=== PATIENT | female | born 1955 | race Caucasian/White ===

== ENCOUNTER 2020-03-08 11:14 | Inpatient (IN) | payer MEDICARE, OTHER ==
--- NOTE | 2020-03-08 11:33 | ER ---
Nurse's Notes [facility] Name: Mariana Turner Age: 65 yrs Sex: Female : 1955 Arrival Date: 03/08/2020 Time: 11:19 Bed 3 Private MD: Diagnosis: Chronic obstructive pulmonary disease with (acute) exacerbation;Hypoxemia Presentation: 03/08 11:19 Chief complaint: EMS states: Pt from home, called EMS for SOB, hx of COPD and CHF, ph reports that SOB began this morning, no relief w/ home nebulizer tx, 81% Spo2 on home o2 at 6L, improved to 97% on neb tx, d/c from [facility] yesterday. Coronavirus screen: Patient denies a cough. Patient reports shortness of breath or difficulty breathing. Patient denies measured and/or subjective temperature greater than 100.4F prior to today's visit. Patient denies travel on a cruise ship or to a country the [facility] currently lists as an affected area. Patient denies contact with known and/or suspected case of COVID-19. Ebola Screen: No symptoms or risks identified at this time. Initial Sepsis Screen: Does the patient meet any 2 criteria? No. Patient's initial sepsis screen is negative. Does the patient have a suspected source of infection? No. Patient's initial sepsis screen is negative. Risk Assessment: Do you want to hurt yourself or someone else? Patient reports no desire to harm self or others. Onset of symptoms was March 08, 2020. 11:19 Method Of Arrival: EMS: [facility] 11:19 Acuity: ANDRADE 2 ph Historical: - Allergies: 11:24 PENICILLINS; ph - PMHx: 11:24 CHF; COPD; Anxiety; Cancer, Breast; ph - Immunization history:: Adult Immunizations unknown. - Social history:: Smoking status: Patient reports the use of cigarette tobacco products, smokes one-half pack cigarettes per day. Screenin:24 Abuse screen: Denies threats or abuse. Denies injuries from another. Nutritional ph screening: No deficits noted. Tuberculosis screening: No symptoms or risk factors identified. Fall Risk None identified. Assessment: 11:30 General: Appears in no apparent distress. Behavior is cooperative, appropriate for age, ph anxious. 11:30 Pain: Denies pain. Neuro: Level of Consciousness is awake, alert, obeys commands, ph Oriented to person, place, time, situation. Cardiovascular: Reports shortness of breath, Denies chest pain, nausea, palpitations, syncope, vomiting, Rhythm is sinus tachycardia. Respiratory: Reports shortness of breath at rest labored breathing Airway is patent Respiratory effort is labored, using tripod position, Respiratory pattern is tachypnea. GI: No signs and/or symptoms were reported involving the gastrointestinal system. Derm: Skin is fragile, is thin, Skin is pink, warm \T\ dry. Musculoskeletal: Circulation, motion, and sensation intact. Range of motion: intact in all extremities. 11:45 Respiratory: Patient placed on BiPAP:. ph 12:18 Reassessment: Patient appears in no apparent distress at this time. Patient and/or ph family updated on plan of care and expected duration. Pain level reassessed. Pt sitting up in bed, bi-pap in place, reports that SOB is improving, hospitalist at bedside to speak w/ pt. 12:51 Reassessment: Report called to KURT Esteban. ph Vital Signs: 11:19 BP 174 / 112; Pulse 113; Resp 26; Temp 97.4; Pulse Ox 99% on Nebulizer Mask; Weight ph 56.7 kg; 12:19 Pulse 129; Resp 20; Pulse Ox 98% on BiPAP; ph 12:19 BP 93 / 53; ph 12:44 BP 142 / 69; Pulse 114; Resp 20; Temp 97.6; Pulse Ox 98% on BiPAP; ph ED Course: 11:19 Patient arrived in ED. ph 11:20 Chet Leonard MD is Attending Physician. dheeraj 11:23 Triage completed. ph 11:24 Arm band placed on right wrist. Patient placed in an exam room, on a stretcher, on ph oxygen, on laboratory monitor, on pulse oximetry. 11:25 Patient has correct armband on for positive identification. Bed in low position. Call ph light in reach. Side rails up X2. threat monitoring analyst on. Pulse ox on. NIBP on. Door closed. Warm blanket given. 11:27 Delroy Wharton, KURT is Primary Nurse. em 11:32 Doron West DO is Hospitalizing Provider. dheeraj 11:35 Inserted saline lock: 22 gauge in left hand, using aseptic technique. ph 12:03 XRAY Chest (1 view) In Process Unspecified. EDMS 13:04 EKG done, by nuclear medicine technologist. reviewed by Chet Leonard MD. at1 13:11 Naima Myers, RN is Primary Nurse. ph 13:15 No provider procedures requiring assistance completed. Patient admitted, IV remains in ph place. Administered Medications: 11:35 Drug: Xopenex 3.75 mg Route: Inhalation; ph 12:49 Follow up: Response: No adverse reaction ph 11:38 Drug: SOLU-Medrol 125 mg Route: IVP; Site: left hand; ph 12:49 Follow up: Response: No adverse reaction ph 11:40 Drug: Decadron - Dexamethasone 10 mg Route: IVP; Site: left hand; ph 12:48 Follow up: Response: No adverse reaction ph 11:47 Not Given (Physician Discretion): AtroVENT Aerosol 0.5 mg Inhalation once em 11:50 Drug: NS 0.9% 500 ml Route: IV; Rate: bolus; Site: left hand; ph 12:48 Follow up: Response: No adverse reaction; IV Status: Completed infusion; IV Intake: ph 500ml 11:50 Drug: levofloxacin 500 mg Volume: 100 ml; Route: IVPB; Infused Over: 60 mins; Site: ph left hand; 12:49 Follow up: Response: No adverse reaction; IV Status: Completed infusion ph 11:55 Drug: Ativan 0.5 mg Route: IVP; Site: left hand; ph 12:49 Follow up: Response: No adverse reaction; Anxiety decreased ph 12:26 Drug: NS 0.9% 1000 ml Route: IV; Rate: 125 ml/hr; Site: left hand; ph 12:48 Follow up: Response: No adverse reaction; IV Status: Infusion continued upon admission ph Intake: 12:48 IV: 500ml; Total: 500ml. ph Outcome: 11:33 Decision to Hospitalize by Provider. dheeraj 13:16 Patient left the ED. ph 13:16 Admitted to Tele accompanied by tech, via stretcher, room 215, with oxygen, with chart. ph 13:16 Condition: stable 13:16 Instructed on the need for admit. Signatures: Dispatcher [employer] Chet Albrecht MD MD cha Munoz, Edgar, RN RN em Maryam Aviles, bellperson EKG Tat1 Naima Myers, KURT RN ph Corrections: (The following items were deleted from the chart) 12:26 12:19 BP 168 / 118; ph ph 15:51 12:18 Reassessment: Patient appears in no apparent distress at this time. Patient ph and/or family updated on plan of care and expected duration. Pain level reassessed. Pt sitting up in bed, bi-pap in place, reports that SOB is improving, hospitalist at bedside to speak w/ pt ph
--- NOTE | 2020-03-08 11:33 | EDPHYS ---
Physician Documentation [facility] Name: Mariana Turner Age: 65 yrs Sex: Female : 1955 Arrival Date: 03/08/2020 Time: 11:19 Bed 3 Private MD: ED Physician Chet Leonard HPI: 03/08 11:28 This 65 yrs old Female presents to ER via EMS with complaints of Breathing dheeraj Difficulty. 11:28 The patient has shortness of breath at rest, with light activity. Onset: The dheeraj symptoms/episode began/occurred yesterday. Duration: The symptoms are continuous, and are steadily getting worse. The patient's shortness of breath has no apparent modifying factors, is aggravated by nothing, is alleviated by nebulizer treatment, pursed lip breathing, sitting up, application of supplemental oxygen. Associated signs and symptoms: Pertinent positives: non-productive cough. Severity of symptoms: At their worst the symptoms were mild in the emergency department the symptoms are unchanged. The patient has experienced similar episodes in the past, multiple times. Historical: - Allergies: 11:24 PENICILLINS; ph - PMHx: 11:24 CHF; COPD; Anxiety; Cancer, Breast; ph - Immunization history:: Adult Immunizations unknown. - Social history:: Smoking status: Patient reports the use of cigarette tobacco products, smokes one-half pack cigarettes per day. ROS: 11:29 Constitutional: Negative for fever, chills, and weight loss, Eyes: Negative for injury, dheeraj pain, redness, and discharge, ENT: Negative for injury, pain, and discharge, Neck: Negative for injury, pain, and swelling, Back: Negative for injury and pain, : Negative for injury, bleeding, discharge, and swelling, MS/Extremity: Negative for injury and deformity, Skin: Negative for injury, rash, and discoloration, Neuro: Negative for headache, weakness, numbness, tingling, and seizure, Psych: Negative for depression, anxiety, suicide ideation, homicidal ideation, and hallucinations, Allergy/Immunology: Negative for hives, rash, and allergies, Endocrine: Negative for neck swelling, polydipsia, polyuria, polyphagia, and marked weight changes, Hematologic/Lymphatic: Negative for swollen nodes, abnormal bleeding, and unusual bruising. 11:29 Cardiovascular: Positive for chest pain, palpitations. 11:29 Respiratory: Positive for cough, shortness of breath, at rest. Exam: 11:29 Constitutional: This is a well developed, well nourished patient who is awake, alert, dheeraj and in no acute distress. Head/Face: Normocephalic, atraumatic. Eyes: Pupils equal round and reactive to light, extra-ocular motions intact. Lids and lashes normal. Conjunctiva and sclera are non-icteric and not injected. Cornea within normal limits. Periorbital areas with no swelling, redness, or edema. ENT: Nares patent. No nasal discharge, no septal abnormalities noted. Tympanic membranes are normal and external auditory canals are clear. Oropharynx with no redness, swelling, or masses, exudates, or evidence of obstruction, uvula midline. Mucous membranes moist. Neck: Trachea midline, no thyromegaly or masses palpated, and no cervical lymphadenopathy. Supple, full range of motion without nuchal rigidity, or vertebral point tenderness. No Meningismus. Chest/axilla: Normal chest wall appearance and motion. Nontender with no deformity. No lesions are appreciated. Cardiovascular: Regular rate and rhythm with a normal S1 and S2. No gallops, murmurs, or rubs. Normal PMI, no JVD. No pulse deficits. Abdomen/GI: Soft, non-tender, with normal bowel sounds. No distension or tympany. No guarding or rebound. No evidence of tenderness throughout. Back: No spinal tenderness. No costovertebral tenderness. Full range of motion. Female : Normal external genitalia. Skin: Warm, dry with normal turgor. Normal color with no rashes, no lesions, and no evidence of cellulitis. MS/ Extremity: Pulses equal, no cyanosis. Neurovascular intact. Full, normal range of motion. Neuro: Awake and alert, GCS 15, oriented to person, place, time, and situation. Cranial nerves II-XII grossly intact. Motor strength 5/5 in all extremities. Sensory grossly intact. Cerebellar exam normal. Normal gait. Psych: Awake, alert, with orientation to person, place and time. Behavior, mood, and affect are within normal limits. 11:29 Respiratory: moderate respiratory distress is noted, Respirations: labored breathing, that is moderate, that is severe, Breath sounds: decreased breath sounds, are heard in the right upper lobe, left upper lobe, right middle lobe, left lower lobe, right lower lobe, left posterior upper lobe, right posterior upper lobe, left posterior lower lobe, right posterior middle lobe and right posterior lower lobe, Respiratory rate: 26 11:29 Musculoskeletal/extremity: DVT Exam: No signs of deep vein thrombosis. no pain, no swelling, no tenderness, negative Homans' sign noted on exam, no appreciated bluish discoloration, no erythema, no increased warmth. 13:15 ECG was reviewed by the Attending Physician. [facility] Vital Signs: 11:19 BP 174 / 112; Pulse 113; Resp 26; Temp 97.4; Pulse Ox 99% on Nebulizer Mask; Weight ph 56.7 kg; 12:19 Pulse 129; Resp 20; Pulse Ox 98% on BiPAP; ph 12:19 BP 93 / 53; ph 12:44 BP 142 / 69; Pulse 114; Resp 20; Temp 97.6; Pulse Ox 98% on BiPAP; ph MDM: 11:21 Patient medically screened. dheeraj 11:31 Data reviewed: vital signs, nurses notes, lab test result(s), EKG, radiologic studies. dheeraj 11:33 Differential diagnosis: Anxiety Reaction asthma, Bronchitis CHF exacerbation, Chronic dheeraj Obstructive Pulmonary Disease obstructed airway, bronchitis, flu, pneumonia, Pneumothorax pulmonary edema, Pulmonary Embolism reactive airway disease. Antibiotic administration: Levaquin given. The patient's Wells Deep Vein Thrombosis Score was calculated as follows: Total Score: 0-2 Pts- Low Risk. The patient's pulmonary embolism risk score was calculated as follows: Total Score: 0-2 points. This patient was found to be at low risk for a pulmonary embolism by using the Well's assessment criteria. Data interpreted: monitoring manager: rate is 113 beats/min, rhythm is normal sinus rhythm, Pulse oximetry: on nebs is 99 %. Test interpretation: by ED physician or midlevel provider: ECG, plain radiologic studies. Counseling: I had a detailed discussion with the patient and/or guardian regarding: the historical points, exam findings, and any diagnostic results supporting the discharge/admit diagnosis, the presence of at least one elevated blood pressure reading (>120/80) during this emergency department visit, lab results, radiology results, the need for further work-up and treatment in the hospital. ED course: failed outpt treatment x 2. 12:46 Immunization status: Influenza vaccine: ED course: pt improved on bi pap, abg [facility] 7.295/89.5/66/42.2. 03/08 11:28 Order name: Basic Metabolic Panel; Complete Time: 12:28 [facility] 03/08 11:28 Order name: CBC with Diff; Complete Time: 12:28 [facility] 03/08 11:28 Order name: LFT's; Complete Time: 12:28 [facility] 03/08 11:28 Order name: Magnesium; Complete Time: 12:28 [facility] 03/08 11:28 Order name: NT PRO-BNP; Complete Time: 12:28 [facility] 03/08 11:28 Order name: Troponin (emerg Dept Use Only); Complete Time: 12:28 [facility] 03/08 11:28 Order name: XRAY Chest (1 view); Complete Time: 12:28 [facility] 03/08 11:28 Order name: Blood Culture Adult (2) [facility] 03/08 11:28 Order name: ABG; Complete Time: 12:00 [facility] 03/08 11:28 Order name: BIPAP [facility] 03/08 12:19 Order name: CBC Smear Scan; Complete Time: 12:28 [facility]AL 03/08 11:28 Order name: EKG; Complete Time: 11:29 [facility] 03/08 11:28 Order name: Cardiac monitoring; Complete Time: 11:30 [facility] 03/08 11:28 Order name: IV Saline Lock; Complete Time: 11:30 [facility] 03/08 11:28 Order name: Labs collected and sent; Complete Time: 11:30 [facility] 03/08 11:28 Order name: O2 Per Protocol; Complete Time: 11:30 [facility] 03/08 11:28 Order name: O2 Sat Monitoring; Complete Time: 11:30 [facility] EC:15 Rate is 111 beats/min. Rhythm is regular. QRS [place] is Normal. [place] interval is normal. [facility] QRS interval is normal. QT interval is normal. No Q waves. T waves are Normal. Clinical impression: Abnormal EKG without significant change and Sinus tachycardia. Interpreted by me. Reviewed by me. Administered Medications: 11:35 Drug: Xopenex 3.75 mg Route: Inhalation; ph 12:49 Follow up: Response: No adverse reaction ph 11:38 Drug: SOLU-Medrol 125 mg Route: IVP; Site: left hand; ph 12:49 Follow up: Response: No adverse reaction ph 11:40 Drug: Decadron - Dexamethasone 10 mg Route: IVP; Site: left hand; ph 12:48 Follow up: Response: No adverse reaction ph 11:47 Not Given (Physician Discretion): AtroVENT Aerosol 0.5 mg Inhalation once em 11:50 Drug: NS 0.9% 500 ml Route: IV; Rate: bolus; Site: left hand; ph 12:48 Follow up: Response: No adverse reaction; IV Status: Completed infusion; IV Intake: ph 500ml 11:50 Drug: levofloxacin 500 mg Volume: 100 ml; Route: IVPB; Infused Over: 60 mins; Site: ph left hand; 12:49 Follow up: Response: No adverse reaction; IV Status: Completed infusion ph 11:55 Drug: Ativan 0.5 mg Route: IVP; Site: left hand; ph 12:49 Follow up: Response: No adverse reaction; Anxiety decreased ph 12:26 Drug: NS 0.9% 1000 ml Route: IV; Rate: 125 ml/hr; Site: left hand; ph 12:48 Follow up: Response: No adverse reaction; IV Status: Infusion continued upon admission ph Disposition: 03/08/20 11:33 Hospitalization ordered by Doron West for Inpatient Admission. Preliminary diagnosis are Chronic obstructive pulmonary disease with (acute) exacerbation, Hypoxemia. - Bed requested for Telemetry/MedSurg (Inpatient). - Status is Inpatient Admission. ph - Condition is Serious. - Problem is new. - Symptoms have improved. Signatures: Dispatcher [employer] EDMS Chet Leonard MD MD cha Attema, Lee, GROUNDSKEEPING [employer]ARDMAN-C GROUNDSKEEPING [employer]ARDMAN-Cla1 Naima Myers RN RN Nandini Holder Edgar RN em Corrections: (The following items were deleted from the chart) 12:42 11:33 Hospitalization Ordered by Doron West DO for Inpatient Admission. Preliminary eb diagnosis is Chronic obstructive pulmonary disease with (acute) exacerbation; Hypoxemia. Bed requested for Telemetry/MedSurg (Inpatient). Status is Inpatient Admission. Condition is Serious. Problem is new. Symptoms have improved. [facility] 13:16 12:42 03/08/2020 11:33 Hospitalization Ordered by Doron West DO for Inpatient ph Admission. Preliminary diagnosis is Chronic obstructive pulmonary disease with (acute) exacerbation; Hypoxemia. Bed requested for Telemetry/MedSurg (Inpatient). Status is Inpatient Admission. Condition is Serious. Problem is new. Symptoms have improved. eb
[2020-03-08] MEDS ORDERED: dexAMETHasone 10 MG/ML VIAL ONE (11:41)
[2020-03-08] MEDS ORDERED: LEVALBUTEROL 1.25 MG/3 ML NEB ONE (11:41)
[2020-03-08] MEDS ORDERED: Levofloxacin500mg IV 500 MG/100 ML BAG IV ONE (11:41)
[2020-03-08] MEDS ORDERED: METHYLPREDNISOLONE 125 MG INJ ONE (11:41)
[2020-03-08] MEDS ORDERED: NA CHLORIDE 0.9% 1,000 ML ONE (11:41)
[2020-03-08 11:43] LABS: Arterial Blood Carboxyhemoglob 7.9 % (0-1.5); Blood Gas Oxyhemoglobin 83.7 % (94-97); Blood O2 Saturation 91.9 % (92-98.5)
[2020-03-08] MEDS ORDERED: LORazepam 2 MG/ML VIAL ONE (11:51)
[2020-03-08 11:58] LABS: Absolute Lymphocytes (CBC) 4.7 K/uL (0.7-4.9); Basophils % 0.8 % (0-1.3); Lymphocytes % 23.3 % (15.3-44.8); MPV 7.4 fL (7.6-11.3)
[2020-03-08 12:10] LABS: ALT/SGPT 39 U/L (12-78); AST/SGOT 21 U/L (15-37); Albumin 3.5 g/dL (3.4-5.0); Alkaline Phosphatase 51 U/L (45-117); BUN Blood Urea Nitrogen 12 mg/dL (7-18); Bicarbonate 40 mmol/L (21-32); Bilirubin Direct < 0.1 mg/dL (0-0.2); Bilirubin Total 0.3 mg/dL (0.2-1.0); Glucose Level 85 mg/dL (74-106); Magnesium 2.3 mg/dL (1.8-2.4); NT PRO-BNP 329 pg/mL (<125); Potassium 3.8 mmol/L (3.5-5.1); Protein, Total 6.7 g/dL (6.4-8.2); Sodium Level 140 mmol/L (136-145); Troponin (Emerg Dept Use Only) 0.03 ng/mL (0.0-0.045)
[2020-03-08 12:19] LABS: Blood Morphology Comment NOT SEEN (NOT SEEN); Platelet Estimate ADEQ; Urine White Blood Cell Casts OK
--- NOTE | 2020-03-08 12:24 | RAD REPORT ---
EXAM DESCRIPTION: RAD - Chest Single View - 03/08/2020 12:02 pm CLINICAL HISTORY: COPD COMPARISON: None TECHNIQUE: AP portable chest image was obtained 03/08/2020 12:02 pm . FINDINGS: Lungs are hyperexpanded and fibrotic. Costophrenic angle blunting is present with flattene d diaphragms. Surgical clips overlie the right-side of the chest presumably from right mastectomy. No focal mass or consolidation. No failure or volume overload. Heart and vasculature are normal. No pneumothorax. Cardiac leads overlie the chest. No acute bony ab normality seen. No acute aortic findings suspected. IMPRESSION: Fibrotic and obstructive lung changes. No acute cardiopulmonary finding seen.
--- NOTE | 2020-03-08 13:09 | P.HP ---
Certification for Inpatient Patient admitted to: Inpatient With expected LOS: >2 Midnights Patient will require the following post-hospital care: None Practitioner: I am a practitioner with admitting privileges, knowledge of patient current condition, hospital course, and medical plan of care. Services: Services provided to patient in accordance with Admission requirements found in Title 42 Section 412.3 of the Code of Federal Regulations <Shawn Kraft - Last Filed: 03/08/20 13:03> Patient History Date of Service: 03/08/20 Primary Care Provider: Noelle Reason for admission: Acute on chronic respiratory failure, COPD exacerbation History of Present Illness: 65-year-old female with history of COPD, CHF, hypertension, anxiety, tobacco abuse presents to the emergency department with chief complaint of shortness of breath which she has had on and off for the past couple of weeks. Patient was 83% on 6 L per nasal cannula. Patient does use home oxygen at 3-4 L per nasal cannula. Patient was recently discharged from [facility] after multiple recent admissions at their facility. Patient was placed on BiPAP in the emergency department. ED provider wishes to admit patient for further evaluation management. When I saw the patient in the emergency department she was still on BiPAP and moderate respiratory distress. Patient was able to speak with me. Patient does not appear septic at this time. Patient will be admitted for further evaluation and management. Home medications list reviewed: Yes - Past Medical/Surgical History Has patient received pneumonia vaccine in the past: Yes Diabetic: No -: COPD -: Hypertension -: CHF -: Anxiety -: Tobacco abuse -: Alcohol abuse -: Right mastectomy Psychosocial/ Personal History: Patient lives at home alone, patient does have home health - Family History Family History: Reviewed- Non-Contributory - Social History Smoking Status: Heavy Tobacco smoker (>10 cigarettes/day) Counseled patient to stop smoking for: less than 10 minutes Alcohol use: Yes CD- Drugs: No Caffeine use: Yes Place of Residence: Home <Shawn Kraft - Last Filed: 03/08/20 13:03> Date of Service: 03/08/20 History of Present Illness: Patient seen and examined. Agree with assessment by nurse practitioner. Patient reports that she has been in and out of [facility] multiple times for COPD exacerbation. Unclear what type of workup she has had. Unclear why she continues to have to go back to the hospital. Patient came in with respiratory failure requiring BiPAP. Patient with hypoxia and hypercapnia. - Past Medical/Surgical History -: CHF likely diastolic -: Depression with anxiety - Family History Family History: Reviewed- Non-Contributory <Doron West - Last Filed: 03/08/20 15:52> Review of Systems General: Unremarkable Eyes: Unremarkable ENT: Unremarkable Respiratory: Shortness of Breath, SOB with Excertion, Wheezing, As per HPI Cardiovascular: Unremarkable Gastrointestinal: Unremarkable Genitourinary: Unremarkable Musculoskeletal: Unremarkable Integumentary: Unremarkable Neurological: Unremarkable Lymphatics: Unremarkable <Shawn Kraft - Last Filed: 03/08/20 13:03> Physical Examination - Physical Exam General: Alert, In no apparent distress, Oriented x3 HEENT: Atraumatic, Normocephalic Neck: Supple Respiratory: Diminished, Expiratory wheezes Cardiovascular: No edema, Normal S1 S2 Capillary refill: <2 Seconds Gastrointestinal: Normal bowel sounds, Soft and benign Musculoskeletal: No clubbing, No swelling Integumentary: No significant lesion, No tenderness/swelling Neurological: Normal speech, Normal tone - Studies Laboratory Data (last 24 hrs) 03/08/20 11:40: WBC 20.0 H, Hgb 13.9, Hct 42.0, Plt Count 349 03/08/20 11:40: Sodium 140, Potassium 3.8, BUN 12, Creatinine 0.48 L, Glucose 85, Magnesium 2.3, Total Bilirubin 0.3, AST 21, ALT 39, Alkaline Phosphatase 51 <Shawn Kraft - Last Filed: 03/08/20 13:03> - Physical Exam Cardiovascular: Regular rate/rhythm Neurological: Normal affect - Studies Laboratory Data (last 24 hrs) 03/08/20 11:40: WBC 20.0 H, Hgb 13.9, Hct 42.0, Plt Count 349 03/08/20 11:40: Sodium 140, Potassium 3.8, BUN 12, Creatinine 0.48 L, Glucose 85, Magnesium 2.3, Total Bilirubin 0.3, AST 21, ALT 39, Alkaline Phosphatase 51 <Doron West - Last Filed: 03/08/20 15:52> Assessment and Plan - Plan Assessment Acute on chronic respiratory failure with hypoxia and hypercapnia on chronic home oxygen therapy COPD exacerbation Chronic diastolic heart failure Tobacco abuse Alcohol abuse Hypertension Anxiety History of breast cancer Plan Acute on chronic respiratory failure with hypoxia and hypercapnia on chronic home oxygen therapy: Will continue with BiPAP at this time. Pulmonology has been consulted on this case. Will obtain pulse oximetry levels every shift and as needed. Will provide with parental steroids and antibiotics. Will also provide patient with nebulized albuterol and Atrovent treatments. DVT prophylaxis with Lovenox 40 mg subcutaneous daily. Anticipate clinical improvement in the next 24-48 hr. Appreciate further input from pulmonology. COPD exacerbation: Continue with above. Will obtain and continue patient's home medication. Chronic diastolic heart failure: Will obtain echocardiogram as patient states she has not had 1 recently. Will continue patient's home medications. Tobacco abuse: Counseled on need for tobacco cessation. Will continue with medical management as necessary. Alcohol abuse: Counseled on need for alcohol cessation. Will continue with medical management as necessary. Hypertension: Will obtain and continue patient's home medications. Anxiety: Will obtain and continue patient on medication. History of breast cancer: The patient is status post right mastectomy. Discharge Plan: Home Plan to discharge in: Greater than 2 days - Advance Directives Does patient have a Living Will: No Does patient have a Durable POA for Healthcare: No - Code Status/Comfort Care Code Status Assessed: Yes Code Status: Full Code Critical Care: No Time Spent Managing Pts Care (In Minutes): 55 <Shawn Kraft - Last Filed: 03/08/20 13:03> - Plan Patient seen and examined. Agree with evaluation, assessment and plan of care by nurse practitioner. Care discussed in detail. Continue with COPD treatment. When I evaluated the patient she was off BiPAP. Patient has responded well to therapy. Will adjust IV steroid to oral. Continue IV antibiotic therapy. Will also obtain echocardiogram to further evaluate for possible underlying chronic diastolic CHF. Medications reviewed. Continue to monitor closely. Will provide nicotine patch. Await further recommendations by pulmonology. Anticipate improvement over the next 24 hr. Likely discharge as early as tomorrow. Will consult hospice social worker to help with discharge planning including continuation of home health and home oxygen. <Doron West - Last Filed: 03/08/20 15:52>
[2020-03-08] MEDS ORDERED: ONDANSETRON 4 MG/2 ML VIAL IV PRN (13:14)
[2020-03-08] MEDS ORDERED: NA CHLORIDE 0.9% 1,000 ML IV SCH (13:14)
[2020-03-08] MEDS ORDERED: ALBUTEROL 2.5 MG/3 ML NEB SOL NEB PRN (13:14)
[2020-03-08] MEDS ORDERED: IPRATROPIUM BROM 0.5MG/2.5ML NEB PRN (13:14)
[2020-03-08] MEDS ORDERED: ACETAMINOPHEN 500 MG TAB PO PRN (13:14)
[2020-03-08] MEDS ORDERED: Levofloxacin500mg IV 500 MG/100 ML BAG IV SCH (13:14)
[2020-03-08 13:28] VITALS: BMI 22.4
[2020-03-08] MEDS ORDERED: POTASSIUM CL SA 10 MEQ TAB PO ONE (13:48)
[2020-03-08] MEDS ORDERED: ALBUTEROL INHALER 60 PUFF/8 GM IH PRN (15:45)
[2020-03-08] MEDS ORDERED: METHYLPREDNISOLONE 40 MG INJ IV SCH (17:00)
[2020-03-08] MEDS: ALPRAZOLAM 0.5 MG TABLET PO PRN (17:53)
[2020-03-08] MEDS: predniSONE 20 MG TAB PO SCH ×2 (19:43→21:00)
[2020-03-08] MEDS: IPRATROPIUM BROM 0.5MG/2.5ML NEB PRN (20:25)
[2020-03-08] MEDS: LEVALBUTEROL 0.63 MG/3 ML NEB NEB PRN (20:25)
[2020-03-08] MEDS ORDERED: DULERA 100/5 (MOMETASONE/FORMOTEROL) INHALER IH SCH (21:00)
[2020-03-08] MEDS ORDERED: BREO ELLIPTA IH SCH (21:00)
[2020-03-09] MEDS: IPRATROPIUM BROM 0.5MG/2.5ML NEB PRN ×3 (00:35→21:05)
[2020-03-09] MEDS: LEVALBUTEROL 0.63 MG/3 ML NEB NEB PRN ×3 (00:35→21:05)
[2020-03-09 04:41] LABS: Absolute Lymphocytes (CBC) 0.7 K/uL (0.7-4.9); Basophils % 0.3 % (0-1.3); Lymphocytes % 3.4 % (15.3-44.8); MPV 7.5 fL (7.6-11.3)
[2020-03-09 05:37] LABS: BUN Blood Urea Nitrogen 19 mg/dL (7-18); Glucose Level 143 mg/dL (74-106); Magnesium 2.6 mg/dL (1.8-2.4); Potassium 4.8 mmol/L (3.5-5.1); Sodium Level 139 mmol/L (136-145)
[2020-03-09 05:40] LABS: Bicarbonate 42 mmol/L (21-32)
[2020-03-09 06:26] LABS: Blood O2 Saturation 96.9 % (92-98.5)
--- NOTE | 2020-03-09 06:26 | EKG ---
Test Date: 2020-03-08 Test Time: 12:55:28 Pool Table Mechanic: ARSENIO MEASUREMENT RESULTS: Intervals: Rate: 111 [place]: 146 QRSD: 74 QT: 324 QTc: 440 [place]: P: 83 [place]: 146 QRS: 109 T: 64 INTERPRETIVE STATEMENTS: Sinus tachycardia Possible Left atrial enlargement Rightward axis Pulmonary disease pattern Abnormal ECG No previous ECG available for comparison Electronically Signed On 03-09-20 06:24:28 CDT by Bakari Mcdowell
[2020-03-09 06:27] LABS: Arterial Blood Carboxyhemoglob 2.4 % (0-1.5); Blood Gas Oxyhemoglobin 93.4 % (94-97)
[2020-03-09] MEDS ORDERED: VITAMIN D3 PO SCH (09:00)
[2020-03-09] MEDS ORDERED: Levofloxacin500mg IV 500 MG/100 ML BAG IV SCH (09:00)
[2020-03-09] MEDS ORDERED: CALCIUM CARBONATE PO SCH (09:00)
[2020-03-09] MEDS ORDERED: predniSONE 20 MG TAB PO SCH (09:00)
[2020-03-09] MEDS: acetaZOLAMIDE 250 MG TAB PO SCH (09:20)
[2020-03-09] MEDS: BUPROPION HCL XL 150 MG TAB PO SCH (09:20)
[2020-03-09] MEDS: ENOXAPARIN 40 MG/0.4 ML SQ SCH (09:20)
[2020-03-09] MEDS: CALCIUM CARB 500MG/VIT D 200 IU TAB PO SCH (09:20)
[2020-03-09] MEDS: predniSONE 20 MG TAB PO SCH ×2 (09:20→21:14)
[2020-03-09] MEDS: ARFORMOTEROL TARTRATE 15 MCG/2 ML VIAL.NEB NEB SCH ×2 (09:34→21:05)
--- NOTE | 2020-03-09 11:11 | ECHO ---
HEIGHT: 5 ft 2 in WEIGHT: 123 lb 0 oz DATE OF STUDY: 03/09/[address]: Doron West DO 2-DIMENSIONAL: YES M.MODE: YES DOPPLER: YES COLOR FLOW: YES TDS: NO PORTABLE: NO DEFINITY: NO BUBBLE STUDY: NO DIAGNOSIS: SHORTNESS OF BREATH, COPD CARDIAC HISTORY: CATHERIZATION: NO SURGERY: NO PROSTHETIC VALVE: NO PACEMAKER: NO MEASUREMENTS (cm) DIASTOLIC (NORMALS) SYSTOLIC (NORMALS) IVSd 0.9 (0.6-1.2) LA Diam (1.9-4.0) LVEF 79% LVIDd 4.5 (3.5-5.7) LVIDs 2.3 (2.0-3.5) %FS 48% LVPWd 1.0 (0.6-1.2) Ao Diam 2.5 (2.0-3.7) 2 DIMENSIONAL ASSESSMENT: RIGHT ATRIUM: NORMAL LEFT ATRIUM: NORMAL RIGHT VENTRICLE: NORMAL LEFT VENTRICLE: NORMAL TRICUSPID VALVE: NORMAL MITRAL VALVE: NORMAL PULMONIC VALVE: NORMAL AORTIC VALVE: NORMAL PERICARDIAL EFFUSION: NONE AORTIC ROOT: NORMAL LEFT VENTRICULAR WALL MOTION: NORMAL DOPPLER/COLOR FLOW: NORMAL COMMENTS: NORMAL 2D ECHOCARDIOGRAM WITH DOPPLER. NO WALL MOTION ABNORMALITY. NO EFFUSION. TECHNOLOGIST: Kolby PATEL
--- NOTE | 2020-03-09 11:55 | P.CNS ---
Date of Consult: 03/09/20 Primary Care Provider: Noelle Chief Complaint: Acute on chronic respiratory failure, COPD exacerbation History of Present Illness: Patient is 65 years of age has a history of COPD recurrent hospitalization this year for is COPD exacerbation patient still continues to smoke and appeared in the hospital with again short of breath denies any symptoms of fever chills no evidence of infection patient is compliant with her bronchodilators recently more from another city patient is hypoxic hypercapnic Allergies Penicillins Allergy (Verified 03/08/20 13:14) Rash Home Medications: ALPRAZolam [Xanax*] 1 tab PO BID PRN 03/08/20 Bupropion *Xl* [Wellbutrin XL*] 1 tab PO DAILY 03/08/20 Calcium Carbonate/Vitamin D3 [Calcium 500-Vit D3 10 Mcg Chew] 1 tab PO DAILY 03/08/20 Doxycycline Hyclate 1 tab PO DAILY 03/08/20 Furosemide [Lasix*] 1 tab PO DAILY 03/08/20 Ipratropium [place] 1 inh IH Q6H PRN 03/08/20 Levalbuterol [Xopenex*] 1 inh IH Q6H PRN 03/08/20 Sodium Chloride For Inhalation [Hyper-Cristian] 3 ml IH Q6H PRN 03/08/20 predniSONE [Deltasone*] 1 tab PO DAILY 03/08/20 Fluticasone/Umeclidin/Vilanter [Trelegy Ellipta 100-62.5-25] 1 each IH DAILY 30 Days #30 [email or web address] 03/09/20 - Past Medical/Surgical History Diabetic: No -: COPD -: Hypertension -: CHF likely diastolic -: Depression with anxiety -: Tobacco abuse -: Alcohol abuse -: Right mastectomy Psychosocial/ Personal History: Patient lives at home alone, patient does have home health - Family History Mother Medical History: Cancer Notes: breast Father History Unknown: Yes Medical History: Lung disease Notes: asbestosis - Social History Smoking Status: Current every day smoker Alcohol use: Yes CD- Drugs: No Caffeine use: Yes Place of Residence: Home Review of Systems 10-point ROS is otherwise unremarkable General: Weakness Respiratory: Cough, Shortness of Breath Physical Examination Temp Pulse Resp BP Pulse Ox 98.3 F 79 20 133/67 95 03/09/20 08:00 03/09/20 08:00 03/09/20 08:00 03/09/20 08:00 03/09/20 08:00 General: Alert, In no apparent distress, Oriented x3 HEENT: Atraumatic Neck: Supple Respiratory: Expiratory wheezes Cardiovascular: No edema, Regular rate/rhythm, Normal S1 S2 Gastrointestinal: Normal bowel sounds, Soft and benign, Non-distended Laboratory Data (last 24 hrs) 03/08/20 11:40: WBC 20.0 H, Hgb 13.9, Hct 42.0, Plt Count 349 03/08/20 11:40: Sodium 140, Potassium 3.8, BUN 12, Creatinine 0.48 L, Glucose 85, Magnesium 2.3, Total Bilirubin 0.3, AST 21, ALT 39, Alkaline Phosphatase 51 - Problems (1) Respiratory failure with hypoxia and hypercapnia Current Visit: Yes Status: Acute Plan: Patient is 65 years of age with a history of of COPD I suspect severe recurrent hospitalizations this year patient is hypoxic hypercapnic elevated white count chest x-rays clear patient is taking Breo at home will qualify for noninvasive ventilator BiPAP is not suitable for her patient needs a noninvasive ventilator to prevent recurrent hospitalization change inhaler to trilogy continue with p.o. levofloxacin and doxycycline elevated white count may be from steroids pro calcitonin level is negative patient continues to smoke 1 pack a day console not to smoke at Diamox at discharge 250 mg daily continue with prednisone I think her elevated white count may view from the high doses of steroids patient will need outpatient pulmonary function testing Qualifiers: Chronicity: chronic Qualified Code(s): J96.11 - Chronic respiratory failure with hypoxia; J96.12 - Chronic respiratory failure with hypercapnia
--- NOTE | 2020-03-09 15:00 | P.PN ---
Subjective Date of Service: 03/09/20 Primary Care Provider: Noelle Chief Complaint: Acute on chronic respiratory failure, COPD exacerbation Subjective: Improving Physical Examination - Vital Signs Temperature: 97.2 F Blood Pressure: 106/62 Pulse: 77 Respirations: 20 Pulse Ox (%): 98 - Physical Exam General: Alert HEENT: Atraumatic Neck: Supple Respiratory: Expiratory wheezes Cardiovascular: Normal pulses, Regular rate/rhythm Gastrointestinal: Normal bowel sounds, Soft and benign, Non-distended, No masses, No rebound, No guarding Musculoskeletal: No erythema, No tenderness, No warmth Integumentary: No erythema, No warmth, No cyanosis Neurological: Normal speech, Normal strength at 5/5 x4 extr, Normal tone, Normal affect - Studies Medications List Reviewed: Yes Assessment & Plan Discharge Plan: Home Plan to discharge in: 48 Hours Physician Review Additional Text: Assessment Acute on chronic respiratory failure with hypoxia and hypercapnia on chronic home oxygen therapy COPD exacerbation Chronic diastolic heart failure Tobacco abuse Alcohol abuse Hypertension Anxiety History of breast cancer Plan Acute on chronic respiratory failure with hypoxia and hypercapnia on chronic home oxygen therapy: Patient has improved. Case discussed at length with pu lmonology. Pulmonology to make arrangements for noninvasive ventilator. Continue COPD treatment. Pulmonology to further adjust. Will discuss with social security assessor to help in this process. Anticipate discharge in the next 48 hr. COPD exacerbation: Continue with above. Will obtain and continue patient's home medication. Chronic diastolic heart failure: Will obtain echocardiogram. Will continue patient's home medications. Tobacco abuse: Counseled on need for tobacco cessation. Will continue with medical management as necessary. Alcohol abuse: Counseled on need for alcohol cessation. Will continue with medical management as necessary. Hypertension: Will obtain and continue patient's home medications. Anxiety: Will obtain and continue patient on medication. History of breast cancer: The patient is status post right mastectomy. Time Spent Managing Pts Care (In Minutes): 55
[2020-03-09] MEDS: ALPRAZOLAM 0.5 MG TABLET PO PRN (21:14)
[2020-03-10 06:37] LABS: Absolute Lymphocytes (CBC) 0.8 K/uL (0.7-4.9); Basophils % 0.1 % (0-1.3); Hematocrit 37.6 % (36.0-45.0); Lymphocytes % 5.7 % (15.3-44.8); MPV 7.4 fL (7.6-11.3); RBC Red Blood Cell Count 3.88 M/uL (3.86-4.86)
[2020-03-10 06:49] LABS: BUN Blood Urea Nitrogen 18 mg/dL (7-18); Bicarbonate 35 mmol/L (21-32); Glucose Level 121 mg/dL (74-106); Magnesium 2.6 mg/dL (1.8-2.4); Potassium 4.5 mmol/L (3.5-5.1); Sodium Level 141 mmol/L (136-145)
[2020-03-10] MEDS: LEVALBUTEROL 0.63 MG/3 ML NEB NEB PRN ×2 (07:24→16:46)
[2020-03-10] MEDS: IPRATROPIUM BROM 0.5MG/2.5ML NEB PRN ×2 (07:24→16:46)
--- NOTE | 2020-03-10 07:25 | EKG ---
Test Date: 2020-03-09 Test Time: 19:01:23 Case Manager Specialist: RT MEASUREMENT RESULTS: Intervals: Rate: 77 [place]: 140 QRSD: 86 QT: 378 QTc: 427 [place]: P: 76 [place]: 140 QRS: 72 T: 74 INTERPRETIVE STATEMENTS: Normal sinus rhythm Normal ECG Compared to ECG 03/08/2020 12:55:28 Sinus tachycardia no longer present Right-axis deviation no longer present Electronically Signed On 03-10-20 07:24:07 CDT by Bakari Mcdowell
[2020-03-10] MEDS: ARFORMOTEROL TARTRATE 15 MCG/2 ML VIAL.NEB NEB SCH ×2 (07:41→20:10)
--- NOTE | 2020-03-10 08:15 | P.PN ---
Subjective Date of Service: 03/10/20 Primary Care Provider: Noelle Chief Complaint: Acute on chronic respiratory failure, COPD exacerbation Subjective: Improving (Patient is doing much better on her BiPAP still little short of breath) Review of Systems General: Weakness Respiratory: Shortness of Breath Physical Examination - Vital Signs Temperature: 97.6 F Blood Pressure: 124/66 Pulse: 60 Respirations: 20 Pulse Ox (%): 96 - Physical Exam General: Alert, In no apparent distress, Oriented x3 Respiratory: Expiratory wheezes Cardiovascular: No edema, Regular rate/rhythm, Normal S1 S2 - Studies Medications List Reviewed: Yes Assessment & Plan - Problems (Diagnosis) (1) Respiratory failure with hypoxia and hypercapnia Current Visit: Yes Status: Acute Plan: Patient admitted with hypoxic hypercapnic respiratory failure secondary to COPD qualifies for a noninvasive ventilator discharged home on low-dose prednisone 10 mg daily fax in a prescription for trilogy continue with nebulizers no antibiotics needed white count is declining cultures all negative no evidence of sepsis seeing she needs to be on Diamox follow-up with me in 1-2 weeks Qualifiers: Chronicity: chronic Qualified Code(s): J96.11 - Chronic respiratory failure with hypoxia; J96.12 - Chronic respiratory failure with hypercapnia Physician Review Additional Text: Assessment Acute on chronic respiratory failure with hypoxia and hypercapnia on chronic home oxygen therapy COPD exacerbation Chronic diastolic heart failure Tobacco abuse Alcohol abuse Hypertension Anxiety History of breast cancer Plan Acute on chronic respiratory failure with hypoxia and hypercapnia on chronic home oxygen therapy: Patient has improved. Case discussed at length with pulmonology. Pulmonology to make arrangements for noninvasive ventilator. Continue COPD treatment. Pulmonology to further adjust. Will discuss with social security benefits interviewer to help in this process. Anticipate discharge in the next 48 hr. COPD exacerbation: Continue with above. Will obtain and continue patient's home medication. Chronic diastolic heart failure: Will obtain echocardiogram. Will continue patient's home medications. Tobacco abuse: Counseled on need for tobacco cessation. Will continue with medical management as necessary. Alcohol abuse: Counseled on need for alcohol cessation. Will continue with medical management as necessary. Hypertension: Will obtain and continue patient's home medications. Anxiety: Will obtain and continue patient on medication. History of breast cancer: The patient is status post right mastectomy.
[2020-03-10] MEDS: BUPROPION HCL XL 150 MG TAB PO SCH (08:28)
[2020-03-10] MEDS: NICOTINE 21 MG/PAT TD SCH (08:28)
[2020-03-10] MEDS: acetaZOLAMIDE 250 MG TAB PO SCH (08:28)
[2020-03-10] MEDS: CALCIUM CARB 500MG/VIT D 200 IU TAB PO SCH (08:28)
[2020-03-10] MEDS: predniSONE 20 MG TAB PO SCH ×2 (08:28→21:14)
[2020-03-10] MEDS: ENOXAPARIN 40 MG/0.4 ML SQ SCH (08:29)
--- NOTE | 2020-03-10 11:29 | P.DS ---
Admission Date: 03/08/20 Discharge Date: 03/10/20 Primary Care Provider: Dr. Drake Disposition: ROUTINE DISCHARGE Discharge Condition: GOOD Reason for Admission: Acute on chronic respiratory failure, COPD exacerbation Consultations: Pulmonary-Dr. Martins Procedures: CXR: FINDINGS: Lungs are hyperexpanded and fibrotic. Costophrenic angle blunting is present with flattened diaphragms. Surgical clips overlie the right-side of the chest presumably from right mastectomy. No focal mass or consolidation. No failure or volume overload. Heart and vasculature are normal. No pneumothorax. Cardiac leads overlie the chest. No acute bony abnormality seen. No acute aortic findings suspected. IMPRESSION: Fibrotic and obstructive lung changes. No acute cardiopulmonary finding seen. ECHO: EF 79% LEFT VENTRICULAR WALL MOTION: NORMAL DOPPLER/COLOR FLOW: NORMAL COMMENTS: NORMAL 2D ECHOCARDIOGRAM WITH DOPPLER. NO WALL MOTION ABNORMALITY. NO EFFUSION. Medical Problem List: Acute on chronic respiratory failure with hypoxia and hypercapnia on chronic ho me oxygen therapy COPD exacerbation Chronic diastolic heart failure Tobacco abuse Alcohol abuse Anxiety History of breast cancer Brief History of Present Illness: Patient seen and examined. Agree with assessment by nurse practitioner. Patient reports that she has been in and out of [facility] multiple times for COPD exacerbation. Unclear what type of workup she has had. Unclear why she continues to have to go back to the hospital. Patient came in with respiratory failure requiring BiPAP. Patient with hypoxia and hypercapnia. Hospital Course: Patient presented with acute on chronic respiratory failure with hypoxia and hypercapnia related to COPD exacerbation. Patient uses home oxygen. Patient has been hospitalized multiple times in the past at [facility]. Patient seen and evaluated by pulmonology. Patient received COPD treatment including BiPAP. Patient responded to therapy well. Pulmonology recommends non invasive ventilator for the patient. This has been arranged. At discharge she will continue with non invasive ventilator at home. Instructions provided. At discharge she will also continue with home oxygen to maintain sats above 90%. At discharge patient will continue with prednisone 10 mg daily, Trelegy 1 puff daily and Xopenex 2 puffs 3 times a day as needed for shortness of breath. Torsten waggoner will also continue with Diamox 250 mg daily due to her hypercapnia and underlying CHF. Recommend follow up with pulmonology in 1-2 weeks to follow up this hospitalization. Education on COPD and NIV provided. Patient with chronic diastolic CHF. Echocardiogram shows normal ejection fraction. As recommended above patient will continue with Diamox 250 mg daily due to CHF and hypercapnia. Recommend a 1500 cc per day fluid restriction and low-salt diet. If her weight increases by more than 5 lb she is to contact pulmonology for further recommendation. Further adjustment in medication can be done by pulmonology. Follow up with pulmonology as recommended above. Patient with underlying tobacco abuse. Tobacco cessation addressed in detail. Will provide nicotine patch daily to help with this. Patient with history of alcohol abuse. Alcohol cessation education provided. This can be further monitored by her PCP or pulmonology. Patient with anxiety. At discharge she will continue with Wellbutrin XL 150 mg daily and Xanax 0.5 mg 1 pill twice daily as needed for anxiety. Recommend follow up with psychiatry in the future to further address and monitor. Vital Signs/Physical Exam: Temp Pulse Resp BP Pulse Ox 97.6 F 60 20 124/66 96 03/10/20 08:14 03/10/20 08:14 03/10/20 08:14 03/10/20 08:14 03/10/20 08:14 General: Alert, In no apparent distress, Oriented x3, Cooperative HEENT: Atraumatic Neck: Supple Respiratory: Clear to auscultation bilaterally Cardiovascular: Normal pulses, Regular rate/rhythm Gastrointestinal: Normal bowel sounds Neurological: Normal speech, Normal strength at 5/5 x4 extr, Normal tone, Normal affect Laboratory Data at Discharge: WBC 14.4 K/uL (4.3-10.9) H D 03/10/20 06:02 Hgb 12.0 g/dL (12.0-15.0) 03/10/20 06:02 Hct 37.6 % (36.0-45.0) 03/10/20 06:02 Plt Count 308 K/uL (152-406) 03/10/20 06:02 Sodium 141 mmol/L (136-145) 03/10/20 06:02 Potassium 4.5 mmol/L (3.5-5.1) 03/10/20 06:02 BUN 18 mg/dL (7-18) 03/10/20 06:02 Creatinine 0.51 mg/dL (0.55-1.3) L 03/10/20 06:02 Glucose 121 mg/dL (74-106) H 03/10/20 06:02 Magnesium 2.6 mg/dL (1.8-2.4) H 03/10/20 06:02 Total Bilirubin 0.3 mg/dL (0.2-1.0) 03/08/20 11:40 AST 21 U/L (15-37) 03/08/20 11:40 ALT 39 U/L (12-78) 03/08/20 11:40 Alkaline Phosphatase 51 U/L (45-117) 03/08/20 11:40 Home Medications: ALPRAZolam [Xanax*] 1 tab PO BID PRN 03/08/20 Bupropion *Xl* [Wellbutrin XL*] 1 tab PO DAILY 03/08/20 Calcium Carbonate/Vitamin D3 [Calcium 500-Vit D3 10 Mcg Chew] 1 tab PO DAILY 03/08/20 Ipratropium [place] 1 inh IH Q6H PRN 03/08/20 Levalbuterol [Xopenex*] 1 inh IH Q6H PRN 03/08/20 Sodium Chloride For Inhalation [Hyper-Cristian] 3 ml IH Q6H PRN 03/08/20 Fluticasone/Umeclidin/Vilanter [Trelegy Ellipta 100-62.5-25] 1 each IH DAILY 30 Days #30 blst.w.dev 03/09/20 Nicotine [Nicoderm*] 21 mg TD DAILY #30 patch.td24 03/10/20 acetaZOLAMIDE [Diamox*] 250 mg PO DAILY #30 tab 03/10/20 predniSONE [Deltasone*] 1 tab PO DAILY #30 tab 03/10/20 New Medications: predniSONE [Deltasone*] 1 tab PO DAILY #30 tab acetaZOLAMIDE [Diamox*] 250 mg PO DAILY #30 tab Nicotine [Nicoderm*] 21 mg TD DAILY #30 patch.td24 Fluticasone/Umeclidin/Vilanter [Trelegy Ellipta 100-62.5-25] 1 each IH DAILY 30 Days #30 blst.w.dev Patient Discharge Instructions: 1. Recommend follow up with PCP in 1 week to follow up this hospitalization. 2. Patient presented with acute on chronic respiratory failure with hypoxia and hypercapnia related to COPD exacerbation. Patient uses home oxygen. Patient has been hospitalized multiple times in the p ast at [facility]. Patient seen and evaluated by pulmonology. Patient received COPD treatment including BiPAP. Patient responded to therapy well. Pulmonology recommends non invasive ventilator for the patient. This has been arranged. At discharge she will continue with non invasive ventilator at home. Instructions provided. At discharge she will also continue with home oxygen to maintain sats above 90%. At discharge patient will continue with prednisone 10 mg daily, Trelegy 1 puff daily and Xopenex 2 puffs 3 times a day as needed for shortness of breath. Patient will also continue with Diamox 250 mg daily due to her hypercapnia and underlying CHF. Recommend follow up with pulmonology in 1-2 weeks to follow up this hospitalization. Education on COPD and NIV provided. 3. Patient with chronic diastolic CHF. Echocardiogram shows normal ejection fraction. As recommended above patient will continue with Diamox 250 mg daily due to CHF and hypercapnia. Recommend a 1500 cc per day fluid restriction and low-salt diet. If her weight increases by more than 5 lb she is to contact pulmonology for further recommendation. Further adjustment in medication can be done by pulmonology. Follow up with pulmonology as recommended above. 4. Patient with underlying tobacco abuse. Tobacco cessation addressed in detail. Will provide nicotine patch daily to help with this. 5. Patient with history of alcohol abuse. Alcohol cessation education provided. This can be further monitored by her PCP or pulmonology. 6. Patient with anxiety. At discharge she will continue with Wellbutrin XL 150 mg daily and Xanax 0.5 mg 1 pill twice daily as needed for anxiety. Recommend follow up with psychiatry in the future to further address and monitor. Diet: AHA Activity: Fall precautions Time spent managing pt's care (in minutes): 55
[2020-03-10] MEDS: ALPRAZOLAM 0.5 MG TABLET PO PRN ×2 (12:40→21:15)
[2020-03-11] MEDS: ARFORMOTEROL TARTRATE 15 MCG/2 ML VIAL.NEB NEB SCH (08:00)
[2020-03-11 08:33] VITALS: O2SAT 98
[2020-03-11] MEDS: ENOXAPARIN 40 MG/0.4 ML SQ SCH (08:47)
[2020-03-11] MEDS: acetaZOLAMIDE 250 MG TAB PO SCH (08:47)
[2020-03-11] MEDS: BUPROPION HCL XL 150 MG TAB PO SCH (08:47)
[2020-03-11] MEDS: CALCIUM CARB 500MG/VIT D 200 IU TAB PO SCH (08:47)
[2020-03-11] MEDS: NICOTINE 21 MG/PAT TD SCH (08:47)
[2020-03-11] MEDS: predniSONE 20 MG TAB PO SCH (08:48)
[2020-03-11 12:10] VITALS: BP 134/78; TEMP 98.2
--- NOTE | 2020-03-11 13:39 | P.PN ---
Subjective Date of Service: 03/11/20 Primary Care Provider: Dr. Drake Chief Complaint: Acute on chronic respiratory failure, COPD exacerbation Subjective: Improving (Patient is doing much better on BiPAP has been setup) Review of Systems General: Weakness Respiratory: Shortness of Breath Physical Examination - Vital Signs Temperature: 98.2 F Blood Pressure: 134/78 Pulse: 75 Respirations: 20 Pulse Ox (%): 93 - Physical Exam General: Alert, In no apparent distress, Oriented x3 Respiratory: Expiratory wheezes Cardiovascular: No edema, Normal S1 S2 - Studies Medications List Reviewed: Yes Assessment & Plan - Problems (Diagnosis) (1) Respiratory failure with hypoxia and hypercapnia Current Visit: Yes Status: Acute Plan: Patient is doing much better stable for discharge continue with the noninvasive ventilator at home also benefit from trilogy low-dose prednisone continue with Diamox telephone visit follow-up in 2 weeks oxygenation stable Qualifiers: Chronicity: chronic Qualified Code(s): J96.11 - Chronic respiratory failure with hypoxia; J96.12 - Chronic respiratory failure with hypercapnia Physician Review Additional Text: Assessment Acute on chronic respiratory failure with hypoxia and hypercapnia on chronic home oxygen therapy COPD exacerbation Chronic diastolic heart failure Tobacco abuse Alcohol abuse Hypertension Anxiety History of breast cancer Plan Acute on chronic respiratory failure with hypoxia and hypercapnia on chronic home oxygen therapy: Patient has improved. Case discussed at length with pulmonology. Pulmonology to make arrangements for noninvasive ventilator. Continue COPD treatment. Pulmonology to further adjust. Will discuss with psych social worker to help in this process. Anticipate discharge in the next 48 hr. COPD exacerbation: Continue with above. Will obtain and continue patient's home medication. Chronic diastolic heart failure: Will obtain echocardiogram. Will continue patient's home medications. Tobacco abuse: Counseled on need for tobacco cessation. Will continue with medical management as necessary. Alcohol abuse: Counseled on need for alcohol cessation. Will continue with medical management as necessary. Hypertension: Will obtain and continue patient's home medications. Anxiety: Will obtain and continue patient on medication. History of breast cancer: The patient is status post right mastectomy.
== END 2020-03-11 14:04 | disposition home health service (06) | DRG 190 ==
LOC: ER 11:14 → ERHOLD 12:36 → 2ND 12:55
PROVIDERS: ADMIT Family Medicine; ATTEND Family Medicine
DX: J44.1 Chronic obstructive pulmonary disease with (acute) exacerbation (principal); J96.21 Acute and chronic respiratory failure with hypoxia; J96.22 Acute and chronic respiratory failure with hypercapnia; I50.32 Chronic diastolic (congestive) heart failure; I11.0 Hypertensive heart disease with heart failure; F17.210 Nicotine dependence, cigarettes, uncomplicated; F10.10 Alcohol abuse, uncomplicated; F41.9 Anxiety disorder, unspecified; Z85.3 Personal history of malignant neoplasm of breast; Z88.0 Allergy status to penicillin; Z99.81 Dependence on supplemental oxygen; Z90.11 Acquired absence of right breast and nipple; Z79.01 Long term (current) use of anticoagulants; Z60.2 Problems related to living alone; Z79.52 Long term (current) use of systemic steroids; Z79.899 Other long term (current) drug therapy; Z20.828 Contact with and (suspected) exposure to other viral communicable diseases
CPT/HCPCS: 36415; 71045; 80048; 80076; 82805; 83735; 83880; 84145; 84484; 85025; 87040; 93005; 93306; 94660; 94760; 96365; 96375; 99285; J1100; J1650; J2920; J2930; J7030; J7512; J7605; U0002

== ENCOUNTER 2020-03-12 02:01 | Inpatient (IN) | payer MEDICARE, OTHER ==
[2020-03-12] MEDS ORDERED: LEVALBUTEROL 1.25 MG/3 ML NEB ONE (02:26)
[2020-03-12 02:50] LABS: Protime INR 0.84
[2020-03-12 03:04] LABS: Absolute Lymphocytes (CBC) 1.9 K/uL (0.7-4.9); Basophils % 0.4 % (0-1.3); Hematocrit 41.8 % (36.0-45.0); Lymphocytes % 11.6 % (15.3-44.8); MPV 7.7 fL (7.6-11.3); RBC Red Blood Cell Count 4.41 M/uL (3.86-4.86)
[2020-03-12 03:10] LABS: ALT/SGPT 38 U/L (12-78); AST/SGOT 17 U/L (15-37); Albumin 3.4 g/dL (3.4-5.0); Alkaline Phosphatase 48 U/L (45-117); Amylase 43 U/L (25-115); BUN Blood Urea Nitrogen 22 mg/dL (7-18); Bicarbonate 32 mmol/L (21-32); Bilirubin Direct < 0.1 mg/dL (0-0.2); Bilirubin Total 0.2 mg/dL (0.2-1.0); CKMB Creatine Kinase MB 1.2 ng/mL (0.3-3.6); Creatine Phosphokinase 22 U/L (26-192); Glucose Level 116 mg/dL (74-106); Lipase 90 U/L (73-393); Potassium 3.5 mmol/L (3.5-5.1); Protein, Total 6.9 g/dL (6.4-8.2); Sodium Level 143 mmol/L (136-145)
[2020-03-12 03:28] LABS: Blood Morphology Comment NOT SEEN (NOT SEEN); Platelet Estimate ADEQ
--- NOTE | 2020-03-12 04:03 | EDPHYS ---
Physician Documentation [facility] Name: Mariana Turner Age: 65 yrs Sex: Female : 1955 Arrival Date: 03/12/2020 Time: 02:03 Bed 30 Private MD: ED Physician Demetrius Smith HPI: 03/12 06:45 This 65 yrs old Female presents to ER via EMS with complaints of Shortness Of tw4 Breath, Palpitations. 06:45 The patient has shortness of breath at rest. Onset: The symptoms/episode began/occurred tw4 last week. Duration: The symptoms are continuous, and are steadily getting worse. The patient's shortness of breath is aggravated by exertion, is alleviated by application of supplemental oxygen. Associated signs and symptoms: Pertinent positives: non-productive cough. Severity of symptoms: At their worst the symptoms were moderate in the emergency department the symptoms are unchanged. The patient has not experienced similar symptoms in the past. 06:50 The patient has been recently seen at the [facility] Emergency tw4 Department. Historical: - Allergies: 02:12 PENICILLINS; rv - PMHx: 02:12 Anxiety; Cancer, Breast; CHF; COPD; rv - PSHx: 02:12 Mastectomy, Right; rv - Immunization history:: Adult Immunizations up to date. - Social history:: Smoking status: Patient reports the use of cigarette tobacco products, smokes one pack cigarettes per day. ROS: 06:45 Constitutional: Negative for fever, chills, and weight loss, Eyes: Negative for injury, tw4 pain, redness, and discharge, Cardiovascular: Negative for chest pain, palpitations, and edema, Abdomen/GI: Negative for abdominal pain, nausea, vomiting, diarrhea, and constipation, Back: Negative for injury and pain, MS/Extremity: Negative for injury and deformity, Skin: Negative for injury, rash, and discoloration, Neuro: Negative for headache, weakness, numbness, tingling, and seizure. 06:45 Respiratory: Positive for shortness of breath, Negative for cough, dyspnea on exertion, hemoptysis, orthopnea, pleurisy. Exam: 06:45 Constitutional: This is a well developed, well nourished patient who is awake, alert, tw4 and in no acute distress. Head/Face: Normocephalic, atraumatic. Chest/axilla: Normal chest wall appearance and motion. Nontender with no deformity. No lesions are appreciated. Cardiovascular: Regular rate and rhythm with a normal S1 and S2. No gallops, murmurs, or rubs. Normal PMI, no JVD. No pulse deficits. Abdomen/GI: Soft, non-tender, with normal bowel sounds. No distension or tympany. No guarding or rebound. No evidence of tenderness throughout. Back: No spinal tenderness. No costovertebral tenderness. Full range of motion. Skin: Warm, dry with normal turgor. Normal color with no rashes, no lesions, and no evidence of cellulitis. 06:45 Respiratory: mild respiratory distress is noted, Respirations: normal. Vital Signs: 02:06 BP 142 / 78; Pulse 121; Resp 23; Temp 98.4; Pulse Ox 92% on R/A; Weight 54.43 kg; rv Height 5 ft. 3 in. (160.02 cm); Pain 0/10; 02:06 Pulse Ox 99% on 4 lpm NC; rv 02:25 BP 143 / 74; Pulse 136; Resp 38; Pulse Ox 85% on 10% Non-rebreather mask; rr5 03:00 BP 131 / 65; Pulse 122; Resp 28; Pulse Ox 99% on 3 lpm NC; rr5 04:00 BP 132 / 76; Pulse 105; Resp 20; Pulse Ox 96% on 3 lpm NC; rr5 05:04 BP 128 / 75; Pulse 103; Resp 15; Temp 98.5; Pulse Ox 96% on 4 lpm NC; rv 02:06 Body Mass Index 21.26 (54.43 kg, 160.02 cm) rv MDM: 02:06 Patient medically screened. tw4 06:45 Differential diagnosis: Anemia reactive airway disease, Sepsis. Antibiotic tw4 administration: Not indicated. Data reviewed: vital signs, nurses notes. Data interpreted: Pulse oximetry: Interpretation: normal. Counseling: I had a detailed discussion with the patient and/or guardian regarding: the historical points, exam findings, and any diagnostic results supporting the discharge/admit diagnosis. Physician consultation: Jazzy Baez MD regarding admission, and will see patient in ED. Special discussion: I discussed with the patient/guardian in detail that at this point there is no indication for admission to the hospital. It is understood, however, that if the symptoms persist or worsen the patient needs to return immediately for re-evaluation. 06:49 Medication response: albuterol nebulizer treatment(s) markedly relieved the patient's tw4 wheezing. Response to treatment: the patient's symptoms have mildly improved after treatment, and as a result, I will admit patient. 06:49 Counseling: I had a detailed discussion with the patient and/or guardian regarding: tw4 smoking cessation. 03/12 02:11 Order name: Amylase, Serum tw 03/12 02:11 Order name: Basic Metabolic Panel [facility] 03/12 02:11 Order name: Blood Culture Adult (2) tw 03/12 02:11 Order name: CBC with Diff tw 03/12 02:11 Order name: Ckmb [facility] 03/12 02:11 Order name: CPK [facility] 03/12 02:11 Order name: Lactate [facility] 03/12 02:11 Order name: LFT's [facility] 03/12 02:11 Order name: Lipase [facility] 03/12 02:11 Order name: Procalcitonin tw 03/12 02:11 Order name: Protime (+inr) tw 03/12 02:11 Order name: Ptt, Activated tw 03/12 02:11 Order name: Troponin (emerg Dept Use Only) tw 03/12 02:11 Order name: Urine Microscopic Only [facility] 03/12 02:11 Order name: Chest Single View XRAY [facility] 03/12 02:12 Order name: Amylase [facility] 03/12 02:13 Order name: Basic Metabolic Panel [facility] 03/12 02:13 Order name: Blood Culture [facility] 03/12 02:13 Order name: CBC with Automated Diff [facility] 03/12 02:13 Order name: CKMB Creatine Kinase [facility] 03/12 02:13 Order name: Creatine Phosphokinase [facility] 03/12 02:14 Order name: Lactate [facility] 03/12 02:14 Order name: Liver (Hepatic) Function [facility] 03/12 03:28 Order name: Manual Differential [facility] 03/12 03:39 Order name: ABG sg 03/12 04:42 Order name: CONS Pharmacy Consult [facility] 03/12 04:42 Order name: Full Liquid [facility] 03/12 02:11 Order name: Accucheck; Complete Time: 02:16 03/12 02:11 Order name: Cardiac monitoring; Complete Time: 02:16 03/12 02:11 Order name: EKG - Nurse/Tech; Complete Time: 02:16 03/12 02:11 Order name: IV Saline Lock - Large Bore; Complete Time: 02:16 03/12 02:11 Order name: Labs collected and sent; Complete Time: 02:16 03/12 02:11 Order name: O2 Per Protocol; Complete Time: 02:03/12 02:11 Order name: O2 Sat Monitoring; Complete Time: 02:16 EC:53 Rate is 144 beats/min. Rhythm is regular, Sinus tachycardia. QRS [place] is Normal. [place] tw4 interval is normal. QRS interval is normal. QT interval is normal. No Q waves. T waves are Normal. No ST changes noted. Clinical impression: Sinus tachycardia. Interpreted by me. Reviewed by me. Administered Medications: 02:15 CANCELLED (Inappropriate at this time): NS 0.9% (30 ml/kg) 30 ml/kg IV at bolus once; Sepsis Protocol 02:23 Not Given (Physician Discretion): DuoNeb (3:1) (2.5 mg - 0.5 mg) 3 ml Nebulizer once rv 02:23 Drug: Xopenex (3) 1.25 mg Route: Inhalation; rv 04:40 Follow up: Response: Marked relief of symptoms rv Disposition: 03/12/20 04:02 Hospitalization ordered by Jazzy Baez for Inpatient Admission. Preliminary diagnosis is Chronic obstructive pulmonary disease with (acute) exacerbation. - Bed requested for Telemetry/MedSurg (Inpatient). - Status is Inpatient Admission. rv - Condition is Stable. - Problem is an ongoing problem. - Symptoms are unchanged. Signatures: Dispatcher [employer] EDMS Genoveva Leon RN RN mw Wadley, Terrence, MD MD Josafat Santoro RN RN rv Corrections: (The following items were deleted from the chart) 02:15 02:11 NS 0.9% (30 ml/kg) 30 ml/kg IV at bolus once; Sepsis Protocol ordered. 04:29 04:02 Hospitalization Ordered by Jazzy Baez MD for Inpatient Admission. Preliminary mw diagnosis is Chronic obstructive pulmonary disease with (acute) exacerbation. Bed requested for Telemetry/MedSurg (Inpatient). Status is Inpatient Admission. Condition is Stable. Problem is an ongoing problem. Symptoms are unchanged. tw4 04:53 04:29 03/12/2020 04:02 Hospitalization Ordered by Jazzy Baez MD for Inpatient mw Admission. Preliminary diagnosis is Chronic obstructive pulmonary disease with (acute) exacerbation. Bed requested for Telemetry/MedSurg (Inpatient). Status is Inpatient Admission. Condition is Stable. Problem is an ongoing problem. Symptoms are unchanged. mw 05:06 04:53 03/12/2020 04:02 Hospitalization Ordered by Jazzy Baez MD for Inpatient rv Admission. Preliminary diagnosis is Chronic obstructive pulmonary disease with (acute) exacerbation. Bed requested for Telemetry/MedSurg (Inpatient). Status is Inpatient Admission. Condition is Stable. Problem is an ongoing problem. Symptoms are unchanged. mw
--- NOTE | 2020-03-12 04:03 | ER ---
Nurse's Notes [facility] Name: Mariana Turner Age: 65 yrs Sex: Female : 1955 Arrival Date: 03/12/2020 Time: 02:03 Bed 30 Private MD: Diagnosis: Chronic obstructive pulmonary disease with (acute) exacerbation Presentation: 03/12 02:06 Chief complaint: Patient states: "I JUST GOT DISCHARGED TODAY. I WAS ON MY APAP WHEN rv THIS HAPPENED." EMS states: WITH HISTORY OF COPD. PATIENT WAS IN HER CPAP/APAP WHEN HER OXYGEN SATURATION DROPPED TO 88%. TACHYCARDIC AND TACHYPNEIC ON SCENE. PUT ON OXYGEN 4 LPM. COMPLAINING OF COUGH AND SOB. PATIENT ADMITTED HAVING 4 CIGARETTES TODAY. Coronavirus screen: Surgical mask placed on patient. Patient moved to private room, placed in contact and droplet isolation with eye protection until further assessment. Patient reports a cough. Patient reports shortness of breath or difficulty breathing. Patient denies measured and/or subjective temperature greater than 100.4F prior to today's visit. Patient denies travel on a cruise ship or to a country the [facility] currently lists as an affected area. Patient denies contact with known and/or suspected case of COVID-19. Prior COVID test collected on: 03/08/2020. Ebola Screen: No symptoms or risks identified at this time. Initial Sepsis Screen: Does the patient meet any 2 criteria? RR > 20 per min. HR > 90 bpm. Does the patient have a suspected source of infection? Yes: Productive cough/pneumonia If YES to both, name of provider notified: Demetrius Smith MD Risk Assessment: Do you want to hurt yourself or someone else? Patient reports no desire to harm self or others. Onset of symptoms is unknown. 02:06 Method Of Arrival: EMS: [facility] rv 02:06 Acuity: ANDRADE 3 rv Triage Assessment: 02:13 General: Appears uncomfortable, Behavior is calm, cooperative. Pain: Denies pain. EENT: rv No signs and/or symptoms were reported regarding the EENT system. Neuro: Level of Consciousness is awake, alert, obeys commands, Oriented to person, place, time, situation. Cardiovascular: Patient's skin is warm and dry. Rhythm is sinus tachycardia. Respiratory: Reports shortness of breath at rest Airway is patent Respiratory effort is labored, Respiratory pattern is tachypnea Breath sounds are coarse in left posterior lower lobe Onset: The symptoms/episode began/occurred today, the patient has mild shortness of breath. Derm: Skin is intact. Historical: - Allergies: 02:12 PENICILLINS; rv - PMHx: 02:12 Anxiety; Cancer, Breast; CHF; COPD; rv - PSHx: 02:12 Mastectomy, Right; rv - Immunization history:: Adult Immunizations up to date. - Social history:: Smoking status: Patient reports the use of cigarette tobacco products, smokes one pack cigarettes per day. Screenin:14 Abuse screen: Denies threats or abuse. Denies injuries from another. Nutritional rv screening: No deficits noted. Tuberculosis screening: No symptoms or risk factors identified. Fall Risk None identified. Assessment: 02:25 Reassessment: Reassessment: xray staff at bedside performing portable xray. patient rr5 complaining that she is about ot faint, having difficulty of breathing, pale looking, RR 38 cpm, oxygen saturation 85%,. ED provider aware with order made and carried out. RT informed. 02:33 Reassessment: Reassessment: spoke with Genoveva with lab who reports the COVID results sg are not yet back at this time, notified, the pt to remain on droplet precautions. 02:50 Reassessment: RT at bedside with pt coaching with pursed lip breathing, pt tolerating sg well. pt currently does not want to be placed onto BiPap at this time, reports causes anxiety being on BiPap, at bedside educating pt on need for BiPap at this time and dangers of antianxiety medications due to their effect on respiratory rate, pt stated understanding. 03:21 Reassessment: pt appears more calm, tolerating O2 via 3 lpm NC at this time, RR to be sg 20bpm at this time, pt requesting a warm blanket and would like to go sleep, warm blanket provided RT remains at bedside at this time. 04:11 Reassessment: Patient appears in no apparent distress at this time. resting eyes closed rr5 breathing spontaneously with oxygen support at 3 liter via nasal cannula. fro admission. Patient states symptoms have improved. Vital Signs: 02:06 BP 142 / 78; Pulse 121; Resp 23; Temp 98.4; Pulse Ox 92% on R/A; Weight 54.43 kg; rv Height 5 ft. 3 in. (160.02 cm); Pain 0/10; 02:06 Pulse Ox 99% on 4 lpm NC; rv 02:25 BP 143 / 74; Pulse 136; Resp 38; Pulse Ox 85% on 10% Non-rebreather mask; rr5 03:00 BP 131 / 65; Pulse 122; Resp 28; Pulse Ox 99% on 3 lpm NC; rr5 04:00 BP 132 / 76; Pulse 105; Resp 20; Pulse Ox 96% on 3 lpm NC; rr5 05:04 BP 128 / 75; Pulse 103; Resp 15; Temp 98.5; Pulse Ox 96% on 4 lpm NC; rv 02:06 Body Mass Index 21.26 (54.43 kg, 160.02 cm) rv ED Course: 02:03 Patient arrived in ED. sg 02:06 Demetrius Smith MD is Attending Physician. tw4 02:06 Josafat Santoro, KURT is Primary Nurse. rv 02:12 Triage completed. rv 02:12 Arm band placed on Patient placed in the treatment room, on a stretcher, Patient rv notified of wait time. 02:14 Patient has correct armband on for positive identification. hall monitor on. Pulse rv ox on. NIBP on. 02:30 Inserted saline lock: 20 gauge in left hand, using aseptic technique. Blood collected. rr5 02:30 First set of blood cultures drawn. rr5 03:50 EKG done, by ED staff, reviewed by Demetrius Smith MD. rr5 03:54 Chest Single View XRAY In Process Unspecified. EDMS 04:02 Jazzy Baez MD is Hospitalizing Provider. tw4 05:04 No provider procedures requiring assistance completed. IV is patent, with fluids rv infusing freely, with good blood return, Patient admitted, IV remains in place. Administered Medications: 02:15 CANCELLED (Inappropriate at this time): NS 0.9% (30 ml/kg) 30 ml/kg IV at bolus once; tw4 Sepsis Protocol 02:23 Not Given (Physician Discretion): DuoNeb (3:1) (2.5 mg - 0.5 mg) 3 ml Nebulizer once rv 02:23 Drug: Xopenex (3) 1.25 mg Route: Inhalation; rv 04:40 Follow up: Response: Marked relief of symptoms rv Outcome: 04:02 Decision to Hospitalize by Provider. tw4 05:05 Admitted to Tele accompanied by tech, via wheelchair, room 415, Report called to LENNY vera RN 05:05 Condition: good 05:05 Instructed on the need for admit, Demonstrated understanding of instructions. 05:06 Patient left the ED. rv Signatures: Dispatcher [employer] EDMS Nabor Brewster RN RN Demetrius Smith MD MD tw4 Josafat Santoro RN RN Alex Jerez RN RN rr5 Corrections: (The following items were deleted from the chart) 02:13 02:06 Chief complaint: Patient states: "I JUST GOT DISCHARGED TODAY. I WAS ON MY APAP rv WHEN THIS HAPPENED." EMS states: WITH HISTORY OF COPD. PATIENT WAS IN HER CPAP/APAP WHEN HER OXYGEN SATURATION DROPPED TO 88%. TACHYCARDIC AND TACHYPNEIC ON SCENE. PUT ON OXYGEN 4 LPM. COMPLAINING OF COUGH AND SOB. rv 02:37 02:33 Reassessment: [facility] 02:47 02:06 Coronavirus screen: Surgical mask placed on patient. Patient moved to private rv room, placed in contact and droplet isolation with eye protection until further assessment. Patient reports a cough. Patient reports shortness of breath or difficulty breathing. Patient denies measured and/or subjective temperature greater than 100.4F prior to today's visit. Patient denies travel on a cruise ship or to a country the [facility] currently lists as an affected area. Patient denies contact with known and/or suspected case of COVID-19. Prior COVID test collected on: 03/08/2020 rv 04:09 02:48 Reassessment: rv rr5
[2020-03-12 04:26] LABS: Blood Gas Oxyhemoglobin 89.8 % (94-97)
[2020-03-12 04:27] LABS: Arterial Blood Carboxyhemoglob 4.5 % (0-1.5); Blood Gas RHB 13.8 %
[2020-03-12] MEDS ORDERED: ACETAMINOPHEN 500 MG TAB PO PRN (04:38)
[2020-03-12] MEDS ORDERED: MORPHINE 2 MG/ML SYR IV PRN (04:38)
[2020-03-12] MEDS ORDERED: ALBUTEROL 2.5 MG/3 ML NEB SOL NEB PRN (04:38)
[2020-03-12] MEDS ORDERED: ONDANSETRON 4 MG/2 ML VIAL IV PRN (04:38)
[2020-03-12] MEDS ORDERED: NA CHLORIDE 0.9% 1,000 ML IV SCH (05:00)
[2020-03-12] MEDS ORDERED: Levofloxacin500mg IV 500 MG/100 ML BAG IV SCH (05:30)
[2020-03-12] MEDS ORDERED: METHYLPREDNISOLONE 125 MG INJ IV SCH (06:00)
[2020-03-12 07:05] VITALS: BMI 21.9
--- NOTE | 2020-03-12 07:41 | RAD REPORT ---
EXAM DESCRIPTION: RAD - Chest Single View - 03/12/2020 3:54 am CLINICAL HISTORY: DYSPNEA COMPARISON: Portable March 08 TECHNIQUE: AP portable chest image was obtained 03/12/2020 3:54 am . FINDINGS: No new mass or infiltrate in the lung parenchyma. Underlying COPD changes are evident. Elena gical clips overlie the right-side of the chest from mastectomy. Heart and vasculature are normal. No measurable pleural effusion and no pneumothorax. No acute bony abnormality seen. No acute aortic fin dings suspected. IMPRESSION: No acute cardiopulmonary process. No new or progressive finding from March 08.
[2020-03-12] MEDS ORDERED: ALBUTEROL INHALER 60 PUFF/8 GM IH PRN (07:42)
[2020-03-12] MEDS ORDERED: IPRATROPIUM BROM 0.5MG/2.5ML IH PRN (07:44)
[2020-03-12] MEDS ORDERED: IPRATROPIUM BROM 0.5MG/2.5ML NEB SCH (08:00)
[2020-03-12] MEDS ORDERED: XOPENEX IH PRN (08:00)
[2020-03-12] MEDS: NICOTINE 21 MG/PAT TD SCH (08:13)
[2020-03-12] MEDS: acetaZOLAMIDE 250 MG TAB PO SCH (08:15)
[2020-03-12] MEDS: predniSONE 20 MG TAB PO SCH ×2 (08:15→20:47)
[2020-03-12] MEDS: BUPROPION HCL XL 150 MG TAB PO SCH (08:15)
[2020-03-12] MEDS: CALCIUM CARB 500MG/VIT D 200 IU TAB PO SCH (08:15)
[2020-03-12] MEDS: ALPRAZOLAM 0.5 MG TABLET PO PRN ×2 (08:18→21:46)
[2020-03-12] MEDS ORDERED: TRELEGY ELLIPTA IH SCH (09:00)
[2020-03-12] MEDS ORDERED: VITAMIN D3 PO SCH (09:00)
[2020-03-12] MEDS ORDERED: CALCIUM CARBONATE PO SCH (09:00)
[2020-03-12] MEDS ORDERED: DULERA 100/5 (MOMETASONE/FORMOTEROL) INHALER IH SCH (09:00)
--- NOTE | 2020-03-12 10:47 | P.HP ---
Certification for Inpatient Patient admitted to: Inpatient With expected LOS: >2 Midnights Patient will require the following post-hospital care: None Practitioner: I am a practitioner with admitting privileges, knowledge of patient current condition, hospital course, and medical plan of care. Services: Services provided to patient in accordance with Admission requirements found in Title 42 Section 412.3 of the Code of Federal Regulations Patient History Date of Service: 03/12/20 Reason for admission: Hypercapnic respiratory failure History of Present Illness: Patient is a 65-year-old female was admitted to the hospital with difficulty breathing. Patient was recently discharged this morning. She had been doing well; however, while she was at home noticed that her O2 saturations had gone down to 60% on her CPAP. She was getting more short of breath and felt like she was having a panic attack so she called EMS. When they arrived her sats were still in the low 80 percentile on oxygen. She states she had on a mask which I am assuming was a non-rebreather. Patient came into the emergency room for further evaluation. In the emergency room patient was hypercapnic with a pH of 7.28. Patient had been on acetazolamide. Her pCO2 was below her levels that she was discharge staff. However, her bicarb had gone down as well. Decision was made to admit the patient to the hospital for further evaluation. Allergies Penicillins Allergy (Verified 03/12/20 06:12) Rash Home Medications: Bupropion *Xl* [Wellbutrin XL*] 1 tab PO DAILY 03/08/20 Calcium Carbonate/Vitamin D3 [Calcium 500-Vit D3 10 Mcg Chew] 1 tab PO DAILY 03/08/20 Ipratropium [place] 1 inh IH Q6H PRN 03/08/20 Levalbuterol [Xopenex*] 1 inh IH Q6H PRN 03/08/20 Sodium Chloride For Inhalation [Hyper-Cristian] 3 ml IH Q6H PRN 03/08/20 Fluticasone/Umeclidin/Vilanter [Trelegy Ellipta 100-62.5-25] 1 each IH DAILY 30 Days #30 blst.w.dev 03/09/20 Nicotine [Nicoderm*] 21 mg TD DAILY #30 patch.td24 03/10/20 acetaZOLAMIDE [Diamox*] 250 mg PO DAILY #30 tab 03/10/20 - Past Medical/Surgical History Has patient received pneumonia vaccine in the past: Yes Diabetic: No -: COPD -: Hypertension -: CHF likely diastolic -: Depression with anxiety -: Tobacco abuse -: Alcohol abuse -: Right mastectomy Psychosocial/ Personal History: Patient lives at home alone, patient does have home health - Family History Mother Medical History: Cancer Notes: breast Father Medical History: Lung disease Notes: asbestosis - Social History Smoking Status: Current every day smoker Alcohol use: Yes CD- Drugs: No Caffeine use: Yes Place of Residence: Home Review of Systems 10-point ROS is otherwise unremarkable Physical Examination - Vital Signs Temperature: 98.7 F Blood Pressure: 133/69 Pulse: 104 Respirations: 20 Pulse Ox (%): 98 - Physical Exam General: Alert, In no apparent distress, Oriented x3 HEENT: Atraumatic, PERRLA, Mucous membr. moist/pink, EOMI, Sclerae nonicteric Neck: Supple, 2+ carotid pulse no bruit, No LAD, Without JVD or thyroid abnormality Respiratory: Diminished, Expiratory wheezes Cardiovascular: Regular rate/rhythm, Normal S1 S2, No murmurs Gastrointestinal: Normal bowel sounds, Soft and benign, Non-distended, No tenderness Musculoskeletal: No clubbing, No swelling, No tenderness Integumentary: No rashes Neurological: Normal gait, Normal speech, Normal strength at 5/5 x4 extr, Normal tone, Sensation intact, Cranial nerves 3-12 intact, Normal affect Lymphatics: No axilla or inguinal lymphadenopathy - Studies Laboratory Data (last 24 hrs) 03/12/20 02:17: PT 9.9, INR 0.84, APTT 24.0 L 03/12/20 02:17: WBC 16.8 H D, Hgb 13.6, Hct 41.8, Plt Count 345 03/12/20 02:17: Sodium 143, Potassium 3.5, BUN 22 H, Creatinine 0.74, Glucose 116 H, Total Bilirubin 0.2, AST 17, ALT 38, Alkaline Phosphatase 48, Amylase 43, Lipase 90 Microbiology Data (last 24 hrs): 03/12/20 02:28 Blood - Blood Anaerobic Blood Culture - Final Assessment & Plan - Problems (Diagnosis) (1) Respiratory failure with hypoxia and hypercapnia Current Visit: No Status: Acute Qualifiers: Chronicity: chronic Qualified Code(s): J96.11 - Chronic respiratory failure with hypoxia; J96.12 - Chronic respiratory failure with hypercapnia (2) Leukocytosis Current Visit: Yes Status: Acute (3) Anxiety disorder Current Visit: Yes Status: Acute - Plan Plan: 1. Continue with inhaler therapy 2. Continue with steroid therapy 3. CPAP this evening 4. Pulmonary consultation 5. Out of bed and ambulate 6. Monitor hemodynamics and saturations 7. GI and DVT prophylaxis Discharge Plan: Home Plan to discharge in: Greater than 2 days - Advance Directives Does patient have a Living Will: No Does patient have a Durable POA for Healthcare: No - Code Status/Comfort Care Code Status Assessed: Yes Code Status: Full Code Critical Care: No Time Spent Managing PTS Care (In Minutes): 45
[2020-03-12] MEDS: IPRATROPIUM BROM 0.5MG/2.5ML IH PRN ×2 (11:54→18:22)
--- OUTSIDE RECORDS SUMMARY | 2020-03-12 13:41 | XMS REPORT | Continuity of Care Document ---
:1955 Author Organization [facility] t Address [address] [place] [address] Care Team Providers Name Role Phone Bg HICKS, E Attending Clinician Problems This patient has no known problems. Allergies, Adverse Reactions, Alerts This patient has no known allergies or adverse reactions. Medications This patient has no known medications. Procedures This patient has no known procedures. Encounters Start End Encounter Admission Attending Care Care Encounter Source Date/Time Date/Time Type Type Clinicians Facility Department ID 2020-03-10 2020-03-10 Patient Manda Pederson [id number] 00:00:00 00:00:00 Outreach E Rk [id number] Simone [id number] Results This patient has no known results.
--- OUTSIDE RECORDS SUMMARY | 2020-03-12 13:41 | XMS REPORT | Summary of Care ---
:1955 Author Organization [address] [address] Care Team Providers Name Role Phone MD Epifanio Unavailable Royal Pederson RNvessel builder Gianni Valenzuela ADJUNCT SPANISH INSTRUCTOR Counselor Aid Unavailable Cherise Dietrich MD Primary Care Provider Reason for Visit Reason Comments Social Work Encounter Details Date Type Department Care Team Description 12/22/2019 Patient Outreach [facility] Ned Valenzuela, ADJUNCT SPANISH INSTRUCTOR Social Work Network[address] [address] Allergies Active Allergy Reactions Severity Noted Date Comments Penicillins Rash 10/05/2016 documented as of this encounter (statuses as of 12/22/2019) Medications Medication Sig Dispensed Refills Start Date End Date Status anastrozole 1 mg Take 1 tablet by 90 tablet 4 02/12/2017 Active tablet mouth daily. calcium-vitamin D 500 Take 1 tablet by 30 tablet 2 04/11/2017 Active mg(1,250mg) -200 unit mouth daily. per tablet Nicotine 21-14-7 mg/24 Use 21 for 30 days 60 Patch 1 04/11/20 17 Active hr PTDS and 14 for next 30 days fluticasone Inhale 200 mcg 30 Each 3 06/09/2019 Ac tive furoate-vilanterol daily. (BREO ELLIPTA) 200-25 mcg/dose DsDvIndications: Pulmonary emphysema, unspecified emphysema type, Chronic obstructive pulmonary disease, unspecified COPD type budesonide 0.5 mg/2 mL Inhale 2 mL 2 100 Vial 3 08/14/2019 Active nebulizer (two) times daily. solutionIndications: Pulmonary emphysema, unspecified emphysema type, Hypoxia predniSONE 10 mg 4 tablets po daily 20 tablet 0 10/07/2019 Active tabletIndications: for 2 days, then 3 COPD exacerbation tablets po daily for 2 days, then 2 tablets po daily for 2 days, then 1 tablets po daily for 2 days, then stop levalbuterol 0.63 mg/3 Inhale 0.63 mg 30 Vial 2 10/07/2019 Active mL nebulizer every 6 (six) solutionIndications: hours as needed COPD exacerbation for Wheezing or Shortness of Breath. ipratropium 0.02 % Inhale 2.5 mL 30 Vial 2 10/07/2019 Active nebulizer every 6 (six) solutionIndications: hours as needed COPD exacerbation for Wheezing or Shortness of Breath. documented as of this encounter (statuses as of 12/22/2019) Active Problems Problem Noted Date Sinus tachycardia 10/06/2019 Anxiety about health 03/29/2017 Breast cancer 12/10/2016 Mass of breast, right 10/06/2016 COPD exacerbation 10/05/2016 Tobacco abuse 10/05/2016 Alcohol abuse 10/05/2016 Contact dermatitis and other eczema due to plants (exc ept food) Overview: poison mandy Breast cancer, right breast documented as of this encounter (statuses as of 12/22/2019) Immunizations Name Administration Dates Next Due Influenza Virus Vaccine Quad .5 mL IM 6+ MO 10/07/2019 Influenza Virus Vaccine Quad IM 3+ YRS 10/10/2016 Pneumococcal Polysaccharide, PPSV23 (PNEUMOVAX) 10/10/2016 documented as of this encounter Social History Tobacco Use Types Packs/Day Years Used Date Current Every Day Smoker Cigarettes 1 40 Smokeless Tobacco: Never Used Comments: 1/2 pack of cigarettes daily Alcohol Use Drinks/Week oz/Week Comments Yes 25 Standard drinks or equivalent 25.0 2 oz etoh 2x a week Financial Resource Strain Answer Date Recorded How hard is it for you to pay for the very basics like Somew hat hard 10/05/2019 food, housing, medical care, and heating? Food Insecurity Answer Date Recorded Within the past 12 months, you worried that your food would Never true 10/05/2019 run out before you got money to buy more. Within the past 12 months, the food you bought just didn't N ever true 10/05/2019 last and you didn't have money to get more. Transportation Needs Answer Date Recorded In the past 12 months, has lack of transportation kept you f rom Yes 10/05/2019 medical appointments or from getting medications? In the past 12 months, has lack of transportation kept you f rom Yes 10/05/2019 meetings, work, or getting things needed for daily living? Sex Assigned at Date Recorded Not on file Job Start Date Occupation Industry Not on file Not on file Not on file Travel History Travel Start Travel End No recent travel history available. documented as of this encounter Last Filed Vital Signs Not on filedocumented in this encounter Progress Notes Beau Valenzuela MSW - 12/22/2019 11:27 AM CDTSocial Worker Note: ENVIRONMENT FRIENDLY LANDSCAPE DESIGNER spoke with patient regarding her current situation in the midst of COVID-19. Patient stated that she was doing well and quarantined currently. Patient stated she has a caregiver assisting her and food available. Patient stated that she appreciates the phone call and will follow-up with ENVIRONMENT FRIENDLY LANDSCAPE DESIGNER if she needs anything. Beau Valenzuela LMSW [facility] Ph. documented in this encounter Plan of Treatment Date Type Specialty Care Team Description 01/01/2020 Office Visit Pulmonary Disease Bronwyn Don DO [address] [place] [address] Health Maintenance Due Date Last Done Comments HEPATITIS C (HCV) SCREEN 1955 DTaP,Tdap,and Td Vaccines (1 - Tdap) 02/04/1968 PAP SMEAR 1978 COLONOSCOPY 2007 Zoster Recombinant Vaccine (SHINGRIX) (1 2007 of 2) LUNG CANCER SCREEN: Recommended for age 0110/06/2017 10/06/19 17 55-80 with 30 + pack year history Breast Cancer Screening (MAMMOGRAM) 10/10/2017 10/10/2016, 06/17/2006 PNEUMOCOCCAL 0-64 YEARS COMBINED SERIES (2 10/10/201710/10 of 3 - PCV13) INFLUENZA VACCINE Completed 10/07/2019, 10/10/2016 documented as of this encounter Results Not on filedocumented in this encounter Insurance Payer Benefit Plan / Subscriber ID Effective Dates Phone Addre ss Type Group MANAGED MANAGED [id number] 2019-[facility] MEDICARE HMO MEDICARE HMO t HMO GENERIC GENERIC documented as of this encounter
--- OUTSIDE RECORDS SUMMARY | 2020-03-12 13:41 | XMS REPORT | Summary of Care ---
:1955 Author Organization [address] [address] Care Team Providers Name Role Phone MD Epifanio Unavailable Royal Pederson RNblueprint assembler Gianni Valenzuela CARDIOVASCULAR SONOGRAPHER Chief Cruiser Unavailable Cherise Dietrich MD Primary Care Provider Reason for Visit Reason Comments Follow-up Encounter Details Date Type Department Care Team Description 12/28/2019 Patient Outreach [facility] Ivana Paulson Follow-up [address] [address] Allergies Active Allergy Reactions Severity Noted Date Comments Penicillins Rash 10/05/2016 documented as of this encounter (statuses as of 12/28/2019) Medications Medication Sig Dispensed Refills Start Date [...] as of this encounter (statuses as of 12/28/2019) Active Problems Problem Noted Date Sinus tachycardia 10/06/2019 Anxiety about health 03/29/2017 Breast cancer 12/10/2016 Mass of breast, right 10/06/2016 COPD exacerbation 10/05/2016 Tobacco abuse 10/05/2016 Alcohol abuse 10/05/2016 Contact dermatitis and other eczema due to plants (exc ept food) Overview: poison mandy Breast cancer, right breast documented as of this encounter (statuses as of 12/28/2019) Immunizations Name Administration Dates Next Due Influenza [...] on filedocumented in this encounter Progress Notes Ivana Paulson - 12/28/2019 2:17 PM PRICETCCHErick Paulson called Ms. Turner to follow up with her and she stated she was running out of minutes and could I please just text her so I will. I texted Ms. Moctezuma and she stated she was going okay at the time and did not have medical needs at this time. I have asked Ms. Turner to please reach out to myself or ESTEVAN Pederson if she needs anything and she agreed. I will let ESTEVAN Pederson know of my phone visit and follow with Ms. Turner in the next few weeks. documented in this encounter Plan of Treatment Date Type Specialty Care Team Description 01/01/2020 Telemedicine Visit Pulmonary Disease Gerardo Don n, DO [address] [place] [address] Health Maintenance Due Date Last [...] Phone Addre ss Type Group MANAGED MANAGED [id number] 2019-[facility] MEDICARE HMO MEDICARE HMO t HMO GENERIC GENERIC documented as of this encounter
--- OUTSIDE RECORDS SUMMARY | 2020-03-12 13:41 | XMS REPORT | Summary of Care ---
:1955 Author Organization [facility] Address [address] [place] [address] Care Team Providers Name Role Phone MD Epifanio Unavailable Royal Pederson RNtoll collector Gianni Valenzuela DIRECTOR FIXED INCOME Trumpet Teacher Unavailable Cherise Dietrich MD Primary Care Provider Reason for Visit Reason Comments Forms Encounter Details Date Type Department Care Team Description 01/20/2020 Telephone [facility] Pediatric[facility] & Shanae Dietrich, Forms Adult Primary Care- Jean VASQUEZ [id number] [address] [place] [address] Allergies Active Allergy Reactions Severity Noted Date Comments Penicillins Rash 10/05/2016 documented as of this encounter (statuses as of 01/21/2020) Medications Medication Sig Dispensed Refills Start Date End Date Status anastrozole 1 mg tablet Take 1 tablet by 90 tablet 4 7 Active mouth daily. calcium-vitamin D 500 Take 1 tablet by 30 tablet 2 04/11/2017 Active mg(1,250mg) -200 unit mouth daily. per tablet fluticasone Inhale 200 mcg 30 Each 3 06/09/2019 Ac tive furoate-vilanterol daily. (BREO ELLIPTA) 200-25 mcg/dose DsDvIndications: Pulmonary emphysema, unspecified emphysema type, Chronic obstructive pulmonary disease, unspecified COPD type budesonide 0.5 mg/2 mL Inhale 2 mL 2 100 Vial 3 08/14/2019 Active nebulizer (two) times solutionIndications: daily. Pulmonary emphysema, unspecified emphysema type, Hypoxia predniSONE 10 mg 4 tablets po 20 tablet 0 10/07/2019 Active tabletIndications: COPD daily for 2 days, exacerbation then 3 tablets po daily for 2 days, then [...] exacerbation for Wheezing or Shortness of Breath. nicotine 14 mg/24 hr Apply 1 Patch to 21 Patch 0 01/01/2020 Active patchIndications: area(s) every 24 Tobacco abuse disorder (twenty-four) hours. nicotine 7 mg/24 hr Apply 1 Patch to 14 Patch 3 01/01/2020 Active patchIndications: area(s) every 24 Tobacco abuse disorder (twenty-four) hours. CHRIS ASPIRIN 325 mg Take 1 tablet by 50 tablet 0 01/01/2020 Active tabletIndications: mouth every 6 Tobacco abuse disorder, (six) hours as Stage 4 very severe needed COPD by GOLD (HEADACHE). classification predniSONE 50 mg Take 1 tablet by 5 tablet 0 01/16/2020 Active tabletIndications: COPD mouth daily. with acute exacerbation documented as of this encounter (statuses as of 01/21/2020) Active Problems Problem Noted Date Sinus tachycardia 10/06/2019 Anxiety about health 03/29/2017 Breast cancer 12/10/2016 Mass of breast, right 10/06/2016 COPD exacerbation 10/05/2016 Tobacco abuse 10/05/2016 Alcohol abuse 10/05/2016 Contact dermatitis and other eczema due to plants (exc ept food) Overview: poison mandy Breast cancer, right breast documented as of this encounter (statuses as of 01/21/2020) Immunizations Name Administration Dates Next Due Influenza [...] Travel End No recent travel history available. COVID-19 Exposure Response Date Recorded In the last month, have you been in contact with No / Unsure 01/16/2020 2:31 AM CDT someone who was confirmed or suspected to have Coronavirus / COVID-19? documented as of this encounter Last Filed Vital Signs Not on filedocumented in this encounter Plan of Treatment Date Type Specialty Care Team Description 05/06/2020 Office Visit Pulmonary Disease Bronwyn Don DO [address] [place] [address] Health Maintenance Due Date Last [...] in this encounter Insurance Payer Benefit Plan Subscriber ID Effective Phone Address Typ e / Group Dates [facility] [id number] 2019-Pres Medica re Adv HEALTHCARE - MEDICARE ent HMO MANAGED COMPLETE MEDICARE [facility] OF xxxxxxxxx 2019-Pres [phone] [address] [facility] ent [phone] [place] [address] documented as of this encounter
--- OUTSIDE RECORDS SUMMARY | 2020-03-12 13:41 | XMS REPORT | Summary of Care ---
:1955 Author Organization [facility] Address [address] [place] [address] Care Team Providers Name Role Phone MD Epifanio Unavailable Royal Pederson RNbarn and property manager Gianni Valenzuela HIGH SCHOOL COMPUTER SCIENCE TEACHER Presentation Manager Unavailable Cherise Dietrich MD Primary Care Provider Reason for Referral Radiology Services (Routine) Status Reason Specialty Diagnoses / Referred By Referred To Procedures Contact Contact New Request Diagnostic Diagnoses Malignant neoplasm of upper-outer quadrant of right breast in female, estrogen receptor positive Malignant neoplasm of right female breast, unspecified estrogen receptor status, unspecified site of breast Joan Smith MD Radiology Procedures BI DIAGNOSTIC TOMOSYNTHESIS BILATERAL [address] [id number] [place] [address] Reason for Visit Reason Comments Notification Encounter Details Date Type Department Care Team Description 01/12/2020 Telephone [facility] Cancer Joan Smith MD Notification Center-Surgical Onco logy [address] [id number] [address] [facility], [place] [address] 2.1600 [place], [place] [address] [phone] Allergies Active Allergy Reactions Severity Noted Date Comments Penicillins Rash 10/05/2016 documented as of this encounter (statuses as of 01/12/2020) Medications Medication Sig Dispensed Refills Start Date [...] severe needed COPD by GOLD (HEADACHE). classification documented as of this encounter (statuses as of 01/12/2020) Active Problems Problem Noted Date Sinus tachycardia 10/06/2019 Anxiety about health 03/29/2017 Breast cancer 12/10/2016 Mass of breast, right 10/06/2016 COPD exacerbation 10/05/2016 Tobacco abuse 10/05/2016 Alcohol abuse 10/05/2016 Contact dermatitis and other eczema due to plants (exc ept food) Overview: poison mandy Breast cancer, right breast documented as of this encounter (statuses as of 01/12/2020) Immunizations Name Administration Dates Next Due Influenza [...] Office Visit Pulmonary Disease Bronwyn Don DO [address] [place] [address] Name Type Priority Associated Diagnoses Order S chedule BI DIAGNOSTIC IMAGING Routine Malignant neoplasm of Expec lise: TOMOSYNTHESIS BILATERAL upper-outer quadr ant of 04/11/2020, Expires: right breast in female, 06/24 estrogen receptor positive Malignant neoplasm of right female breast, unspecified estrogen receptor status, unspecified site of breast Health Maintenance Due Date Last Done Comments [...] Results Not on filedocumented in this encounter Visit Diagnoses Diagnosis Malignant neoplasm of right female breas t, unspecified estrogen receptor status, unspecified site of breast - Primary Malignant neoplasm of upper-outer quadra nt of right breast in female, estrogen receptor positive documented in this encounter Insurance Payer Benefit Plan / Subscriber ID Effective Dates Phone Addre ss Type Group MANAGED MANAGED [id number] 2019-Presen Medi care Adv MEDICARE HMO MEDICARE HMO t HMO GENERIC GENERIC documented as of this encounter
--- OUTSIDE RECORDS SUMMARY | 2020-03-12 13:41 | XMS REPORT | Summary of Care ---
:1955 Author Organization [address] [address] Care Team Providers Name Role Phone MD Epifanio Unavailable Royal Pederson RNbehavioral health aide Gianni Valenzuela TAX EXAMINER Marine Rigger Unavailable Cherise Dietrich MD Primary Care Provider Reason for Visit Reason Comments Social Work Encounter Details Date Type Department Care Team Description 01/28/2020 [facility] Valenzuela, TAX EXAMINER Social Work [facility] [address] Allergies Active Allergy Reactions Severity Noted Date Comments Penicillins Rash 10/05/2016 documented as of this encounter (statuses as of 01/28/2020) Medications Medication Sig Dispensed Refills Start Date [...] as of this encounter (statuses as of 01/28/2020) Active Problems Problem Noted Date Sinus tachycardia 10/06/2019 Anxiety about health 03/29/2017 Breast cancer 12/10/2016 Mass of breast, right 10/06/2016 COPD exacerbation 10/05/2016 Tobacco abuse 10/05/2016 Alcohol abuse 10/05/2016 Contact dermatitis and other eczema due to plants (exc ept food) Overview: poison mandy Breast cancer, right breast documented as of this encounter (statuses as of 01/28/2020) Immunizations Name Administration Dates Next Due Influenza [...] encounter Progress Notes Beau Valenzuela MSW - 01/28/2020 11:14 AM CDTSocial Worker Note: VEGETABLE PICKER spoke with patient regarding ED visit on 01/15. Patient stated that she had SOB and was able to get her breathing better. Patient stated that she found black mold in her trailer. Patient stated that she has people coming over and to remove the black mold but in the meantime she is still staying in the trailer. Patient stated that she is still smoking but has lowered the number of the cigarettes a day. VEGETABLE PICKER spoke with patient regarding the current COVID-19 conditions and offered emotional support to patient. Patient stated that she still has a caregiver that comes out and helps her with her ADL's. Patient stated that she was tested for COVID and was negative. VEGETABLE PICKER will follow-up with patient regarding any needs in the future. Beau Valenzuela LMSW [facility]. documented in this encounter Plan of Treatment Date Type Specialty Care Team Description 05/06/2020 Office Visit Pulmonary Disease Bronwyn Don DO [address] [place] [address] Health Maintenance Due Date Last [...] Phone Address Typ e / Group Dates [facility] [id number] 2019-Pres Medica re Adv HEALTHCARE - MEDICARE ent HMO MANAGED COMPLETE MEDICARE [facility] MEDICAID OF xxxxxxxxx 2019-Pres [phone] [facility] ent [phone] [place] [address] documented as of this encounter
--- OUTSIDE RECORDS SUMMARY | 2020-03-12 13:41 | XMS REPORT | Summary of Care ---
:1955 Author Organization [facility] Address [address] [place] [address] Care Team Providers Name Role Phone MD Epifanio Unavailable Royal Pederson RNinterstate bus dispatcher Gianni Valenzuela PATROL SERGEANT [employer] Project Program Manager Unavailable Cherise Dietrich MD Primary Care Provider Reason for Visit Reason Comments COPD (Routine) Status Reason Specialty Diagnoses / Referred By Referred To Procedures Contact Contact New Request IM-PULMONARY Diagnoses COPD exacerbation Rafiq Tucker MD DISEASE / Procedures Discharge Follow-Up: Specialty Service IM-PULMONARY DISEASE; 2 Weeks [address] [facility] [place] [address] Encounter Details Date Type Department Care Team Description 01/01/[address] [facility] ADC Bronwyn Don Tobac co abuse disorder (Primary Dx); Pulmonary Clinic DO Stage 4 very severe COPD by GOLD classif [address] , [address] [facility] [address] [place] [address] Allergies Active Allergy Reactions Severity Noted Date Comments Penicillins Rash 10/05/2016 documented as of this encounter (statuses as of 01/01/2020) Medications Medication Sig Dispensed Refills Start Date End Date Status anastrozole 1 mg Take 1 tablet 90 tablet 4 02/12/2017 Active tablet by mouth daily. calcium-vitamin D Take 1 tablet 30 tablet 2 04/11/2017 Active 500 mg(1,250mg) -200 by mouth daily. unit per tablet fluticasone Inhale 200 mcg 30 Each 3 06/09/2019 Ac tive furoate-vilanterol daily. (BREO ELLIPTA) 200-25 mcg/dose DsDvIndications: Pulmonary emphysema, unspecified emphysema type, Chronic obstructive pulmonary disease, unspecified COPD type budesonide 0.5 mg/2 Inhale 2 mL 2 100 Vial 3 08/14/2019 Active mL nebulizer (two) times solutionIndications: daily. Pulmonary emphysema, unspecified emphysema type, Hypoxia predniSONE 10 mg 4 tablets po 20 tablet 0 10/07/2019 Active tabletIndications: daily for 2 COPD exacerbation days, then 3 tablets po daily for 2 days, then 2 tablets po daily for 2 days, then 1 tablets po daily for 2 days, then stop levalbuterol 0.63 Inhale 0.63 mg 30 Vial 2 10/07/2019 Active mg/3 mL nebulizer every 6 (six) solutionIndications: hours as needed COPD exacerbation for Wheezing or Shortness of Breath. ipratropium 0.02 % Inhale 2.5 mL 30 Vial 2 10/07/2019 Active nebulizer every 6 (six) solutionIndications: hours as needed COPD exacerbation for Wheezing or Shortness of Breath. nicotine 14 mg/24 hr Apply 1 Patch 21 Patch 0 01/01/2020 Active patchIndications: to area(s) Tobacco abuse every 24 disorder (twenty-four) hours. nicotine 7 mg/24 hr Apply 1 Patch 14 Patch 3 01/01/2020 Active patchIndications: to area(s) Tobacco abuse every 24 disorder (twenty-four) hours. CHRIS ASPIRIN 325 mg Take 1 tablet 50 tablet 0 01/01/2020 Active tabletIndications: by mouth every Tobacco abuse 6 (six) hours disorder, Stage 4 as needed very severe COPD by (HEADACHE). GOLD classification Nicotine 21-14-7 Use 21 for 30 60 Patch 1 04/11/2017 01/01/20 2 Discontinued mg/24 hr PTDS days and 14 for 0 next 30 days documented as of this encounter (statuses as of 01/01/2020) Active Problems Problem Noted Date Sinus tachycardia 10/06/2019 Anxiety about health 03/29/2017 Breast cancer 12/10/2016 Mass of breast, right 10/06/2016 COPD exacerbation 10/05/2016 Tobacco abuse 10/05/2016 Alcohol abuse 10/05/2016 Contact dermatitis and other eczema due to plants (exc ept food) Overview: poison mandy Breast cancer, right breast documented as of this encounter (statuses as of 01/01/2020) Immunizations Name Administration Dates Next Due Influenza [...] on filedocumented in this encounter Progress Notes Bronwyn Don DO - 01/01/2020 3:20 PM CDT [facility] Interventional Pulmonology Telemedicine Note Verbal consent obtained from Patient: Mariana Turner for telehealth services provided below. Communication with patient was conducted via Telephone due to patient unable to obtain video call option. Location of Patient: Home Location of Provider: Clinic Date of Service: 01/01/2020 Chief Complaint: Evaluation for COPD History of Present Illness: Mariana Turner is a 64 year old female with COPD. Patient has trouble breathing with exertion, including normal exertion. Worse with heat. Improved with rest. Past Medical History: has a past medical history of Breast cancer, right breast, Contact dermatitisand other eczema due to plants (except food), and COPD (chronic obstructive pulmonary disease). Past Surgical History: has a past surgical history that includes closed rx rib fracture (1977); discectomy (1984); tonsillectomy (age 14 ); simple mastectomy (Right, 12/10/2016); and sentinel lymph node mapping (Right, 12/10/2016). Family History: family history includes Cancer in her mother and paternal grandmother. Social History: reports that she has been smoking cigarettes. She has a 40.00 pack-year smoking history. She has never used smokeless tobacco. She reports that she drinks about 25.0 standard drinks ofalcohol per week. She reports that she does not use drugs. Review of Systems: Review of Systems Constitutional: Negative. HENT: Negative. Eyes: Negative. Respiratory: Positive for cough and shortness of breath. Cardiovascular: Negative. Gastrointestinal: Negative. Genitourinary: Negative. Musculoskeletal: Negative. Skin: Negative. Neurological: Positive for headaches. Psychiatric/Behavioral: Negative. Endocrine: Endocrine negative Physical Examination: A limited physical exam was able to be performed due to the telephone encounter Physical Exam Constitutional: She is oriented to person, place, and time. No distress. Pulmonary/Chest: No respiratory distress. Neurological: She is alert and oriented to person, place, and time. Psychiatric: Mood, memory, affect and judgment normal. Laboratory/Studies: Assessment & Plan Mariana Turner is a 64 year old female with ICD-10-CM ICD-9-CM 1. Tobacco abuse disorder Z72.0 305.1 2. Stage 4 very severe COPD by GOLD classification J44.9 496 C/w Breo, albuterol, atrovent Will consider pulm rehab next visit Nicotine patch ASA prn as albuterol gives headaches at times and ASA helps Discussed with the patient that due to their medical history they are at higher risk of complications from COVID-19 infection, hence we recommend the following: - Avoid exposure as much as possible by staying at home - Wash hands with soap and water for at least 20 seconds - Avoid touching eyes, nose and mouth with unwashed hands - Avoid close contact with people who are sick - Clean and disinfect frequently touched surfaces daily A total of 15 minutes was spent on the Telephone due to patient unable to obtain video call option with the patient. After visit summary (AVS) documentation will be available through [employer] for this encounter. documented in this encounter Plan of Treatment Health Maintenance Due Date Last Done Comments [...] filedocumented in this encounter Visit Diagnoses Diagnosis Tobacco abuse disorder - Primary Tobacco use disorder Stage 4 very severe COPD by GOLD classif ication documented in this encounter Insurance Payer Benefit Plan / Subscriber ID Effective Dates Phone Addre ss Type Group MANAGED MANAGED [id number] 2019-[facility] care Adv MEDICARE HMO MEDICARE HMO t HMO GENERIC GENERIC documented as of this encounter
--- OUTSIDE RECORDS SUMMARY | 2020-03-12 13:42 | XMS REPORT | Summary of Care ---
:1955 Author Organization [address] [address] Care Team Providers Name Role Phone MD Epifanio Unavailable Royal Pederson RNdemonstrator sewing techniques Gianni Valenzuela MSW Accounting Support Specialist Unavailable Cherise Dietrich MD Primary Care Provider Reason for Visit Reason Comments Follow-up Encounter Details Date Type Department Care Team Description 02/02/2020 Patient Outreach [facility] Gia Pederson, RN Follow-up [address] [address] Allergies Active Allergy Reactions Severity Noted Date Comments Penicillins Rash 10/05/2016 documented as of this encounter (statuses as of 02/02/2020) Medications Medication Sig Dispensed Refills Start Date End Date Status doxycycline hyclate Take 1 capsule 14 capsule 0 02/02/2020 Active 100 mg by mouth every capsuleIndications: 12 (twelve) SOB (shortness of hours for 7 breath), Tobacco use days. disorder, continuous lactobacillus Take 1 tablet 60 tablet 0 02/02/2020 A ctive acidophilus 25 by mouth 2 million cell -100 mg (two) times captabIndications: daily. SOB (shortness of breath), Tobacco use disorder, continuous nicotine 14 mg/24 hr Apply 1 Patch 30 Patch 2 2020 Active patchIndications: to area(s) SOB (shortness of every 24 breath), Tobacco use (twenty-four) disorder, continuous hours. hydrOXYzine 25 mg Take 1 tablet 20 tablet 0 02/02/2020 Active tabletIndications: by mouth every SOB (shortness of 6 (six) hours breath), Tobacco use as needed for disorder, continuous Anxiety. predniSONE 10 mg Take 40 mg po 32 tablet 0 02/02/2020 Active tabletIndications: qd x 3d, then SOB (shortness of 30 mg qd x 3d, breath), Tobacco use 20 mg qd x 3d, disorder, continuous 10 mg qd x 3d, 5 mg qd x 3d calcium-vitamin D Take 1 tablet 30 tablet 2 04/11/2017 Suspended 500 mg(1,250mg) -200 by mouth unit per tablet daily. Additional information fluticasone furoate-vilanterol Inhale 200 mcg 30 Each 3 05/24 Suspended (BREO ELLIPTA) 200-25 mcg/dose daily. DsDvIndications: Pulmonary emphysema, unspecified emphysema type, Chronic obstructive pulmonary disease, unspecified COPD type Additional information budesonide 0.5 mg/2 mL nebulizer Inhale 2 mL 2 100 Vial 3 Suspended solutionIndications: Pulmonary (two) times daily. emphysema, unspecified emphysema type, Hypoxia Additional information levalbuterol 0.63 mg/3 mL Inhale 0.63 mg every 30 Vial 2 Suspended nebulizer solutionIndications: 6 (six) hours as COPD exacerbation needed for Wheezing or Shortness of Breath. Additional information ipratropium 0.02 % nebulizer Inhale 2.5 mL every 30 Vial 2 0 10/07/2019 Suspended solutionIndications: COPD 6 (six) hours as exacerbation needed for Wheezing or Shortness of Breath. Additional information documented as of this encounter (statuses as of 02/02/2020) Active Problems Problem Noted Date COPD with acute exacerbation 01/29/2020 Elevated troponin I level 01/29/2020 Coronary artery calcification seen on CT scan 01/29/20 20 TAY (dyspnea on exertion) 01/29/2020 Elevated brain natriuretic peptide (BNP) level 020 Sinus tachycardia 10/06/2019 Anxiety about health 03/29/2017 Breast cancer 12/10/2016 Mass of breast, right 10/06/2016 COPD exacerbation 10/05/2016 Tobacco abuse 10/05/2016 Alcohol abuse 10/05/2016 Contact dermatitis and other eczema due to plants (exc ept food) Overview: poison mandy Breast cancer, right breast documented as of this encounter (statuses as of 02/02/2020) Immunizations Name Administration Dates Next Due Influenza [...] been in contact with No / Unsure 01/29/2020 12:05 AM CDT someone who was confirmed or suspected to have Coronavirus / COVID-19? documented as of this encounter Last Filed Vital Signs Not on filedocumented in this encounter Progress Notes Manda Pederson RN - 02/02/2020 10:43 AM CDTCHP: Pt continues to be admitted at [facility]. [facility] will continue following up with the patient prn. The patient has [facility] AAR Medicare coverage. CM inquiring with [facility] if the patient is being managed through [facility], re: follow up care and patient navigation. MAE Kendall, RN, [facility] Outpatient Pillow CleanerEditor In ChiefSampson Regional Medical Center O: [phone] M: [phone] documented in this encounter Plan of Treatment Date Type Specialty Care Team Description 05/06/2020 Office Visit Pulmonary Disease Bronwyn Don DO [address] [place] [address] Health Maintenance Due Date Last [...] Phone Address Typ e / Group Dates [facility] [id number] 2019-Pres Medica re Adv HEALTHCARE - MEDICARE ent HMO MANAGED COMPLETE MEDICARE TM MEDICAID OF xxxxxxxxx 2019-Pres [phone] [facility]i [facility] [place] ent [id number] [place] [address] [facility] [id number] 2020-Pres PPO HEALTHCARE HEALTHCARE/A ent JAMAL documented as of this encounter
--- OUTSIDE RECORDS SUMMARY | 2020-03-12 13:44 | XMS REPORT | Summary of Care ---
:1955 Author Organization [facility] Address [address] [place] [address] Care Team Providers Name Role Phone MD Epifanio Unavailable Royal Pederson RNterrapin fisher Gianni Valenzuela FORMING MACHINE UPKEEP MECHANIC HELPER Rainbow Trout Farm Manager Unavailable Cherise Dietrich MD Primary Care Provider Reason for Visit Reason Comments Orders home health Encounter Details Date Type Department Care Team Description 02/02/2020 Telephone [facility] Pediatrics Nile Dietrich s (home health) & Adult Primary Care- Yasemin Luong MD [place] [address] [address] [place] [address] Allergies Active Allergy Reactions Severity Noted Date Comments Penicillins Rash 10/05/2016 documented as of this encounter (statuses as of 02/04/2020) Medications Medication Sig Dispensed Refills Start Date End Date Status calcium-vitamin D 500 Take 1 tablet by [...] daily. Pulmonary emphysema, unspecified emphysema type, Hypoxia levalbuterol 0.63 Inhale 0.63 mg 30 Vial 2 10/07/2019 Active mg/3 mL nebulizer every 6 (six) solutionIndications: hours as needed COPD exacerbation for Wheezing or Shortness of Breath. ipratropium 0.02 % Inhale 2.5 mL 30 Vial 2 10/07/2019 Active nebulizer every 6 (six) solutionIndications: hours as needed COPD exacerbation for Wheezing or Shortness of Breath. doxycycline hyclate Take 1 capsule 14 capsule 0 02/02/2020 Active 100 mg by mouth every capsuleIndications: 12 (twelve) SOB (shortness of hours for 7 breath), Tobacco use days. disorder, continuous lactobacillus Take 1 tablet by 60 tablet 0 02/02/2020 Active acidophilus 25 mouth 2 (two) million cell -100 mg times daily. captabIndications: SOB (shortness of breath), Tobacco use disorder, continuous nicotine 14 mg/24 hr Apply 1 Patch to 30 Patch 2 2020 Active patchIndications: SOB area(s) every 24 (shortness of (twenty-four) breath), Tobacco use hours. disorder, continuous hydrOXYzine 25 mg Take 1 tablet by 20 tablet 0 02/02/2020 Active tabletIndications: mouth every 6 SOB (shortness of (six) hours as breath), Tobacco use needed for disorder, continuous Anxiety. predniSONE 10 mg Take 40 mg po qd 32 tablet 0 02/02/2020 Active tabletIndications: x 3d, then 30 mg SOB (shortness of qd x 3d, 20 mg breath), Tobacco use qd x 3d, 10 mg disorder, continuous qd x 3d, 5 mg qd x 3d documented as of this encounter (statuses as of 02/04/2020) Active Problems Problem Noted Date COPD with [...] as of this encounter (statuses as of 02/04/2020) Immunizations Name Administration Dates Next Due Influenza [...] Office Visit Pulmonary Disease Bronwyn Don DO [address] [place] [phone] Health Maintenance Due Date Last Done Comments [...] Phone Address Typ e / Group Dates [facility] [id number] 2019-Pres Medica re Adv HEALTHCARE - MEDICARE ent HMO MANAGED COMPLETE MEDICARE [facility] MEDICAID OF xxxxxxxxx 2019-Pres [phone] [place] ent [phone] [place] [address] [facility] [id number] 2020-Pres PPO HEALTHCARE HEALTHCARE/A ent JAMAL documented as of this encounter
--- OUTSIDE RECORDS SUMMARY | 2020-03-12 13:44 | XMS REPORT | Summary of Care ---
:1955 Author Organization [address] [address] Care Team Providers Name Role Phone MD Epifanio Unavailable Royal Pederson RNtrack inspector Gianni Valenzuela Granulator Operator Unavailable Cherise Dietrich MD Primary Care Provider Reason for Visit Reason Comments Follow-up Encounter Details Date Type Department Care Team Description 02/02/2020 Patient Outreach [facility] Gia Pederson, RN Follow-up [address] [phone] Allergies Active Allergy Reactions [...] Manda Pederson RN - 02/02/2020 10:43 AM CDTPt is NOT an [facility] patient. MAE Kendall, RN, [facility] Outpatient Esthetician Makeup ArtistAssociate Professor Of LiteracyOur Community Hospital O: [phone] M: [phone] Manda Gomez RN - 02/02/2020 10:43 AM CDTCHP: Pt continues to be admitted at [facility]. [facility] will continue following up with the patient prn. The patient has [facility] Medicare coverage. CM inquiring with [facility] if the patient is being managed thro [facility], re: follow up care and patient navigation. MAE Kendall, RN, [facility] Outpatient Esthetician Makeup ArtistAssociate Professor Of LiteracyOur Community Hospital O: [phone] M: [phone] documented in this encounter Plan of Treatment Date Type Specialty Care Team Description 05/06/2020 Office Visit Pulmonary Disease Bronwyn Don DO [address] [place] [address] Health Maintenance Due Date Last [...] Phone Address Typ e / Group Dates [facility] [id number] 2019-Pres Medica re Adv HEALTHCARE - MEDICARE ent HMO MANAGED COMPLETE MEDICARE [place] MEDICAID OF xxxxxxxxx 2019-Pres [phone] [place] ent [phone] [place] [address] [facility] [id number] 2020-Pres PPO HEALTHCARE HEALTHCARE/A ent JAMAL documented as of this encounter
--- OUTSIDE RECORDS SUMMARY | 2020-03-12 13:44 | XMS REPORT | Summary of Care ---
:1955 Author Organization [facility] Address [address] [place] [address] Care Team Providers Name Role Phone MD Epifanio Unavailable Royal Pederson RNpart time receptionist Gianni Valenzuela FIRE CONTROL TECHNICIAN [employer] Unavailable Cherise Dietrich MD Primary Care Provider Reason for Visit Reason Comments Appointment Encounter Details Date Type Department Care Team Description 02/02/2020 Telephone [facility] Pediatrics & Shanae Dietrich, Appointment Adult Primary Care- Jean [place] [address] [address] [place] [address] Allergies Active Allergy Reactions Severity [...] Office Visit Pulmonary Disease Bronwyn Don DO [address] [place] [address] Health Maintenance Due Date Last [...] Phone Address Typ e / Group Dates [facility] [id number] 2019-Pres Medica re Adv HEALTHCARE - MEDICARE ent HMO MANAGED COMPLETE MEDICARE [facility] MEDICAID OF xxxxxxxxx 2019-Pres [phone] [id number] [place] [address] [facility] [id number] 2020-Pres PPO HEALTHCARE HEALTHCARE/A ent JAMAL documented as of this encounter
--- OUTSIDE RECORDS SUMMARY | 2020-03-12 13:44 | XMS REPORT | Summary of Care ---
:1955 Author Organization [facility] Address [address] [place] [address] Care Team Providers Name Role Phone MD Epifanio Unavailable Royal Pederson RNclinical research nurse Gianni Valenzuela COSMETIC SALES ADVISOR Hot Tamale Worker Unavailable Cherise Dietrich MD Primary Care Provider Reason for Referral (Routine) Status Reason Specialty Diagnoses / Referred By Referred To Procedures Contact Contact New Request IM-PULMONARY Diagnoses SOB (shortness of breath) Tobacco use disorder, continuous Mario Sheikh, DISEASE Procedures Discharge Follow-Up: Specialty Service IM-PULMONARY DISEASE; [address] [place] [id number] Radiology Services (STAT) Status Reason Specialty Diagnoses / Referred By Referred To Procedures Contact Contact New Request Diagnostic Diagnoses SOB (shortness of breath) Kai Jim Radiology Procedures XR CHEST 1 BRYNN Dorman MD [address] [place] [address] [id number] [place] [address] Reason for Visit Reason Comments Shortness of Breath Auth/Cert Status Reason Specialty Diagnoses / Referred By Referred To Procedures Contact Contact Emergency Medicine Diagnoses sob [facility] Emergency Dept [address] [facility] [place] [address] Fax: Encounter Details Date Type Department Care Team Description 01/28/2020 - [facility] Medicine Kai Jim MD [address] [facility] [id number] [place], [place] [id number] COPD with acute 02/02/2020 Encounter Surgery Unit Barbara Barlow MD [address] [facility] [place], [place] [address] exacerbation [address] [facility] [place] [address] Allergies Active Allergy Reactions Severity Noted Date Comments Penicillins Rash 10/05/2016 documented as of this encounter (statuses as of 02/02/2020) Medications Medication Sig Dispensed Refills Start End Date Status Date calcium-vitamin D Take 1 tablet 30 tablet 2 Active 500 mg(1,250mg) by mouth 7 -200 unit per daily. tablet fluticasone Inhale 200 mcg 30 Each 3 Act miriam furoate-vilanterol daily. 9 (BREO ELLIPTA) 200-25 mcg/dose DsDvIndications: Pulmonary emphysema, unspecified emphysema type, Chronic obstructive pulmonary disease, unspecified COPD type budesonide 0.5 mg/2 Inhale 2 mL 2 100 Vial 3 Active mL nebulizer (two) times 9 solutionIndications daily. : Pulmonary emphysema, unspecified emphysema type, Hypoxia levalbuterol 0.63 Inhale 0.63 mg 30 Vial 2 Active mg/3 mL nebulizer every 6 (six) 0 solutionIndications hours as : COPD exacerbation needed for Wheezing or Shortness of Breath. ipratropium 0.02 % Inhale 2.5 mL 30 Vial 2 Active nebulizer every 6 (six) 0 solutionIndications hours as : COPD exacerbation needed for Wheezing or Shortness of Breath. doxycycline hyclate Take 1 capsule 14 capsule 0 01/21 Active 100 mg by mouth every 0 20 capsuleIndications: 12 (twelve) SOB (shortness of hours for 7 breath), Tobacco days. use disorder, continuous lactobacillus Take 1 tablet 60 tablet 0 Ac tive acidophilus 25 by mouth 2 0 million cell -100 (two) times mg daily. captabIndications: SOB (shortness of breath), Tobacco use disorder, continuous nicotine 14 mg/24 Apply 1 Patch 30 Patch 2 Active hr to area(s) 0 patchIndications: every 24 SOB (shortness of (twenty-four) breath), Tobacco hours. use disorder, continuous hydrOXYzine 25 mg Take 1 tablet 20 tablet 0 Active tabletIndications: by mouth every 0 SOB (shortness of 6 (six) hours breath), Tobacco as needed for use disorder, Anxiety. continuous predniSONE 10 mg Take 40 mg po 32 tablet 0 Active tabletIndications: qd x 3d, then 0 SOB (shortness of 30 mg qd x 3d, breath), Tobacco 20 mg qd x 3d, use disorder, 10 mg qd x 3d, continuous 5 mg qd x 3d anastrozole 1 mg Take 1 tablet 90 tablet 4 01/29/20 Discontinued tablet by mouth 7 20 (Patient daily. Reported) predniSONE 10 mg 4 tablets po 20 tablet 0 01/29/20 Discontinued tabletIndications: daily for 2 0 20 (Patient COPD exacerbation days, then 3 Reported) tablets po daily for 2 days, then 2 tablets po daily for 2 days, then 1 tablets po daily for 2 days, then stop nicotine 14 mg/24 Apply 1 Patch 21 Patch 0 01/29/20 Discontinued hr to area(s) 0 20 (Patient patchIndications: every 24 Re ported) Tobacco abuse (twenty-four) disorder hours. nicotine 7 mg/24 hr Apply 1 Patch 14 Patch 3 Discontinued patchIndications: to area(s) 0 20 ( Patient Tobacco abuse every 24 Report ed) disorder (twenty-four) hours. CHRIS ASPIRIN 325 Take 1 tablet 50 tablet 0 01/29/20 Discontinued mg by mouth every 0 20 (Holly ent tabletIndications: 6 (six) hours Reported) Tobacco abuse as needed disorder, Stage 4 (HEADACHE). very severe COPD by GOLD classification predniSONE 50 mg Take 1 tablet 5 tablet 0 01/29/20 Discontinued tabletIndications: by mouth 0 20 ( Patient COPD with acute daily. Repo rted) exacerbation documented as of this encounter (statuses [...] of this encounter Last Filed Vital Signs Vital Sign Reading Time Taken Comments Blood Pressure 100/67 02/02/2020 10:45 AM CDT Pulse 88 02/02/2020 10:45 AM CDT Temperature 36.6 C (97.8 F) 02/02/2020 10:45 AM CDT Respiratory Rate 20 02/02/2020 11:23 AM CDT Oxygen Saturation 98% 02/02/2020 11:23 AM CDT Inhaled Oxygen Concentration - - Weight 52 kg (114 lb 9.6 oz) 01/30/2020 4:00 AM CDT Height 157.5 cm (5' 2") 01/29/2020 3:38 AM CDT Body Mass Index 20.96 01/29/2020 3:38 AM CDT documented in this encounter Discharge Instructions Pauline Rosario RN - 02/02/2020 Patient Discharge Instructions Discharge date: 02/02/2020 Discharge Orders Regular Diet; Texture: Regular. Texture Regular. Diabetic: No Discharge Condition - Discharge Condition: GOOD Discharge Activity Discharge Activity: As Tolerated Discharge Follow-Up: Specialty Service IM-PULMONARY DISEASE; 2 Weeks Specialty: IM-PULMONARY DISEASE [41] Patient's Preferred Location: [place] [facility] Discharge Disposition: HOME, (AHR) When (Patients with risk for unplanned readmission score over 16 or those noted as Hospital Dependent should follow up within 7 days with PCP or primary DX specialist): 2 Weeks Risk of Unplanned Readmission:( Score greater than 16 indicates high risk) 14 VTE Propylaxis- Was ordered during hospitalization Home Health Order Order Comments: I certify that Mariana Turner is under my care and that I, or a nurse practitioner or physician's visitor services assistant working with me, had a xckh-vd-kaxx encounter with this patient on: 02/01/2020. The encounter with Mariana Turner was in whole or in part, for the following medical condition(s), which is the primary reason for home health care: COPD with acute exacerbation. I am ordering and certify that based on my findings the following services are medically necessary home health services: Evaluation and Treatment, Home Safety Eval and Physical Therapy Eval & Treatment Fci Services: Medication Management and Teaching PCP follow up: Yasemin Dietrich Call lab results to: My clinical findings support the need for the services listed above because: limited mobility Further, I certify that my clinical findings support that this patient is homebound (i.e. absences from home require considerable and taxing effort and are for medical reasons or voodoo services or infrequently or of short duration when for other reasons) because: Requires assistance of supported de vices to leave the home I understand and acknowledge that this is not a valid order until it is authenticated by a medical provider who has authority within their Scope of Practice to do so. I am inputting this information in my capacity as a scribe. Juanpablo Hoff RN DMEPOS Order Order Comments: Mariana Turner [id number] Estimated ROSANA: 99 Date of Lksp-le-Hfqs Needs Assessment: 02/01/20 I certify that this patient is under my care and that I, or a nurse practitioner, a certified nurse specialist, or a physician's visitor services assistant working with me, had a ymcz-yb-kmlf encounter that meets the physician tmjm-sq-rhny encounter requirement with this patient on the above given date. Diagnosis and Medical Necessity of Requested Service: generalized weakness Ambulatory Aids: Walker (Rollator) Please Attach the Following (as applicable): Patient Demographics Sheet I understand and acknowledge that this is not a valid order until it is authenticated by a medical provider who has authority within their Scope of Practice to do so. I am inputting this information in my capacity as a scribe. Juanpablo Hoff RN Take Home Medications These are medications ordered for you by your healthcare provider. Do not take any other medications or supplements unless advised by your healthcare provider. Current Discharge Medication List START taking these medications Details doxycycline hyclate 100 mg capsule Take 1 capsule by mouth every 12 (twelve) hours for 7 days. Qty: 14 capsule, Refills: 0 Associated Diagnoses: SOB (shortness of breath); Tobacco use disorder, continuous hydrOXYzine 25 mg tablet Take 1 tablet by mouth every 6 (six) hours as needed for Anxiety. Qty: 20 tablet, Refills: 0 Associated Diagnoses: SOB (shortness of breath); Tobacco use disorder, continuous lactobacillus acidophilus 25 million cell -100 mg captab Take 1 tablet by mouth 2 (two) times daily. Qty: 60 tablet, Refills: 0 Associated Diagnoses: SOB (shortness of breath); Tobacco use disorder, continuous nicotine 14 mg/24 hr patch Apply 1 Patch to area(s) every 24 (twenty-four) hours. Qty: 30 Patch, Refills: 2 Associated Diagnoses: SOB (shortness of breath); Tobacco use disorder, continuous predniSONE 10 mg tablet Take 40 mg po qd x 3d, then 30 mg qd x 3d, 20 mg qd x 3d, 10 mg qd x 3d, 5 mg qd x 3d Qty: 32 tablet, Refills: 0 Associated Diagnoses: SOB (shortness of breath); Tobacco use disorder, continuous CONTINUE these medications which have NOT CHANGED Details ipratropium 0.02 % nebulizer solution Inhale 2.5 mL every 6 (six) hours as needed for Wheezing or Shortness of Breath. Qty: 30 Vial, Refills: 2 Associated Diagnoses: COPD exacerbation levalbuterol 0.63 mg/3 mL nebulizer solution Inhale 0.63 mg every 6 (six) hours as needed for Wheezing or Shortness of Breath. Qty: 30 Vial, Refills: 2 Associated Diagnoses: COPD exacerbation fluticasone furoate-vilanterol (BREO ELLIPTA) 200-25 mcg/dose DsDv Inhale 200 mcg daily. Qty: 30 Each, Refills: 3 Associated Diagnoses: Pulmonary emphysema, unspecified emphysema type; Chronic obstructive pulmonary disease, unspecified COPD type calcium-vitamin D 500 mg(1,250mg) -200 unit per tablet Take 1 tablet by mouth daily. Qty: 30 tablet, Refills: 2 budesonide 0.5 mg/2 mL nebulizer solution Inhale 2 mL 2 (two) times daily. Qty: 100 Vial, Refills: 3 Associated Diagnoses: Pulmonary emphysema, unspecified emphysema type; Hypoxia For questions regarding follow-up instructions call the Healthcare Hotline at or For worsening symptoms/changing condition/problems or questions: Non-emergency/urgent: Call the Healthcare Hotline at or Emergency: Go to the closest emergency room or call [phone] If you receive the patient satisfaction survey by mail please complete and return and let us know how we are doing. TOBACCO AVOIDANCE Exposure to tobacco either from smoking or from second hand (environmental) smoke or smokeless tobacco (snuff) is damaging to your health. This information is to encourage everyone to avoid tobacco exposure. It is recommended that you: ? If you smoke or use smokeless tobacco, we encourage you to quit. ? If you have already quit smoking, continue your good work! ? If you do not smoke or use smokeless tobacco, do not start. ? Avoid secondhand smoke. Additional Resources You may want to contact these organizations for further information on smoking and how to quit. [place] [employer], http://www.lungusa.org/stop-smoking/ [place] [employer], http://www.cancer.org/Healthy/StayAwayfromTobacco/index [place] [employer], http://www.heart.org/HEARTORG/GettingHealthy/QuitSmoking/Quit-Smoking_[facility] _001085_SubHomePage.jsp AttachmentsThe following attachments cannot be sent through Care Everywhere. Chronic Obstructive Pulmonary Disease (COPD), Discharge Instructions (Vincentian) Prednisone tablets (Vincentian)Hydroxyzine capsules or tablets (Vincentian)Doxycycline tablets or capsules (Vincentian)Lactobacillus Oral formulations (Vincentian)Nicotine skin patches (Vincentian)documented in this encounter Progress Notes Juanpablo Hoff RN - 02/02/2020 10:50 AM CDT Care Management Discharge Disposition Note (DCDN) 5-2-1 Interventions: Home visit/home health referral 5-2-1 Providers: Cutter Finisher/Hot Tamale Worker 5-2-1 Patient Capacity Improvements: Transportation arrangements Discharge Plan for ongoing care and services: Durable Medical Equipment;Home Health (HH) Is this a new referral: Yes Patient Choice completed for referred services: Yes DME location: [address] [place], [place] () [phone] (F) [phone] Other DME location: Durable Medical Equipment: Rolling Walker Home Health location: [address] (Ph) [phone] (F) [phone] Discharge location(s): Home Health location: [address] (Ph) [phone] (F) [phone] DME location: [address] [place], [place](Ph) [phone] (F) [phone] Patient choice completed for referred services: Yes Discussed with patient/patients family involved in decision making: Yes Patient or family caregiver understands, and agrees with discharge plan. Community resources/referrals made or provided to patient: No Resources/Referrals: Transportation: Private Vehicle Mental Status: Alert & Oriented to Person,Place & Time Living Arrangement: Home Other living arrangement: Address of living arrangement: [address] [place] [address] Funding Resources: Commercial Nursing informed of discharge plan: Yes Name of RN informed: Expected discharge date: 02/02/2020 Time: Morning [10] Additional Information: ESTEVAN/DEBORAH Name & Contact number: Juanpablo Hoff RN . Juanpablo Hoff RN, BSN [facility] Cutter Finisher O [phone] F [phone] The following information has been provided to the facility noted above: reason for the patient discharge or transfer; patients physical and psychosocial status; summary of care, treatment, servicesprovided to patient; and the patient progress toward goals. Juanpablo Barber RN - 02/02/2020 10:45 AM CDTPt set up [facility] and rollator ordered through [facility]. No other needs identified. Juanpablo Hoff RN, BSN [facility] Cutter Finisher O [phone] F [phone] Victor Hugo Reeder MD - 02/02/2020 8:30 AM CDT [facility] Cardiology progress note Date of Service: 02/02/2020 Mariana Turner is a 64 years old female hospitalized for TAY/COPD Excerebration. Feeling better. No new cardiac complaints noted. PHYSICAL EXAM Vitals: 02/02/20 0402 02/02/20 0704 02/02/20 0706 02/02/20 0735 BP: 116/85 Pulse: 87 Resp: 16 16 20 20 Temp: 36.5 C (97.7 F) TempSrc: Temporal Artery SpO2: 97% 96% 96% 100% Weight: Height: General: no apparent distress HEENT: normocephalic atraumatic Neck: supple, no lymphadenopathy, no bruits, no JVD Lungs: clear to auscultation bilaterally Cardio: S1, S2, regular; no murmurs, rubs or gallops Abdomen: non-distended : not examined Rectal: not examined Extremities: no clubbing, cyanosis, or edema Skin: no rashes Neuro: no focal deficits Medications: I have reviewed the patient's medications; see Medication Reconciliation. Labs: I have reviewed the patient's labs. CBC BMP PT/INR WBC x10^3 (/uL) Date Value 01/12/2013 6.3 WBC (10*3/L) Date Value 02/02/2020 12.34 (H) NA Date Value 02/02/2020 136 mmol/L 01/12/2013 139 MMOL/L No results found for: PT PLT x10^3 (/uL) Date Value 01/12/2013 239 PLT (10*3/L) Date Value 02/02/2020 251 K Date Value 02/02/2020 4.0 mmol/L 01/12/2013 4.5 MMOL/L INR (no units) Date Value 01/29/2020 0.9 HGB Date Value 02/02/2020 12.3 g/dL 01/12/2013 16.5 G/DL (H) BUN Date Value 02/02/2020 21 mg/dL 01/12/2013 15 MG/DL HCT (%) Date Value 02/02/2020 37.1 01/12/2013 47.3 (H) CREATININE Date Value 02/02/2020 0.55 mg/dL 01/12/2013 0.65 MG/DL LIPID PROFILE GLUCOSE Date Value 02/02/2020 91 mg/dL 01/12/2013 106 MG/DL CHOL (mg/dL) Date Value 01/29/2020 215 (H) TSH LDL CHOL (mg/dL) Date Value 01/29/2020 81 TSH (mIU/L) Date Value 01/29/2020 0.25 (L) CARDIAC ENZYMES HDL (mg/dL) Date Value 01/29/2020 122 CK (U/L) Date Value 01/29/2020 36 TRIG (mg/dL) Date Value 01/29/2020 61 LFTs CK-MB (ng/mL) Date Value 01/12/2013 0.6 AST(SGOT) (U/L) Date Value 01/31/2020 42 (H) TROPONIN I (ng/mL) Date Value 01/29/2020 0.013 01/12/2013 0.006 ALT(SGPT) (U/L) Date Value 06/09/2019 49 ALTv (U/L) Date Value 01/31/2020 40 (H) No results found for: BNP LDL CHOL (mg/dL) Date Value 01/29/2020 81 Recent Labs 01/29/20 1341 TROPNI 0.013 Recent Labs 01/29/20 0845 TRIG 61 LDL CHOL (mg/dL) Date Value 01/29/2020 81 NT-proBNP (pg/mL) Date Value 01/31/2020 532 (H) 01/12/2013 186 (H) Echo 01/2020 Interpretation Summary A complete two-dimensional transthoracic echocardiogram was performed (2D, M- mode, Doppler and colorflow Doppler). There is no comparison study available. The study was technically difficult. Left ventricular systolic function is normal. Diastolic function is impaired relaxation. The right ventricle is normal in size and function. Insufficient Tricuspid regurgitation jet to estimate RVSP. ASSESSMENT AND PLAN Principal Problem: COPD with acute exacerbation Active Problems: COPD exacerbation Tobacco abuse Sinus tachycardia Elevated troponin I level Coronary artery calcification seen on CT scan TAY (dyspnea on exertion) Elevated brain natriuretic peptide (BNP) level Elevated Trop: Type 2 ME. Stable. ECG shows no dynamic changes noted. Echo results reviewed with thepatient. Normal LVEF and wall motion. Tele monitoring: No arrhythmias. Elevated BNP: Diastolic dysfunction. Echo results reviewed with the patient. Clinically doesn't appear to be volume overload. Hold IV diuretics for now. TAY NYHA Class III-IV: Improving. Acute hypoxic respiratory failure: COPD exacerbation: as per primary team. Coronary artery calcification noted in CT 2017. Recommend ASA 81 mg daily, LDL < 70 May need outpatient stress test once the respiratory symptoms improves. Dyslipidemia: Recommended to keep LDL < 70. Lifestyle modifications stressed. Rpt lipid panel in 3 months, if rpt LDL > 70, then will consider starting lipitor. LDL CHOL (mg/dL) Date Value 01/29/2020 81 F/u [facility] cardiology Dr. Mckeon/Tripp. Victor Hugo Mckeon MD, FAC, YOSEF Animal Shelter Clerk, Division of Cardiology [facility] Saray Sanchez MD - 02/01/2020 1:00 PM CDT [facility] Cardiology progress note Date of Service: 02/01/2020 Mariana Turner is a 64 year old female hospitalized for TAY/COPD Excerebration. Feeling better. No new cardiac complaints noted. PHYSICAL EXAM Vitals: 02/01/20 0740 02/01/20 1110 02/01/20 1131 02/01/20 1145 BP: 101/63 Pulse: 78 72 74 80 Resp: Temp: 37.1 C (98.8 F) TempSrc: SpO2: 96% 91% 96% 97% Weight: Height: Date 02/01/20 0700 - 02/02/20 0659 Shift 8646-0644 2985-1361 6989-2142 24 Hour Total INTAKE Shift Total OUTPUT Urine(mL/kg/hr) 600 600 Shift Total 600 600 Weight (kg) 52 52 52 52 General: no apparent distress HEENT: normocephalic atraumatic Neck: supple, no lymphadenopathy, no bruits, no JVD Lungs: clear to auscultation bilaterally Cardio: S1, S2, regular; no murmurs, rubs or gallops Abdomen: non-distended : not examined Rectal: not examined Extremities: no clubbing, cyanosis, or edema Skin: no rashes Neuro: no focal deficits Medications: I have reviewed the patient's medications; see Medication Reconciliation. Labs: I have reviewed the patient's labs. CBC BMP PT/INR WBC x10^3 (/uL) Date Value 01/12/2013 6.3 WBC (10*3/L) Date Value 02/01/2020 11.17 (H) NA Date Value 02/01/2020 139 mmol/L 01/12/2013 139 MMOL/L No results found for: PT PLT x10^3 (/uL) Date Value 01/12/2013 239 PLT (10*3/L) Date Value 02/01/2020 265 K Date Value 02/01/2020 4.4 mmol/L 01/12/2013 4.5 MMOL/L INR (no units) Date Value 01/29/2020 0.9 HGB Date Value 02/01/2020 12.8 g/dL 01/12/2013 16.5 G/DL (H) BUN Date Value 02/01/2020 18 mg/dL 01/12/2013 15 MG/DL HCT (%) Date Value 02/01/2020 39.2 01/12/2013 47.3 (H) CREATININE Date Value 02/01/2020 0.47 mg/dL (L) 01/12/2013 0.65 MG/DL LIPID PROFILE GLUCOSE Date Value 02/01/2020 138 mg/dL (H) 01/12/2013 106 MG/DL CHOL (mg/dL) Date Value 01/29/2020 215 (H) TSH LDL CHOL (mg/dL) Date Value 01/29/2020 81 TSH (mIU/L) Date Value 01/29/2020 0.25 (L) CARDIAC ENZYMES HDL (mg/dL) Date Value 01/29/2020 122 CK (U/L) Date Value 01/29/2020 36 TRIG (mg/dL) Date Value 01/29/2020 61 LFTs CK-MB (ng/mL) Date Value 01/12/2013 0.6 AST(SGOT) (U/L) Date Value 01/31/2020 42 (H) TROPONIN I (ng/mL) Date Value 01/29/2020 0.013 01/12/2013 0.006 ALT(SGPT) (U/L) Date Value 06/09/2019 49 ALTv (U/L) Date Value 01/31/2020 40 (H) No results found for: BNP LDL CHOL (mg/dL) Date Value 01/29/2020 81 Recent Labs 01/29/20 1341 TROPNI 0.013 Recent Labs 01/29/20 0845 TRIG 61 LDL CHOL (mg/dL) Date Value 01/29/2020 81 NT-proBNP (pg/mL) Date Value 01/31/2020 532 (H) 01/12/2013 186 (H) Echo 01/2020 Interpretation Summary A complete two-dimensional transthoracic echocardiogram was performed (2D, M- mode, Doppler and colorflow Doppler). There is no comparison study available. The study was technically difficult. Left ventricular systolic function is normal. Diastolic function is impaired relaxation. The right ventricle is normal in size and function. Insufficient Tricuspid regurgitation jet to estimate RVSP. ASSESSMENT AND PLAN Principal Problem: COPD with acute exacerbation Active Problems: COPD exacerbation Tobacco abuse Sinus tachycardia Elevated troponin I level Coronary artery calcification seen on CT scan TAY (dyspnea on exertion) Elevated brain natriuretic peptide (BNP) level Elevated Trop: Type 2 ME Stable. ECG shows no dynamic changes noted. Echo results reviewed with the patient. Tele monitoring: No arrhythmias. Elevated BNP: Diastolic d Echo results reviewed with the patient. Clinically doesn't appear to be volume overload. Hold IV diuretics for now. TAY NYHA Class III-IV: Improving. Acute hypoxic respiratory failure: COPD exacerbation: as per primary team. Coronary artery calcification noted in CT 2017 Recommend ASA 81 mg daily, LDL < 70 May need outpatient stress test once the respiratory symptoms improves. Dyslipidemia: Recommended to keep LDL < 70. Lifestyle modifications stressed. Rpt lipid panel in 3 months, if rpt LDL > 70, then will consider starting lipitor. LDL CHOL (mg/dL) Date Value 01/29/2020 81 Teto Almaguer MD 02/01/2020 1:00 PM Animal Shelter Clerk, Division of Cardiology [facility] Mario Sheikh MD - 02/01/2020 11:44 AM CDT Hospitalist Progress Note SUBJECTIVE: Feels better today. CURRENT MEDICATIONS - reviewed. Current Facility-Administered Medications Medication Dose Route Frequency Last Rate Last Dose traMADol (ULTRAM) tablet 50 mg 50 mg Oral Q8HPRN methylPREDNISolone sod succ (SOLU-MEDROL (PF)) injection 40 mg 40 mg Slow IV Push BID 40 mg at 02/01/20 0915 acetaminophen (TYLENOL) tablet 650 mg 650 mg Oral Q6HPRN azithromycin (ZITHROMAX) 500 mg in NaCl 0.9% (NS) 250 mL VIAL-MATE IV piggyback 500 mg IV Piggyback Q24H ABX 500 mg at 02/01/20 1133 budesonide (PULMICORT RESPULE) nebulizer solution 0.5 mg 0.5 mg Inhalation BID 0.5 mg at 02/01/20 0733 enoxaparin (LOVENOX) injection 40 mg 40 mg Subcutaneous DAILY 40 mg at 02/01/20 0915 ipratropium (ATROVENT) 0.02 % nebulizer solution 0.5 mg 0.5 mg Inhalation Q4H 0.5 mg at 02/01/20 1131 lactobacillus acidophilus (ACIDOPHILLUS) 25 million cell -100 mg captab 1 tablet 1 tablet Oral BID 1 tablet at 02/01/20 0915 levalbuterol (XOPENEX) nebulizer solution 1.25 mg 1.25 mg Inhalation TIDPRN levalbuterol (XOPENEX) nebulizer solution 1.25 mg 1.25 mg Inhalation Q4H 1.25 mg at 02/01/20 1131 LORazepam (ATIVAN) injection 0.25 mg 0.25 mg Slow IV Push TIDPRN 0.25 mg at 01/31/20 1436 nicotine (NICODERM) 14 mg/24 hr patch 1 Patch 1 Patch Topical Q24H 1 Patch at 02/01/20 0619 ondansetron (ZOFRAN (PF)) injection 4 mg 4 mg Slow IV Push Q6HPRN PHYSICAL EXAM: BP 101/63 | Pulse 72 | Temp 37.1 C (98.8 F) | Resp 20 | Ht 5' 2" (1.575 m) | Wt 114 lb 9.6 oz (52 kg) | SpO2 91% | BMI 20.96 kg/m Temp: [36 C (96.8 F)-37.1 C (98.8 F)] Pulse: [70-80] Resp: [18-22] BP: (101-130)/(63-82) Intake/Output Summary (Last 24 hours) at 02/01/2020 1144 Last data filed at 02/01/2020 0815 Gross per 24 hour Intake 200 ml Output 1000 ml Net -800 ml NAD Anicteric sclera, oral mucosa clear Very poor air entry b/l No significant LE, no calf tenderness AAO, no gross deficits Skin warm and dry LABS/IMAGING - reviewed, pertinent results as below: CBC BMP PT/INR WBC x10^3 (/uL) Date Value 01/12/2013 6.3 WBC (10*3/L) Date Value 02/01/2020 11.17 (H) NA Date Value 02/01/2020 139 mmol/L 01/12/2013 139 MMOL/L No results found for: PT RBC x10^6 (/uL) Date Value 01/12/2013 5.17 RBC (10*6/L) Date Value 02/01/2020 4.03 K Date Value 02/01/2020 4.4 mmol/L 01/12/2013 4.5 MMOL/L INR (no units) Date Value 01/29/2020 0.9 PLT x10^3 (/uL) Date Value 01/12/2013 239 PLT (10*3/L) Date Value 02/01/2020 265 CALCIUM Date Value 02/01/2020 9.3 mg/dL 01/12/2013 9.5 MG/DL HGB Date Value 02/01/2020 12.8 g/dL 01/12/2013 16.5 G/DL (H) CL Date Value 02/01/2020 98 mmol/L 01/12/2013 103 MMOL/L aPTT HCT (%) Date Value 02/01/2020 39.2 01/12/2013 47.3 (H) BUN Date Value 02/01/2020 18 mg/dL 01/12/2013 15 MG/DL APTT Patient (Seconds) Date Value 01/29/2020 26 CREATININE Date Value 02/01/2020 0.47 mg/dL (L) 01/12/2013 0.65 MG/DL IMAGING- Hospital Encounter on 01/28/20 XR CHEST 1 VW Narrative EXAM: XR CHEST 1 VW HISTORY: SOB COMPARISON: Chest radiograph 10/05/2019 FINDINGS: The lungs are emphysematous. Mild pulmonary vascular congestion is identified with trace left pleural effusion. No pneumothorax. The heart is mildly enlarged. No acute bony abnormalities are noted. Impression Mild pulmonary vascular congestion. Trace left pleural effusion. Emphysema. Preliminary Report Dictated by Resident: Von Car I, Leonardo Lainez MD., have reviewed this study and agree with the above report. ASSESSMENT/PLAN Mariana Turner is a 64 year old female with Acute on chronic hypoxic and hypercapneic respiratory failure 2/2 AECOPD Required bipap initially, now weaned off Hx of stage 4 severe COPD, Hx of chronic hypoxic respiratory failure on oxygen at home. Follows pulmDr. Florencia Found mold in house that's being taken out right now Improved with solumedrol, azithromycin, nebs Switch to po doxycycline, prednisone Has nebulizer Needs Pulm f/u Active smoker Counseled on smoking cessation Nicotine patch Elevated troponin, likely type 2 nstemi Echo unremarkable Cardiology consult Dr. Almaguer dvt proph lovenox Full Code Dispo - home tomorrow Juanpablo Barber RN - 02/01/2020 9:26 AM CDTCare Management Social Functional Assessment Patient Name: Mariana Turner Age: [age] year old Sex: female Patient's Previous Admission Date at [facility]: 10/05/2016 Current diagnosis and co-morbidities: COPD exacerbation Readmission Questions: Was patient discharged from any acute care hospital within the last 30 days: No Social Functional Assessment: Primary language spoken/preferred: Vincentian Mental Status: Alert & Oriented to Person,Place & Time Information given by: Self Patient's support system: Other Name and number of support system: Stella Patel caregiver [phone] Primary Manufacturing Planner: Self MPOA: Same as support system Living Arrangement: Home Address of living arrangement : [address] [place] [address] Persons living in home: Same as support system Barriers to returning home: None Baseline functional status- ambulation: Independent Functional status-baseline personal care: Independent Baseline functional status- driving: Dependent Baseline functional status- grocery shopping: Independent Functional status-baseline housekeeping: Independent Functional status-baseline meal prep: Independent Current functional status same as prior: Yes Do you have a PCP?: Yes Name of PCP: [facility] Agency: No Provider Services: No DME Company: Yes Name of DME company: [facility] [address], [address], [place] [address] (Ph) [phone] (F) [phone] Previous or current DME company: Current Equipment: O2:Portable tank available;O2: LPM;Nebulizer Hemodialysis: No Community resources utilized: None Funding Resources: Medicare Replacement Medicare Replacement name and information: [facility] Prescription coverage plan: Medicare Part D Pharmacy where meds are filled: Other Other pharmacy: [facility] Anticipated services prior to disharge: Continue Medical Eval Expected mode of discharge transportation: Same as support system Additional info required for discharge planning: Pending medical evaluation Recommended discharge plan: Home SFA Complete: Social Functional Assessment complete: Yes Alcohol Use Screening (AUDIT-C) How often do you have a drink containing alcohol?: Never SCORE: 0 Role of Care Management explained. Yes Any issues or concerns with obtaining/affording your medications at home: no. Are you or your support system able to lease picker medications at discharge: yes. Describe: Juanpablo Hoff RN, BSN [facility] Cutter Finisher [phone] Sugar Epstein MD - 01/31/2020 4:01 PM CDT Hospitalist Progress Note SUBJECTIVE: Feeling better than yesterday but still sob, Some cough No leg edema, no chest pain Only on O2; not on bipap overnight CURRENT MEDICATIONS - reviewed. Current Facility-Administered Medications Medication Dose Route Frequency Last Rate Last Dose methylPREDNISolone sod succ (SOLU-MEDROL (PF)) injection 40 mg 40 mg Slow IV Push BID 40 mg at 01/31/20 0931 acetaminophen (TYLENOL) tablet 650 mg 650 mg Oral Q6HPRN azithromycin (ZITHROMAX) 500 mg in NaCl 0.9% (NS) 250 mL VIAL-MATE IV piggyback 500 mg IV Piggyback Q24H ABX 500 mg at 01/31/20 1431 budesonide (PULMICORT RESPULE) nebulizer solution 0.5 mg 0.5 mg Inhalation BID 0.5 mg at 01/31/20 0827 enoxaparin (LOVENOX) injection 40 mg 40 mg Subcutaneous DAILY 40 mg at 01/30/20 0854 ipratropium (ATROVENT) 0.02 % nebulizer solution 0.5 mg 0.5 mg Inhalation Q4H 0.5 mg at 01/31/20 1226 lactobacillus acidophilus (ACIDOPHILLUS) 25 million cell -100 mg captab 1 tablet 1 tablet Oral BID 1 tablet at 01/31/20 0931 levalbuterol (XOPENEX) nebulizer solution 1.25 mg 1.25 mg Inhalation TIDPRN levalbuterol (XOPENEX) nebulizer solution 1.25 mg 1.25 mg Inhalation Q4H 1.25 mg at 01/31/20 1226 LORazepam (ATIVAN) injection 0.25 mg 0.25 mg Slow IV Push TIDPRN 0.25 mg at 01/31/20 1436 nicotine (NICODERM) 14 mg/24 hr patch 1 Patch 1 Patch Topical Q24H 1 Patch at 01/31/20 0737 ondansetron (ZOFRAN (PF)) injection 4 mg 4 mg Slow IV Push Q6HPRN PHYSICAL EXAM: BP 114/79 | Pulse 80 | Temp 36.7 C (98 F) (Temporal Artery) | Resp 18 | Ht 1.575 m (5' 2") | Wt 52 kg (114 lb 9.6 oz) | SpO2 97% | BMI 20.96 kg/m Temp: [36.3 C (97.4 F)-36.8 C (98.3 F)] Heart Rate (monitor): [88] Pulse: [70-88] Resp: [14-20] BP: (102-121)/(64-83) MAP (mmHg): [78] Intake/Output Summary (Last 24 hours) at 01/31/2020 1601 Last data filed at 01/31/2020 1230 Gross per 24 hour Intake 420 ml Output 1400 ml Net -980 ml NAD Anicteric sclera, oral mucosa clear Very poor air entry b/l RRR, nl s1s2 Abd soft NT No significant LE, no calf tenderness AAO, no gross deficits Skin warm and dry LABS/IMAGING - reviewed, pertinent results as below: CBC BMP PT/INR WBC x10^3 (/uL) Date Value 01/12/2013 6.3 WBC (10*3/L) Date Value 01/31/2020 20.77 (H) NA Date Value 01/31/2020 139 mmol/L 01/12/2013 139 MMOL/L No results found for: PT RBC x10^6 (/uL) Date Value 01/12/2013 5.17 RBC (10*6/L) Date Value 01/31/2020 3.98 K Date Value 01/31/2020 4.1 mmol/L 01/12/2013 4.5 MMOL/L INR (no units) Date Value 01/29/2020 0.9 PLT x10^3 (/uL) Date Value 01/12/2013 239 PLT (10*3/L) Date Value 01/31/2020 284 CALCIUM Date Value 01/31/2020 9.6 mg/dL 01/12/2013 9.5 MG/DL HGB Date Value 01/31/2020 12.7 g/dL 01/12/2013 16.5 G/DL (H) CL Date Value 01/31/2020 95 mmol/L (L) 01/12/2013 103 MMOL/L aPTT HCT (%) Date Value 01/31/2020 38.1 01/12/2013 47.3 (H) BUN Date Value 01/31/2020 18 mg/dL 01/12/2013 15 MG/DL APTT Patient (Seconds) Date Value 01/29/2020 26 CREATININE Date Value 01/31/2020 0.53 mg/dL 01/12/2013 0.65 MG/DL IMAGING- Hospital Encounter on 01/28/20 XR CHEST 1 VW Narrative EXAM: XR CHEST 1 VW HISTORY: SOB COMPARISON: Chest radiograph 10/05/2019 FINDINGS: The lungs are emphysematous. Mild pulmonary vascular congestion is identified with trace left pleural effusion. No pneumothorax. The heart is mildly enlarged. No acute bony abnormalities are noted. Impression Mild pulmonary vascular congestion. Trace left pleural effusion. Emphysema. Preliminary Report Dictated by Resident: Von Car I, Leonardo Lainez MD., have reviewed this study and agree with the above report. ASSESSMENT/PLAN Mariana Turner is a 64 year old female with Acute on chronic hypoxic and hypercapneic respiratory failure. Required bipap initially, now weaned off Acute COPD exacerbation Hx of stage 4 severe COPD, Hx of chronic hypoxic respiratory failure on oxygen at home. Follows pulmDr. Florencia Found mold in house that's being taken out right now IV steroids day 3 (change to oral prednisone tomorrow), IV azithromycin day 3/7, xopenex/atrovent q4h, pulmicort bid metaneb Procal 0.02 ngtd sputum culture, respiratory panel, legionella, mycolasma - all ngtd Pulmonology consult Dr. Don Active smoker Counseled on smoking cessation Nicotine patch Elevated troponin, likely type 2 nstemi Elevated BNP Mild elevation in LFT Hyponatremia, mild Chronic metabolic alklalosis Mild pulmonary vascular congestion on CXR. One dose of iv lasix 20 mg on 01/29 Telemetry Trend trops Cardiology consult Dr. Almaguer dvt proph lovenox Full Code, advance care planning discussed by me with patient previously, surrogate decision maker in chart Dispo - home in a couple of days once breathing improves. Severe COPD, exacerbation, so will take time possibly Saray Sanchez MD - 01/31/2020 9:53 AM CDT [facility] Cardiology progress note Date of Service: 01/31/2020 Mariana Turner is a 64 year old female hospitalized for TAY/COPD Excerebration. Feeling better. No new cardiac complaints noted. PHYSICAL EXAM Vitals: 01/31/20 0205 01/31/20 0408 01/31/20 0740 01/31/20 0827 BP: 121/71 120/83 Pulse: 70 72 77 Resp: 18 18 18 18 Temp: 36.7 C (98 F) 36.5 C (97.7 F) TempSrc: Temporal Artery Temporal Artery SpO2: 96% 98% 98% 97% Weight: Height: General: no apparent distress HEENT: normocephalic atraumatic Neck: supple, no lymphadenopathy, no bruits, no JVD Lungs: clear to auscultation bilaterally Cardio: S1, S2, regular; no murmurs, rubs or gallops Abdomen: non-distended : not examined Rectal: not examined Extremities: no clubbing, cyanosis, or edema Skin: no rashes Neuro: no focal deficits Medications: I have reviewed the patient's medications; see Medication Reconciliation. Labs: I have reviewed the patient's labs. CBC BMP PT/INR WBC x10^3 (/uL) Date Value 01/12/2013 6.3 WBC (10*3/L) Date Value 01/31/2020 20.77 (H) NA Date Value 01/31/2020 139 mmol/L 01/12/2013 139 MMOL/L No results found for: PT PLT x10^3 (/uL) Date Value 01/12/2013 239 PLT (10*3/L) Date Value 01/31/2020 284 K Date Value 01/31/2020 4.1 mmol/L 01/12/2013 4.5 MMOL/L INR (no units) Date Value 01/29/2020 0.9 HGB Date Value 01/31/2020 12.7 g/dL 01/12/2013 16.5 G/DL (H) BUN Date Value 01/31/2020 18 mg/dL 01/12/2013 15 MG/DL HCT (%) Date Value 01/31/2020 38.1 01/12/2013 47.3 (H) CREATININE Date Value 01/31/2020 0.53 mg/dL 01/12/2013 0.65 MG/DL LIPID PROFILE GLUCOSE Date Value 01/31/2020 126 mg/dL (H) 01/12/2013 106 MG/DL CHOL (mg/dL) Date Value 01/29/2020 215 (H) TSH LDL CHOL (mg/dL) Date Value 01/29/2020 81 TSH (mIU/L) Date Value 01/29/2020 0.25 (L) CARDIAC ENZYMES HDL (mg/dL) Date Value 01/29/2020 122 CK (U/L) Date Value 01/29/2020 36 TRIG (mg/dL) Date Value 01/29/2020 61 LFTs CK-MB (ng/mL) Date Value 01/12/2013 0.6 AST(SGOT) (U/L) Date Value 01/31/2020 42 (H) TROPONIN I (ng/mL) Date Value 01/29/2020 0.013 01/12/2013 0.006 ALT(SGPT) (U/L) Date Value 06/09/2019 49 ALTv (U/L) Date Value 01/31/2020 40 (H) No results found for: BNP LDL CHOL (mg/dL) Date Value 01/29/2020 81 Recent Labs 01/29/20 1341 TROPNI 0.013 Recent Labs 01/29/20 0845 TRIG 61 LDL CHOL (mg/dL) Date Value 01/29/2020 81 NT-proBNP (pg/mL) Date Value 01/29/2020 822 (H) 01/12/2013 186 (H) Echo 01/2020 Interpretation Summary A complete two-dimensional transthoracic echocardiogram was performed (2D, M- mode, Doppler and colorflow Doppler). There is no comparison study available. The study was technically difficult. Left ventricular systolic function is normal. Diastolic function is impaired relaxation. The right ventricle is normal in size and function. Insufficient Tricuspid regurgitation jet to estimate RVSP. ASSESSMENT AND PLAN Principal Problem: COPD with acute exacerbation Active Problems: COPD exacerbation Tobacco abuse Sinus tachycardia Elevated troponin I level Coronary artery calcification seen on CT scan TAY (dyspnea on exertion) Elevated brain natriuretic peptide (BNP) level Elevated Trop: Type 2 ME Stable. ECG shows no dynamic changes noted. Echo results reviewed with the patient. Tele monitoring: No arrhythmias. Elevated BNP: Echo results reviewed with the patient. Clinically doesn't appear to be volume overload. Hold IV diuretics for now. TAY NYHA Class III-IV: Improving. Acute hypoxic respiratory failure: COPD exacerbation: as per primary team. Coronary artery calcification noted in CT 2017 Recommend ASA 81 mg daily, LDL < 70 May need outpatient stress test once the respiratory symptoms improves. Dyslipidemia: Recommended to keep LDL < 70. Lifestyle modifications stressed. Rpt lipid panel in 3 months, if rpt LDL > 70, then will consider starting lipitor. LDL CHOL (mg/dL) Date Value 01/29/2020 81 Teto Almaguer MD 01/31/2020 9:53 AM Animal Shelter Clerk, Division of Cardiology [facility] Sugar Park MD - 01/30/2020 6:12 PM CDT Hospitalist Progress Note SUBJECTIVE: Feeling better than yesterday but still sob, Some cough No leg edema, no chest pain Tolerated bipap overnight CURRENT MEDICATIONS - reviewed. Current Facility-Administered Medications Medication Dose Route Frequency Last Rate Last Dose acetaminophen (TYLENOL) tablet 650 mg 650 mg Oral Q6HPRN azithromycin (ZITHROMAX) 500 mg in NaCl 0.9% (NS) 250 mL VIAL-MATE IV piggyback 500 mg IV Piggyback Q24H ABX 500 mg at 01/30/20 1153 budesonide (PULMICORT RESPULE) nebulizer solution 0.5 mg 0.5 mg Inhalation BID 0.25 mg at 01/30/20 0720 enoxaparin (LOVENOX) injection 40 mg 40 mg Subcutaneous DAILY 40 mg at 01/30/20 0854 fluticasone propion-salmeterol (ADVAIR) 250-50 mcg/dose inhalation disk 1 Puff 1 Puff Inhalation Q12H 1 Puff at 01/30/20 0738 ipratropium (ATROVENT) 0.02 % nebulizer solution 0.5 mg 0.5 mg Inhalation Q4H 0.5 mg at 01/30/20 1458 lactobacillus acidophilus (ACIDOPHILLUS) 25 million cell -100 mg captab 1 tablet 1 tablet Oral BID 1 tablet at 01/30/20 0854 levalbuterol (XOPENEX) nebulizer solution 1.25 mg 1.25 mg Inhalation TIDPRN levalbuterol (XOPENEX) nebulizer solution 1.25 mg 1.25 mg Inhalation Q4H 1.25 mg at 01/30/20 1458 LORazepam (ATIVAN) injection 0.25 mg 0.25 mg Slow IV Push TIDPRN 0.25 mg at 01/29/20 1612 methylPREDNISolone sod succ (SOLU-MEDROL (PF)) injection 40 mg 40 mg Slow IV Push Q6H 40 mg at 01/30/20 1736 nicotine (NICODERM) 14 mg/24 hr patch 1 Patch 1 Patch Topical Q24H 1 Patch at 01/30/20 0611 ondansetron (ZOFRAN (PF)) injection 4 mg 4 mg Slow IV Push Q6HPRN sodium chloride 7% (HYPER-MEDARDO) nebulizer solution 4 mL 4 mL Inhalation DAILY 4 mL at traMADol (ULTRAM) tablet 50 mg 50 mg Oral Q8HPRN PHYSICAL EXAM: BP 102/67 | Pulse 85 | Temp 36.8 C (98.3 F) (Temporal Artery) | Resp 14 | Ht 1.575 m (5' 2") | Wt 52 kg (114 lb 9.6 oz) | SpO2 96% | BMI 20.96 kg/m Temp: [36.1 C (97 F)-36.9 C (98.5 F)] Heart Rate (monitor): [74-116] Pulse: [71-126] Resp: [12-22] BP: (94-134)/(60-80) MAP (mmHg): [74-89] Intake/Output Summary (Last 24 hours) at 01/30/2020 1812 Last data filed at 01/30/2020 1725 Gross per 24 hour Intake 1060 ml Output 610 ml Net 450 ml NAD Anicteric sclera, oral mucosa clear Very poor air entry b/l RRR, nl s1s2 Abd soft NT No significant LE, no calf tenderness AAO, no gross deficits Skin warm and dry LABS/IMAGING - reviewed, pertinent results as below: CBC BMP PT/INR WBC x10^3 (/uL) Date Value 01/12/2013 6.3 WBC (10*3/L) Date Value 01/30/2020 21.12 (H) NA Date Value 01/30/2020 136 mmol/L 01/12/2013 139 MMOL/L No results found for: PT RBC x10^6 (/uL) Date Value 01/12/2013 5.17 RBC (10*6/L) Date Value 01/30/2020 4.18 K Date Value 01/30/2020 4.6 mmol/L 01/12/2013 4.5 MMOL/L INR (no units) Date Value 01/29/2020 0.9 PLT x10^3 (/uL) Date Value 01/12/2013 239 PLT (10*3/L) Date Value 01/30/2020 287 CALCIUM Date Value 01/30/2020 9.3 mg/dL 01/12/2013 9.5 MG/DL HGB Date Value 01/30/2020 13.1 g/dL 01/12/2013 16.5 G/DL (H) CL Date Value 01/30/2020 94 mmol/L (L) 01/12/2013 103 MMOL/L aPTT HCT (%) Date Value 01/30/2020 40.6 01/12/2013 47.3 (H) BUN Date Value 01/30/2020 13 mg/dL 01/12/2013 15 MG/DL APTT Patient (Seconds) Date Value 01/29/2020 26 CREATININE Date Value 01/30/2020 0.43 mg/dL (L) 01/12/2013 0.65 MG/DL IMAGING- Hospital Encounter on 01/28/20 XR CHEST 1 VW Narrative EXAM: XR CHEST 1 VW HISTORY: SOB COMPARISON: Chest radiograph 10/05/2019 FINDINGS: The lungs are emphysematous. Mild pulmonary vascular congestion is identified with trace left pleural effusion. No pneumothorax. The heart is mildly enlarged. No acute bony abnormalities are noted. Impression Mild pulmonary vascular congestion. Trace left pleural effusion. Emphysema. Preliminary Report Dictated by Resident: Evan Mayoans Lainez, MD., have reviewed this study and agree with the above report. ASSESSMENT/PLAN Mariana Turner is a 64 year old female with Acute on chronic hypoxic and hypercapneic respiratory failure. Required bipap initially, now weaned off Acute COPD exacerbation Hx of stage 4 severe COPD, Hx of chronic hypoxic respiratory failure on oxygen at home. Follows pulmDr. Florencia Found mold in house that's being taken out right now IV steroids day 2, IV azithromycin day 2, xopenex/atrovent q4h, pulmicort bid metaneb Procal 0.02 ngtd sputum culture, respiratory panel, legionella, mycolasma Pulmonology consult Dr. Don Active smoker Counseled on smoking cessation Nicotine patch Elevated troponin, likely type 2 nstemi Elevated BNP Mild elevation in LFT Hyponatremia, mild Chronic metabolic alklalosis Mild pulmonary vascular congestion on CXR. One dose of iv lasix 20 mg on 01/29 Telemetry Trend trops Cardiology consult Dr. Almaguer dvt proph lovenox Full Code, advance care planning discussed by me with patient previously, surrogate decision maker in chart Dispo - home in a couple of days once breathing improves. Severe COPD, exacerbation, so will take time possibly Saray Sanchez MD - 01/30/2020 9:00 AM CDT [facility] Cardiology progress note Date of Service: 01/30/2020 Mariana Turner is a 64 year old female hospitalized for TAY/COPD Excerebration. Feeling better. No new cardiac complaints noted. PHYSICAL EXAM Vitals: 01/30/20 0721 01/30/20 0742 01/30/20 0800 01/30/20 0900 BP: 134/74 Pulse: 126 105 Resp: 16 12 18 Temp: 36.9 C (98.5 F) TempSrc: Temporal Artery SpO2: 100% 100% 94% Weight: Height: General: no apparent distress HEENT: normocephalic atraumatic Neck: supple, no lymphadenopathy, no bruits, no JVD Lungs: clear to auscultation bilaterally Cardio: S1, S2, regular; no murmurs, rubs or gallops Abdomen: non-distended : not examined Rectal: not examined Extremities: no clubbing, cyanosis, or edema Skin: no rashes Neuro: no focal deficits Medications: I have reviewed the patient's medications; see Medication Reconciliation. Labs: I have reviewed the patient's labs. CBC BMP PT/INR WBC x10^3 (/uL) Date Value 01/12/2013 6.3 WBC (10*3/L) Date Value 01/30/2020 21.12 (H) NA Date Value 01/30/2020 136 mmol/L 01/12/2013 139 MMOL/L No results found for: PT PLT x10^3 (/uL) Date Value 01/12/2013 239 PLT (10*3/L) Date Value 01/30/2020 287 K Date Value 01/30/2020 4.6 mmol/L 01/12/2013 4.5 MMOL/L INR (no units) Date Value 01/29/2020 0.9 HGB Date Value 01/30/2020 13.1 g/dL 01/12/2013 16.5 G/DL (H) BUN Date Value 01/30/2020 13 mg/dL 01/12/2013 15 MG/DL HCT (%) Date Value 01/30/2020 40.6 01/12/2013 47.3 (H) CREATININE Date Value 01/30/2020 0.43 mg/dL (L) 01/12/2013 0.65 MG/DL LIPID PROFILE GLUCOSE Date Value 01/30/2020 156 mg/dL (H) 01/12/2013 106 MG/DL CHOL (mg/dL) Date Value 01/29/2020 215 (H) TSH LDL CHOL (mg/dL) Date Value 01/29/2020 81 TSH (mIU/L) Date Value 01/29/2020 0.25 (L) CARDIAC ENZYMES HDL (mg/dL) Date Value 01/29/2020 122 CK (U/L) Date Value 01/29/2020 36 TRIG (mg/dL) Date Value 01/29/2020 61 LFTs CK-MB (ng/mL) Date Value 01/12/2013 0.6 AST(SGOT) (U/L) Date Value 01/29/2020 69 (H) TROPONIN I (ng/mL) Date Value 01/29/2020 0.013 01/12/2013 0.006 ALT(SGPT) (U/L) Date Value 06/09/2019 49 ALTv (U/L) Date Value 01/29/2020 58 (H) No results found for: BNP LDL CHOL (mg/dL) Date Value 01/29/2020 81 Recent Labs 01/29/20 1341 TROPNI 0.013 Recent Labs 01/29/20 0845 TRIG 61 LDL CHOL (mg/dL) Date Value 01/29/2020 81 NT-proBNP (pg/mL) Date Value 01/29/2020 822 (H) 01/12/2013 186 (H) Echo 01/2020 Interpretation Summary A complete two-dimensional transthoracic echocardiogram was performed (2D, M- mode, Doppler and colorflow Doppler). There is no comparison study available. The study was technically difficult. Left ventricular systolic function is normal. Diastolic function is impaired relaxation. The right ventricle is normal in size and function. Insufficient Tricuspid regurgitation jet to estimate RVSP. ASSESSMENT AND PLAN Principal Problem: COPD with acute exacerbation Active Problems: COPD exacerbation Tobacco abuse Sinus tachycardia Elevated troponin I level Coronary artery calcification seen on CT scan TAY (dyspnea on exertion) Elevated brain natriuretic peptide (BNP) level Elevated Trop: Type 2 ME ECG shows no dynamic changes noted. Echo results reviewed with the patient. Tele monitoring: No arrhythmias. Elevated BNP: Echo results reviewed with the patient. Clinically doesn't appear to be volume overload. Hold IV diuretics for now. TAY NYHA Class III-IV: Improving. Acute hypoxic respiratory failure: COPD exacerbation: as per primary team. Coronary artery calcification noted in CT 2017 Recommend ASA 81 mg daily, LDL < 70 May need outpatient stress test once the respiratory symptoms improves. Dyslipidemia: Recommended to keep LDL < 70. Lifestyle modifications stressed. Rpt lipid panel in 3 months LDL CHOL (mg/dL) Date Value 01/29/2020 81 Teto Almaguer MD 01/30/2020 9:00 AM Animal Shelter Clerk, Division of Cardiology [facility] ETChris Palm LMSW - 01/29/2020 3:54 PM CDTSocial Work Note Sw made multiple attempts to complete SFA but patient is not answering the phone .Sw will complete SFA later. Chris Tan LMSW [place]ale Worker, Care Management Etta Perez - 01/29/2020 12:45 PM CDTRoutine rounding visit with Ms. Turner. She shared some of her life's narrative which included a desire for her granddaughter to be ok when she is no longer here. She requested prayer for her granddaughter and herself and departmental shipping clerk prayed according to requests. Ms. Turner expressed gratitude for the visit and the prayer. Camera Systems Engineer provided support through empathetic listening and the facilitation of story telling. Future departmental shipping clerk support is available if needed/wanted. Sugar Epstein MD - 01/29/2020 11:22 AM CDT Hospitalist Progress Note SUBJECTIVE: Called by RT due to respiratory distress Patient in significant distress, tripoding, sitting up Worsening dyspnea Some cough No leg edema, no chest pain CURRENT MEDICATIONS - reviewed. Current Facility-Administered Medications Medication Dose Route Frequency Last Rate Last Dose acetaminophen (TYLENOL) tablet 650 mg 650 mg Oral Q6HPRN budesonide (PULMICORT RESPULE) nebulizer solution 0.5 mg 0.5 mg Inhalation BID 0.5 mg at 01/29/20 0711 enoxaparin (LOVENOX) injection 40 mg 40 mg Subcutaneous DAILY 40 mg at 01/29/20 0846 fluticasone propion-salmeterol (ADVAIR) 250-50 mcg/dose inhalation disk 1 Puff 1 Puff Inhalation Q12H 1 Puff at 01/29/20 0728 ipratropium (ATROVENT) 0.02 % nebulizer solution 0.5 mg 0.5 mg Inhalation Q4H levalbuterol (XOPENEX) nebulizer solution 1.25 mg 1.25 mg Inhalation TIDPRN levalbuterol (XOPENEX) nebulizer solution 1.25 mg 1.25 mg Inhalation Q4H methylPREDNISolone sod succ (SOLU-MEDROL (PF)) injection 40 mg 40 mg Slow IV Push Q6H morpHINE injection 2 mg 2 mg Slow IV Push Q4HPRN nicotine (NICODERM) 14 mg/24 hr patch 1 Patch 1 Patch Topical Q24H 1 Patch at 01/29/20 0623 ondansetron (ZOFRAN (PF)) injection 4 mg 4 mg Slow IV Push Q6HPRN sodium chloride 7% (HYPER-MEDARDO) nebulizer solution 4 mL 4 mL Inhalation DAILY traMADol (ULTRAM) tablet 50 mg 50 mg Oral Q8HPRN PHYSICAL EXAM: BP 127/75 | Pulse 99 | Temp 36.6 C (97.9 F) (Temporal Artery) | Resp 24 | Ht 1.575 m (5' 2") | Wt 55.2 kg (121 lb 12.8 oz) | SpO2 98% | BMI 22.28 kg/m Temp: [36.4 C (97.5 F)-37 C (98.6 F)] Heart Rate (monitor): [101-104] Pulse: [91-107] Resp: [17-24] BP: (115-157)/(65-99) MAP (mmHg): [82-103] No intake or output data in the 24 hours ending 01/29/20 1123 Respiratory distress Anicteric sclera, oral mucosa clear Very poor air entry b/l, tachypneic RRR, nl s1s2 Abd soft NT No significant LE, no calf tenderness AAO, no gross deficits Skin warm and dry LABS/IMAGING - reviewed, pertinent results as below: CBC BMP PT/INR WBC x10^3 (/uL) Date Value 01/12/2013 6.3 WBC (10*3/L) Date Value 01/29/2020 10.52 NA Date Value 01/29/2020 133 mmol/L (L) 01/12/2013 139 MMOL/L No results found for: PT RBC x10^6 (/uL) Date Value 01/12/2013 5.17 RBC (10*6/L) Date Value 01/29/2020 4.49 K Date Value 01/29/2020 4.3 mmol/L 01/12/2013 4.5 MMOL/L INR (no units) Date Value 01/29/2020 0.9 PLT x10^3 (/uL) Date Value 01/12/2013 239 PLT (10*3/L) Date Value 01/29/2020 274 CALCIUM Date Value 01/29/2020 8.8 mg/dL 01/12/2013 9.5 MG/DL HGB Date Value 01/29/2020 14.2 g/dL 01/12/2013 16.5 G/DL (H) CL Date Value 01/29/2020 91 mmol/L (L) 01/12/2013 103 MMOL/L aPTT HCT (%) Date Value 01/29/2020 43.4 01/12/2013 47.3 (H) BUN Date Value 01/29/2020 7 mg/dL 01/12/2013 15 MG/DL APTT Patient (Seconds) Date Value 01/29/2020 26 CREATININE Date Value 01/29/2020 0.37 mg/dL (L) 01/12/2013 0.65 MG/DL IMAGING- Hospital Encounter on 01/28/20 XR CHEST 1 VW Narrative EXAM: XR CHEST 1 VW HISTORY: SOB COMPARISON: Chest radiograph 10/05/2019 FINDINGS: The lungs are emphysematous. Mild pulmonary vascular congestion is identified with trace left pleural effusion. No pneumothorax. The heart is mildly enlarged. No acute bony abnormalities are noted. Impression Mild pulmonary vascular congestion. Trace left pleural effusion. Emphysema. Preliminary Report Dictated by Resident: Von Car I, Leonardo Lainez MD., have reviewed this study and agree with the above report. ASSESSMENT/PLAN Mariana Turner is a 64 year old female with Acute on chronic hypoxic and hypercapneic respiratory failure. VBG done stat and reviewed. Started on bipap. Increased nebs. Transferred to ICU. Continue IMU status Acute COPD exacerbation Hx of stage 4 severe COPD, Hx of chronic hypoxic respiratory failure on oxygen at home. Follows pulmDr. Florencia IV steroids day 1, IV azithromycin day 1, xopenex/atrovent q4h, pulmicort bid Hypersal, metaneb, sputum culture, respiratory panel, legionella, mycolasma Pulmonology consult Dr. Don Repeat abg later in the day Active smoker Counseled on smoking cessation Nicotine patch Elevated troponin, likely type 2 nstemi Elevated BNP Mild elevation in LFT Hyponatremia, mild Chronic metabolic alklalosis Mild pulmonary vascular congestion on CXR Telemetry Trend trops Cardiology consult Dr. Almaguer dvt proph lovenox Full Code, advance care planning discussed by me with patient for 18 minutes, surrogate decision maker in chart Critical care time - 40 minutes ee Dee Fabian, PT - 01/29/2020 11:05 AM CDT 01/29/2020 PT Consult received, chart reviewed and evaluation deferred at this time. Patient with a change in status and required transfer to ICU for further management. PT will monitor and perform evaluation once appropriate. Thank you. Dee Dee Martins, PT [place] PT License [id number] [facility] Rehabilitation Services Department (phone) (fax) Etta Portillo - 01/29/2020 10:17 AM CDTAttempted routine visit - patient was asleep. documented in this encounter Plan of Treatment Date Type Specialty Care Team Description 05/06/2020 Office Visit Pulmonary Disease Bronwyn Don, DO [address] [place] [id number] Name Type Priority Associated Diagnoses Order S chedule CBC with Differential LAB Routine EVERY MORNING AT 0400 for 5 Occurrenc es starting 2019 until 0, 4 completed Basic Metabolic Panel (NA, LAB Routine E VERY MORNING AT 0400 K, CL, CO2, GLUCOSE, BUN, fo r 5 Occurrences CREATININE, CA) starting 05/2020 until 0, 4 completed Health Maintenance Due Date Last Done Comments [...] 10/07/2019, 10/10/2016 documented as of this encounter Procedures Procedure Name Priority Date/Time Associated Comments Diagnosis CBC WITH DIFFERENTIAL Routine 02/02/2020 3:56 Re sults for this AM CDT procedure are i n the results section. CBC WITH DIFFERENTIAL Routine 02/02/2020 3:56 Re sults for this AM CDT procedure are i n the results section. BASIC METABOLIC PANEL Routine 02/02/2020 3:56 Re sults for this (NA, K, CL, CO2, AM CDT procedure a re in GLUCOSE, BUN, the results CREATININE, CA) section. CBC WITH DIFFERENTIAL Routine 02/01/2020 6:18 Re sults for this AM CDT procedure are i n the results section. CBC WITH DIFFERENTIAL Routine 02/01/2020 6:18 Re sults for this AM CDT procedure are i n the results section. BASIC METABOLIC PANEL Routine 02/01/2020 6:18 Re sults for this (NA, K, CL, CO2, AM CDT procedure a re in GLUCOSE, BUN, the results CREATININE, CA) section. CBC WITH DIFFERENTIAL Routine 01/31/2020 5:30 Re sults for this AM CDT procedure are i n the results section. N-TERMINAL PRO-BNP Add-on 01/31/2020 5:30 Resul ts for this AM CDT procedure are i n the results section. CBC WITH DIFFERENTIAL Routine 01/31/2020 5:30 Re sults for this AM CDT procedure are i n the results section. BASIC METABOLIC PANEL Routine 01/31/2020 5:30 Re sults for this (NA, K, CL, CO2, AM CDT procedure a re in GLUCOSE, BUN, the results CREATININE, CA) section. HEPATIC FUNCTION PANEL Routine 01/31/2020 5:30 R esults for this (49097) AM CDT procedure are i n (ALB,T.PRO,BILI the results T,BU/BC,ALT,AST,ALK section. PHOS) ACUTE CARE VENOUS Routine 01/31/2020 5:24 Result s for this BLOOD GAS AM CDT procedure are i n the results section. CBC WITH DIFFERENTIAL Routine 01/30/2020 4:37 Re sults for this AM CDT procedure are i n the results section. CBC WITH DIFFERENTIAL Routine 01/30/2020 4:37 Re sults for this AM CDT procedure are i n the results section. BASIC METABOLIC PANEL Routine 01/30/2020 4:37 Re sults for this (NA, K, CL, CO2, AM CDT procedure a re in GLUCOSE, BUN, the results CREATININE, CA) section. ACUTE CARE VENOUS Routine 01/30/2020 4:28 Result s for this BLOOD GAS AM CDT procedure are i n the results section. SPUTUM CULTURE Routine 01/29/2020 8:43 Results f or this PM CDT procedure are i n the results section. [facility] Routine 01/29/2020 8:34 Resul ts for this ANTIGEN TST PM CDT procedure are i n the results section. RESPIRATORY PANEL BY GRICEL 01/29/2020 8:32 Res ults for this PCR PM CDT procedure are i n the results section. ECHO ROUTINE W/DOPPLER Routine 01/29/2020 3:33 Troponin level COLOR PM CDT elevated AC PANEL 20 + LACTIC Routine 01/29/2020 3:12 Res ults for this ACID PM CDT procedure are i n the results section. FREE T3 Add-on 01/29/2020 1:41 Results for this PM CDT procedure are i n the results section. MYCOPLASMA PNEUMONIAE Routine 01/29/2020 1:41 Re sults for this ANTIBODY, IGM PM CDT procedure are in the results section. FREE T4 Add-on 01/29/2020 1:41 Results for this PM CDT procedure are i n the results section. TROPONIN I Routine 01/29/2020 1:41 Results for this PM CDT procedure are i n the results section. FOLATE Routine 01/29/2020 1:41 Results for this PM CDT procedure are i n the results section. VITAMIN B12, LEVEL Routine 01/29/2020 1:41 Resul ts for this PM CDT procedure are i n the results section. PROCALCITONIN GRICEL 01/29/2020 8:45 Results fo r this AM CDT procedure are i n the results section. N-TERMINAL PRO-BNP Add-on 01/29/2020 8:45 Resul ts for this AM CDT procedure are i n the results section. ACUTE CARE VENOUS GRICEL 01/29/2020 8:45 Result s for this BLOOD GAS AM CDT procedure are i n the results section. LIPID PANEL Add-on 01/29/2020 8:45 Results for this (36924)(TOTAL AM CDT procedure are in CHOLESTEROL, the results TRIGLYCERIDES, HDL) section. THYROID STIMULATING Add-on 01/29/2020 8:45 Resu lts for this HORMONE AM CDT procedure are i n the results section. TROPONIN I Routine 01/29/2020 8:45 Results for this AM CDT procedure are i n the results section. TROPONIN I Routine 01/29/2020 4:26 Results for this AM CDT procedure are i n the results section. CREATINE KINASE Add-on 01/29/2020 4:26 Results for this AM CDT procedure are i n the results section. CORONAVIRUS COVID-19 STAT 01/29/2020 1:36 SOB (shortness o f Results for this TESTING AM CDT breath) procedure are i n the results section. XR CHEST 1 VW STAT 01/29/2020 12:40 SOB (shortness of Resul ts for this AM CDT breath) procedure are i n the results section. CBC WITH DIFFERENTIAL STAT 01/29/2020 12:33 SOB (shortness of Results for this AM CDT breath) procedure are i n the results section. N-TERMINAL PRO-BNP STAT 01/29/2020 12:33 SOB (shortness of Results for this AM CDT breath) procedure are i n the results section. ACTIVATED PARTIAL STAT 01/29/2020 12:33 SOB (shortness of R esults for this THRMPLAS LO AM CDT breath) procedure are i n the results section. PROTHROMBIN TIME / INR STAT 01/29/2020 12:33 SOB (shortness of Results for this AM CDT breath) procedure are i n the results section. GLYCOSYLATED Add-on 01/29/2020 12:33 Results for this HEMOGLOBIN (A1C) AM CDT procedure a re in the results section. CBC WITH DIFFERENTIAL Routine 01/29/2020 12:33 SOB (shortness of Results for this AM CDT breath) procedure are i n the results section. COMP. METABOLIC PANEL STAT 01/29/2020 12:33 SOB (shortness of Results for this (68721) AM CDT breath) procedure are i n the results section. TROPONIN I STAT 01/29/2020 12:33 SOB (shortness of Result s for this AM CDT breath) procedure are i n the results section. LIPASE STAT 01/29/2020 12:33 SOB (shortness of Result s for this AM CDT breath) procedure are i n the results section. EKG-12 LEAD STAT 01/29/2020 12:27 AM CDT EKG-12 LEAD Routine 01/29/2020 12:02 AM CDT documented in this encounter Results CBC WITH DIFFERENTIAL (02/02/2020 3:56 AM CDT) Pathologist Sig nature WBC 12.34 (H) 4.30 - 11.10 [facility] 10*3/L [facility] RBC 3.90 (L) 3.93 - 5.25 [facility] 10*6/L [facility] HGB 12.3 11.6 - 15.0 [facility] g/dL [facility] HCT 37.1 35.7 - 45.2 % [facility] MCV 95.1 80.6 - 95.[address] [facility] MCH 31.5 25.9 - 32.[address] [facility] MCHC 33.2 31.6 - 35.1 [facility] g/dL [facility] RDW-SD 51.1 (H) 39.0 - 49.[address] [facility] RDW-CV 14.6 12.0 - 15.5 % [facility] PLT 251 166 - 358 [facility] 10*3/L [facility] MPV 9.5 9.5 - 12.[address] [facility] NRBC/100 WBC 0.0 0.0 - 10.0 /100 [facility] WBCs [facility] NRBC x10^3 <0.01 10*3/L [facility] GRAN MAT (NEUT) % 75.4 % [facility] IMM GRAN % 0.70 % [facility] LYMPH % 15.5 % [facility] MONO % 8.1 % [facility] EOS % 0.2 % [facility] BASO % 0.1 % [facility] GRAN MAT x10^3(ANC) 9.31 (H) 1.88 - 7.09 [facility] 10*3/uL [facility] IMM GRAN x10^3 0.09 (H) 0.00 - 0.06 [facility] 10*3/uL [facility] LYMPH x10^3 1.91 1.32 - 3.29 [facility] 10*3/uL [facility] MONO x10^3 1.00 (H) 0.33 - 0.92 [facility] 10*3/uL [facility] EOS x10^3 <0.03 (L) 0.03 - 0.39 [facility] 10*3/uL [facility] BASO x10^3 <0.03 0.01 - 0.07 [facility] 10*3/uL [facility] Specimen Blood - ARM, LEFT Performing Organization Address City/State/Zipcode Phone Number [facility] CLIA: [id number], [address] [place], [place] [address] Basic Metabolic Panel (NA, K, CL, CO2, GLUCOSE, BUN, CREATININE, CA) (02/02/2020 3:56 AM CDT) [facility] NA 136 135 - 145 [facility] mmol/L [facility] K 4.0 3.5 - 5.0 [facility] mmol/L [facility] CL 98 98 - 108 mmol/L [facility] CO2 TOTAL 37 (H) 23 - 31 mmol/L [facility] AGAP 1 (L) 2 - 16 [facility] BUN 21 7 - 23 mg/dL [facility] GLUCOSE 91 70 - 110 mg/dL [facility] CREATININE 0.55 0.50 - 1.04 [facility] mg/dL [facility] CALCIUM 9.0 8.6 - 10.6 [facility] mg/dL [facility] eGFR Calculation 112.0 mL/min/1.73m2 [facility] (Non-) [facility] LABORATOR Y eGFR Calculation 135.7 mL/min/1.73m2 [facility] () [facility] Specimen Blood - ARM, LEFT Narrative Performed At [facility] Glomerular Filtration Rate (GFR) [facility] and Staging of Kidney Disease* + + +- + | GFR (mL/min/1.73 m2) | With Kidney Damage | Without Kidney Damage + + +- + | >90 | Stage one | Normal + + +- + | 60-89 | Stage two | Decreased GFR + + +- + | 30-59 | Stage three | Stage three + + +- + | 15-29 | Stage four | Stage four + + +- + | <15 (or dialysis) | Stage five | Stage five + + +- + *Each stage assumes the associated GFR level has been in effect for at least three months. Stages 1 to 5, with or without kidney disease, indicate chronic kidney disease. Notes: Determination of stages one and two (with eGFR >59mL/min/1.73 m2) requires estimation of kidney damage for at least three months as defined by structural or functional abnormalities of the kidney, manifested by either: Pathological abnormalities or Markers of kidney damage (including abnormalities in the composition of the blood or urine or abnormalities in imaging tests). Performing Organization Address City/State/Zipcode Phone Number [facility] CLIA: [id number], [address] [place], [place] [address] CBC WITH DIFFERENTIAL (02/01/2020 6:18 AM CDT) Pathologist Sig nature WBC 11.17 (H) 4.30 - 11.10 [facility] 10*3/L [facility] RBC 4.03 3.93 - 5.25 [facility] 10*6/L [facility] HGB 12.8 11.6 - 15.0 [facility] g/dL [facility] HCT 39.2 35.7 - 45.2 % [facility] MCV 97.3 (H) 80.6 - 95.[address] [facility] MCH 31.8 25.9 - 32.[address] [facility] MCHC 32.7 31.6 - 35.1 [facility] g/dL [facility] RDW-SD 52.6 (H) 39.0 - 49.[address] [facility] RDW-CV 14.6 12.0 - 15.5 % [facility] PLT 265 166 - 358 [facility] 10*3/L [facility] MPV 9.1 (L) 9.5 - 12.[address] [facility] NRBC/100 WBC 0.0 0.0 - 10.0 /100 [facility] WBCs [facility] NRBC x10^3 <0.01 10*3/L [facility] GRAN MAT (NEUT) % 93.7 % [facility] IMM GRAN % 0.80 % [facility] LYMPH % 3.8 % [facility] MONO % 1.6 % [facility] EOS % 0.0 % [facility] BASO % 0.1 % [facility] GRAN MAT x10^3(ANC) 10.46 (H) 1.88 - 7.09 [facility] 10*3/uL [facility] IMM GRAN x10^3 0.09 (H) 0.00 - 0.06 [facility] 10*3/uL [facility] LYMPH x10^3 0.43 (L) 1.32 - 3.29 [facility] 10*3/uL [facility] MONO x10^3 0.18 (L) 0.33 - 0.92 [facility] 10*3/uL [facility] EOS x10^3 <0.03 (L) 0.03 - 0.[address]uL [facility] BASO x10^3 <0.03 0.01 - 0.07 [address]uL [facility] Specimen Blood - HAND, LEFT Performing Organization Address City/State/Zipcode Phone Number [facility] CLIA: [id number], [address] [place] [id number] [address] Basic Metabolic Panel (NA, K, CL, CO2, GLUCOSE, BUN, CREATININE, CA) (02/01/2020 6:18 AM CDT) NA 139 135 - 145 [facility] mmol/L [facility] K 4.4 3.5 - 5.0 [facility] mmol/L [facility] CL 98 98 - 108 mmol/L [facility] CO2 TOTAL 39 (H) 23 - 31 mmol/L [facility] AGAP 2 2 - 16 [facility] BUN 18 7 - 23 mg/dL [facility] GLUCOSE 138 (H) 70 - 110 mg/dL [facility] CREATININE 0.47 (L) 0.50 - 1.04 [facility] mg/dL [facility] CALCIUM 9.3 8.6 - 10.6 [facility] mg/dL [facility] eGFR Calculation 134.3 mL/min/1.73m2 [facility] (Non-[facility] LABORATORY [place]) eGFR Calculation 162.7 mL/min/1.73m2 [facility] () [facility] Specimen Blood - HAND, LEFT Narrative Performed At [facility] Glomerular Filtration Rate (GFR) [facility] and Staging of Kidney Disease* + + +- + | GFR (mL/min/1.73 m2) | With Kidney Damage | Without Kidney Damage + + +- + | >90 | Stage one | Normal + + +- + | 60-89 | Stage two | Decreased GFR + + +- + | 30-59 | Stage three | Stage three + + +- + | 15-29 | Stage four | Stage four + + +- + | <15 (or dialysis) | Stage five | Stage five + + +- + *Each stage assumes the associated GFR level has been in effect for at least three months. Stages 1 to 5, with or without kidney disease, indicate chronic kidney disease. Notes: Determination of stages one and two (with eGFR >59mL/min/1.73 m2) requires estimation of kidney damage for at least three months as defined by structural or functional abnormalities of the kidney, manifested by either: Pathological abnormalities or Markers of kidney damage (including abnormalities in the composition of the blood or urine or abnormalities in imaging tests). Performing Organization Address [facility] Phone Number [facility] CLIA: [id number], [address] [place] [address] N-TERMINAL PRO-BNP (01/31/2020 5:30 AM CDT) Pathologist Sig nature NT-proBNP 532 (H) <=125 pg/mL [facility] Specimen Blood - HAND, LEFT Narrative Performed At Biotin has been reported to cause a negative [facility] bias, interpret results relative to patient's use of biotin. Performing Organization Address [facility] Cent[facility]ode Phone Number [facility] CLIA: [id number], [address] [place] [address] CBC WITH DIFFERENTIAL (01/31/2020 5:30 AM CDT) Pathologist Sig nature WBC 20.77 (H) 4.30 - 11.10 [facility] 10*3/L [facility] RBC 3.98 3.93 - 5.25 [facility] 10*6/L [facility] HGB 12.7 11.6 - 15.0 [facility] g/dL [facility] HCT 38.1 35.7 - 45.2 % [facility] MCV 95.7 (H) 80.6 - 95.[address] [facility] MCH 31.9 25.9 - 32.[address] [facility] MCHC 33.3 31.6 - 35.1 [facility] g/dL [facility] RDW-SD 50.6 (H) 39.0 - 49.[address] [facility] RDW-CV 14.3 12.0 - 15.5 % [facility] PLT 284 166 - 358 [facility] 10*3/L [facility] MPV 9.4 (L) 9.5 - 12.[address] [facility] NRBC/100 WBC 0.0 0.0 - 10.0 /100 [facility] WBCs [facility] NRBC x10^3 <0.01 10*3/L [facility] GRAN MAT (NEUT) % 91.2 % [facility] IMM GRAN % 1.00 % [facility] LYMPH % 3.1 % [facility] MONO % 4.6 % [facility] EOS % 0.0 % [facility] BASO % 0.1 % [facility] GRAN MAT x10^3(ANC) 18.95 (H) 1.88 - 7.09 [facility] 10*3/uL [facility] IMM GRAN x10^3 0.20 (H) 0.00 - 0.06 [facility] 10*3/uL [facility]ITAL [facility] LYMPH x10^3 0.64 (L) 1.32 - 3.29 [facility] 10*3/uL [facility] MONO x10^3 0.96 (H) 0.33 - 0.92 [facility] 10*3/uL [facility] EOS x10^3 <0.03 (L) 0.03 - 0.39 [facility] 10*3/uL [facility] BASO x10^3 <0.03 0.01 - 0.07 [facility] 10*3/uL [facility] Specimen Blood - HAND, LEFT Performing Organization Address City/State/Zipcode Phone Number [facility] CLIA: [id number], [address] [place], [place] [address] HEPATIC FUNCTION PANEL ([id number]) (ALB,T.PRO,BILI T,BU/BC,ALT,AST,ALK PHOS) (01/31/2020 5:30 AM CDT) Pathologist [facility] nature TOTAL BILI 0.3 0.1 - 1.1 mg/dL [facility] BILI UNCON 0.4 0.1 - 1.1 mg/dL [facility] BILI CONJ 0.0 0.0 - 0.3 mg/dL [facility] T PROTEIN 6.5 6.3 - 8.2 g/dL [facility] ALBUMIN 4.0 3.5 - 5.0 g/dL [facility] ALK PHOS 46 34 - 122 U/L [facility] ALTv 40 (H) 5 - 35 U/L [facility] AST(SGOT) 42 (H) 13 - 40 U/L [facility] Specimen Blood - HAND, LEFT Performing Organization Address City/State/Zipcode Phone Number [facility] CLIA: [id number], [address] [place] [place] [id number] Basic Metabolic Panel (NA, K, CL, CO2, GLUCOSE, BUN, CREATININE, CA) (01/31/2020 5:30 AM CDT) [facility] NA 139 135 - 145 [facility] mmol/L [facility] K 4.1 3.5 - 5.0 [facility] mmol/L [facility] CL 95 (L) 98 - 108 mmol/L [facility] CO2 TOTAL 39 (H) 23 - 31 mmol/L [facility] AGAP 5 2 - 16 [facility] BUN 18 7 - 23 mg/dL [facility] GLUCOSE 126 (H) 70 - 110 mg/dL [facility] CREATININE 0.53 0.50 - 1.04 [facility] mg/dL [facility] CALCIUM 9.6 8.6 - 10.6 [facility] mg/dL [facility] eGFR Calculation 116.9 mL/min/1.73m2 [facility] (Non[facility] [place]) eGFR Calculation 141.7 mL/min/1.73m2 [facility] () [facility] Specimen Blood - HAND, LEFT Narrative Performed At [facility] Filtration Rate (GFR) [facility] and Staging of Kidney Disease* + + +- + | GFR (mL/min/1.73 m2) | With Kidney Damage | Without Kidney Damage + + +- + | >90 | Stage one | Normal + + +- + | 60-89 | Stage two | Decreased GFR + + +- + | 30-59 | Stage three | Stage three + + +- + | 15-29 | Stage four | Stage four + + +- + | <15 (or dialysis) | Stage five | Stage five + + +- + *Each stage assumes the associated GFR level has been in effect for at least three months. Stages 1 to 5, with or without kidney disease, indicate chronic kidney disease. Notes: Determination of stages one and two (with eGFR >59mL/min/1.73 m2) requires estimation of kidney damage for at least three months as defined by structural or functional abnormalities of the kidney, manifested by either: Pathological abnormalities or Markers of kidney damage (including abnormalities in the composition of the blood or urine or abnormalities in imaging tests). Performing Organization Address [facility] Centercode Phone Number [facility] CLIA: [id number], [address] [address] 15 LABORATORY [facility] ACUTE CARE VENOUS BLOOD GAS (01/31/2020 5:24 AM CDT) [facility] PH 7.40 7.32 - 7.42 [facility] PCO2 QUINCY 63 (H) 41 - [address] [facility] PO2 QUINCY 43 (H) 25 - [address] [facility] HCO3 QUINCY 38 (H) 24 - 28 mEq/L [facility] AC VBE(BEAKER) 10.2 mEq/L [facility] Specimen Blood - HAND, LEFT Performing Organization Address [facility] Centercode Phone Number [facility] CLIA: [id number], [address] [address] 15 [facility] CBC WITH DIFFERENTIAL (01/30/2020 4:37 AM CDT) [facility] WBC 21.12 (H) 4.30 - 11.10 [facility] 10*3/L [facility] RBC 4.18 3.93 - 5.25 [facility] 10*6/L [facility] HGB 13.1 11.6 - 15.0 [facility] g/dL HOSPITAL [facility] HCT 40.6 35.7 - 45.2 % [facility] MCV 97.1 (H) 80.6 - 95.[address] [facility] MCH 31.3 25.9 - 32.[address] [facility] MCHC 32.3 31.6 - 35.1 [facility] g/dL HOSPITAL [facility] RDW-SD 51.1 (H) 39.0 - 49.[address] [facility] RDW-CV 14.2 12.0 - 15.5 % [facility] PLT 287 166 - 358 [facility] 10*3/L [facility] MPV 9.7 9.5 - 12.[address] [facility] NRBC/100 WBC 0.0 0.0 - 10.0 /100 [facility] WBCs [facility] NRBC x10^3 <0.01 10*3/L [facility] GRAN MAT (NEUT) % 94.0 % [facility] IMM GRAN % 1.00 % [facility] LYMPH % 2.1 % [facility] MONO % 2.7 % [facility] EOS % 0.0 % [facility] BASO % 0.2 % [facility] GRAN MAT x10^3(ANC) 19.85 (H) 1.88 - 7.09 [facility] 10*3/uL HOSPITAL [facility] IMM GRAN x10^3 0.21 (H) 0.00 - 0.06 [facility] 10*3/uL [facility] LYMPH x10^3 0.44 (L) 1.32 - 3.29 [facility] 10*3/uL [facility]ITAL [facility] MONO x10^3 0.58 0.33 - 0.92 [facility] 10*3/uL H[facility]ITAL [facility] EOS x10^3 <0.03 (L) 0.03 - 0.39 [facility] 10*3/uL [facility] BASO x10^3 0.04 0.01 - 0.07 [facility] 10*3/uL [facility] Specimen Blood - HAND, LEFT Performing Organization Address City/State/Zipcode Phone Number [facility] CLIA: [id number], [address] [place] [address] Basic Metabolic Panel (NA, K, CL, CO2, GLUCOSE, BUN, CREATININE, CA) (01/30/2020 4:37 AM CDT) NA 136 135 - 145 [facility] mmol/L [facility] K 4.6 3.5 - 5.0 [facility] mmol/[facility] CL 94 (L) 98 - 108 mmol/L [facility] CO2 TOTAL 35 (H) 23 - 31 mmol/L [facility] AGAP 7 2 - 16 [facility] BUN 13 7 - 23 mg/dL [facility] GLUCOSE 156 (H) 70 - 110 mg/dL [facility] CREATININE 0.43 (L) 0.50 - 1.04 [facility] mg/dL [facility] CALCIUM 9.3 8.6 - 10.6 [facility] mg/dL [facility] eGFR Calculation 148.8 mL/min/1.73m2 [facility] (Non[facility] LABORATORY [place]) eGFR Calculation 180.3 mL/min/1.73m2 [facility] () [facility] Specimen Blood - HAND, LEFT Narrative Performed At Association of Glomerular Filtration Rate (GFR) [facility] and Staging of Kidney Disease* + + +- + | GFR (mL/min/1.73 m2) | With Kidney Damage | Without Kidney Damage + + +- + | >90 | Stage one | Normal + + +- + | 60-89 | Stage two | Decreased GFR + + +- + | 30-59 | Stage three | Stage three + + +- + | 15-29 | Stage four | Stage four + + +- + | <15 (or dialysis) | Stage five | Stage five + + +- + *Each stage assumes the associated GFR level has been in effect for at least three months. Stages 1 to 5, with or without kidney disease, indicate chronic kidney disease. Notes: Determination of stages one and two (with eGFR >59mL/min/1.73 m2) requires estimation of kidney damage for at least three months as defined by structural or functional abnormalities of the kidney, manifested by either: Pathological abnormalities or Markers of kidney damage (including abnormalities in the composition of the blood or urine or abnormalities in imaging tests). Performing Organization Address City/State/Zipcode Phone Number [facility] CLIA: [id number], [address] [place], [place] [address] ACUTE CARE VENOUS BLOOD GAS (01/30/2020 4:28 AM CDT) Pathologist Sig nature PH 7.40 7.32 - 7.42 [facility] PCO2 QUINCY 59 (H) 41 - [address] [facility] PO2 QUINCY 38 25 - [address] [facility] HCO3 QUINCY 36 (H) 24 - 28 mEq/L [facility] AC VBE(BEAKER) 8.5 mEq/L [facility] Specimen Blood - ARM, LEFT Performing Organization Address City/[facility]/Zipcode Phone Number [facility] CLIA: [id number], [address] [place], [place] [address] SPUTUM CULTURE (01/29/2020 8:43 PM CDT) SPUTUM CULTURE Specimen cellular [facility] elements do not SERVICES represent lower respiratory tract. Specimen rejected for routine bacterial culture. Suggest reorder and recollection. Gram stain Numerous Epithelial [facility] cells SERVICES Specimen Sputum - SPUTUM, INDUCED Performing Organization Address City/[facility] Cent[facility]ode Phone Number [facility] SERVICES CLIA: [id number], [address] [place] [address] [facility] [place] URINARY ANTIGEN TST (01/29/2020 8:34 PM CDT) Pathologist Sig [facility] Legionella Urinary Negative Negative [facility] Antigen SERVICES Specimen Urine - URINE, CLEAN CATCH Narrative Performed At Negative for L. pneumophilia serogroup I antigen in ur ine [facility] SERVICES suggesting no recent or current infection. Infection d ue to Legionella cannot be ruled out since other serogroups and species may cause disease. Furthermore, antigens may n ot be present in urine during early stage of infection, or t he level of antigen present in urine may be below the det ection limit of the test. Performing Organization Address City/[facility]/Zipcode Phone Number [facility] SERVICES CLIA: [id number], [address] [place] [address] [facility] RESPIRATORY PANEL BY PCR (01/29/2020 8:32 PM CDT) Pathologist Sig nature Adenovirus Negative Negative [facility] SERVICES Coronavirus HKU1 Negative Negative [facility] SERVICES Coronavirus NL63 Negative Negative [facility] SERVICES Coronavirus 229E Negative Negative [facility] SERVICES Coronavirus OC43 Negative Negative [facility] SERVICES Human Metapneumovirus Negative Negative [facility] SERVICES Human Negative Negative [facility] Rhinovirus/Enterovirus SERVICES Influenza A Negative Negative [facility] SERVICES Influenza B Negative Negative [facility] SERVICES Parainfluenza Virus 1 Negative Negative [facility] SERVICES Parainfluenza Virus 2 Negative Negative [facility] SERVICES Parainfluenza Virus 3 Negative Negative [facility] SERVICES Parainfluenza Virus 4 Negative Negative [facility] SERVICES Respiratory Syncytial Negative Negative [facility] Virus SERVICES Bordetella parapertussis Negative Negative [facility] SERVICES Bordetella pertussis Negative Negative [facility] SERVICES Chlamydia pneumoniae Negative Negative [facility] SERVICES Mycoplasma pneumoniae Negative Negative [facility] SERVICES Specimen Swab - NASOPHARYNGEAL SWAB Narrative Performed At Negative: [facility] SERVICES A negative result does not rule-out infection. This assay does not test for all potential infectio us agents. Positive: A positive test result does not necessarily indicate t he presence of viable organism. Performing Organization Address City/State/Zipcode Phone Number [facility] SERVICES CLIA: [id number], [address] [facility] AC PANEL 20 + LACTIC ACID 2 pm (01/29/2020 3:12 PM CDT) Pathologist Sig nature PH 7.33 (L) 7.35 - 7.45 [facility] PCO2 65 (H) 35 - [address] [facility] PO2 75 (L) 80 - [address] [facility] HCO3 33 (H) 22 - 26 mEq/L [facility] BE 5.1 (H) -3.0 - 3.0 mEq/L [facility] THB 14.5 12.0 - 16.0 g/dL [facility] %O2HB 92.5 (L) 94.0 - 99.0 % [facility] %COHB ART 2.0 (H) 0.0 - 1.5 % [facility] %METHB ART 0.5 0.4 - 1.5 % [facility] VOL%O2 ART 18.9 15.0 - 23.0 % [facility] NA 133 (L) 135 - 145 mmol/L [facility] K+ 4.7 3.5 - 5.0 mmol/L [facility] AC CA IONZ 4.70 4.50 - 5.30 mg/dL [facility] GLUCOSE 249 (H) 70 - 110 mg/dL [facility] LACTIC ACID 1.17 0.50 - 2.20 mmol/L [facility] Specimen Blood - ARTERIAL Performing Organization Address [facility] Phone Number [facility] CLIA: [id number], [address] [place], [place] [address] FREE T4 (01/29/2020 1:41 PM CDT) Pathologist Sig nature FREE T4 0.78 0.78 - 2.20 ng/dL [facility] Specimen Blood - ARM, LEFT Performing Organization Address [facility] Phone Number [facility] CLIA: [id number], [address] [phone] [address] FREE T3 (01/29/2020 1:41 PM CDT) Pathologist Sig nature FREE T3 2.59 (L) 2.77 - 5.27 pg/mL [facility] Specimen Blood - ARM, LEFT Performing Organization Address [facility] Phone Number [facility] CLIA: [id number], [address] FOLATE (01/29/2020 1:41 PM CDT) FOLATE SER >20.0 (H)Comment: 3.0 - 20.0 [facility] Biotin has been ng/mL SERVICES reported to cause a positive bias, interpret results relative to patient's use of biotin. Specimen Blood - ARM, LEFT Performing Organization Address [facility] Phone Number [facility] SERVICES CLIA: [id number], [address] [place], [place] [address] [facility] VITAMIN B12, LEVEL (01/29/2020 1:41 PM CDT) Pathologist Sig nature VIT B12 431 240 - 930 pg/mL [facility] SERVICES Specimen Blood - ARM, LEFT Narrative Performed At Biotin has been reported to cause a positive bias, int erpret [facility] SERVICES results relative to patient's use of biotin. Performing Organization Address City/State/Zipcode Phone Number [facility] SERVICES CLIA: [id number], [address] [place], [place] [address] [facility] MYCOPLASMA PNEUMONIAE ANTIBODY, IGM (01/29/2020 1:41 PM CDT) Pathologist Sig nature Mycoplasma IGM 0.03 <=0.76 U/L [facility] Comment: INTERPRETIVE INFORMATION: Mycoplasma pneumoniae Ab, IgM 0.76 U/L or less .......... Negative: No clinically significa nt amount of M. pneumo niae IgM antibody detected. 0.77 - 0.95 U/L ........... Low Positive: M. pneumo niae- specific IgM presumptively detected. Collection of a follow-up sample in 1-2 weeks is recommended to assure re activity. 0.96 U/L or greater ....... Positive: Highly signif icant amount of M. pneumoniae- specific IgM antibody detected. However, low levels of IgM an tibodies may occasiona lly persist for more than 12 m onths post-infection. Performed by [employer], [address] [place] [address] [email or web address], Michael Penaloza MD, Lab. Director Specimen Blood - ARM, LEFT Performing Organization Address City/[facility]/Zipcode Phone Number [facility] [address] [place] [address] TROPONIN I (01/29/2020 1:41 PM CDT) Pathologist Sig nature TROPONIN I 0.013 <=0.034 ng/mL [facility] Specimen Blood - ARM, LEFT Narrative Performed At Equal or Less than 0.034 ng/ml---Normal [facility] Note: Cardiac troponin begins to rise 3-4 hours after the onset of ischemia. Repeat in 4-6 hours if the sample was drawn within 3-4 hours of the onset of the symptom and found normal. Between 0.035 and 0.120 ng/mL--- Borderline. Questionable myocardial injury or necros is Note: Serial measurement may be necessary to confirm or exclude the diagnosis of myocardial injury or necrosis; Clinical correlation (symptoms, EKGs, imaging studies, and others) required; Repeat in 4-6 hours if clinically indicated. Equal or Higher than 0.121 ng/mL---Abnormal. Myocardial Injury or Necrosis Likely Biotin has been reported to cause a negative bias, interpret results relative to patient's use of biotin. Performing Organization Address [facility] Phone Number [facility] CLIA: [id number], [address] [address] THYROID STIMULATING HORMONE (01/29/2020 8:45 AM CDT) Pathologist Sig nature TSH 0.25 (L)Comment: 0.45 - 4.70 [facility] Biotin has been mIU/L HOSPITAL LAB[facility]ORY reported to cause a negative bias, interpret results relative to patient's use of biotin. Specimen Blood - ARM, LEFT Performing Organization Address [facility] Phone Number [facility] CLIA: [id number], [address] [address] LIPID PANEL ([id number])(TOTAL CHOLESTEROL, TRIGLYCERIDES, HDL) (01/29/2020 8:45 AM CDT) Pathologist Sig nature CHOL 215 (H) 120 - 200 mg/dL [facility] HDL 122 >50 mg/dL [facility] HDLC RATIO 1.8 <=4.5 [facility] TRIG 61 30 - 170 mg/dL [facility] LDL CHOL 81 <=160 mg/dL [facility] VLDL 12 5 - 60 mg/dL [facility] Specimen Blood - ARM, LEFT Performing Organization Address [facility] Phone Number [facility] CLIA: [id number], [address] N-TERMINAL PRO-BNP (01/29/2020 8:45 AM CDT) Pathologist Sig nature NT-proBNP 822 (H) <=125 pg/mL [facility] Specimen Blood - ARM, LEFT Narrative Performed At Biotin has been reported to cause a negative [facility] bias, interpret results relative to patient's use of biotin. Performing Organization Address [facility] Centercode Phone Number [facility] CLIA: [id number], [address] [address] 15 [facility] ACUTE CARE VENOUS BLOOD GAS (01/29/2020 8:45 AM CDT) Pathologist Sig nature PH 7.25 (L) 7.32 - 7.42 [facility] PCO2 QUINCY 74 (H) 41 - [address] [facility] PO2 QUINCY 67 (HH) 25 - [address] [facility] HCO3 QUINCY 31 (H) 24 - 28 mEq/L [facility] AC VBE(BEAKER) 1.7 mEq/L [facility] Specimen Blood - ARM, LEFT Performing Organization Address [facility] Phone Number [facility] CLIA: [id number], [address] [address] 15 [facility] PROCALCITONIN (01/29/2020 8:45 AM CDT) Pathologist Sig nature Procalcitonin 0.03 <0.07 ng/mL [facility] SERVICES Specimen Blood - ARM, LEFT Narrative Performed At INTERPRETATION OF PROCALCITONIN RESULTS IN ADULTS >= 1 8 [facility] YEARS OF AGE Initiation and discontinuation of antibiotics on patie nts with suspected or confirmed Lower Respiratory Tract Infection in Adults >= 18 years of age. + + + +----- ------ + |Procalcitonin |Interpretation |Antibiotic |Considerations |ng/mL | |recommend ation | + + + +----- ------ + | <0.1 | Bacterial | Strongly | | | infection very | discouraged | Overruling: | | unlikely | | Clinically unstable + + + + H igh risk for adverse | <0.25 | Bacterial | Discouraged | outcome | | infection | | SEE IMPORTANT NOTE | | unlikely | | + + + +----- ------ + | >=0.25 | Bacterial | Encouraged | | | infection | | | | likely | | Consider treatment failure + + + + if l evels does not decrease | >0.5 | Bacterial | Strongly | appropriately | | infection very | encouraged | | | likely | | + + + +----- ------ + Discontinuation of antibiotics in high-acuity patients with suspected or confirmed sepsis in Adults >= 18 years of age. + + + +----- ------ + |Procalcitonin |Interpretation |Antibiotic |Considerations |ng/mL | |recommend ation | + + + +----- ------ + | <0.25 | Bacterial | Strongly | | | infection very | discouraged | Overruling: | | unlikely | | Clinically unstable + + + + H igh risk for adverse | <0.5 or drop | Bacterial | Discouraged | outcome | >80% from | infection | | SEE IMPORTANT NOTE | highest PCT | unlikely | | | level | | | + + + +----- ------ + | >=0.5 | Bacterial | Encouraged | | | infection | | | | likely | | Consider treatment failure + + + + if l evels does not decrease | >1.0 | Bacterial | Strongly | appropriately | | infection very | encouraged | | | likely | | + + + +----- ------ + Percentage of drop of Procalcitonin calculation for Discontinuation of antibiotics in high-acuity patients with suspected or confirmed sepsis in Adults >= 18 years of age. Procalcitonin highest{}-Procalcitonin current{} Delta Procalcitonin = x100% Procalcitonin current {} IMPORTANT NOTE: Procalcitonin may be elevated without bacterial infection by physiologic stress related to t rauma, ortiz, chronic dialysis, metastatic cancer, surgery in the past seven days, malaria, some fungal infections, and some forms of vasculitis. The interpretation algorithm may not apply to patients with immunosuppression (equivalent o f >10 mg of prednisone daily), HIV with CD4 cell count < 350 cells/mm3, active malignancy on systemic chemotherapy, solid organ transplant or hematopoietic stem cell transplant ation, or hospital acquired pneumonia. Additionally, some cli nical trials of procalcitonin have excluded patients with sh ock requiring vasopressor use, acute respiratory failure requiring mechanical ventilation, or those with known lung abscess/empyema. For further information please refer to: [email or web address] Performing Organization Address City/State/Zipcode Phone Number [facility] CLIA: [id number], [address] [place], [place] [address] [facility] TROPONIN I (01/29/2020 8:45 AM CDT) Pathologist Sig nature TROPONIN I 0.022 <=0.034 ng/mL [facility] Specimen Blood - ARM, LEFT Narrative Performed At Equal or Less than 0.034 ng/ml---Normal [facility] Note: Cardiac troponin begins to rise 3-4 hours after the onset of ischemia. Repeat in 4-6 hours if the sample was drawn within 3-4 hours of the onset of the symptom and found normal. Between 0.035 and 0.120 ng/mL--- Borderline. Questionable myocardial injury or necros is Note: Serial measurement may be necessary to confirm or exclude the diagnosis of myocardial injury or necrosis; Clinical correlation (symptoms, EKGs, imaging studies, and others) required; Repeat in 4-6 hours if clinically indicated. Equal or Higher than 0.121 ng/mL---Abnormal. Myocardial Injury or Necrosis Likely Biotin has been reported to cause a negative bias, interpret results relative to patient's use of biotin. Performing Organization Address [facility] Phone Number [facility] CLIA: [id number], [address] [address] [address] CREATINE KINASE (01/29/2020 4:26 AM CDT) Pathologist Sig nature CK 36 33 - 194 U/L [facility] Specimen Blood - HAND, LEFT Performing Organization Address [facility] Phone Number [facility] CLIA: [id number], [address] [address] [address] TROPONIN I (01/29/2020 4:26 AM CDT) Pathologist Sig nature TROPONIN I 0.031 <=0.034 ng/mL [facility] Specimen Blood - HAND, LEFT Narrative Performed At Equal or Less than 0.034 ng/ml---Normal [facility] Note: Cardiac troponin begins to rise 3-4 hours after the onset of ischemia. Repeat in 4-6 hours if the sample was drawn within 3-4 hours of the onset of the symptom and found normal. Between 0.035 and 0.120 ng/mL--- Borderline. Questionable myocardial injury or necros is Note: Serial measurement may be necessary to confirm or exclude the diagnosis of myocardial injury or necrosis; Clinical correlation (symptoms, EKGs, imaging studies, and others) required; Repeat in 4-6 hours if clinically indicated. Equal or Higher than 0.121 ng/mL---Abnormal. Myocardial Injury or Necrosis Likely Biotin has been reported to cause a negative bias, interpret results relative to patient's use of biotin. Performing Organization Address [facility] Phone Number [facility] CLIA: [id number], [address] [address] [address] CORONAVIRUS COVID-19 TESTING (01/29/2020 1:36 AM CDT) Pathologist Sig nature SARS-CoV-[address] [facility] Specimen Swab - NASOPHARYNGEAL SWAB Narrative Performed At [facility] NOW COVID-19 Assay is an isothermal nucleic [facility] acid amplification test intended for the qualitative detection of nucleic acid from SARS-CoV-2 viral RNA in nasopharyngeal (HOSPICE FELLOW) specimens. It is used under Emergency Use Authorization (EUA) by FDA. The limit of detection (LOD) of the assay is 125 Genome Equivalents/mL. A positive result is indicative of the presence of SARS-CoV-2 RNA. Clinical correlation with patient history and other diagnostic information is necessary to determine patient infection status. A negative (Not Detected) result does not preclude SARS-CoV-2 infection. Clinical correlation with patient history and other diagnostic information should be used in patient management decisions. Invalid: Please collect a new specimen for repeat patient testing if clinically indicated. Performing Organization Address City/State/Zipcode Phone Number [facility] CLIA: [id number], [address] [place] [address] [address] [facility] [address] XR CHEST 1 VW (01/29/2020 12:40 AM CDT) Specimen Impressions Performed At PACS/VR/DOSE Mild pulmonary vascular congestion. Trace left pleural effusion. Emphysema. Preliminary Report Dictated by Resident: Leonardo Mayo MD., have reviewed this study and agree with the above report. Narrative Performed At EXAM: XR CHEST 1 VW PACS/VR/DOSE HISTORY: SOB COMPARISON: Chest radiograph 10/05/2019 FINDINGS: The lungs are emphysematous. Mild pulmon simon vascular congestion is identified with trace left pleural effus ion. No pneumothorax. The heart is mildly enlarged. No acute b sohan abnormalities are noted. Procedure Note [facility], Radiant Results Inft User - 2019 7:54 AM CDT EXAM: XR CHEST 1 VW HISTORY: SOB COMPARISON: Chest radiograph 10/05/2019 FINDINGS: The lungs are emphysematous. Mild pulmon simon vascular congestion is identified with trace left pleural effus ion. No pneumothorax. The heart is mildly enlarged. No acute b sohan abnormalities are noted. IMPRESSION Mild pulmonary vascular congestion. Trace left pleural effusion. Emphysema. Preliminary Report Dictated by Resident: Leonardo Mayo MD., have reviewed th is study and agree with the above report. Performing Organization Address City/State/Zipcode Phone Number PACS/VR/DOSE GLYCOSYLATED HEMOGLOBIN (A1C) (01/29/2020 12:33 AM CDT) [facility] HGB A1C 5.5 4.0 - 6.0 % NGSP [facility] Specimen Blood - VENOUS Narrative Performed At %A1C (NGSP) Interpretation (ADA) [facility] 4.8-5.6 Normal or (Non-Diabetic Ra nge) 5.7-6.4 Increased Risk (Pre-Diabet ic) >6.5 Diabetes Indicated Performing Organization Address City/State/Zipcode Phone Number [facility] CLIA: [id number], [address] [place], [place] [address] CBC WITH DIFFERENTIAL (01/29/2020 12:33 AM CDT) Pathologist Sig nature WBC 10.52 4.30 - 11.10 [facility] 10*3/L [facility] RBC 4.49 3.93 - 5.25 [facility] 10*6/L [facility] HGB 14.2 11.6 - 15.0 [facility] g/dL [facility] HCT 43.4 35.7 - 45.2 % [facility] MCV 96.7 (H) 80.6 - 95.[address] [facility] MCH 31.6 25.9 - 32.[address] [facility] MCHC 32.7 31.6 - 35.1 [facility] g/dL [facility] RDW-SD 50.6 (H) 39.0 - 49.[address] [facility] RDW-CV 14.3 12.0 - 15.5 % [facility] PLT 274 166 - 358 [facility] 10*3/L [facility] MPV 9.0 (L) 9.5 - 12.[address] [facility] NRBC/100 WBC 0.0 0.0 - 10.0 /100 [facility] WBCs [facility] NRBC x10^3 <0.01 10*3/L [facility] GRAN MAT (NEUT) % 75.8 % [facility] IMM GRAN % 0.60 % [facility] LYMPH % 15.7 % [facility] MONO % 6.5 % [facility] EOS % 1.0 % [facility] BASO % 0.4 % [facility] GRAN MAT x10^3(ANC) 7.99 (H) 1.88 - 7.09 [facility] 10*3/uL HOSPITAL LABORATORY IMM GRAN x10^3 0.06 0.00 - 0.06 [facility] 10*3/uL HOSPITAL LAB[facility]ORY LYMPH x10^3 1.65 1.32 - 3.29 [facility] 10*3/uL HOSPITAL [facility] MONO x10^3 0.68 0.33 - 0.92 [facility] 10*3/uL HOSPITAL LAB[facility] EOS x10^3 0.10 0.03 - 0.39 [facility] 10*3/uL HOSPITAL [facility] BASO x10^3 0.04 0.01 - 0.07 [facility] 10*3/uL [facility] Specimen Blood - VENOUS Performing Organization Address City/[facility] Phone Number [facility] CLIA: [id number], [address] N-TERMINAL PRO-BNP (01/29/2020 12:33 AM CDT) Pathologist Sig nature NT-proBNP 695 (H) <=125 pg/mL [facility] Specimen Blood - VENOUS Narrative Performed At Biotin has been reported to cause a negative [facility] bias, interpret results relative to patient's use of biotin. Performing Organization Address [facility] Phone Number [facility] CLIA: [id number], [address] LIPASE, SERUM (01/29/2020 12:33 AM CDT) Pathologist Sig nature LIPASE 33 0 - 220 U/L [facility] Specimen Blood - VENOUS Performing Organization Address City/[facility] Cent[facility] Phone Number [facility] CLIA: [id number], [address] COMP. METABOLIC PANEL ([id number]) (01/29/2020 12:33 AM CDT) NA 133 (L) 135 - 145 [facility] mmol/L [facility] K 4.3 3.5 - 5.0 [facility] mmol/L [facility] CL 91 (L) 98 - 108 mmol/L [facility] CO2 TOTAL 35 (H) 23 - 31 mmol/L [facility] AGAP 7 2 - 16 [facility] BUN 7 7 - 23 mg/dL [facility] GLUCOSE 105 70 - 110 mg/dL [facility] CREATININE 0.37 (L) 0.50 - 1.04 [facility] mg/dL [facility] TOTAL BILI 0.4 0.1 - 1.1 mg/dL [facility] CALCIUM 8.8 8.6 - 10.6 [facility] mg/dL [facility] T PROTEIN 7.3 6.3 - 8.2 g/dL [facility] ALBUMIN 4.5 3.5 - 5.0 g/dL [facility] ALK PHOS 62 34 - 122 U/L [facility] ALTv 58 (H) 5 - 35 U/L [facility] AST(SGOT) 69 (H) 13 - 40 U/L [facility] eGFR Calculation 177.0 mL/min/1.73m2 [facility] (Non-[facility] LABORATORY [place]) eGFR Calculation 214.5 mL/min/1.73m2 [facility] () [facility] Specimen Blood - VENOUS Narrative Performed At Association of Glomerular Filtration Rate (GFR) [facility] and Staging of Kidney Disease* + + +- + | GFR (mL/min/1.73 m2) | With Kidney Damage | Without Kidney Damage + + +- + | >90 | Stage one | Normal + + +- + | 60-89 | Stage two | Decreased GFR + + +- + | 30-59 | Stage three | Stage three + + +- + | 15-29 | Stage four | Stage four + + +- + | <15 (or dialysis) | Stage five | Stage five + + +- + *Each stage assumes the associated GFR level has been in effect for at least three months. Stages 1 to 5, with or without kidney disease, indicate chronic kidney disease. Notes: Determination of stages one and two (with eGFR >59mL/min/1.73 m2) requires estimation of kidney damage for at least three months as defined by structural or functional abnormalities of the kidney, manifested by either: Pathological abnormalities or Markers of kidney damage (including abnormalities in the composition of the blood or urine or abnormalities in imaging tests). Performing Organization Address City/State/Zipcode Phone Number [facility] CLIA: [id number], [address] [place], [place] [address] PROTHROMBIN TIME / INR (01/29/2020 12:33 AM CDT) PROTIME PATIENT 11.9 (L) 12.0 - 14.7 [facility] LABORATORY INR 0.9Comment: Normal [facility] INR <1.1; Warfarin [facility] Therapeutic range LABORATORY 2.0 to 3.0 or 2.5 to 3.5, depending upon the indications. Specimen Blood - VENOUS Performing Organization Address [facility] Cent[facility]ode Phone Number [facility] CLIA: [id number], [address] aPTT (01/29/2020 12:33 AM CDT) Pathologist Sig nature APTT Patient 26 23 - [address] [facility] Specimen Blood - VENOUS Narrative Performed At The [facility] patient population mean normal value [facility] for aPTT is 30 seconds. Performing Organization Address [facility] Phone Number [facility] CLIA: [id number], [address] TROPONIN I (01/29/2020 12:33 AM CDT) [facility] nature TROPONIN I 0.037 (H) <=0.034 ng/mL [facility] Specimen Blood - VENOUS Narrative Performed At Equal or Less than 0.034 ng/ml---Normal [facility] Note: Cardiac troponin begins to rise 3-4 hours after the onset of ischemia. Repeat in 4-6 hours if the sample was drawn within 3-4 hours of the onset of the symptom and found normal. Between 0.035 and 0.120 ng/mL--- Borderline. Questionable myocardial injury or necros is Note: Serial measurement may be necessary to confirm or exclude the diagnosis of myocardial injury or necrosis; Clinical correlation (symptoms, EKGs, imaging studies, and others) required; Repeat in 4-6 hours if clinically indicated. Equal or Higher than 0.121 ng/mL---Abnormal. Myocardial Injury or Necrosis Likely Biotin has been reported to cause a negative bias, interpret results relative to patient's use of biotin. Performing Organization Address City/State/Zipcode Phone Number [facility] CLIA: [id number], [address] [place], [place] [address] documented in this encounter Visit Diagnoses Diagnosis COPD with acute exacerbation - Primary Obstructive chronic bronchitis with exac erbation SOB (shortness of breath) Shortness of breath Troponin level elevated Other abnormal blood chemistry Suspected 2019 Novel Coronavirus Infecti on Tobacco use disorder, continuous Tobacco use disorder Sinus tachycardia Other specified cardiac dysrhythmias Tobacco abuse Tobacco use disorder Elevated troponin I level Other abnormal blood chemistry Coronary artery calcification seen on CT scan TAY (dyspnea on exertion) Other dyspnea and respiratory abnormalit y COPD exacerbation Obstructive chronic bronchitis with exac erbation Elevated brain natriuretic peptide (BNP) level Other nonspecific findings on examinatio n of blood documented in this encounter Administered Medications Medication Order MAR Action Action Date Dose Rate Site acetaminophen (TYLENOL) tablet 650 mg 650 mg, Oral, Q6HPRN, Starting Sat01/29/20 at 0350, Unt il Discontinued, Routine, Pain (scale 1-3) budesonide (PULMICORT RESPULE) nebulizer Given 02/02/2020 7:06 AM CDT 0.5 mg solution 0.5 mg 0.5 mg, Inhalation, BID, First dose on Sat01/29/20 at 0800, Until Discontinued, Routine, field artillery crewmember approving Restricted medication: BARBARA BARLOW Given 02/01/2020 8:07 PM CDT 0.25 mg Given 02/01/2020 7:33 AM CDT 0.5 mg doxycycline hyclate (Vibramycin) capsule 100 Given 08/2020 9:38 AM CDT 100 mg mg 100 mg, Oral, Q12H, First dose on Sat02/01/20 at 1200, Until Discontinued, GRICEL, Reason for Anti-Infective: Empiric Therapy for Suspected Infection, Empiric Therapy Site: Respiratory, Duration of therapy: 7 days Given 02/01/2020 7:51 PM CDT 100 mg Given 02/01/2020 12:12 PM CDT 100 mg enoxaparin (LOVENOX) injection 40 mg Given 02/02/2020 9:38 AM CDT 40 mg Abdo men-SC 40 mg, Subcutaneous, DAILY, First dose on Sat01/29/20 at 0900, Until Discontinued, Routine Given 02/01/2020 9:15 AM CDT 40 mg Abdo men-SC Given 01/30/2020 8:54 AM CDT 40 mg Abdo men-SC ipratropium (ATROVENT) 0.02 % nebulizer Given 02/02/2020 11:13 A M CDT 0.5 mg solution 0.5 mg 0.5 mg, Inhalation, Q4H, First dose on Sat01/29/20 at 1200, Until Discontinued, Routine Given 02/02/2020 7:06 AM CDT 0.5 mg Given 02/02/2020 4:02 AM CDT 0.5 mg lactobacillus acidophilus (ACIDOPHILLUS) Given 02/02/2020 9 :38 AM CDT 1 tablet 25 million cell -100 mg captab 1 tablet 1 tablet, Oral, BID, First dose on Sat01/29/20 at 1130, Until Discontinued, Routine Given 02/01/2020 7:51 PM CDT 1 tablet Given 02/01/2020 9:15 AM CDT 1 tablet levalbuterol (XOPENEX) nebulizer solutio n 1.25 mg 1.25 mg, Inhalation, TIDPRN, Starting Sat01/29/20 at 04 29, Until Discontinued, Routine, Wheezing, Shortness of Breath, Approved by: A DC PROVIDER levalbuterol (XOPENEX) nebulizer solution Given 02/02/2020 1 1:13 AM CDT 1.25 mg 1.25 mg 1.25 mg, Inhalation, Q4H, First dose on Sat01/29/20 at 1200, Until Discontinued, Routine, Approved by: ADC PROVIDER Given 02/02/2020 7:06 AM CDT 1.25 mg Given 02/02/2020 4:02 AM CDT 1.25 mg LORazepam (ATIVAN) injection 0.25 mg Given 02/01/2020 11:40 PM CDT 0.25 mg 0.25 mg, Slow IV Push, TIDPRN, Starting Sat01/29/20 at 1549, Until Discontinued, Routine, Anxiety Given 02/01/2020 12:41 PM CDT 0.25 mg Given 01/31/2020 2:36 PM CDT 0.25 mg nicotine (NICODERM) 14 mg/24 hr patch 1 Given 02/02/2020 5:52 A M CDT 1 Patch Patch 1 Patch, Topical, Administer over 24 Hours, Q24H, First dose on Sat01/29/20 at 0645, Until Discontinued, Routine Applied 02/01/2020 6:19 AM CDT 1 Patch Given 01/31/2020 7:37 AM CDT 1 Patch ondansetron (ZOFRAN (PF)) injection 4 mg 4 mg, Slow IV Push, Q6HPRN, Starting Sat01/29/20 at 035 0, Until Discontinued, Routine, Nausea and Vomiting (N/V) predniSONE (DELTASONE) tablet 50 mg Given 02/02/2020 9:38 AM CDT 50 mg 50 mg, Oral, DAILY, First dose on Sat02/02/20 at 0900, Until Discontinued, Routine traMADol (ULTRAM) tablet 50 mg 50 mg, Oral, Q8HPRN, Starting Sat01/31/20 at 1602, Unt il Discontinued, Routine, Pain (scale 4-6) Medication Order MAR Action Action Date Dose Rate Site azithromycin (ZITHROMAX) 500 mg Given 02/01/2020 11:33 AM CDT 50 0 mg in NaCl 0.9% (NS) 250 mL VIAL-MATE IV piggyback 500 mg, IV Piggyback, Q24H ABX, 7 doses, First dose on Sat01/29/20 at 1230, Last dose on Sat02/04/20 at 1230, 250 mL, Reason for Anti-Infective: Empiric Therapy for Suspected Infection, Empiric Therapy Site: Respiratory, Duration of therapy: 7 days Given 01/31/2020 2:31 PM CDT 500 mg Given 01/30/2020 11:53 AM CDT 500 mg fluticasone propion-salmeterol (ADVAIR) Given 01/30/2020 7:38 A M CDT 1 Puff 250-50 mcg/dose inhalation disk 1 Puff 1 Puff, Inhalation, Q12H, First dose on Sat01/29/20 at 0800, Until Discontinued, Use approved by (Faculty and pager): ADC PROVIDER Given 01/29/2020 8:36 PM CDT 1 Puff Given 01/29/2020 7:28 AM CDT 1 Puff furosemide (LASIX) injection 20 mg Given 01/30/2020 8:01 PM CDT 20 mg 20 mg, Slow IV Push, ONCE, 1 dose, 01/30/20 at 1930, Routine ipratropium (ATROVENT) 0.02 % nebulizer Given 01/29/2020 7:11 A M CDT 0.5 mg solution 0.5 mg 0.5 mg, Inhalation, TID, First dose on Sat01/29/20 at 0800, Until Discontinued, Routine levalbuterol (XOPENEX) nebulizer solution Given 01/29/2020 7:11 AM CDT 1.25 mg 1.25 mg 1.25 mg, Inhalation, TID, First dose on Sat01/29/20 at 0800, Until Discontinued, Routine, Approved by: ADC PROVIDER magnesium sulfate in water 2 gram/50 mL (4 %) New Bag 1:06 AM CDT 2 g infusion 2 g 2 g, IV Piggyback, ONCE, 1 dose, Sat01/29/20 at 0200, STAT methylPREDNISolone sod succ (SOLU-MEDROL Given 01/30/2020 5:36 PM CDT 40 mg (PF)) injection 40 mg 40 mg, Slow IV Push, Q6H, First dose on Sat01/29/20 at 1700, Until Discontinued, Routine Given 01/30/2020 11:49 AM CDT 40 mg Given 01/30/2020 6:05 AM CDT 40 mg methylPREDNISolone sod succ (SOLU-MEDROL Given 02/01/2020 9:15 AM CDT 40 mg (PF)) injection 40 mg 40 mg, Slow IV Push, BID, First dose on Sat01/31/20 at 0800, Until Discontinued, Routine Given 01/31/2020 10:10 PM CDT 40 mg Given 01/31/2020 9:31 AM CDT 40 mg methylprednisolone sod succ (SOLU-MEDROL) Given 01/29/2020 6:23 AM CDT 125 mg injection 125 mg 125 mg, Slow IV Push, ONCE NOW, 1 dose, Sat01/29/20 at 0530, Routine sodium chloride 7% (HYPER-MEDARDO) nebulizer Given 01/30/2020 7:20 AM CDT 4 mL solution 4 mL 4 mL, Inhalation, DAILY, First dose on Sat01/29/20 at 1130, Until Discontinued, Routine Given 01/29/2020 3:30 PM CDT 4 mL documented in this encounter Insurance Payer Benefit Plan Subscriber ID Effective Phone Address Typ e / Group Dates [facility] [id number] 2020-Amy [facility]/AA nt [facility] MEDICAID OF xxxxxxxxx 2019-Amy [phone] [place] [id number] [place] [address] documented as of this encounter
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
--- OUTSIDE RECORDS SUMMARY | 2020-03-12 13:45 | XMS REPORT | Summary of Care ---
:1955 Author Organization [address] [address] Care Team Providers Name Role Phone MD Epifanio Unavailable Royal Pederson hammerer Gianni Valenzuela MSW Group Exercise Instructor Unavailable Cherise Dietrich MD Primary Care Provider Reason for Visit Reason Comments Hospital F/U notification of admission Encounter Details Date Type Department Care Team Description 02/10/2020 Patient Outreach [facility] Manda Pederson, KURT [facility] F/[address] (notificat ion of [facility] admission) [place], [place] [address] Allergies Active Allergy Reactions Severity Noted Date Comments Penicillins Rash 10/05/2016 documented as of this encounter (statuses as of 02/11/2020) Medications Medication Sig Dispensed Refills Start Date [...] as of this encounter (statuses as of 02/11/2020) Active Problems Problem Noted Date COPD with [...] as of this encounter (statuses as of 02/11/2020) Immunizations Name Administration Dates Next Due Influenza [...] encounter Progress Notes Manda Pederson RN - 02/10/2020 11:59 PM CDTCHP: SW notified CM of patient's admission. MAE Kendall, RN, [facility] Outpatient Objective C DeveloperDistance Learning TechnicianSelect Specialty Hospital O: [phone] M: [phone] documented in this encounter Plan of Treatment Date Type Specialty Care Team Description 02/18/2020 Office Visit Family Medicine Bruno Cleaning MD [address] [address] [phone] 03/11/2020 Office Visit Cardiology Saray Almaguer MD [address] [place] [address] [phone] 05/06/2020 Office Visit Pulmonary Disease Bronwyn Don DO [facility] [place] [address] Health Maintenance Due Date Last [...] Phone Address Typ e / Group Dates [facility] [id number] 2019-Pres Medica re Adv HEALTHCARE - MEDICARE ent HMO MANAGED COMPLETE MEDICARE TM MEDICAID OF xxxxxxxxx 2019-Pres [phone] Medi ca[address] [place] ent [id number] [place] [address] [facility] [id number] 2020-Pres PPO HEALTHCARE HEALTHCARE/A ent JAMAL documented as of this encounter
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
--- OUTSIDE RECORDS SUMMARY | 2020-03-12 13:45 | XMS REPORT | Summary of Care ---
:1955 Author Organization [facility] Address [address] [place] [address] Care Team Providers Name Role Phone MD Epifanio Unavailable Royal Pederson RNswing tender Gianni Valenzuela MSW Geospatial Analyst Unavailable Cherise Dietrich MD Primary Care Provider Reason for Visit Reason Comments Transition Of Care Encounter Details Date Type Department Care Team Description 02/04/[address] [facility] Ernestina Rutherford [facility] [address] [address] Allergies Active Allergy Reactions Severity Noted Date [...] Office Visit Pulmonary Disease Bronwyn Don DO [address] [place] [address] Health Maintenance Due Date Last [...] Phone Address Typ e / Group Dates [facility] [id number] 2019-Pres Medica re Adv HEALTHCARE - MEDICARE ent HMO MANAGED COMPLETE MEDICARE [facility] MEDICAID OF xxxxxxxxx 2019-Pres [phone] ca[address] [place] ent [id number] [place] [address] [facility] [id number] 2020-Pres PPO HEALTHCARE HEALTHCARE/A ent JAMAL documented as of this encounter
--- OUTSIDE RECORDS SUMMARY | 2020-03-12 13:46 | XMS REPORT | Summary of Care ---
:1955 Author Organization [facility] Address [address] [place] [address] Care Team Providers Name Role Phone MD Epifanio Unavailable Royal Pederson RNmachinist wood Gianni Valenzuela DIGITAL MUSIC INSTRUCTOR Study Hall Supervisor Unavailable Cherise Dietrich MD Primary Care Provider Reason for Visit Reason Comments Forms Encounter Details Date Type Department Care Team Description 02/09/2020 Telephone [facility] Pediatric[facility] & Shanae Dietrich, Forms Adult Primary Care- [place] VASUQEZ [address] [address] [address] [address] [place] [phone] [place] [phone] Allergies Active Allergy Reactions Severity Noted [...] Visit Family Medicine Bruno Cleaning MD [address] [address] 03/11/2020 Office Visit Cardiology Saray Almaguer MD [address] [place], [place] [address] [phone] 05/06/2020 Office Visit Pulmonary Disease Bronwyn Don, [address] [place] [address] Health Maintenance Due Date Last [...] Phone Address Typ e / Group Dates [facility] [id number] 2019-Pres Medica re Adv HEALTHCARE - MEDICARE ent HMO MANAGED COMPLETE MEDICARE TM MEDICAID OF xxxxxxxxx 2019-Pres [phone] [facility] ent [phone] [id number] [place] [address] [facility] [id number] 2020-Pres PPO HEALTHCARE HEALTHCARE/A ent JAMAL documented as of this encounter
--- OUTSIDE RECORDS SUMMARY | 2020-03-12 13:47 | XMS REPORT | Summary of Care ---
:1955 Author Organization [address] [address] Care Team Providers Name Role Phone MD Epifanio Unavailable Royal Pederson RNstaffing and scheduling coordinator Gianni Valenzuela MEMBER SERVICES REPRESENTATIVE [employer] Unavailable Cherise Dietrich MD Primary Care Provider Reason for Visit Reason Comments Social Work Encounter Details Date Type Department Care Team Description 02/16/2020 Patient Outreach [facility] Ned Valenzuela, MEMBER SERVICES REPRESENTATIVE [facility] [address] Allergies Active Allergy Reactions Severity Noted Date Comments Penicillins Rash 10/05/2016 documented as of this encounter (statuses as of 02/16/2020) Medications Medication Sig Dispensed Refills Start Date End Date Status calcium-vitamin D 500 Take 1 tablet by 30 tablet 2 04/11/2017 Active mg(1,250mg) -200 unit mouth daily. per tablet fluticasone Inhale 200 mcg 30 Each 3 06/09/2019 Ac tive furoate-vilanterol daily. (BREO ELLIPTA) 200-25 mcg/dose DsDvIndications: Pulmonary emphysema, unspecified emphysema type, Chronic obstructive pulmonary disease, unspecified COPD type levalbuterol 0.63 mg/3 Inhale 0.63 mg 30 Vial 2 10/07/2019 Active mL nebulizer every 6 (six) solutionIndications: hours as needed COPD exacerbation for Wheezing or Shortness of Breath. ipratropium 0.02 % Inhale 2.5 mL 30 Vial 2 10/07/2019 Active nebulizer every 6 (six) solutionIndications: hours as needed COPD exacerbation for Wheezing or Shortness of Breath. lactobacillus Take 1 tablet by 60 tablet 0 02/02/2020 Active acidophilus 25 million mouth 2 (two) cell -100 mg times daily. captabIndications: SOB (shortness of breath), Tobacco use disorder, continuous nicotine 14 mg/24 hr Apply 1 Patch to 30 Patch 2 2020 Active patchIndications: SOB area(s) every 24 (shortness of breath), (twenty-four) Tobacco use disorder, hours. continuous hydrOXYzine 25 mg Take 1 tablet by 20 tablet 0 02/02/2020 Active tabletIndications: SOB mouth every 6 (shortness of breath), (six) hours as Tobacco use disorder, needed for continuous Anxiety. predniSONE 10 mg Take 40 mg po qd x 32 tablet 0 02/02/2020 Active tabletIndications: SOB 3d, then 30 mg qd (shortness of breath), x 3d, 20 mg qd x Tobacco use disorder, 3d, 10 mg qd x 3d, continuous 5 mg qd x 3d documented as of this encounter (statuses as of 02/16/2020) Active Problems Problem Noted Date COPD with [...] as of this encounter (statuses as of 02/16/2020) Immunizations Name Administration Dates Next Due Influenza [...] encounter Progress Notes Beau Valenzuela MSW - 02/16/2020 9:46 AM CDTSocial Worker Note: JOSE spoke with patient who stated that she was currently at [facility] and will be discharged tomorrow 02/16. Patient stated that she would like [facility] to come visit her at her residence on 02/17 for assistance with walker that was ordered for her. Patient stated that she had the black mold removed from her residence as well. AQUACULTURE PROGRAM DIRECTOR scheduled meeting with the patient on 02/17 at 9am. Beau Valenzuela LMSW [facility] Ph. documented in this encounter Plan of Treatment Date Type Specialty Care Team Description 02/18/2020 Office Visit Family Medicine Bruno Cleaning MD [address] [address] [phone] 03/11/2020 Office Visit Cardiology Saray Almaguer MD [address] [place] [phone] 05/06/2020 Office Visit Pulmonary Disease Bronwyn Don DO [address] [place] [address] Health Maintenance Due Date Last [...] / Group Dates [facility] [id number] 2019-Pres Medica re Adv HEALTHCARE - MEDICARE ent HMO MANAGED COMPLETE MEDICARE [facility] MEDICAID OF xxxxxxxxx 2019-Pres [phone] [facility] ent [phone] [id number] [place] [address] [facility] [id number] 2020-Pres PPO HEALTHCARE HEALTHCARE/A ent JAMAL documented as of this encounter
--- OUTSIDE RECORDS SUMMARY | 2020-03-12 13:47 | XMS REPORT | Summary of Care ---
:1955 Author Organization [facility] Address [address] [place] [id number] Care Team Providers Name Role Phone MD Epifanio Unavailable Royal Pederson RNmaintenance worker Gianni Valenzuela [employer] Integrator Unavailable Cherise Dietrich MD Primary Care Provider Reason for Referral Other (Routine) Status Reason Specialty Diagnoses / Procedures Referred By Ned sarabia To Contact Contact New Request Diagnoses COPD exacerbation Rafiq Tucker MD Shah, Shiwan, DO Procedures Discharge Follow-up: Specialty Provider BIMAL KLEIN; 2 Weeks [address] [address] [place], [place] Phone: [phone] Phone: Fax: (Routine) Status Reason Specialty Diagnoses / Referred By Referred To Procedures Contact Contact New Request Diagnoses COPD exacerbation Rafiq Tucker MD [place], Procedures Discharge Follow-up: PCP YASEMIN DIETRICH; 1 Week 301 [facility] Yasemin Luong MD [place] [id number] [place], [place] Phone: [phone] Phone: Fax: MRI/CAT Scan (STAT) Status Reason Specialty Diagnoses / Referred By Referred To Procedures Contact Contact New Request Diagnostic Diagnoses Dyspnea, unspecified type Harrison Hernandez, Radiology Procedures CT CHEST PULMONARY ANGIOGRAM [address] [place] [address] [place] [phone] Radiology Services (STAT) Status Reason Specialty Diagnoses / Referred By Referred To Procedures Contact Contact New Request Diagnostic Diagnoses Dyspnea, unspecified type Harrison Hernandez, Radiology Procedures XR CHEST 1 VW COVID Chest [address] [place] [address] [place] [phone] Reason for Visit Reason Comments Shortness of Breath COPD Auth/Cert Status Reason Specialty Diagnoses / Referred By Referred To Procedures Contact Contact Emergency Medicine [facility] Em ergency Dept [address] [place] [address] [place] [address] Fax: Encounter Details Date Type Department Care Team Description 02/09/2020 - Emergency ADC Medicine Surgery Zachary Hernandez MD [address] [place] [address] [place] [phone] COPD exacerbation 02/13/2020 Unit Barbara Barlow MD [address] [place] [address]. [place] [address] [place] [address] [place], [place] [phone] Allergies Active Allergy Reactions Severity Noted Date Comments Penicillins Rash 10/05/2016 documented as of this encounter (statuses as of 02/13/2020) Medications Medication Sig Dispensed Refills Start Date End Date Status calcium-vitamin D Take 1 tablet 30 tablet 2 04/11/2017 Active 500 mg(1,250mg) by mouth daily. -200 unit per tablet fluticasone Inhale 200 mcg 30 Each 3 06/09/2019 Ac tive furoate-vilanterol daily. (BREO ELLIPTA) 200-25 mcg/dose DsDvIndications: Pulmonary emphysema, unspecified emphysema type, Chronic obstructive pulmonary disease, unspecified COPD type levalbuterol 0.63 Inhale 0.63 mg 30 Vial 2 10/07/2019 Active mg/3 mL nebulizer every 6 (six) solutionIndications hours as needed : COPD exacerbation for Wheezing or Shortness of Breath. ipratropium 0.02 % Inhale 2.5 mL 30 Vial 2 10/07/2019 Active nebulizer every 6 (six) solutionIndications hours as needed : COPD exacerbation for Wheezing or Shortness of Breath. lactobacillus Take 1 tablet 60 tablet 0 02/02/2020 A ctive acidophilus 25 by mouth 2 million cell -100 (two) times mg daily. captabIndications: SOB (shortness of breath), Tobacco use disorder, continuous nicotine 14 mg/24 Apply 1 Patch 30 Patch 2 2020 Active hr to area(s) patchIndications: every 24 SOB (shortness of (twenty-four) [...] 3d, continuous 5 mg qd x 3d budesonide 0.5 mg/2 Inhale 2 mL 2 100 Vial 3 08/14/201902/12 Discontinued mL nebulizer (two) times 0 solutionIndications daily. : Pulmonary emphysema, unspecified emphysema type, Hypoxia doxycycline hyclate Take 1 capsule 14 capsule 0 02/02/2020 Discontinued 100 mg by mouth every 0 capsuleIndications: 12 (twelve) SOB (shortness of hours for 7 breath), Tobacco days. use disorder, continuous documented as of this encounter (statuses as of 02/13/2020) Active Problems Problem Noted Date COPD with [...] as of this encounter (statuses as of 02/13/2020) Immunizations Name Administration Dates Next Due Influenza [...] Sign Reading Time Taken Comments Blood Pressure 96/79 02/13/2020 3:36 PM CDT Pulse 80 02/13/2020 3:36 PM CDT Temperature 36.2 C (97.1 F) 02/13/2020 3:36 PM CDT Respiratory Rate 20 02/13/2020 3:36 PM CDT Oxygen Saturation 95% 02/13/2020 3:36 PM CDT Inhaled Oxygen Concentration - - Weight 59 kg (130 lb) 02/13/2020 6:00 AM CDT Height 157.5 cm (5' 2") 02/09/2020 6:55 PM CDT Body Mass Index 23.78 02/09/2020 6:55 PM CDT documented in this encounter Discharge Summaries Rafiq Tucker MD - 02/13/2020 11:29 AM CDT Hospital Medicine Discharge Summary PATIENT NAME: Mariana Turner : 1955 AGE: [age] year old PRIMARY CARE PHYSICIAN: Yasemin Dietrich ADMITTING PHYSICIAN: Barbara Barlow MD DISCHARGE PHYSICIAN: Rafiq Tucker MD ADMISSION DATE: 02/09/2020 DISCHARGE DATE: 02/13/2020 DISCHARGE DIAGNOSES: Active Problems: COPD exacerbation HPI 64 year-old female with pmh of breast cancer s/p right mastectomy, COPD, chronic respiratory failure(on 2L NC) who presents to the EDsecondary to dyspnea, cough for the past 2 days. Patient was recently discharged from [facility] on 02/01 after being diagnosed and treated for COPD exacerbation. Shestates that her symptoms improved and was not having symptoms until 2 days ago. Apparently, patientcontinues to smokes even after discharge. Shedescribes her symptoms as dry nonproductive cough and worsening shortness of breath despite increase use of her nebulizer treatments. HOSPITAL COURSE: Patient was admitted for recurrent COPD exacerbation. She was treated with steroid and bronchodilators. She completed the previous abx course. O2 suppl was continued. Her condition gradually improved. She was discharged to inpatient rehab [facility] for pulmonary rehab. She was discharged on tapering dose of steroid. Follow with pulmonology/Dr. Klein closely. REVIEW OF SYSTEMS: General: (-) fever, (-) chills, (-) weight loss, (-) weight gain, (-) fatigue, (-) malaise Skin: (-) rash, (-) lesion HEENT: (-) headache, (-) change in hearing, (-) change in vision, (-) nasal discharge, (-) sore throat Neck: (-) pain, (-) difficulty swallowing, (-) mass Heme: (-) bleeding disorder Resp: (-) cough, (+) shortness of breath, (+) dyspnea on exertion Cardio: (-) chest pain, (-) palpitations, (-) syncope GI: (-) abdominal pain, (-) nausea, (-) vomiting, (-) diarrhea, (-) constipation, (-) melena, (-) hematochezia, (-) hematemesis : (-) dysuria, (-) hematuria, (-) increased frequency, (-) difficulty urinating, (-) difficulty initiating Endo: (-) heat intolerance, (-) cold intolerance, (-) polyuria, (-) polydipsia Neuro: (-) numbness, (-) tingling, (-) weakness Back: (-) pain, (-)spasms YONI: (-) muscle pain, (-) joint pain, (-) claudication Psych: (-) anxiety, (-) depression, (-) psychiatric disorder DISCHARGE PHYSICAL EXAM: Most recent vital signs: Temp: 36.2 C (97.2 F) - BP: 116/62 - Pulse: 91 - Resp: 20 - SpO2: 92 % General: alert and oriented x 4 (person, place, date/time and situation); no apparent distress HEENT: pupils equal, round, reactive to light; extraocular movements intact; oropharynx clear; moistmucous membranes Neck: supple, no lymphadenopathy, no bruits, no JVD Lungs: decreased BS bilaterally; very mild bilateral wheezing Cardio: S1, S2 normal; no murmurs, rubs or gallops Abdomen: soft; non-tender; non-distended; normoactive bowel sounds Extremities: no clubbing, cyanosis, or edema Skin: no rashes Neuro: cranial nerves II through XII grossly intact; sensation grossly intact; muscle strength 5 outof 5 in all four extremities, no focal deficits, alert and oriented x 3 CONSULTS: None PROCEDURES: None LABS PENDING: None DIET: regular ACTIVITY: as tolerated MEDS: Current Discharge Medication List CONTINUE these medications which have NOT CHANGED Details hydrOXYzine (ATARAX) 25 mg Take 25 mg by mouth every 6 (six) hours as needed for Anxiety. Qty: 20 tablet, Refills: 0 Associated Diagnoses: SOB (shortness of breath); Tobacco use disorder, continuous lactobacillus acidophilus (ACIDOPHILLUS) 1 tablet Take 1 tablet by mouth 2 (two) times daily. Qty: 60 tablet, Refills: 0 Associated Diagnoses: SOB (shortness of breath); Tobacco use disorder, continuous nicotine (NICODERM) 1 Patch Apply 1 Patch to area(s) every 24 [...] (shortness of breath); Tobacco use disorder, continuous ipratropium (ATROVENT) 0.5 mg Inhale 0.5 mg every 6 (six) hours as needed for Wheezing or Shortness of Breath. Qty: 30 Vial, Refills: 2 Associated Diagnoses: COPD exacerbation levalbuterol (XOPENEX) 0.63 mg Inhale 0.63 mg every 6 (six) hours as needed for Wheezing or Shortness of Breath. Qty: 30 Vial, Refills: 2 Associated Diagnoses: COPD exacerbation fluticasone furoate-vilanterol (BREO ELLIPTA) 200 mcg Inhale 200 mcg daily. Qty: 30 Each, Refills: 3 Associated Diagnoses: Pulmonary emphysema, unspecified emphysema type; Chronic obstructive pulmonary disease, unspecified COPD type calcium-vitamin D (OSCAL-500) 1 tablet Take 1 tablet by mouth daily. Qty: 30 tablet, Refills: 2 STOP taking these medications doxycycline hyclate (Vibramycin) 100 mg Comments: Reason for Stopping: budesonide (PULMICORT RESPULE) 0.5 mg Comments: Reason for Stopping: SIGNIFICANT LAB/X-RAYS: Lab results: CBC BMP PT/INR WBC x10^3 (/uL) Date Value 01/12/2013 6.3 WBC (10*3/L) Date Value 02/13/2020 13.53 (H) NA Date Value 02/13/2020 139 mmol/L 01/12/2013 139 MMOL/L No results found for: PT RBC x10^6 (/uL) Date Value 01/12/2013 5.17 RBC (10*6/L) Date Value 02/13/2020 3.94 K Date Value 02/13/2020 4.1 mmol/L 01/12/2013 4.5 MMOL/L INR (no units) Date Value 02/09/2020 0.9 PLT x10^3 (/uL) Date Value 01/12/2013 239 PLT (10*3/L) Date Value 02/13/2020 255 CALCIUM Date Value 02/13/2020 8.8 mg/dL 01/12/2013 9.5 MG/DL HGB Date Value 02/13/2020 12.3 g/dL 01/12/2013 16.5 G/DL (H) CL Date Value 02/13/2020 97 mmol/L (L) 01/12/2013 103 MMOL/L aPTT HCT (%) Date Value 02/13/2020 38.5 01/12/2013 47.3 (H) BUN Date Value 02/13/2020 18 mg/dL 01/12/2013 15 MG/DL APTT Patient (Seconds) Date Value 02/09/2020 24 CREATININE Date Value 02/13/2020 0.48 mg/dL (L) 01/12/2013 0.65 MG/DL GLUCOSE Date Value 02/13/2020 88 mg/dL 01/12/2013 106 MG/DL CO2 TOTAL Date Value 02/13/2020 41 mmol/L (H) 01/12/2013 25 MMOL/L Imaging results: Xr Chest 1 Vw Result Date: 01/29/2020 Mild pulmonary vascular congestion. Trace left pleural effusion. Emphysema. Preliminary Report Dictated by Resident: Von Car I, Leonardo Lainez MD., have reviewed this study and agree with the above report. Ct Chest Pulmonary Angiogram Result Date: 02/10/2020 1. No pulmonary embolism. 2. Chronic centrilobular emphysematous changes with an upper lobe predominance. Preliminary Report Dictated by Resident: Scout Pope I, Angel Garcia MD., have reviewed this study and agree with the above report. Xr Chest 1 Vw Covid Result Date: 02/10/2020 No findings suggestive of COVID-19 pneumonia. Disclaimer: Generally, the findings on chest imaging in COVID-19 are not specific, and overlap with other infections, including influenza, H1N1, SARS and MERS. According to the Centers for Disease Control (CDC) and the [place] [employer], viral testing remains the only specific method of diagnosis even if CXR or CT findings are suggestive of COVID-19. Preliminary Report Dictated by Resident: Von Car I, Angel Garcia MD., have reviewed this study and agree with the above report. Xr Chest 1 Vw Covid Result Date: 01/16/2020 1. The lungs are emphysematous. No evidence of an acute infiltrate, pleural effusion, or pneumothorax. 2. Blunting of the costophrenic angles may be secondary to scarring. 3. Findings are not suggestive of COVID19 pneumonia. Disclaimer: Generally, the findings on chest imaging in COVID-19 are not sp ecific, and overlap with other infections, including influenza, H1N1, SARS and MERS. According to the Centers for Disease Control (CDC) and the [place] [employer], viral testing remains the only specific method of diagnosis even if CXR or CT findings are suggestive of COVID-19. Preliminary R eport Dictated by Resident: Felicita Antunez I, Mike Crump MD., have reviewed this study and agree with the above report. DISPOSITION: inpatient rehab ([facility]) CONDITION: Fair FOLLOW-UP: PCP Pulmonology I spent 45 minutes including a [id number] visit, discussing the plan of care with the patient, patient education regarding medication compliance, exam, and coordination of discharge Electronically Signed by: Rafiq Tucker MD 02/13/2020 11:29 AM documented in this encounter Discharge Instructions InstructionsCoLatoya holley RN - 02/13/2020 Patient Discharge Instructions Discharge date: 02/13/2020 Procedure(s): Discharge Orders Discharge Follow-up: PCP YASEMIN DIETRICH; 1 Week To PCP: YASEMIN DIETRICH [[id number]] Patient's Preferred Location: Other - Specify Comments Discharge Disposition: Rehab, (ATX) When (Patients with risk for unplanned readmission score over 16 or those noted as Hospital Dependent should follow up within 7 days with PCP or primary DX specialist): 1 Week Risk of Unplanned Readmission:( Score greater than 16 indicates high risk) 15 Regular Diet; Texture: Regular. Texture Regular. Diabetic: No Discharge Condition - Discharge Condition: FAIR Discharge Activity Discharge Activity: As Tolerated Discharge Follow-up: Specialty Provider BIMAL KLEIN; 2 Weeks To Provider: BIMAL KLEIN [[id number]] Patient's Preferred Location: [facility] Discharge Disposition: Rehab, ([facility]X) When (Patients with risk for unplanned readmission score over 16 or those noted as Hospital Dependent should follow up within 7 days with PCP or primary DX specialist): 2 Weeks Risk of Unplanned Readmission:( Score greater than 16 indicates high risk) 15 VTE Propylaxis- Was ordered during hospitalization Follow instructions as indicated below: 1. The medication that was used will be acting in your system for the next 24 hours, so you might feel a little drowsy, with impaired judgment and or motor function. This feeling should go wear off. Because the medication is still in your system for the next 24 hours you SHOULD NOT: Drive a car, operate machinery or power tool. Drink any alcohol beverages (including beer or wine). Make any important decisions or sign any legal documents. 2. You should rest the remainder of the day and not engage in any physical activity. Move slowly today. After lying down, sit on the edge of the bed for a moment before standing. YOU ARE RESPONSIBLEFOR HAVING SOMEONE AT HOME WITH YOU DURING THE AFTERNOON AND NIGHT IMMEDIATELY FOLLOWING YOUR SURGERY. Patient should cough and deep breathe every 2-4 hours while awake to avoid respiratory complications. 4. Lifting: {IP DISCHARGE INSTRUCTIONS LIFTIN::"No medical restrictions"} 5. Weight: In general, sudden weight gains or losses should be reported to your provider. Cardiac patients should weigh daily and notify their provider for a weight gain of 3 pounds per day or 5 pounds per week. 6. Tobacco Avoidance: Follow recommendations below 7. Because the medications used could procedure some residual nausea and vomiting after you go home,you should eat lightly today, starting with clear liquids (broth, soft drinks, apple juice, jello) and toast or crackers, progressing to bland solid foods and then to your normal diet as tolerated, unle ss otherwise stated by your surgeon. If you get sick, wait a couple of hours and then begin to eat. After 24 hours the nausea should be gone. 8. You may experience some pain and your physician will advise you on what to take for discomfort. This should be taken as directed. If the pain is not relieved, contact your physician. You may alsohave a sore throat from the airway that was in place. You may uses lozenges, throat spray (such as C hloraseptic), or warm salt water gargles for symptomatic relief. 9. If you feel warm, take your temperature. If it is 101 degrees or above call your physician. 10. If you are unable to urinate within five hours after your procedure, call your physician. 11. The type of surgery performed will determine how much bleeding (if any) to expect. Normally, some spotting might occur. If your dressing pad becomes saturated, notify your physician. Elevate surgical site, if applicable, to reduced swelling and pain. 12. Wound/dressing care: Tips on preventing a surgical site infection.. Dont smoke. It is best to quit at least 30 days before surgery, but quitting after surgery is also helpful. If you are diabetic, keep your blood sugar well controlled. WASH YOUR HANDS. Keep your wound clean and remember to wash your hands before and after contact with the area. All health care workers should also wash their hands or use an alcohol based hand rub prior to examining you. If antibiotics are prescribed, take them as directed. Finish the entire course of antibiotics. Call your doctor if you have signs of infection: ? Increased tenderness at the surgical site ? Red streaks or increased redness of the area ? Bad-smelling discharge from the incision ? Fever of 101F or higher ? General tired feeling that doesnt improve 13. Other discharge instructions: {DC IP DISCHARGE INSTRUCTIONS OTHER:71002} 14. Special Instructions: Take Home Medications These are medications ordered for you by your healthcare provider. Do not take any other medications or supplements unless advised by your healthcare provider. Current Discharge Medication List CONTINUE these medications which have NOT CHANGED Details hydrOXYzine 25 mg tablet Take 1 tablet [...] (shortness of breath); Tobacco use disorder, continuous ipratropium 0.02 % nebulizer solution Inhale 2.5 [...] mouth daily. Qty: 30 tablet, Refills: 2 STOP taking these medications doxycycline hyclate 100 mg capsule Comments: Reason for Stopping: budesonide 0.5 mg/2 mL nebulizer solution Comments: Reason for Stopping: Follow-up appointments: Your follow up appointment with your surgeon has been made. Appointment Date: , Appointment Time . For questions regarding follow-up instructions call the Healthcare Hotline at or If you experience any of the following symptoms , please follow up with . For worsening symptoms/changing condition/problems or questions: Non-emergency/urgent: Call the [employer] Hotline at or or Emergency: Go to the closest emergency room or call 086 Translated by Date Time If you receive the patient satisfaction survey [...] information on smoking and how to quit. [place] [employer], http://www.lungusa.org/stop-smoking/ [place] [employer], http://www.cancer.org/Healthy/StayAwayfromTobacco/index [place] [employer], http://www.heart.org/HEARTORG/GettingHealthy/QuitSmoking/Quit-Smoking_[facility] _001085_SubHomePage.jsp AttachmentsThe following attachments cannot be sent through Care Everywhere. Chronic Obstructive Pulmonary Disease (COPD), Discharge Instructions (American) COPD: Wheezing and Chest Tightness (American)Pulmonary Rehabilitation, Getting Started with (American)Pulmonary Rehabilitation Program, What Is (American) documented in this encounter Progress Notes Rafiq Tucker MD - 02/12/2020 4:22 PM CDT [facility] Medicine Progress Note Name: Mariana Turner : 1955 Admit Date: 02/09/2020 PCP on file: Yasemin Dietrich ASSESSMENT: Mariana Turner is a 65 year old female with PLAN: # Acute on chronic respiratory failure: secondary to COPD exacerbation # Recurrent COPD exacerbation due to non-compliance # tobacco abuse -- Oxygen supplementation as needed -- continue to complete the previous abx coursetoday -- Will continue with duoneb scheduled/prn -- continue oral steroid -- continue supportive therapy (eg, anti-tussive, decongestant) -- patient was counseled for smoking cessation -- discharge to [facility] for pulmonary rehab tomorrow # tachycardia: likely due to bronchodilator use. Resolved -- monitor # Leukocytosis due to steroid - monitor # h/o right breast ca Dispo: Rehab tomorrow VTE Prophylaxis: enoxaparin Code Status: [facility] [employer] TYPE ONE was verified during stay Electronically signed by: Rafiq Tucker MD SUBJECTIVE/ 24-HOUR HOSPITAL EVENTS: 02/09: still has SOB and mild wheezing. 02/10: still symptomatic with mild wheezing. 02/11: doing better, although remains symptomatic. OBJECTIVE: Vital signs range: Temp: [36.4 C (97.5 F)-37.1 C (98.8 F)] 37.1 C (98.8 F) Pulse: [81-111] 81 Resp: [18-20] 20 BP: (108-126)/(54-73) 118/72 Most recent vital signs: BP 118/72 | Pulse 81 | Temp 37.1 C (98.8 F) (Tympanic) | Resp 20 | Ht 1.575 m (5' 2") | Wt 56.7 kg (125 lb) | SpO2 94% | BMI 22.86 kg/m I/O: I/O last 3 completed shifts: In: 150 [Oral:150] Out: - PHYSICAL EXAM: General: alert and oriented x 4 (person, place, date/time and situation); no apparent distress HEENT: pupils equal, round, reactive to light; extraocular movements intact; oropharynx clear; moistmucous membranes Neck: supple, no lymphadenopathy, no bruits, no JVD Lungs: decreased BS bilaterally, mild wheezing Cardio: S1, S2 normal; no murmurs, rubs or gallops Abdomen: soft; non-tender; non-distended; normoactive bowel sounds Extremities: no clubbing, cyanosis, or edema Skin: no rashes Neuro: cranial nerves II through XII grossly intact; sensation grossly intact; muscle strength 5 outof 5 in all four extremities, no focal deficits, alert and oriented x 3 LABS: I reviewed all the relevant patient's new lab test results Recent Results (from the past 24 hour(s)) Basic Metabolic Panel (NA, K, CL, CO2, GLUCOSE, BUN, CREATININE, CA) Collection Time: 02/12/20 4:15 AM Result Value Ref Range NA 138 135 - 145 mmol/L K 4.2 3.5 - 5.0 mmol/L CL 94 (L) 98 - 108 mmol/L CO2 TOTAL 40 (H) 23 - 31 mmol/L AGAP 4 2 - 16 BUN 24 (H) 7 - 23 mg/dL GLUCOSE 98 70 - 110 mg/dL CREATININE 0.47 (L) 0.50 - 1.04 mg/dL CALCIUM 8.8 8.6 - 10.6 mg/dL eGFR Calculation (Non-) 133.8 mL/min/1.73m2 eGFR Calculation () 162.2 mL/min/1.73m2 CBC WITH DIFFERENTIAL Collection Time: 02/12/20 4:15 AM Result Value Ref Range WBC 13.06 (H) 4.30 - 11.10 10*3/L RBC 3.76 (L) 3.93 - 5.25 10*6/L HGB 12.0 11.6 - 15.0 g/dL HCT 38.4 35.7 - 45.2 % MCV 102.1 (H) 80.6 - 95.5 fL MCH 31.9 25.9 - 32.8 pg MCHC 31.3 (L) 31.6 - 35.1 g/dL RDW-SD 53.7 (H) 39.0 - 49.9 fL RDW-CV 14.1 12.0 - 15.5 % PLT 274 166 - 358 10*3/L MPV 9.3 (L) 9.5 - 12.9 fL NRBC/100 WBC 0.0 0.0 - 10.0 /100 WBCs NRBC x10^3 <0.01 10*3/L GRAN MAT (NEUT) % 77.4 % IMM GRAN % 1.10 % LYMPH % 13.5 % MONO % 7.6 % EOS % 0.2 % BASO % 0.2 % GRAN MAT x10^3(ANC) 10.13 (H) 1.88 - 7.09 10*3/uL IMM GRAN x10^3 0.14 (H) 0.00 - 0.06 10*3/uL LYMPH x10^3 1.76 1.32 - 3.29 10*3/uL MONO x10^3 0.99 (H) 0.33 - 0.92 10*3/uL EOS x10^3 <0.03 (L) 0.03 - 0.39 10*3/uL BASO x10^3 <0.03 0.01 - 0.07 10*3/uL IMAGING: I reviewed all the relevant patient's new radiology test results Hospital Encounter on 02/09/20 XR CHEST 1 VW COVID Narrative PROCEDURE: CHEST XRAY CLINICAL INDICATION: dyspnea COMPARISON: Chest radiograph 01/29/2020 FINDINGS: The lungs are emphysematous. Bibasilar subsegmental atelectasis is present. Pericardial fat is prominent. The lungs are otherwise clear. The heart is normal in size. No acute bony abnormality. Right axillary surgical clips are unchanged. Impression No findings suggestive of COVID-19 pneumonia. Disclaimer: Generally, the findings on chest imaging in COVID-19 are not specific, and overlap with other infections, including influenza, H1N1, SARS and MERS. According to the Centers for Disease Control (CDC) and the [place] [employer], viral testing remains the only specific method of diagnosis even if CXR or CT findings are suggestive of COVID-19. Preliminary Report Dictated by Resident: Von Car I, Angel Garcia MD., have reviewed this study and agree with the above report. CT CHEST PULMONARY ANGIOGRAM Narrative PROCEDURE: CT ANGIO CHEST WITH CONTRAST - PE PROTOCOL CLINICAL INDICATION: Shortness of breath COMPARISON: CT 10/06/2016, MR abdomen 11/13/2016, same day chest radiograph. TECHNIQUE AND FINDINGS: A helical CT scan was performed and reconstructed using 1.25 mm slice thickness from the lung bases through the apices after the uncomplicated administration of 100 cc of intravenous Omnipaque contrast. Sagittal and coronal reconstructions, and axial maximum intensity projections were generated and reviewed to further define anatomy and possible pathology. (DFOV = 33.8 cm) FINDINGS: PULMONARY ARTERIES: Technically adequate enhancement of the pulmonary arteries reveals no pulmonary embolism. LINES AND TUBES: None LOWER NECK/THYROID: Streak artifact limits evaluation of the thyroid. No discrete nodules are identified. LUNGS/PLEURA: Changes of upper lobe predominant centrilobular emphysema. Linear densities in the left apex likely represents scarring. Atelectasis is noted in the right lower lobe and lingula. No focal consolidation, pleural effusion, or pneumothorax. Calcified granuloma in the right upper lobe. CENTRAL AIRWAY: No mucous plugging or bronchial wall thickening. Minimal bronchiectasis in the bilateral lower lobes. A focus of traction bronchiectasis in the left lower lobe is unchanged (5:151). MEDIASTINUM: Mediastinal and hilar nodes measure up to 1.0 cm in diameter. Normal cardiac morphology. No pericardial effusion. AORTA AND GREAT VESSELS: Mild to moderate atherosclerotic calcifications affect the aortic arch. The visualized portions of the aorta are normal in caliber. BONES AND SOFT TISSUES: Mild spondylosis of the thoracic spine. Remote bilateral rib fractures. Changes of a right mastectomy and axillary lymph node dissection. VISUALIZED UPPER ABDOMEN: A hypoattenuating lesion in segment was consistent with a hemangioma on prior multiphasic imaging. Hypoattenuating right superior pole cystic structure demonstrates attenuation higher than expected of simple fluid and was consistent with a simple cyst on prior MR imaging. Thickening of the left adrenal gland without a discrete nodule. Impression 1. No pulmonary embolism. 2. Chronic centrilobular emphysematous changes with an upper lobe predominance. Preliminary Report Dictated by Resident: Scout Pope I, Angel Garcia MD., have reviewed this study and agree with the above report. MEDICATIONS: I reviewed the current inpatient medications ordered Current Facility-Administered Medications Medication Dose Route Frequency Last Rate Last Dose hydrOXYzine (ATARAX) tablet 10 mg 10 mg Oral Q6HPRN 10 mg at 02/12/20 1515 doxycycline hyclate (Vibramycin) capsule 100 mg 100 mg Oral Q12HA2 100 mg at 02/12/20 0515 predniSONE (DELTASONE) tablet 50 mg 50 mg Oral DAILY 50 mg at 02/12/20 0813 acetaminophen (TYLENOL) tablet 650 mg 650 mg Oral Q6HPRN budesonide (PULMICORT RESPULE) nebulizer solution 0.5 mg 0.5 mg Inhalation BID 0.5 mg at 02/12/20 0714 enoxaparin (LOVENOX) injection 40 mg 40 mg Subcutaneous DAILY 40 mg at 02/12/20 0813 ipratropium-albuterol (DUONEB) 0.5 mg-3 mg(2.5 mg base)/3 mL nebulizer solution 3 mL 3 mL Inhalation QIDPRN 3 mL at 02/12/20 0336 ipratropium-albuterol (DUONEB) 0.5 mg-3 mg(2.5 mg base)/3 mL nebulizer solution 3 mL 3 mL Inhalation QID 3 mL at 02/12/20 1111 nicotine (NICODERM) 21 mg/24 hr patch 1 Patch 1 Patch Topical Q24H Stopped at 02/11/20 2230 ondansetron (ZOFRAN (PF)) injection 4 mg 4 mg Slow IV Push Q6HPRN Juanpablo Barber RN - 02/12/2020 4:20 PM CDT Care Management Discharge Disposition Note (DCDN) -2-1 Interventions: Clear discharge plan -2- Providers: Gastroenterology Teacher/Geospatial Systems Integrator -2-1 Patient Capacity Improvements: Transportation arrangements Discharge Plan for ongoing care and services: Rehabilitation Is this a new referral: Yes Patient Choice completed for referred services: Yes DME location: Other DME location: Durable Medical Equipment: Home Health location: Discharge location(s): Rehabilitation location: [address] [address] (P) [phone] ([phone] Patient choice completed for referred services: Yes Discussed with patient/patients family involved in decision making: Yes Patient or family caregiver understands, and agrees with discharge plan. Community resources/referrals made or provided to patient: No Resources/Referrals: Transportation: Wheelchair Van Mental Status: Alert & Oriented to Person,Place & Time Living Arrangement: Home Other living arrangement: Address of living arrangement: [address] [place] [address] [address] [facility] [address] Funding Resources: Medicare Replacement Nursing informed of discharge plan: Yes Name of RN informed: Expected discharge date: 02/13/2020 Time: Afternoon [30] Additional Information: ESTEVAN/DEBORAH Name & Contact number: Juanpablo Hoff RN Ph. Juanpablo Hoff RN, BSN [facility] Gastroenterology Teacher O [phone] F [phone] The following information has been provided to the facility noted above: reason for the patient discharge or transfer; patients physical and psychosocial status; summary of care, treatment, servicesprovided to patient; and the patient progress toward goals. Juanpablo Barber RN - 02/12/2020 3:52 PM CDTRec'd a call from Delia w/ [facility] stating patient has been approved to admit on 02/13/20, due to them not having an available bed today. She also stated [facility] street contractor rep will calltomorrow w/ MOT info. MOT and discharge packet placed in chart. Juanpablo Hoff RN, BSN [facility] Gastroenterology Teacher O [phone] F [phone] uanpablo Torres RN - 02/11/2020 3:55 PM CDTPt inquiring about going to [facility] for pulmonary therapy, clinicals faxed over. Awaiting acceptance. Juanpablo Hoff RN, BSN [facility] Gastroenterology Teacher O [phone] F [phone] Pebbles Araya RT - 02/11/2020 1:00 PM CDTIntroduced myself to patient (after asking name/ verify patient) explaining I was from [place]. Explained once she is identified as a potential candidate for [facility], will get a consult (done) then call her to S/U time for initial evaluation & six minute walk. Assessments/evaluation information sent to [facility] who(m) then approves patient for a limited number of sessions. Then we start exercising - slowly at first, adding one minute or increasing intensity, at each session. Patient will also be given handouts on her disease (COPD); nutrition; psychosocial & exercise. Informed patient [facility] is twice/week for about an hour. Asked if had any questions: reported she has a provider to drive herplaces, which is fine. Left brochure with my name & phone number on it. Assured patient I would call in next couple of weeks about initial evaluation. Patient stated she looked forward to working with me. Pebbles Crenshaw, RRT Rafiq Lindquist MD - 02/11/2020 12:49 PM CDT [facility] Medicine Progress Note Name: Mariana Turner : 1955 Admit Date: 02/09/2020 PCP on file: Yasemin Dietrich ASSESSMENT: Mariana Turner is a 65 year old female with PLAN: # Acute on chronic respiratory failure: secondary to COPD exacerbation # Recurrent COPD exacerbation due to non-compliance # tobacco abuse -- Oxygen supplementation as needed -- continue to complete the previous abx course -- Will continue with duoneb scheduled/prn -- continue oral steroid -- Will order for other supportive therapy (eg, anti-tussive, decongestant) -- patient was counseled for smoking cessation -- outpatient pulmonary rehab # tachycardia: likely due to bronchodilator use. Resolved -- monitor # Leukocytosis due to steroid - monitor # h/o right breast ca Dispo: home tomorrow VTE Prophylaxis: enoxaparin Code Status: [facility] [place] FIREFIGHTER TYPE ONE was verified during stay Electronically signed by: Rafiq Tucker MD SUBJECTIVE/ 24-HOUR HOSPITAL EVENTS: 02/09: still has SOB and mild wheezing. 02/10: still symptomatic with mild wheezing. OBJECTIVE: Vital signs range: Temp: [36.4 C (97.5 F)-37.4 C (99.4 F)] 37.1 C (98.7 F) Pulse: [85-109] 87 Resp: [16-20] 20 BP: (96-126)/(55-70) 101/55 Most recent vital signs: BP 101/55 | Pulse 87 | Temp 37.1 C (98.7 F) | Resp 20 | Ht 1.575 m (5' 2") | Wt 56.7 kg (125 lb) | SpO2 100% | BMI 22.86 kg/m I/O: No intake/output data recorded. PHYSICAL EXAM: General: alert and oriented x 4 (person, place, date/time and situation); no apparent distress HEENT: pupils equal, round, reactive to light; extraocular movements intact; oropharynx clear; moistmucous membranes Neck: supple, no lymphadenopathy, no bruits, no JVD Lungs: decreased BS bilaterally, mild wheezing Cardio: S1, S2 normal; no murmurs, rubs or gallops Abdomen: soft; non-tender; non-distended; normoactive bowel sounds Extremities: no clubbing, cyanosis, or edema Skin: no rashes Neuro: cranial nerves II through XII grossly intact; sensation grossly intact; muscle strength 5 outof 5 in all four extremities, no focal deficits, alert and oriented x 3 LABS: I reviewed all the relevant patient's new lab test results Recent Results (from the past 24 hour(s)) Basic Metabolic Panel (NA, K, CL, CO2, GLUCOSE, BUN, CREATININE, CA) Collection Time: 02/11/20 3:26 AM Result Value Ref Range NA 137 135 - 145 mmol/L K 4.5 3.5 - 5.0 mmol/L CL 94 (L) 98 - 108 mmol/L CO2 TOTAL 39 (H) 23 - 31 mmol/L AGAP 4 2 - 16 BUN 17 7 - 23 mg/dL GLUCOSE 165 (H) 70 - 110 mg/dL CREATININE 0.42 (L) 0.50 - 1.04 mg/dL CALCIUM 8.7 8.6 - 10.6 mg/dL eGFR Calculation (Non-) 152.4 mL/min/1.73m2 eGFR Calculation () 184.7 mL/min/1.73m2 CBC WITH DIFFERENTIAL Collection Time: 02/11/20 3:26 AM Result Value Ref Range WBC 12.64 (H) 4.30 - 11.10 10*3/L RBC 3.81 (L) 3.93 - 5.25 10*6/L HGB 12.0 11.6 - 15.0 g/dL HCT 37.7 35.7 - 45.2 % MCV 99.0 (H) 80.6 - 95.5 fL MCH 31.5 25.9 - 32.8 pg MCHC 31.8 31.6 - 35.1 g/dL RDW-SD 50.8 (H) 39.0 - 49.9 fL RDW-CV 13.8 12.0 - 15.5 % PLT 267 166 - 358 10*3/L MPV 9.0 (L) 9.5 - 12.9 fL NRBC/100 WBC 0.0 0.0 - 10.0 /100 WBCs NRBC x10^3 <0.01 10*3/L GRAN MAT (NEUT) % 93.5 % IMM GRAN % 0.60 % LYMPH % 3.5 % MONO % 2.3 % EOS % 0.0 % BASO % 0.1 % GRAN MAT x10^3(ANC) 11.83 (H) 1.88 - 7.09 10*3/uL IMM GRAN x10^3 0.07 (H) 0.00 - 0.06 10*3/uL LYMPH x10^3 0.44 (L) 1.32 - 3.29 10*3/uL MONO x10^3 0.29 (L) 0.33 - 0.92 10*3/uL EOS x10^3 <0.03 (L) 0.03 - 0.39 10*3/uL BASO x10^3 <0.03 0.01 - 0.07 10*3/uL IMAGING: I reviewed all the relevant patient's new radiology test results Hospital Encounter on 02/09/20 XR CHEST 1 VW COVID Narrative PROCEDURE: CHEST XRAY CLINICAL INDICATION: dyspnea COMPARISON: Chest radiograph 01/29/2020 FINDINGS: The lungs are emphysematous. Bibasilar subsegmental atelectasis is present. Pericardial fat is prominent. The lungs are otherwise clear. The heart is normal in size. No acute bony abnormality. Right axillary surgical clips are unchanged. Impression No findings suggestive of COVID-19 pneumonia. Disclaimer: Generally, the findings on chest imaging in COVID-19 are not specific, and overlap with other infections, including influenza, H1N1, SARS and MERS. According to the Centers for Disease Control (CDC) and the [place] [employer], viral testing remains the only specific method of diagnosis even if CXR or CT findings are suggestive of COVID-19. Preliminary Report Dictated by Resident: Von Car I, Angel Garcia MD., have reviewed this study and agree with the above report. CT CHEST PULMONARY ANGIOGRAM Narrative PROCEDURE: CT ANGIO CHEST WITH CONTRAST - PE PROTOCOL CLINICAL INDICATION: Shortness of breath COMPARISON: CT 10/06/2016, MR abdomen 11/13/2016, same day chest radiograph. TECHNIQUE AND FINDINGS: A helical CT scan was performed and reconstructed using 1.25 mm slice thickness from the lung bases through the apices after the uncomplicated administration of 100 cc of intravenous Omnipaque contrast. Sagittal and coronal reconstructions, and axial maximum intensity projections were generated and reviewed to further define anatomy and possible pathology. (DFOV = 33.8 cm) FINDINGS: PULMONARY ARTERIES: Technically adequate enhancement of the pulmonary arteries reveals no pulmonary embolism. LINES AND TUBES: None LOWER NECK/THYROID: Streak artifact limits evaluation of the thyroid. No discrete nodules are identified. LUNGS/PLEURA: Changes of upper lobe predominant centrilobular emphysema. Linear densities in the left apex likely represents scarring. Atelectasis is noted in the right lower lobe and lingula. No focal consolidation, pleural effusion, or pneumothorax. Calcified granuloma in the right upper lobe. CENTRAL AIRWAY: No mucous plugging or bronchial wall thickening. Minimal bronchiectasis in the bilateral lower lobes. A focus of traction bronchiectasis in the left lower lobe is unchanged (5:151). MEDIASTINUM: Mediastinal and hilar nodes measure up to 1.0 cm in diameter. Normal cardiac morphology. No pericardial effusion. AORTA AND GREAT VESSELS: Mild to moderate atherosclerotic calcifications affect the aortic arch. The visualized portions of the aorta are normal in caliber. BONES AND SOFT TISSUES: Mild spondylosis of the thoracic spine. Remote bilateral rib fractures. Changes of a right mastectomy and axillary lymph node dissection. VISUALIZED UPPER ABDOMEN: A hypoattenuating lesion in segment was consistent with a hemangioma on prior multiphasic imaging. Hypoattenuating right superior pole cystic structure demonstrates attenuation higher than expected of simple fluid and was consistent with a simple cyst on prior MR imaging. Thickening of the left adrenal gland without a discrete nodule. Impression 1. No pulmonary embolism. 2. Chronic centrilobular emphysematous changes with an upper lobe predominance. Preliminary Report Dictated by Resident: Scout Pope I, Angel Garcia MD., have reviewed this study and agree with the above report. MEDICATIONS: I reviewed the current inpatient medications ordered Current Facility-Administered Medications Medication Dose Route Frequency Last Rate Last Dose doxycycline hyclate (Vibramycin) capsule 100 mg 100 mg Oral Q12HA2 100 mg at 02/11/20 0538 predniSONE (DELTASONE) tablet 50 mg 50 mg Oral DAILY 50 mg at 02/11/20 0857 acetaminophen (TYLENOL) tablet 650 mg 650 mg Oral Q6HPRN budesonide (PULMICORT RESPULE) nebulizer solution 0.5 mg 0.5 mg Inhalation BID 0.5 mg at 02/11/20 0715 enoxaparin (LOVENOX) injection 40 mg 40 mg Subcutaneous DAILY 40 mg at 02/11/20 0856 ipratropium-albuterol (DUONEB) 0.5 mg-3 mg(2.5 mg base)/3 mL nebulizer solution 3 mL 3 mL Inhalation QIDPRN ipratropium-albuterol (DUONEB) 0.5 mg-3 mg(2.5 mg base)/3 mL nebulizer solution 3 mL 3 mL Inhalation QID 3 mL at 02/11/20 1119 nicotine (NICODERM) 21 mg/24 hr patch 1 Patch 1 Patch Topical Q24H 1 Patch at 02/10/20 8545 ondansetron (ZOFRAN (PF)) injection 4 mg 4 mg Slow IV Push Q6HPRN traMADol (ULTRAM) tablet 50 mg 50 mg Oral Q8HPRN Juanpablo Barber RN - 02/11/2020 11:25 AM CDTPt inquiring about having outpt pulmonary rehab set up. notified and consult order entered. Juanpablo Hoff RN, BSN [facility] Gastroenterology Teacher O [phone] F [phone] Rafiq Lindquist MD - 02/10/2020 4:48 PM CDT [facility] Medicine Progress Note Name: Mariana Turner : 1955 Admit Date: 02/09/2020 PCP on file: Yasemin Dietrich ASSESSMENT: Mariana Turner is a 65 year old female with PLAN: # Acute on chronic respiratory failure: secondary to COPD exacerbation # Recurrent COPD exacerbation due to non-compliance # tobacco abuse -- Oxygen supplementation as needed -- continue to complete the previous abx course -- Will continue with duoneb scheduled/prn -- continue oral steroid -- Will order for other supportive therapy (eg, anti-tussive, decongestant) -- patient was counseled for smoking cessation # tachycardia: likely due to bronchodilator use -- monitor # Leukocytosis due to steroid - monitor # h/o right breast ca Dispo: home in 1 d VTE Prophylaxis: enoxaparin Code Status: [facility] FIREFIGHTER TYPE ONE was verified during stay Electronically signed by: Rafiq Tucker MD SUBJECTIVE/ 24-HOUR HOSPITAL EVENTS: 02/09: still has SOB and mild wheezing. OBJECTIVE: Vital signs range: Temp: [36.1 C (97 F)-37.6 C (99.6 F)] 36.7 C (98.1 F) Pulse: [101-110] 109 Resp: [16-29] 16 BP: (115-161)/(66-99) 126/66 Most recent vital signs: BP 126/66 | Pulse 109 | Temp 36.7 C (98.1 F) (Temporal Artery) | Resp 16 | Ht 1.575 m (5' 2") | Wt 56.7 kg (125 lb) | SpO2 97% | BMI 22.86 kg/m I/O: No intake/output data recorded. PHYSICAL EXAM: General: alert and oriented x 4 (person, place, date/time and situation); no apparent distress HEENT: pupils equal, round, reactive to light; extraocular movements intact; oropharynx clear; moistmucous membranes Neck: supple, no lymphadenopathy, no bruits, no JVD Lungs: decreased BS bilaterally Cardio: S1, S2 normal; no murmurs, rubs or gallops Abdomen: soft; non-tender; non-distended; normoactive bowel sounds Extremities: no clubbing, cyanosis, or edema Skin: no rashes Neuro: cranial nerves II through XII grossly intact; sensation grossly intact; muscle strength 5 outof 5 in all four extremities, no focal deficits, alert and oriented x 3 LABS: I reviewed all the relevant patient's new lab test results Recent Results (from the past 24 hour(s)) Basic Metabolic Panel (NA, K, CL, CO2, GLUCOSE, BUN, CREATININE, CA) Collection Time: 02/09/20 7:24 PM Result Value Ref Range NA 131 (L) 135 - 145 mmol/L K 4.4 3.5 - 5.0 mmol/L CL 89 (L) 98 - 108 mmol/L CO2 TOTAL 38 (H) 23 - 31 mmol/L AGAP 4 2 - 16 BUN 16 7 - 23 mg/dL GLUCOSE 103 70 - 110 mg/dL CREATININE 0.59 0.50 - 1.04 mg/dL CALCIUM 8.5 (L) 8.6 - 10.6 mg/dL eGFR Calculation (Non-) 102.9 mL/min/1.73m2 eGFR Calculation () 124.8 mL/min/1.73m2 Hepatic Function Panel (ALB, T.PRO, BILI T, BU/BC, ALT, AST, ALK PHOS) Collection Time: 02/09/20 7:24 PM Result Value Ref Range TOTAL BILI 0.5 0.1 - 1.1 mg/dL BILI UNCON 0.6 0.1 - 1.1 mg/dL BILI CONJ 0.0 0.0 - 0.3 mg/dL T PROTEIN 6.8 6.3 - 8.2 g/dL ALBUMIN 4.2 3.5 - 5.0 g/dL ALK PHOS 45 34 - 122 U/L ALTv 50 (H) 5 - 35 U/L AST(SGOT) 37 13 - 40 U/L Troponin I Collection Time: 02/09/20 7:24 PM Result Value Ref Range TROPONIN I <0.012 <=0.034 ng/mL aPTT Collection Time: 02/09/20 7:24 PM Result Value Ref Range APTT Patient 24 23 - 38 Seconds Prothrombin Time (PT) / INR Collection Time: 02/09/20 7:24 PM Result Value Ref Range PROTIME PATIENT 11.9 (L) 12.0 - 14.7 Seconds INR 0.9 N-TERMINAL PRO-BNP Collection Time: 02/09/20 7:24 PM Result Value Ref Range NT-proBNP 227 (H) <=125 pg/mL CORONAVIRUS COVID-19 TESTING Collection Time: 02/09/20 7:24 PM Result Value Ref Range SARS-CoV-2 Rapid ID NOW Not Detected Not Detected CBC WITH DIFFERENTIAL Collection Time: 02/09/20 7:24 PM Result Value Ref Range WBC 14.59 (H) 4.30 - 11.10 10*3/L RBC 4.23 3.93 - 5.25 10*6/L HGB 13.5 11.6 - 15.0 g/dL HCT 40.7 35.7 - 45.2 % MCV 96.2 (H) 80.6 - 95.5 fL MCH 31.9 25.9 - 32.8 pg MCHC 33.2 31.6 - 35.1 g/dL RDW-SD 50.6 (H) 39.0 - 49.9 fL RDW-CV 14.4 12.0 - 15.5 % PLT 315 166 - 358 10*3/L MPV 9.4 (L) 9.5 - 12.9 fL IPF % 2.4 1.3 - 7.7 % NRBC/100 WBC 0.0 0.0 - 10.0 /100 WBCs NRBC x10^3 <0.01 10*3/L GRAN MAT (NEUT) % 67.3 % IMM GRAN % 0.80 % LYMPH % 22.2 % MONO % 8.4 % EOS % 1.1 % BASO % 0.2 % GRAN MAT x10^3(ANC) 9.83 (H) 1.88 - 7.09 10*3/uL IMM GRAN x10^3 0.11 (H) 0.00 - 0.06 10*3/uL LYMPH x10^3 3.24 1.32 - 3.29 10*3/uL MONO x10^3 1.22 (H) 0.33 - 0.92 10*3/uL EOS x10^3 0.16 0.03 - 0.39 10*3/uL BASO x10^3 0.03 0.01 - 0.07 10*3/uL HYPERSEG NEUTS Present (A) (none) Basic Metabolic Panel (NA, K, CL, CO2, GLUCOSE, BUN, CREATININE, CA) Collection Time: 02/10/20 3:25 AM Result Value Ref Range NA 133 (L) 135 - 145 mmol/L K 5.2 (H) 3.5 - 5.0 mmol/L CL 89 (L) 98 - 108 mmol/L CO2 TOTAL 38 (H) 23 - 31 mmol/L AGAP 6 2 - 16 BUN 19 7 - 23 mg/dL GLUCOSE 151 (H) 70 - 110 mg/dL CREATININE 0.41 (L) 0.50 - 1.04 mg/dL CALCIUM 8.8 8.6 - 10.6 mg/dL eGFR Calculation (Non-) 156.7 mL/min/1.73m2 eGFR Calculation () 189.9 mL/min/1.73m2 CBC WITH DIFFERENTIAL Collection Time: 02/10/20 3:25 AM Result Value Ref Range WBC 16.82 (H) 4.30 - 11.10 10*3/L RBC 4.48 3.93 - 5.25 10*6/L HGB 14.2 11.6 - 15.0 g/dL HCT 43.8 35.7 - 45.2 % MCV 97.8 (H) 80.6 - 95.5 fL MCH 31.7 25.9 - 32.8 pg MCHC 32.4 31.6 - 35.1 g/dL RDW-SD 50.7 (H) 39.0 - 49.9 fL RDW-CV 14.0 12.0 - 15.5 % PLT 319 166 - 358 10*3/L MPV 9.4 (L) 9.5 - 12.9 fL NRBC/100 WBC 0.0 0.0 - 10.0 /100 WBCs NRBC x10^3 <0.01 10*3/L GRAN MAT (NEUT) % 94.4 % IMM GRAN % 0.80 % LYMPH % 4.1 % MONO % 0.5 % EOS % 0.0 % BASO % 0.2 % GRAN MAT x10^3(ANC) 15.87 (H) 1.88 - 7.09 10*3/uL IMM GRAN x10^3 0.14 (H) 0.00 - 0.06 10*3/uL LYMPH x10^3 0.69 (L) 1.32 - 3.29 10*3/uL MONO x10^3 0.09 (L) 0.33 - 0.92 10*3/uL EOS x10^3 <0.03 (L) 0.03 - 0.39 10*3/uL BASO x10^3 0.03 0.01 - 0.07 10*3/uL IMAGING: I reviewed all the relevant patient's new radiology test results Hospital Encounter on 02/09/20 XR CHEST 1 VW COVID Narrative PROCEDURE: CHEST XRAY CLINICAL INDICATION: dyspnea COMPARISON: Chest radiograph 01/29/2020 FINDINGS: The lungs are emphysematous. Bibasilar subsegmental atelectasis is present. Pericardial fat is prominent. The lungs are otherwise clear. The heart is normal in size. No acute bony abnormality. Right axillary surgical clips are unchanged. Impression No findings suggestive of COVID-19 pneumonia. Disclaimer: Generally, the findings on chest imaging in COVID-19 are not specific, and overlap with other infections, including influenza, H1N1, SARS and MERS. According to the Centers for Disease Control (CDC) and the [place] [employer], viral testing remains the only specific method of diagnosis even if CXR or CT findings are suggestive of COVID-19. Preliminary Report Dictated by Resident: Von Car I, Angel Garcia MD., have reviewed this study and agree with the above report. CT CHEST PULMONARY ANGIOGRAM Narrative PROCEDURE: CT ANGIO CHEST WITH CONTRAST - PE PROTOCOL CLINICAL INDICATION: Shortness of breath COMPARISON: CT 10/06/2016, MR abdomen 11/13/2016, same day chest radiograph. TECHNIQUE AND FINDINGS: A helical CT scan was performed and reconstructed using 1.25 mm slice thickness from the lung bases through the apices after the uncomplicated administration of 100 cc of intravenous Omnipaque contrast. Sagittal and coronal reconstructions, and axial maximum intensity projections were generated and reviewed to further define anatomy and possible pathology. (DFOV = 33.8 cm) FINDINGS: PULMONARY ARTERIES: Technically adequate enhancement of the pulmonary arteries reveals no pulmonary embolism. LINES AND TUBES: None LOWER NECK/THYROID: Streak artifact limits evaluation of the thyroid. No discrete nodules are identified. LUNGS/PLEURA: Changes of upper lobe predominant centrilobular emphysema. Linear densities in the left apex likely represents scarring. Atelectasis is noted in the right lower lobe and lingula. No focal consolidation, pleural effusion, or pneumothorax. Calcified granuloma in the right upper lobe. CENTRAL AIRWAY: No mucous plugging or bronchial wall thickening. Minimal bronchiectasis in the bilateral lower lobes. A focus of traction bronchiectasis in the left lower lobe is unchanged (5:151). MEDIASTINUM: Mediastinal and hilar nodes measure up to 1.0 cm in diameter. Normal cardiac morphology. No pericardial effusion. AORTA AND GREAT VESSELS: Mild to moderate atherosclerotic calcifications affect the aortic arch. The visualized portions of the aorta are normal in caliber. BONES AND SOFT TISSUES: Mild spondylosis of the thoracic spine. Remote bilateral rib fractures. Changes of a right mastectomy and axillary lymph node dissection. VISUALIZED UPPER ABDOMEN: A hypoattenuating lesion in segment was consistent with a hemangioma on prior multiphasic imaging. Hypoattenuating right superior pole cystic structure demonstrates attenuation higher than expected of simple fluid and was consistent with a simple cyst on prior MR imaging. Thickening of the left adrenal gland without a discrete nodule. Impression 1. No pulmonary embolism. 2. Chronic centrilobular emphysematous changes with an upper lobe predominance. Preliminary Report Dictated by Resident: Scout Pope I, Angel Garcia MD., have reviewed this study and agree with the above report. MEDICATIONS: I reviewed the current inpatient medications ordered Current Facility-Administered Medications Medication Dose Route Frequency Last Rate Last Dose doxycycline hyclate (Vibramycin) capsule 100 mg 100 mg Oral Q12HA2 LORazepam (ATIVAN) injection 0.5 mg 0.5 mg Slow IV Push PRN 0.5 mg at 02/10/20 0136 predniSONE (DELTASONE) tablet 50 mg 50 mg Oral DAILY acetaminophen (TYLENOL) tablet 650 mg 650 mg Oral Q6HPRN budesonide (PULMICORT RESPULE) nebulizer solution 0.5 mg 0.5 mg Inhalation BID 0.25 mg at 02/10/20 0724 enoxaparin (LOVENOX) injection 40 mg 40 mg Subcutaneous DAILY 40 mg at 02/10/20 1028 ipratropium-albuterol (DUONEB) 0.5 mg-3 mg(2.5 mg base)/3 mL nebulizer solution 3 mL 3 mL Inhalation QIDPRN ipratropium-albuterol (DUONEB) 0.5 mg-3 mg(2.5 mg base)/3 mL nebulizer solution 3 mL 3 mL Inhalation QID 3 mL at 02/10/20 1512 nicotine (NICODERM) 21 mg/24 hr patch 1 Patch 1 Patch Topical Q24H 1 Patch at 02/09/20 2126 ondansetron (ZOFRAN (PF)) injection 4 mg 4 mg Slow IV Push Q6HPRN traMADol (ULTRAM) tablet 50 mg 50 mg Oral Q8HPRN Desiree Contreras LBSW - 02/10/2020 11:31 AM CDTSubjective Patient ID: Mariana Turner is a 65 year old female. Care Management Social Functional Assessment Patient Name: Mariana Turner Age: [age] year old Sex: female Patient's Previous Admission Date at [facility]: 01/29/2020 Current diagnosis and co-morbidities: COPD exacerbation Readmission Questions: Was patient discharged from any acute care hospital within the last 30 days: Yes Were all questions regarding previous illness/diagnosis answered prior to discharge: Yes Did you have any difficulties with your discharge instructions: No Any difficulties after discharge with medications: No Any difficulties after discharge with transportation: No Any difficulties after discharge with physical conditions, support, or other limitations?: No Did patient refuse services that were recommended on the previous admission: No Was patient non-compliant with the previously recommended treatment: No If admitted from the ED did you call your primary MD or place a sick call/request with your provider?: N/A Social Functional Assessment: Primary language spoken/preferred: American Mental Status: Alert & Oriented to Person,Place & Time Information given by: Self Patient's support system: Other Name and number of support system: Stella Patel, band shover [phone] and Charlotte Eve, [phone] Primary Neurology Physician: Self MPOA: No Living Arrangement: Home Address of living arrangement : [address] [place] [address] [address] [facility] [address] Persons living in home: Self Barriers to returning home: None Baseline functional status- ambulation: Independent Functional status-baseline personal care: Independent Baseline functional status- driving: Dependent Baseline functional status- grocery shopping: Independent Functional status-baseline housekeeping: Independent Functional status-baseline meal prep: Independent Current functional status same as prior: Yes Do you have a PCP?: Yes Name of PCP: Yasemin Dietrich Home Health Care Agency: Yes Name of Home Health Agency: [address] () [phone] (F) [phone] Previous or current Home Health Care Agency: Current Provider Services: No DME Company: Yes Name of DME company: [facility] [address], [address], [place] [address] (Ph) [phone] (F) [phone] Previous or current DME company: Current Equipment: O2:Portable tank available;O2: LPM;Nebulizer Hemodialysis: No Community resources utilized: None Funding Resources: Medicare Replacement;Medicaid Medicare Replacement name and information: [facility] Prescription coverage plan: Medicaid-3 slots Pharmacy where meds are filled: Other Other pharmacy: [facility] Anticipated services prior to disharge: Continue Medical Eval Expected mode of discharge transportation: Same as support system Additional Recommendations for DC: medical clearance Additional info required for discharge planning: Pending medical evaluation Recommended discharge plan: Home;Update/Resume orders SFA Complete: Social Functional Assessment complete: Yes Alcohol Use Screening (AUDIT-C) How often do you have a drink containing alcohol?: Never SCORE: 0 Did patient elect to have resources provided: No Role of Care Management explained. Any issues or concerns with obtaining/affording your medications at home: no. Are you or your support system able to picker tender helper medications at discharge: yes. Review of Systems Objective Physical Exam Assessment/Plan Home and will resume [facility] [employer] Integrator - Care Management [facility] [phone] [email or web address] documented in this encounter Plan of Treatment Date Type Specialty Care Team Description 02/18/2020 Office Visit Family Medicine Bruno Cleaning MD [address] [id number] 03/11/2020 Office Visit Cardiology Saray Almaguer MD [address] [place] [address] [place] [address] [phone] 05/06/2020 Office Visit Pulmonary Disease Bimal Klein DO [address] [place] [phone] Name Type Priority Associated Diagnoses Order S chedule CBC with Differential LAB Routine EVERY MORNING AT 0400 for 5 Occurrenc es starting 2019 until 0, 4 completed Basic Metabolic Panel (NA, LAB Routine E VERY MORNING AT 0400 K, CL, CO2, GLUCOSE, BUN, fo r 5 Occurrences CREATININE, CA) starting until 0, 4 completed Health Maintenance Due [...] encounter Procedures Procedure Name Priority Date/Time Associated Diagnosis Comme nts CBC WITH DIFFERENTIAL Routine 02/13/2020 5:03 Re sults for this AM CDT procedure are i n the results section. CBC WITH DIFFERENTIAL Routine 02/13/2020 5:03 Re sults for this AM CDT procedure are i n the results section. BASIC METABOLIC PANEL Routine 02/13/2020 5:03 Re sults for this (NA, K, CL, CO2, AM CDT procedure a re in GLUCOSE, BUN, the results CREATININE, CA) section. CBC WITH DIFFERENTIAL Routine 02/12/2020 4:15 Re sults for this AM CDT procedure are i n the results section. CBC WITH DIFFERENTIAL Routine 02/12/2020 4:15 Re sults for this AM CDT procedure are i n the results section. BASIC METABOLIC PANEL Routine 02/12/2020 4:15 Re sults for this (NA, K, CL, CO2, AM CDT procedure a re in GLUCOSE, BUN, the results CREATININE, CA) section. CBC WITH DIFFERENTIAL Routine 02/11/2020 3:26 Re sults for this AM CDT procedure are i n the results section. CBC WITH DIFFERENTIAL Routine 02/11/2020 3:26 Re sults for this AM CDT procedure are i n the results section. BASIC METABOLIC PANEL Routine 02/11/2020 3:26 Re sults for this (NA, K, CL, CO2, AM CDT procedure a re in GLUCOSE, BUN, the results CREATININE, CA) section. CBC WITH DIFFERENTIAL Routine 02/10/2020 3:25 Re sults for this AM CDT procedure are i n the results section. CBC WITH DIFFERENTIAL Routine 02/10/2020 3:25 Re sults for this AM CDT procedure are i n the results section. BASIC METABOLIC PANEL Routine 02/10/2020 3:25 Re sults for this (NA, K, CL, CO2, AM CDT procedure a re in GLUCOSE, BUN, the results CREATININE, CA) section. CT CHEST PULMONARY STAT 02/09/2020 9:14 Dyspnea, unspecifi ed Results for this ANGIOGRAM PM CDT type procedure are i n the results section. XR CHEST 1 VW COVID STAT 02/09/2020 8:22 Dyspnea, unspecif ied Results for this PM CDT type procedure are i n the results section. COVID-19 (PCR STAT 02/09/2020 7:24 Dyspnea, unspecified Re sults for this MOLECULAR TESTING) PM CDT type procedure are in the results section. CBC WITH DIFFERENTIAL STAT 02/09/2020 7:24 Dyspnea, unspec ified Results for this PM CDT type procedure are i n the results section. N-TERMINAL PRO-BNP STAT 02/09/2020 7:24 Dyspnea, unspecifi ed Results for this PM CDT type procedure are i n the results section. ACTIVATED PARTIAL STAT 02/09/2020 7:24 Dyspnea, unspecifie d Results for this THRMPLAS LO PM CDT type procedure are i n the results section. PROTHROMBIN TIME / STAT 02/09/2020 7:24 Dyspnea, unspecifi ed Results for this INR PM CDT type procedure are i n the results section. CBC WITH DIFFERENTIAL Routine 02/09/2020 7:24 Dyspnea, unspec ified Results for this PM CDT type procedure are i n the results section. BASIC METABOLIC PANEL STAT 02/09/2020 7:24 Dyspnea, unspec ified Results for this (NA, K, CL, CO2, PM CDT type procedure a re in GLUCOSE, BUN, the results CREATININE, CA) section. HEPATIC FUNCTION STAT 02/09/2020 7:24 Dyspnea, unspecified Results for this PANEL (07374) PM CDT type procedure are in (ALB,T.PRO,BILI the results T,BU/BC,ALT,AST,ALK section. PHOS) TROPONIN I STAT 02/09/2020 7:24 Dyspnea, unspecified Res ults for this PM CDT type procedure are i n the results section. EKG-12 LEAD Routine 02/09/2020 7:15 PM CDT EKG-12 LEAD STAT 02/09/2020 6:59 PM CDT documented in this encounter Results CBC WITH DIFFERENTIAL (02/13/2020 5:03 AM CDT) Pathologist Sig nature WBC 13.53 (H) 4.30 - 11.10 [facility] 10*3/L [facility] RBC 3.94 3.93 - 5.25 [facility] 10*6/L [facility] HGB 12.3 11.6 - 15.0 [facility] g/dL [facility] HCT 38.5 35.7 - 45.2 % [facility] MCV 97.7 (H) 80.6 - 95.5 fL [facility] MCH 31.2 25.9 - 32.8 pg [facility] MCHC 31.9 31.6 - 35.1 [facility] g/dL [facility] RDW-SD 51.2 (H) 39.0 - 49.9 fL [facility] RDW-CV 14.2 12.0 - 15.5 % [facility] PLT 255 166 - 358 [facility] 10*3/L [facility] MPV 9.1 (L) 9.5 - 12.9 fL [facility] NRBC/100 WBC 0.0 0.0 - 10.0 /100 [facility] WBCs [facility] NRBC x10^3 <0.01 10*3/L [facility] GRAN MAT (NEUT) % 73.4 % [facility] IMM GRAN % 0.40 % [facility] LYMPH % 18.1 % [facility] MONO % 7.6 % [facility] EOS % 0.4 % [facility] BASO % 0.1 % [facility] GRAN MAT x10^3(ANC) 9.93 (H) 1.88 - 7.09 [facility] 10*3/uL [facility] IMM GRAN x10^3 0.05 0.00 - 0.06 [facility] 10*3/uL [facility] LYMPH x10^3 2.45 1.32 - 3.29 [facility] 10*3/uL [facility] MONO x10^3 1.03 (H) 0.33 - 0.92 [facility] 10*3/uL [facility] EOS x10^3 0.06 0.03 - 0.39 [facility] 103/uL [facility] BASO x10^3 <0.03 0.01 - 0.[address] LABORATORY Specimen Blood - ARM, LEFT Performing Organization Address City/State/Zipcode Phone Number [facility] CLIA: [id number], [address] [place], [place] [address] Basic Metabolic Panel (NA, K, CL, CO2, GLUCOSE, BUN, CREATININE, CA) (02/13/2020 5:03 AM CDT) NA 139 135 - 145 [facility] mmol/L [facility] K 4.1 3.5 - 5.0 [facility] mmol/L [facility] CL 97 (L) 98 - 108 mmol/L [facility] CO2 TOTAL 41 (H) 23 - 31 mmol/L [facility] AGAP 1 (L) 2 - 16 [facility] BUN 18 7 - 23 mg/dL [facility] GLUCOSE 88 70 - 110 mg/dL [facility] CREATININE 0.48 (L) 0.50 - 1.04 [facility] mg/dL [facility] CALCIUM 8.8 8.6 - 10.6 [facility] mg/dL [facility] eGFR Calculation 130.6 mL/min/1.73m2 [facility] (Non[facility] [place]) eGFR Calculation 158.3 mL/min/1.73m2 [facility] () [facility] Specimen Blood - ARM, LEFT Narrative Performed At [facility] Glomerular Filtration Rate (GFR) [facility] and Staging of Kidney Disease* [...] tests). Performing Organization Address City/State/Zipcode Phone Number [facility] CLIA: [id number], [address] [place] [address] CBC WITH DIFFERENTIAL (02/12/2020 4:15 AM CDT) [facility] WBC 13.06 (H) 4.30 - 11.10 [facility] 10*3/L [facility] RBC 3.76 (L) 3.93 - 5.25 [facility] 10*6/L [facility] HGB 12.0 11.6 - 15.0 [facility] g/dL [facility] HCT 38.4 35.7 - 45.2 % [facility] MCV 102.1 (H) 80.6 - 95.5 fL [facility] MCH 31.9 25.9 - 32.8 pg [facility] MCHC 31.3 (L) 31.6 - 35.1 [facility] g/dL [facility] RDW-SD 53.7 (H) 39.0 - 49.9 fL [facility] RDW-CV 14.1 12.0 - 15.5 % [facility] PLT 274 166 - 358 [facility] 10*3/L [facility] MPV 9.3 (L) 9.5 - 12.9 fL [facility] NRBC/100 WBC 0.0 0.0 - 10.0 /100 [facility] WBCs [facility] NRBC x10^3 <0.01 10*3/L [facility] GRAN MAT (NEUT) % 77.4 % [facility] IMM GRAN % 1.10 % [facility] LYMPH % 13.5 % [facility] MONO % 7.6 % [facility] EOS % 0.2 % [facility] BASO % 0.2 % [facility] GRAN MAT x10^3(ANC) 10.13 (H) 1.88 - 7.09 [facility] 10*3/uL HOSPITAL LAB[facility]ATORY IMM GRAN x10^3 0.14 (H) 0.00 - 0.06 [facility] 10*3/uL H[facility]ITAL [facility] LYMPH x10^3 1.76 1.32 - 3.29 [facility] 10*3/uL H[facility]PITAL [facility] MONO x10^3 0.99 (H) 0.33 - 0.92 [facility] 10*3/uL [facility] EOS x10^3 <0.03 (L) 0.03 - 0.39 [facility] 10*3/uL HOSPITAL [facility] BASO x10^3 <0.03 0.01 - 0.07 [facility] 10*3/uL [facility] Specimen Blood - ARM, LEFT Performing Organization Address City/State/Zipcode Phone Number [facility] CLIA: [id number], [address] [place] [address] Basic Metabolic Panel (NA, K, CL, CO2, GLUCOSE, BUN, CREATININE, CA) (02/12/2020 4:15 AM CDT) NA 138 135 - 145 [facility] mmol/L [facility] K 4.2 3.5 - 5.0 [facility] mmol/L [facility] CL 94 (L) 98 - 108 mmol/L [facility] CO2 TOTAL 40 (H) 23 - 31 mmol/L [facility] AGAP 4 2 - 16 [facility] BUN 24 (H) 7 - 23 mg/dL [facility] GLUCOSE 98 70 - 110 mg/dL [facility] CREATININE 0.47 (L) 0.50 - 1.04 [facility] mg/dL [facility] CALCIUM 8.8 8.6 - 10.6 [facility] mg/dL [facility] eGFR Calculation 133.8 mL/min/1.73m2 [facility] ([facility] [place]) eGFR Calculation 162.2 mL/min/1.73m2 [facility] () [facility] Specimen Blood - ARM, LEFT Narrative Performed At [facility] Glomerular Filtration Rate (GFR) [facility] and Staging of Kidney Disease* [...] tests). Performing Organization Address City/State/Zipcode Phone Number [facility] CLIA: [id number], [address] [place], [place] [address] CBC WITH DIFFERENTIAL (02/11/2020 3:26 AM CDT) Pathologist Sig nature WBC 12.64 (H) 4.30 - 11.10 [facility] 10*3/L [facility] RBC 3.81 (L) 3.93 - 5.25 [facility] 10*6/L [facility] HGB 12.0 11.6 - 15.0 [facility] g/dL [facility] HCT 37.7 35.7 - 45.2 % [facility] MCV 99.0 (H) 80.6 - 95.5 fL [facility] MCH 31.5 25.9 - 32.8 pg [facility] MCHC 31.8 31.6 - 35.1 [facility] g/dL [facility] RDW-SD 50.8 (H) 39.0 - 49.9 fL [facility] RDW-CV 13.8 12.0 - 15.5 % [facility] PLT 267 166 - 358 [facility] 10*3/L [facility] MPV 9.0 (L) 9.5 - 12.9 fL [facility] NRBC/100 WBC 0.0 0.0 - 10.0 /100 [facility] WBCs [facility] NRBC x10^3 <0.01 10*3/L [facility] GRAN MAT (NEUT) % 93.5 % [facility] IMM GRAN % 0.60 % [facility] LYMPH % 3.5 % [facility] MONO % 2.3 % [facility] EOS % 0.0 % [facility] BASO % 0.1 % [facility] GRAN MAT x10^3(ANC) 11.83 (H) 1.88 - 7.09 [facility] 10*3/uL [facility] IMM GRAN x10^3 0.07 (H) 0.00 - 0.06 [facility] 10*3/uL [facility] LYMPH x10^3 0.44 (L) 1.32 - 3.29 [facility] 10*3/uL [facility] MONO x10^3 0.29 (L) 0.33 - 0.92 [facility] 10*3/uL [facility] EOS x10^3 <0.03 (L) 0.03 - 0.39 [facility] 10*3/uL [facility] BASO x10^3 <0.03 0.01 - 0.07 [facility] 10*3/uL [facility] Specimen Blood - ARM, LEFT Performing Organization Address City/State/Zipcode Phone Number [facility] CLIA: [id number], [address] [place], [place] [address] Basic Metabolic Panel (NA, K, CL, CO2, GLUCOSE, BUN, CREATININE, CA) (02/11/2020 3:26 AM CDT) NA 137 135 - 145 [facility] mmol/L [facility] K 4.5 3.5 - 5.0 [facility] mmol/L [facility] CL 94 (L) 98 - 108 mmol/L [facility] CO2 TOTAL 39 (H) 23 - 31 mmol/L [facility] AGAP 4 2 - 16 [facility] BUN 17 7 - 23 mg/dL [facility] GLUCOSE 165 (H) 70 - 110 mg/dL [facility] CREATININE 0.42 (L) 0.50 - 1.04 [facility] mg/dL [facility] CALCIUM 8.7 8.6 - 10.6 [facility] mg/dL [facility] eGFR Calculation 152.4 mL/min/1.73m2 [facility] ([facility] [place]) eGFR Calculation 184.7 mL/min/1.73m2 [facility] () [facility] Specimen Blood - ARM, LEFT Narrative Performed At [facility] of Glomerular Filtration Rate (GFR) [facility] and Staging of Kidney Disease* [...] tests). Performing Organization Address City/State/Zipcode Phone Number [facility] CLIA: [id number], [address] [place], [place] [address] CBC WITH DIFFERENTIAL (02/10/2020 3:25 AM CDT) [facility] WBC 16.82 (H) 4.30 - 11.10 [facility] 10*3/L HOSPITAL LAB[facility]ATORY RBC 4.48 3.93 - 5.25 [facility] 10*6/L H[facility]ITAL [facility] HGB 14.2 11.6 - 15.0 [facility] g/dL HOSPITAL [facility] HCT 43.8 35.7 - 45.2 % [facility] MCV 97.8 (H) 80.6 - 95.5 fL [facility] MCH 31.7 25.9 - 32.8 pg [facility] MCHC 32.4 31.6 - 35.1 [facility] g/dL [facility] RDW-SD 50.7 (H) 39.0 - 49.9 fL [facility] RDW-CV 14.0 12.0 - 15.5 % [facility] PLT 319 166 - 358 [facility] 10*3/L [facility] MPV 9.4 (L) 9.5 - 12.9 fL [facility] NRBC/100 WBC 0.0 0.0 - 10.0 /100 [facility] WBCs [facility] NRBC x10^3 <0.01 10*3/L [facility] GRAN MAT (NEUT) % 94.4 % [facility] IMM GRAN % 0.80 % [facility] LYMPH % 4.1 % [facility] MONO % 0.5 % [facility] EOS % 0.0 % [facility] BASO % 0.2 % [facility] GRAN MAT x10^3(ANC) 15.87 (H) 1.88 - 7.09 [facility] 10*3/uL HOSPITAL [facility] IMM GRAN x10^3 0.14 (H) 0.00 - 0.06 [facility] 10*3/uL H[facility]ITAL [facility] LYMPH x10^3 0.69 (L) 1.32 - 3.29 [facility] 10*3/uL [facility]ITAL [facility] MONO x10^3 0.09 (L) 0.33 - 0.92 [facility] 10*3/uL H[facility]ITAL [facility] EOS x10^3 <0.03 (L) 0.03 - 0.39 [facility] 10*3/uL [facility] BASO x10^3 0.03 0.01 - 0.07 [facility] 10*3/uL [facility] Specimen Blood - HAND, LEFT Performing Organization Address City/State/Zipcode Phone Number [facility] CLIA: [id number], [address] [address] Basic Metabolic Panel (NA, K, CL, CO2, GLUCOSE, BUN, CREATININE, CA) (02/10/2020 3:25 AM CDT) NA 133 (L) 135 - 145 [facility] mmol/L [facility] K 5.2 (H) 3.5 - 5.0 [facility] mmol/L [facility] CL 89 (L) 98 - 108 mmol/L [facility] CO2 TOTAL 38 (H) 23 - 31 mmol/L [facility] AGAP 6 2 - 16 [facility] BUN 19 7 - 23 mg/dL [facility] GLUCOSE 151 (H) 70 - 110 mg/dL [facility] CREATININE 0.41 (L) 0.50 - 1.04 [facility] mg/dL [facility] CALCIUM 8.8 8.6 - 10.6 [facility] mg/dL [facility] eGFR Calculation 156.7 mL/min/1.73m2 [facility] ([facility] [place]) eGFR Calculation 189.9 mL/min/1.73m2 [facility] () [facility] Specimen Blood - HAND, LEFT Narrative Performed At [facility] Glomerular Filtration Rate (GFR) [facility] and Staging of Kidney Disease* [...] tests). Performing Organization Address City/State/Zipcode Phone Number [facility] CLIA: [id number], [address] [place] [address] CHEST PULMONARY ANGIOGRAM (02/09/2020 9:14 PM CDT) Specimen Impressions Performed At PACS/VR/DOSE 1. No pulmonary embolism. 2. Chronic centrilobular emphysematous c hanges with an upper lobe predominance. Preliminary Report Dictated by Resident: Scout Pope I, Angel Garcia MD., have reviewed this study and agree with the above report. Narrative Performed At PROCEDURE: CT ANGIO CHEST WITH CONTRAST - PE PROTOCOL PACS/VR/DOSE CLINICAL INDICATION: Shortness of breath COMPARISON: CT 10/06/2016, MR abdomen 11/13/2016, same d ay chest radiograph. TECHNIQUE AND FINDINGS: A helical CT scan was performe d and reconstructed using 1.25 mm slice thickness from the lung bases thro ugh the apices after the uncomplicated administration of 100 cc of intravenous Omnipaque contrast. Sagittal and coronal reconstructions, and ax ial maximum intensity projections were generated and reviewed to further define anatomy and possible pathology. (DFOV = 33.8 cm) FINDINGS: PULMONARY ARTERIES: Technically adequate enhancement of the pulmonary arteries reveals no pulmonary embolism. LINES AND TUBES: None LOWER NECK/THYROID: Streak artifact limi ts evaluation of the thyroid. No discrete nodules are identified. LUNGS/PLEURA: Changes of upper lobe pred ominant centrilobular emphysema. Linear densities in the left apex likely represents sc arring. Atelectasis is noted in the right lower lobe and viry gula. No focal consolidation, pleural effusion, or pneumothorax. Calcified granuloma in the right upper l obe. CENTRAL AIRWAY: No mucous plugging or br onchial wall thickening. Minimal bronchiectasis in the bilateral lower lo bes. A focus of traction bronchiectasis in the left lower lobe is unchanged (5:151). MEDIASTINUM: Mediastinal and hilar nodes measure up to 1.0 cm in diameter. Normal cardiac morphology. No pericardia l effusion. AORTA AND GREAT VESSELS: Mild to moderat e atherosclerotic calcifications affect the aortic arch. The visualized portions of the aorta are normal in caliber. BONES AND SOFT TISSUES: Mild spondylosis of the thoracic spine. Remote bilateral rib fractures. Changes of a right mastectomy and axilla ry lymph node dissection. VISUALIZED UPPER ABDOMEN: A hypoattenuat ing lesion in segment was consistent with a hemangioma on prior multiphasic imag ing. Hypoattenuating right superior pole cystic structure demonstrates atte nuation higher than expected of simple fluid and was consistent with a sim ple cyst on prior MR imaging. Thickening of the left adrenal gland without a discrete nodule. Procedure Note [facility], Radiant Results Inft User - 2019 2:20 AM CDT PROCEDURE: CT ANGIO CHEST WITH CONTRAST - PE PROTOCOL CLINICAL INDICATION: Shortness of breath COMPARISON: CT 10/06/2016, MR abdomen 10/25, same day chest radiograph. TECHNIQUE AND FINDINGS: A helical CT sca n was performed and reconstructed using 1.25 mm slice thickness from the l annette bases through the apices after the uncomplicated administration of 100 cc of intravenous Omnipaque contrast. Sagittal and coronal reconstru ctions, and axial maximum intensity projections were generated and reviewed to further define anatomy and possible pathology. (DFOV = 33.8 cm) FINDINGS: PULMONARY ARTERIES: Technically adequate enhancement of the pulmonary arteries reveals no pulmonary embolism. LINES AND TUBES: None LOWER NECK/THYROID: Streak artifact limi ts evaluation of the thyroid. No discrete nodules are identified. LUNGS/PLEURA: Changes of upper lobe pred ominant centrilobular emphysema. Linear densities in the left apex likely represents scarring. Atelectasis is noted in the right lower lobe and viry gula. No focal consolidation, pleural effusion, or pneumothorax. Calcified granuloma in the right upper l obe. CENTRAL AIRWAY: No mucous plugging or br onchial wall thickening. Minimal bronchiectasis in the bilateral lower lo bes. A focus of traction bronchiectasis in the left lower lobe is unchanged (5:151). MEDIASTINUM: Mediastinal and hilar nodes measure up to 1.0 cm in diameter. Normal cardiac morphology. No pericardia l effusion. AORTA AND GREAT VESSELS: Mild to moderat e atherosclerotic calcifications affect the aortic arch. The visualized p ortions of the aorta are normal in caliber. BONES AND SOFT TISSUES: Mild spondylosis of the thoracic spine. Remote bilateral rib fractures. Changes of a right mastectomy and axilla ry lymph node dissection. VISUALIZED UPPER ABDOMEN: A hypoattenuat ing lesion in segment was consistent with a hemangioma on prior mu ltiphasic imaging. Hypoattenuating right superior pole cystic structure dem onstrates attenuation higher than expected of simple fluid and was consist ent with a simple cyst on prior MR imaging. Thickening of the left adrenal gland without a discrete nodule. IMPRESSION 1. No pulmonary embolism. 2. Chronic centrilobular emphysematous c hanges with an upper lobe predominance. Preliminary Report Dictated by Resident: Angel Bruce MD., have reviewed th is study and agree with the above report. Performing Organization Address City/State/Zipcode Phone Number PACS/VR/DOSE XR CHEST 1 VW COVID (02/09/2020 8:22 PM CDT) Specimen Impressions Performed At PACS/VR/DOSE No findings suggestive of COVID-19 pneum onia. Disclaimer: Generally, the findings on c hest imaging in COVID-19 are not specific, and overlap with other infecti ons, including influenza, H1N1, SARS and MERS. According to the Centers for Disease Control (CDC) and the [place] [employer], viral testing remains the only specific method of diagnosis even if CXR or CT findings are suggestiv e of COVID-19. Preliminary Report Dictated by Resident: Angel Mayo MD., have reviewed this study and agree with the above report. Narrative Performed At PROCEDURE: CHEST XRAY PACS/VR/DOSE CLINICAL INDICATION: dyspnea COMPARISON: Chest radiograph 01/29/2020 FINDINGS: The lungs are emphysematous. Bibasilar subsegmental at electasis is present. Pericardial fat is prominent. The lungs are otherwise clear. The heart is normal in size. No acute [place]ose [place] abnormality. Right axillary surgical clips are unchanged. Procedure Note [facility], Radiant Results Inft User - 2019 12:38 AM CDT PROCEDURE: CHEST XRAY CLINICAL INDICATION: dyspnea COMPARISON: Chest radiograph 01/29/2020 FINDINGS: The lungs are emphysematous. Bibasilar s ubsegmental atelectasis is present. Pericardial fat is prominent. The lungs are otherwise clear. The heart is normal in size. No acute [place] abnormality. Right axillary surgical clips are unchanged. IMPRESSION No findings suggestive of COVID-19 pneum onia. Disclaimer: Generally, the findings on c hest imaging in COVID-19 are not specific, and overlap with other infecti ons, including influenza, H1N1, SARS and MERS. According to the Centers for Disease Con trol (CDC) and the [place] [employer], viral testing remains the only specific method of diagnosis even if CXR or CT findings are suggestiv e of COVID-19. Preliminary Report Dictated by Resident: Von Car I, Angel Garcia MD., have reviewed [facility] study and agree with the above report. Performing Organization Address City/State/Zipcode Phone Number PACS/VR/DOSE CBC WITH DIFFERENTIAL (02/09/2020 7:24 PM CDT) WBC 14.59 (H) 4.30 - 11.10 [facility] 10*3/L [facility] RBC 4.23 3.93 - 5.25 [facility] 10*6/L [facility] HGB 13.5 11.6 - 15.0 [facility] g/dL [facility] HCT 40.7 35.7 - 45.2 % [facility] MCV 96.2 (H) 80.6 - 95.5 [facility] LABORATORY MCH 31.9 25.9 - 32.8 [facility] LABORATORY MCHC 33.2 31.6 - 35.1 [facility] g/dL [facility] RDW-SD 50.6 (H) 39.0 - 49.9 [facility]ITAL LAB[facility] RDW-CV 14.4 12.0 - 15.5 % [facility] PLT 315 166 - 358 [facility] 10*3/L [facility] MPV 9.4 (L) 9.5 - 12.9 fL [facility] IPF % 2.4Comment: Platelet 1.3 - 7.7 % [facility] count measured by HOSPITAL fluorescence method. LABORATORY NRBC/100 WBC 0.0 0.0 - 10.0 [facility] /100 WBCs [facility] NRBC x10^3 <0.01 10*3/L [facility] GRAN MAT (NEUT) % 67.3 % [facility] IMM GRAN % 0.80 % [facility] LYMPH % 22.2 % [facility] MONO % 8.4 % [facility] EOS % 1.1 % [facility] BASO % 0.2 % [facility] GRAN MAT 9.83 (H) 1.88 - 7.09 [facility] x10^3(ANC) 10*3/uL HOSPITAL LAB[facility]ORY IMM GRAN x10^3 0.11 (H) 0.00 - 0.06 [facility] 10*3/uL [facility] LYMPH x10^3 3.24 1.32 - 3.29 [facility] 10*3/uL [facility]OS[facility]ITAL [facility] MONO x10^3 1.22 (H) 0.33 - 0.92 [facility] 10*3/uL [facility] EOS x10^3 0.16 0.03 - 0.39 [facility] 10*3/uL [facility] BASO x10^3 0.03 0.01 - 0.07 [facility] 10*3/uL [facility] HYPERSEG NEUTS Present (A) (none) [facility] Specimen Blood - VENOUS Performing Organization Address [facility] Phone Number [facility] CLIA: [id number], [address] [place], [place] [address] CORONAVIRUS COVID-19 TESTING (02/09/2020 7:24 PM CDT) SARS-CoV-2 Rapid ID Not Detected Not Detected [facility] Specimen Swab - NASOPHARYNGEAL SWAB Narrative Performed At [facility] COVID-19 Assay is an isothermal nucleic [facility] acid amplification test intended for the qualitative detection of nucleic acid from SARS-CoV-2 viral RNA in nasopharyngeal ([employer]SH[employer]) specimens. It is used under Emergency Use [...] testing if clinically indicated. Performing Organization Address City/[facility]/Zipcode Phone Number [facility] CLIA: [id number], [address] [place], [place] [address] N-TERMINAL PRO-BNP (02/09/2020 7:24 PM CDT) Pathologist Sig nature NT-proBNP 227 (H) <=125 pg/mL [facility] Specimen Blood - VENOUS Narrative Performed At Biotin has been reported to cause a negative [facility] bias, interpret results relative to patient's use of biotin. Performing Organization Address City/State/[facility] Hospital[facility] Phone Number [facility] CLIA: [id number], [address] [place], [place] [address] Prothrombin Time (PT) / INR (02/09/2020 7:24 PM CDT) PROTIME PATIENT 11.9 (L) 12.0 - 14.7 [facility] LABORATORY INR 0.9Comment: Normal [facility] INR <1.1; Warfarin [facility] Therapeutic range LABORATORY 2.0 to 3.0 or 2.5 to 3.5, depending upon the indications. Specimen Blood - VENOUS Performing Organization Address [facility] Hospital[facility] Phone Number [facility] CLIA: [id number], [address] [place], [place] [address] aPTT (02/09/2020 7:24 PM CDT) [facility] APTT Patient 24 23 - 38 Seconds [facility] Specimen Blood - VENOUS Narrative Performed At The [facility] patient population mean normal value [facility] for aPTT is 30 seconds. Performing Organization Address City/[facility]/Zipcode Phone Number [facility] CLIA: [id number], [address] [place], [place] [address] Troponin I (02/09/2020 7:24 PM CDT) Pathologist Sig nature TROPONIN I <0.012 <=0.034 ng/mL [facility] Specimen Blood - VENOUS Narrative Performed At Equal or Less than 0.034 ng/ml---Normal [facility] Note: Cardiac troponin begins to rise [...] patient's use of biotin. Performing Organization Address [facility] Phone Number [facility] CLIA: [id number], [address] [place] [address] Hepatic Function Panel (ALB, T.PRO, BILI T, BU/BC, ALT, AST, ALK PHOS) (02/09/2020 7:24 PM CDT) Pathologist Sig Mobile Experience TOTAL BILI 0.5 0.1 - 1.1 mg/dL [facility] BILI UNCON 0.6 0.1 - 1.1 mg/dL [facility] BILI CONJ 0.0 0.0 - 0.3 mg/dL [facility] T PROTEIN 6.8 6.3 - 8.2 g/dL [facility] ALBUMIN 4.2 3.5 - 5.0 g/dL [facility] ALK PHOS 45 34 - 122 U/L [facility] ALTv 50 (H) 5 - 35 U/L [facility] AST(SGOT) 37 13 - 40 U/L [facility] Specimen Blood - VENOUS Performing Organization Address [facility] Phone Number [facility] CLIA: [id number], [address] [place] [address] Basic Metabolic Panel (NA, K, CL, CO2, GLUCOSE, BUN, CREATININE, CA) (02/09/2020 7:24 PM CDT) Pathologist Sig Mobile Experience NA 131 (L) 135 - 145 [facility] mmol/L HOSPITAL LABORATORY K 4.4 3.5 - 5.0 [facility] mmol/L [facility] CL 89 (L) 98 - 108 mmol/L [facility] CO2 TOTAL 38 (H) 23 - 31 mmol/L [facility] AGAP 4 2 - 16 [facility] BUN 16 7 - 23 mg/dL [facility] GLUCOSE 103 70 - 110 mg/dL [facility] CREATININE 0.59 0.50 - 1.04 [facility] mg/dL [facility] CALCIUM 8.5 (L) 8.6 - 10.6 [facility] mg/dL [facility] eGFR Calculation 102.9 mL/min/1.73m2 [facility] ([facility] LABORATORY [place]) eGFR Calculation 124.8 mL/min/1.73m2 [facility] () [facility] Specimen Blood - VENOUS Narrative Performed At Association of Glomerular Filtration Rate (GFR) [facility] and Staging of Kidney Disease* [...] tests). Performing Organization Address City/State/Zipcode Phone Number [facility] CLIA: [id number], [address] [place] [address] 15 [facility] documented in this encounter Visit Diagnoses Diagnosis Dyspnea, unspecified type - Primary COPD exacerbation Obstructive chronic bronchitis with exac erbation documented in this encounter Administered Medications Medication Order MAR Action Action Date Dose Rate Site acetaminophen (TYLENOL) tablet 650 mg 650 mg, Oral, Q6HPRN, Starting Sat at 2340, Until Discontinued, Routine, Pain (scale 1-3) budesonide (PULMICORT RESPULE) nebulizer Given 02/13/2020 7:07 AM CDT 0.5 mg solution 0.5 mg 0.5 mg, Inhalation, BID, First dose on Sat02/10/20 at 0800, Until Discontinued, Routine, choir member approving Restricted medication: BARBARA BARLOW Given 02/12/2020 7:40 PM CDT 0.5 mg Given 02/12/2020 7:14 AM CDT 0.5 mg enoxaparin (LOVENOX) injection 40 mg Given 02/13/2020 8:48 AM CDT 40 mg Abdo men-SC 40 mg, Subcutaneous, DAILY, First dose on Sat02/10/20 at 0900, Until Discontinued, Routine Given 02/12/2020 8:13 AM CDT 40 mg Abdo men-SC Given 02/11/2020 8:56 AM CDT 40 mg Abdo men-SC hydrOXYzine (ATARAX) tablet 10 mg Given 02/13/2020 4:15 PM CDT 10 mg 10 mg, Oral, Q6HPRN, Starting Sat02/12/20 at 1506, Until Discontinued, Routine, Anxiety Given 02/12/2020 3:15 PM CDT 10 mg ipratropium-albuterol (DUONEB) 0.5 mg-3 mg(2.5 Given 0 02/12/2020 3:36 AM CDT 3 mL mg base)/3 mL nebulizer solution 3 mL 3 mL, Inhalation, QIDPRN, Starting Sat02/09/20 at 2341, Until Discontinued, Routine, Wheezing, Shortness of Breath, Bronchospasm, Chest tightness ipratropium-albuterol (DUONEB) 0.5 mg-3 mg(2.5 Given 0 02/13/2020 2:59 PM CDT 3 mL mg base)/3 mL nebulizer solution 3 mL 3 mL, Inhalation, QID, First dose on Sat02/10/20 at 0800, Until Discontinued, Routine Given 02/13/2020 7:07 AM CDT 3 mL Given 02/12/2020 7:29 PM CDT 3 mL nicotine (NICODERM) 21 mg/24 hr patch 1 Given 02/12/2020 11:48 P M CDT 1 Patch Patch 1 Patch, Topical, Administer over 24 Hours, Q24H, First dose on Sat02/09/20 at 2230, Until Discontinued, Routine Applied 02/11/2020 7:55 PM CDT 1 Patch Given 02/10/2020 11:25 PM CDT 1 Patch ondansetron (ZOFRAN (PF)) injection 4 mg 4 mg, Slow IV Push, Q6HPRN, Starting Sat02/09/20 at 23 40, Until Discontinued, Routine, Nausea and Vomiting (N/V) predniSONE (DELTASONE) tablet 50 mg Given 02/13/2020 8:49 AM CDT 50 mg 50 mg, Oral, DAILY, First dose on Sat02/10/20 at 1530, Until Discontinued, Routine Given 02/12/2020 8:13 AM CDT 50 mg Given 02/11/2020 8:57 AM CDT 50 mg sodium chloride (OCEAN MIST NASAL) 0.65 % Given 02/12/2020 1 1:48 PM CDT 1 [place] nasal spray 1 [place] 1 [place], Nasal, PRN, Starting Sat02/12/20 at 1725, Until Discontinued, Routine, Dry/stuffy nose Given 02/12/2020 6:54 PM CDT 1 [place] Given 02/12/2020 5:32 PM CDT 1 [place] Medication Order MAR Action Action Date Dose Rate Site albuterol (VENTOLIN) inhaler 2 Given 02/09/2020 7:27 PM CDT 2 P uffs Puff 2 Puff, Inhalation, ONCE, 1 dose, Sat02/09/20 at 2015, GRICEL, Is this order for a patient with suspected or confirmed COVID-19 infection? Yes doxycycline hyclate (Vibramycin) capsule 100 Given 5:00 AM CDT 100 mg mg 100 mg, Oral, Q12HA2, First dose on Sat02/10/20 at 1800, Until Discontinued, GRICEL, Reason for Anti-Infective: Documented Infection, Documented Infection Site: Respiratory, Duration of Therapy: 7 days Given 02/12/2020 5:35 PM CDT 100 mg Given 02/12/2020 5:15 AM CDT 100 mg iohexol (OMNIPAQUE 350 BULK-75 mL) injection Given 9:10 PM CDT 75 mL 75 mL 75 mL, Intravenous, ONCE, 1 dose, Sat02/09/20 at 2130, Routine LORazepam (ATIVAN) injection 0.5 mg Given 02/11/2020 9:03 AM CDT 0.5 mg 0.5 mg, Slow IV Push, PRN, 2 doses, Starting 02/10/20 at 0133, Until Monse 02/11/20 at 0903, Routine, Agitation Given 02/10/2020 1:36 AM CDT 0.5 mg LORazepam (ATIVAN) injection 0.5 mg Given 02/11/2020 7:56 PM CDT 0.5 mg 0.5 mg, Slow IV Push, ONCE, 1 dose, Monse 02/11/20 at 2100, Routine methylprednisolone sod succ (SOLU-MEDROL) Given 02/09/2020 7:40 PM CDT 125 mg injection 125 mg 125 mg, Slow IV Push, ONCE NOW, 1 dose, Sat02/09/20 at 2015, GRICEL documented in this encounter Insurance Payer Benefit Plan Subscriber ID Effective Phone Address Typ e / Group Dates [facility] [id number] 2019-Pres Medica [facility] HEALTH[facility] - MEDICARE ent HMO MANAGED COMPLETE MEDICARE [id number] MEDICAID OF xxxxxxxxx 2019-Pres [phone] [place] ent [id number] [place] [address] documented as of this encounter
--- OUTSIDE RECORDS SUMMARY | 2020-03-12 13:48 | XMS REPORT | Summary of Care ---
:1955 Author Organization [facility] - Health Address [address] [place] [address] Care Team Providers Name Role Phone MD Epifanio Unavailable Royal Pederson RNtime analysis clerk Gianni Valenzuela WHIPPED TOPPING FINISHER Benefits Specialist Recruiter Unavailable Cherise Dietrich MD Primary Care Provider Reason for Visit Reason Comments Disability Assistance/referral Encounter Details Date Type Department Care Team Description 02/18/2020 Patient Outreach [facility] Beau Valenzuela, [facility] [place]- WHIPPED TOPPING FINISHER Assistance/referral [address] [address] Allergies Active Allergy Reactions Severity Noted Date Comments Penicillins Rash 10/05/2016 documented as of this encounter (statuses as of 02/18/2020) Medications Medication Sig Dispensed Refills Start Date [...] as of this encounter (statuses as of 02/18/2020) Active Problems Problem Noted Date COPD with [...] as of this encounter (statuses as of 02/18/2020) Immunizations Name Administration Dates Next Due Influenza [...] encounter Progress Notes Beau Valenzuela MSW - 02/18/2020 5:30 PM CDTSocial Worker Note: COVID-19 Screen: ? Recent Travel to a high risk region: No ? Recent sick contacts before or during admission: No ? Fever, Cough, Myalgias/acute Respiratory symptoms: No This patient is considered low risk for COVID-19 infection. HEAD MACHINIST arrived at patient's [facility] and patient was waiting for the HEAD MACHINIST Patient was doing well but stated she needed assisted with rollator that was ordered from [facility]. HEAD MACHINIST contacted DME company [employer] out of [place] and spoke with Xiomy who stated that [facility] where the patient resides is not in their area. HEAD MACHINIST set up time to poultry picking machine tender the DME for the patient. 16:00 - HEAD MACHINIST picked up the DME for the patient and will deliver to patient the next business day. Beau Valenzuela LMSW [facility]. documented in this encounter Plan of Treatment Date Type Specialty Care Team Description 02/29/2020 Office Visit Family Medicine Bruno Cleaning MD [address] [address] [phone] 03/11/2020 Office Visit Cardiology Saray Almaguer MD [address] [place] [address] [place] [address] [phone] 05/06/2020 Office Visit Pulmonary Disease Bronwyn Don DO [address] [place] [phone] Health Maintenance Due Date Last Done [...] SERIES (2 10/10/201710/10 of 3 - PCV13) Depression Screening 10/14/2020 10/14/2019, 06/09/2019 INFLUENZA VACCINE Completed 10/07/2019, 10/10/2016 documented as of this encounter Results Not on filedocumented in this encounter Insurance Payer Benefit Plan Subscriber ID Effective Phone Address Typ e / Group Dates [employer]AARCharles [id number] 2019-Pres [facility] - MEDICARE ent Adv O MANAGED ADVANTAGE MEDICARE [facility] MEDICAID OF xxxxxxxxx 2019-Pres [phone] [place] ent [id number] [place] [address] documented as of this encounter
--- OUTSIDE RECORDS SUMMARY | 2020-03-12 13:48 | XMS REPORT | Summary of Care ---
:1955 Author Organization [facility] - [facility] Address [address] [place] [address] Care Team Providers Name Role Phone MD Epifanio Unavailable Royal Pederson RNengineering designer Gianni Valenzuela LEAD NURSE Court Transcriber Unavailable Cherise Dietrich MD Primary Care Provider Reason for Visit Reason Comments Orders Encounter Details Date Type Department Care Team Description 02/19/2020 Telephone [facility] Pediatric[facility] & Shanae Dietrich, Orders Adult Primary Care- [place] VASQUEZ [address] [place] [phone] [place] [address] [place] [phone] [place] [address] Allergies Active Allergy Reactions Severity Noted Date Comments Penicillins Rash 10/05/2016 documented as of this encounter (statuses as of 02/19/2020) Medications Medication Sig Dispensed Refills Start Date [...] as of this encounter (statuses as of 02/19/2020) Active Problems Problem Noted Date COPD with [...] as of this encounter (statuses as of 02/19/2020) Immunizations Name Administration Dates Next Due Influenza [...] Visit Family Medicine Bruno Cleaning MD [address] [phone] 03/11/2020 Office Visit Cardiology Saray Almaguer MD [address] [place] [phone] 05/06/2020 Office Visit Pulmonary Disease Bronwyn Don DO [address] [place] [phone] Health Maintenance Due Date Last Done Comments [...] Address Typ e / Group Dates [employer]/ALEXANDRA [id number] 2019-Pres Med [facility] - MEDICARE ent Adv HMO MANAGED ADVANTAGE MEDICARE [facility] MEDICAID OF xxxxxxxxx 2019-Pres [phone] [facility] ent [id number] [place] [address] documented as of this encounter
--- OUTSIDE RECORDS SUMMARY | 2020-03-12 13:48 | XMS REPORT | Summary of Care ---
:1955 Author Organization [address] [address] Care Team Providers Name Role Phone MD Epifanio Unavailable Royal Pederson RNbasketball referee Gianni Valenzuela YOUTH ADVOCATE Tractor Engine Mechanic Unavailable Cherise Dietrich MD Primary Care Provider Reason for Visit Reason Comments DME Encounter Details Date Type Department Care Team Description 02/19/2020 Patient Outreach [facility] Ned Valenzuela, YOUTH ADVOCATE DME [address] [address] Allergies Active Allergy Reactions Severity Noted Date [...] encounter Progress Notes Beau Valenzuela MSW - 02/19/2020 1:43 PM CDTSocial Worker Note: JOSE took the rollater to the patient in the morning and showed her how to work the DME. Patient was pleased with the equipment and the paperwork from [employer]. Beau Valenzuela LMSW [facility] Ph. documented in this encounter Plan of Treatment Date Type Specialty Care Team Description 02/29/2020 Office Visit Family Medicine Bruno Cleaning MD [address] [address] 03/11/2020 Office Visit Cardiology Saray Almaguer MD [address] [place], [place] [phone] 05/06/2020 Office Visit Pulmonary Disease Bronwyn Don DO [address] [place] [address] Health Maintenance Due Date Last [...] Phone Address Typ e / Group Dates [facility] [id number] 2019-Pres [facility] - MEDICARE ent Adv [facility] MANAGED ADVANTAGE MEDICARE [facility] MEDICAID OF xxxxxxxxx 2019-Pres [phone] [address] Medi caid [place] ent [phone] [place] [address] documented as of this encounter
--- OUTSIDE RECORDS SUMMARY | 2020-03-12 13:48 | XMS REPORT | Summary of Care ---
:1955 Author Organization [facility] - [facility] Address [address] [place] [address] Care Team Providers Name Role Phone MD Epifanio Unavailable Royal Pederson RNstreet inspector Gianni Valenzuela HOTEL OR MOTEL MANAGER Fighting Vehicle Systems Maintainer Unavailable Cherise Dietrich MD Primary Care Provider Reason for Visit Reason Comments Forms Encounter Details Date Type Department Care Team Description 02/12/2020 Telephone [facility] & Shanae Dietrich, Forms Adult Primary Care- [place] VASQUE[address] [address] [address] [address] [place] [phone] [place] [phone] Allergies Active Allergy Reactions Severity Noted [...] Visit Family Medicine Bruno Cleaning MD [address] [phone] 03/11/2020 Office Visit Cardiology Saray Almaguer MD [address] [place] [phone] 05/06/2020 Office Visit Pulmonary Disease Bronwyn Don DO [address] [place] [phone] Health Maintenance Due Date Last Done Comments [...] Typ e / Group Dates [employer] [place]/ALEXANDRA [id number] 2019-Pres Med [facility] - MEDICARE ent Adv HMO MANAGED ADVANTAGE MEDICARE [facility] MEDICAID OF xxxxxxxxx 2019-Pres [phone] [address] Medi [facility] ent [id number] [place] [address] documented as of this encounter
--- OUTSIDE RECORDS SUMMARY | 2020-03-12 13:49 | XMS REPORT | Summary of Care ---
:1955 Author Organization [address] [address] Care Team Providers Name Role Phone MD Epifanio Unavailable Royal Pederson studio producer Gianni Valenzuela MSW Property Assessment Monitor Unavailable Cherise Dietrich MD Primary Care Provider Reason for Visit Reason Comments Follow-up DME Medication Assistance PATIENT EDUCATION Encounter Details Date Type Department Care Team Description 02/24/[address] [facility] Manda Pederson RN Follow-up; DME; [address] Medication [place] [facility] Assistance; PATIENT [place], [place] [address] EDUCATION [phone] Allergies Active Allergy Reactions Severity Noted Date Comments Penicillins Rash 10/05/2016 documented as of this encounter (statuses as of 02/24/2020) Medications Medication Sig Dispensed Refills Start Date [...] as of this encounter (statuses as of 02/24/2020) Active Problems Problem Noted Date COPD with [...] as of this encounter (statuses as of 02/24/2020) Immunizations Name Administration Dates Next Due Influenza [...] encounter Progress Notes Manda Pederson RN - 02/24/2020 1:14 PM CDTCHP f/u: 89% readmit risk Pt is doing much better re: her mold situation. She has a different trailer, w/o mold. She uses her oxygen and nebulizer and is only using inhaler prn. She continues to smoke, "I've cut back significantly," says the patient. ESTEVAN listened as the patient c/o her experience at [facility] rehab. She was very glad to be home. She reports having a lot of swelling in her b/l LE. She reported she was taking a lot of steroids in therehab. She is not taking any diuretics at this time. She also reports she is having a lot of anxiety and called EMS to her residence on 02/23/20. She stat CM will visit the patient on 02/25/20 and take her a BP machine. The patient will be seeing her PCP, Dr. Dietrich on 02/29/20. CM will forward this to Dr. Dietrich to notify of patient's status. Pt agreed with plan. MAE Kendall, RN, [facility] Outpatient Portfolio ConsultantDisease Management NurseAdventhealth Hendersonville O: [phone] M: [phone] documented in this encounter Plan of Treatment Date Type Specialty Care Team Description 02/29/2020 Office Visit Family Medicine Bruno Cleaning MD [address] [place] [address] 03/11/2020 Office Visit Cardiology Saray Almaguer MD [address] [place] [phone] 05/06/2020 Office Visit Pulmonary Disease Bronwyn Don DO [address] [place] [address] Health Maintenance Due Date Last Done [...] Address Typ e / Group Dates [employer] [id number] 2019-[facility] - MEDICARE ent Adv HMO MANAGED ADVANTAGE MEDICARE [facility] MEDICAID OF xxxxxxxxx 2019-Pres [phone] Geoff mendoza [facility] [phone] [place] [address] documented as of this encounter
--- OUTSIDE RECORDS SUMMARY | 2020-03-12 13:49 | XMS REPORT | Summary of Care ---
:1955 Author Organization [facility] Address [address] [place] [address] Care Team Providers Name Role Phone MD Epifanio Unavailable Royal Pederson trimming inspector Gianni Valenzuela MSW Torts Law Professor Unavailable Cherise Dietrich MD Primary Care Provider Reason for Visit Reason Comments DME Drop off bp machine Assessment intial Encounter Details Date Type Department Care Team Description 02/25/2020 Patient Outreach [facility] Manda Pederson RN DME (Drop off [facility] [address] machine); [facility] Assessment (intial) [place], [place] [address] Allergies Active Allergy Reactions Severity Noted Date Comments Penicillins Rash 10/05/2016 documented as of this encounter (statuses as of 02/26/2020) Medications Medication Sig Dispensed Refills Start Date End Date Status calcium-vitamin D 500 Take 1 tablet by 30 tablet 2 04/11/2017 Suspended mg(1,250mg) -200 unit mouth daily. per tablet Additional information fluticasone furoate-vilanterol Inhale 200 mcg 30 Each 3 05/24 Suspended (BREO ELLIPTA) 200-25 mcg/dose daily. DsDvIndications: Pulmonary emphysema, unspecified emphysema type, Chronic obstructive pulmonary disease, unspecified COPD type Additional information levalbuterol 0.63 mg/3 mL Inhale [...] as of this encounter (statuses as of 02/26/2020) Active Problems Problem Noted Date COPD with [...] Overview: poison mandy Breast cancer, right breast Chronic respiratory failure with hypoxia, on home O2 t herapy documented as of this encounter (statuses as of 02/26/2020) Immunizations Name Administration Dates Next Due Influenza Virus Vaccine Quad .5 mL IM 6+ MO 10/07/2019 Influenza Virus Vaccine Quad IM 3+ YRS 10/10/2016 Pneumococcal Polysaccharide, PPSV23 (PNEUMOVAX) 10/10/2016 documented as of this encounter Social History Tobacco Use Types Packs/Day Years Used Date Current Every Day Smoker Cigarettes 1 40 Smokeless Tobacco: Current User Comments: 1/2 pack of cigarettes daily Alcohol [...] been in contact with No / Unsure 02/24/2020 6:44 PM CDT someone who was confirmed or suspected to have Coronavirus / COVID-19? documented as of this encounter Last Filed Vital Signs Not on filedocumented in this encounter Progress Notes Manda Pederson RN - 02/25/2020 11:59 PM CDTCHP: 90% readmit risk/[facility] managed care/PCP: Marci Dietrich CM drove to patient's residence to take DME. There was no answer at door, dogs were inside trailer/ac was off, bag with DME left at the door. CM viewed Epic and saw that patient returned to ER for COPDexacerbation. MAE Kendall, RN, [facility] Outpatient Thread SingerSenior SvpColumbus Regional Healthcare System O: [phone] M: [phone] documented in this encounter Plan of Treatment Date Type Specialty Care Team Description 02/29/2020 Office Visit Family Medicine Cleaning, Bruno Y, MD [address] [address] [phone] 03/11/2020 Office Visit Cardiology Saray Almaguer MD [address] [place] [phone] 05/06/2020 Office Visit Pulmonary Disease Bronwyn Don DO [address] [place] [address] Health Maintenance Due Date Last [...] Results Not on filedocumented in this encounter Additional Health Concerns Infection Onset Date Last Indicated Resolved Time COVID-19 Rule Out 02/25/2020 02/25/2020 documented as of this encounter Insurance Payer Benefit Plan Subscriber ID Effective Phone Address Typ e / Group Dates [facility] [id number] 2020-Prese [facility]/AA nt [facility] MEDICAID OF xxxxxxxxx 2019-Prese [phone] Med icaid [place] nt [phone] [id number] [place] [address] documented as of this encounter
--- OUTSIDE RECORDS SUMMARY | 2020-03-12 13:51 | XMS REPORT | Summary of Care ---
:1955 Author Organization [address] [address] Care Team Providers Name Role Phone MD Epifanio Unavailable Royal Pederson RNservice team leader Gianni Valenzuela MSW Elevating Grader Operator Unavailable Cherise Dietrich MD Primary Care Provider Reason for Visit Reason Comments Hospital F/U Pt discharged on 02/29/20 Assessment Encounter Details Date Type Department Care Team Description 03/01/2020 Patient Outreach [facility] Manda Pederson RN Hospital F/U ( Health [address] discharged on [facility] 02/29/20); Assessment [place], [place] [address] Allergies Active Allergy Reactions Severity Noted Date Comments Penicillins Rash 10/05/2016 documented as of this encounter (statuses as of 03/01/2020) Medications Medication Sig Dispensed Refills Start Date [...] (twenty-four) breath), Tobacco use hours. disorder, continuous predniSONE 10 mg Take 40 mg po qd 32 tablet 0 02/29/2020 Active tabletIndications: x 3d, then 30 mg SOB (shortness of qd x 3d, 20 mg qd breath), Tobacco use x 3d, 10 mg qd x disorder, continuous 3d, 5 mg qd x 3d furosemide 20 mg Take 1 tablet by 30 tablet 2 03/01/202003/31 Active tabletIndications: mouth daily for Acute on chronic 30 days. diastolic congestive heart failure ALPRAZolam 0.5 mg Take 1 tablet by 20 tablet 0 02/29/2020 Active tabletIndications: mouth 2 (two) Anxiety about health times daily as needed (anxiety). documented as of this encounter (statuses as of 03/01/2020) Active Problems Problem Noted Date Acute on chronic diastolic congestive heart failure COPD with acute exacerbation 01/29/2020 Elevated troponin [...] as of this encounter (statuses as of 03/01/2020) Immunizations Name Administration Dates Next Due Influenza [...] encounter Progress Notes Manda Pederson RN - 03/01/2020 11:55 AM CDTCHP f/u: patient discharged on 02/29/20 CM attempted to contact the patient, no answer, no vm setup. CM will reattempt at a later time. MAE Kendall, RN, [facility] Outpatient Senior Policy AdvisorHand KnitterHugh Chatham Memorial Hospital O: [phone] M: [phone] documented in this encounter Plan of Treatment Date Type Specialty Care Team Description 03/11/2020 Office Visit Cardiology Saray Almaguer MD [address] [place] [address] [phone] 05/06/2020 Office Visit Pulmonary Disease Bronwyn Don DO [address] [place] [address] Health Maintenance Due Date Last [...] Phone Address Typ e / Group Dates [facility] [id number] 2020-Prese [facility]/AA nt [facility] MEDICAID OF xxxxxxxxx 2019-Prese [phone] [address] Med icaFair[facility] nt [id number] [place] [address] documented as of this encounter
--- OUTSIDE RECORDS SUMMARY | 2020-03-12 13:51 | XMS REPORT | Summary of Care ---
:1955 Author Organization [facility] - [facility] Address [address] [place] [address] Care Team Providers Name Role Phone MD Epifanio Unavailable Royal Pederson RNtoll line inspector Gianni Valenzuela FOOD SAFETY TECHNICIAN Trash Truck Driver Unavailable Cherise Dietrich MD Primary Care Provider Reason for Visit Reason Comments Transition Of Care Encounter Details Date Type Department Care Team Description 03/02/2020 Transition of Care [facility] Ernestina Rutherford [facility] [address] [address] Allergies Active Allergy Reactions Severity Noted Date Comments Penicillins Rash 10/05/2016 documented as of this encounter (statuses as of 03/02/2020) Medications Medication Sig Dispensed Refills Start Date End Date Status calcium-vitamin D 500 Take 1 tablet by 30 tablet 2 04/11/2017 Active mg(1,250mg) -200 unit mouth daily. per tablet predniSONE 10 mg Take 40 mg po [...] chronic 30 days. diastolic congestive heart failure buPROPion XL Take 1 tablet by 60 tablet 1 03/01/2020 Active (WELLBUTRIN XL) 150 mouth daily. mg 24 hr tabletIndications: Tobacco abuse, Depression, unspecified depression type sodium chloride 0.9 % Use 3 mL as 100 Vial 10 03/01/2020 Active nebulizer directed every 6 solutionIndications: (six) hours as Chronic obstructive needed for pulmonary disease, Wheezing unspecified COPD type (cough/congestion ). ALPRAZolam 0.5 mg Take 1 tablet by 40 tablet 0 03/01/2020 Active tabletIndications: mouth 2 (two) Anxiety about health times daily as needed (anxiety). fluticasone Inhale 200 mcg 30 Each 3 03/01/2020 Ac tive furoate-vilanterol daily. (BREO ELLIPTA) 200-25 mcg/dose DsDvIndications: Pulmonary emphysema, unspecified emphysema type, Chronic obstructive pulmonary disease, unspecified COPD type ipratropium 0.02 % Inhale 2.5 mL 30 Vial 2 03/01/2020 Active nebulizer every 6 (six) solutionIndications: hours as needed COPD exacerbation for Wheezing or Shortness of Breath. levalbuterol 0.63 Inhale 0.63 mg 30 Vial 2 03/01/2020 Active mg/3 mL nebulizer every 6 (six) solutionIndications: hours as needed COPD exacerbation for Wheezing or Shortness of Breath. documented as of this encounter (statuses as of 03/02/2020) Active Problems Problem Noted Date Acute on [...] as of this encounter (statuses as of 03/02/2020) Immunizations Name Administration Dates Next Due Influenza [...] been in contact with No / Unsure 03/01/2020 11:58 AM CDT someone who was confirmed or suspected to have Coronavirus / COVID-19? documented as of this encounter Last Filed Vital Signs Not on filedocumented in this encounter Plan of Treatment Date Type Specialty Care Team Description 03/11/2020 Office Visit Cardiology Saray Almaguer MD [address] [place], [place] [phone] 03/25/2020 Office Visit Pulmonary Disease Bronwyn Don DO [address] [place] [phone] 03/29/2020 Office Visit Family Medicine Shanae Dietrich MD [address] [place] [phone] 05/06/2020 Office Visit Pulmonary Disease Bronwyn Don DO [address] [place] [address] Health Maintenance Due Date Last [...] Address Typ e / Group Dates [place] [id number] 2020-Prese [facility]/AA tae [facility] MEDICAID OF xxxxxxxxx 2019-Prese [phone] [address] Med [facility]Che[facility] nt [phone] [place] [address] documented as of this encounter
--- OUTSIDE RECORDS SUMMARY | 2020-03-12 13:51 | XMS REPORT | Summary of Care ---
:1955 Author Organization [facility] - [facility] Address [address] [place] [address] Care Team Providers Name Role Phone MD Epifanio Unavailable Royal Pederson RNoffline cutter Gianni Valenzuela INTERNATIONAL AFFAIRS VICE PRESIDENT Fast Food Server Unavailable Cherise Dietrich MD Primary Care Provider Reason for Visit Reason Comments Forms Encounter Details Date Type Department Care Team Description 03/02/2020 Telephone [facility] Pediatrics & Shanae Dietrich, Forms Adult Primary Care- Jean VASQUEZ [address] [address] [address] [address] [place] [phone] [place] [phone] Allergies Active Allergy Reactions Severity Noted Date Comments Penicillins Rash 10/05/2016 documented as of this encounter (statuses as of 03/04/2020) Medications Medication Sig Dispensed Refills Start Date [...] as of this encounter (statuses as of 03/04/2020) Active Problems Problem Noted Date Acute on [...] as of this encounter (statuses as of 03/04/2020) Immunizations Name Administration Dates Next Due Influenza [...] Almaguer MD [address] [place] [phone] 03/25/2020 Office Visit [place] [address] [place] [phone] 03/29/2020 Office Visit Family Medicine Shanae Dietrich MD [address] [phone] 05/06/2020 Office Visit Pulmonary Disease Bronwyn Don [address] [place] [phone] Health Maintenance Due Date Last Done Comments [...] / Group Dates [facility] [id number] 2020-Amy [facility]/AA nt [facility] MEDICAID OF xxxxxxxxx 2019-Amy [phone] [address] [facility] nt [phone] [place] [address] documented as of this encounter
--- OUTSIDE RECORDS SUMMARY | 2020-03-12 13:51 | XMS REPORT | Summary of Care ---
:1955 Author Organization [facility] Address [address] [place] [address] Care Team Providers Name Role Phone MD Epifanio Unavailable Royal Pederson RNdiesel plant operator Gianni Valenzuela RAILROAD ENGINEER Continuity Tester Unavailable Cherise Dietrich MD Primary Care Provider Reason for Referral Other (Routine) Status Reason Specialty Diagnoses / Referred By Referred To Procedures Contact Contact New Request Diagnoses Acute on chronic diastolic congestive heart failure Rafiq Tucker MD Cai, Qiangjun, MD Procedures Discharge Follow-up: Specialty Provider VICTOR HUGO BAILON; 2 Weeks [address] [address] [place] [address] Phone: [place] [phone] Phone: Fax: Other (Routine) Status Reason Specialty Diagnoses / Procedures Referred By Ned sarabia To Contact Contact New Request Diagnoses COPD with acute exacerbation Rafiq Tucker MD Shah, Shiwan, Procedures Discharge Follow-up: Specialty Provider BIMAL KLEIN; 2 Weeks 301 [facility] [address] [facility] [address] [place], [place] Phone: [phone] Phone: Fax: (Routine) Status Reason Specialty Diagnoses / Referred By Referred To Procedures Contact Contact New Request Diagnoses COPD with acute exacerbation Rafiq Tucker MD [place], Procedures Discharge Follow-up: PCP YASEMIN DIETRICH; [address] [place] [address] Yasemin Luong MD [place] [address] [place], [place] Phone: [phone] Phone: Fax: Radiology Services (STAT) Status Reason Specialty Diagnoses / Referred By Referred To Procedures Contact Contact New Request Diagnostic Diagnoses Dyspnea, unspecified type Harrison Hernandez, Radiology Procedures XR CHEST 1 VW COVID Chest [address] [place] [address] [address] [place] [address] Reason for Visit Reason Comments Shortness of Breath Auth/Cert Status Reason Specialty Diagnoses / Referred By Referred To Procedures Contact Contact Emergency Medicine [facility] Em ergency Dept [address] [place] [address] Fax: Encounter Details Date Type Department Care Team Description 02/24/2020 - Hospital ADC Intensive Care Jonny Hernandez MD [address] [place] [address] [address] [place], [place] [id number] COPD with acute 02/29/2020 Encounter Unit Kai Jim MD [address] [place] [address] [id number] [place], [place] [id number] exacerbation 132 [facility] [place] MD [address] [place] [address]. [address] [place], [place] [address] [place], [place] [id number] Allergies Active Allergy Reactions Severity Noted Date Comments Penicillins Rash 10/05/2016 documented as of this encounter (statuses as of 02/29/2020) Medications Medication Sig Dispensed Refills Start Date End Date Status calcium-vitamin D Take 1 tablet 30 tablet 2 04/11/2017 Active 500 mg(1,250mg) by mouth -200 unit per daily. tablet fluticasone Inhale 200 mcg 30 Each 3 06/09/2019 Ac tive furoate-vilanterol daily. (BREO ELLIPTA) 200-25 mcg/dose DsDvIndications: Pulmonary emphysema, unspecified emphysema type, Chronic obstructive pulmonary disease, unspecified COPD type levalbuterol 0.63 Inhale 0.63 mg 30 Vial 2 10/07/2019 Active mg/3 mL nebulizer every 6 (six) solutionIndication hours as s: COPD needed for exacerbation Wheezing or Shortness of Breath. ipratropium 0.02 % Inhale 2.5 mL 30 Vial 2 10/07/2019 Active nebulizer every 6 (six) solutionIndication hours as s: COPD needed for exacerbation Wheezing or Shortness of Breath. nicotine 14 mg/24 Apply 1 Patch 30 Patch 2 2020 Active hr to area(s) patchIndications: every 24 SOB (shortness of (twenty-four) breath), Tobacco hours. use disorder, continuous predniSONE 10 mg Take 40 mg po 32 tablet 0 02/29/2020 Active tabletIndications: qd x 3d, then SOB (shortness of 30 mg qd x 3d, breath), Tobacco 20 mg qd x 3d, use disorder, 10 mg qd x 3d, continuous 5 mg qd x 3d furosemide 20 mg Take 1 tablet 30 tablet 2 03/01/2020 03/31/20 2 Active tabletIndications: by mouth daily 0 Acute on chronic for 30 days. diastolic congestive heart failure ALPRAZolam 0.5 mg Take 1 tablet 20 tablet 0 02/29/2020 Active tabletIndications: by mouth 2 Anxiety about (two) times health daily as needed (anxiety). lactobacillus Take 1 tablet 60 tablet 0 02/02/2020 D iscontinued acidophilus 25 by mouth 2 0 million cell -100 (two) times mg daily. captabIndications: SOB (shortness of breath), Tobacco use disorder, continuous hydrOXYzine 25 mg Take 1 tablet 20 tablet 0 02/02/2020 02 Discontinued tabletIndications: by mouth every 0 SOB (shortness of 6 (six) hours breath), Tobacco as needed for use disorder, Anxiety. continuous predniSONE 10 mg Take 40 mg po 32 tablet 0 02/02/2020 02/29/20 2 Discontinued tabletIndications: qd x 3d, then 0 (Reorder) SOB (shortness of 30 mg qd x 3d, breath), Tobacco 20 mg qd x 3d, use disorder, 10 mg qd x 3d, continuous 5 mg qd x 3d documented as of this encounter (statuses as of 02/29/2020) Active Problems Problem Noted Date Acute on [...] as of this encounter (statuses as of 02/29/2020) Immunizations Name Administration Dates Next Due Influenza Virus Vaccine Quad .5 mL IM 6+ MO 10/07/2019 Influenza Virus Vaccine Quad IM 3+ YRS 10/10/2016 Pneumococcal Polysaccharide, PPSV23 (PNEUMOVAX) 10/10/2016 documented as of this encounter Social History Tobacco Use Types Packs/Day Years Used Date Current Every Day Smoker Cigarettes 1 40 Smokeless Tobacco: Current User Tobacco Cessation: Ready to Quit: Yes; C ounseling Given: Yes Comments: 1/2 pack of cigarettes daily Alcohol [...] Sign Reading Time Taken Comments Blood Pressure 123/93 02/29/2020 12:35 PM CDT Pulse 107 02/29/2020 12:35 PM CDT Temperature 36.9 C (98.5 F) 02/29/2020 12:35 PM CDT Respiratory Rate 18 02/29/2020 1:42 PM CDT Oxygen Saturation 94% 02/29/2020 1:42 PM CDT Inhaled Oxygen Concentration - - Weight 55.5 kg (122 lb 4.8 oz) 02/29/2020 8:25 AM CDT Height 157.5 cm (5' 2") 02/24/2020 9:05 PM CDT Body Mass Index 22.37 02/24/2020 9:05 PM CDT documented in this encounter Discharge Instructions AttachmentsThe following attachments cannot be sent through Care Everywhere. Pulmonary Edema (Ecuadorean)Prednisone tablets (Ecuadorean)COPD Flare (Ecuadorean) documented in this encounter Progress Notes Juanpablo Hoff RN - 02/29/2020 2:27 PM CDT Care Management Discharge Disposition Note (DCDN) 5-2-1 Interventions: Home visit/home health referral 5-2-1 Providers: Cut Tobacco Bulker/Continuity Tester 5-2-1 Patient Capacity Improvements: Discharge Plan for ongoing care and services: Home Health (HH) Is this a new referral: Yes Patient Choice completed for referred services: Yes DME location: Other DME location: Durable Medical Equipment: Home Health location: [address] () [phone] (F) [phone] Discharge location(s): Home Health location: [address] () [phone] (F) [phone] Patient choice completed for referred services: Yes Discussed with patient/patients family involved in decision making: Yes Patient or family caregiver understands, and agrees with discharge plan. Community resources/referrals made or provided to patient: No Resources/Referrals: Transportation: Private Vehicle Mental Status: Alert & Oriented to Person,Place & Time Living Arrangement: Home Other living arrangement: Address of living arrangement: [address] [place] [address] [address] [place] Funding Resources: Medicare Replacement Nursing informed of discharge plan: Yes Name of RN informed: Nanda Expected discharge date: 02/29/2020 Time: Afternoon [30] Additional Information: CM/SW Name & Contact number: Juanpablo Hoff RN Ph. .jessi The following information has been provided to the facility noted above: reason for the patient discharge or transfer; patients physical and psychosocial status; summary of care, treatment, servicesprovided to patient; and the patient progress toward goals. Juanpablo Barber RN - 02/29/2020 1:55 PM [facility] orders faxed over to [facility]. Juanpablo Hoff RN, BSN [facility] ADC Cut Tobacco Bulker [phone] F [phone] Pebbles Araya RT - 02/29/2020 11:40 AM CDTPulmonary Rehab Note, Phase I: Identified myself (Respiratory Therapist) with patient identifying herself; explained that I wanted to reiterate what I had talked about before when she was here re: [facility] outpatient [place] program. Patient reported that her [facility] therapy, she felt, was not good reporting noone cameto check on her for ~36 hours. She did lots of physical exercises but no specific respiratory exercises targeting her breathing problem. Reiterated I would also exercise her on various pieces of equipment but would offer breathing techniques, along with handouts, for her breathing problem. Informed patient she would need a more recent PFT (last one 2016) which could be done in [place] before starting [place]. Patient verbalized she might have transportation problems, but encouraged patient to have the PFT (scheduling 2-3 weeks out) which would give her time to organize her transportation. Will contact Dr. Jackson, [place] Physical Ther, to order outpatient PFT. Patient's phone rang, therapist excused herself; total time discussing [place] Prog arm - 20 minutes. Pebbles Crenshaw, RRT afiq Tucker MD - 02/28/2020 3:[address] [facility] Medicine Progress Note Name: Mariana Turner : 1955 Admit Date: 02/24/2020 PCP on file: Yasemin Dietrich ASSESSMENT: Mariana Turner is a 65 year old female with PLAN: # Acute on chronic hypoxic and hypercapneic respiratory failure # Acute COPD exacerbation # acute respiratory acidosis # Acute diastolic CHF # Hx of stage 4 severe COPD - Requiring bipap initially - continue steroid, empiric abx day 5, and bronchodilators - appreciate pulmonology 's input. D/c'd pulmicort - Bipap prn - change lasix to po - Pulmonology and Cardiology consulted # Active smoker Counseled on smoking cessation Nicotine patch # Anxiety Xanax prn # Hyponatremia, mild, resolved Dispo: Home tomorrow VTE Prophylaxis: enoxaparin Code Status: [facility] [place] ELECTRIC DISTRIBUTION ENGINEER was verified during stay Electronically signed by: Rafiq Tucker MD SUBJECTIVE/ 24-HOUR HOSPITAL EVENTS: 02/24: off BiPAP now. Emery better. 02/25: Needs BiPAP at night. Emery better. 02/26: no acute event. 02/27: feels weak. SOB improved. OBJECTIVE: Vital signs range: Temp: [36.1 C (97 F)-37.2 C (98.9 F)] 36.7 C (98.1 F) Pulse: [69-105] 105 Resp: [15-20] 16 BP: (104-135)/(71-93) 104/93 Most recent vital signs: BP (!) 104/93 | Pulse 105 | Temp 36.7 C (98.1 F) (Oral) | Resp 16 | Ht 1.575 m (5' 2") | Wt53 kg (116 lb 13.5 oz) | SpO2 91% | BMI 21.37 kg/m I/O: I/O last 3 completed shifts: In: 1200 [Oral:900; I.V.:300] Out: 3300 [Urine:3300] PHYSICAL EXAM: General: alert and oriented x [...] Recent Results (from the past 24 hour(s)) BASIC METABOLIC PANEL (NA, K, CL, CO2, GLUCOSE, BUN, CREATININE, CA) Collection Time: 02/28/20 5:52 AM Result Value Ref Range NA 135 135 - 145 mmol/L K 3.4 (L) 3.5 - 5.0 mmol/L CL 92 (L) 98 - 108 mmol/L CO2 TOTAL 43 (H) 23 - 31 mmol/L AGAP <1 (L) 2 - 16 BUN 32 (H) 7 - 23 mg/dL GLUCOSE 86 70 - 110 mg/dL CREATININE 0.63 0.50 - 1.04 mg/dL CALCIUM 9.4 8.6 - 10.6 mg/dL eGFR Calculation (Non-) 95.4 mL/min/1.73m2 eGFR Calculation () 115.7 mL/min/1.73m2 MAGNESIUM Collection Time: 02/28/20 5:52 AM Result Value Ref Range MAGNESIUM 1.8 1.7 - 2.4 mg/dL CBC WITH DIFFERENTIAL Collection Time: 02/28/20 5:52 AM Result Value Ref Range WBC 11.20 (H) 4.30 - 11.10 10*3/L RBC 4.13 3.93 - 5.25 10*6/L HGB 13.1 11.6 - 15.0 g/dL HCT 40.0 35.7 - 45.2 % MCV 96.9 (H) 80.6 - 95.5 fL MCH 31.7 25.9 - 32.8 pg MCHC 32.8 31.6 - 35.1 g/dL RDW-SD 49.1 39.0 - 49.9 fL RDW-CV 13.9 12.0 - 15.5 % PLT 278 166 - 358 10*3/L MPV 9.0 (L) 9.5 - 12.9 fL NRBC/100 WBC 0.0 0.0 - 10.0 /100 WBCs NRBC x10^3 <0.01 10*3/L GRAN MAT (NEUT) % 70.8 % IMM GRAN % 0.60 % LYMPH % 19.4 % MONO % 8.7 % EOS % 0.4 % BASO % 0.1 % GRAN MAT x10^3(ANC) 7.94 (H) 1.88 - 7.09 10*3/uL IMM GRAN x10^3 0.07 (H) 0.00 - 0.06 10*3/uL LYMPH x10^3 2.17 1.32 - 3.29 10*3/uL MONO x10^3 0.97 (H) 0.33 - 0.92 10*3/uL EOS x10^3 0.04 0.03 - 0.39 10*3/uL BASO x10^3 <0.03 0.01 - 0.07 10*3/uL IMAGING: I reviewed all the relevant patient's new radiology test results Hospital Encounter on 02/24/20 XR CHEST 1 VW COVID Narrative XR CHEST 1 VW COVID Comparison: 02/09/2020 History: dyspnea Findings: The lungs exhibit chronic emphysematous changes with prominent left apical lucency and flattening of the diaphragm. No pleural effusion, focal consolidation, or pneumothorax is identified. The cardiomediastinal silhouette is normal in size. Surgical judith project over the mediastinum and right axillary soft tissues. Postsurgical changes of right mastectomy. No acute osseous abnormality is present. Impression No acute cardiopulmonary abnormality. Chronic emphysematous changes. Disclaimer: Generally, the findings on chest imaging in COVID-19 are not specific, and overlap with other infections, including influenza, H1N1, SARS and MERS. According to the Centers for Disease Control (CDC) and recent statement of the [place] [employer], viral testing remains the only specific method of diagnosis. Confirmation with the viral test is required, even if radiologic findings are suggestive of COVID-[address] Preliminary Report Dictated by Resident: Mike Bermeo MD., have reviewed this study and agree with the above report. MEDICATIONS: I reviewed the current inpatient medications ordered Current Facility-Administered Medications Medication Dose Route Frequency Last Rate Last Dose [START ON 02/29/2020] furosemide (LASIX) tablet 20 mg 20 mg Oral DAILY KCL (KLOR-CON M20) tablet 40 mEq 40 mEq Oral ONCE ALPRAZolam (XANAX) tablet 0.5 mg 0.5 mg Oral TIDPRN 0.5 mg at 02/28/20 0829 doxycycline (VIBRAMYCIN) 100 mg in NaCl 0.9% (NS) 100 mL MINI-BAG 100 mg IV Piggyback Q12H ABX 100 mg at 02/28/20 1406 ipratropium (ATROVENT) 0.02 % nebulizer solution 0.5 mg 0.5 mg Inhalation Q6H 0.5 mg at 02/28/20 1340 levalbuterol (XOPENEX) nebulizer solution 1.25 mg 1.25 mg Inhalation Q6H 1.25 mg at 02/28/20 1340 predniSONE (DELTASONE) tablet 40 mg 40 mg Oral DAILY 40 mg at 02/28/20 0822 docusate (COLACE) capsule 100 mg 100 mg Oral BID 100 mg at 02/28/20 0822 enoxaparin (LOVENOX) injection 40 mg 40 mg Subcutaneous DAILY 40 mg at 02/28/20 0822 nicotine (NICODERM) 14 mg/24 hr patch 1 Patch 1 Patch Topical Q24H 1 Patch at 02/28/20 0024 ondansetron (ZOFRAN (PF)) injection 4 mg 4 mg Slow IV Push Q6HPRN ai, MD Victor Hugo - 02/28/2020 10:12 AM CDT [facility] Cardiology progress note Date of Service: 02/28/2020 Mariana Turner is a 65 years old female hospitalized for COPD Exacerbation. No new cardiac complaints noted. PHYSICAL EXAM Vitals: 02/28/20 0400 02/28/20 0728 02/28/20 0743 02/28/20 0800 BP: 135/74 (!) 116/92 Pulse: 69 95 Resp: 16 16 Temp: 36.4 C (97.5 F) 37.2 C (98.9 F) TempSrc: Temporal Artery Oral SpO2: 100% 100% 97% 91% Weight: Height: Date 02/28/20 0700 - 02/29/20 0659 Shift 3909-0311 7346-6750 7033-8798 24 Hour Total INTAKE Oral 250 250 Shift Total 250 250 OUTPUT Shift Total Weight (kg) 53.5 53.5 53.5 53.5 General: no apparent distress HEENT: normocephalic atraumatic [...] Value 01/12/2013 6.3 WBC (10*3/L) Date Value 02/28/2020 11.20 (H) NA Date Value 02/28/2020 135 mmol/L 01/12/2013 139 MMOL/L No results found for: PT PLT x10^3 (/uL) Date Value 01/12/2013 239 PLT (10*3/L) Date Value 02/28/2020 278 K Date Value 02/28/2020 3.4 mmol/L (L) 01/12/2013 4.5 MMOL/L INR (no units) Date Value 02/24/2020 0.9 HGB Date Value 02/28/2020 13.1 g/dL 01/12/2013 16.5 G/DL (H) BUN Date Value 02/28/2020 32 mg/dL (H) 01/12/2013 15 MG/DL HCT (%) Date Value 02/28/2020 40.0 01/12/2013 47.3 (H) CREATININE Date Value 02/28/2020 0.63 mg/dL 01/12/2013 0.65 MG/DL LIPID PROFILE GLUCOSE Date Value 02/28/2020 86 mg/dL 01/12/2013 106 MG/DL CHOL (mg/dL) Date Value 01/29/2020 215 (H) TSH LDL CHOL (mg/dL) Date Value 01/29/2020 81 TSH (mIU/L) Date Value 01/29/2020 0.25 (L) CARDIAC ENZYMES HDL (mg/dL) Date Value 01/29/2020 122 CK (U/L) Date Value 01/29/2020 36 TRIG (mg/dL) Date Value 01/29/2020 61 LFTs CK-MB (ng/mL) Date Value 01/12/2013 0.6 AST(SGOT) (U/L) Date Value 02/26/2020 31 TROPONIN I (ng/mL) Date Value 02/25/2020 0.023 01/12/2013 0.006 ALT(SGPT) (U/L) Date Value 06/09/2019 49 ALTv (U/L) Date Value 02/26/2020 21 No results found for: BNP LDL CHOL (mg/dL) Date Value 01/29/2020 81 Recent Labs 02/25/20 0520 TROPNI 0.023 Recent Labs 01/29/20 0845 TRIG 61 LDL CHOL (mg/dL) Date Value 01/29/2020 81 NT-proBNP (pg/mL) Date Value 02/26/2020 335 (H) 01/12/2013 186 (H) ASSESSMENT AND PLAN Principal Problem: COPD with acute exacerbation Active Problems: Tobacco abuse Sinus tachycardia Coronary artery calcification seen on CT scan TAY (dyspnea on exertion) Elevated brain natriuretic peptide (BNP) level Chronic respiratory failure with hypoxia, on home O2 therapy Acute on chronic diastolic congestive heart failure TAY NYHA Class III-IV: Acute hypoxic respiratory failure: COPD exacerbation: as per primary team/pulmonary team. Echo recent shows preserved LV EF. Tele monitoring: No arrhythmias noted. Elevated BNP: in the setting of acute COPD Exacerbation. Probably mild diastolic heart failure. Consider to change IV lasix to PO lasix. Coronary artery calcification noted in CT 2017. Recommend ASA 81 mg daily, LDL < 70 Dyslipidemia: Recommended to keep LDL < 70. Lifestyle modifications stressed. Victor Hugo Bailon MD, [facility], [facility] An/Syq 13 Nav/C2 Operator, Division of Cardiology [facility] afiq Tucker MD - 02/27/2020 5:[address] [facility] Medicine Progress Note Name: Mariana Turner : 1955 Admit Date: 02/24/2020 PCP on file: Yasemin Dietrich ASSESSMENT: Mariana Turner is a 65 year old female with PLAN: # Acute on chronic hypoxic and hypercapneic respiratory failure # Acute COPD exacerbation # acute respiratory acidosis # Acute diastolic CHF # Hx of stage 4 severe COPD - Requiring bipap initially - continue steroid, empiric abx day 4, and bronchodilators - appreciate pulmonology 's input. D/c'd pulmicort - Bipap prn - IV lasix 20 mg BID - Pulmonology and Cardiology consulted # Active smoker Counseled on smoking cessation Nicotine patch # Anxiety Xanax prn # Hyponatremia, mild, resolved Dispo: Home in 1-2d VTE Prophylaxis: enoxaparin Code Status: [facility] was verified during stay Electronically signed by: Rafiq Tucker MD SUBJECTIVE/ 24-HOUR HOSPITAL EVENTS: /4: off BiPAP now. Emery better. 5: Needs BiPAP at night. Emery better. 6: no acute event. OBJECTIVE: Vital signs range: Temp: [36.1 C (96.9 F)-36.7 C (98 F)] 36.6 C (97.9 F) Pulse: [67-93] 88 Resp: [11-22] 16 BP: (106-153)/(64-77) 120/71 Most recent vital signs: BP 120/71 | Pulse 88 | Temp 36.6 C (97.9 F) (Temporal Artery) | Resp 16 | Ht 1.575 m (5' 2") | Wt 53.5 kg (117 lb 15.1 oz) | SpO2 95% | BMI 21.57 kg/m I/O: I/O last 3 completed shifts: In: 310 [Oral:110; I.V.:200] Out: 1900 [Urine:1900] PHYSICAL EXAM: General: alert and oriented x [...] the relevant patient's new lab test results No results found for this or any previous visit (from the past 24 hour(s)). IMAGING: I reviewed all the relevant patient's new radiology test results Hospital Encounter on 02/24/20 XR CHEST 1 VW COVID Narrative XR CHEST 1 VW COVID Comparison: 02/09/2020 History: dyspnea Findings: The lungs exhibit chronic emphysematous changes with prominent left apical lucency and flattening of the diaphragm. No pleural effusion, focal consolidation, or pneumothorax is identified. The cardiomediastinal silhouette is normal in size. Surgical judith project over the mediastinum and right axillary soft tissues. Postsurgical changes of right mastectomy. No acute osseous abnormality is present. Impression No acute cardiopulmonary abnormality. Chronic emphysematous changes. Disclaimer: Generally, the findings on chest imaging in COVID-19 are not specific, and overlap with other infections, including influenza, H1N1, SARS and MERS. According to the Centers for Disease Control (CDC) and recent statement of the [place] [employer], viral testing remains the only specific method of diagnosis. Confirmation with the viral test is required, even if radiologic findings are suggestive of COVID-[address] Preliminary Report Dictated by Resident: Mike Bermeo MD., have reviewed this study and agree with the above report. MEDICATIONS: I reviewed the current inpatient medications ordered Current Facility-Administered Medications Medication Dose Route Frequency Last Rate Last Dose ALPRAZolam (XANAX) tablet 0.5 mg 0.5 mg Oral TIDPRN 0.5 mg at 02/26/20 2357 doxycycline (VIBRAMYCIN) 100 mg in NaCl 0.9% (NS) 100 mL MINI-BAG 100 mg IV Piggyback Q12H ABX 100 mg at 02/27/20 1321 ipratropium (ATROVENT) 0.02 % nebulizer solution 0.5 mg 0.5 mg Inhalation Q6H 0.5 mg at 02/27/20 1256 levalbuterol (XOPENEX) nebulizer solution 1.25 mg 1.25 mg Inhalation Q6H 1.25 mg at 02/27/20 1256 predniSONE (DELTASONE) tablet 40 mg 40 mg Oral DAILY 40 mg at 02/27/20 0743 docusate (COLACE) capsule 100 mg 100 mg Oral BID 100 mg at 02/27/20 0743 enoxaparin (LOVENOX) injection 40 mg 40 mg Subcutaneous DAILY 40 mg at 02/27/20 0742 furosemide (LASIX) injection 20 mg 20 mg Slow IV Push Q12H 20 mg at 02/27/20 0743 nicotine (NICODERM) 14 mg/24 hr patch 1 Patch 1 Patch Topical Q24H 1 Patch at 02/26/20 2311 ondansetron (ZOFRAN (PF)) injection 4 mg 4 mg Slow IV Push Q6HPRN ai, MD Victor Hugo - 02/27/2020 2:20 PM CDT [facility] Cardiology progress note Date of Service: 02/27/2020 Mariana Turner is a 65 years old female hospitalized for COPD Exacerbation. No new cardiac complaints noted. PHYSICAL EXAM Vitals: 02/27/20 0800 02/27/20 1200 02/27/20 1257 02/27/20 1324 BP: (!) 153/77 116/77 Pulse: 88 85 Resp: 18 16 16 13 Temp: 36.7 C (98 F) 36.6 C (97.9 F) TempSrc: Temporal Artery Temporal Artery SpO2: 93% 93% 96% 94% Weight: Height: Date 02/27/20 0700 - 02/28/20 0659 Shift 1012-3748 8369-0005 6576-7237 24 Hour Total INTAKE Oral 360 360 Shift Total 360 360 OUTPUT Urine(mL/kg/hr) 400 400 Shift Total 400 400 Weight (kg) 54.5 54.5 54.5 54.5 General: no apparent distress HEENT: normocephalic atraumatic [...] Value 01/12/2013 6.3 WBC (10*3/L) Date Value 02/26/2020 17.03 (H) NA Date Value 02/26/2020 134 mmol/L (L) 01/12/2013 139 MMOL/L No results found for: PT PLT x10^3 (/uL) Date Value 01/12/2013 239 PLT (10*3/L) Date Value 02/26/2020 312 K Date Value 02/26/2020 3.9 mmol/L 01/12/2013 4.5 MMOL/L INR (no units) Date Value 02/24/2020 0.9 HGB Date Value 02/26/2020 12.4 g/dL 01/12/2013 16.5 G/DL (H) BUN Date Value 02/26/2020 25 mg/dL (H) 01/12/2013 15 MG/DL HCT (%) Date Value 02/26/2020 38.1 01/12/2013 47.3 (H) CREATININE Date Value 02/26/2020 0.59 mg/dL 01/12/2013 0.65 MG/DL LIPID PROFILE GLUCOSE Date Value 02/26/2020 172 mg/dL (H) 01/12/2013 106 MG/DL CHOL (mg/dL) Date Value 01/29/2020 215 (H) TSH LDL CHOL (mg/dL) Date Value 01/29/2020 81 TSH (mIU/L) Date Value 01/29/2020 0.25 (L) CARDIAC ENZYMES HDL (mg/dL) Date Value 01/29/2020 122 CK (U/L) Date Value 01/29/2020 36 TRIG (mg/dL) Date Value 01/29/2020 61 LFTs CK-MB (ng/mL) Date Value 01/12/2013 0.6 AST(SGOT) (U/L) Date Value 02/26/2020 31 TROPONIN I (ng/mL) Date Value 02/25/2020 0.023 01/12/2013 0.006 ALT(SGPT) (U/L) Date Value 06/09/2019 49 ALTv (U/L) Date Value 02/26/2020 21 No results found for: BNP LDL CHOL (mg/dL) Date Value 01/29/2020 81 Recent Labs 02/25/20 0520 TROPNI 0.023 Recent Labs 01/29/20 0845 TRIG 61 LDL CHOL (mg/dL) Date Value 01/29/2020 81 NT-proBNP (pg/mL) Date Value 02/26/2020 335 (H) 01/12/2013 186 (H) ASSESSMENT AND PLAN Principal Problem: COPD with acute exacerbation Active Problems: Tobacco abuse Sinus tachycardia Coronary artery calcification seen on CT scan TAY (dyspnea on exertion) Elevated brain natriuretic peptide (BNP) level Chronic respiratory failure with hypoxia, on home O2 therapy Acute on chronic diastolic congestive heart failure TAY NYHA Class III-IV: Acute hypoxic respiratory failure: COPD exacerbation: as per primary team/pulmonary team. Echo recent shows preserved LV EF. Tele monitoring: No arrhythmias noted. Elevated BNP: in the setting of acute COPD Exacerbation. Probably mild diastolic heart failure. Continue diuresis as tolerated. May change IV lasix to PO lasix. Coronary artery calcification noted in CT 2017. Recommend ASA 81 mg daily, LDL < 70 Dyslipidemia: Recommended to keep LDL < 70. Lifestyle modifications stressed. Rx plan reviewed with the patient. Victor Hugo Bailon MD, FAC, YOSEF An/Syq 13 Nav/C2 Operator, Division of Cardiology [facility] afiq Cortez MD - 02/26/2020 7:54 PM CDTPatient has respiratory acidosis. Rafiq Lindquist MD - 02/26/2020 6:30 PM CDT Hospital Medicine Progress Note Name: Mariana Turner : 1955 Admit Date: 02/24/2020 PCP on file: Yasemin Dietrich ASSESSMENT: Mariana Turner is a 65 year old female with PLAN: # Acute on chronic hypoxic and hypercapneic respiratory failure # Acute COPD exacerbation # Acute diastolic CHF # Hx of stage 4 severe COPD - Requiring bipap initially - continue steroid, empiric abx day 3, and bronchodilators - appreciate pulmonology 's input. D/c'd pulmicort - Bipap prn - IV lasix 20 mg BID - Pulmonology and Cardiology consulted # Active smoker Counseled on smoking cessation Nicotine patch # Anxiety Xanax prn # Hyponatremia, mild # Chronic metabolic alklalosis Dispo: Home in 1-2d VTE Prophylaxis: enoxaparin Code Status: [facility] was verified during stay Electronically signed by: Rafiq Tucker MD SUBJECTIVE/ 24-HOUR HOSPITAL EVENTS: 4: off BiPAP now. Emery better. 5: Needs BiPAP at night. Emery better. OBJECTIVE: Vital signs range: Temp: [36.5 C (97.7 F)-37.2 C (98.9 F)] 36.5 C (97.7 F) Pulse: [67-98] 79 Resp: [12-21] 16 BP: (101-124)/(63-86) 117/63 Most recent vital signs: BP 117/63 | Pulse 79 | Temp 36.5 C (97.7 F) (Tympanic) | Resp 16 | Ht 1.575 m (5' 2") | Wt 54.5 kg (120 lb 2.4 oz) | SpO2 99% | BMI 21.98 kg/m I/O: I/O last 3 completed shifts: In: 484 [Oral:284; I.V.:200] Out: 1974 [Urine:1975] PHYSICAL EXAM: General: alert and oriented x [...] Recent Results (from the past 24 hour(s)) ACUTE CARE VENOUS BLOOD GAS Collection Time: 02/26/20 2:44 AM Result Value Ref Range PH 7.40 7.32 - 7.42 PCO2 QUINCY 49 41 - 51 mmHg PO2 QUINCY 89 (HH) 25 - 40 mmHg HCO3 QUINCY 30 (H) 24 - 28 mEq/L AC VBE(BEAKER) 4.4 mEq/L COMP. METABOLIC PANEL (49750) Collection Time: 02/26/20 2:45 AM Result Value Ref Range NA 134 (L) 135 - 145 mmol/L K 3.9 3.5 - 5.0 mmol/L CL 89 (L) 98 - 108 mmol/L CO2 TOTAL 45 (H) 23 - 31 mmol/L AGAP <1 (L) 2 - 16 BUN 25 (H) 7 - 23 mg/dL GLUCOSE 172 (H) 70 - 110 mg/dL CREATININE 0.59 0.50 - 1.04 mg/dL TOTAL BILI 0.2 0.1 - 1.1 mg/dL CALCIUM 8.7 8.6 - 10.6 mg/dL T PROTEIN 6.0 (L) 6.3 - 8.2 g/dL ALBUMIN 3.5 3.5 - 5.0 g/dL ALK PHOS 48 34 - 122 U/L ALTv 21 5 - 35 U/L AST(SGOT) 31 13 - 40 U/L eGFR Calculation (Non-) 102.9 mL/min/1.73m2 eGFR Calculation () 124.8 mL/min/1.73m2 N-TERMINAL PRO-BNP Collection Time: 02/26/20 2:45 AM Result Value Ref Range NT-proBNP 335 (H) <=125 pg/mL CBC WITH DIFFERENTIAL Collection Time: 02/26/20 2:45 AM Result Value Ref Range WBC 17.03 (H) 4.30 - 11.10 10*3/L RBC 3.90 (L) 3.93 - 5.25 10*6/L HGB 12.4 11.6 - 15.0 g/dL HCT 38.1 35.7 - 45.2 % MCV 97.7 (H) 80.6 - 95.5 fL MCH 31.8 25.9 - 32.8 pg MCHC 32.5 31.6 - 35.1 g/dL RDW-SD 48.5 39.0 - 49.9 fL RDW-CV 13.5 12.0 - 15.5 % PLT 312 166 - 358 10*3/L MPV 9.3 (L) 9.5 - 12.9 fL NRBC/100 WBC 0.0 0.0 - 10.0 /100 WBCs NRBC x10^3 <0.01 10*3/L GRAN MAT (NEUT) % 93.1 % IMM GRAN % 0.90 % LYMPH % 2.8 % MONO % 3.1 % EOS % 0.0 % BASO % 0.1 % GRAN MAT x10^3(ANC) 15.86 (H) 1.88 - 7.09 10*3/uL IMM GRAN x10^3 0.16 (H) 0.00 - 0.06 10*3/uL LYMPH x10^3 0.47 (L) 1.32 - 3.29 10*3/uL MONO x10^3 0.53 0.33 - 0.92 10*3/uL EOS x10^3 <0.03 (L) 0.03 - 0.39 10*3/uL BASO x10^3 <0.03 0.01 - 0.07 10*3/uL IMAGING: I reviewed all the relevant patient's new radiology test results Hospital Encounter on 02/24/20 XR CHEST 1 VW COVID Narrative XR CHEST 1 VW COVID Comparison: 02/09/2020 History: dyspnea Findings: The lungs exhibit chronic emphysematous changes with prominent left apical lucency and flattening of the diaphragm. No pleural effusion, focal consolidation, or pneumothorax is identified. The cardiomediastinal silhouette is normal in size. Surgical judith project over the mediastinum and right axillary soft tissues. Postsurgical changes of right mastectomy. No acute osseous abnormality is present. Impression No acute cardiopulmonary abnormality. Chronic emphysematous changes. Disclaimer: Generally, the findings on chest imaging in COVID-19 are not specific, and overlap with other infections, including influenza, H1N1, SARS and MERS. According to the Centers for Disease Control (CDC) and recent statement of the [employer], viral testing remains the only specific method of diagnosis. Confirmation with the viral test is required, even if radiologic findings are suggestive of COVID-[address] Preliminary Report Dictated by Resident: Mike Bermeo MD., have reviewed this study and agree with the above report. MEDICATIONS: I reviewed the current inpatient medications ordered Current Facility-Administered Medications Medication Dose Route Frequency Last Rate Last Dose ALPRAZolam (XANAX) tablet 0.5 mg 0.5 mg Oral TIDPRN 0.5 mg at 02/26/20 1348 doxycycline (VIBRAMYCIN) 100 mg in NaCl 0.9% (NS) 100 mL MINI-BAG 100 mg IV Piggyback Q12H ABX 100 mg at 02/26/20 1343 ipratropium (ATROVENT) 0.02 % nebulizer solution 0.5 mg 0.5 mg Inhalation Q6H 0.5 mg at 02/26/20 1354 levalbuterol (XOPENEX) nebulizer solution 1.25 mg 1.25 mg Inhalation Q6H 1.25 mg at 02/26/20 1354 predniSONE (DELTASONE) tablet 40 mg 40 mg Oral DAILY 40 mg at 02/26/20 0800 docusate (COLACE) capsule 100 mg 100 mg Oral BID 100 mg at 02/25/20 2030 enoxaparin (LOVENOX) injection 40 mg 40 mg Subcutaneous DAILY 40 mg at 02/26/20 0756 furosemide (LASIX) injection 20 mg 20 mg Slow IV Push Q12H 20 mg at 02/26/20 0800 nicotine (NICODERM) 14 mg/24 hr patch 1 Patch 1 Patch Topical Q24H 1 Patch at 02/25/20 2330 ondansetron (ZOFRAN (PF)) injection 4 mg 4 mg Slow IV Push Q6HPRN Etta Perez - 02/26/2020 11:40 AM CDTRoutine televisit with patient - she stated that her spirit and her emotions are well today. She states she has no spiritual and/or emotional concerns. She did accept prayer when spiritual and/or emotional support was offered. Treasury Accountant provided support through the initiation of a relationship of care and support by phone and through prayer. Future lift truck operator support is available if needed/wanted. ETDuKael mccray MD - 02/26/2020 10:57 AM CDT PULMONARY CONSULTATION NOTE Date of Service: 02/26/2020 HPI: Mariana Turner is a 65 year old female with COPD, chronic hypoxic respiratory failure, h/o breast cancer admitted with acute on chronic hypercapnic respiratory failure. Denies chest pain, cough or hemoptysis. Lower extremity edema improving. Since yesterday dyspnea improving Diuresing well with lasix Slept well & less anxious Current Facility-Administered Medications: ALPRAZolam (XANAX) tablet 0.5 mg, 0.5 mg, Oral, TIDPRN, Rafiq Tucker MD, 0.5 mg at 02/25/20 1404 doxycycline (VIBRAMYCIN) 100 mg in NaCl 0.9% (NS) 100 mL MINI-BAG, 100 mg, IV Piggyback, Q12H ABX, Vivian, Adnan, MD, 100 mg at 02/26/20 0226 ipratropium (ATROVENT) 0.02 % nebulizer solution 0.5 mg, 0.5 mg, Inhalation, Q6H, Rafiq Tucker MD, 0.5 mg at 02/26/20 0710 levalbuterol (XOPENEX) nebulizer solution 1.25 mg, 1.25 mg, Inhalation, Q6H, Rafiq Tucker MD, 1.25 mg at 02/26/20 0710 predniSONE (DELTASONE) tablet 40 mg, 40 mg, Oral, DAILY, Rafiq Tucker MD, 40 mg at 02/26/20 0800 docusate (COLACE) capsule 100 mg, 100 mg, Oral, BID, [place] MD, 100 mg at 02/25/20 2030 enoxaparin (LOVENOX) injection 40 mg, 40 mg, Subcutaneous, DAILY, [place] MD, 40 mg at 02/26/20 0756 furosemide (LASIX) injection 20 mg, 20 mg, Slow IV Push, Q12H, [place] MD, 20 mg at 02/26/20 0800 nicotine (NICODERM) 14 mg/24 hr patch 1 Patch, 1 Patch, Topical, Q24H, [place] MD, 1 Patch at 02/25/20 2330 ondansetron (ZOFRAN (PF)) injection 4 mg, 4 mg, Slow IV Push, Q6HPRN, [place] MD Physical examination: BP 114/63 | Pulse 75 | Temp 36.9 C (98.4 F) (Tympanic) | Resp 19 | Ht 5' 2" (1.575 m) | Wt 120 lb 2.4 oz (54.5 kg) | SpO2 91% | BMI 21.98 kg/m Alert & oriented Neck: No JVD Lungs: Clear air entry Abd: soft & nontender Extr: No edema Venous blood gas: 7.40/49/89 WBC: 17.7, Hgb 12.4 ASSESSMENT Mariana Turner is a 65 year old female with acute on chronic hypercapnic respiratory failure related to COPD with clinical improvements Plan: Continue use oxygen and titrate FiO2 to oxygen saturation > 92 % Improved acid base and oxygen ation noted on blood gas Continue doxycycline for 7 days and prednisone 40 mg/day for next 4 days followed by taper over 4 days Pulmonary edema is contributing to acute decompensation and continue current diuretics Educate about fluid limitation ( 2L/day) Continue nebulized levalbuterol Q 6 hrs and ipratropium Q 6 hrs Continue Nicotine patch Thank you for involving us in the care of this patient. Kael Jackson MD Pulmonary & Critical Care Medicine Saray Almaguer MD - 02/26/2020 9:05 AM CDT [facility] Cardiology progress note Date of Service: 02/26/2020 Mariana Turner is a 65 year old female hospitalized for COPD Exacerbation. No new cardiac complaints noted. PHYSICAL EXAM Vitals: 02/26/20 0711 02/26/20 0720 02/26/20 0800 02/26/20 0835 BP: 114/63 Pulse: Resp: 09 09 19 Temp: 36.9 C (98.4 F) TempSrc: Tympanic SpO2: 96% 100% 91% Weight: Height: General: no apparent distress HEENT: [...] Value 01/12/2013 6.3 WBC (10*3/L) Date Value 02/26/2020 17.03 (H) NA Date Value 02/26/2020 134 mmol/L (L) 01/12/2013 139 MMOL/L No results found for: PT PLT x10^3 (/uL) Date Value 01/12/2013 239 PLT (10*3/L) Date Value 02/26/2020 312 K Date Value 02/26/2020 3.9 mmol/L 01/12/2013 4.5 MMOL/L INR (no units) Date Value 02/24/2020 0.9 HGB Date Value 02/26/2020 12.4 g/dL 01/12/2013 16.5 G/DL (H) BUN Date Value 02/26/2020 25 mg/dL (H) 01/12/2013 15 MG/DL HCT (%) Date Value 02/26/2020 38.1 01/12/2013 47.3 (H) CREATININE Date Value 02/26/2020 0.59 mg/dL 01/12/2013 0.65 MG/DL LIPID PROFILE GLUCOSE Date Value 02/26/2020 172 mg/dL (H) 01/12/2013 106 MG/DL CHOL (mg/dL) Date Value 01/29/2020 215 (H) TSH LDL CHOL (mg/dL) Date Value 01/29/2020 81 TSH (mIU/L) Date Value 01/29/2020 0.25 (L) CARDIAC ENZYMES HDL (mg/dL) Date Value 01/29/2020 122 CK (U/L) Date Value 01/29/2020 36 TRIG (mg/dL) Date Value 01/29/2020 61 LFTs CK-MB (ng/mL) Date Value 01/12/2013 0.6 AST(SGOT) (U/L) Date Value 02/26/2020 31 TROPONIN I (ng/mL) Date Value 02/25/2020 0.023 01/12/2013 0.006 ALT(SGPT) (U/L) Date Value 06/09/2019 49 ALTv (U/L) Date Value 02/26/2020 21 No results found for: BNP LDL CHOL (mg/dL) Date Value 01/29/2020 81 Recent Labs 02/25/20 0520 TROPNI 0.023 Recent Labs 01/29/20 0845 TRIG 61 LDL CHOL (mg/dL) Date Value 01/29/2020 81 NT-proBNP (pg/mL) Date Value 02/26/2020 335 (H) 01/12/2013 186 (H) ASSESSMENT AND PLAN Principal Problem: COPD with acute exacerbation Active Problems: Tobacco abuse Sinus tachycardia Coronary artery calcification seen on CT scan TAY (dyspnea on exertion) Elevated brain natriuretic peptide (BNP) level Chronic respiratory failure with hypoxia, on home O2 therapy TAY NYHA Class III-IV: Acute hypoxic respiratory failure: COPD exacerbation: as per primary team/pulmonary team. No indication for volume overload. Echo recent shows preserved LV EF. Tele monitoring: No arrhythmias noted. Elevated BNP: in the setting of acute COPD Exaceberation May change IV lasix to PO lasix. Coronary artery calcification noted in CT 2017 Recommend ASA 81 mg daily, LDL < 70 Dyslipidemia: Recommended to keep LDL < 70. Lifestyle modifications stressed. Rx plan reviewed with the patient. Teto Almaguer MD 02/26/2020 9:05 AM An/Syq 13 Nav/C2 Operator, Division of Cardiology [facility] ETRafiq Tucker MD - 02/25/2020 6:[address] [facility] Medicine Progress Note Name: Mariana Turner : 1955 Admit Date: 02/24/2020 PCP on file: Yasemin Dietrich ASSESSMENT: Mariana Turner is a 65 year old female with PLAN: # Acute on chronic hypoxic and hypercapneic respiratory failure # Acute COPD exacerbation # Acute diastolic CHF # Hx of stage 4 severe COPD - Requiring bipap initially - continue steroid, empiric abx day 2, and bronchodilators - appreciate pulmonology 's input. D/c pulmicort - Bipap prn - IV lasix 20 mg BID - Pulmonology consult Dr. Klein - Cardiology consult Dr. Almaguer # Active smoker Counseled on smoking cessation Nicotine patch # Anxiety Xanax prn # Hyponatremia, mild # Chronic metabolic alklalosis Dispo: Home in 1-2d VTE Prophylaxis: enoxaparin Code Status: [facility] was verified during stay Electronically signed by: Rafiq Tucker MD SUBJECTIVE/ 24-HOUR HOSPITAL EVENTS: 02/24: off BiPAP now. Emery better. OBJECTIVE: Vital signs range: Temp: [36.1 C (97 F)-37.3 C (99.1 F)] 37.3 C (99.1 F) Pulse: [80-122] 122 Resp: [15-26] 15 BP: (108-164)/(59-106) 131/79 Most recent vital signs: BP 131/79 | Pulse 122 | Temp 37.3 C (99.1 F) | Resp 15 | Ht 1.575 m (5' 2") | Wt 57 kg (125lb 9.6 oz) | SpO2 92% | BMI 22.97 kg/m I/O: I/O last 3 completed shifts: In: - Out: 700 [Urine:700] PHYSICAL EXAM: General: alert and oriented x [...] CO2, GLUCOSE, BUN, CREATININE, CA) Collection Time: 02/24/20 6:52 PM Result Value Ref Range NA 133 (L) 135 - 145 mmol/L K 4.6 3.5 - 5.0 mmol/L CL 90 (L) 98 - 108 mmol/L CO2 TOTAL 41 (H) 23 - 31 mmol/L AGAP 2 2 - 16 BUN 9 7 - 23 mg/dL GLUCOSE 109 70 - 110 mg/dL CREATININE 0.51 0.50 - 1.04 mg/dL CALCIUM 9.0 8.6 - 10.6 mg/dL eGFR Calculation (Non-) 121.8 mL/min/1.73m2 eGFR Calculation () 147.6 mL/min/1.73m2 Hepatic Function Panel (ALB, T.PRO, BILI T, BU/BC, ALT, AST, ALK PHOS) Collection Time: 02/24/20 6:52 PM Result Value Ref Range TOTAL BILI 0.5 0.1 - 1.1 mg/dL BILI UNCON 0.5 0.1 - 1.1 mg/dL BILI CONJ 0.0 0.0 - 0.3 mg/dL T PROTEIN 7.4 6.3 - 8.2 g/dL ALBUMIN 4.4 3.5 - 5.0 g/dL ALK PHOS 47 34 - 122 U/L ALTv 36 (H) 5 - 35 U/L AST(SGOT) 35 13 - 40 U/L Troponin I Collection Time: 02/24/20 6:52 PM Result Value Ref Range TROPONIN I 0.028 <=0.034 ng/mL aPTT Collection Time: 02/24/20 6:52 PM Result Value Ref Range APTT Patient 25 23 - 38 Seconds Prothrombin Time (PT) / INR Collection Time: 02/24/20 6:52 PM Result Value Ref Range PROTIME PATIENT 11.8 (L) 12.0 - 14.7 Seconds INR 0.9 N-TERMINAL PRO-BNP Collection Time: 02/24/20 6:52 PM Result Value Ref Range NT-proBNP 231 (H) <=125 pg/mL CORONAVIRUS COVID-19 TESTING Collection Time: 02/24/20 6:52 PM Result Value Ref Range SARS-CoV-2 Rapid ID NOW Not Detected Not Detected CBC WITH DIFFERENTIAL Collection Time: 02/24/20 6:52 PM Result Value Ref Range WBC 11.33 (H) 4.30 - 11.10 10*3/L RBC 4.51 3.93 - 5.25 10*6/L HGB 14.2 11.6 - 15.0 g/dL HCT 44.0 35.7 - 45.2 % MCV 97.6 (H) 80.6 - 95.5 fL MCH 31.5 25.9 - 32.8 pg MCHC 32.3 31.6 - 35.1 g/dL RDW-SD 49.3 39.0 - 49.9 fL RDW-CV 13.6 12.0 - 15.5 % PLT 351 166 - 358 10*3/L MPV 8.9 (L) 9.5 - 12.9 fL NRBC/100 WBC 0.0 0.0 - 10.0 /100 WBCs NRBC x10^3 <0.01 10*3/L GRAN MAT (NEUT) % 69.2 % IMM GRAN % 0.90 % LYMPH % 19.1 % MONO % 8.4 % EOS % 2.0 % BASO % 0.4 % GRAN MAT x10^3(ANC) 7.85 (H) 1.88 - 7.09 10*3/uL IMM GRAN x10^3 0.10 (H) 0.00 - 0.06 10*3/uL LYMPH x10^3 2.16 1.32 - 3.29 10*3/uL MONO x10^3 0.95 (H) 0.33 - 0.92 10*3/uL EOS x10^3 0.23 0.03 - 0.39 10*3/uL BASO x10^3 0.04 0.01 - 0.07 10*3/uL AC PANEL 20 + LACTIC ACID Collection Time: 02/24/20 7:05 PM Result Value Ref Range PH 7.31 (L) 7.35 - 7.45 PCO2 78 (H) 35 - 45 mmHg PO2 62 (L) 80 - 100 mmHg HCO3 38 (H) 22 - 26 mEq/L BE 8.1 (H) -3.0 - 3.0 mEq/L THB 14.9 12.0 - 16.0 g/dL %O2HB 85.5 (L) 94.0 - 99.0 % %COHB ART 7.2 (H) 0.0 - 1.5 % %METHB ART 0.3 (L) 0.4 - 1.5 % VOL%O2 ART 17.9 15.0 - 23.0 % NA 133 (L) 135 - 145 mmol/L K+ 4.0 3.5 - 5.0 mmol/L AC CA IONZ 4.60 4.50 - 5.30 mg/dL GLUCOSE 118 (H) 70 - 110 mg/dL LACTIC ACID 1.42 0.50 - 2.20 mmol/L PROCALCITONIN Collection Time: 02/24/20 11:41 PM Result Value Ref Range Procalcitonin 0.03 <0.07 ng/mL Acute Care Arterial Blood Gas. Collection Time: 02/25/20 12:02 AM Result Value Ref Range PH 7.25 (L) 7.35 - 7.45 PCO2 81 (H) 35 - 45 mmHg PO2 69 (L) 80 - 100 mmHg HCO3 35 (H) 22 - 26 mEq/L BE 4.3 (H) -3.0 - 3.0 mEq/L LEGIONELLA URINARY ANTIGEN TST Collection Time: 02/25/20 1:18 AM Result Value Ref Range Legionella Urinary Antigen Negative Negative PNEUMOCOCCAL ANTIGEN Collection Time: 02/25/20 1:18 AM Result Value Ref Range S. pneumoniae antigen Negative Negative Acute Care Arterial Blood Gas. To be drawn at 0200 Collection Time: 02/25/20 2:08 AM Result Value Ref Range PH 7.33 (L) 7.35 - 7.45 PCO2 74 (H) 35 - 45 mmHg PO2 68 (L) 80 - 100 mmHg HCO3 38 (H) 22 - 26 mEq/L BE 8.6 (H) -3.0 - 3.0 mEq/L ACUTE CARE VENOUS BLOOD GAS Collection Time: 02/25/20 5:19 AM Result Value Ref Range PH 7.35 7.32 - 7.42 PCO2 QUINCY 68 (H) 41 - 51 mmHg PO2 QUINCY 86 (HH) 25 - 40 mmHg HCO3 QUINCY 36 (H) 24 - 28 mEq/L AC VBE(BEAKER) 7.8 mEq/L COMP. METABOLIC PANEL (42765) Collection Time: 02/25/20 5:20 AM Result Value Ref Range NA 139 135 - 145 mmol/L K 4.6 3.5 - 5.0 mmol/L CL 92 (L) 98 - 108 mmol/L CO2 TOTAL 42 (H) 23 - 31 mmol/L AGAP 5 2 - 16 BUN 11 7 - 23 mg/dL GLUCOSE 144 (H) 70 - 110 mg/dL CREATININE 0.44 (L) 0.50 - 1.04 mg/dL TOTAL BILI 0.5 0.1 - 1.1 mg/dL CALCIUM 8.6 8.6 - 10.6 mg/dL T PROTEIN 6.7 6.3 - 8.2 g/dL ALBUMIN 3.9 3.5 - 5.0 g/dL ALK PHOS 47 34 - 122 U/L ALTv 29 5 - 35 U/L AST(SGOT) 26 13 - 40 U/L eGFR Calculation (Non-) 144.4 mL/min/1.73m2 eGFR Calculation () 175.0 mL/min/1.73m2 N-TERMINAL PRO-BNP Collection Time: 02/25/20 5:20 AM Result Value Ref Range NT-proBNP 591 (H) <=125 pg/mL TROPONIN I Collection Time: 02/25/20 5:20 AM Result Value Ref Range TROPONIN I 0.023 <=0.034 ng/mL CBC WITH DIFFERENTIAL Collection Time: 02/25/20 5:20 AM Result Value Ref Range WBC 9.41 4.30 - 11.10 10*3/L RBC 4.27 3.93 - 5.25 10*6/L HGB 13.4 11.6 - 15.0 g/dL HCT 42.1 35.7 - 45.2 % MCV 98.6 (H) 80.6 - 95.5 fL MCH 31.4 25.9 - 32.8 pg MCHC 31.8 31.6 - 35.1 g/dL RDW-SD 49.2 39.0 - 49.9 fL RDW-CV 13.5 12.0 - 15.5 % PLT 337 166 - 358 10*3/L MPV 9.5 9.5 - 12.9 fL NRBC/100 WBC 0.0 0.0 - 10.0 /100 WBCs NRBC x10^3 <0.01 10*3/L GRAN MAT (NEUT) % 93.7 % IMM GRAN % 0.70 % LYMPH % 4.5 % MONO % 1.0 % EOS % 0.0 % BASO % 0.1 % GRAN MAT x10^3(ANC) 8.82 (H) 1.88 - 7.09 10*3/uL IMM GRAN x10^3 0.07 (H) 0.00 - 0.06 10*3/uL LYMPH x10^3 0.42 (L) 1.32 - 3.29 10*3/uL MONO x10^3 0.09 (L) 0.33 - 0.92 10*3/uL EOS x10^3 <0.03 (L) 0.03 - 0.39 10*3/uL BASO x10^3 <0.03 0.01 - 0.07 10*3/uL Acute Care Arterial Blood Gas. Collection Time: 02/25/20 1:33 PM Result Value Ref Range PH 7.39 7.35 - 7.45 PCO2 54 (H) 35 - 45 mmHg PO2 61 (L) 80 - 100 mmHg HCO3 32 (H) 22 - 26 mEq/L BE 5.8 (H) -3.0 - 3.0 mEq/L IMAGING: I reviewed all the relevant patient's new radiology test results Hospital Encounter on 02/24/20 XR CHEST 1 VW COVID Narrative XR CHEST 1 VW COVID Comparison: 02/09/2020 History: dyspnea Findings: The lungs exhibit chronic emphysematous changes with prominent left apical lucency and flattening of the diaphragm. No pleural effusion, focal consolidation, or pneumothorax is identified. The cardiomediastinal silhouette is normal in size. Surgical judith project over the mediastinum and right axillary soft tissues. Postsurgical changes of right mastectomy. No acute osseous abnormality is present. Impression No acute cardiopulmonary abnormality. Chronic emphysematous changes. Disclaimer: Generally, the findings on chest imaging in COVID-19 are not specific, and overlap with other infections, including influenza, H1N1, SARS and MERS. According to the Centers for Disease Control (CDC) and recent statement of the [employer], viral testing remains the only specific method of diagnosis. Confirmation with the viral test is required, even if radiologic findings are suggestive of COVID-[address] Preliminary Report Dictated by Resident: Gabriela Anglin I, Mike Crump MD., have reviewed this study and agree with the above report. MEDICATIONS: I reviewed the current inpatient medications ordered Current Facility-Administered Medications Medication Dose Route Frequency Last Rate Last Dose ALPRAZolam (XANAX) tablet 0.5 mg 0.5 mg Oral TIDPRN 0.5 mg at 02/25/20 1404 doxycycline (VIBRAMYCIN) 100 mg in NaCl 0.9% (NS) 100 mL MINI-BAG 100 mg IV Piggyback Q12H ABX 100 mg at 02/25/20 1330 ipratropium (ATROVENT) 0.02 % nebulizer solution 0.5 mg 0.5 mg Inhalation Q6H levalbuterol (XOPENEX) nebulizer solution 1.25 mg 1.25 mg Inhalation Q6H methylprednisolone sod succ (SOLU-MEDROL) injection 60 mg 60 mg Slow IV Push BID [START ON 02/26/2020] predniSONE (DELTASONE) tablet 40 mg 40 mg Oral DAILY docusate (COLACE) capsule 100 mg 100 mg Oral BID Stopped at 02/24/20 2215 enoxaparin (LOVENOX) injection 40 mg 40 mg Subcutaneous DAILY 40 mg at 02/25/20 0837 furosemide (LASIX) injection 20 mg 20 mg Slow IV Push Q12H 20 mg at 02/25/20 0839 nicotine (NICODERM) 14 mg/24 hr patch 1 Patch 1 Patch Topical Q24H 1 Patch at 02/24/20 2353 ondansetron (ZOFRAN (PF)) injection 4 mg 4 mg Slow IV Push Q6HPRN Juanpablo Barber RN - 02/25/2020 10:01 AM CDTCare Management Social Functional Assessment Patient Name: Mariana Turner Age: [age] year old Sex: female Patient's Previous Admission Date at [facility]: 01/29/2020 Current diagnosis and co-morbidities: COPD with acute exacerbation Readmission Questions: Was patient discharged from any acute care hospital within the last 30 days: No Social Functional Assessment: Primary language spoken/preferred: Ecuadorean Mental Status: Alert & Oriented to Person,Place & Time Information given by: Self Patient's support system: Other Name and number of support system: Charlotte Martinez friend [phone] Primary Milling Machine Operator: Self MPOA: Same as support system Living Arrangement: Mobile Home Address of living arrangement : [address] [place], [place] [address] [place] Persons living in home: Same as support system Barriers to returning home: None Baseline functional status- ambulation: Requires minimal to moderate assistance Functional status-baseline personal care: Requires minimal to moderate assistance Baseline functional status- driving: Requires minimal to moderate assistance Baseline functional status- grocery shopping: Requires minimal to moderate assistance Functional status-baseline housekeeping: Requires minimal to moderate assistance Functional status-baseline meal prep: Requires minimal to moderate assistance Current functional status same as prior: Yes Do you have a PCP?: Yes Name of PCP: Kar[facility] Agency: No Provider Services: No DME Company: Yes Name of DME company: [employer] [facility] [address], [address], [place] [address] (Ph) [phone] (F) [phone] Previous or current DME company: Current Equipment: Walker;O2:Portable tank available;O2: LPM Hemodialysis: No Community resources utilized: None Funding Resources: Commercial Prescription coverage plan: [facility] meds are filled: Other Other pharmacy: [facility] Anticipated services prior to disharge: Continue Medical [...] you or your support system able to product picker medications at discharge: yes. Describe: Juanpablo Hoff RN, BSN [facility] Cut Tobacco Bulker O [phone] documented in this encounter Plan of Treatment Date Type Specialty Care Team Description 03/01/2020 Office Visit Family Medicine Shanae Dietrich MD [address] [phone] 03/11/2020 Office Visit Cardiology Saray Almaguer MD [address] [place] [address] [place] [phone] 05/06/2020 Office Visit Pulmonary Disease Bimal Klein DO [address] [place] [phone] Health Maintenance Due Date Last Done [...] Associated Comments Diagnosis CBC WITH DIFFERENTIAL Routine 02/28/2020 5:52 Re sults for this AM CDT procedure are i n the results section. CBC WITH DIFFERENTIAL Routine 02/28/2020 5:52 Re sults for this AM CDT procedure are i n the results section. BASIC METABOLIC PANEL Routine 02/28/2020 5:52 Re sults for this (NA, K, CL, CO2, AM CDT procedure a re in GLUCOSE, BUN, the results CREATININE, CA) section. MAGNESIUM Routine 02/28/2020 5:52 Results for this AM CDT procedure are i n the results section. CBC WITH DIFFERENTIAL Routine 02/26/2020 2:45 Re sults for this AM CDT procedure are i n the results section. N-TERMINAL PRO-BNP Routine 02/26/2020 2:45 Resul ts for this AM CDT procedure are i n the results section. CBC WITH DIFFERENTIAL Routine 02/26/2020 2:45 Re sults for this AM CDT procedure are i n the results section. COMP. METABOLIC PANEL Routine 02/26/2020 2:45 Re sults for this ([id number]) AM CDT procedure are i n the results section. ACUTE CARE VENOUS Routine 02/26/2020 2:44 Result s for this BLOOD GAS AM CDT procedure are i n the results section. ACUTE CARE ARTERIAL Routine 02/25/2020 1:33 Resu lts for this BLOOD GAS PM CDT procedure are i n the results section. CBC WITH DIFFERENTIAL Routine 02/25/2020 5:20 Re sults for this AM CDT procedure are i n the results section. N-TERMINAL PRO-BNP Routine 02/25/2020 5:20 Resul ts for this AM CDT procedure are i n the results section. CBC WITH DIFFERENTIAL Routine 02/25/2020 5:20 Re sults for this AM CDT procedure are i n the results section. COMP. METABOLIC PANEL Routine 02/25/2020 5:20 Re sults for this ([id number]) AM CDT procedure are i n the results section. TROPONIN I Routine 02/25/2020 5:20 Results for this AM CDT procedure are i n the results section. ACUTE CARE VENOUS Routine 02/25/2020 5:19 Result s for this BLOOD GAS AM CDT procedure are i n the results section. ACUTE CARE ARTERIAL Routine 02/25/2020 2:08 Resu lts for this BLOOD GAS AM CDT procedure are i n the results section. PNEUMOCOCCAL ANTIGEN Routine 02/25/2020 1:18 Res ults for this AM CDT procedure are i n the results section. LEGIONELLA [facility]INARY Routine 02/25/2020 1:18 Resul ts for this ANTIGEN TST AM CDT procedure are i n the results section. ACUTE CARE ARTERIAL Routine 02/25/2020 12:02 Resu lts for this BLOOD GAS AM CDT procedure are i n the results section. PROCALCITONIN GRICEL 02/24/2020 11:41 Results fo r this PM CDT procedure are i n the results section. COVID-19 (PCR GRICEL 02/24/2020 11:39 Results fo r this MOLECULAR TESTING) PM CDT procedure are in the results section. RESPIRATORY PANEL BY GRICEL 02/24/2020 11:39 Res ults for this PCR PM CDT procedure are i n the results section. XR CHEST 1 VW COVID STAT 02/24/2020 7:20 Dyspnea, Resu lts for this PM CDT unspecified type procedure a re in the results section. AC PANEL 20 + LACTIC STAT 02/24/2020 7:05 Dyspnea, Res ults for this ACID PM CDT unspecified type procedure a re in the results section. EKG-12 LEAD Routine 02/24/2020 7:04 PM CDT COVID-19 (PCR STAT 02/24/2020 6:52 Dyspnea, Results fo r this MOLECULAR TESTING) PM CDT unspecified type proce dure are in the results section. CBC WITH DIFFERENTIAL STAT 02/24/2020 6:52 Dyspnea, Re sults for this PM CDT unspecified type procedure a re in the results section. N-TERMINAL PRO-BNP STAT 02/24/2020 6:52 Dyspnea, Resul ts for this PM CDT unspecified type procedure a re in the results section. ACTIVATED PARTIAL STAT 02/24/2020 6:52 Dyspnea, Result s for this THRMPLAS LO PM CDT unspecified type procedure a re in the results section. PROTHROMBIN TIME / INR STAT 02/24/2020 6:52 Dyspnea, R esults for this PM CDT unspecified type procedure a re in the results section. CBC WITH DIFFERENTIAL Routine 02/24/2020 6:52 Dyspnea, Re sults for this PM CDT unspecified type procedure a re in the results section. BASIC METABOLIC PANEL STAT 02/24/2020 6:52 Dyspnea, Re sults for this (NA, K, CL, CO2, PM CDT unspecified type procedu re are in GLUCOSE, BUN, the results CREATININE, CA) section. HEPATIC FUNCTION PANEL STAT 02/24/2020 6:52 Dyspnea, R esults for this ([id number]) PM CDT unspecified type procedure a re in (ALB,T.PRO,BILI the results T,BU/BC,ALT,AST,ALK section. PHOS) TROPONIN I STAT 02/24/2020 6:52 Dyspnea, Results for this PM CDT unspecified type procedure a re in the results section. EKG-12 LEAD STAT 02/24/2020 6:42 PM CDT documented in this encounter Results CBC WITH DIFFERENTIAL (02/28/2020 5:52 AM CDT) Pathologist Sig nature WBC 11.20 (H) 4.30 - 11.10 [facility] 10*3/L [facility] RBC 4.13 3.93 - 5.25 [facility] 10*6/L [facility] HGB 13.1 11.6 - 15.0 [facility] g/dL [facility] HCT 40.0 35.7 - 45.2 % [facility] MCV 96.9 (H) 80.6 - 95.5 fL [facility] MCH 31.7 25.9 - 32.8 pg [facility] MCHC 32.8 31.6 - 35.1 [facility] g/dL [facility] RDW-SD 49.1 39.0 - 49.9 fL [facility] RDW-CV 13.9 12.0 - 15.5 % [facility] PLT 278 166 - 358 [facility] 10*3/L [facility] MPV 9.0 (L) 9.5 - 12.9 fL [facility] NRBC/100 WBC 0.0 0.0 - 10.0 /100 [facility] WBCs [facility] NRBC x10^3 <0.01 10*3/L [facility] GRAN MAT (NEUT) % 70.8 % [facility] IMM GRAN % 0.60 % [facility] LYMPH % 19.4 % [facility] MONO % 8.7 % [facility] EOS % 0.4 % [facility] BASO % 0.1 % [facility] GRAN MAT x10^3(ANC) 7.94 (H) 1.88 - 7.09 [facility] 10*3/uL [facility] IMM GRAN x10^3 0.07 (H) 0.00 - 0.06 [facility] 10*3/uL [facility] LYMPH x10^3 2.17 1.32 - 3.29 [facility] 10*3/uL [facility] MONO x10^3 0.97 (H) 0.33 - 0.92 [facility] 10*3/uL [facility] EOS x10^3 0.04 0.03 - 0.39 [facility] 10*3/uL [facility] BASO x10^3 <0.03 0.01 - 0.07 [facility] 10*3/uL [facility] Specimen Blood - ARM, LEFT Performing Organization Address [facility] Phone Number [facility] CLIA: [id number], [address] MAGNESIUM (02/28/2020 5:52 AM CDT) Pathologist Sig nature MAGNESIUM 1.8 1.7 - 2.4 mg/dL [facility] Specimen Blood - ARM, LEFT Performing Organization Address [facility] Phone Number [facility] CLIA: [id number], [address] BASIC METABOLIC PANEL (NA, K, CL, CO2, GLUCOSE, BUN, CREATININE, CA) (02/28/2020 5:52 AM CDT) Pathologist Sig nature NA 135 135 - 145 [facility] mmol/L [facility] K 3.4 (L) 3.5 - 5.0 [facility] mmol/L [facility] CL 92 (L) 98 - 108 mmol/L [facility] CO2 TOTAL 43 (H) 23 - 31 mmol/L [facility] AGAP <1 (L) 2 - 16 [facility] BUN 32 (H) 7 - 23 mg/dL [facility] GLUCOSE 86 70 - 110 mg/dL [facility] CREATININE 0.63 0.50 - 1.04 [facility] mg/dL [facility] CALCIUM 9.4 8.6 - 10.6 [facility] mg/dL [facility] eGFR Calculation 95.4 mL/min/1.73m2 [facility] ([facility] LABORATORY Malaysian) eGFR Calculation 115.7 mL/min/1.73m2 [facility] () [facility] Specimen Blood - ARM, LEFT Narrative Performed At Association of Glomerular Filtration Rate (GFR) [facility] and Staging of Kidney Disease* [...] tests). Performing Organization Address City/State/Zipcode Phone Number [facility] CLIA: [id number], [address] [place], [place] [address] CBC WITH DIFFERENTIAL (02/26/2020 2:45 AM CDT) [facility] WBC 17.03 (H) 4.30 - 11.10 [facility] 10*3/L [facility] RBC 3.90 (L) 3.93 - 5.25 [facility] 10*6/L [facility] HGB 12.4 11.6 - 15.0 [facility] g/dL [facility] HCT 38.1 35.7 - 45.2 % [facility] MCV 97.7 (H) 80.6 - 95.5 fL [facility] MCH 31.8 25.9 - 32.8 pg [facility] MCHC 32.5 31.6 - 35.1 [facility] g/dL [facility] RDW-SD 48.5 39.0 - 49.9 fL [facility] RDW-CV 13.5 12.0 - 15.5 % [facility] PLT 312 166 - 358 [facility] 10*3/L [facility] MPV 9.3 (L) 9.5 - 12.9 fL [facility] NRBC/100 WBC 0.0 0.0 - 10.0 /100 [facility] WBCs [facility] NRBC x10^3 <0.01 10*3/L [facility] GRAN MAT (NEUT) % 93.1 % [facility] IMM GRAN % 0.90 % [facility] LYMPH % 2.8 % [facility] MONO % 3.1 % [facility] EOS % 0.0 % [facility] BASO % 0.1 % [facility] GRAN MAT x10^3(ANC) 15.86 (H) 1.88 - 7.09 [facility] 10*3/uL [facility] IMM GRAN x10^3 0.16 (H) 0.00 - 0.06 [facility] 10*3/uL [facility] LYMPH x10^3 0.47 (L) 1.32 - 3.29 [facility] 10*3/uL [facility] MONO x10^3 0.53 0.33 - 0.92 [facility] 10*3/uL [facility] EOS x10^3 <0.03 (L) 0.03 - 0.39 [facility] 10*3/uL [facility] BASO x10^3 <0.03 0.01 - 0.07 [facility] 10*3/uL [facility] Specimen Blood - VENOUS Performing Organization Address City/State/Zipcode Phone Number [facility] CLIA: [id number], [address] [place], [place] [address] N-TERMINAL PRO-BNP (02/26/2020 2:45 AM CDT) Pathologist Sig nature NT-proBNP 335 (H) <=125 pg/mL [facility] Specimen Blood - VENOUS Narrative Performed At Biotin has been reported to cause a negative [facility] bias, interpret results relative to patient's use of biotin. Performing Organization Address City/[facility]/Zipcode Phone Number [facility] CLIA: [id number], [address] [place], [place] [address] COMP. METABOLIC PANEL ([id number]) (02/26/2020 2:45 AM CDT) Pathologist Sig compropago NA 134 (L) 135 - 145 [facility] mmol/L [facility] K 3.9 3.5 - 5.0 [facility] mmol/L [facility] CL 89 (L) 98 - 108 mmol/L [facility] CO2 TOTAL 45 (H) 23 - 31 mmol/L [facility] AGAP <1 (L) 2 - 16 [facility] BUN 25 (H) 7 - 23 mg/dL [facility] GLUCOSE 172 (H) 70 - 110 mg/dL [facility] CREATININE 0.59 0.50 - 1.04 [facility] mg/dL [facility] TOTAL BILI 0.2 0.1 - 1.1 mg/dL [facility] CALCIUM 8.7 8.6 - 10.6 [facility] mg/dL [facility] T PROTEIN 6.0 (L) 6.3 - 8.2 g/dL [facility] ALBUMIN 3.5 3.5 - 5.0 g/dL [facility] ALK PHOS 48 34 - 122 U/L [facility] ALTv 21 5 - 35 U/L [facility] AST(SGOT) 31 13 - 40 U/L [facility] eGFR Calculation 102.9 mL/min/1.73m2 [facility] Malaysian) eGFR Calculation 124.8 mL/min/1.73m2 [facility] () [facility] Specimen Blood - VENOUS Narrative Performed At Association of Glomerular Filtration Rate (GFR) [facility] and Staging of Kidney Disease* [...] abnormalities in imaging tests). Performing Organization Address City/[facility] Phone Number [facility] CLIA: [id number], [address] [address] 15 [address] [facility] CARE VENOUS BLOOD GAS (02/26/2020 2:44 AM CDT) [facility] PH 7.40 7.32 - 7.42 [facility] PCO2 QUINCY 49 41 - 51 mmHg [facility] PO2 QUINCY 89 (HH) 25 - 40 mmHg [facility] HCO3 QUINCY 30 (H) 24 - 28 mEq/L [facility] AC VBE(BEAKER) 4.4 mEq/L [facility] Specimen Blood - VENOUS Performing Organization Address City/[facility] Phone Number [facility] CLIA: [id number], [address] [address] 15 LAB[address]ATORY [facility] Acute Care Arterial Blood Gas. (02/25/2020 1:33 PM CDT) Pathologist Sig nature PH 7.39 7.35 - 7.45 [facility] PCO2 54 (H) 35 - 45 mmHg [facility] PO2 61 (L) 80 - 100 mmHg [facility] HCO3 32 (H) 22 - 26 mEq/L [facility] BE 5.8 (H) -3.0 - 3.0 mEq/L [facility]ORY Specimen Blood - ARTERIAL Performing Organization Address City/State/Zipcode Phone Number [facility] CLIA: [id number], [address] [place], [place] [address] CBC WITH DIFFERENTIAL (02/25/2020 5:20 AM CDT) Pathologist Sig nature WBC 9.41 4.30 - 11.10 [facility] 10*3/L [facility] RBC 4.27 3.93 - 5.25 [facility] 10*6/L [facility] HGB 13.4 11.6 - 15.0 [facility] g/dL [facility] HCT 42.1 35.7 - 45.2 % [facility] MCV 98.6 (H) 80.6 - 95.5 fL [facility] MCH 31.4 25.9 - 32.8 pg [facility] MCHC 31.8 31.6 - 35.1 [facility] g/dL [facility]ITAL [facility] RDW-SD 49.2 39.0 - 49.9 fL [facility] RDW-CV 13.5 12.0 - 15.5 % [facility] PLT 337 166 - 358 [facility] 10*3/L [facility] MPV 9.5 9.5 - 12.9 fL [facility] NRBC/100 WBC 0.0 0.0 - 10.0 /100 [facility] WBCs [facility] NRBC x10^3 <0.01 10*3/L [facility] GRAN MAT (NEUT) % 93.7 % [facility] IMM GRAN % 0.70 % [facility] LYMPH % 4.5 % [facility] MONO % 1.0 % [facility] EOS % 0.0 % [facility] BASO % 0.1 % [facility] GRAN MAT x10^3(ANC) 8.82 (H) 1.88 - 7.09 [facility] 10*3/uL [facility] IMM GRAN x10^3 0.07 (H) 0.00 - 0.06 [facility] 10*3/uL [facility] LYMPH x10^3 0.42 (L) 1.32 - 3.29 [facility] 10*3/uL [facility] MONO x10^3 0.09 (L) 0.33 - 0.92 [facility] 10*3/uL [facility] EOS x10^3 <0.03 (L) 0.03 - 0.39 [facility] 103/uL [facility] BASO x10^3 <0.03 0.01 - 0.[address]3/uL [facility] Specimen Blood - ARM, RIGHT Performing Organization Address [facility] Phone Number [facility] CLIA: [id number], [address] TROPONIN I (02/25/2020 5:20 AM CDT) Pathologist Sig nature TROPONIN I 0.023 <=0.034 ng/mL [facility] Specimen Blood - ARM, RIGHT Narrative Performed At Equal or Less than 0.034 ng/ml---Normal [facility] Note: Cardiac troponin begins to [...] patient's use of biotin. Performing Organization Address [facility] Phone Number [facility] CLIA: [id number], [address] N-TERMINAL PRO-BNP (02/25/2020 5:20 AM CDT) Pathologist Sig nature NT-proBNP 591 (H) <=125 pg/mL [facility] Specimen Blood - ARM, RIGHT Narrative Performed At Biotin has been reported to cause a negative [facility] bias, interpret results relative to patient's use of biotin. Performing Organization Address City/State/Zipcode Phone Number [facility] CLIA: [id number], [address], [place] [address] COMP. METABOLIC PANEL ([id number]) (02/25/2020 5:20 AM CDT) NA 139 135 - 145 [facility] mmol/L [facility] K 4.6 3.5 - 5.0 [facility] mmol/L [facility] CL 92 (L) 98 - 108 mmol/L [facility] CO2 TOTAL 42 (H) 23 - 31 mmol/L [facility] AGAP 5 2 - 16 [facility] BUN 11 7 - 23 mg/dL [facility] GLUCOSE 144 (H) 70 - 110 mg/dL [facility] CREATININE 0.44 (L) 0.50 - 1.04 [facility] mg/dL [facility] TOTAL BILI 0.5 0.1 - 1.1 mg/dL [facility] CALCIUM 8.6 8.6 - 10.6 [facility] mg/dL [facility] T PROTEIN 6.7 6.3 - 8.2 g/dL [facility] ALBUMIN 3.9 3.5 - 5.0 g/dL [facility] ALK PHOS 47 34 - 122 U/L [facility] ALTv 29 5 - 35 U/L [facility] AST(SGOT) 26 13 - 40 U/L [facility] eGFR Calculation 144.4 mL/min/1.73m2 [facility] ([facility] LABORATORY Malaysian) eGFR Calculation 175.0 mL/min/1.73m2 [facility] () [facility] Specimen Blood - ARM, RIGHT Narrative Performed At [facility] of Glomerular Filtration Rate (GFR) [facility] and Staging of Kidney Disease* [...] abnormalities in imaging tests). Performing Organization Address [facility] Phone Number [facility] CLIA: [id number], [address] [address] 15 [facility] ACUTE CARE VENOUS BLOOD GAS (02/25/2020 5:19 AM CDT) Pathologist Sig nature PH 7.35 7.32 - 7.42 [facility] PCO2 QUINCY 68 (H) 41 - 51 mmHg [facility] PO2 QUINCY 86 (HH) 25 - 40 mmHg [facility] HCO3 QUINCY 36 (H) 24 - 28 mEq/L [facility] AC VBE(BEAKER) 7.8 mEq/L [facility] Specimen Blood - ARM, RIGHT Performing Organization Address [facility] HospitalcoTele[facility] Phone Number [facility] CLIA: [id number], [address] [phone] 15 [facility] Acute Care Arterial Blood Gas. To be drawn at 0200 (02/25/2020 2:08 AM CDT) Pathologist Sig nature PH 7.33 (L) 7.35 - 7.45 [facility] PCO2 74 (H) 35 - 45 mmHg [facility] PO2 68 (L) 80 - 100 mmHg [facility] HCO3 38 (H) 22 - 26 mEq/L [facility] BE 8.6 (H) -3.0 - 3.0 mEq/L [facility] Specimen Blood - ARTERIAL Performing Organization Address [facility] Hospitalcomn Phone Number [facility] CLIA: [id number], [address] [place], [place] [address] PNEUMOCOCCAL ANTIGEN (02/25/2020 1:18 AM CDT) Pathologist Sig nature S. pneumoniae antigen Negative Negative [facility] Specimen Urine - URINE, CLEAN CATCH Performing Organization Address [facility] [facility] [place] Phone Number [facility] CLIA: [id number], [address] [place] [address] 555 [facility] LEGIONELLA URINARY ANTIGEN TST (02/25/2020 1:18 AM CDT) Pathologist Sig nature Legionella Urinary Negative Negative [facility] Antigen SERVICES Specimen Urine - URINE, CLEAN CATCH Narrative Performed At Negative for L. pneumophilia serogroup I antigen in ur ine [facility] suggesting no recent or current infection. Infection d ue to Legionella cannot be ruled out since other serogroups and species may cause disease. Furthermore, antigens may n ot be present in urine during early stage of infection, or t he level of antigen present in urine may be below the det ection limit of the test. Performing Organization Address [facility] Phone Number [facility] CLIA: [id number], [address] [place] [address] 555 [facility] Acute Care Arterial Blood Gas. (02/25/2020 12:02 AM CDT) Pathologist Sig nature PH 7.25 (L) 7.35 - 7.45 [facility] PCO2 81 (H) 35 - 45 mmHg [facility] PO2 69 (L) 80 - 100 mmHg [facility] HCO3 35 (H) 22 - 26 mEq/L [facility] BE 4.3 (H) -3.0 - 3.0 mEq/L [facility] Specimen Blood - ARTERIAL Performing Organization Address [facility] Phone Number [facility] CLIA: [id number], [address] [place], [place] [address] [facility] PROCALCITONIN (02/24/2020 11:41 PM CDT) Natasha stark Procalcitonin 0.03 <0.07 ng/mL [facility] Specimen Blood - ARM, RIGHT Narrative Performed At INTERPRETATION OF PROCALCITONIN RESULTS IN ADULTS >= 1 8 [facility] YEARS OF AGE Initiation [...] failure + + + + if l laineyels does not decrease | >0.5 | Bacterial [...] abscess/empyema. For further information please refer to: [email or web address] Performing Organization Address City/[facility]/Zipcode Phone Number [facility] CLIA: [id number], [address] [place] [address] 555 [facility] CORONAVIRUS COVID-19 TESTING (02/24/2020 11:39 PM CDT) Pathologist Sig nature SARS-CoV-2 PCR Not Detected Not Detected [facility] Specimen Swab - NASOPHARYNGEAL SWAB Narrative Performed At [employer] SARS-CoV-2 Assay is a nucleic acid [facility] amplification test intended for the qualitative detect ion of RNA from SARS-CoV-2 from nasopharyngeal (FOUNDRY SUPERVISOR) specimens . It is used under Emergency Use Authorizatio n (EUA) by FDA. A positive result is indicative of the presence of SARS-CoV-2 RNA. Clinical correlation with patient hi story and other diagnostic information is necessary to deter mine patient infection status. A negative (Not Detected) result does not preclude SARS-CoV-2 infection. Clinical correlation with luda ent history and other diagnostic information should be use d in patient management decisions. Invalid: Unable to generate a valid test result on thi s specimen. Please submit a new specimen for repeat te sting if clinically indicated. Performing Organization Address City/[facility]/Zipcode Phone Number [facility] CLIA: [id number], [address] [place] [address] 555 [facility] RESPIRATORY PANEL BY PCR (02/24/2020 11:39 PM CDT) Pathologist [facility] nature Adenovirus Negative Negative [facility] Coronavirus HKU1 Negative Negative [facility] Coronavirus NL63 Negative Negative [facility] Coronavirus 229E Negative Negative [facility] Coronavirus OC43 Negative Negative [facility] Human Metapneumovirus Negative Negative [facility] Human Negative Negative [facility] Rhinovirus/Enterovirus SERVICES Influenza A Negative Negative [facility] Influenza B Negative Negative [facility] Parainfluenza Virus 1 Negative Negative [facility] Parainfluenza Virus 2 Negative Negative [facility] Parainfluenza Virus 3 Negative Negative [facility] Parainfluenza Virus 4 Negative Negative [facility] Respiratory Syncytial Negative Negative [facility] Virus SERVICES Bordetella parapertussis Negative Negative [facility] Bordetella pertussis Negative Negative [facility] Chlamydia pneumoniae Negative Negative [facility] Mycoplasma pneumoniae Negative Negative [facility] Specimen Swab - NASOPHARYNGEAL SWAB Narrative Performed At Negative: [facility] A negative result does not rule-out infection. This assay does not test for all potential infectio us agents. Positive: A positive test result does not necessarily indicate t he presence of viable organism. Performing Organization Address City/State/Zipcode Phone Number [facility] CLIA: [id number], [address] [place], [place] [address] [address] [facility] XR CHEST 1 VW COVID (02/24/2020 7:20 PM CDT) Specimen Impressions Performed At PACS/VR/DOSE No acute cardiopulmonary abnormality. Chronic emphysematous changes. Disclaimer: Generally, the findings on c hest imaging in COVID-19 are not specific, and overlap with other infecti ons, including influenza, H1N1, SARS and MERS. According to the Centers for Disease Control (CDC) and recent statement of the [employer], viral testing remai ns the only specific method of diagnosis. Confirmation with the viral test is required, even if radiologic findings are suggestive of CO VID-[address]. Preliminary Report Dictated by Resident: Mike Bermeo MD., have reviewe d this study and agree with the above report. Narrative Performed At XR CHEST 1 VW COVID PACS/VR/DOSE Comparison: 02/09/2020 History: dyspnea Findings: The lungs exhibit chronic emphysematous changes with p rominent left apical lucency and flattening of the diaphragm. No pleural effusion, focal consolidation, or pneumothorax is identi fied. The cardiomediastinal silhouette is norm al in size. Surgical judith project over the mediastinum and right axillary soft t issues. Postsurgical changes of right mastectomy. No acute osseous abnormality is present. Procedure Note [facility], Radiant Results Inft User - 2019 8:45 PM CDT XR CHEST 1 VW COVID Comparison: 02/09/2020 History: dyspnea Findings: The lungs exhibit chronic emphysematous changes with prominent left apical lucency and flattening of the diaphragm. No pleural effusion, focal consolidation, or pneumothorax is identi fied. The cardiomediastinal silhouette is norm al in size. Surgical judith project over the mediastinum and right a xillary soft tissues. Postsurgical changes of right mastectomy. No acute osseous abnormality is present. IMPRESSION No acute cardiopulmonary abnormality. Chronic emphysematous changes. Disclaimer: Generally, the findings on c hest imaging in COVID-19 are not specific, and overlap with other infecti ons, including influenza, H1N1, SARS and MERS. According to the Centers for Disease Con trol (CDC) and recent statement of the [employer], viral testing remains the only specific method of diagnosis. Confirmation with t he viral test is required, even if radiologic findings are suggestive of CO VID-[address]. Preliminary Report Dictated by Resident: Mike Bermeo MD., have reviewed this study and agree with the above report. Performing Organization Address City/State/Zipcode Phone Number PACS/VR/DOSE AC PANEL 20 + LACTIC ACID (02/24/2020 7:05 PM CDT) Pathologist Sig nature PH 7.31 (L) 7.35 - 7.45 [facility] PCO2 78 (H) 35 - 45 mmHg [facility] PO2 62 (L) 80 - 100 mmHg [facility] HCO3 38 (H) 22 - 26 mEq/L [facility] BE 8.1 (H) -3.0 - 3.0 mEq/L [facility] THB 14.9 12.0 - 16.0 g/dL [facility] %O2HB 85.5 (L) 94.0 - 99.0 % [facility] %COHB ART 7.2 (H) 0.0 - 1.5 % [facility] %METHB ART 0.3 (L) 0.4 - 1.5 % [facility] VOL%O2 ART 17.9 15.0 - 23.0 % [facility] NA 133 (L) 135 - 145 mmol/L [facility] K+ 4.0 3.5 - 5.0 mmol/L [facility] AC CA IONZ 4.60 4.50 - 5.30 mg/dL [facility] GLUCOSE 118 (H) 70 - 110 mg/dL [facility] LACTIC ACID 1.42 0.50 - 2.20 mmol/L [facility] Specimen Blood - ARTERIAL Performing Organization Address City/State/Zipcode Phone Number [facility] CLIA: [id number], [address] [address] CBC WITH DIFFERENTIAL (02/24/2020 6:52 PM CDT) Pathologist [facility] nature WBC 11.33 (H) 4.30 - 11.10 [facility] 10*3/L [facility] RBC 4.51 3.93 - 5.25 [facility] 10*6/L [facility] HGB 14.2 11.6 - 15.0 [facility] g/dL [facility] HCT 44.0 35.7 - 45.2 % [facility] MCV 97.6 (H) 80.6 - 95.5 fL [facility] MCH 31.5 25.9 - 32.8 pg [facility] MCHC 32.3 31.6 - 35.1 [facility] g/dL [facility] RDW-SD 49.3 39.0 - 49.9 fL [facility] RDW-CV 13.6 12.0 - 15.5 % [facility] PLT 351 166 - 358 [facility] 10*3/L [facility] MPV 8.9 (L) 9.5 - 12.9 fL [facility] NRBC/100 WBC 0.0 0.0 - 10.0 /100 [facility] WBCs [facility] NRBC x10^3 <0.01 10*3/L [facility] GRAN MAT (NEUT) % 69.2 % [facility] IMM GRAN % 0.90 % [facility] LYMPH % 19.1 % [facility] MONO % 8.4 % [facility] EOS % 2.0 % [facility] BASO % 0.4 % [facility] GRAN MAT x10^3(ANC) 7.85 (H) 1.88 - 7.09 [facility] 10*3/uL [facility]OS[facility]ITAL [facility] IMM GRAN x10^3 0.10 (H) 0.00 - 0.06 [facility] 10*3/uL [facility] LYMPH x10^3 2.16 1.32 - 3.29 [facility] 10*3/uL [facility] MONO x10^3 0.95 (H) 0.33 - 0.92 [facility] 10*3/uL [facility] EOS x10^3 0.23 0.03 - 0.39 [facility] 10*3/uL [facility] BASO x10^3 0.04 0.01 - 0.07 [facility] 10*3/uL [facility] Specimen Blood - VENOUS Performing Organization Address [facility] [place]/[facility]/Zipcode Phone Number [facility] CLIA: [id number], [address] [place] [address] 15 [facility] CORONAVIRUS COVID-19 TESTING (02/24/2020 6:52 PM CDT) SARS-CoV-2 Rapid ID Not Detected Not Detected [facility] Specimen Swab - NASOPHARYNGEAL SWAB Narrative Performed At [facility] COVID-19 Assay is an isothermal nucleic [facility] acid amplification test intended for the qualitative detection of nucleic acid from SARS-CoV-2 viral RNA in nasopharyngeal (FOUNDRY SUPERVISOR) specimens. It is used under Emergency Use Authorization (EUA) by FDA. The limit of detection (LOD) of the assay is 125 Genome Equivalents/mL. A positive result is indicative of the presence of SARS-CoV-2 RNA. Clinical correlation with patient history and other diagnostic information is necessary to determine patient infection status. A negative (Not Detected) result does not preclude SARS-CoV-2 infection. In patients with clinical symptoms and other tests that are consistent with SARS-CoV-2 infection, negative results should be treated as presumptive negative and a new specimen should be tested with alternative PCR molecular test. Invalid: Please collect a new specimen for repeat patient testing if clinically indicated. Performing Organization Address [facility]/Zipcode Phone Number [facility] CLIA: [id number], [address] [place] [address] [address] [facility] [address] N-TERMINAL PRO-BNP (02/24/2020 6:52 PM CDT) Pathologist Sig nature NT-proBNP 231 (H) <=125 pg/mL [facility] Specimen Blood - VENOUS Narrative Performed At Biotin has been reported to cause a negative [facility] bias, interpret results relative to patient's use of biotin. Performing Organization Address [facility] Phone Number [facility] CLIA: [id number], [address] [place] [address] Prothrombin Time (PT) / INR (02/24/2020 6:52 PM CDT) PROTIME PATIENT 11.8 (L) 12.0 - 14.7 [facility] LABORATORY INR 0.9Comment: Normal [facility] INR <1.1; Warfarin [facility] Therapeutic range LABORATORY 2.0 to 3.0 or 2.5 to 3.5, depending upon the indications. Specimen Blood - VENOUS Performing Organization Address [facility] [place] Phone Number [facility] CLIA: [id number], [address] [place] [address] aPTT (02/24/2020 6:52 PM CDT) Pathologist Sig nature APTT Patient 25 23 - 38 Seconds [facility] Specimen Blood - VENOUS Narrative Performed At The [facility] patient population mean normal value [facility] for aPTT is 30 seconds. Performing Organization Address [facility] Phone Number [facility] CLIA: [id number], [address] [place] [address] Troponin I (02/24/2020 6:52 PM CDT) Pathologist Sig nature TROPONIN I 0.028 <=0.034 ng/mL [facility] Specimen Blood - VENOUS Narrative Performed At Equal or Less than 0.034 ng/ml---Normal [facility] Note: Cardiac troponin begins to [...] patient's use of biotin. Performing Organization Address [facility] [place]/[facility] Phone Number [facility] CLIA: [id number], [address] [place] [address] [facility] Hepatic Function Panel (ALB, T.PRO, BILI T, BU/BC, ALT, AST, ALK PHOS) (02/24/2020 6:52 PM CDT) Pathologist Sig nature TOTAL BILI 0.5 0.1 - 1.1 mg/dL [facility] BILI UNCON 0.5 0.1 - 1.1 mg/dL [facility] BILI CONJ 0.0 0.0 - 0.3 mg/dL [facility] T PROTEIN 7.4 6.3 - 8.2 g/dL [facility] ALBUMIN 4.4 3.5 - 5.0 g/dL [facility] ALK PHOS 47 34 - 122 U/L [facility] ALTv 36 (H) 5 - 35 U/L [facility] AST(SGOT) 35 13 - 40 U/L [facility] Specimen Blood - VENOUS Performing Organization Address [facility] Phone Number [facility] CLIA: [id number], [address] [place] [address] [facility] Basic Metabolic Panel (NA, K, CL, CO2, GLUCOSE, BUN, CREATININE, CA) (02/24/2020 6:52 PM CDT) Pathologist Sig nature NA 133 (L) 135 - 145 [facility] mmol/L HOS[facility]ITAL [facility] K 4.6 3.5 - 5.0 [facility] mmol/L HOSPITAL [facility] CL 90 (L) 98 - 108 mmol/L [facility] CO2 TOTAL 41 (H) 23 - 31 mmol/L [facility] AGAP 2 2 - 16 [facility] BUN 9 7 - 23 mg/dL [facility] GLUCOSE 109 70 - 110 mg/dL [facility] CREATININE 0.51 0.50 - 1.04 [facility] mg/dL [facility] CALCIUM 9.0 8.6 - 10.6 [facility] mg/dL [facility] eGFR Calculation 121.8 mL/min/1.73m2 [facility] ([facility] LABORATORY [place]) eGFR Calculation 147.6 mL/min/1.73m2 [facility] () [facility] Specimen Blood - VENOUS Narrative Performed At [facility] of Glomerular Filtration Rate (GFR) [facility] and Staging of Kidney Disease* [...] tests). Performing Organization Address City/State/Zipcode Phone Number [facility] CLIA: [id number], [address] [place] [address] documented in this encounter Visit Diagnoses Diagnosis COPD with acute exacerbation - Primary Obstructive chronic bronchitis with exac erbation Dyspnea, unspecified type Tobacco use disorder, continuous Tobacco use disorder Acute on chronic diastolic congestive he art failure Acute on chronic diastolic heart failure Anxiety about health Chronic respiratory failure with hypoxia , on home O2 therapy Coronary artery calcification seen on CT scan TAY (dyspnea on exertion) Other dyspnea and respiratory abnormalit y Sinus tachycardia Other specified cardiac dysrhythmias Tobacco abuse Tobacco use disorder Elevated brain natriuretic peptide (BNP) level Other nonspecific findings on examinatio n of blood documented in this encounter Administered Medications Medication Order MAR Action Action Date Dose Rate Site ALPRAZolam (XANAX) tablet 0.5 mg Given 02/29/2020 1:20 PM CDT 0.5 mg 0.5 mg, Oral, TIDPRN, Starting Sat02/25/20 at 1347, Until Discontinued, Routine, anxiety Given 02/28/2020 8:30 PM CDT 0.5 mg Given 02/28/2020 8:29 AM CDT 0.5 mg docusate (COLACE) capsule 100 mg Given 02/29/2020 8:28 AM CDT 100 mg 100 mg, Oral, BID, First dose on Sat02/24/20 at 2215, Until Discontinued, Routine Given 02/28/2020 8:30 PM CDT 100 mg Given 02/28/2020 8:22 AM CDT 100 mg doxycycline (VIBRAMYCIN) 100 mg in NaCl 0.9% Given 04/2020 1:22 PM CDT 100 mg (NS) 100 mL MINI-BAG 100 mg, IV Piggyback, Q12H ABX, First dose on Sat02/25/20 at 0130, Until Discontinued, 100 mL, Reason for Anti-Infective: Empiric Therapy for Suspected Infection, Empiric Therapy Site: Respiratory, Duration of therapy: 7 days Given 02/29/2020 1:22 AM CDT 100 mg Given 02/28/2020 2:06 PM CDT 100 mg enoxaparin (LOVENOX) injection 40 mg Given 02/29/2020 8:28 AM CDT 40 mg Abdo men-SC 40 mg, Subcutaneous, DAILY, First dose on Sat02/25/20 at 0900, Until Discontinued, Routine Given 02/28/2020 8:22 AM CDT 40 mg Abdo men-SC Given 02/27/2020 7:42 AM CDT 40 mg Abdo men-SC furosemide (LASIX) tablet 20 mg Given 02/29/2020 8:28 AM CDT 20 mg 20 mg, Oral, DAILY, First dose on Sat02/29/20 at 0900, Until Discontinued, Routine ipratropium (ATROVENT) 0.02 % nebulizer Given 02/29/2020 1:10 P M CDT 0.5 mg solution 0.5 mg 0.5 mg, Inhalation, Q6H, First dose on Sat02/25/20 at 1800, Until Discontinued, Routine Given 02/29/2020 7:12 AM CDT 0.5 mg Given 02/29/2020 12:58 AM CDT 0.5 mg levalbuterol (XOPENEX) nebulizer solution Given 02/29/2020 1:11 PM CDT 1.25 mg 1.25 mg 1.25 mg, Inhalation, Q6H, First dose on Sat02/25/20 at 1800, Until Discontinued, Routine, Approved by: ADC PROVIDER Given 02/29/2020 7:12 AM CDT 1.25 mg Given 02/29/2020 12:58 AM CDT 1.25 mg nicotine (NICODERM) 14 mg/24 hr patch 1 Given 02/28/2020 11:21 P M CDT 1 Patch Patch 1 Patch, Topical, Administer over 24 Hours, Q24H, First dose on Sat02/24/20 at 2315, Until Discontinued, Routine Given 02/28/2020 12:24 AM CDT 1 Patch Given 02/26/2020 11:11 PM CDT 1 Patch ondansetron (ZOFRAN (PF)) injection 4 mg 4 mg, Slow IV Push, Q6HPRN, Starting Sat02/24/20 at 221 0, Until Discontinued, Routine, Nausea and Vomiting (N/V) Medication Order MAR Action Action Date Dose Rate Site albuterol (VENTOLIN) inhaler 2 Given 02/24/2020 7:00 PM CDT 2 P uffs Puff 2 Puff, Inhalation, ONCE, 1 dose, Sat02/24/20 at 2000, GRICEL, Is this order for a patient with suspected or confirmed COVID-19 infection? Yes budesonide (PULMICORT RESPULE) nebulizer Given 02/25/2020 7:27 AM CDT 0.5 mg solution 0.5 mg 0.5 mg, Inhalation, BID, First dose on Sat02/24/20 at 2215, Until Discontinued, Routine, science faculty member approving Restricted medication: MEGADC furosemide (LASIX) injection 20 mg Given 02/28/2020 8:22 AM CDT 20 mg 20 mg, Slow IV Push, Q12H, First dose on Sat02/24/20 at 2215, Until Discontinued, Routine Given 02/27/2020 8:04 PM CDT 20 mg Given 02/27/2020 7:43 AM CDT 20 mg furosemide (LASIX) injection 20 mg Given 02/25/2020 12:53 AM CDT 20 mg 20 mg, Slow IV Push, ONCE, 1 dose, [facility] 02/25/20 at 0130, GRICEL ipratropium (ATROVENT) 0.02 % nebulizer Given 02/24/2020 10:55 P M CDT 0.5 mg solution 0.5 mg 0.5 mg, Inhalation, Q4H, First dose on [facility] 02/25/20 at 0000, Until Discontinued, Routine ipratropium (ATROVENT) 0.02 % nebulizer Given 02/25/2020 7:27 A M CDT 0.5 mg solution 0.5 mg 0.5 mg, Inhalation, Q2H, First dose on [facility] 02/25/20 at 0030, Until Discontinued, Routine Given 02/25/2020 5:21 AM CDT 0.5 mg Given 02/25/2020 2:46 AM CDT 0.5 mg ipratropium (ATROVENT) 0.02 % nebulizer Given 02/25/2020 11:05 A M CDT 0.5 mg solution 0.5 mg 0.5 mg, Inhalation, Q4H, First dose on [facility] 02/25/20 at 1200, Until Discontinued, Routine KCL (KLOR-CON M20) tablet 40 mEq Given 02/28/2020 8:30 PM CDT 40 mEq 40 mEq, Oral, ONCE, 1 dose, [facility] 02/28/20 at 1630, Routine levalbuterol (XOPENEX) nebulizer solution Given 02/24/2020 1 0:57 PM CDT 1.25 mg 1.25 mg 1.25 mg, Inhalation, Q4H, First dose on [facility] 02/25/20 at 0000, Until Discontinued, Routine, Approved by: ADC PROVIDER levalbuterol (XOPENEX) nebulizer solution Given 02/25/2020 7:27 AM CDT 1.25 mg 1.25 mg 1.25 mg, Inhalation, Q2H, First dose on [facility] 02/25/20 at 0030, Until Discontinued, Routine, Approved by: ADC PROVIDER Given 02/25/2020 5:21 AM CDT 1.25 mg Given 02/25/2020 2:46 AM CDT 1.25 mg levalbuterol (XOPENEX) nebulizer solution Given 02/25/2020 1 1:05 AM CDT 1.25 mg 1.25 mg 1.25 mg, Inhalation, Q4H, First dose on Sat02/25/20 at 1200, Until Discontinued, Routine, Approved by: ADC PROVIDER LORazepam (ATIVAN) injection 0.25 mg Given 02/24/2020 11:53 PM CDT 0.25 mg 0.25 mg, Slow IV Push, BIDPRN, Starting Sat02/24/20 at 2212, Until Sat02/25/20 at 1347, Routine, Anxiety, Agitation melatonin (MELATIN) tablet 6 mg Given 02/27/2020 2:00 AM CDT 6 mg 6 mg, Oral, ONCE, 1 dose, 02/27/20 at 0200, Routine methylprednisolone sod succ (SOLU-MEDROL) Given 02/24/2020 6:53 PM CDT 125 mg injection 125 mg 125 mg, Slow IV Push, ONCE NOW, 1 dose, Sat02/24/20 at 2000, GRICEL methylprednisolone sod succ (SOLU-MEDROL) Given 02/25/2020 8:39 AM CDT 60 mg injection 60 mg 60 mg, Slow IV Push, BID, First dose on Sat02/25/20 at 0800, Until Discontinued, Routine methylprednisolone sod succ (SOLU-MEDROL) Given 02/25/2020 8:30 PM CDT 60 mg injection 60 mg 60 mg, Slow IV Push, BID, 1 dose, First dose on Sat02/25/20 at 2000, Routine predniSONE (DELTASONE) tablet 40 mg Given 02/29/2020 8:28 AM CDT 40 mg 40 mg, Oral, DAILY, 4 doses, First dose on Sat02/26/20 at 0900, Last dose on Sat02/29/20 at 0900, Routine Given 02/28/2020 8:22 AM CDT 40 mg Given 02/27/2020 7:43 AM CDT 40 mg documented in this encounter Additional Health Concerns Infection Onset Date Last Indicated Resolved Time COVID-19 Rule Out 02/25/2020 02/25/2020 02/27/2020 10: 50 AM CDT COVID-19 Rule Out 02/27/2020 02/27/2020 02/28/2020 3: 00 PM CDT documented as of this encounter Insurance Payer Benefit Plan Subscriber ID Effective Phone Address Typ e / Group Dates [facility] [id number] 2020-Prese PPO HEALTHCARE HEALTHCARE/AA nt [facility] MEDICAID OF xxxxxxxxx 2019-Prese [phone] Med icaid [place] nt [id number] [place] [address] documented as of this encounter
--- OUTSIDE RECORDS SUMMARY | 2020-03-12 13:52 | XMS REPORT | Summary of Care ---
:1955 Author Organization [facility] Address [address] [place] [id number] Care Team Providers Name Role Phone MD Epifanio Unavailable Royal Pederson RNdiver assistant Gianni Valenzuela STATION MECHANIC APPRENTICE Mat Puncher Unavailable Cherise Dietrich MD Primary Care Provider Reason for Referral (Routine) Status Reason Specialty Diagnoses / Referred By Referred To Procedures Contact Contact New Request Pulmonary Function Diagnoses COPD with acute exacerbation Mario Sheikh, Technologist Procedures CONSULT/REFERRAL PULMONARY REHAB [address] [place] [phone] (Routine) Status Reason Specialty Diagnoses / Referred By Referred To Procedures Contact Contact New Request Sleep Disorder Diagnoses COPD with acute exacerbation Mario Sheikh, Diagnostic Procedures SLEEP STUDY, ATTENDED [address] [place] [address] Radiology Services (STAT) Status Reason Specialty Diagnoses / Referred By Referred To Procedures Contact Contact New Request Diagnostic Diagnoses Dyspnea, unspecified type Bianka Hernandez, Radiology Procedures XR CHEST [address] [place] [address] [address] [place] [address] Reason for Visit Reason Comments Shortness of Breath Auth/Cert Status Reason Specialty Diagnoses / Referred By Referred To Procedures Contact Contact Emergency Medicine [facility] Em ergency Dept [address] [place] [address] Fax: Encounter Details Date Type Department Care Team Description 03/04/2020 - Hospital ADC Medicine Bianka Hernandez MD [address] [facility] [address] [place], [place] [id number] Acute on chronic 03/07/2020 Encounter Surgery Unit Mario Sheikh MD [address] [place], [place] [id number] respiratory failure [address] [place] [address] [place] [address] Allergies Active Allergy Reactions Severity Noted Date Comments Penicillins Rash 10/05/2016 documented as of this encounter (statuses as of 03/07/2020) Medications Medication Sig Dispensed Refills Start Date End Date Status calcium-vitamin D Take 1 tablet 30 tablet 2 04/11/2017 Active 500 mg(1,250mg) by mouth -200 unit per daily. tablet furosemide 20 mg Take 1 tablet 30 tablet 2 03/01/2020 03/31/20 2 Active tabletIndications by mouth daily 0 : Acute on for 30 days. chronic diastolic congestive heart failure buPROPion XL Take 1 tablet 60 tablet 1 03/01/2020 Ac tive (WELLBUTRIN XL) by mouth 150 mg 24 hr daily. tabletIndications : Tobacco abuse, Depression, unspecified depression type sodium chloride Use 3 mL as 100 Vial 10 03/01/2020 A ctive 0.9 % nebulizer directed every solutionIndicatio 6 (six) hours ns: Chronic as needed for obstructive Wheezing pulmonary (cough/congest disease, ion). unspecified COPD type fluticasone Inhale 200 mcg 30 Each 3 03/01/2020 Ac tive furoate-vilantero daily. l (BREO ELLIPTA) 200-25 mcg/dose DsDvIndications: Pulmonary emphysema, unspecified emphysema type, Chronic obstructive pulmonary disease, unspecified COPD type ipratropium 0.02 Inhale 2.5 mL 30 Vial 2 03/01/2020 Active % nebulizer every 6 (six) solutionIndicatio hours as ns: COPD needed for exacerbation Wheezing or Shortness of Breath. levalbuterol 0.63 Inhale 0.63 mg 30 Vial 2 03/01/2020 Active mg/3 mL nebulizer every 6 (six) solutionIndicatio hours as ns: COPD needed for exacerbation Wheezing or Shortness of Breath. doxycycline Take 1 capsule 60 capsule 0 03/07/2020 A ctive hyclate 100 mg by mouth 2 capsuleIndication (two) times s: COPD with daily. acute exacerbation ALPRAZolam 0.5 mg Take 1 tablet 28 tablet 0 03/07/2020 Active tabletIndications by mouth 2 : Anxiety about (two) times health daily as needed (anxiety). predniSONE 10 mg Take 40 mg po 32 tablet 0 02/29/2020 03/07/20 2 Discontinued tabletIndications qd x 3d, then 0 : SOB (shortness 30 mg qd x 3d, of breath), 20 mg qd x 3d, Tobacco use 10 mg qd x 3d, disorder, 5 mg qd x 3d continuous ALPRAZolam 0.5 mg Take 1 tablet 40 tablet 0 03/01/2020 02 Discontinued tabletIndications by mouth 2 0 ( Reorder) : Anxiety about (two) times health daily as needed (anxiety). predniSONE 20 mg Take 1 tablet 5 tablet 0 03/04/2020 03/07/20 2 Discontinued tabletIndications by mouth 0 : Dyspnea, daily. unspecified type, Hyponatremia documented as of this encounter (statuses as of 03/07/2020) Active Problems Problem Noted Date Acute on chronic respiratory failure 03/04/2020 Respiratory failure 03/04/2020 Acute on chronic diastolic congestive heart failure [...] as of this encounter (statuses as of 03/07/2020) Immunizations Name Administration Dates Next Due Influenza [...] been in contact with No / Unsure 03/04/2020 3:52 PM CDT someone who was confirmed or suspected to have Coronavirus / COVID-19? documented as of this encounter Last Filed Vital Signs Vital Sign Reading Time Taken Comments Blood Pressure 120/75 03/07/2020 11:24 AM CDT Pulse 107 03/07/2020 11:24 AM CDT Temperature 36.5 C (97.7 F) 03/07/2020 11:24 AM CDT Respiratory Rate 20 03/07/2020 11:24 AM CDT Oxygen Saturation 90% 03/07/2020 11:24 AM CDT Inhaled Oxygen Concentration - - Weight 59 kg (130 lb) 03/07/2020 5:00 AM CDT Height 157.5 cm (5' 2") 03/04/2020 8:28 PM CDT Body Mass Index 23.78 03/04/2020 8:28 PM CDT documented in this encounter Discharge Instructions InstructionsCorl, Latoya K, RN - 03/04/2020 Patient Discharge Instructions Discharge date: 03/07/2020 Procedure(s): Discharge Orders SLEEP STUDY, ATTENDED Time of study: Nocturnal Type of study: Diagnostic Sleep Study Indications: Snoring Associated medical condition: Other (see comments) COPD Contraindications to CPAP: NONE Is patient allowed to take prescribed or OTC medications during the time of testing? Yes Preferred Location? [facility] CONSULT/REFERRAL PULMONARY REHAB Order Comments: Respiratory Care Evaluation Requesting consult or referral? Referral Reason for referral - please evaluate and treat for: Pulmonary rehab Patient Preferred Location ADC PFT LAB-POB(aka PULMONARY) Regular Diet; Texture: Regular. Texture Regular. Diabetic: No Discharge Condition - Discharge Condition: GOOD Discharge Activity Discharge Activity: As Tolerated VTE Propylaxis- Was ordered during hospitalization Home Health Order Order Comments: I certify that Mariana Turner is under my care and that I, or a nurse practitioner or physician's assistant loan processor working with me, had a xlda-dp-ymgb encounter with this patient on: 03/07/2020. The encounter with Mariana Turner was in whole or in part, for the following medical condition(s), which is the primary reason for home health care: COPD. I am ordering and certify that based on my findings the following services are medically necessary home health services: Evaluation and Treatment, Home Safety Eval and Physical Therapy Eval & Treatment Alf Services: Medication Management and Teaching PCP follow up: Yasemin Dietrich Call lab results to: My clinical findings support the need for the services listed above because: Increased SOB Further, I certify that my clinical findings support that this patient is homebound (i.e. absences from home require considerable and taxing effort and are for medical reasons or protestant services or infrequently or of short duration when for other reasons) because: Requires a taxing efort to leave home as evidenced by: extreme SOB, I understand and acknowledge that this is not a valid order until it is authenticated by a medical provider who has authority within their Scope of Practice to do so. I am inputting this information in my capacity as a scribe. Juanpablo Hoff RN Follow instructions as indicated below: 1. The [...] Other discharge instructions: {DC IP DISCHARGE INSTRUCTIONS OTHER:45200} 14. Special Instructions: Take Home Medications These are medications ordered for you by your healthcare provider. Do not take any other medications or supplements unless advised by your healthcare provider. Current Discharge Medication List START taking these medications Details doxycycline hyclate 100 mg capsule Take 1 capsule by mouth 2 (two) times daily. Qty: 60 capsule, Refills: 0 Associated Diagnoses: COPD with acute exacerbation CONTINUE these medications which have CHANGED Details ALPRAZolam 0.5 mg tablet Take 1 tablet by mouth 2 (two) times daily as needed (anxiety). Qty: 28 tablet, Refills: 0 Associated Diagnoses: Anxiety about health CONTINUE these medications which have NOT CHANGED Details buPROPion XL (WELLBUTRIN XL) 150 mg 24 hr tablet Take 1 tablet by mouth daily. Qty: 60 tablet, Refills: 1 Associated Diagnoses: Tobacco abuse; Depression, unspecified depression type fluticasone furoate-vilanterol (BREO ELLIPTA) 200-25 mcg/dose DsDv Inhale 200 mcg daily. Qty: 30 Each, Refills: 3 Associated Diagnoses: Pulmonary emphysema, unspecified emphysema type; Chronic obstructive pulmonary disease, unspecified COPD type ipratropium 0.02 % nebulizer solution Inhale 2.5 mL every 6 (six) hours as needed for Wheezing or Shortness of Breath. Qty: 30 Vial, Refills: 2 Associated Diagnoses: COPD exacerbation levalbuterol 0.63 mg/3 mL nebulizer solution Inhale 0.63 mg every 6 (six) hours as needed for Wheezing or Shortness of Breath. Qty: 30 Vial, Refills: 2 Associated Diagnoses: COPD exacerbation sodium chloride 0.9 % nebulizer solution Use 3 mL as directed every 6 (six) hours as needed for Wheezing (cough/congestion). Qty: 100 Vial, Refills: 10 Associated Diagnoses: Chronic obstructive pulmonary disease, unspecified COPD type furosemide 20 mg tablet Take 1 tablet by mouth daily for 30 days. Qty: 30 tablet, Refills: 2 Associated Diagnoses: Acute on chronic diastolic congestive heart failure predniSONE 10 mg tablet Take 40 mg po qd x 3d, then 30 mg qd x 3d, 20 mg qd x 3d, 10 mg qd x 3d, 5 mg qd x 3d Qty: 32 tablet, Refills: 0 Associated Diagnoses: SOB (shortness of breath); Tobacco use disorder, continuous calcium-vitamin D 500 mg(1,250mg) -200 unit per tablet Take 1 tablet by mouth daily. Qty: 30 tablet, Refills: 2 Follow-up appointments: Your follow up appointment with your surgeon has been made. Appointment Date: , Appointment Time . For questions regarding follow-up instructions call the [facility] Hotline at or If you experience any of the following symptoms , please follow up with . For worsening symptoms/changing condition/problems or questions: Non-emergency/urgent: Call the [facility] Hotline at or or Emergency: Go to the closest emergency room or call [phone] Translated by Date Time If you receive [...] information on smoking and how to quit. [employer], http://www.lungusa.org/stop-smoking/ [employer], http://www.cancer.org/Healthy/StayAwayfromTobacco/index [employer] [employer], http://www.heart.org/HEARTORG/GettingHealthy/QuitSmoking/Quit-Smoking_[facility] _001085_SubHomePage.jsp [facility] RETURN TO WORK / SCHOOL EXCUSE Mariana Turner WAS SEEN IN THE ER AND DISCHARGED 03/04/2020 TODAY, 5:37 PM & May return to Work / School / Incarceration on X with activity as tolerated indicated below. ___The following limitations apply until pt is seen by Physician and cleared to return to normal activity. _X_ Off for two days and return to activity as tolerated at work or school ___ No Sports ___ No work ___ Do not return until fever free for 24 hours. ___ No school BIANKA HERNANDEZ Jr., MD [facility] EMERGENCY DEPRTMENT [address] [place] [address] [place] [address] ### The patient may have been given Narcotic pain medications during their stay in the ED that may show up on a Drug Screen. The hospital discharge paper work will identify these medications. AttachmentsThe following attachments cannot be sent through Care Everywhere. Hyponatremia, Discharge Instructions (Dominican)COPD: Chronic Coughing (Dominican) Doxycycline tablets or capsules (Dominican)Alprazolam tablets (Dominican)documented in this encounter Progress Notes Juanpablo Hoff RN - 03/07/2020 1:00 PM CDT Care Management Discharge Disposition Note (DCDN) 5-2-1 Interventions: Clear discharge plan;Home visit/home health referral 5-2-1 Providers: Supervisor Soldering/Mat Puncher 5-2-1 Patient Capacity Improvements: Avoidance of adverse events/readmission Discharge Plan for ongoing care and services: Durable Medical Equipment;Home Health (HH) Is this a new referral: No, return to previous provider Patient Choice completed for referred services: Return to previous provider DME location: Other Other DME location: [employer] Durable Medical Equipment: Other(Vest Therapy) Home Health location: [address] (Ph) [phone] (F) [phone] Discharge location(s): Home Health location: [facility] [address] (Ph) [phone] (F) [phone] DME location: Other Other DME location: [facility] Patient choice completed for referred services: Return to previous provider Discussed with patient/patients family involved in decision making: Yes Patient or family caregiver understands, and agrees with discharge plan. Community resources/referrals made or provided to patient: No Resources/Referrals: Transportation: Private Vehicle Mental Status: Alert & Oriented to Person,Place & Time Living Arrangement: Home Other living arrangement: Address of living arrangement: [address] [place] [address] [address] [place] Funding Resources: Medicare Replacement Nursing informed of discharge plan: Yes Name of RN informed: [facility] Expected discharge date: 03/07/2020 Time: Morning [10] Additional Information: CM/DEBORAH Name & Contact number: Juanpablo Hoff RN Ph. Juanpablo Hoff RN, BSN [facility] Supervisor Soldering O [phone] F [phone] The following information has been provided to the facility noted above: reason for the patient discharge or transfer; patients physical and psychosocial status; summary of care, treatment, servicesprovided to patient; and the patient progress toward goals. Mario Dean MD - 03/07/2020 12:46 PM CDTPatient has had five COPD exacerbations in the last 6 months requiring antibiotic therapy on the following dates: 10/05/2019, 01/29/2020, 02/09/2020, 02/24/2020, 03/04/2020). Considered and ruled out manual CPT as no consistent skilled caregiver available to perform therapy. CT scan performed on 02/09/2020 confirms bronchiectasis. Starting patient on vest therapy. Juanpablo Barber RN - 03/07/2020 12:29 PM CDTCare Management Social Functional Assessment Patient Name: Mariana Turner Age: [age] year old Sex: female Patient's Previous Admission Date at [facility]: 02/24/2020 Current diagnosis and co-morbidities: Acute on Chronic Respitory Failure Readmission Questions: Was patient discharged from any acute care hospital within the last 30 days: No Social Functional Assessment: Primary language spoken/preferred: Dominican Mental Status: Alert & Oriented to Person,Place & Time Information given by: Self Patient's support system: Other Name and number of support system: Charlotte Martinez friend [phone] Primary Enrollment Representative: Self MPOA: Same as support system Living Arrangement: Mobile Home Address of living arrangement : [address] [place] [address] [address] [place] Persons living in home: Self Barriers to [...] a PCP?: Yes Name of PCP: [facility] Agency: Yes Name of Home Health Agency: [address] () [phone] (F) [phone] Previous or current Home Health Care Agency: Current Provider Services: No DME Company: Yes Name of DME company: [facility] [address], [place] [address] (Ph) [phone] (F) [phone] Previous or current DME company: Current Equipment: O2: LPM;O2:Portable tank available;[facility] Hemodialysis: No Community resources utilized: [facility] Funding Resources: Commercial Prescription coverage plan: [facility] meds are filled: Other Other pharmacy: [facility] Anticipated services prior to disharge: Continue Medical Eval Expected mode of discharge transportation: Same as support system Additional info required for discharge planning: Pending medical evaluation Recommended discharge plan: Update/Resume HH orders SFA Complete: Social Functional Assessment complete: Yes Alcohol Use Screening (AUDIT-C) How often do you have a drink containing alcohol?: Never SCORE: 0 Role of Care Management explained. Yes Any issues or concerns with obtaining/affording your medications at home: no. Are you or your support system able to pickling drum operator medications at discharge: yes. Describe: Juanpablo Hoff RN, BSN [facility] Supervisor Soldering O [phone] F [phone] . Juanpablo Barber RN - 03/07/2020 12:24 PM [facility] order faxed over to [facility] for resumption of care. AL Melendez RNN [facility] Supervisor Soldering O [phone] F [phone] Christiano Vasquez DO - 03/07/2020 11:23 AM CDT Nephrology Progress Note Admit Date: 03/04/2020 CPS stable without CP or SOB. No acute events overnight. Feeling better today. Temp: [36.1 C (97 F)-37 C (98.6 F)] Heart Rate (monitor): [68] Pulse: [71-107] Resp: [20] BP: (111-147)/(70-86) MAP (mmHg): [88-95] Vitals and medications reviewed in the chart. Blood work and imaging reviewed in the chart. Gen: NAD HEENT: NCAT. MMM. Neck: Supple. No LAD. Lungs: Minimal basilar rales CVS: RRR Abd: Soft. NT. +BS Ext: No C/C. LE Edema none. Skin: No rash Psych: AAO Neuro: Normal speech ASSESSMENT/PLAN Mariana Turner is a 65 year old female admitted to the hospital with: The primary encounter diagnosis was Dyspnea, unspecified type. Diagnoses of Hyponatremia, Acute on chronic respiratory failure with hypoxia and hypercapnia, Hypercarbia, COPD with acute exacerbation, SOB (shortness of breath), Tobacco use disorder, continuous, and Anxiety about health were also pertinent to this visit. A/ Hyponatremia Alkalosis Diastolic CHF, chronic. Hypoxic Respiratory Failure, A/C in the setting of COPD/ Emphysema. Nicotine dependence P/ Continue current POC and Medications other than the changes below. Continue Lasix. Continue abx. Wean prednisone as tolerated. Encourage nutrition. No NSAIDs. AM labs. Daily weight. 03/07/20 0500 Weight: 59 kg (130 lb) Height: Vitals: 03/07/20 0752 03/07/20 1106 03/07/20 1115 03/07/20 1124 BP: 137/86 120/75 BP Location: Left arm Patient Position: Sitting Pulse: 75 107 Resp: Temp: 36.1 C (97 F) 36.5 C (97.7 F) TempSrc: Temporal Artery Temporal Artery SpO2: 98% 94% 98% 90% Weight: Height: Intake/Output Summary (Last 24 hours) at 03/07/2020 1124 Last data filed at 03/07/2020 0752 Gross per 24 hour Intake 400 ml Output Net 400 ml Hospital Encounter on 03/04/20 XR CHEST 1 VW Narrative XR CHEST 1 VW HISTORY: dyspnea COMPARISON: X-ray dated 01/29/2020 Technique: AP view of the chest. Impression FINDINGS/IMPRESSION: Hyperinflated lungs with flattening of bilateral hemidiaphragms and upper lung predominant emphysematous changes. Left lower lobe subsegmental atelectasis/scarring, unchanged is noted. The lungs are otherwise clear. No pleural effusion or pneumothorax is seen. The heart is normal in size. Surgical clips project over the right chest wall and over the mediastinum. Preliminary Report Dictated by Resident: Mary Wall I, Moo Stewart MD., have reviewed this study and agree with the above report. Recent Results (from the past 48 hour(s)) CORTISOL AM Collection Time: 03/05/20 12:53 PM Result Value Ref Range THEA AM 10.0 4.5 - 23.0 ug/dL BASIC METABOLIC PANEL (NA, K, CL, CO2, GLUCOSE, BUN, CREATININE, CA) Collection Time: 03/05/20 12:54 PM Result Value Ref Range NA 133 (L) 135 - 145 mmol/L K 4.8 3.5 - 5.0 mmol/L CL 90 (L) 98 - 108 mmol/L CO2 TOTAL 40 (H) 23 - 31 mmol/L AGAP 3 2 - 16 BUN 15 7 - 23 mg/dL GLUCOSE 211 (H) 70 - 110 mg/dL CREATININE 0.47 (L) 0.50 - 1.04 mg/dL CALCIUM 8.6 8.6 - 10.6 mg/dL eGFR Calculation (Non-) 133.8 mL/min/1.73m2 eGFR Calculation () 162.2 mL/min/1.73m2 Current Facility-Administered Medications Medication Dose Route Frequency Last Rate Last Dose doxycycline hyclate (Vibramycin) capsule 100 mg 100 mg Oral BID 100 mg at 03/07/20 0831 nicotine (NICODERM) 14 mg/24 hr patch 1 Patch 1 Patch Topical ONCE 1 Patch at 03/06/202105 ALPRAZolam (XANAX) tablet 0.5 mg 0.5 mg Oral BIDPRN 0.5 mg at 03/06/20 2255 budesonide (PULMICORT RESPULE) nebulizer solution 0.25 mg 0.25 mg Inhalation BID 0.5 mg at 03/07/20 0708 buPROPion XL (WELLBUTRIN XL) tablet 150 mg 150 mg Oral DAILY 150 mg at 03/07/20 0831 furosemide (LASIX) tablet 20 mg 20 mg Oral DAILY 20 mg at 03/07/20 0831 ipratropium-albuterol (DUONEB) 0.5 mg-3 mg(2.5 mg base)/3 mL nebulizer solution 3 mL 3 mL Inhalation Q4H 3 mL at 03/07/20 1105 levalbuterol (XOPENEX) nebulizer solution 0.63 mg 0.63 mg Inhalation Q2HPRN predniSONE (DELTASONE) tablet 40 mg 40 mg Oral DAILY 40 mg at 03/07/20 0831 sodium chloride 7% (HYPER-MEDARDO) nebulizer solution 4 mL 4 mL Inhalation BID 4 mL at 03/07/20 0708 dextrose 50 % in water (D50W) injection 25 mL 25 mL Slow IV Push PRN enoxaparin (LOVENOX) injection 30 mg 30 mg Subcutaneous DAILY 30 mg at 03/07/20 0831 glucagon (GLUCAGEN DIAGNOSTIC KIT) injection 1 mg 1 mg Intramuscular PRN Juanpablo Barber, RN - 03/07/2020 10:25 AM CDTOrder for Vest Therapy faxed over to [employer]. DME to be delivered to patient's home. Juanpablo Hoff RN, BSN [facility] Supervisor Soldering O [phone] Mario Dean MD - 03/06/2020 1:37 PM CDT [facility] Hospitalist Progress Note SUBJECTIVE: Feels much better today. CURRENT MEDICATIONS - reviewed. Current Facility-Administered Medications Medication Dose Route Frequency Last Rate Last Dose ALPRAZolam (XANAX) tablet 0.5 mg 0.5 mg Oral BIDPRN 0.5 mg at 03/06/20 0757 budesonide (PULMICORT RESPULE) nebulizer solution 0.25 mg 0.25 mg Inhalation BID 0.25 mg at 03/06/20 0731 buPROPion XL (WELLBUTRIN XL) tablet 150 mg 150 mg Oral DAILY 150 mg at 03/06/20 0904 furosemide (LASIX) tablet 20 mg 20 mg Oral DAILY 20 mg at 03/06/20 0904 ipratropium-albuterol (DUONEB) 0.5 mg-3 mg(2.5 mg base)/3 mL nebulizer solution 3 mL 3 mL Inhalation Q4H 3 mL at 03/06/20 1103 levalbuterol (XOPENEX) nebulizer solution 0.63 mg 0.63 mg Inhalation Q2HPRN predniSONE (DELTASONE) tablet 40 mg 40 mg Oral DAILY 40 mg at 03/06/20 0904 sodium chloride 7% (HYPER-MEDARDO) nebulizer solution 4 mL 4 mL Inhalation BID 4 mL at 03/06/20 0731 dextrose 50 % in water (D50W) injection 25 mL 25 mL Slow IV Push PRN enoxaparin (LOVENOX) injection 30 mg 30 mg Subcutaneous DAILY 30 mg at 03/06/20 0904 glucagon (GLUCAGEN DIAGNOSTIC KIT) injection 1 mg 1 mg Intramuscular PRN PHYSICAL EXAM: BP 99/71 (BP Location: Left arm) | Pulse 93 | Temp 37.1 C (98.7 F) (Temporal Artery) | Resp 16 | Ht 5' 2" (1.575 m) | Wt 130 lb (59 kg) | SpO2 100% | BMI 23.78 kg/m General: No respiratory distress Musculoskeletal: Normal muscle mass, no synovitis Skin: No rash or lesions Neuro: AAOx3, no focal deficits Psych: Normal affect LABS/IMAGING - reviewed, pertinent results as below: CBC BMP PT/INR WBC x10^3 (/uL) Date Value 01/12/2013 6.3 WBC (10*3/L) Date Value 03/04/2020 10.85 NA Date Value 03/05/2020 133 mmol/L (L) 01/12/2013 139 MMOL/L No results found for: PT RBC x10^6 (/uL) Date Value 01/12/2013 5.17 RBC (10*6/L) Date Value 03/04/2020 4.45 K Date Value 03/05/2020 4.8 mmol/L 01/12/2013 4.5 MMOL/L INR (no units) Date Value 03/04/2020 0.9 PLT x10^3 (/uL) Date Value 01/12/2013 239 PLT (10*3/L) Date Value 03/04/2020 275 CALCIUM Date Value 03/05/2020 8.6 mg/dL 01/12/2013 9.5 MG/DL HGB Date Value 03/04/2020 14.4 g/dL 01/12/2013 16.5 G/DL (H) CL Date Value 03/05/2020 90 mmol/L (L) 01/12/2013 103 MMOL/L aPTT HCT (%) Date Value 03/04/2020 43.6 01/12/2013 47.3 (H) BUN Date Value 03/05/2020 15 mg/dL 01/12/2013 15 MG/DL APTT Patient (Seconds) Date Value 03/04/2020 24 CREATININE Date Value 03/05/2020 0.47 mg/dL (L) 01/12/2013 0.65 MG/DL IMAGING- Hospital Encounter on 03/04/20 XR CHEST 1 VW Narrative XR CHEST 1 VW HISTORY: dyspnea COMPARISON: X-ray dated 01/29/2020 Technique: AP view of the chest. Impression FINDINGS/IMPRESSION: Hyperinflated lungs with flattening of bilateral hemidiaphragms and upper lung predominant emphysematous changes. Left lower lobe subsegmental atelectasis/scarring, unchanged is noted. The lungs are otherwise clear. No pleural effusion or pneumothorax is seen. The heart is normal in size. Surgical clips project over the right chest wall and over the mediastinum. Preliminary Report Dictated by Resident: Mary Wall I, Moo Stewart MD., have reviewed this study and agree with the above report. ASSESSMENT/PLAN Mariana Turner is a 65 year old female with PMH as listed above, admitted to the hospital with: Acute on chronic hypoxic and hypercapnic respiratory failure 2/2 AECOPD Hx stage 4 COPD. Recently admitted for same, discharged 02/25. Patient continues to smoke likely causing recurrent hospitalization. Improved with bipap then transitioned to NC Scheduled nebs, hypersal, metaneb, prednisone COVID19 rapid screen neg. Recent PCR and respiratory panel negative. Declined inpatient rehab Needs outpatient pulmonary rehab, sleep study (referrals placed) Chronic smoker Was counseled on cessation on admission Nicotine patch Prophylaxis: DVT- enoxaparin Stress Ulcer: no indication for prophylaxis Code Status: Full Disposition: Home when clinically improved [place] COUNTER [employer]ER was verified during stay Mario Sheikh MD Mario Dean MD - 03/05/2020 4:25 PM CDT [facility] Hospitalist Progress Note SUBJECTIVE: Feels much better today. CURRENT MEDICATIONS - reviewed. Current Facility-Administered Medications Medication Dose Route Frequency Last Rate Last Dose budesonide (PULMICORT RESPULE) nebulizer solution 0.25 mg 0.25 mg Inhalation BID 0.25 mg at 03/05/20 0758 ipratropium-albuterol (DUONEB) 0.5 mg-3 mg(2.5 mg base)/3 mL nebulizer solution 3 mL 3 mL Inhalation Q4H 3 mL at 03/05/20 1542 levalbuterol (XOPENEX) nebulizer solution 0.63 mg 0.63 mg Inhalation Q2HPRN NaCl 0.9% (NS) IV infusion 1,000 mL 1,000 mL IV Infusion CONTINUOUS sodium chloride 7% (HYPER-MEDARDO) nebulizer solution 4 mL 4 mL Inhalation BID 4 mL at 03/05/20 1240 dextrose 50 % in water (D50W) injection 25 mL 25 mL Slow IV Push PRN enoxaparin (LOVENOX) injection 30 mg 30 mg Subcutaneous DAILY 30 mg at 03/05/20 0804 glucagon (GLUCAGEN DIAGNOSTIC KIT) injection 1 mg 1 mg Intramuscular PRN methylprednisolone sod succ (SOLU-MEDROL) injection 60 mg 60 mg Slow IV Push Q6H 60 mg at 03/05/20 1149 nicotine (NICODERM) 14 mg/24 hr patch 1 Patch 1 Patch Topical ONCE 1 Patch at 03/04/20 2150 PHYSICAL EXAM: BP 126/71 | Pulse 92 | Temp 37 C (98.6 F) | Resp 13 | Ht 5' 2" (1.575 m) | Wt 125 lb 9.6 oz(57 kg) | SpO2 94% | BMI 22.97 kg/m General: No respiratory distress Musculoskeletal: Normal muscle mass, no synovitis Skin: No rash or lesions Neuro: AAOx3, no focal deficits Psych: Normal affect LABS/IMAGING - reviewed, pertinent results as below: CBC BMP PT/INR WBC x10^3 (/uL) Date Value 01/12/2013 6.3 WBC (10*3/L) Date Value 03/04/2020 10.85 NA Date Value 03/05/2020 133 mmol/L (L) 01/12/2013 139 MMOL/L No results found for: PT RBC x10^6 (/uL) Date Value 01/12/2013 5.17 RBC (10*6/L) Date Value 03/04/2020 4.45 K Date Value 03/05/2020 4.8 mmol/L 01/12/2013 4.5 MMOL/L INR (no units) Date Value 03/04/2020 0.9 PLT x10^3 (/uL) Date Value 01/12/2013 239 PLT (10*3/L) Date Value 03/04/2020 275 CALCIUM Date Value 03/05/2020 8.6 mg/dL 01/12/2013 9.5 MG/DL HGB Date Value 03/04/2020 14.4 g/dL 01/12/2013 16.5 G/DL (H) CL Date Value 03/05/2020 90 mmol/L (L) 01/12/2013 103 MMOL/L aPTT HCT (%) Date Value 03/04/2020 43.6 01/12/2013 47.3 (H) BUN Date Value 03/05/2020 15 mg/dL 01/12/2013 15 MG/DL APTT Patient (Seconds) Date Value 03/04/2020 24 CREATININE Date Value 03/05/2020 0.47 mg/dL (L) 01/12/2013 0.65 MG/DL IMAGING- Hospital Encounter on 03/04/20 XR CHEST 1 VW Narrative XR CHEST 1 VW HISTORY: dyspnea COMPARISON: X-ray dated 01/29/2020 Technique: AP view of the chest. Impression FINDINGS/IMPRESSION: Hyperinflated lungs with flattening of bilateral hemidiaphragms and upper lung predominant emphysematous changes. Left lower lobe subsegmental atelectasis/scarring, unchanged is noted. The lungs are otherwise clear. No pleural effusion or pneumothorax is seen. The heart is normal in size. Surgical clips project over the right chest wall and over the mediastinum. Preliminary Report Dictated by Resident: Mary Wall I, Moo Stewart MD., have reviewed this study and agree with the above report. ASSESSMENT/PLAN Mariana Turner is a 65 year old female with PMH as listed above, admitted to the hospital with: Acute on chronic hypoxic and hypercapnic respiratory failure 2/2 AECOPD Hx stage 4 COPD. Recently admitted for same, discharged 02/25. Patient continues to smoke likely causing recurrent hospitalization. Improved with bipap, transition to NC today Scheduled nebs, hypersal, metaneb, solumedrol COVID19 rapid screen neg. Recent PCR and respiratory panel negative. Declined inpatient rehab Needs outpatient pulmonary rehab, sleep study (referrals placed) Chronic smoker Was counseled on cessation on admission Nicotine patch Prophylaxis: DVT- enoxaparin Stress Ulcer: no indication for prophylaxis Code Status: Full Disposition: Home when clinically improved [place] COUNTER CASER was verified during stay Mario Sheikh MD documented in this encounter Plan of Treatment Date Type Specialty Care Team Description 03/11/2020 Office Visit Cardiology Saray Almaguer MD [address] [address] [place] [phone] 03/25/2020 Office Visit Pulmonary Disease Bronwyn Don, [address] [place] [address] 03/29/2020 Office Visit Family Medicine Shanae Dietrich MD [address] [phone] 05/06/2020 Office Visit Pulmonary Disease Bronwyn Don, [address] [place] [address] Name Type Priority Associated Diagnoses Order S chedule SLEEP STUDY, ATTENDED PROCEDURES Routine COPD with acute Ord ered: 03/05/2020 exacerbation Health Maintenance Due Date Last Done Comments [...] Procedure Name Priority Date/Time Associated Comments Diagnosis BASIC METABOLIC PANEL Routine 03/05/2020 12:54 Re sults for this (NA, K, CL, CO2, PM CDT procedure a re in GLUCOSE, BUN, the results CREATININE, CA) section. CORTISOL AM Routine 03/05/2020 12:53 Results for this PM CDT procedure are i n the results section. ACUTE CARE ARTERIAL Routine 03/05/2020 8:49 Resu lts for this BLOOD GAS AM CDT procedure are i n the results section. TROPONIN I Routine 03/05/2020 4:55 Results for this AM CDT procedure are i n the results section. ACUTE CARE ARTERIAL Routine 03/05/2020 2:30 Resu lts for this BLOOD GAS AM CDT procedure are i n the results section. PROCALCITONIN Routine 03/05/2020 12:50 Results fo r this AM CDT procedure are i n the results section. FREE T3 Add-on 03/05/2020 12:50 Results for this AM CDT procedure are i n the results section. THYROID STIMULATING Routine 03/05/2020 12:50 Resu lts for this HORMONE AM CDT procedure are i n the results section. FREE T4 Add-on 03/05/2020 12:50 Results for this AM CDT procedure are i n the results section. TROPONIN I Routine 03/05/2020 12:50 Results for this AM CDT procedure are i n the results section. ACUTE CARE ARTERIAL Routine 03/04/2020 8:34 Resu lts for this BLOOD GAS PM CDT procedure are i n the results section. CRITICAL CARE Routine 03/04/2020 6:14 Results fo r this PM CDT procedure are i n the results section. ADC / LCC - DRUG STAT 03/04/2020 6:09 Dyspnea, Results for this SCREEN TRIAGE PM CDT unspecified type procedure are in Hyponatremia the results section. AC PANEL 20 + LACTIC STAT 03/04/2020 6:05 Dyspnea, Res ults for this ACID PM CDT unspecified type procedure are in Hyponatremia the results section. POCT GLUCOSE Routine 03/04/2020 5:57 Results for this (AUTOMATED) PM CDT procedure are i n the results section. EKG-12 LEAD Routine 03/04/2020 4:23 PM CDT XR CHEST 1 VW STAT 03/04/2020 4:23 Dyspnea, Results fo r this PM CDT unspecified type procedure a re in the results section. COVID-19 (ID NOW RAPID STAT 03/04/2020 4:15 Dyspnea, R esults for this TESTING) PM CDT unspecified type procedure a re in the results section. CBC WITH DIFFERENTIAL STAT 03/04/2020 4:11 Dyspnea, Re sults for this PM CDT unspecified type procedure a re in the results section. N-TERMINAL PRO-BNP STAT 03/04/2020 4:11 Dyspnea, Resul ts for this PM CDT unspecified type procedure a re in the results section. ACTIVATED PARTIAL STAT 03/04/2020 4:11 Dyspnea, Result s for this THRMPLAS LO PM CDT unspecified type procedure a re in the results section. PROTHROMBIN TIME / INR STAT 03/04/2020 4:11 Dyspnea, R esults for this PM CDT unspecified type procedure a re in the results section. CBC WITH DIFFERENTIAL STAT 03/04/2020 4:11 Dyspnea, Re sults for this PM CDT unspecified type procedure a re in the results section. BASIC METABOLIC PANEL STAT 03/04/2020 4:11 Dyspnea, Re sults for this (NA, K, CL, CO2, PM CDT unspecified type procedu re are in GLUCOSE, BUN, the results CREATININE, CA) section. HEPATIC FUNCTION PANEL STAT 03/04/2020 4:11 Dyspnea, R esults for this (90313) PM CDT unspecified type procedure a re in (ALB,T.PRO,BILI the results T,BU/BC,ALT,AST,ALK section. PHOS) TROPONIN I STAT 03/04/2020 4:11 Dyspnea, Results for this PM CDT unspecified type procedure a re in the results section. EKG-12 LEAD STAT 03/04/2020 4:03 PM CDT documented in this encounter Results BASIC METABOLIC PANEL (NA, K, CL, CO2, GLUCOSE, BUN, CREATININE, CA) (03/05/2020 12:54 PM CDT) NA 133 (L) 135 - [address] [facility] mmol/L [facility] K 4.8 3.5 - 5.[address] [facility] mmol/L [facility] CL 90 (L) 98 - 108 mmol/L [facility] CO2 TOTAL 40 (H) 23 - 31 mmol/L [facility] AGAP 3 2 - 16 [facility] BUN 15 7 - 23 mg/dL [facility] GLUCOSE 211 (H) 70 - 110 mg/dL [facility] CREATININE 0.47 (L) 0.50 - 1.[address] [facility] mg/dL [facility] CALCIUM 8.6 8.6 - 10.[address] [facility] mg/dL [facility] eGFR Calculation 133.8 mL/min/1.73m2 [facility] ([facility] LABORATORY Somali) eGFR Calculation 162.2 mL/min/1.73m2 [facility] LAB[facility] Specimen Blood - ARM, LEFT Narrative Performed At Association of Glomerular Filtration Rate (GFR) [facility] and Staging of Kidney Disease* [...] tests). Performing Organization Address City/State/Zipcode Phone Number [facility] CLIA: [id number], [address] [place], [place] [address] CORTISOL AM (03/05/2020 12:53 PM CDT) Pathologist Sig nature THEA AM 10.0 4.5 - 23.0 ug/dL [facility] Specimen Blood - ARM, LEFT Narrative Performed At Biotin has been reported to cause a positive bias, int erpret [facility] results relative to patient's use of biotin. Performing Organization Address City/State/Zipcode Phone Number [facility] CLIA: [id number], [address] [place], [place] [address] [facility] Acute Care Arterial Blood Gas. (03/05/2020 8:49 AM CDT) Pathologist Sig nature PH 7.35 7.35 - 7.45 [facility] PCO2 77 (H) 35 - 45 mmHg [facility] PO2 73 (L) 80 - 100 mmHg [facility] HCO3 42 (H) 22 - 26 mEq/L [facility] BE 12.3 (H) -3.0 - 3.0 mEq/L [facility] L [facility] Specimen Blood - WRIST, RIGHT Performing Organization Address [facility] Phone Number [facility] CLIA: [id number], [address] [place] [address] Troponin I (03/05/2020 4:55 AM CDT) Pathologist Sig nature TROPONIN I <0.012 <=0.034 ng/mL [facility] Specimen Blood - ARM, LEFT Narrative Performed At Equal or Less than 0.034 ng/ml---Normal [facility] Note: Cardiac troponin begins to [...] patient's use of biotin. Performing Organization Address [facility] Phone Number [facility] CLIA: [id number], [address] [place] [address] [address] [facility] Acute Care Arterial Blood Gas. (03/05/2020 2:30 AM CDT) [facility] nature PH 7.34 (L) 7.35 - 7.45 [facility] PCO2 76 (H) 35 - 45 mmHg [facility] PO2 75 (L) 80 - 100 mmHg [facility] HCO3 40 (H) 22 - 26 mEq/L [facility] BE 10.8 (H) -3.0 - 3.0 mEq/L [facility] L [facility] Specimen Blood Performing Organization Address [facility] Centercode Phone Number [facility] CLIA: [id number], [address] [place], [place] [address] FREE T4 (03/05/2020 12:50 AM CDT) Pathologist Sig nature FREE T4 1.11 0.78 - 2.20 ng/dL: [facility] ES Specimen Blood - ARM, LEFT Performing Organization Address City/[facility]/Zipcode Phone Number [facility] CLIA: [id number], [address] [place], [place] [address] [facility] FREE T3 (03/05/2020 12:50 AM CDT) Pathologist Sig nature FREE T3 3.87 2.77 - 5.27 pg/mL [facility] Specimen Blood - ARM, LEFT Performing Organization Address City/[facility]/Zipcode Phone Number [facility] CLIA: [id number], [address] [place], [place] [address] THYROID STIMULATING HORMONE (03/05/2020 12:50 AM CDT) Pathologist Sig nature TSH 0.23 (L) 0.45 - 4.70 mIU/L [facility] Specimen Blood - ARM, LEFT Performing Organization Address [facility] Phone Number [facility] CLIA: [id number], [address] [place], [place] [address] Troponin I (03/05/2020 12:50 AM CDT) Pathologist Sig [facility] TROPONIN I <0.012 <=0.034 ng/mL [facility] Specimen Blood - ARM, LEFT Narrative Performed At Equal or Less than 0.034 ng/ml---Normal [facility] Note: Cardiac troponin begins to [...] biotin. Performing Organization Address City/State/Zipcode Phone Number [facility] CLIA: [id number], [address] [place], [place] [address] PROCALCITONIN (03/05/2020 12:50 AM CDT) Pathologist Jorgito stark Procalcitonin 0.02 <0.07 ng/mL [facility] Specimen Blood - ARM, LEFT Narrative Performed At INTERPRETATION OF PROCALCITONIN RESULTS IN ADULTS >= 1 8 [facility] YEARS OF AGE [...] abscess/empyema. For further information please refer to: [email or web address] Performing Organization Address City/[facility]/Zipcode Phone Number [facility] CLIA: [id number], [address] [place], [place] [address] [facility] Acute Care Arterial Blood Gas. (03/04/2020 8:34 PM CDT) Natasha stark PH 7.34 (L) 7.35 - 7.45 [facility] PCO2 78 (H) 35 - 45 mmHg [facility] PO2 66 (L) 80 - 100 mmHg [facility] HCO3 41 (H) 22 - 26 mEq/L [facility] BE 11.9 (H) -3.0 - 3.0 mEq/L [facility] Specimen Blood - ARM, LEFT Performing Organization Address City/[facility] Phone Number [facility] CLIA: [id number], [address], [place] [address] Critical Care (03/04/2020 6:14 PM CDT) Narrative Performed At Bianka Hernandez MD 03/04/2020 6: 14 PM Critical Care Performed by: Bianka Hernandez MD Authorized by: Bianka Hernandez MD Critical care provider statement: Critical care time (minutes): 45 Critical care was necessary to treat or prevent imminent or life-threatening deterioration of the following condit ions: Respiratory failure Critical care was time spent personal ly by me on the following activities: Ordering and performing tr eatments and interventions, ordering and review of laboratory studie s, ordering and review of radiographic studies, pulse oximetry, re -evaluation of patient's condition, blood draw for specimens, dev elopment of treatment plan with patient or surrogate, discussions with c onsultants, discussions with primary provider and examination of patient ADC / LCC - DRUG SCREEN TRIAGE (03/04/2020 6:09 PM CDT) BENZO U Presumptive Negative [facility] Positive (A) H[facility] FLORINA U Negative Negative [facility] AMPHET Negative Negative [facility] THC Negative Negative [facility] METHADONE Negative Negative [facility] Meth U Negative Negative [facility] OPIATES Negative Negative [facility] Cocaine Metabolite Negative Negative [facility] PROPOXY Negative Negative [facility] Tric U Negative Negative [facility] PCP Negative Negative [facility] OXYCOD Negative Negative [facility] Specimen Urine - URINE, CATHETERIZED Narrative Performed At Urine Drug Cutoff Ranges [facility] Benzodiazepines: 150 ng/mL Barbiturates: 200 ng/mL Amphetamine: 500 ng/mL Cannabinoids: 50 ng/mL Methadone: 200 ng/mL Methamphetamine: 500 ng/mL Opiates: 100 ng/mL or 2000 ng/mL Cocaine: 150 ng/mL Propoxyphene: 300 ng/mL Tricyclics: 300 ng/mL Oxycodone: 100 ng/mL PCP: 25 ng/mL The results are to be used only for medical (i.e., treatment) purposes. Unconfirmed screening results must not be used for non-medical purposes (e.g., employment testing, legal testing). Performing Organization Address City/State/Zipcode Phone Number [facility] CLIA: [id number], [address], [place] [address] AC PANEL 20 + LACTIC ACID (03/04/2020 6:05 PM CDT) Pathologist Sig nature PH 7.20 (L) 7.35 - 7.45 [facility] PCO2 123 (H) 35 - 45 mmHg [facility] PO2 72 (L) 80 - 100 mmHg [facility] HCO3 47 (H) 22 - 26 mEq/L [facility] BE 12.5 (H) -3.0 - 3.0 mEq/L [facility] THB 15.1 12.0 - 16.0 g/dL [facility] %O2HB 85.0 (L) 94.0 - 99.0 % [facility] %COHB ART 8.9 (H) 0.0 - 1.5 % [facility] %METHB ART 0.0 (L) 0.4 - 1.5 % [facility] VOL%O2 ART 18.1 15.0 - 23.0 % [facility] NA 131 (L) 135 - 145 mmol/L [facility] K+ 4.7 3.5 - 5.0 mmol/L [facility] AC CA IONZ 4.70 4.50 - 5.30 mg/dL [facility] GLUCOSE 130 (H) 70 - 110 mg/dL [facility] LACTIC ACID 1.05 0.50 - 2.20 mmol/L [facility] Specimen Blood - WRIST, LEFT Performing Organization Address [facility]/Zipcode Phone Number [facility] CLIA: [id number], [address], [place] [address] POCT GLUCOSE (AUTOMATED) (03/04/2020 5:57 PM CDT) Pathologist Sig nature POCT GLU 124 (H) 70 - 110 mg/dL [facility] Specimen Blood Performing Organization Address City/[facility] Phone Number [facility] CLIA: [id number], [address] [place], [place] [address] XR CHEST 1 VW (03/04/2020 4:23 PM CDT) Specimen Impressions Performed At FINDINGS/IMPRESSION: PACS/VR/DOSE Hyperinflated lungs with flattening of bilateral hemid iaphragms and upper lung predominant emphysematous changes. Left lower lobe subsegmental atelectasis/scarring, unc hanged is noted. The lungs are otherwise clear. No pleural effusion or pneumothorax is seen. The heart is normal in size. Surgical clips project over the right chest wall and o bianca the mediastinum. Preliminary Report Dictated by Resident: Mary Wall I, Moo Stewart MD., have review ed this study and agree with the above report. Narrative Performed At XR CHEST 1 VW PACS/VR/DOSE HISTORY: dyspnea COMPARISON: X-ray dated 01/29/2020 Technique: AP view of the chest. Procedure Note [facility], Radiant Results Inft User - 2019 12:22 PM CDT XR CHEST 1 VW HISTORY: dyspnea COMPARISON: X-ray dated 01/29/2020 Technique: AP view of the chest. IMPRESSION FINDINGS/IMPRESSION: Hyperinflated lungs with flattening of b ilateral hemidiaphragms and upper lung predominant emphysematous changes. Left lower lobe subsegmental atelectasis /scarring, unchanged is noted. The lungs are otherwise clear. No pleural effusion or pneumothorax is s een. The heart is normal in size. Surgical clips project over the right ch est wall and over the mediastinum. Preliminary Report Dictated by Resident: Mary Wall I, Moo Stewart MD., have reviewe d this study and agree with the above report. Performing Organization Address City/[facility]/Zipcode Phone Number PACS/VR/DOSE COVID-19 (ID NOW RAPID TESTING) (03/04/2020 4:15 PM CDT) SARS-CoV-2 Rapid ID Not Detected Not Detected [facility] Specimen Swab - NASOPHARYNGEAL SWAB Narrative Performed At [facility] NOW COVID-19 Assay is an isothermal nucleic [facility] acid amplification test intended for the qualitative detection of nucleic acid from SARS-CoV-2 viral RNA in nasopharyngeal (MEAT HANGER) specimens. It is used under Emergency Use [...] testing if clinically indicated. Performing Organization Address [facility]/Zipcode Phone Number [facility] CLIA: [id number], [address], [place] [address] CBC WITH DIFFERENTIAL (03/04/2020 4:11 PM CDT) Pathologist Sig nature WBC 10.85 4.30 - 11.[address] [facility] 10*3/L [facility] RBC 4.45 3.93 - 5.[address] [facility] 10*6/L [facility] HGB 14.4 11.6 - 15.[address] [facility] g/dL [facility] HCT 43.6 35.7 - 45.2 % [facility] MCV 98.0 (H) 80.6 - 95.5 fL [facility] MCH 32.4 25.9 - 32.8 pg [facility] MCHC 33.0 31.6 - 35.[address] [facility] g/dL [facility] RDW-SD 49.1 39.0 - 49.9 fL [facility] RDW-CV 13.6 12.0 - 15.5 % [facility] PLT 275 166 - [address] [facility] 10*3/L [facility] MPV 9.5 9.5 - 12.9 fL [facility] NRBC/100 WBC 0.0 0.0 - 10.0 /[address] [facility] WBCs [facility] NRBC x10^3 <0.01 10*3/L [facility] GRAN MAT (NEUT) % 62.3 % [facility] IMM GRAN % 0.60 % [facility] LYMPH % 22.7 % [facility] MONO % 13.3 % [facility] EOS % 0.7 % [facility] BASO % 0.4 % [facility] GRAN MAT x10^3(ANC) 6.76 1.88 - 7.[address] [facility] 10*3/uL [facility] IMM GRAN x10^3 0.07 (H) 0.00 - 0.[address] [facility] 10*3/uL [facility] LYMPH x10^3 2.46 1.32 - 3.[address] [facility] 10*3/uL [facility] MONO x10^3 1.44 (H) 0.33 - 0.[address] [facility] 10*3/uL [facility] EOS x10^3 0.08 0.03 - 0.[address] [facility] 10*3/uL [facility] BASO x10^3 0.04 0.01 - 0.[address] [facility] 10*3/uL [facility] Specimen Blood - VENOUS Performing Organization Address City/State/Zipcode Phone Number [facility] CLIA: [id number], [address], [place] [address] N-TERMINAL PRO-BNP (03/04/2020 4:11 PM CDT) Pathologist Sig nature NT-proBNP 316 (H) <=125 pg/mL [facility] Specimen Blood - VENOUS Narrative Performed At Biotin has been reported to cause a negative [facility] bias, interpret results relative to patient's use of biotin. Performing Organization Address City/[facility] Phone Number [facility] CLIA: [id number], [address], [place] [address] [address] Prothrombin Time (PT) / INR (03/04/2020 4:11 PM CDT) [facility] Signature PROTIME PATIENT 11.8 (L) 12.0 - 14.7 [facility] LABORATORY INR 0.9Comment: Normal [facility] INR <1.1; Warfarin [facility] Therapeutic range LABORATORY 2.0 to 3.0 or 2.5 to 3.5, depending upon the indications. Specimen Blood - VENOUS Performing Organization Address [facility] Cent[facility]ode Phone Number [facility] CLIA: [id number], [address] aPTT (03/04/2020 4:11 PM CDT) [facility] Sig nature APTT Patient 24 23 - 38 Seconds [facility] LABORATORY Specimen Blood - VENOUS Narrative Performed At [facility] patient population mean normal value [facility] LABORATORY for aPTT is 30 seconds. Performing Organization Address [facility]/Zipcode Phone Number [facility] CLIA: [id number], [address] [place], [place] [address] Troponin I (03/04/2020 4:11 PM CDT) Pathologist Sig nature TROPONIN I <0.012 <=0.034 ng/mL [facility] LABORATORY Specimen Blood - VENOUS Narrative Performed At Equal or Less than 0.034 ng/ml---Normal [facility] LABORATORY Note: Cardiac troponin begins to [...] patient's use of biotin. Performing Organization Address City/[facility]/Zipcode Phone Number [facility] CLIA: [id number], [address] Hepatic Function Panel (ALB, T.PRO, BILI T, BU/BC, ALT, AST, ALK PHOS) (03/04/2020 4:11 PM CDT) Pathologist Sig nature TOTAL BILI 0.7 0.1 - 1.1 mg/dL [facility] LABORATORY BILI UNCON 0.8 0.1 - 1.1 mg/dL [facility] LABOR[facility] BILI CONJ 0.0 0.0 - 0.3 mg/dL [facility] LAB[facility] T PROTEIN 7.2 6.3 - 8.2 g/dL [facility] ALBUMIN 4.2 3.5 - 5.0 g/dL [facility] LAB[facility] ALK PHOS 50 34 - 122 U/L [facility] LAB[facility] ALTv 39 (H) 5 - 35 U/L [facility] LAB[facility] AST(SGOT) 30 13 - 40 U/L [facility] LABOR[facility] Specimen Blood - VENOUS Performing Organization Address City/[facility]/Zipcode Phone Number [facility] CLIA: [id number], [address] Basic Metabolic Panel (NA, K, CL, CO2, GLUCOSE, BUN, CREATININE, CA) (03/04/2020 4:11 PM CDT) NA 127 (L) 135 - [address] [facility] mmol/L [facility] LABORATORY K 4.9 3.5 - 5.[address] [facility] mmol/L [facility] LABORATORY CL 82 (L) 98 - 108 mmol/L [facility] LABOR[facility] CO2 TOTAL 40 (H) 23 - 31 mmol/L [facility] LAB[facility] AGAP 5 2 - 16 [facility] LAB[facility] BUN 14 7 - 23 mg/dL [facility] GLUCOSE 98 70 - 110 mg/dL [facility] LABOR[facility] CREATININE 0.37 (L) 0.50 - 1.[address] [facility] mg/dL [facility] LABORATORY CALCIUM 8.8 8.6 - 10.[address] [facility] mg/dL [facility] LABORATORY eGFR Calculation 176.4 mL/min/1.73m2 [facility] ([facility] LABORATORY Somali) eGFR Calculation 213.8 mL/min/1.73m2 [facility] () [facility] LABORATORY Specimen Blood - VENOUS Narrative Performed At Association of Glomerular Filtration Rate (GFR) [facility] LABORATORY and Staging of Kidney Disease* + [...] tests). Performing Organization Address City/State/Zipcode Phone Number [facility] CLIA: [id number], [address] [place], [place] [address] documented in this encounter Visit Diagnoses Diagnosis Dyspnea, unspecified type - Primary Hyponatremia Hyposmolality and/or hyponatremia Acute on chronic respiratory failure wit h hypoxia and hypercapnia Hypercarbia Other dyspnea and respiratory abnormalit y COPD with acute exacerbation Obstructive chronic bronchitis with exac erbation Tobacco use disorder, continuous Tobacco use disorder Anxiety about health Acute on chronic respiratory failure Respiratory failure Acute respiratory failure documented in this encounter Administered Medications Medication Order MAR Action Action Date Dose Rate Site ALPRAZolam (XANAX) tablet 0.5 mg Given 03/06/2020 10:55 PM CDT 0.5 mg 0.5 mg, Oral, BIDPRN, Starting 03/05/20 at 1632, Until Discontinued, Routine, anxiety Given 03/06/2020 7:57 AM CDT 0.5 mg Given 03/05/2020 7:27 PM CDT 0.5 mg budesonide (PULMICORT RESPULE) nebulizer Given 03/07/2020 7:08 AM CDT 0.5 mg solution 0.25 mg 0.25 mg, Inhalation, BID, First dose on 03/05/20 at 0800, Until Discontinued, Routine, earth science faculty member approving Restricted medication: MEGADC Given 03/06/2020 7:03 PM CDT 0.25 mg Given 03/06/2020 7:31 AM CDT 0.25 mg buPROPion XL (WELLBUTRIN XL) tablet 150 mg Given 03/07/2020 8:31 AM CDT 150 mg 150 mg, Oral, DAILY, First dose on 03/06/20 at 0900, Until Discontinued, Routine Given 03/06/2020 9:04 AM CDT 150 mg doxycycline hyclate (Vibramycin) capsule 100 Given 8:31 AM CDT 100 mg mg 100 mg, Oral, BID, First dose on 03/06/20 at 1345, Until Discontinued, GRICEL, Reason for Anti-Infective: Empiric Therapy for Suspected Infection, Empiric Therapy Site: Respiratory, Duration of therapy: 72 hours Given 03/06/2020 9:07 PM CDT 100 mg Given 03/06/2020 2:01 PM CDT 100 mg enoxaparin (LOVENOX) injection 30 mg Given 03/07/2020 8:31 AM CDT 30 mg Abdo men-SC 30 mg, Subcutaneous, DAILY, First dose on 03/05/20 at 0900, Until Discontinued, Routine Given 03/06/2020 9:04 AM CDT 30 mg Abdo men-SC Given 03/05/2020 8:04 AM CDT 30 mg Abdo men-SC furosemide (LASIX) tablet 20 mg Given 03/07/2020 8:31 AM CDT 20 mg 20 mg, Oral, DAILY, First dose on 03/06/20 at 0900, Until Discontinued, Routine Given 03/06/2020 9:04 AM CDT 20 mg ipratropium-albuterol (DUONEB) 0.5 mg-3 mg(2.5 Given 0 03/07/2020 11:05 AM CDT 3 mL mg base)/3 mL nebulizer solution 3 mL 3 mL, Inhalation, Q4H, First dose on 03/05/20 at 0900, Until Discontinued, Routine Given 03/07/2020 7:08 AM CDT 3 mL Given 03/06/2020 10:40 PM CDT 3 mL levalbuterol (XOPENEX) nebulizer solutio n 0.63 mg 0.63 mg, Inhalation, Q2HPRN, Starting 03/05/20 at 0 900, Until Discontinued, Routine, Wheezing, Shortness of Breath, Approved by: A DC PROVIDER predniSONE (DELTASONE) tablet 40 mg Given 03/07/2020 8:31 AM CDT 40 mg 40 mg, Oral, DAILY, First dose on 03/06/20 at 0900, Until Discontinued, Routine Given 03/06/2020 9:04 AM CDT 40 mg sodium chloride 7% (HYPER-MEDARDO) nebulizer Given 03/07/2020 7:08 AM CDT 4 mL solution 4 mL 4 mL, Inhalation, BID, First dose on 03/05/20 at 0900, Until Discontinued, Routine Given 03/06/2020 7:02 PM CDT 4 mL Given 03/06/2020 7:31 AM CDT 4 mL Medication Order MAR Action Action Date Dose Rate Site budesonide (PULMICORT RESPULE) Given 03/04/2020 8:15 PM CDT 0.2 5 mg nebulizer solution 0.25 mg 0.25 mg, Inhalation, BID, First dose on Sat03/04/20 at 2014, Until Discontinued, Routine, earth science faculty member approving Restricted medication: MEGADC ipratropium (ATROVENT) 0.02 % nebulizer Given 03/05/2020 7:59 A M CDT 0.5 mg solution 0.5 mg 0.5 mg, Inhalation, QID, First dose on Sat03/04/20 at 2014, Until Discontinued, Routine Given 03/04/2020 8:17 PM CDT 0.5 mg ipratropium-albuterol (DUONEB) 0.5 mg-3 mg(2.5 Given 0 03/04/2020 4:07 PM CDT 3 mL mg base)/3 mL nebulizer solution 3 mL 3 mL, Inhalation, ONCE NOW, 1 dose, Sat03/04/20 at 1615, Routine levalbuterol (XOPENEX) nebulizer solution Given 03/05/2020 7:59 AM CDT 0.63 mg 0.63 mg 0.63 mg, Inhalation, QID, First dose on Sat03/04/20 at 2015, Until Discontinued, Routine, Approved by: ADC PROVIDER Given 03/04/2020 8:17 PM CDT 0.63 mg methylprednisolone sod succ (SOLU-MEDROL) Given 03/04/2020 4:13 PM CDT 125 mg injection 125 mg 125 mg, Slow IV Push, ONCE NOW, 1 dose, Sat03/04/20 at 1715, GRICEL methylprednisolone sod succ (SOLU-MEDROL) Given 03/05/2020 11:49 AM CDT 60 mg injection 60 mg 60 mg, Slow IV Push, Q6H, First dose on 03/05/20 at 0000, Until Discontinued, Routine Given 03/05/2020 6:35 AM CDT 60 mg Given 03/05/2020 12:13 AM CDT 60 mg NaCl 0.9% (NS) IV infusion Dose/Rate Verify 03/05/2020 4:56 AM CDT 75 mL/hr 1,000 mL at 75 mL/hr, IV Infusion, CONTINUOUS, Starting Sat03/04/20 at 2200, Until 03/05/20 at 1439, Routine New Bag 03/04/2020 9:50 PM CDT 1,000 mL 75 mL/hr NaCl 0.9% (NS) IV infusion Dose/Rate Verify 03/05/2020 7:00 PM CDT 75 mL/hr 1,000 mL at 75 mL/hr, IV Infusion, CONTINUOUS, Starting 03/05/20 at 1445, Until 03/05/20 at 2144, Routine Dose/Rate Verify 03/05/2020 2:45 PM CDT 75 mL/hr nicotine (NICODERM) 14 mg/24 hr patch 1 Given 03/04/2020 9:50 P M CDT 1 Patch Patch 1 Patch, Topical, Administer over 24 Hours, ONCE, 1 dose, 03/04/20 at 2145, Routine nicotine (NICODERM) 14 mg/24 hr patch 1 Given 03/06/2020 9:06 P M CDT 1 Patch Patch 1 Patch, Topical, Administer over 24 Hours, ONCE, 1 dose, 03/06/20 at 2100, Routine documented in this encounter Insurance Payer Benefit Plan Subscriber ID Effective Phone Address Typ e / Group Dates [facility] [id number] 2020-Pres [facility] - MEDICARE ent Adv O MANAGED ADVANTAGE MEDICARE [facility] MEDICAID OF xxxxxxxxx 2019-Pres [phone] Medi caid [place] ent [id number] [place] [address] documented as of this encounter
--- OUTSIDE RECORDS SUMMARY | 2020-03-12 13:53 | XMS REPORT | Summary of Care ---
:1955 Author Organization [facility] Address [address] [place] [address] Care Team Providers Name Role Phone MD Epifanio Unavailable Royal Pederson RNday habilitation specialist Gianni Valenzuela SEPHORA PRODUCT CONSULTANT Banquet Kitchen Supervisor Unavailable Cheirse Dietrich MD Primary Care Provider Reason for Referral (Routine) Status Reason Specialty Diagnoses / Referred By Referred To Procedures Contact Contact New Request Pulmonary Function Diagnoses Dyspnea on exertion Manuel, Technologist Procedures DIAGNOSTIC PROCEDURE Kael Ding MD [address] [facility] [id number] [place] [address] Reason for Visit Reason Comments DYSPNEA Encounter Details Date Type Department Care Team Description 03/07/2020 Case Management [facility] Pulmonary- Nereyda Jackson G, DYSPNEA [facility] [address] [facility] [id number] [place] [address] Entrance B [phone] [place], [place] [phone] Allergies Active Allergy Reactions Severity Noted Date Comments Penicillins Rash 10/05/2016 documented as of this encounter (statuses as of 03/07/2020) Medications Medication Sig Dispensed Refills Start Date End Date Status calcium-vitamin D Take 1 tablet by 30 tablet 2 04/11/2017 Active 500 mg(1,250mg) -200 mouth daily. unit per tablet furosemide 20 mg Take 1 tablet by 30 tablet 2 03/01/202003/31 Active tabletIndications: mouth daily for Acute on chronic 30 days. diastolic congestive heart failure buPROPion XL Take 1 tablet by 60 tablet 1 03/01/2020 Active (WELLBUTRIN XL) 150 mouth daily. mg 24 hr tabletIndications: Tobacco abuse, Depression, unspecified depression type sodium chloride 0.9 Use 3 mL as 100 Vial 10 03/01/2020 Active % nebulizer directed every 6 solutionIndications: (six) hours as Chronic obstructive needed for pulmonary disease, Wheezing unspecified COPD (cough/congestion type ). fluticasone Inhale 200 mcg 30 Each 3 [...] of Breath. doxycycline hyclate Take 1 capsule by 60 capsule 0 03/07/2020 Active 100 mg mouth 2 (two) capsuleIndications: times daily. COPD with acute exacerbation ALPRAZolam 0.5 mg Take 1 tablet by 28 tablet 0 03/07/2020 Active tabletIndications: mouth 2 (two) Anxiety about [...] Almaguer MD [address] [place] [address] [place] [address] [phone] 03/25/2020 Office Visit Pulmonary Disease Bronwyn Don DO [address] [place] [address] 03/29/2020 Office Visit Family Medicine Shanae Dietrich MD [address] [phone] 05/06/2020 Office Visit Pulmonary Disease Bronwyn Don, [address] [place] [address] Name Type Priority Associated Diagnoses Order S chedule DIAGNOSTIC PROCEDURE PULMONARY FUNCTION Routine Dyspnea on exe rtion Ordered: LAB 03/07/2020 Health Maintenance Due Date Last Done Comments [...] filedocumented in this encounter Visit Diagnoses Diagnosis Dyspnea on exertion - Primary Other dyspnea and respiratory abnormalit y documented in this encounter Insurance Payer Benefit Plan Subscriber ID Effective Phone Address Typ e / Group Dates [facility] [id number] 2020-Pres Med icare HEALTHCARE - MEDICARE ent Adv HMO MANAGED ADVANTAGE MEDICARE UNITED UNITED [id number] 2020-Pres PPO HEALTHCARE HEALTHCARE/AA ent RP [id number] MEDICAID OF xxxxxxxxx 2019-Pres [phone] [facility] [id number] [place] [address] documented as of this encounter
--- OUTSIDE RECORDS SUMMARY | 2020-03-12 13:53 | XMS REPORT | Summary of Care ---
:1955 Author Organization [facility] - [facility] Address [address] [place] [address] Care Team Providers Name Role Phone MD Epifanio Unavailable Royal Pederson RNskin care instructor Gianni Valenzuela UTILITY BAG ASSEMBLER Underwriting Clerks Supervisor Unavailable Cherise Dietrich MD Primary Care Provider Toña Klein DO Monument Stonecutter Encounter Details Date Type Department Care Team Description 03/02/2020 Orders Only [facility] Doctor Unassigned, No [address] [facility] Name [place], [place] [phone] [place] [phone] Allergies Active Allergy Reactions Severity Noted Date Comments Penicillins Rash 10/05/2016 documented as of this encounter (statuses as of 03/08/2020) Medications Medication Sig Dispensed Refills Start Date End Date Status calcium-vitamin D 500 Take 1 tablet by 30 tablet 2 04/11/2017 Active mg(1,250mg) -200 unit mouth daily. per tablet furosemide 20 mg Take 1 [...] disease, Wheezing unspecified COPD type (cough/congestion ). fluticasone Inhale 200 mcg 30 Each [...] as of this encounter (statuses as of 03/08/2020) Active Problems Problem Noted Date Acute on [...] as of this encounter (statuses as of 03/08/2020) Immunizations Name Administration Dates Next Due Influenza [...] Cardiology Saray Almaguer MD [address] [place] [phone] 03/25/2020 Office Visit Pulmonary Disease Bronwyn Don DO [address] [place] [phone] 03/29/2020 Office Visit Family Medicine Shanae Dietrich MD [address] [place] [phone] 05/06/2020 Office Visit Pulmonary Disease Bronwyn Don DO [address] [place] [phone] Health Maintenance Due Date Last Done [...] Name Priority Date/Time Associated Diagnosis Comme nts HOME HEALTH - OTHER Routine 03/02/2020 12:01 AM CDT documented in this encounter Results Not on filedocumented in this encounter Insurance Payer Benefit Plan Subscriber ID Effective Phone Address Typ e / Group Dates [facility] [id number] 2020-Prese [facility]/AA nt [facility] MEDICAID OF xxxxxxxxx 2019-Prese [phone] [facility] nt [id number] [place] [address] documented as of this encounter
--- OUTSIDE RECORDS SUMMARY | 2020-03-12 13:53 | XMS REPORT | Summary of Care ---
:1955 Author Organization [facility] - Health Address [address] [place] [address] Care Team Providers Name Role Phone MD Epifanio Unavailable Royal Pederson RNsandstone splitter Gianni Valenzuela MSW Cigarette Vendor Unavailable Cherise Dietrich MD Primary Care Provider Toña Klein DO Plan Consultant Reason for Visit Reason Comments Forms Encounter Details Date Type Department Care Team Description 03/08/2020 Telephone [facility] Pediatrics & Shanae Dietrich, Forms Adult Primary Care- Jean [address] [address] [address] [place] [address] Allergies Active Allergy Reactions Severity Noted Date Comments Penicillins Rash 10/05/2016 documented as of this encounter (statuses as of 03/09/2020) Medications Medication Sig Dispensed Refills Start Date [...] as of this encounter (statuses as of 03/09/2020) Active Problems Problem Noted Date Acute on [...] as of this encounter (statuses as of 03/09/2020) Immunizations Name Administration Dates Next Due Influenza [...] Almaguer MD [address] [place] [phone] 03/25/2020 Office Visit Pulmonary Disease Bronwyn Don DO [address] [place] [phone] 03/29/2020 Office Visit Family Medicine Shanae Dietrich MD [address] [phone] 05/06/2020 Office Visit Pulmonary Disease Bronwyn Don DO [address] [place] [phone] Health Maintenance Due Date Last Done Comments [...] Address Typ e / Group Dates [facility] [id number] 2020-Prese [facility]/AA nt [facility] MEDICAID OF xxxxxxxxx 2019-Prese [phone] [facility] nt [id number] [place] [address] documented as of this encounter
--- OUTSIDE RECORDS SUMMARY | 2020-03-12 13:53 | XMS REPORT | Summary of Care ---
:1955 Author Organization [facility] - Health Address [address] [place] [address] Care Team Providers Name Role Phone MD Epifanio Unavailable Royal Pederson RNapartment locator Gianni Valenzuela MSW Sulfur Burner Unavailable Cherise Dietrich MD Primary Care Provider Toña Klein DO Authorizer Reason for Visit Reason Comments Forms Encounter Details Date Type Department Care Team Description 03/07/2020 Telephone [facility] Pediatrics & Shanae Dietrich, Forms Adult Primary Care- Jean VASQUEZ [address] [place] [address] [address] [place] [address] Allergies Active Allergy Reactions Severity [...] Almaguer MD [address] [place], [place] [phone] 03/25/2020 Office Visit Pulmonary Disease Bronwyn Don DO [address] [place] [phone] 03/29/2020 Office Visit Family Medicine Shanae Dietrich MD [address] [phone] 05/06/2020 Office Visit Pulmonary Disease Bronwyn Don DO [address] [place] [phone] Health Maintenance Due Date Last Done Comments [...] Phone Address Typ e / Group Dates [facility] [id number] 2020-Prese [facility]/AA nt [facility] MEDICAID OF xxxxxxxxx 2019-Prese [phone] Med [facility] nt [phone] [place] [address] documented as of this encounter
--- OUTSIDE RECORDS SUMMARY | 2020-03-12 13:54 | XMS REPORT | Summary of Care ---
:1955 Author Organization [address] [address] Care Team Providers Name Role Phone MD Epifanio Unavailable Royal Pederson RNdata analyst report writer Gianni Valenzuela Bilingual Account Manager Unavailable Cherise Dietrich MD Primary Care Provider Toña Klein DO Dietary Internship Reason for Visit Reason Comments Hospital F/U Encounter Details Date Type Department Care Team Description 03/10/2020 Patient Outreach Critical access hospital Gia Pederson, RN [facility] F/[address] [phone] Allergies Active Allergy Reactions Severity Noted Date Comments Penicillins Rash 10/05/2016 documented as of this encounter (statuses as of 03/10/2020) Medications Medication Sig Dispensed Refills Start Date [...] as of this encounter (statuses as of 03/10/2020) Active Problems Problem Noted Date Acute on [...] as of this encounter (statuses as of 03/10/2020) Immunizations Name Administration Dates Next Due Influenza [...] encounter Progress Notes Manda Pederson RN - 03/10/2020 3:27 PM CDTCHP CM attempted to f/u with the patient s/p discharge. No vm has been set up. MEA Kendall, RN, [facility] Outpatient Water Restoration TechnicianBrass PicklerUnc Health Rex [facility] O: [phone] M: [phone] documented in this encounter Plan of Treatment Date Type Specialty Care Team Description 03/25/2020 Office Visit Pulmonary Disease Bronwyn Don DO [address] [facility] [place] [phone] 03/29/2020 Office Visit Family Medicine Shanae Dietrich MD [address] [phone] 05/06/2020 Office Visit Pulmonary Disease Bronwyn Don DO [address] [place] [phone] Health Maintenance Due Date Last Done Comments [...] Phone Address Typ e / Group Dates [facility]ALEXANDRA [id number] 2020-Pres Med [facility] HEALTHCARE - MEDICARE ent Adv HMO MANAGED ADVANTAGE MEDICARE [facility] MEDICAID OF xxxxxxxxx 2019-Pres [phone] Medi caid [place] ent [id number] [place] [address] [facility] [id number] 2020-Pres O HEALTHCARE HEALTHCARE/AA ent RP documented as of this encounter
--- OUTSIDE RECORDS SUMMARY | 2020-03-12 13:54 | XMS REPORT | Summary of Care ---
:1955 Author Organization [facility] - [facility] Address [address] [place] [address] Care Team Providers Name Role Phone MD Epifanio Unavailable Royal Pederson RNnail making machine tender Gianni Valenzuela Tie Tamper Unavailable Cherise Dietrich MD Primary Care Provider Toña Klein DO Primer Press Operator Reason for Visit Reason Comments Transition Of Care Encounter Details Date Type Department Care Team Description 03/09/2020 Transition of Care [facility]ford [facility] [address] [address] Allergies Active Allergy Reactions Severity Noted Date [...] Cardiology Saray Almaguer MD [address] [place] [phone] 03/25/2020 Office Visit Pulmonary Disease Bronwyn Don DO [address] [place] [address] 03/29/2020 Office Visit Family Medicine Shanae Dietrich MD [address] [place] [address], [place] [address] 05/06/2020 Office Visit Pulmonary Disease Florencia HodajerikeyanaDO [address] [place] [phone] Health Maintenance Due Date Last Done Comments [...] Phone Address Typ e / Group Dates [place] [facility]ALEXANDRA [id number] 2020-[facility] - MEDICARE ent Adv HMO MANAGED ADVANTAGE MEDICARE [facility] MEDICAID OF xxxxxxxxx 2019-Pres [phone] Medi caid [place] ent [id number] [place] [address] [facility] [id number] 2020-Pres O HEALTHCARE HEALTHCARE/AA ent RP documented as of this encounter
--- OUTSIDE RECORDS SUMMARY | 2020-03-12 13:55 | XMS REPORT | Summary of Care ---
:1955 Author Organization [address] [address] Care Team Providers Name Role Phone MD Epifanio Unavailable Royal Pederson RNjuice packaging machines setter Gianni Valenzuela Clearance Center Manager Unavailable Cherise Dietrich MD Primary Care Provider Toña Klein DO Topographical Engineer Reason for Visit Reason Comments Hospital F/U Encounter Details Date Type Department Care Team Description 03/10/2020 Patient Outreach [facility] Gia Pederson, RN [facility] F/[address] [address] Allergies Active Allergy Reactions [...] Pederson RN - 03/10/2020 3:27 PM CDTCHP f/u: Pt called to report to CM she is back in the hospital at [facility] in [place]. CM attempted to call her back and she did not answer. MAE Kendall, RN, [facility] Outpatient Subway Train OperatorMid Level Java DeveloperAt[facility] O: [phone] M: [phone] Manda Gomez RN - 03/10/2020 3:27 PM CDTCHP CM attempted to f/u with the patient s/p discharge. No vm has been set up. MAE Kendall, RN, [facility] Outpatient Subway Train OperatorMid Level Java DeveloperAt[facility] O: [phone] M: [phone] documented in this encounter Plan of Treatment Date Type Specialty Care Team Description 03/25/2020 Office Visit Pulmonary Disease Florencia Bronwyn, [address] [place] [address] 03/29/2020 Office Visit Family Medicine Shanae Dietrich MD [address] [place] [phone] 05/06/2020 Office Visit Pulmonary Disease Bronwyn Don [address] [place] [address] Health Maintenance Due Date Last [...] Typ e / Group Dates [employer]/ALEXANDRA [id number] 2020-Pres Med [facility]ly [facility] - MEDICARE ent Adv HMO MANAGED ADVANTAGE MEDICARE TM MEDICAID OF xxxxxxxxx 2019-Pres [phone] Charles mendoza [place] ent [id number] [place] [address] [facility] [id number] 2020-Pres PPO HEALTHCARE HEALTHCARE/AA ent RP documented as of this encounter
--- NOTE | 2020-03-12 15:12 | P.PN ---
Subjective Date of Service: 03/12/20 Subjective: Other (Patient discharged yesterday. She began to have shortness of breath after smoking. Patient readmitted for acute on chronic respiratory failure with hypoxia and hypercapnia.) Physical Examination - Vital Signs Temperature: 98.7 F Blood Pressure: 133/69 Pulse: 104 Respirations: 20 Pulse Ox (%): 98 - Physical Exam General: Alert, In no apparent distress, Other (Increase anxiety) HEENT: Atraumatic Neck: Supple Respiratory: Expiratory wheezes Cardiovascular: Normal pulses, Regular rate/rhythm Gastrointestinal: Normal bowel sounds, Soft and benign, Non-distended Neurological: Normal speech, Normal strength at 5/5 x4 extr, Normal tone, Normal affect - Studies Laboratory Data (last 24 hrs) 03/12/20 02:17: PT 9.9, INR 0.84, APTT 24.0 L 03/12/20 02:17: WBC 16.8 H D, Hgb 13.6, Hct 41.8, Plt Count 345 03/12/20 02:17: Sodium 143, Potassium 3.5, BUN 22 H, Creatinine 0.74, Glucose 116 H, Total Bilirubin 0.2, AST 17, ALT 38, Alkaline Phosphatase 48, Amylase 43, Lipase 90 Microbiology Data (last 24 hrs): 03/12/20 02:28 Blood - Blood Anaerobic Blood Culture - Final Medications List Reviewed: Yes Assessment & Plan Discharge Plan: Home Plan to discharge in: 24 Hours Physician Review Additional Text: Impression: Acute on chronic respiratory failure with hypoxia/hypercapnia on chronic home oxygen with COPD exacerbation Tobacco abuse Alcohol abuse Anxiety Plan: Case discussed with pulmonology. Will have patient's family bring in non invasive ventilator to make sure machine is working properly. Continue COPD treatment. Home medications. Will continue to monitor Overnite. Tobacco cessation addressed in detail. Patient understands the importance of taking her medication. She left yesterday from the hospital without picking up her necessary COPD medication. Will need to make sure patient has COPD medication prescribed from yesterday with patient prior to discharge. Will also make sure ventilator is working appropriately. Anticipate discharge tomorrow. Time Spent Managing Pts Care (In Minutes): 55
[2020-03-13 06:15] LABS: ALT/SGPT 27 U/L (12-78); AST/SGOT 9 U/L (15-37); Alkaline Phosphatase 40 U/L (45-117); BUN Blood Urea Nitrogen 21 mg/dL (7-18); Bicarbonate 30 mmol/L (21-32); Bilirubin Total 0.4 mg/dL (0.2-1.0); Glucose Level 141 mg/dL (74-106); Potassium 4.2 mmol/L (3.5-5.1); Sodium Level 139 mmol/L (136-145)
[2020-03-13 06:26] LABS: Absolute Lymphocytes (CBC) 0.8 K/uL (0.7-4.9); Basophils % 0.2 % (0-1.3); Hematocrit 37.2 % (36.0-45.0); Lymphocytes % 5.7 % (15.3-44.8); MPV 7.8 fL (7.6-11.3); RBC Red Blood Cell Count 3.89 M/uL (3.86-4.86)
[2020-03-13 06:43] LABS: Protime INR 0.84
[2020-03-13] MEDS: NICOTINE 21 MG/PAT TD SCH (09:09)
[2020-03-13] MEDS: CALCIUM CARB 500MG/VIT D 200 IU TAB PO SCH (09:11)
[2020-03-13] MEDS: predniSONE 20 MG TAB PO SCH ×2 (09:11→20:49)
[2020-03-13] MEDS: BUPROPION HCL XL 150 MG TAB PO SCH (09:11)
[2020-03-13] MEDS: acetaZOLAMIDE 250 MG TAB PO SCH (09:11)
[2020-03-13] MEDS: ALPRAZOLAM 0.5 MG TABLET PO PRN ×2 (09:19→20:49)
--- NOTE | 2020-03-13 11:28 | RAD REPORT ---
EXAM DESCRIPTION: Denisha Single View03/13/2020 6:41 am CLINICAL HISTORY: Shortness breath COMPARISON: March 12 FINDINGS: The lungs remain hyperaerated The lungs appear clear of acute infiltrate. The heart is normal size IMPRESSION: No acute abnormalities displayed
--- NOTE | 2020-03-14 00:24 | P.PN ---
Subjective Date of Service: 03/13/20 Patient used her CPAP last night and she is feeling better. She will need inhaler therapy as well. She does not have this at this time. She will need to pick it up from the pharmacy. Okay to discharge when okay with Pulmonary. Review of Systems 10-point ROS is otherwise unremarkable Physical Examination - Vital Signs Temperature: 97.8 F Blood Pressure: 129/64 Pulse: 88 Respirations: 16 Pulse Ox (%): 95 - Physical Exam General: Alert, In no apparent distress, Oriented x3 Respiratory: Diminished, Expiratory wheezes Cardiovascular: Normal pulses, Regular rate/rhythm, Normal S1 S2 Gastrointestinal: Normal bowel sounds, Soft and benign, Non-distended, W/out succussion splash Musculoskeletal: No clubbing, No swelling, No contractures Neurological: Normal strength at 5/5 x4 extr, Normal tone, Sensation intact, Cranial nerves 3-12 intact - Studies Microbiology Data (last 24 hrs): 03/12/20 02:28 Blood - Blood Anaerobic Blood Culture - Final Medications List Reviewed: Yes Assessment & Plan - Problems (Diagnosis) (1) Respiratory failure with hypoxia and hypercapnia Current Visit: No Status: Acute Qualifiers: Chronicity: chronic Qualified Code(s): J96.11 - Chronic respiratory failure with hypoxia; J96.12 - Chronic respiratory failure with hypercapnia (2) Leukocytosis Current Visit: Yes Status: Acute (3) Anxiety disorder Current Visit: Yes Status: Acute - Plan Plan: Continue with current plan of care as mentioned below 1. Continue with inhaler therapy 2. Continue with steroid therapy 3. CPAP this evening 4. Pulmonary consultation pending 5. Out of bed and ambulate 6. Monitor hemodynamics and saturations 7. GI and DVT prophylaxis Discharge Plan: Home Plan to discharge in: 48 Hours - Advance Directives Does patient have a Living Will: No Does patient have a Durable POA for Healthcare: No - Code Status/Comfort Care Code Status: Full Code Critical Care: No Time Spent Managing PTS Care (In Minutes): 25
--- NOTE | 2020-03-14 07:48 | P.DS ---
Discharge Date: 03/14/20 Disposition: DC HOME/HOME HEALTH CARE Discharge Condition: GOOD Reason for Admission: Hypercapnic respiratory failure Consultations: Pulmonary - Problems (1) Respiratory failure with hypoxia and hypercapnia Status: Acute Qualifiers: Chronicity: chronic Qualified Code(s): J96.11 - Chronic respiratory failure with hypoxia; J96.12 - Chronic respiratory failure with hypercapnia (2) Leukocytosis Status: Acute (3) Anxiety disorder Status: Acute Brief History of Present Illness: Patient is a 65-year-old female was admitted to the hospital with difficulty breathing. Patient was recently discharged this morning. She had been doing well; however, while she was at home noticed that her O2 saturations had gone down to 60% on her CPAP. She was getting more short of breath and felt like she was having a panic attack so she called EMS. When they arrived her sats were still in the low 80 percentile on oxygen. She states she had on a mask which I am assuming was a non-rebreather. Patient came into the emergency room for further evaluation. In the emergency room patient was hypercapnic with a pH of 7.28. Patient had been on acetazolamide. Her pCO2 was below her levels that she was discharge staff. However, her bicarb had gone down as well. Decision was made to admit the patient to the hospital for further evaluation. Hospital Course: Patient has improved. The patient's symptoms continue to do well. At this time, patient is stable for discharge with outpatient follow with Pulmonary. Vital Signs/Physical Exam: Temp Pulse Resp BP Pulse Ox 97.6 F 69 18 122/69 98 03/14/20 04:00 03/14/20 04:00 03/14/20 04:00 03/14/20 04:00 03/14/20 04:00 General: Alert, In no apparent distress, Oriented x3 Laboratory Data at Discharge: WBC 13.9 K/uL (4.3-10.9) H D 03/13/20 05:31 Hgb 12.4 g/dL (12.0-15.0) 03/13/20 05:31 Hct 37.2 % (36.0-45.0) 03/13/20 05:31 Plt Count 276 K/uL (152-406) 03/13/20 05:31 PT 9.9 SECONDS (9.5-12.5) 03/13/20 05:31 INR 0.84 03/13/20 05:31 APTT 24.6 SECONDS (24.3-36.9) 03/13/20 05:31 Sodium 139 mmol/L (136-145) 03/13/20 05:31 Potassium 4.2 mmol/L (3.5-5.1) 03/13/20 05:31 BUN 21 mg/dL (7-18) H 03/13/20 05:31 Creatinine 0.43 mg/dL (0.55-1.3) L 03/13/20 05:31 Glucose 141 mg/dL (74-106) H 03/13/20 05:31 Total Bilirubin 0.4 mg/dL (0.2-1.0) 03/13/20 05:31 AST 9 U/L (15-37) L 03/13/20 05:31 ALT 27 U/L (12-78) 03/13/20 05:31 Alkaline Phosphatase 40 U/L (45-117) L 03/13/20 05:31 Amylase 43 U/L (25-115) 03/12/20 02:17 Lipase 90 U/L (73-393) 03/12/20 02:17 Home Medications: Bupropion *Xl* [Wellbutrin XL*] 1 tab PO DAILY 03/08/20 Calcium Carbonate/Vitamin D3 [Calcium 500-Vit D3 10 Mcg Chew] 1 tab PO DAILY 03/08/20 Ipratropium [place] 1 inh IH Q6H PRN 03/08/20 Levalbuterol [Xopenex*] 1 inh IH Q6H PRN 03/08/20 Sodium Chloride For Inhalation [Hyper-Cristian] 3 ml IH Q6H PRN 03/08/20 Fluticasone/Umeclidin/Vilanter [Trelegy Ellipta 100-62.5-25] 1 each IH DAILY 30 Days #30 blst.w.dev 03/09/20 Nicotine [Nicoderm*] 21 mg TD DAILY #30 patch.td24 03/10/20 acetaZOLAMIDE [Diamox*] 250 mg PO DAILY #30 tab 03/10/20 ALPRAZolam [Xanax*] 0.5 mg PO TID PRN #30 tab 03/14/20 predniSONE [Prednisone*] 20 mg PO BID #20 tab 03/14/20 New Medications: predniSONE [Prednisone*] 20 mg PO BID #20 tab ALPRAZolam [Xanax*] 0.5 mg PO TID PRN #30 tab PRN Reason: Anxiety Patient Discharge Instructions: OK TO DC IV AND DC HOME. FOLLOW-UP WITH PRIMARY CARE PROVIDER IN 1-2 WEEKS. FOLLOW-UP WITH PULMONARY. RETURN TO THE ER IF symptoms worsen. CALL DR. SINGLETON AT [phone] IF ANY QUESTIONS REGARDING HOSPITAL STAY. PLEASE CALL THE FLOOR AT [phone] IF ANY MEDICATION OR NURSING QUESTIONS. Diet: AHA Activity: Fall precautions Followup: Zeeshan Martins MD [ACTIVE - CAN ADMIT] - Time spent managing pt's care (in minutes): 25
[2020-03-14] MEDS: IPRATROPIUM BROM 0.5MG/2.5ML IH PRN (08:05)
[2020-03-14] MEDS: predniSONE 20 MG TAB PO SCH (08:58)
[2020-03-14] MEDS: BUPROPION HCL XL 150 MG TAB PO SCH (08:58)
[2020-03-14] MEDS: acetaZOLAMIDE 250 MG TAB PO SCH (08:58)
[2020-03-14] MEDS: CALCIUM CARB 500MG/VIT D 200 IU TAB PO SCH (08:58)
[2020-03-14] MEDS: NICOTINE 21 MG/PAT TD SCH (08:58)
[2020-03-14 10:39] VITALS: BP 146/74; TEMP 97.8
--- NOTE | 2020-03-14 12:35 | P.PN ---
Subjective Date of Service: 03/14/20 Chief Complaint: Hypercapnic respiratory failure Subjective: Improving (Patient's condition is stable she is compliant with the noninvasive ventilator no new changes) Patient is 65 years of age was just admitted again with respiratory distress she was just recently discharged and a noninvasive manner went home started smoking Review of Systems General: Weakness Respiratory: Shortness of Breath Physical Examination - Vital Signs Temperature: 97.8 F Blood Pressure: 146/74 Pulse: 97 Respirations: 20 Pulse Ox (%): 99 - Physical Exam General: Alert, In no apparent distress, Oriented x3 Respiratory: Expiratory wheezes Cardiovascular: No edema, Regular rate/rhythm - Studies Medications List Reviewed: Yes Assessment & Plan - Problems (Diagnosis) (1) Respiratory failure with hypoxia and hypercapnia Current Visit: No Status: Acute Plan: Patient is 65 years of age was readmitted with respiratory distress she is doing well on her noninvasive ventilator will be discharged home and to receive a sample of trilogy from my office labs reviewed white count was mildly elevated no evidence of sepsis Qualifiers: Chronicity: chronic Qualified Code(s): J96.11 - Chronic respiratory failure with hypoxia; J96.12 - Chronic respiratory failure with hypercapnia
[2020-03-14 15:22] VITALS: O2SAT 97
== END 2020-03-14 15:53 | disposition home health service (06) | DRG 189 ==
LOC: ER 02:01 → ERHOLD 04:38 → 4TH 04:51 → 2ND 11:00
PROVIDERS: ADMIT Hospitalist; ATTEND Hospitalist
PROC: 8E0ZXY6 Isolation (ICD-10-PCS; principal; 2020-03-12)
DX: J96.22 Acute and chronic respiratory failure with hypercapnia (principal); J44.1 Chronic obstructive pulmonary disease with (acute) exacerbation; J96.21 Acute and chronic respiratory failure with hypoxia; D72.829 Elevated white blood cell count, unspecified; F41.9 Anxiety disorder, unspecified; F10.10 Alcohol abuse, uncomplicated; F17.210 Nicotine dependence, cigarettes, uncomplicated; Z85.3 Personal history of malignant neoplasm of breast; Z20.828 Contact with and (suspected) exposure to other viral communicable diseases; Z99.81 Dependence on supplemental oxygen; Z79.899 Other long term (current) drug therapy; Z60.2 Problems related to living alone; Z88.0 Allergy status to penicillin
CPT/HCPCS: 36415; 71045; 80048; 80053; 80076; 82150; 82550; 82553; 82805; 83605; 83690; 84145; 84484; 85025; 85610; 85730; 87040; 93005; 94640; 94660; 94760; 99285; J2930; J7030; J7512

== ENCOUNTER 2020-03-22 10:47 | Inpatient (IN) | payer MEDICARE, OTHER ==
[2020-03-22] MEDS ORDERED: predniSONE 20 MG TAB ONE (11:20)
[2020-03-22] MEDS ORDERED: LEVALBUTEROL 1.25 MG/3 ML NEB ONE (11:21)
[2020-03-22] MEDS ORDERED: FAMOTIDINE 20 MG/2 ML VIAL IV ONE (11:21)
--- NOTE | 2020-03-22 11:23 | RAD REPORT ---
EXAM DESCRIPTION: Denisha Single View03/22/2020 11:15 am CLINICAL HISTORY: sob COMPARISON: March 13 FINDINGS: The lungs are hyperaerated The lungs appear clear of acute infiltrate. The heart is normal size IMPRESSION: No acute abnormalities displayed
[2020-03-22 11:28] LABS: Absolute Lymphocytes (CBC) 2.1 K/uL (0.7-4.9); Basophils % 0.5 % (0-1.3); Lymphocytes % 16.1 % (15.3-44.8); MPV 7.5 fL (7.6-11.3)
[2020-03-22 11:45] LABS: BUN Blood Urea Nitrogen 14 mg/dL (7-18); Bicarbonate 37 mmol/L (21-32); Glucose Level 104 mg/dL (74-106); Magnesium 2.6 mg/dL (1.8-2.4); Potassium 4.3 mmol/L (3.5-5.1); Sodium Level 143 mmol/L (136-145); Troponin (Emerg Dept Use Only) < 0.02 ng/mL (0.0-0.045)
[2020-03-22 12:41] LABS: Arterial Blood Carboxyhemoglob 2.1 % (0-1.5); Blood Gas Oxyhemoglobin 94.4 % (94-97); Blood O2 Saturation 97.2 % (92-98.5)
[2020-03-22 13:12] LABS: Blood Morphology Comment NOT SEEN (NOT SEEN); Platelet Estimate ADEQ; Urine White Blood Cell Casts OK
--- NOTE | 2020-03-22 13:13 | EDPHYS ---
Physician Documentation [facility] Name: Mariana Turner Age: 65 yrs Sex: Female : 1955 Arrival Date: 03/22/2020 Time: 10:49 Bed 8 Private MD: ED Physician Nabeel Thomson HPI: 03/23 10:16 This 65 yrs old Female presents to ER via EMS with complaints of Shortness Of kdr Breath. 10:16 The patient has shortness of breath at rest, with light activity. Onset: The kdr symptoms/episode began/occurred gradually, 1 week(s) ago. Duration: The symptoms are continuous, and are steadily getting worse. The patient's shortness of breath is aggravated by coughing, exertion, light activity, talking. Associated signs and symptoms: Pertinent positives: non-productive cough, Pertinent negatives: chest pain, dizziness, fever, loss of consciousness, nausea, numbness in extremities, visual changes, vomiting. Severity of symptoms: At their worst the symptoms were moderate severe in the emergency department the symptoms have improved mildly. The patient has experienced similar episodes in the past, multiple times. The patient has been recently seen by a physician: the patient's primary care provider. The patient has a long history of COPD. Historical: - Allergies: 03/22 10:52 PENICILLINS; sv - PMHx: 10:52 Anxiety; Cancer, Breast; CHF; COPD; sv - PSHx: 10:52 Mastectomy, Right; sv - Immunization history:: Adult Immunizations. - Social history:: Smoking status: Patient reports the use of cigarette tobacco products, smokes one-half pack cigarettes per day. ROS: 03/23 10:16 Constitutional: Negative for fever, chills, and weight loss, Eyes: Negative for injury, kdr pain, redness, and discharge, Neck: Negative for injury, pain, and swelling, Cardiovascular: Negative for chest pain, palpitations, and edema, Abdomen/GI: Negative for abdominal pain, nausea, vomiting, diarrhea, and constipation, Back: Negative for injury and pain, : Negative for injury, bleeding, discharge, and swelling, MS/Extremity: Negative for injury and deformity, Skin: Negative for injury, rash, and discoloration, Neuro: Negative for headache, weakness, numbness, tingling, and seizure activity. Psych: Negative for depression, anxiety, suicide ideation, homicidal ideation, and hallucinations, Allergy/Immunology: Negative for hives, rash, and allergies, Endocrine: Negative for neck swelling, polydipsia, polyuria, polyphagia, and marked weight changes, Hematologic/Lymphatic: Negative for swollen nodes, abnormal bleeding, and unusual bruising. Respiratory: Positive for dyspnea on exertion, shortness of breath, at rest. wheezing, Negative for hemoptysis, orthopnea, pleurisy. Exam: 10:16 Constitutional: This is a well developed, well nourished patient who is awake, alert, kdr and in no acute distress. Head/Face: Normocephalic, atraumatic. Eyes: Pupils equal round and reactive to light, extra-ocular motions intact. Lids and lashes normal. Conjunctiva and sclera are non-icteric and not injected. Cornea within normal limits. Periorbital areas with no swelling, redness, or edema. Neck: Trachea midline, no thyromegaly or masses palpated, and no cervical lymphadenopathy. Supple, full range of motion without nuchal rigidity, or vertebral point tenderness. No Meningismus. Chest/axilla: Normal chest wall appearance and motion. Nontender with no deformity. No lesions are appreciated. Cardiovascular: Regular rate and rhythm with a normal S1 and S2. No gallops, murmurs, or rubs. Normal PMI, no JVD. No pulse deficits. Abdomen/GI: Soft, non-tender, with normal bowel sounds. No distension or tympany. No guarding or rebound. No evidence of tenderness throughout. Back: No spinal tenderness. No costovertebral tenderness. Full range of motion. Skin: Warm, dry with normal turgor. Normal color with no rashes, no lesions, and no evidence of cellulitis. MS/ Extremity: Pulses equal, no cyanosis. Neurovascular intact. Full, normal range of motion. Neuro: Awake and alert, GCS 15, oriented to person, place, time, and situation. Cranial nerves II-XII grossly intact. Motor strength 5/5 in all extremities. Sensory grossly intact. Cerebellar exam normal. Normal gait. Psych: Awake, alert, with orientation to person, place and time. Behavior, mood, and affect are within normal limits. 10:16 Respiratory: mild respiratory distress is noted, Respirations: labored breathing, that is mild, Breath sounds: decreased breath sounds, that are moderate, are scattered. Vital Signs: 03/22 10:35 BP 142 / 73; Pulse 99; Resp 26; Temp 97.7; Pulse Ox 100% ; Weight 54.43 kg; Height 5 sv ft. 2 in. (157.48 cm); Pain 0/10; 12:04 BP 157 / 87; Pulse 102; Resp 22; Pulse Ox 97% on 4 lpm NC; sv 13:24 BP 135 / 68; Pulse 79; Resp 22; Pulse Ox 100% on 4 lpm NC; sv 14:24 BP 129 / 67; Pulse 76; Resp 18; Pulse Ox 100% on 35% BiPAP; sv 14:53 BP 110 / 65; Pulse 79; Resp 18; Pulse Ox 98% on 35% BiPAP; sv 10:35 Body Mass Index 21.95 (54.43 kg, 157.48 cm) sv 14:24 14/7, rate-18 sv MDM: 13:12 Patient medically screened. kdr 03/23 10:16 Data reviewed: vital signs, nurses notes, lab test result(s), radiologic studies. kdr Counseling: I had a detailed discussion with the patient and/or guardian regarding: the historical points, exam findings, and any diagnostic results supporting the discharge/admit diagnosis, lab results, radiology results, the need for further work-up and treatment in the hospital. 03/22 11:03 Order name: Basic Metabolic Panel; Complete Time: 12:03 kdr 03/22 11:03 Order name: CBC with Diff; Complete Time: 13:12 kdr 03/22 11:03 Order name: Magnesium; Complete Time: 12: kdr 03/22 11:03 Order name: Troponin (emerg Dept Use Only); Complete Time: 12:03 kdr 03/22 11:41 Order name: CBC Smear Scan; Complete Time: 13:12 EDMS 03/22 12:21 Order name: ABG; Complete Time: 13:08 kdr 03/22 11:03 Order name: XRAY Chest (1 view); Complete Time: 12:03 kdr 03/22 11:03 Order name: EKG; Complete Time: 11:04 kdr 03/22 11:03 Order name: Cardiac monitoring; Complete Time: 12:15 kdr 03/22 11:03 Order name: EKG - Nurse/Tech; Complete Time: 11:44 kdr 03/22 13:08 Order name: BIPAP la1 03/22 11:03 Order name: IV Saline Lock; Complete Time: 11: kdr 03/22 11:03 Order name: Labs collected and sent; Complete Time: 11: kdr 03/22 11:03 Order name: O2 Per Protocol; Complete Time: 11: kdr 03/22 11:03 Order name: O2 Sat Monitoring; Complete Time: : kdr Administered Medications: 03/22 11:21 Drug: Xopenex (3) 1.25 mg Route: Inhalation; sv 11:44 Follow up: Response: No adverse reaction sv 11:21 Drug: predniSONE 60 mg Route: PO; sv 11:43 Follow up: Response: No adverse reaction sv 11:21 Drug: Pepcid 20 mg Route: IVP; Site: left antecubital; sv 11:43 Follow up: Response: No adverse reaction sv Disposition: 03/22/20 13:12 Hospitalization ordered by Doron West for Observation. Preliminary diagnosis is COPD Exacerbation, Hypoxia. - Bed requested for Telemetry/MedSurg (Inpatient). - Status is Observation. sv - Condition is Fair. - Problem is an acute exacerbation. - Symptoms have improved. Signatures: Dispatcher [employer] EDDelia Bob RN RN Nabeel Thomson MD MD [facility] Shawn Kraft, PIG HANDLER-C PIG HANDLER-Cla1 Bubba Biggs RN RN [email or web address] Corrections: (The following items were deleted from the chart) 11:22 11:21 Social history: Smoking status: sv 14:23 13:12 Hospitalization Ordered by Doron West DO for Observation. Preliminary ja1 diagnosis is COPD Exacerbation, Hypoxia. Bed requested for Telemetry/MedSurg (Inpatient). Status is Observation. Condition is Fair. Problem is an acute exacerbation. Symptoms have improved. kdr 14:28 14:23 03/22/2020 13:12 Hospitalization Ordered by Doron West DO for Observation. sv Preliminary diagnosis is COPD Exacerbation, Hypoxia. Bed requested for Telemetry/MedSurg (Inpatient). Status is Observation. Condition is Fair. Problem is an acute exacerbation. Symptoms have improved. ja1 14:55 14:28 03/22/2020 13:12 Hospitalization Ordered by Doron West DO for Observation. sv Preliminary diagnosis is COPD Exacerbation, Hypoxia. Bed requested for Telemetry/MedSurg (Inpatient). Status is Observation. Condition is Fair. Problem is an acute exacerbation. Symptoms have improved. sv 15:29 14:55 03/22/2020 13:12 Hospitalization Ordered by Doron West DO for Observation. sv Preliminary diagnosis is COPD Exacerbation, Hypoxia. Bed requested for Telemetry/MedSurg (Inpatient). Status is Observation. Condition is Fair. Problem is an acute exacerbation. Symptoms have improved. sv
--- NOTE | 2020-03-22 13:13 | ER ---
Nurse's Notes [facility] Name: Mariana Turner Age: 65 yrs Sex: Female : 1955 Arrival Date: 03/22/2020 Time: 10:49 Bed 8 Private MD: Diagnosis: COPD Exacerbation, Hypoxia Presentation: 03/22 10:35 Chief complaint: EMS states: SOB that started today. Was on O2 \T\ 4L per NC with O2 sat sv of 85%. Pt had given herself a breathing treatment and used her rescue inhaler. On EMS arrival another A\T\A treatment was given and O2 sat up to 99%. BP 124/60 HR was 120 initially and on arrival is 107. Denies cough, fever. Coronavirus screen: Proceed with normal triage. Patient denies a cough. Patient reports shortness of breath or difficulty breathing. Patient denies measured and/or subjective temperature greater than 100.4F prior to today's visit. Patient denies travel on a cruise ship or to a country the [facility] currently lists as an affected area. Patient denies contact with known and/or suspected case of COVID-19. Ebola Screen: No symptoms or risks identified at this time. Initial Sepsis Screen: Does the patient meet any 2 criteria? RR > 20 per min. HR > 90 bpm. Does the patient have a suspected source of infection? No. Patient's initial sepsis screen is negative. Risk Assessment: Do you want to hurt yourself or someone else? Patient reports no desire to harm self or others. Onset of symptoms was March 22, 2020. 10:35 Method Of Arrival: EMS: [facility] sv 10:35 Acuity: ANDRADE 2 sv Triage Assessment: 10:35 General: Appears in no apparent distress. comfortable, well developed, Behavior is sv calm, cooperative, appropriate for age. Pain: Denies pain. Neuro: Level of Consciousness is awake, alert, obeys commands, Oriented to person, place, time, situation, Moves all extremities. Full function Speech is normal. Respiratory: Reports shortness of breath on exertion Airway is patent Respiratory effort is even, unlabored, Respiratory pattern is symmetrical, tachypnea Onset: The symptoms/episode began/occurred this morning, the patient has mild shortness of breath. Derm: Skin is normal. Historical: - Allergies: 10:52 PENICILLINS; sv - PMHx: 10:52 Anxiety; Cancer, Breast; CHF; COPD; sv - PSHx: 10:52 Mastectomy, Right; sv - Immunization history:: Adult Immunizations. - Social history:: Smoking status: Patient reports the use of cigarette tobacco products, smokes one-half pack cigarettes per day. Screenin:22 Abuse screen: Denies threats or abuse. Denies injuries from another. Nutritional sv screening: No deficits noted. Tuberculosis screening: No symptoms or risk factors identified. Fall Risk None identified. Assessment: 10:56 Reassessment: Dr Thomson to the bedside. sv 11:30 Reassessment: Patient appears in no apparent distress at this time. Patient and/or sv family updated on plan of care and expected duration. Pain level reassessed. Patient is alert, oriented x 3, equal unlabored respirations, skin warm/dry/pink. Patient states feeling better. Patient states symptoms have improved. 12:13 Reassessment: Dr Thomson at the bedside. sv 13:00 Reassessment: Patient appears in no apparent distress at this time. Patient and/or sv family updated on plan of care and expected duration. Pain level reassessed. Patient is alert, oriented x 3, equal unlabored respirations, skin warm/dry/pink. Pt on BIPAP. Patient states feeling better. Patient states symptoms have improved. 14:10 Reassessment: Patient appears in no apparent distress at this time. Patient and/or sv family updated on plan of care and expected duration. Pain level reassessed. Patient is alert, oriented x 3, equal unlabored respirations, skin warm/dry/pink. Pt remains on BIPAP and states that she is able to breathe better. Patient denies pain at this time. Patient states feeling better. Patient states symptoms have improved. 14:27 Reassessment: Attempted to call report, nurse to call back. sv 14:55 Reassessment: Attempted to call report, nurse to call back. sv 15:15 Reassessment: Patient appears in no apparent distress at this time. Patient and/or sv family updated on plan of care and expected duration. Pain level reassessed. Patient is alert, oriented x 3, equal unlabored respirations, skin warm/dry/pink. Vital Signs: 10:35 BP 142 / 73; Pulse 99; Resp 26; Temp 97.7; Pulse Ox 100% ; Weight 54.43 kg; Height 5 sv ft. 2 in. (157.48 cm); Pain 0/10; 12:04 BP 157 / 87; Pulse 102; Resp 22; Pulse Ox 97% on 4 lpm NC; sv 13:24 BP 135 / 68; Pulse 79; Resp 22; Pulse Ox 100% on 4 lpm NC; sv 14:24 BP 129 / 67; Pulse 76; Resp 18; Pulse Ox 100% on 35% BiPAP; sv 14:53 BP 110 / 65; Pulse 79; Resp 18; Pulse Ox 98% on 35% BiPAP; sv 10:35 Body Mass Index 21.95 (54.43 kg, 157.48 cm) sv 14:24 14/7, rate-18 sv ED Course: 10:49 Patient arrived in ED. sv 10:50 Nabeel Thomson MD is Attending Physician. kdr 10:51 Triage completed. sv 10:55 Delia Gregory, KURT is Primary Nurse. sv 10:56 ED physician to see patient. sv 11:10 Inserted saline lock: 20 gauge in left antecubital area, using aseptic technique. sv ,using aseptic technique. [facility] collected. 11:15 XRAY Chest (1 view) In Process Unspecified. EDMS 11:20 Patient has correct armband on for positive identification. Bed in low position. Call sv light in reach. Side rails up X2. Pulse ox on. NIBP on. 11:20 Door closed. Warm blanket given. Head of bed elevated. sv 11:22 Arm band placed on. sv 13:07 Doron West DO is Hospitalizing Provider. kdr 13:37 Warm blanket given. sv 13:38 Awaiting bed assignment. sv 14:24 No provider procedures requiring assistance completed. Patient admitted, IV remains in sv place. intact. Administered Medications: 11:21 Drug: Xopenex (3) 1.25 mg Route: Inhalation; sv 11:44 Follow up: Response: No adverse reaction sv 11:21 Drug: predniSONE 60 mg Route: PO; sv 11:43 Follow up: Response: No adverse reaction sv 11:21 Drug: Pepcid 20 mg Route: IVP; Site: left antecubital; sv 11:43 Follow up: Response: No adverse reaction sv Outcome: 13:12 Decision to Hospitalize by Provider. kdr 15:15 Admitted to Tele accompanied by tech, via stretcher, with oxygen, with chart, Report sv called to Eulalia HICKS 15:15 Condition: stable 15:15 Instructed on the need for admit. 15:29 Patient left the ED. sv Signatures: Dispatcher [employer] Delia Barry RN RN sv Rittger, Kevin, MD MD kdr Corrections: (The following items were deleted from the chart) 11:22 11:21 Social history: Smoking status: mari guerra
--- NOTE | 2020-03-22 13:25 | P.HP ---
Certification for Inpatient Patient admitted to: Inpatient With expected LOS: >2 Midnights Patient will require the following post-hospital care: None Practitioner: I am a practitioner with admitting privileges, knowledge of patient current condition, hospital course, and medical plan of care. Services: Services provided to patient in accordance with Admission requirements found in Title 42 Section 412.3 of the Code of Federal Regulations <Shawn Kraft - Last Filed: 03/22/20 13:16> Patient History Date of Service: 03/22/20 Reason for admission: Acute on chronic respiratory failure History of Present Illness: 65-year-old female with history of COPD, CHF, tobacco abuse who presented the emergency department for shortness of breath. He was reported by EMS the patient was 85% on 3 L per nasal cannula which is her prescribed home oxygen level. Patient also uses NIV at home, patient reports when she has to take the soft use the restroom repeat that she quickly becomes anxious and short of breath. Patient was evaluated in the emergency department and found to have respiratory acidosis with hypercapnea. Patient has recently been admitted for acute on chronic respiratory failure. At this time ED provider wishes to admit patient for further evaluation and management. When I saw the patient in the emergency department she was on nasal cannula. Patient appeared stable although she was having difficulty speaking full sentences. Patient reports that she has been having difficulties at home when she comes off of her noninvasive ventilator. Patient will be admitted for further evaluation management of this condition. - Past Medical/Surgical History Diabetic: No -: COPD -: Hypertension -: CHF likely diastolic -: Depression with anxiety -: Tobacco abuse -: Alcohol abuse -: Right mastectomy Psychosocial/ Personal History: Patient lives at home alone, patient does have home health - Family History Family History: Reviewed- Non-Contributory - Family History Mother -: Cancer Notes: breast Father -: Lung disease Notes: asbestosis - Social History Smoking Status: Current every day smoker Counseled patient to stop smoking for: less than 10 minutes Alcohol use: Yes CD- Drugs: No Caffeine use: Yes <Shawn Kraft - Last Filed: 03/22/20 13:16> Date of Service: 03/22/20 Home medications list reviewed: Yes - Social History Place of Residence: Home <Doron West - Last Filed: 03/22/20 18:35> Allergies Penicillins Allergy (Verified 03/12/20 06:12) Rash Home Medications: Bupropion *Xl* [Wellbutrin XL*] 1 tab PO DAILY 03/08/20 Calcium Carbonate/Vitamin D3 [Calcium 500-Vit D3 10 Mcg Chew] 1 tab PO DAILY 03/08/20 Ipratropium [place] 1 inh IH Q6H PRN 03/08/20 Levalbuterol [Xopenex*] 1 inh IH Q6H PRN 03/08/20 Sodium Chloride For Inhalation [Hyper-Cristian] 3 ml IH Q6H PRN 03/08/20 Fluticasone/Umeclidin/Vilanter [Trelegy Ellipta 100-62.5-25] 1 each IH DAILY 30 Days #30 blst.w.dev 03/09/20 Nicotine [Nicoderm*] 21 mg TD DAILY #30 patch.td24 03/10/20 acetaZOLAMIDE [Diamox*] 250 mg PO DAILY #30 tab 03/10/20 ALPRAZolam [Xanax*] 0.5 mg PO TID PRN #30 tab 03/14/20 predniSONE [Prednisone*] 20 mg PO BID #20 tab 03/14/20 Albuterol Sulfate [Proair Hfa] 1 inh IH TID PRN 03/22/20 Review of Systems General: Unremarkable Eyes: Unremarkable ENT: Unremarkable Respiratory: Cough, Shortness of Breath, SOB with Excertion, Wheezing Cardiovascular: Unremarkable Gastrointestinal: Unremarkable Genitourinary: Unremarkable Musculoskeletal: Unremarkable Integumentary: Unremarkable Neurological: Unremarkable Lymphatics: Unremarkable <Shawn Kraft - Last Filed: 03/22/20 13:16> Physical Examination - Physical Exam General: Alert, In no apparent distress, Oriented x3 HEENT: Atraumatic, Normocephalic Neck: Supple Respiratory: Diminished, Expiratory wheezes (Mild, bilaterally) Cardiovascular: No edema, Normal pulses, Regular rate/rhythm, Normal S1 S2 Capillary refill: <2 Seconds Gastrointestinal: Normal bowel sounds, Soft and benign, No tenderness Musculoskeletal: No erythema, No tenderness, No warmth Integumentary: No erythema, No warmth, No cyanosis Neurological: Normal speech, Normal strength at 5/5 x4 extr, Normal tone, Sensation intact - Studies Laboratory Data (last 24 hrs) 03/22/20 11:15: WBC 12.7 H, Hgb 13.5, Hct 42.0, Plt Count 316 03/22/20 11:15: Sodium 143, Potassium 4.3, BUN 14, Creatinine 0.57, Glucose 104, Magnesium 2.6 H <Shawn Kraft - Last Filed: 03/22/20 13:16> - Studies Laboratory Data (last 24 hrs) 03/22/20 11:15: WBC 12.7 H, Hgb 13.5, Hct 42.0, Plt Count 316 03/22/20 11:15: Sodium 143, Potassium 4.3, BUN 14, Creatinine 0.57, Glucose 104, Magnesium 2.6 H <Doron West - Last Filed: 03/22/20 18:35> Assessment and Plan - Plan Assessment Acute on chronic respiratory failure with respiratory acidosis and hypercapnia secondary to COPD-on home oxygen Tobacco abuse Depression Plan Acute on chronic respiratory failure with respiratory acidosis and hypercapnia secondary to end-stage COPD-on home oxygen: Patient placed on BiPAP while in the emergency department. Pulmonology has been consulted on this case. Patient will remain on BiPAP to promote reduction in CO2. Will continue with oral steroids, inhaled corticosteroid. The patient has had many recent hospitalizations for acute on chronic respiratory failure, may benefit from LTAC help get her to the point where she can't take care of herself at home. Patient does have noninvasive ventilator at home, attempted to have patient bring in the noninvasive ventilator for further education and understanding but patient is not comfortable doing so as she is responsible for it if anything happens to her. DVT prophylaxis with Lovenox 40 mg subcutaneous once daily. Appreciate further input from pulmonology. Tobacco abuse: Patient has cut down significantly from 40 cigarettes per day down to 3. Encouraged patient to completely abstain from cigarette smoking. Patient refused transdermal nicotine patch as she states and makes her cravings worse. Depression: Will obtain and continue patient's home medications. Discharge Plan: Home Plan to discharge in: 48 Hours - Advance Directives Does patient have a Living Will: No Does patient have a Durable POA for Healthcare: No Physician Review: Patient Assessed, Agree with Above Assessment and Plan Critical Care: No Time Spent Managing Pts Care (In Minutes): 55 <Shawn Kraft - Last Filed: 03/22/20 13:16> - Plan Patient seen examined. Agree with nurse practitioner. Case discussed in detail including evaluation, assessment and plan of care. Spoke with patient at length. Patient desires to go home rather than going to a long-term care facility. Other considerations include hospice. Patient is agreeable to this. Will discuss further with social worker palliative care. Advanced directives also addressed. Patient is do not resuscitate. <Doron West - Last Filed: 03/22/20 18:35>
--- OUTSIDE RECORDS SUMMARY | 2020-03-22 13:28 | XMS REPORT | Continuity of Care Document ---
:1955 Author Organization [facility] t Address [facility] [place] [address] Care Team Providers Name Role Phone Cherise Dietrich MD Attending Clinician Bg HICKS, E Attending Clinician Doctor Unassigned, Name Attending Clinician Unavailable Problems This patient has no known problems. Allergies, Adverse Reactions, Alerts This patient has no known allergies or adverse reactions. Medications This patient has no known medications. Procedures This patient has no known procedures. Encounters Start End Encounter Admission Attending Care Care Encounter Source Date/Time Date/Time Type Type Clinicians Facility Department ID 2020-03-18 2020-03-18 Telephone Karlo Pena [id number] 00:00:00 00:00:00 , [facility] [id number] M s and [id number] Adult [id number] [facility] 2020-03-15 2020-03-15 Telephone Karlo Pena [id number] 00:00:00 00:00:00 , [facility] [id number] M s and [id number] Adult [id number] [facility] 2020-03-10 2020-03-10 Patient Manda Pederson [id number] 00:00:00 00:00:00 Outreach E Beckman [id number] [place] [id number] 2020-03-08 2020-03-08 Orders Doctor EL [id number] 00:00:00 00:00:00 Only Unassigned, SHEELA [id number] [place] [facility] [id number] Results This patient has no known results.
--- OUTSIDE RECORDS SUMMARY | 2020-03-22 13:49 | XMS REPORT | Summary of Care ---
:1955 Author Organization [facility] Address [address] [place] [id number] Care Team Providers Name Role Phone MD Epifanio Unavailable Royal Pederson RNplating foreman Gianni Valenzuela DORR OPERATOR Research Animal Attendant Unavailable Cherise Dietrich MD Primary Care Provider Toña Klein DO Radiology Tech Reason for Visit Reason Comments Erroneous encounter-disregard Encounter Details Date Type Department Care Team Description 03/15/2020 Telephone [facility] Pediatrics Mustapha Dietrich & Adult Primary Care- Yasemin Luong MD encounter-disregard [address] [phone] [place] [address] Allergies Active Allergy Reactions Severity Noted Date Comments Penicillins Rash 10/05/2016 documented as of this encounter (statuses as of 03/16/2020) Medications Medication Sig Dispensed Refills Start Date [...] as of this encounter (statuses as of 03/16/2020) Active Problems Problem Noted Date Acute on [...] as of this encounter (statuses as of 03/16/2020) Immunizations Name Administration Dates Next Due Influenza [...] Description 03/25/2020 Office Visit Pulmonary Disease Bronwyn oDn DO [address] [place] [phone] 03/29/2020 Office Visit Family Medicine Shanae Dietrich MD [address] [place] [phone] 05/06/2020 Office Visit Pulmonary Disease Hoda DonjerikeyanaDO [address] [place] [phone] Health Maintenance Due Date Last Done Comments [...] Phone Address Typ e / Group Dates [place] [facility]/ALEXANDRA [id number] 2020-[facility]IC[facility] ent Adv HMO MANAGED ADVANTAGE MEDICARE [facility] MEDICAID OF xxxxxxxxx 2019-Pres [phone] Medi caid [place] ent [id number] [place] [address] [facility] [id number] 2020-Pres O HEALTHCARE HEALTHCARE/AA ent RP documented as of this encounter
--- OUTSIDE RECORDS SUMMARY | 2020-03-22 13:49 | XMS REPORT | Summary of Care ---
:1955 Author Organization [facility] Address [address] [place] [address] Care Team Providers Name Role Phone MD Epifanio Unavailable Royal Pederson RNcow rider Gianni Valenzuela [employer] Slider Assembler Unavailable Cherise Dietrich MD Primary Care Provider Toña Klein DO Dot Compliance Coordinator Encounter Details Date Type Department Care Team Description 03/08/2020 Orders Only [facility] Doctor Unassigned, No [address] [facility] Name [place], [place] [id number] [place] [phone] Allergies Active Allergy Reactions Severity Noted Date Comments Penicillins Rash 10/05/2016 documented as of this encounter (statuses as of 03/15/2020) Medications Medication Sig Dispensed Refills Start Date [...] as of this encounter (statuses as of 03/15/2020) Active Problems Problem Noted Date Acute on [...] as of this encounter (statuses as of 03/15/2020) Immunizations Name Administration Dates Next Due Influenza [...] Office Visit Pulmonary Disease Bronwyn Don DO [address] [place] [phone] 03/29/2020 Office Visit Family Medicine Shanae Dietrich MD [address] [place] [phone] 05/06/2020 Office Visit Pulmonary Disease Bronwyn Don DO [address] [place] [phone] Health Maintenance Due Date Last Done [...] Comme nts HOME HEALTH - OTHER Routine 03/08/2020 12:01 AM CDT documented in this encounter Results Not on filedocumented in this encounter Insurance Payer Benefit Plan Subscriber ID Effective Phone Address Typ e / Group Dates [place] [facility]/ALEX[place]DRA [id number] 2020-Pres Med icare HEALTHCARE - MEDICARE ent Adv HMO MANAGED ADVANTAGE MEDICARE [facility] MEDICAID OF xxxxxxxxx 2019-Pres [phone] Medi caid [place] ent [id number] [place] [address] [facility] [id number] 2020-Pres PPO HEALTHCARE HEALTHCARE/AA ent RP documented as of this encounter
--- OUTSIDE RECORDS SUMMARY | 2020-03-22 13:50 | XMS REPORT | Summary of Care ---
:1955 Author Organization [facility] Address [address] [place] [address] Care Team Providers Name Role Phone MD Epifanio Unavailable Royal Pederson RNpedicab driver Gianni Valenzuela MSW Cam Milling Machine Operator Unavailable Cherise Dietrich MD Primary Care Provider Toña Klein DO Senior Coldfusion Developer Reason for Visit Reason Comments Orders Encounter Details Date Type Department Care Team Description 03/18/2020 Telephone [facility] Pediatrics & Shanae Dietrich, Orders Adult Primary Care- Jean VASQUEZ [address] [place] [address] [phone] [place] [phone] Allergies Active Allergy Reactions Severity Noted Date Comments Penicillins Rash 10/05/2016 documented as of this encounter (statuses as of 03/18/2020) Medications Medication Sig Dispensed Refills Start Date [...] as of this encounter (statuses as of 03/18/2020) Active Problems Problem Noted Date Acute on [...] as of this encounter (statuses as of 03/18/2020) Immunizations Name Administration Dates Next Due Influenza [...] Treatment Date Type Specialty Care Team Description 03/29/2020 Office Visit Family Medicine Shanae Dietrich MD [address] [phone] 05/06/2020 Office Visit Pulmonary Disease Bronwyn Don DO [address] [place] [phone] Health Maintenance Due Date Last Done [...] Phone Address Typ e / Group Dates [place] [facility]/ALEXANDRA [id number] 2020-Pres Med icare HEALTHCARE - MEDICARE ent Adv HMO MANAGED ADVANTAGE MEDICARE [facility] MEDICAID OF xxxxxxxxx 2019-Pres [phone] ca[address] [place] ent [id number] [place] [address] [facility] [id number] 2020-Pres PPO HEALTHCARE HEALTHCARE/AA ent RP documented as of this encounter
[2020-03-22] MEDS ORDERED: ACETAMINOPHEN 500 MG TAB PO PRN (15:05)
[2020-03-22] MEDS ORDERED: ONDANSETRON 4 MG/2 ML VIAL IV PRN (15:05)
[2020-03-22] MEDS ORDERED: XOPENEX IH PRN (15:52)
[2020-03-22 16:02] VITALS: BMI 21.9
[2020-03-22] MEDS: ENOXAPARIN 40 MG/0.4 ML SQ SCH (16:17)
[2020-03-22] MEDS: predniSONE 20 MG TAB PO SCH (20:34)
[2020-03-22] MEDS ORDERED: TRELLEGY ELLIPTA IH SCH (21:00)
[2020-03-22] MEDS: ALPRAZOLAM 0.5 MG TABLET PO PRN (23:32)
[2020-03-23 04:55] LABS: Absolute Lymphocytes (CBC) 0.7 K/uL (0.7-4.9); Basophils % 0.3 % (0-1.3); Hematocrit 33.9 % (36.0-45.0); Lymphocytes % 6.3 % (15.3-44.8); MPV 7.6 fL (7.6-11.3)
[2020-03-23 05:04] LABS: BUN Blood Urea Nitrogen 16 mg/dL (7-18); Bicarbonate 39 mmol/L (21-32); Glucose Level 135 mg/dL (74-106); Potassium 4.5 mmol/L (3.5-5.1); Sodium Level 141 mmol/L (136-145)
--- NOTE | 2020-03-23 07:18 | EKG ---
Test Date: 2020-03-22 Test Time: 11:50:08 Gas Line Installer: ESTELA MEASUREMENT RESULTS: Intervals: Rate: 105 UT: 150 QRSD: 80 QT: 338 QTc: 446 [place]: P: 88 UT: 150 QRS: 99 T: 85 INTERPRETIVE STATEMENTS: Sinus tachycardia Rightward axis Pulmonary disease pattern Abnormal ECG Compared to ECG 03/12/2020 03:55:58 Right-axis deviation now present Electronically Signed On 03-23-20 07:15:50 CDT by Bakari Mcdowell
[2020-03-23 08:28] VITALS: O2SAT 97
[2020-03-23] MEDS: predniSONE 20 MG TAB PO SCH (08:31)
[2020-03-23] MEDS: ENOXAPARIN 40 MG/0.4 ML SQ SCH (08:31)
[2020-03-23] MEDS ORDERED: SODIUM CHLORIDE FOR INHALATION IH PRN (08:40)
[2020-03-23] MEDS ORDERED: [UNRECOGNIZED DRUG - OTHER] IH PRN (08:40)
--- NOTE | 2020-03-23 08:47 | P.CNS ---
Date of Consult: 03/23/20 Reason for Consult: Respiratory failure Chief Complaint: Acute on chronic respiratory failure History of Present Illness: Patient is 65 years of age with terminal COPD admitted with worsening shortness of breath this is 3rd admission in this hospital including multiple admissions at [facility] patient states that a carbon dioxide level builds up she does use the noninvasive ventilator at home compliant with her breathing treatments as not smoked Allergies Penicillins Allergy (Verified 03/12/20 06:12) Rash Home Medications: Bupropion *Xl* [Wellbutrin XL*] 1 tab PO DAILY 03/08/20 Calcium Carbonate/Vitamin D3 [Calcium 500-Vit D3 10 Mcg Chew] 1 tab PO DAILY 03/08/20 Ipratropium [place] 1 inh IH Q6H PRN 03/08/20 Levalbuterol [Xopenex*] 1 inh IH Q6H PRN 03/08/20 Sodium Chloride For Inhalation [Hyper-Cristian] 3 ml IH Q6H PRN 03/08/20 Fluticasone/Umeclidin/Vilanter [Trelegy Ellipta 100-62.5-25] 1 each IH DAILY 30 Days #30 blst.w.dev 03/09/20 Nicotine [Nicoderm*] 21 mg TD DAILY #30 patch.td24 03/10/20 acetaZOLAMIDE [Diamox*] 250 mg PO DAILY #30 tab 03/10/20 ALPRAZolam [Xanax*] 0.5 mg PO TID PRN #30 tab 03/14/20 predniSONE [Prednisone*] 20 mg PO BID #20 tab 03/14/20 Albuterol Sulfate [Proair Hfa] 1 inh IH TID PRN 03/22/20 - Past Medical/Surgical History Diabetic: No -: COPD -: Hypertension -: CHF likely diastolic -: Depression with anxiety -: Tobacco abuse -: Alcohol abuse -: hx. of breat ca -: Right mastectomy -: back surgery Psychosocial/ Personal History: Patient lives at home alone, patient does have home health - Family History Mother Medical History: Cancer Notes: breast Father Medical History: Lung disease Notes: asbestosis - Social History Smoking Status: Current every day smoker Alcohol use: Yes CD- Drugs: No Caffeine use: Yes Place of Residence: Home Review of Systems 10-point ROS is otherwise unremarkable General: Weakness Respiratory: Shortness of Breath Physical Examination Temp Pulse Resp BP Pulse Ox 97.0 F 74 14 130/71 98 03/23/20 04:00 03/23/20 04:00 03/23/20 04:00 03/23/20 04:00 03/23/20 04:00 General: Alert, In no apparent distress, Oriented x3 Neck: Supple Respiratory: Expiratory wheezes Cardiovascular: No edema, Regular rate/rhythm, Normal S1 S2 Laboratory Data (last 24 hrs) 03/22/20 11:15: WBC 12.7 H, Hgb 13.5, Hct 42.0, Plt Count 316 03/22/20 11:15: Sodium 143, Potassium 4.3, BUN 14, Creatinine 0.57, Glucose 104, Magnesium 2.6 H - Problems (1) Respiratory failure with hypoxia and hypercapnia Current Visit: No Status: Acute Plan: Patient is 65 years of age recurrent hospital admissions admitted with worsening shortness of breath she has chronic hypercapnia compliant with her medications patient is on trilogy at home also uses nebulizers started her on bronchodilators here with [facility] albuterol theophylline can Zithromax for recurrent exacerbations labs reviewed chest x-ray clear Qualifiers: Chronicity: chronic Qualified Code(s): J96.11 - Chronic respiratory failure with hypoxia; J96.12 - Chronic respiratory failure with hypercapnia
[2020-03-23] MEDS ORDERED: ALBUTEROL 2.5 MG/3 ML NEB SOL NEB PRN (08:48)
[2020-03-23] MEDS ORDERED: predniSONE 20 MG TAB PO SCH (09:00)
[2020-03-23] MEDS ORDERED: VITAMIN D3 PO SCH (09:00)
[2020-03-23] MEDS ORDERED: CALCIUM CARBONATE PO SCH (09:00)
[2020-03-23] MEDS: acetaZOLAMIDE 250 MG TAB PO SCH (09:13)
[2020-03-23] MEDS: THEOPHYLLINE SR 100 MG TAB PO SCH ×2 (09:14→21:22)
[2020-03-23] MEDS: BUPROPION HCL XL 150 MG TAB PO SCH (09:14)
[2020-03-23] MEDS: AZITHROMYCIN 250 MG TAB PO SCH (09:14)
[2020-03-23] MEDS: NICOTINE 21 MG/PAT TD SCH (09:14)
[2020-03-23] MEDS: IPRATROPIUM BROM 0.5MG/2.5ML NEB SCH ×3 (09:15→20:20)
[2020-03-23] MEDS: ARFORMOTEROL TARTRATE 15 MCG/2 ML VIAL.NEB NEB SCH ×2 (09:15→20:20)
[2020-03-23] MEDS: ALPRAZOLAM 0.5 MG TABLET PO PRN ×2 (12:31→22:35)
--- NOTE | 2020-03-23 13:48 | P.PN ---
Subjective Date of Service: 03/23/20 Chief Complaint: Acute on chronic respiratory failure Subjective: Tolerating diet, Improving Review of Systems General: Unremarkable Eyes: Unremarkable Respiratory: Cough, Shortness of Breath Cardiovascular: Unremarkable Gastrointestinal: Unremarkable Genitourinary: Unremarkable Musculoskeletal: Unremarkable Integumentary: Unremarkable Neurological: Unremarkable Lymphatics: Unremarkable Physical Examination - Vital Signs Temperature: 98.3 F Blood Pressure: 131/78 Pulse: 87 Respirations: 19 Pulse Ox (%): 96 - Physical Exam General: Alert, In no apparent distress, Oriented x3 HEENT: Atraumatic, Normocephalic Neck: Supple Respiratory: Expiratory wheezes (Mild bilaterally) Cardiovascular: No edema Capillary refill: <2 Seconds Gastrointestinal: Normal bowel sounds Musculoskeletal: No erythema, No tenderness Integumentary: No significant lesion, No tenderness/swelling Neurological: Normal speech, Normal strength at 5/5 x4 extr, Normal tone Assessment & Plan Discharge Plan: Home Plan to discharge in: 24 Hours - Code Status/Comfort Care Code Status Assessed: Yes (Patient is full code) Physician Review: Patient Assessed, Agree with Above Assessment and Plan Physician Review Additional Text: Assessment Acute on chronic respiratory failure with respiratory acidosis and hypercapnia secondary to COPD-on home oxygen Tobacco abuse Depression Plan Acute on chronic respiratory failure with respiratory acidosis and hypercapnia secondary to end-stage COPD-on home oxygen: Patient placed on BiPAP while in the emergency department. Pulmonology has been consulted on this case. Patient will remain on BiPAP to promote reduction in CO2. Will continue with oral steroids, inhaled corticosteroid. Patient admits that she did not use her noninvasive ventilator at home the night prior to admission. States that she is unsure why she did not leave it on but that she does get very short of breath when she does not use it. Patient instructed that is very important she does use her noninvasive ventilator at all times. Advance care plan discussed with patient. Patient prefers that she goes back home and not to skilled facility. Patient would like additional help at home, working with social media content manager to determine what services best fit her needs. Patient otherwise stable at this time. Appreciate input from pulmonology. Patient has been started on Zithromax oral antibiotic daily and has had the awful and in other inhalers added. Will continue to monitor patient's respiratory status closely. Anticipate clinical improvement next 24-48 hr at which time patient to be discharged home. Tobacco abuse: Patient has cut down significantly from 40 cigarettes per day down to 3. Encouraged patient to completely abstain from cigarette smoking. Patient refused transdermal nicotine patch as she states and makes her cravings worse. Depression: Will obtain and continue patient's home medications. Critical Care: No Time Spent Managing Pts Care (In Minutes): 55
[2020-03-23] MEDS ORDERED: IPRATROPIUM BROM 0.5MG/2.5ML NEB SCH (14:00)
[2020-03-24] MEDS: ALBUTEROL 2.5 MG/3 ML NEB SOL NEB PRN ×3 (01:35→12:35)
[2020-03-24] MEDS: IPRATROPIUM BROM 0.5MG/2.5ML NEB SCH ×4 (01:35→12:59)
[2020-03-24 04:37] LABS: Absolute Lymphocytes (CBC) 1.7 K/uL (0.7-4.9); Basophils % 0.6 % (0-1.3); Hematocrit 33.3 % (36.0-45.0); MPV 7.7 fL (7.6-11.3); RBC Red Blood Cell Count 3.45 M/uL (3.86-4.86)
[2020-03-24 04:47] LABS: BUN Blood Urea Nitrogen 17 mg/dL (7-18); Bicarbonate 32 mmol/L (21-32); Glucose Level 88 mg/dL (74-106); Potassium 3.7 mmol/L (3.5-5.1); Sodium Level 144 mmol/L (136-145)
[2020-03-24] MEDS: ARFORMOTEROL TARTRATE 15 MCG/2 ML VIAL.NEB NEB SCH (07:15)
[2020-03-24] MEDS: NICOTINE 21 MG/PAT TD SCH (08:28)
[2020-03-24] MEDS: BUPROPION HCL XL 150 MG TAB PO SCH (08:28)
[2020-03-24] MEDS: acetaZOLAMIDE 250 MG TAB PO SCH (08:28)
[2020-03-24] MEDS: THEOPHYLLINE SR 100 MG TAB PO SCH (08:30)
[2020-03-24] MEDS: AZITHROMYCIN 250 MG TAB PO SCH (08:30)
[2020-03-24] MEDS: ENOXAPARIN 40 MG/0.4 ML SQ SCH (08:30)
[2020-03-24] MEDS ORDERED: CALCIUM CARB 500MG/VIT D 200 IU TAB PO SCH (09:00)
[2020-03-24] MEDS ORDERED: POTASSIUM CL SA 10 MEQ TAB PO ONE (09:00)
[2020-03-24 12:09] VITALS: BP 125/68; TEMP 97.1
--- NOTE | 2020-03-24 13:19 | P.DS ---
Admission Date: 03/22/20 Discharge Date: 03/24/20 Primary Care Provider: Reina Martins Disposition: DC HOME/HOME HEALTH CARE Discharge Condition: GOOD Reason for Admission: Acute on chronic respiratory failure Consultations: Reina Martins Procedures: Medical Problem List: Acute on chronic respiratory failure with respiratory acidosis and hypercapnia secondary to COPD exacerbation-on home oxygen/non invasive ventilator Tobacco abuse Depression with anxiety Brief History of Present Illness: 65-year-old female with history of end-stage COPD with chronic oxygen, and noninvasive ventilator. Patient presented with increased shortness of breath. Patient found to have acute on chronic respiratory failure. Patient admits noncompliance with oxygen at times and the ventilator. Patient admitted for further evaluation and treatment. Patient also admits to smoking. Hospital Course: Patient presented with acute on chronic respiratory failure with respiratory acidosis and hypercapnia. Patient with end-stage COPD on chronic oxygen and non invasive ventilator. Patient was seen and evaluated. Patient admitted noncompliance with some of her medications at times. Patient also still smokes regularly. With during the course of her stay patient seen by pulmonology. Medications were maximized. Additional medication included theophylline. At discharge patient back to baseline. At discharge she will continue with Jeff- Dur 200 mg 1 pill twice daily. Patient will also continue with her current COPD medications including Diamox 250 mg daily, albuterol/Atrovent 1 unit dose 3 times a day as needed for shortness of breath, Trelegy 1 puff daily, Diamox 250 mg daily. Patient will continue with oxygen to maintain sats above 90%. Patient will continue with non invasive ventilator during the day and night. Compliance with medications addressed in detail. Patient will also continue with prednisone 10 mg daily. Home health and physical therapy arranged prior to discharge. Recommend follow up with pulmonology in 1 week to monitor progress. Tobacco cessation addressed in detail. Patient understands this. Nicotine patch will be provided. Patient with depression and anxiety. Patient will continue with her current medication of Wellbutrin XL 150 mg once daily and Xanax 0.5 mg 3 times a day as needed for anxiety. Vital Signs/Physical Exam: Temp Pulse Resp BP Pulse Ox 97.1 F 102 H 20 125/68 97 03/24/20 12:00 03/24/20 12:00 03/24/20 12:00 03/24/20 12:00 03/24/20 12:00 General: Alert, In no apparent distress, Oriented x3, Cooperative HEENT: Atraumatic Neck: Supple Respiratory: Clear to auscultation bilaterally, Normal air movement Cardiovascular: Normal pulses, Regular rate/rhythm Gastrointestinal: Normal bowel sounds, Soft and benign, Non-distended, No rebound, No guarding Neurological: Normal speech, Normal strength at 5/5 x4 extr, Normal tone, Normal affect Laboratory Data at Discharge: WBC 10.1 K/uL (4.3-10.9) 03/24/20 03:37 Hgb 11.2 g/dL (12.0-15.0) L 03/24/20 03:37 Hct 33.3 % (36.0-45.0) L 03/24/20 03:37 Plt Count 231 K/uL (152-406) 03/24/20 03:37 Sodium 144 mmol/L (136-145) 03/24/20 03:37 Potassium 3.7 mmol/L (3.5-5.1) 03/24/20 03:37 BUN 17 mg/dL (7-18) 03/24/20 03:37 Creatinine 0.52 mg/dL (0.55-1.3) L 03/24/20 03:37 Glucose 88 mg/dL (74-106) 03/24/20 03:37 Magnesium 2.6 mg/dL (1.8-2.4) H 03/22/20 11:15 Home Medications: Bupropion *Xl* [Wellbutrin XL*] 1 tab PO DAILY 03/08/20 Calcium Carbonate/Vitamin D3 [Calcium 500-Vit D3 10 Mcg Chew] 1 tab PO DAILY 03/08/20 Ipratropium [place] 1 inh IH Q6H PRN 03/08/20 Levalbuterol [Xopenex*] 1 inh IH Q6H PRN 03/08/20 Sodium Chloride For Inhalation [Hyper-Cristian] 3 ml IH Q6H PRN 03/08/20 Fluticasone/Umeclidin/Vilanter [Trelegy Ellipta 100-62.5-25] 1 each IH DAILY 30 Days #30 blst.w.dev 03/09/20 Nicotine [Nicoderm*] 21 mg TD DAILY #30 patch.td24 03/10/20 acetaZOLAMIDE [Diamox*] 250 mg PO DAILY #30 tab 03/10/20 ALPRAZolam [Xanax*] 0.5 mg PO TID PRN #30 tab 03/14/20 Albuterol Sulfate [Proair Hfa] 1 inh IH TID PRN 03/22/20 Azithromycin Tab [Zithromax*] 250 mg PO DAILY #30 tab 03/24/20 Theophylline [Jeff-Dur*] 200 mg PO BID #120 tab 03/24/20 predniSONE [Deltasone*] 10 mg PO DAILY #30 tab 03/24/20 New Medications: predniSONE [Deltasone*] 10 mg PO DAILY #30 tab Theophylline [Jeff-Dur*] 200 mg PO BID #120 tab Azithromycin Tab [Zithromax*] 250 mg PO DAILY #30 tab Patient Discharge Instructions: 1. Recommend follow up with PCP in 1 week to follow this hospitalization. Recommend follow up with pulmonology in 1 week. 2. Patient presented with acute on chronic respiratory failure with respiratory acidosis and hypercapnia. Patient with end-stage COPD on chronic oxygen and non invasive ventilator. Patient was seen and evaluated. Patient admitted noncompliance with some of her medications at times. Patient also still smokes regularly. With during the course of her stay patient seen by pulmonology. Medications were maximized. Additional medication included theophylline. At discharge patient back to baseline. At discharge she will continue with Jeff- Dur 200 mg 1 pill twice daily. Patient will also continue with her current COPD medications including Diamox 250 mg daily, albuterol/Atrovent 1 unit dose 3 times a day as needed for shortness of breath, Trelegy 1 puff daily, Diamox 250 mg daily. Patient will continue with oxygen to maintain sats above 90%. Patient will continue with non invasive ventilator during the day and night. Compliance with medications addressed in detail. Patient will also continue with prednisone 20 mg 1 pill twice daily for 5 days then 1 pill once daily for 5 days. Home health and physical therapy arranged prior to discharge. Recommend follow up with pulmonology in 1 week to monitor progress. 3. Tobacco cessation addressed in detail. Patient understands this. Nicotine patch will be provided. 4. Patient with depression and anxiety. Patient will continue with her current medication of Wellbutrin XL 150 mg once daily and Xanax 0.5 mg 3 times a day as needed for anxiety. Diet: AHA Activity: Ad sandrine Time spent managing pt's care (in minutes): 55
[2020-03-24] MEDS: ALPRAZOLAM 0.5 MG TABLET PO PRN (13:22)
== END 2020-03-24 15:55 | disposition home health service (06) | DRG 190 ==
LOC: ER 10:47 → ERHOLD 13:09 → UNDOADMIN 13:22 → ERHOLD 13:22 → 2ND 14:55
PROVIDERS: ADMIT Family Medicine; ATTEND Family Medicine
DX: J44.1 Chronic obstructive pulmonary disease with (acute) exacerbation (principal); J96.22 Acute and chronic respiratory failure with hypercapnia; J96.21 Acute and chronic respiratory failure with hypoxia; E87.2 Acidosis; I50.32 Chronic diastolic (congestive) heart failure; F17.200 Nicotine dependence, unspecified, uncomplicated; F41.8 Other specified anxiety disorders; I11.0 Hypertensive heart disease with heart failure; Z60.2 Problems related to living alone; Z88.0 Allergy status to penicillin; Z85.3 Personal history of malignant neoplasm of breast; Z90.11 Acquired absence of right breast and nipple; Z99.81 Dependence on supplemental oxygen; Z91.19 Patient's noncompliance with other medical treatment and regimen; Z79.52 Long term (current) use of systemic steroids; Z79.899 Other long term (current) drug therapy
CPT/HCPCS: 36415; 71045; 80048; 82805; 83735; 84484; 85025; 93005; 94640; 94660; 94760; 96374; 97112; 97116; 97161; 97530; 99285; J1650; J7512; J7605

== ENCOUNTER 2023-09-27 17:46 | Inpatient (IN) | payer OTHER ==
--- OUTSIDE RECORDS SUMMARY | 2023-09-27 18:08 | XMS REPORT | Continuity of Care Document ---
Author Name Unknown Address [address] [facility] [address] [place] [address] [facility] thconnect Address [address] [facility] [address] [place] [address] Care Team Providers Care Water Inspector Name Role Phone Yasemin Dietrich MD Primary Care Physici an Ying Courtney Anavella Attending Cli nician Unavailable [id number] Attending Clinician Unavailable Yasemin Dietrich MD Attending Clinician Beau Vincent Attending Clinician Unavail able YASEMIN DIETRICH Attending Clinician Jacki vailable Doctor Unassigned, [place] Attending Clinician U Claudia Velez LMSW Attending Clinician [phone] Marge Hurst LMSW Attending Clinician YANNI JIM Attending Clinician Unavailable Yanni Jim MD Attending Clinician [phone] Krish HICKS, Ernestina Pierce Attending Clinician Unavail able Cain VASQUEZ, Barbara Attending Clinician [phone] Amy Gates MD Attending Clinician + [phone] AMY GATES Attending Clinician Unavailable Shmuel Mariscal DO Attending Clinician + [phone] JAVY JOSHI Attending Clinician Unavailfred Brenner, [facility] Attending Clinician UnavailJavy Phillips MD Attending Clinician + [phone] BIMAL KLEIN Attending Clinician Unavailable BIMAL KLEIN Attending Clinician Unavailable Gisel Beebe Attending Clinician Unavailable Bimal Klein DO Attending Clinician [phone] Marc HICKS, Mat Attending Clinician Unavailab zaki Smith MD, Joan Attending Clinician [phone] Manda Pederson RN Attending Clinician [phone] Bianka Hernandez MD Attending Clinician [phone] Kareem Sheikh MD Attending Clinician +[phone] KAREEM SHEIKH Attending Clinician Unavailable Kael Jackson MD Attending Clinician + [phone] Santino Diop MD Attending Clinician +[phone] SANTINO DIOP Attending Clinician Unavailable BARBARA BARLOW Attending Clinician Unavailable Ivana Paulson Attending Clinician [phone] Priscilla Alvarado RN Attending Clinician [phone] Eron Courtney, Eron Admitting Clinician U navailable [id number] Admitting Clinician Unavailable YANNI JIM Admitting Clinician Unavailable Barbara Barlow MD Admitting Clinician [phone] BARBARA BARLOW Admitting Clinician Unavailable Kareem Sheikh MD Admitting Clinician [phone] KAREEM SHEIKH Admitting Clinician Unavailable Santino Diop MD Admitting Clinician [phone] SANTINO DIOP Admitting Clinician Unavailable Payers Payer Name Policy Type Policy Number Effective Date Expirati on Date Source [facility] [id number] [facility]/[employer] MEDICARE ADVANTAGE [id number] 2020 00:00:00 MEDICAID [place] [id number] 2019 00:00:00 [facility] [id number] 2020 00:00:00 Problems Condition Name Condition Details Condition Category Status Onset Date Resolution Date Last Treatment Date Treating Clinician Comments Source Acute hypercapni c respirator y failure Acute hypercapni c respirator y failure Disease Active 3-16 00:00: 00 [facility] Acute encephalop athy Acute encephalop athy Disease Active 8-05 00:00: 00 [facility] Stage 4 very severe COPD by GOLD classifica tion Stage 4 very severe COPD by GOLD classifica tion Disease Active 7-16 00:00: 00 [facility] Acute on chronic respirator y failure Acute on chronic respirator y failure Disease Active 6- 00:00: 00 [facility] Respirator y failure Respirator y failure Disease Active 612 00:00: 00 [facility] Acute on chronic diastolic congestive heart failure Acute on chronic diastolic congestive heart failure Disease Active 6-06 00:00: 00 [facility] COPD with acute exacerbati on COPD with acute exacerbati on Disease Active 08 00:00: 00 [facility] Elevated troponin I level Elevated troponin I level Disease Active 01-28 00:00: 00 [facility] Coronary artery calcificat ion seen on CT scan Coronary artery calcificat ion seen on CT scan Disease Active 08 00:00: 00 [facility] TAY (dyspnea on exertion) TAY (dyspnea on exertion) Disease Active 08 00:00: 00 [facility] Elevated brain natriureti c peptide (BNP) level Elevated brain natriureti c peptide (BNP) level Disease Active 08 00:00: 00 [facility] Sinus tachycardi a Sinus tachycardi a Disease Active 1-14 00:00: 00 [facility] Anxiety about health Anxiety about health Disease Active 7-07 00:00: 00 [facility] Breast cancer Breast cancer Disease Active 3-20 00:00: 00 [facility] Mass of breast, right Mass of breast, right Disease Active 1-14 00:00: 00 [facility] COPD exacerbati on COPD exacerbati on Disease Active 10-05 00:00: 00 [facility] Tobacco abuse Tobacco abuse Disease Recurre nce 10-05 00:00: 00 [facility] Alcohol abuse Alcohol abuse Disease Recurre nce 10-05 00:00: 00 [facility] Chronic respirator y failure with hypoxia, on home O2 therapy Chronic respirator y failure with hypoxia, on home O2 therapy Disease Active [facility] Contact dermatitis and other eczema due to plants (except food) Contact dermatitis and other eczema due to plants (except food) Disease Active Overview: Formattin g of this note might be different from the original. poison mandy [facility] Contact dermatitis and other eczema due to plants (except food) Contact dermatitis and other eczema due to plants (except food) Disease Active Overview: Formattin g of this note might be different from the original. poison mandy [facility] Allergies, Adverse Reactions, Alerts Allergy Name Allergy Type Status Severity Reaction(s) Onset Date Inactive Date Treating Clinician Comments Source GENTAMIC IN DRUG INGREDI Active Hives 2021-09 0 00:00: 00 [facility] Gentamic in Propensi ty to adverse reaction s Active Hives 2021-09 0 00:00: 00 [facility] PENICILL INS Drug Class Active Rash 10-05 00:00: 00 [facility] Penicill ins Propensi ty to adverse reaction s Active Rash 10-05 00:00: 00 [facility] Penicill ins Propensi ty to adverse reaction s Active Rash 10-05 00:00: 00 [facility] Penicill ins Propensi ty to adverse reaction s Active Rash 10-05 00:00: 00 [facility] Social History Social Habit Start Date Stop Date Quantity Comments Source History SDOH Alcohol Frequency [facility] History SDOH Alcohol Std Drinks [facility] History SDOH Alcohol Binge [facility] Gender identity [facility] Sexual orientation [facility] History of tobacco use Cigarette Smoker [facility] Exposure to SARS-CoV-2 (event) 2023-01-05 00:00:00 2023-01-15 14:02:00 Not sure [facility] Tobacco use and exposure 2023-01-15 00:00:00 2023-01-15 00:00:00 Smokeless tobacco non-user [facility] History of Social function 2023-01-15 00:00:00 2023-01-15 00:00:00 [facility] Cigarettes smoked current (pack per day) - Reported 2023-01-15 00:00:00 2023-01-15 00:00:00 [facility] Cigarette pack-years 2023-01-15 00:00:00 2023-01-15 00:00:00 [facility] Alcohol intake 2023-01-15 00:00:00 2023-01-15 00:00:00 Ex-drinker (finding) [facility] Alcohol Comment 2023-01-15 00:00:00 2023-01-15 00:00:00 2 oz etoh 2x a week-"airport bottle of vodka and a ranch[place] every evening." [facility] History SDOH Financial 2019-10-06 00:00:00 2019-10-06 00:00:00 3 [facility] History SDOH Food Worry 2019-10-06 00:00:00 2019-10-06 00:00:00 1 [facility] History SDOH Food Scarcity 2019-10-06 00:00:00 2019-10-06 00:00:00 1 [facility] History SDOH Transport Med 2019-10-06 00:00:00 2019-10-06 00:00:00 1 [facility] History SDOH Transport Non-Med 2019-10-06 00:00:00 2019-10-06 00:00:00 1 [facility] Tobacco Comment 2019-10-05 00:00:00 2019-10-05 00:00:00 1/2 pack of cigarettes daily [facility] Sex Assigned At 1955 00:00:00 1955 00:00:00 [facility] Smoking Status Start Date Stop Date Source Ex-smoker 2023-01-15 00:00:00 2023-01-15 [facility]00[facility] daily 2020-02-24 00:00:00 [facility] Medications Ordered Medication Name Filled Medication Name Start Date Stop Date Current Medication? Ordering Clinician Indication Dosage Frequency Signature (SIG) Comments Components Source predniSONE 10 mg tablet 01-15 15:44: 23 01-15 00:00 :00 No 10mg Take 1 tablet by mouth in the morning. [facility] lisinopriL 10 mg tablet 01-15 15:44: 23 01-15 00:00 :00 No 5mg Take 0.5 tablets by mouth in the morning. [facility] predniSONE 10 mg tablet 01-15 15:44: 23 01-15 00:00 :00 No 10mg Take 1 tablet by mouth in the morning. [facility] lisinopriL 10 mg tablet 01-15 15:44: 23 01-15 00:00 :00 No 5mg Take 0.5 tablets by mouth in the morning. [facility] hydroCHLORO thiazide 12.5 mg capsule 01-15 15:30: 01-15 00:00 :00 No 12.5mg Take 1 capsule by mouth in the morning. [facility] hydroCHLORO thiazide 12.5 mg capsule 01-15 15:30: 01-15 00:00 :00 No 12.5mg Take 1 capsule by mouth in the morning. [facility] levalbutero l 0.63 mg/3 mL nebulizer solution 01-15 00:00: 00 Yes [id number] .63mg Inhale 0.63 mg every 6 (six) hours as needed for Wheezing or Shortness of Breath. [facility] lisinopriL 10 mg tablet 01-15 00:00: 00 Yes [id number] 10mg Take 1 tablet by mouth in the morning. [facility] furosemide 40 mg tablet 01-15 00:00: 00 Yes [id number] 40mg Take 1 tablet by mouth once daily as needed for Other (edema). [facility] predniSONE 10 mg tablet 01-15 00:00: 00 Yes [id number] 10mg Take 1 tablet by mouth in the morning. [facility] buPROPion XL (WELLBUTRIN XL) 150 mg 24 hr tablet 01-15 00:00: 00 Yes [id number] 150mg Take 1 tablet by mouth in the morning. [facility] sodium chloride 0.9 % nebulizer solution 01-15 00:00: 00 Yes [id number] 3mL Use 3 mL as directed every 6 (six) hours as needed for Wheezing (cough/con gestion). [facility] fluticasone -umeclidin- vilanter (TRELEGY ELLIPTA) 100-62.5-25 mcg DsDv 01-15 00:00: 00 Yes [id number] 1{puff} Inhale 1 Puff in the morning. [facility] levalbutero l 0.63 mg/3 mL nebulizer solution 01-15 00:00: 00 Yes [id number] .63mg Inhale 0.63 mg every 6 (six) hours as needed for Wheezing or Shortness of Breath. [facility] lisinopriL 10 mg tablet 01-15 00:00: 00 Yes [id number] 10mg Take 1 tablet by mouth in the morning. [facility] furosemide 40 mg tablet 01-15 00:00: 00 Yes [id number] 40mg Take 1 tablet by mouth once daily as needed for Other (edema). [facility] predniSONE 10 mg tablet 01-15 00:00: 00 Yes [id number] 10mg Take 1 tablet by mouth in the morning. [facility] buPROPion XL (WELLBUTRIN XL) 150 mg 24 hr tablet 01-15 00:00: 00 Yes [id number] 150mg Take 1 tablet by mouth in the morning. [facility] sodium chloride 0.9 % nebulizer solution 01-15 00:00: 00 Yes [id number] 3mL Use 3 mL as directed every 6 (six) hours as needed for Wheezing (cough/con gestion). [facility] fluticasone -umeclidin- vilanter (TRELEGY ELLIPTA) 100-62.5-25 mcg DsDv 01-15 00:00: 00 Yes [id number] 1{puff} Inhale 1 Puff in the morning. [facility] levalbutero l 0.63 mg/3 mL nebulizer solution 01-15 00:00: 00 Yes [id number] .63mg Inhale 0.63 mg every 6 (six) hours as needed for Wheezing or Shortness of Breath. [facility] lisinopriL 10 mg tablet 01-15 00:00: 00 Yes [id number] 10mg Take 1 tablet by mouth in the morning. [facility] furosemide 40 mg tablet 01-15 00:00: 00 Yes [id number] 40mg Take 1 tablet by mouth once daily as needed for Other (edema). [facility] predniSONE 10 mg tablet 01-15 00:00: 00 Yes [id number] 10mg Take 1 tablet by mouth in the morning. [facility] buPROPion XL (WELLBUTRIN XL) 150 mg 24 hr tablet 01-15 00:00: 00 Yes [id number] 150mg Take 1 tablet by mouth in the morning. [facility] sodium chloride 0.9 % nebulizer solution 01-15 00:00: 00 Yes [id number] 3mL Use 3 mL as directed every 6 (six) hours as needed for Wheezing (cough/con gestion). [facility] fluticasone -umeclidin- vilanter (TRELEGY ELLIPTA) 100-62.5-25 mcg DsDv 01-15 00:00: 00 Yes [id number] 1{puff} Inhale 1 Puff in the morning. [facility] levalbutero l 0.63 mg/3 mL nebulizer solution 01-15 00:00: 00 Yes [id number] .63mg Inhale 0.63 mg every 6 (six) hours as needed for Wheezing or Shortness of Breath. [facility] lisinopriL 10 mg tablet 01-15 00:00: 00 Yes [id number] 10mg Take 1 tablet by mouth in the morning. [facility] furosemide 40 mg tablet 01-15 00:00: 00 Yes [id number] 40mg Take 1 tablet by mouth once daily as needed for Other (edema). [facility] predniSONE 10 mg tablet 01-15 00:00: 00 Yes [id number] 10mg Take 1 tablet by mouth in the morning. [facility] buPROPion XL (WELLBUTRIN XL) 150 mg 24 hr tablet 01-15 00:00: 00 Yes [id number] 150mg Take 1 tablet by mouth in the morning. [facility] sodium chloride 0.9 % nebulizer solution 01-15 00:00: 00 Yes [id number] 3mL Use 3 mL as directed every 6 (six) hours as needed for Wheezing (cough/con gestion). [facility] fluticasone -umeclidin- vilanter (TRELEGY ELLIPTA) 100-62.5-25 mcg DsDv 01-15 00:00: 00 Yes [id number] 1{puff} Inhale 1 Puff in the morning. [facility] levalbutero l 0.63 mg/3 mL nebulizer solution 01-15 00:00: 00 Yes [id number] .63mg Inhale 0.63 mg every 6 (six) hours as needed for Wheezing or Shortness of Breath. [facility] lisinopriL 10 mg tablet 01-15 00:00: 00 Yes [id number] 10mg Take 1 tablet by mouth in the morning. [facility] furosemide 40 mg tablet 01-15 00:00: 00 Yes [id number] 40mg Take 1 tablet by mouth once daily as needed for Other (edema). [facility] predniSONE 10 mg tablet 01-15 00:00: 00 Yes [id number] 10mg Take 1 tablet by mouth in the morning. [facility] buPROPion XL (WELLBUTRIN XL) 150 mg 24 hr tablet 01-15 00:00: 00 Yes [id number] 150mg Take 1 tablet by mouth in the morning. [facility] sodium chloride 0.9 % nebulizer solution 01-15 00:00: 00 Yes [id number] 3mL Use 3 mL as directed every 6 (six) hours as needed for Wheezing (cough/con gestion). [facility] fluticasone -umeclidin- vilanter (TRELEGY ELLIPTA) 100-62.5-25 mcg DsDv 01-15 00:00: 00 Yes [id number] 1{puff} Inhale 1 Puff in the morning. [facility] levalbutero l 0.63 mg/3 mL nebulizer solution 01-15 00:00: 00 Yes [id number] .63mg Inhale 0.63 mg every 6 (six) hours as needed for Wheezing or Shortness of Breath. [facility] lisinopriL 10 mg tablet 01-15 00:00: 00 Yes [id number] 10mg Take 1 tablet by mouth in the morning. [facility] furosemide 40 mg tablet 01-15 00:00: 00 Yes [id number] 40mg Take 1 tablet by mouth once daily as needed for Other (edema). [facility] predniSONE 10 mg tablet 01-15 00:00: 00 Yes [id number] 10mg Take 1 tablet by mouth in the morning. [facility] buPROPion XL (WELLBUTRIN XL) 150 mg 24 hr tablet 01-15 00:00: 00 Yes [id number] 150mg Take 1 tablet by mouth in the morning. [facility] sodium chloride 0.9 % nebulizer solution 01-15 00:00: 00 Yes [id number] 3mL Use 3 mL as directed every 6 (six) hours as needed for Wheezing (cough/con gestion). [facility] fluticasone -umeclidin- vilanter (TRELEGY ELLIPTA) 100-62.5-25 mcg DsDv 01-15 00:00: 00 Yes [id number] 1{puff} Inhale 1 Puff in the morning. [facility] levalbutero l 0.63 mg/3 mL nebulizer solution 01-15 00:00: 00 Yes [id number] .63mg Inhale 0.63 mg every 6 (six) hours as needed for Wheezing or Shortness of Breath. [facility] lisinopriL 10 mg tablet 01-15 00:00: 00 Yes [id number] 10mg Take 1 tablet by mouth in the morning. [facility] furosemide 40 mg tablet 01-15 00:00: 00 Yes [id number] 40mg Take 1 tablet by mouth once daily as needed for Other (edema). [facility] predniSONE 10 mg tablet 01-15 00:00: 00 Yes [id number] 10mg Take 1 tablet by mouth in the morning. [facility] buPROPion XL (WELLBUTRIN XL) 150 mg 24 hr tablet 01-15 00:00: 00 Yes [id number] 150mg Take 1 tablet by mouth in the morning. [facility] sodium chloride 0.9 % nebulizer solution 01-15 00:00: 00 Yes [id number] 3mL Use 3 mL as directed every 6 (six) hours as needed for Wheezing (cough/con gestion). [facility] fluticasone -umeclidin- vilanter (TRELEGY ELLIPTA) 100-62.5-25 mcg DsDv 01-15 00:00: 00 Yes [id number] 1{puff} Inhale 1 Puff in the morning. [facility] levalbutero l 0.63 mg/3 mL nebulizer solution 01-15 00:00: 00 Yes [id number] .63mg Inhale 0.63 mg every 6 (six) hours as needed for Wheezing or Shortness of Breath. [facility] lisinopriL 10 mg tablet 01-15 00:00: 00 Yes [id number] 10mg Take 1 tablet by mouth in the morning. [facility] furosemide 40 mg tablet 01-15 00:00: 00 Yes [id number] 40mg Take 1 tablet by mouth once daily as needed for Other (edema). [facility] predniSONE 10 mg tablet 01-15 00:00: 00 Yes [id number] 10mg Take 1 tablet by mouth in the morning. [facility] buPROPion XL (WELLBUTRIN XL) 150 mg 24 hr tablet 01-15 00:00: 00 Yes [id number] 150mg Take 1 tablet by mouth in the morning. [facility] sodium chloride 0.9 % nebulizer solution 01-15 00:00: 00 Yes [id number] 3mL Use 3 mL as directed every 6 (six) hours as needed for Wheezing (cough/con gestion). [facility] fluticasone -umeclidin- vilanter (TRELEGY ELLIPTA) 100-62.5-25 mcg DsDv 01-15 00:00: 00 Yes [id number] 1{puff} Inhale 1 Puff in the morning. [facility] levalbutero l 0.63 mg/3 mL nebulizer solution 01-15 00:00: 00 Yes [id number] .63mg Inhale 0.63 mg every 6 (six) hours as needed for Wheezing or Shortness of Breath. [facility] lisinopriL 10 mg tablet 01-15 00:00: 00 Yes [id number] 10mg Take 1 tablet by mouth in the morning. [facility] furosemide 40 mg tablet 01-15 00:00: 00 Yes [id number] 40mg Take 1 tablet by mouth once daily as needed for Other (edema). [facility] predniSONE 10 mg tablet 01-15 00:00: 00 Yes [id number] 10mg Take 1 tablet by mouth in the morning. [facility] buPROPion XL (WELLBUTRIN XL) 150 mg 24 hr tablet 01-15 00:00: 00 Yes [id number] 150mg Take 1 tablet by mouth in the morning. [facility] sodium chloride 0.9 % nebulizer solution 01-15 00:00: 00 Yes [id number] 3mL Use 3 mL as directed every 6 (six) hours as needed for Wheezing (cough/con gestion). [facility] fluticasone -umeclidin- vilanter (TRELEGY ELLIPTA) 100-62.5-25 mcg DsDv 01-15 00:00: 00 Yes [id number] 1{puff} Inhale 1 Puff in the morning. [facility] levalbutero l 0.63 mg/3 mL nebulizer solution 01-15 00:00: 00 Yes [id number] .63mg Inhale 0.63 mg every 6 (six) hours as needed for Wheezing or Shortness of Breath. [facility] lisinopriL 10 mg tablet 01-15 00:00: 00 Yes [id number] 10mg Take 1 tablet by mouth in the morning. [facility] furosemide 40 mg tablet 01-15 00:00: 00 Yes [id number] 40mg Take 1 tablet by mouth once daily as needed for Other (edema). [facility] predniSONE 10 mg tablet 01-15 00:00: 00 Yes [id number] 10mg Take 1 tablet by mouth in the morning. [facility] buPROPion XL (WELLBUTRIN XL) 150 mg 24 hr tablet 01-15 00:00: 00 Yes [id number] 150mg Take 1 tablet by mouth in the morning. [facility] sodium chloride 0.9 % nebulizer solution 01-15 00:00: 00 Yes [id number] 3mL Use 3 mL as directed every 6 (six) hours as needed for Wheezing (cough/con gestion). [facility] fluticasone -umeclidin- vilanter (TRELEGY ELLIPTA) 100-62.5-25 mcg DsDv 01-15 00:00: 00 Yes [id number] 1{puff} Inhale 1 Puff in the morning. [facility] levalbutero l 0.63 mg/3 mL nebulizer solution 01-15 00:00: 00 Yes [id number] .63mg Inhale 0.63 mg every 6 (six) hours as needed for Wheezing or Shortness of Breath. [facility] lisinopriL 10 mg tablet 01-15 00:00: 00 Yes [id number] 10mg Take 1 tablet by mouth in the morning. [facility] furosemide 40 mg tablet 01-15 00:00: 00 Yes [id number] 40mg Take 1 tablet by mouth once daily as needed for Other (edema). [facility] predniSONE 10 mg tablet 01-15 00:00: 00 Yes [id number] 10mg Take 1 tablet by mouth in the morning. [facility] buPROPion XL (WELLBUTRIN XL) 150 mg 24 hr tablet 01-15 00:00: 00 Yes [id number] 150mg Take 1 tablet by mouth in the morning. [facility] sodium chloride 0.9 % nebulizer solution 01-15 00:00: 00 Yes [id number] 3mL Use 3 mL as directed every 6 (six) hours as needed for Wheezing (cough/con gestion). [facility] fluticasone -umeclidin- vilanter (TRELEGY ELLIPTA) 100-62.5-25 mcg DsDv 01-15 00:00: 00 Yes [id number] 1{puff} Inhale 1 Puff in the morning. [facility] iopamidol (ISOVUE 370-500 mL) injection 75 mL 2021-09 08:30: 00 07-24 08:30 :00 No [id number] 75mL 75 mL, Intravenou s, ONCE, 1 dose, On Sat07/24/22 at 0330, Routine [facility] ketorolac (TORADOL) injection 30 mg 2021-09 11:30: 00 07-22 10:30 :00 No 30mg 30 mg, Intramuscu lar, ONCE, 1 dose, On Sat07/22/22 at 0630, Routine [facility] ALPRAZolam 0.5 mg tablet 06-15 15:29: 47 06-15 00:00 :00 No .5mg Take 0.5 mg by mouth 3 (three) times daily. [facility] ALPRAZolam 0.5 mg tablet 06-15 15:29: 47 06-15 00:00 :00 No .5mg Take 0.5 mg by mouth 3 (three) times daily. [facility] ALPRAZolam 0.5 mg tablet 06-15 15:29: 47 06-15 00:00 :00 No .5mg Take 0.5 mg by mouth 3 (three) times daily. [facility] morphine sulfate (MORPHINE CONCENTRATE ) 20 mg/mL Syrg 06-15 15:29: 34 06-15 00:00 :00 No .1mg Take 0.1 mg by mouth 2 (two) times daily. Prefers 0.3 [facility] morphine sulfate (MORPHINE CONCENTRATE ) 20 mg/mL Syrg 06-15 15:29: 34 06-15 00:00 :00 No .1mg Take 0.1 mg by mouth 2 (two) times daily. Prefers 0.3 [facility] morphine sulfate (MORPHINE CONCENTRATE ) 20 mg/mL Syrg 06-15 15:29: 34 06-15 00:00 :00 No .1mg Take 0.1 mg by mouth 2 (two) times daily. Prefers 0.3 [facility] lisinopriL 10 mg tablet 06-15 15:08: 31 Yes 5mg Take 5 mg by mouth daily. [facility] lisinopriL 10 mg tablet 06-15 15:08: 31 Yes 5mg Take 5 mg by mouth daily. [facility] lisinopriL 10 mg tablet 06-15 15:08: 31 Yes 5mg Take 5 mg by mouth daily. [facility] lisinopriL 10 mg tablet 06-15 15:08: 31 Yes 5mg Take 5 mg by mouth daily. [facility] lisinopriL 10 mg tablet 06-15 15:08: 31 Yes 5mg Take 5 mg by mouth daily. [facility] lisinopriL 10 mg tablet 06-15 15:08: 31 Yes 5mg Take 5 mg by mouth daily. [facility] lisinopriL 10 mg tablet 06-15 15:08: 31 Yes 5mg Take 5 mg by mouth daily. [facility] lisinopriL 10 mg tablet 06-15 15:08: 31 Yes 5mg Take 5 mg by mouth daily. [facility] lisinopriL 10 mg tablet 06-15 15:08: 31 Yes 5mg Take 5 mg by mouth daily. [facility] lisinopriL 10 mg tablet 06-15 15:08: 31 Yes 5mg Take 5 mg by mouth daily. [facility] lisinopriL 10 mg tablet 06-15 15:08: 31 Yes 5mg Take 5 mg by mouth daily. [facility] lisinopriL 10 mg tablet 06-15 15:08: 31 Yes 5mg Take 5 mg by mouth daily. [facility] lisinopriL 10 mg tablet 06-15 15:08: 31 Yes 5mg Take 5 mg by mouth daily. [facility] lisinopriL 10 mg tablet 06-15 15:08: 31 Yes 5mg Take 5 mg by mouth daily. [facility] lisinopriL 10 mg tablet 06-15 15:08: 31 Yes 5mg Take 5 mg by mouth daily. [facility] lisinopriL 10 mg tablet 06-15 15:08: 31 Yes 5mg Take 5 mg by mouth daily. [facility] lisinopriL 10 mg tablet 0 06-15 15:08: 31 Yes 5mg Take 5 mg by mouth daily. [facility] lisinopriL 10 mg tablet 06-15 15:08: 31 Yes 5mg Take 5 mg by mouth daily. [facility] lisinopriL 10 mg tablet 06-15 15:08: 31 Yes 5mg Take 5 mg by mouth daily. [facility] lisinopriL 10 mg tablet 06-15 15:08: 31 Yes 5mg Take 5 mg by mouth daily. [facility] lisinopriL 10 mg tablet 06-15 15:08: 31 Yes 5mg Take 5 mg by mouth daily. [facility] lisinopriL 10 mg tablet 06-15 15:08: 31 Yes 5mg Take 5 mg by mouth daily. [facility] lisinopriL 10 mg tablet 06-15 15:08: 31 Yes 5mg Take 5 mg by mouth daily. [facility] lisinopriL 10 mg tablet 06-15 15:08: 31 Yes 5mg Take 5 mg by mouth daily. [facility] lisinopriL 10 mg tablet 06-15 15:08: 31 Yes 5mg Take 5 mg by mouth daily. [facility] lisinopriL 10 mg tablet 06-15 15:08: 31 Yes 5mg Take 5 mg by mouth daily. [facility] lisinopriL 10 mg tablet 06-15 15:08: 31 Yes 5mg Take 5 mg by mouth daily. [facility] lisinopriL 10 mg tablet 06-15 15:08: 31 Yes 5mg Take 5 mg by mouth daily. [facility] lisinopriL 10 mg tablet 06-15 15:08: 31 Yes 5mg Take 5 mg by mouth daily. [facility] lisinopriL 10 mg tablet 06-15 15:08: 31 Yes 5mg Take 5 mg by mouth daily. [facility] predniSONE 10 mg tablet 06-15 15:07: 03 Yes 10mg Take 10 mg by mouth daily. [facility] predniSONE 10 mg tablet 06-15 15:07: 03 Yes 10mg Take 10 mg by mouth daily. [facility] predniSONE 10 mg tablet 06-15 15:07: 03 Yes 10mg Take 10 mg by mouth daily. [facility] predniSONE 10 mg tablet 06-15 15:07: 03 Yes 10mg Take 10 mg by mouth daily. [facility] predniSONE 10 mg tablet 06-15 15:07: 03 Yes 10mg Take 10 mg by mouth daily. [facility] predniSONE 10 mg tablet 06-15 15:07: 03 Yes 10mg Take 10 mg by mouth daily. [facility] predniSONE 10 mg tablet 06-15 15:07: 03 Yes 10mg Take 10 mg by mouth daily. [facility] predniSONE 10 mg tablet 06-15 15:07: 03 Yes 10mg Take 10 mg by mouth daily. [facility] predniSONE 10 mg tablet 06-15 15:07: 03 Yes 10mg Take 10 mg by mouth daily. [facility] predniSONE 10 mg tablet 06-15 15:07: 03 Yes 10mg Take 10 mg by mouth daily. [facility] predniSONE 10 mg tablet 06-15 15:07: 03 Yes 10mg Take 10 mg by mouth daily. [facility] predniSONE 10 mg tablet 06-15 15:07: 03 Yes 10mg Take 10 mg by mouth daily. [facility] predniSONE 10 mg tablet 06-15 15:07: 03 Yes 10mg Take 10 mg by mouth daily. [facility] predniSONE 10 mg tablet 06-15 15:07: 03 Yes 10mg Take 10 mg by mouth daily. [facility] predniSONE 10 mg tablet 06-15 15:07: 03 Yes 10mg Take 10 mg by mouth daily. [facility] predniSONE 10 mg tablet 06-15 15:07: 03 Yes 10mg Take 10 mg by mouth daily. [facility] predniSONE 10 mg tablet 06-15 15:07: 03 Yes 10mg Take 10 mg by mouth daily. [facility] predniSONE 10 mg tablet 06-15 15:07: 03 Yes 10mg Take 10 mg by mouth daily. [facility] predniSONE 10 mg tablet 06-15 15:07: 03 Yes 10mg Take 10 mg by mouth daily. [facility] predniSONE 10 mg tablet 06-15 15:07: 03 Yes 10mg Take 10 mg by mouth daily. [facility] predniSONE 10 mg tablet 06-15 15:07: 03 Yes 10mg Take 10 mg by mouth daily. [facility] predniSONE 10 mg tablet 06-15 15:07: 03 Yes 10mg Take 10 mg by mouth daily. [facility] predniSONE 10 mg tablet 06-15 15:07: 03 Yes 10mg Take 10 mg by mouth daily. [facility] predniSONE 10 mg tablet 06-15 15:07: 03 Yes 10mg Take 10 mg by mouth daily. [facility] predniSONE 10 mg tablet 06-15 15:07: 03 Yes 10mg Take 10 mg by mouth daily. [facility] predniSONE 10 mg tablet 06-15 15:07: 03 Yes 10mg Take 10 mg by mouth daily. [facility] predniSONE 10 mg tablet 06-15 15:07: 03 Yes 10mg Take 10 mg by mouth daily. [facility] predniSONE 10 mg tablet 06-15 15:07: 03 Yes 10mg Take 10 mg by mouth daily. [facility] predniSONE 10 mg tablet 06-15 15:07: 03 Yes 10mg Take 10 mg by mouth daily. [facility] predniSONE 10 mg tablet 06-15 15:07: 03 Yes 10mg Take 10 mg by mouth daily. [facility] hydroCHLORO thiazide 12.5 mg capsule 06-15 15:06: 40 Yes 12.5mg Take 12.5 mg by mouth daily. [facility] hydroCHLORO thiazide 12.5 mg capsule 06-15 15:06: 40 Yes 12.5mg Take 12.5 mg by mouth daily. [facility] hydroCHLORO thiazide 12.5 mg capsule 06-15 15:06: 40 Yes 12.5mg Take 12.5 mg by mouth daily. [facility] hydroCHLORO thiazide 12.5 mg capsule 06-15 15:06: 40 Yes 12.5mg Take 12.5 mg by mouth daily. [facility] hydroCHLORO thiazide 12.5 mg capsule 06-15 15:06: 40 Yes 12.5mg Take 12.5 mg by mouth daily. [facility] hydroCHLORO thiazide 12.5 mg capsule 06-15 15:06: 40 Yes 12.5mg Take 12.5 mg by mouth daily. [facility] hydroCHLORO thiazide 12.5 mg capsule 06-15 15:06: 40 Yes 12.5mg Take 12.5 mg by mouth daily. [facility] hydroCHLORO thiazide 12.5 mg capsule 06-15 15:06: 40 Yes 12.5mg Take 12.5 mg by mouth daily. [facility] hydroCHLORO thiazide 12.5 mg capsule 06-15 15:06: 40 Yes 12.5mg Take 12.5 mg by mouth daily. [facility] hydroCHLORO thiazide 12.5 mg capsule 06-15 15:06: 40 Yes 12.5mg Take 12.5 mg by mouth daily. [facility] hydroCHLORO thiazide 12.5 mg capsule 06-15 15:06: 40 Yes 12.5mg Take 12.5 mg by mouth daily. [facility] hydroCHLORO thiazide 12.5 mg capsule 06-15 15:06: 40 Yes 12.5mg Take 12.5 mg by mouth daily. [facility] hydroCHLORO thiazide 12.5 mg capsule 06-15 15:06: 40 Yes 12.5mg Take 12.5 mg by mouth daily. [facility] hydroCHLORO thiazide 12.5 mg capsule 06-15 15:06: 40 Yes 12.5mg Take 12.5 mg by mouth daily. [facility] hydroCHLORO thiazide 12.5 mg capsule 06-15 15:06: 40 Yes 12.5mg Take 12.5 mg by mouth daily. [facility] hydroCHLORO thiazide 12.5 mg capsule 06-15 15:06: 40 Yes 12.5mg Take 12.5 mg by mouth daily. [facility] hydroCHLORO thiazide 12.5 mg capsule 06-15 15:06: 40 Yes 12.5mg Take 12.5 mg by mouth daily. [facility] hydroCHLORO thiazide 12.5 mg capsule 06-15 15:06: 40 Yes 12.5mg Take 12.5 mg by mouth daily. [facility] hydroCHLORO thiazide 12.5 mg capsule 06-15 15:06: 40 Yes 12.5mg Take 12.5 mg by mouth daily. [facility] hydroCHLORO thiazide 12.5 mg capsule 06-15 15:06: 40 Yes 12.5mg Take 12.5 mg by mouth daily. [facility] hydroCHLORO thiazide 12.5 mg capsule 06-15 15:06: 40 Yes 12.5mg Take 12.5 mg by mouth daily. [facility] hydroCHLORO thiazide 12.5 mg capsule 06-15 15:06: 40 Yes 12.5mg Take 12.5 mg by mouth daily. [facility] hydroCHLORO thiazide 12.5 mg capsule 06-15 15:06: 40 Yes 12.5mg Take 12.5 mg by mouth daily. [facility] hydroCHLORO thiazide 12.5 mg capsule 06-15 15:06: 40 Yes 12.5mg Take 12.5 mg by mouth daily. [facility] hydroCHLORO thiazide 12.5 mg capsule 06-15 15:06: 40 Yes 12.5mg Take 12.5 mg by mouth daily. [facility] hydroCHLORO thiazide 12.5 mg capsule 06-15 15:06: 40 Yes 12.5mg Take 12.5 mg by mouth daily. [facility] hydroCHLORO thiazide 12.5 mg capsule 06-15 15:06: 40 Yes 12.5mg Take 12.5 mg by mouth daily. [facility] hydroCHLORO thiazide 12.5 mg capsule 06-15 15:06: 40 Yes 12.5mg Take 12.5 mg by mouth daily. [facility] hydroCHLORO thiazide 12.5 mg capsule 06-15 15:06: 40 Yes 12.5mg Take 12.5 mg by mouth daily. [facility] hydroCHLORO thiazide 12.5 mg capsule 06-15 15:06: 40 Yes 12.5mg Take 12.5 mg by mouth daily. [facility] furosemide 40 mg tablet 06-15 00:00: 00 Yes [id number] 40mg Take 1 tablet by mouth daily. [facility] ALPRAZolam 0.5 mg tablet 06-15 00:00: 00 Yes [id number] .25mg Take 0.5 tablets by mouth 3 (three) times daily. [facility] morpHINE CONCENTRATE 100 mg/5 mL (20 mg/mL) oral solution 06-15 00:00: 00 Yes [id number] 6mg Take 0.3 mL by mouth 2 (two) times daily. Indication s: chronic pain [facility] furosemide 40 mg tablet 06-15 00:00: 00 Yes [id number] 40mg Take 1 tablet by mouth daily. [facility] ALPRAZolam 0.5 mg tablet 06-15 00:00: 00 Yes [id number] .25mg Take 0.5 tablets by mouth 3 (three) times daily. [facility] morpHINE CONCENTRATE 100 mg/5 mL (20 mg/mL) oral solution 06-15 00:00: 00 Yes [id number] 6mg Take 0.3 mL by mouth 2 (two) times daily. Indication s: chronic pain [facility] furosemide 40 mg tablet 06-15 00:00: 00 Yes [id number] 40mg Take 1 tablet by mouth daily. [facility] ALPRAZolam 0.5 mg tablet 06-15 00:00: 00 Yes [id number] .25mg Take 0.5 tablets by mouth 3 (three) times daily. [facility] 100 mg/5 mL (20 mg/mL) oral solution 06-15 00:00: 00 Yes [id number] 2mg Take 0.1 mL by mouth 2 (two) times daily. Indication s: [facility] mg tablet 06-15 00:00: 00 Yes [id number] 40mg Take 1 tablet by mouth daily. [facility] ALPR[facility]am 0.5 mg tablet 06-15 00:00: 00 Yes [id number] .25mg Take 0.5 tablets by mouth 3 (three) times daily. [facility] morpHINE CONCENTRATE 100 mg/5 mL (20 mg/mL) oral solution 06-15 00:00: 00 Yes [id number] 2mg Take 0.1 mL by mouth 2 (two) times daily. Indication s: [facility] mg tablet 06-15 00:00: 00 Yes [id number] 40mg Take 1 tablet by mouth daily. [facility] ALPR[facility]am 0.5 mg tablet 06-15 00:00: 00 Yes [id number] .25mg Take 0.5 tablets by mouth 3 (three) times daily. [facility] morpHINE CONCENTRATE 100 mg/5 mL (20 mg/mL) oral solution 06-15 00:00: 00 Yes [id number] 2mg Take 0.1 mL by mouth 2 (two) times daily. Indication s: [facility] mg tablet 06-15 00:00: 00 Yes [id number] 40mg Take 1 tablet by mouth daily. [facility] ALPR[facility]am 0.5 mg tablet 06-15 00:00: 00 Yes [id number] .25mg Take 0.5 tablets by mouth 3 (three) times daily. [facility] furosemide 40 mg tablet 06-15 00:00: 00 Yes [id number] 40mg Take 1 tablet by mouth daily. [facility] ALPRAZolam 0.5 mg tablet 06-15 00:00: 00 Yes [id number] .25mg Take 0.5 tablets by mouth 3 (three) times daily. [facility] morpHINE CONCENTRATE 100 mg/5 mL (20 mg/mL) oral solution 06-15 00:00: 00 Yes [id number] 2mg Take 0.1 mL by mouth 2 (two) times daily. Indication s: chronic pain [facility] furosemide 40 mg tablet 06-15 00:00: 00 Yes [id number] 40mg Take 1 tablet by mouth daily. [facility] ALPRAZolam 0.5 mg tablet 06-15 00:00: 00 Yes [id number] .25mg Take 0.5 tablets by mouth 3 (three) times daily. [facility] furosemide 40 mg tablet 06-15 00:00: 00 Yes [id number] 40mg Take 1 tablet by mouth daily. [facility] ALPRAZolam 0.5 mg tablet 06-15 00:00: 00 Yes [id number] .25mg Take 0.5 tablets by mouth 3 (three) times daily. [facility] morpHINE CONCENTRATE 100 mg/5 mL (20 mg/mL) oral solution 06-15 00:00: 00 Yes [id number] 2mg Take 0.1 mL by mouth 2 (two) times daily. Indication s: chronic pain [facility] furosemide 40 mg tablet 06-15 00:00: 00 Yes [id number] 40mg Take 1 tablet by mouth daily. [facility] ALPRAZolam 0.5 mg tablet 06-15 00:00: 00 Yes [id number] .25mg Take 0.5 tablets by mouth 3 (three) times daily. [facility] morpHINE CONCENTRATE 100 mg/5 mL (20 mg/mL) oral solution 06-15 00:00: 00 Yes [id number] 2mg Take 0.1 mL by mouth 2 (two) times daily. Indication s: [facility] mg tablet 06-15 00:00: 00 Yes [id number] 40mg Take 1 tablet by mouth daily. [facility] ALPRAZolam 0.5 mg tablet 06-15 00:00: 00 Yes [id number] .25mg Take 0.5 tablets by mouth 3 (three) times daily. [facility] mor[facility] CONCENTRATE 100 mg/5 mL (20 mg/mL) oral solution 06-15 00:00: 00 Yes [id number] 2mg Take 0.1 mL by mouth 2 (two) times daily. Indication s: chronic [facility] mg tablet 06-15 00:00: 00 Yes [id number] 40mg Take 1 tablet by mouth daily. [facility] ALPRAZ[facility]am 0.5 mg tablet 06-15 00:00: 00 Yes [id number] .25mg Take 0.5 tablets by mouth 3 (three) times daily. [facility] morpHINE CONCENTRATE 100 mg/5 mL (20 mg/mL) oral solution 06-15 00:00: 00 Yes [id number] 2mg Take 0.1 mL by mouth 2 (two) times daily. Indication s: chronic pain [facility] furosemide 40 mg tablet 06-15 00:00: 00 Yes [id number] 40mg Take 1 tablet by mouth daily. [facility] ALPR[facility]am 0.5 mg tablet 06-15 00:00: 00 Yes [id number] .25mg Take 0.5 tablets by mouth 3 (three) times daily. [facility] mg tablet 06-15 00:00: 00 Yes [id number] 40mg Take 1 tablet by mouth daily. [facility] ALPR[facility]am 0.5 mg tablet 06-15 00:00: 00 Yes [id number] .25mg Take 0.5 tablets by mouth 3 (three) times daily. [facility] morpHINE CONCENTRATE 100 mg/5 mL (20 mg/mL) oral solution 06-15 00:00: 00 Yes [id number] 2mg Take 0.1 mL by mouth 2 (two) times daily. Indication s: chronic pain [facility] mg tablet 06-15 00:00: 00 Yes [id number] 40mg Take 1 tablet by mouth daily. [facility] ALPR[facility]am 0.5 mg tablet 06-15 00:00: 00 Yes [id number] .25mg Take 0.5 tablets by mouth 3 (three) times daily. [facility] morpHINE CONCENTRATE 100 mg/5 mL (20 mg/mL) oral solution 06-15 00:00: 00 Yes [id number] 2mg Take 0.1 mL by mouth 2 (two) times daily. Indication s: chronic pain [facility] furosemide 40 mg tablet 06-15 00:00: 00 Yes [id number] 40mg Take 1 tablet by mouth daily. [facility] ALPRAZolam 0.5 mg tablet 06-15 00:00: 00 Yes [id number] .25mg Take 0.5 tablets by mouth 3 (three) times daily. [facility] morpHINE CONCENTRATE 100 mg/5 mL (20 mg/mL) oral solution 06-15 00:00: 00 Yes [id number] 2mg Take 0.1 mL by mouth 2 (two) times daily. Indication s: chronic pain [facility] furosemide 40 mg tablet 06-15 00:00: 00 Yes [id number] 40mg Take 1 tablet by mouth daily. [facility] ALPR[facility]am 0.5 mg tablet 06-15 00:00: 00 Yes [id number] .25mg Take 0.5 tablets by mouth 3 (three) times daily. [facility] morpHINE CONCENTRATE 100 mg/5 mL (20 mg/mL) oral solution 06-15 00:00: 00 Yes [id number] 2mg Take 0.1 mL by mouth 2 (two) times daily. Indication s: [facility] mg tablet 06-15 00:00: 00 Yes [id number] 40mg Take 1 tablet by mouth daily. [facility] ALPRAZolam 0.5 mg tablet 06-15 00:00: 00 Yes [id number] .25mg Take 0.5 tablets by mouth 3 (three) times daily. [facility] morpHINE CONCENTRATE 100 mg/5 mL (20 mg/mL) oral solution 06-15 00:00: 00 Yes [id number] 2mg Take 0.1 mL by mouth 2 (two) times daily. Indication s: chronic pain [facility] f[facility] 40 mg tablet 06-15 00:00: 00 Yes [id number] 40mg Take 1 tablet by mouth daily. [facility] ALPRAZ[facility]am 0.5 mg tablet 06-15 00:00: 00 Yes [id number] .25mg Take 0.5 tablets by mouth 3 (three) times daily. [facility] morpHINE CONCENTRATE 100 mg/5 mL (20 mg/mL) oral solution 06-15 00:00: 00 Yes [id number] 2mg Take 0.1 mL by mouth 2 (two) times daily. Indication s: chronic pain [facility] furosemide 40 mg tablet 06-15 00:00: 00 Yes [id number] 40mg Take 1 tablet by mouth daily. [facility] ALPRAZolam 0.5 mg tablet 06-15 00:00: 00 Yes [id number] .25mg Take 0.5 tablets by mouth 3 (three) times daily. [facility] morpHINE CONCENTRATE 100 mg/5 mL (20 mg/mL) oral solution 06-15 00:00: 00 Yes [id number] 2mg Take 0.1 mL by mouth 2 (two) times daily. Indication s: [facility] mg tablet 06-15 00:00: 00 Yes [id number] 40mg Take 1 tablet by mouth daily. [facility] ALPRAZ[facility]am 0.5 mg tablet 06-15 00:00: 00 Yes [id number] .25mg Take 0.5 tablets by mouth 3 (three) times daily. [facility] morpHINE CONCENTRATE 100 mg/5 mL (20 mg/mL) oral solution 06-15 00:00: 00 Yes [id number] 2mg Take 0.1 mL by mouth 2 (two) times daily. Indication s: [facility] pain [facility] f[facility] mg tablet 06-15 00:00: 00 Yes [id number] 40mg Take 1 tablet by mouth daily. [facility] ALPRAZ[facility]am 0.5 mg tablet 06-15 00:00: 00 Yes [id number] .25mg Take 0.5 tablets by mouth 3 (three) times daily. [facility] morpHINE CONCENTRATE 100 mg/5 mL (20 mg/mL) oral solution 06-15 00:00: 00 Yes [id number] 2mg Take 0.1 mL by mouth 2 (two) times daily. Indication s: chronic pain [facility] furosemide 40 mg tablet 06-15 00:00: 00 Yes [id number] 40mg Take 1 tablet by mouth daily. [facility] ALPRAZolam 0.5 mg tablet 06-15 00:00: 00 Yes [id number] .25mg Take 0.5 tablets by mouth 3 (three) times daily. [facility] morpHINE CONCENTRATE 100 mg/5 mL (20 mg/mL) oral solution 06-15 00:00: 00 Yes [id number] 2mg Take 0.1 mL by mouth 2 (two) times daily. Indication s: chronic pain [facility] furosemide 40 mg tablet 06-15 00:00: 00 Yes [id number] 40mg Take 1 tablet by mouth daily. [facility] ALPRAZolam 0.5 mg tablet 06-15 00:00: 00 Yes [id number] .25mg Take 0.5 tablets by mouth 3 (three) times daily. [facility] morpHINE CONCENTRATE 100 mg/5 mL (20 mg/mL) oral solution 06-15 00:00: 00 Yes [id number] 2mg Take 0.1 mL by mouth 2 (two) times daily. Indication s: chronic pain [facility] furosemide 40 mg tablet 06-15 00:00: 00 Yes [id number] 40mg Take 1 tablet by mouth daily. [facility] ALPRAZolam 0.5 mg tablet 06-15 00:00: 00 Yes [id number] .25mg Take 0.5 tablets by mouth 3 (three) times daily. [facility] morpHINE CONCENTRATE 100 mg/5 mL (20 mg/mL) oral solution 06-15 00:00: 00 Yes [id number] 2mg Take 0.1 mL by mouth 2 (two) times daily. Indication s: [facility] mg tablet 06-15 00:00: 00 Yes [id number] 40mg Take 1 tablet by mouth daily. [facility] ALPRAZ[facility]am 0.5 mg tablet 06-15 00:00: 00 Yes [id number] .25mg Take 0.5 tablets by mouth 3 (three) times daily. [facility] morpHINE CONCENTRATE 100 mg/5 mL (20 mg/mL) oral solution 06-15 00:00: 00 Yes [id number] 2mg Take 0.1 mL by mouth 2 (two) times daily. Indication s: chronic pain [facility] furosemide 40 mg tablet 06-15 00:00: 00 Yes [id number] 40mg Take 1 tablet by mouth daily. [facility] ALPRAZolam 0.5 mg tablet 06-15 00:00: 00 Yes [id number] .25mg Take 0.5 tablets by mouth 3 (three) times daily. [facility] morpHINE CONCENTRATE 100 mg/5 mL (20 mg/mL) oral solution 06-15 00:00: 00 Yes [id number] 2mg Take 0.1 mL by mouth 2 (two) times daily. Indication s: chronic pain [facility] furosemide 40 mg tablet 06-15 00:00: 00 Yes [id number] 40mg Take 1 tablet by mouth daily. [facility] ALPR[facility]am 0.5 mg tablet 06-15 00:00: 00 Yes [id number] .25mg Take 0.5 tablets by mouth 3 (three) times daily. [facility] morpHINE CONCENTRATE 100 mg/5 mL (20 mg/mL) oral solution 06-15 00:00: 00 Yes [id number] 2mg Take 0.1 mL by mouth 2 (two) times daily. Indication s: chronic pain [facility] ALPRAZolam 0.5 mg tablet 06-15 00:00: 00 Yes [id number] .25mg Take 0.5 tablets by mouth in the morning and 0.5 tablets at noon and 0.5 tablets in the evening. [facility] morpHINE CONCENTRATE 100 mg/5 mL (20 mg/mL) oral solution 06-15 00:00: 00 Yes [id number] 2mg Take 0.1 mL by mouth 2 (two) times daily. Indication s: chronic pain [facility] ALPRAZolam 0.5 mg tablet 06-15 00:00: 00 Yes [id number] .25mg Take 0.5 tablets by mouth in the morning and 0.5 tablets at noon and 0.5 tablets in the evening. [facility] morpHINE CONCENTRATE 100 mg/5 mL (20 mg/mL) oral solution 06-15 00:00: 00 Yes [id number] 2mg Take 0.1 mL by mouth 2 (two) times daily. Indication s: chronic pain [facility] ALPRAZolam 0.5 mg tablet 06-15 00:00: 00 Yes [id number] .25mg Take 0.5 tablets by mouth in the morning and 0.5 tablets at noon and 0.5 tablets in the evening. [facility] morpHINE CONCENTRATE 100 mg/5 mL (20 mg/mL) oral solution 06-15 00:00: 00 Yes [id number] 2mg Take 0.1 mL by mouth 2 (two) times daily. Indication s: chronic pain [facility] ALPRAZolam 0.5 mg tablet 06-15 00:00: 00 Yes [id number] .25mg Take 0.5 tablets by mouth in the morning and 0.5 tablets at noon and 0.5 tablets in the evening. [facility] morpHINE CONCENTRATE 100 mg/5 mL (20 mg/mL) oral solution 06-15 00:00: 00 Yes [id number] 2mg Take 0.1 mL by mouth 2 (two) times daily. Indication s: [facility] ALPR[facility]am 0.5 mg tablet 06-15 00:00: 00 Yes [id number] .25mg Take 0.5 tablets by mouth in the morning and 0.5 tablets at noon and 0.5 tablets in the evening. [facility] morpHINE CONCENTRATE 100 mg/5 mL (20 mg/mL) oral solution 06-15 00:00: 00 Yes [id number] 2mg Take 0.1 mL by mouth 2 (two) times daily. Indication s: [facility] ALPRAZ[facility]am 0.5 mg tablet 06-15 00:00: 00 Yes [id number] .25mg Take 0.5 tablets by mouth in the morning and 0.5 tablets at noon and 0.5 tablets in the evening. [facility] morpHINE CONCENTRATE 100 mg/5 mL (20 mg/mL) oral solution 06-15 00:00: 00 Yes [id number] 2mg Take 0.1 mL by mouth 2 (two) times daily. Indication s: [facility] ALPRAZ[facility]am 0.5 mg tablet 06-15 00:00: 00 Yes [id number] .25mg Take 0.5 tablets by mouth in the morning and 0.5 tablets at noon and 0.5 tablets in the evening. [facility] morpHINE CONCENTRATE 100 mg/5 mL (20 mg/mL) oral solution 06-15 00:00: 00 Yes [id number] 2mg Take 0.1 mL by mouth 2 (two) times daily. Indication s: [facility] ALPRAZ[facility]am 0.5 mg tablet 06-15 00:00: 00 Yes [id number] .25mg Take 0.5 tablets by mouth in the morning and 0.5 tablets at noon and 0.5 tablets in the evening. [facility] morpHINE CONCENTRATE 100 mg/5 mL (20 mg/mL) oral solution 06-15 00:00: 00 Yes [id number] 2mg Take 0.1 mL by mouth 2 (two) times daily. Indication s: chronic pain [facility] ALPRAZolam 0.5 mg tablet 06-15 00:00: 00 Yes [id number] .25mg Take 0.5 tablets by mouth in the morning and 0.5 tablets at noon and 0.5 tablets in the evening. [facility] morpHINE CONCENTRATE 100 mg/5 mL (20 mg/mL) oral solution 06-15 00:00: 00 Yes [id number] 2mg Take 0.1 mL by mouth 2 (two) times daily. Indication s: chronic pain [facility] ALPRAZolam 0.5 mg tablet 06-15 00:00: 00 Yes [id number] .25mg Take 0.5 tablets by mouth in the morning and 0.5 tablets at noon and 0.5 tablets in the evening. [facility] morpHINE CONCENTRATE 100 mg/5 mL (20 mg/mL) oral solution 06-15 00:00: 00 Yes [id number] 2mg Take 0.1 mL by mouth 2 (two) times daily. Indication s: chronic pain [facility] ALPRAZolam 0.5 mg tablet 06-15 00:00: 00 Yes [id number] .25mg Take 0.5 tablets by mouth in the morning and 0.5 tablets at noon and 0.5 tablets in the evening. [facility] morpHINE CONCENTRATE 100 mg/5 mL (20 mg/mL) oral solution 06-15 00:00: 00 Yes [id number] 2mg Take 0.1 mL by mouth 2 (two) times daily. Indication s: chronic pain [facility] furosemide 40 mg tablet 06-15 00:00: 00 Yes [id number] 40mg Take 1 tablet by mouth daily. [facility] ALPRAZolam 0.5 mg tablet 06-15 00:00: 00 Yes [id number] .25mg Take 0.5 tablets by mouth 3 (three) times daily. [facility] furosemide 40 mg tablet 06-15 00:00: 00 Yes [id number] 40mg Take 1 tablet by mouth daily. [facility] ALPRAZolam 0.5 mg tablet 06-15 00:00: 00 Yes [id number] .25mg Take 0.5 tablets by mouth 3 (three) times daily. [facility] morpHINE CONCENTRATE 100 mg/5 mL (20 mg/mL) oral solution 06-15 00:00: 00 Yes [id number] 2mg Take 0.1 mL by mouth 2 (two) times daily. Indication s: chronic pain [facility] furosemide 40 mg tablet 06-15 00:00: 01-15 00:00 :00 No [id number] 40mg Take 1 tablet by mouth once daily as needed for Other (edema). [facility] furosemide 40 mg tablet 06-15 00:00: 00 01-15 00:00 :00 No [id number] 40mg Take 1 tablet by mouth once daily as needed for Other (edema). [facility] morpHINE CONCENTRATE 100 mg/5 mL (20 mg/mL) oral solution 06-15 00:00: 00 06-15 00:00 :00 No [id number] 6mg Take 0.3 mL by mouth 2 (two) times daily. Indication s: chronic pain [facility] morpHINE CONCENTRATE 100 mg/5 mL (20 mg/mL) oral solution 06-15 00:00: 00 06-15 00:00 :00 No [id number] 6mg Take 0.3 mL by mouth 2 (two) times daily. Indication s: chronic pain [facility] morpHINE CONCENTRATE 100 mg/5 mL (20 mg/mL) oral solution 06-15 00:00: 00 06-15 00:00 :00 No [id number] 6mg Take 0.3 mL by mouth 2 (two) times daily. Indication s: chronic pain [facility] morpHINE CONCENTRATE 100 mg/5 mL (20 mg/mL) oral solution 06-15 00:00: 00 06-15 00:00 :00 No [id number] 6mg Take 0.3 mL by mouth 2 (two) times daily. Indication s: chronic pain [facility] morpHINE CONCENTRATE 100 mg/5 mL (20 mg/mL) oral solution 06-15 00:00: 00 06-15 00:00 :00 No [id number] 6mg Take 0.3 mL by mouth 2 (two) times daily. Indication s: chronic pain [facility] morpHINE CONCENTRATE 100 mg/5 mL (20 mg/mL) oral solution 06-15 00:00: 00 06-15 00:00 :00 No [id number] 6mg Take 0.3 mL by mouth 2 (two) times daily. Indication s: chronic pain [facility] morpHINE CONCENTRATE 100 mg/5 mL (20 mg/mL) oral solution 06-15 00:00: 00 06-15 00:00 :00 No [id number] 6mg Take 0.3 mL by mouth 2 (two) times daily. Indication s: chronic pain [facility] pantoprazol e 40 mg EC tablet 12-10 00:00: 00 12-14 04:59 :00 No [id number] 40mg Take 1 tablet by mouth daily for 3 days. [facility] pantoprazol e 40 mg EC tablet 12-10 00:00: 00 12-14 04:59 :00 No [id number] 40mg Take 1 tablet by mouth daily for 3 days. [facility] KCL (KLOR-CON M20) tablet 40 mEq 12-09 15:30: 00 12-09 15:14 :00 No 40meq 40 mEq, Oral, ONCE, 1 dose, Sat12/09/20 at 1030, Routine [facility] Loperamide HCl 2 mg Tab tablet 12-09 00:00: 00 Yes [id number] 2mg Take 1 tablet by mouth every 6 (six) hours as needed (Diarrhea) . [facility] furosemide 20 mg tablet 12-09 00:00: 00 Yes [id number] 20mg Take 1 tablet by mouth daily. [facility] Loperamide HCl 2 mg Tab tablet 12-09 00:00: 00 Yes [id number] 2mg Take 1 tablet by mouth every 6 (six) hours as needed (Diarrhea) . [facility] furosemide 20 mg tablet 0 12-09 00:00: 00 Yes [id number] 20mg Take 1 tablet by mouth daily. [facility] Loperamide HCl 2 mg Tab tablet 0 12-09 00:00: 00 Yes [id number] 2mg Take 1 tablet by mouth every 6 (six) hours as needed (Diarrhea) . [facility] furosemide 20 mg tablet 2020-0 12-09 00:00: 00 Yes [id number] 20mg Take 1 tablet by mouth daily. [facility] Loperamide HCl 2 mg Tab tablet 0 12-09 00:00: 00 Yes [id number] 2mg Take 1 tablet by mouth every 6 (six) hours as needed (Diarrhea) . [facility] Loperamide HCl 2 mg Tab tablet 0 12-09 00:00: 00 Yes [id number] 2mg Take 1 tablet by mouth every 6 (six) hours as needed (Diarrhea) . [facility] Loperamide HCl 2 mg Tab tablet 0 12-09 00:00: 00 Yes [id number] 2mg Take 1 tablet by mouth every 6 (six) hours as needed (Diarrhea) . [facility] Loperamide HCl 2 mg Tab tablet 0 12-09 00:00: 00 Yes [id number] 2mg Take 1 tablet by mouth every 6 (six) hours as needed (Diarrhea) . [facility] Loperamide HCl 2 mg Tab tablet 0 12-09 00:00: 00 Yes [id number] 2mg Take 1 tablet by mouth every 6 (six) hours as needed (Diarrhea) . [facility] Loperamide HCl 2 mg Tab tablet 0 12-09 00:00: 00 Yes [id number] 2mg Take 1 tablet by mouth every 6 (six) hours as needed (Diarrhea) . [facility] Loperamide HCl 2 mg Tab tablet 2020-0 12-09 00:00: 00 Yes [id number] 2mg Take 1 tablet by mouth every 6 (six) hours as needed (Diarrhea) . [facility] Loperamide HCl 2 mg Tab tablet 2020-0 12-09 00:00: 00 Yes [id number] 2mg Take 1 tablet by mouth every 6 (six) hours as needed (Diarrhea) . [facility] Loperamide HCl 2 mg Tab tablet 2020-0 3-19 00:00: 00 Yes [id number] 2mg Take 1 tablet by mouth every 6 (six) hours as needed (Diarrhea) . [facility] Loperamide HCl 2 mg Tab tablet 2020-0 3-19 00:00: 00 Yes [id number] 2mg Take 1 tablet by mouth every 6 (six) hours as needed (Diarrhea) . [facility] Loperamide HCl 2 mg Tab tablet 2020-0 3-19 00:00: 00 Yes [id number] 2mg Take 1 tablet by mouth every 6 (six) hours as needed (Diarrhea) . [facility] Loperamide HCl 2 mg Tab tablet 2020-0 -19 00:00: 00 Yes [id number] 2mg Take 1 tablet by mouth every 6 (six) hours as needed (Diarrhea) . [facility] Loperamide HCl 2 mg Tab tablet 2020-0 -19 00:00: 00 Yes [id number] 2mg Take 1 tablet by mouth every 6 (six) hours as needed (Diarrhea) . [facility] Loperamide HCl 2 mg Tab tablet 2020-0 19 00:00: 00 Yes [id number] 2mg Take 1 tablet by mouth every 6 (six) hours as needed (Diarrhea) . [facility] Loperamide HCl 2 mg Tab tablet 2020-0 3-19 00:00: 00 Yes [id number] 2mg Take 1 tablet by mouth every 6 (six) hours as needed (Diarrhea) . [facility] Loperamide HCl 2 mg Tab tablet 2020-0 3-19 00:00: 00 Yes [id number] 2mg Take 1 tablet by mouth every 6 (six) hours as needed (Diarrhea) . [facility] Loperamide HCl 2 mg Tab tablet 1-0 3-19 00:00: 00 Yes [id number] 2mg Take 1 tablet by mouth every 6 (six) hours as needed (Diarrhea) . [facility] Loperamide HCl 2 mg Tab tablet 2021-0 3-19 00:00: 00 Yes [id number] 2mg Take 1 tablet by mouth every 6 (six) hours as needed (Diarrhea) . [facility] L[facility] mg Tab tablet 1-0 3-19 00:00: 00 Yes [id number] 2mg Take 1 tablet by mouth every 6 (six) hours as needed (Diarrhea) . [facility] Loperamide HCl 2 mg Tab tablet 2020-0 3-19 00:00: 00 Yes [id number] 2mg Take 1 tablet by mouth every 6 (six) hours as needed (Diarrhea) . [facility] Loperamide HCl 2 mg Tab tablet 1-0 3-19 00:00: 00 Yes [id number] 2mg Take 1 tablet by mouth every 6 (six) hours as needed (Diarrhea) . [facility] Loperamide HCl 2 mg Tab tablet 2020-0 3-19 00:00: 00 Yes [id number] 2mg Take 1 tablet by mouth every 6 (six) hours as needed (Diarrhea) . [facility] Loperamide HCl 2 mg Tab tablet 2020-0 -19 00:00: 00 Yes [id number] 2mg Take 1 tablet by mouth every 6 (six) hours as needed (Diarrhea) . [facility] Loperamide HCl 2 mg Tab tablet 2020-0 3-19 00:00: 00 Yes [id number] 2mg Take 1 tablet by mouth every 6 (six) hours as needed (Diarrhea) . [facility] Loperamide HCl 2 mg Tab tablet 2020-0 3-19 00:00: 00 Yes [id number] 2mg Take 1 tablet by mouth every 6 (six) hours as needed (Diarrhea) . [facility] Loperamide HCl 2 mg Tab tablet 1-0 3-19 00:00: 00 Yes [id number] 2mg Take 1 tablet by mouth every 6 (six) hours as needed (Diarrhea) . [facility] Loperamide HCl 2 mg Tab tablet 1-0 3-19 00:00: 00 Yes [id number] 2mg Take 1 tablet by mouth every 6 (six) hours as needed (Diarrhea) . [facility] Loperamide HCl 2 mg Tab tablet 2020-0 3-19 00:00: 00 Yes [id number] 2mg Take 1 tablet by mouth every 6 (six) hours as needed (Diarrhea) . [facility] Loperamide [facility] 2 mg Tab tablet 2020-0 3-19 00:00: 00 Yes [id number] 2mg Take 1 tablet by mouth every 6 (six) hours as needed (Diarrhea) . [facility] Loperamide HCl 2 mg Tab tablet 2020-0 -19 00:00: 00 Yes [id number] 2mg Take 1 tablet by mouth every 6 (six) hours as needed (Diarrhea) . [facility] Loperamide HCl 2 mg Tab tablet 2020-0 3-19 00:00: 00 Yes [id number] 2mg Take 1 tablet by mouth every 6 (six) hours as needed (Diarrhea) . [facility] furosemide 20 mg tablet 2020-0 12-09 00:00: 00 Yes [id number] 20mg Take 1 tablet by mouth daily. [facility] Loperamide HCl 2 mg Tab tablet 12-09 00:00: 00 01-15 00:00 :00 No [id number] 2mg Take 1 tablet by mouth every 6 (six) hours as needed (Diarrhea) . [facility] Loperamide HCl 2 mg Tab tablet 12-09 00:00: 00 01-15 00:00 :00 No [id number] 2mg Take 1 tablet by mouth every 6 (six) hours as needed (Diarrhea) . [facility] furosemide 20 mg tablet 2020-0 12-09 00:00: 00 06-15 00:00 :00 No [id number] 20mg Take 1 tablet by mouth daily. [facility] furosemide 20 mg tablet 2020-0 3-19 00:00: 00 06-15 00:00 :00 No [id number] 20mg Take 1 tablet by mouth daily. [facility] furosemide 20 mg tablet 2020-0 3-19 00:00: 00 06-15 00:00 :00 No [id number] 20mg Take 1 tablet by mouth daily. [facility] KCL 20 mEq tablet 12-09 00:00: 00 01-09 04:59 :00 No [id number] 20meq Take 1 tablet by mouth daily for 30 days. [facility] KCL 20 mEq tablet 12-09 00:00: 00 01-09 04:59 :00 No [id number] 20meq Take 1 tablet by mouth daily for 30 days. [facility] predniSONE 50 mg tablet 12-09 00:00: 00 12-13 04:59 :00 No [id number] 50mg Take 1 tablet by mouth daily for 3 days. [facility] predniSONE 50 mg tablet 12-09 00:00: 00 12-13 04:59 :00 No [id number] 50mg Take 1 tablet by mouth daily for 3 days. [facility] potassium chloride in water 10 mEq/100 mL RTU 10 mEq 12-08 21:00: 00 12-08 23:14 :00 No 10meq 10 mEq, IV Piggyback, Q1H, 2 doses, First dose on Sat12/08/20 at 1600, Last dose on Sat12/08/20 at 1700, 100 mL [facility] pantoprazol e (PROTONIX) EC tablet 40 mg 12-08 20:15: 00 Yes 40mg 40 mg, Oral, DAILY, First dose on Sat12/08/20 at 1515, Until Discontinu ed, Routine [facility] KCL (KLOR-CON M20) tablet 40 mEq 12-08 20:00: 00 12-08 19:13 :00 No 40meq 40 mEq, Oral, ONCE, 1 dose, Sat12/08/20 at 1500, Routine [facility] ipratropium -albuteroL (DUONEB) 0.5 mg-3 mg(2.5 mg base)/3 mL nebulizer solution 3 mL 12-07 17:00: 00 Yes 3mL 3 mL, Inhalation , Q4H, First dose (after last modificati on) on Sat12/07/20 at 1200, Until Discontinu ed, Routine [facility] predniSONE (DELTASONE) tablet 50 mg 12-07 14:00: 00 Yes 50mg 50 mg, Oral, DAILY, First dose on Sat12/07/20 at 0900, Until Discontinu ed, Routine [facility] buPROPion XL (WELLBUTRIN XL) tablet 150 mg 12-07 14:00: 00 Yes 150mg 150 mg, Oral, DAILY, First dose on Sat12/07/20 at 0900, Until Discontinu ed, Routine [facility] acetaZOLAMI DE (DIAMOX) tablet 250 mg 12-07 14:00: 00 Yes 250mg 250 mg, Oral, DAILY, First dose on Sat12/07/20 at 0900, Until Discontinu ed, Routine [facility] furosemide (LASIX) tablet 20 mg 12-06 19:45: 00 Yes 20mg 20 mg, Oral, DAILY, First dose on Sat12/06/20 at 1445, Until Discontinu ed, Routine [facility] enoxaparin (LOVENOX) injection 40 mg 12-06 14:00: 00 Yes 40mg 40 mg, Subcutaneo us, DAILY, First dose on Sat12/06/20 at 0900, Until Discontinu ed, Routine [facility] ipratropium -albuteroL (DUONEB) 0.5 mg-3 mg(2.5 mg base)/3 mL nebulizer solution 3 mL 12-06 13:00: 00 12-07 13:43 :49 No 3mL 3 mL, Inhalation , QID, First dose on Sat12/06/20 at 0800, Until Discontinu ed, Routine [facility] methylPREDN ISolone sod succ (SOLU-MEDRO L (PF)) injection 40 mg 12-06 11:00: 00 12-07 13:43 :25 No 40mg 40 mg, Slow IV Push, Q6H, First dose on Sat12/06/20 at 0600, Until Discontinu ed, [facility] ipratropium -albuteroL (DUONEB) 0.5 mg-3 mg(2.5 mg base)/3 mL nebulizer solution 3 mL 12-06 09:11: 53 Yes 3mL 3 mL, Inhalation , QIDPRN, Starting Sat12/06/20 at 0411, Until Discontinu ed, Routine, Wheezing, Shortness of Breath, Chest tightness [facility] ondansetron (ZOFRAN (PF)) injection 4 mg 12-06 09:10: 16 Yes 4mg 4 mg, Slow IV Push, Q6HPRN, Starting Sat12/06/20 at 0410, Until Discontinu ed, Routine, Nausea and Vomiting (N/V) [facility] magnesium sulfate in water 2 gram/50 mL (4 %) infusion 2 g 12-06 04:30: 00 12-06 03:42 :00 No 2g 2 g, IV Piggyback, ONCE, 1 dose, 12/05/20 at 2330, Routine [facility] simethicone 80 mg chewable tablet 2019-09 00:00: 00 Yes 80mg Take 1 tablet by mouth after meals and at bedtime. [facility] simethicone 80 mg chewable tablet 2019-09 00:00: 00 Yes 80mg Take 1 tablet by mouth after meals and at bedtime. [facility] simethicone 80 mg chewable tablet 2019-09 00:00: 00 Yes 80mg Take 1 tablet by mouth after meals and at bedtime. [facility] simethicone 80 mg chewable tablet 2019-09 00:00: 00 Yes 80mg Take 1 tablet by mouth after meals and at bedtime. [facility] simethicone 80 mg chewable tablet 2019-09 00:00: 00 Yes 80mg Take 1 tablet by mouth after meals and at bedtime. [facility] simethicone 80 mg chewable tablet 2019-09 00:00: 00 Yes 80mg Take 1 tablet by mouth after meals and at bedtime. [facility] simethicone 80 mg chewable tablet 2019-09 00:00: 00 Yes 80mg Take 1 tablet by mouth after meals and at bedtime. [facility] simethicone 80 mg chewable tablet 2019-09 00:00: 00 Yes 80mg Take 1 tablet by mouth after meals and at bedtime. [facility] simethicone 80 mg chewable tablet 2019-09 00:00: 00 Yes 80mg Take 1 tablet by mouth after meals and at bedtime. [facility] simethicone 80 mg chewable tablet 2019-09 00:00: 00 Yes 80mg Take 1 tablet by mouth after meals and at bedtime. [facility] simethicone 80 mg chewable tablet 2019-09 00:00: 00 Yes 80mg Take 1 tablet by mouth after meals and at bedtime. [facility] simethicone 80 mg chewable tablet 2019-09 00:00: 00 Yes 80mg Take 1 tablet by mouth after meals and at bedtime. [facility] simethicone 80 mg chewable tablet 2019-09 00:00: 00 Yes 80mg Take 1 tablet by mouth after meals and at bedtime. [facility] simethicone 80 mg chewable tablet 2019-09 00:00: 00 Yes 80mg Take 1 tablet by mouth after meals and at bedtime. [facility] simethicone 80 mg chewable tablet 2019-09 00:00: 00 Yes 80mg Take 1 tablet by mouth after meals and at bedtime. [facility] simethicone 80 mg chewable tablet 2019-09 00:00: 00 Yes 80mg Take 1 tablet by mouth after meals and at bedtime. [facility] simethicone 80 mg chewable tablet 2019-09 00:00: 00 Yes 80mg Take 1 tablet by mouth after meals and at bedtime. [facility] simethicone 80 mg chewable tablet 2019-09 00:00: 00 Yes 80mg Take 1 tablet by mouth after meals and at bedtime. [facility] simethicone 80 mg chewable tablet 2019-09 00:00: 00 Yes 80mg Take 1 tablet by mouth after meals and at bedtime. [facility] simethicone 80 mg chewable tablet 2019-09 00:00: 00 Yes 80mg Take 1 tablet by mouth after meals and at bedtime. [facility] simethicone 80 mg chewable tablet 2019-09 00:00: 00 Yes 80mg Take 1 tablet by mouth after meals and at bedtime. [facility] simethicone 80 mg chewable tablet 2019-09 00:00: 00 Yes 80mg Take 1 tablet by mouth after meals and at bedtime. [facility] simethicone 80 mg chewable tablet 2019-09 00:00: 00 Yes 80mg Take 1 tablet by mouth after meals and at bedtime. [facility] simethicone 80 mg chewable tablet 2019-09 00:00: 00 Yes 80mg Take 1 tablet by mouth after meals and at bedtime. [facility] simethicone 80 mg chewable tablet 2019-09 00:00: 00 Yes 80mg Take 1 tablet by mouth after meals and at bedtime. [facility] simethicone 80 mg chewable tablet 2019-09 00:00: 00 Yes 80mg Take 1 tablet by mouth after meals and at bedtime. [facility] simethicone 80 mg chewable tablet 2019-09 00:00: 00 Yes 80mg Take 1 tablet by mouth after meals and at bedtime. [facility] simethicone 80 mg chewable tablet 2019-09 00:00: 00 Yes 80mg Take 1 tablet by mouth after meals and at bedtime. [facility] simethicone 80 mg chewable tablet 2019-09 00:00: 00 Yes 80mg Take 1 tablet by mouth after meals and at bedtime. [facility] simethicone 80 mg chewable tablet 2019-09 00:00: 00 Yes 80mg Take 1 tablet by mouth after meals and at bedtime. [facility] simethicone 80 mg chewable tablet 2019-09 00:00: 00 Yes 80mg Take 1 tablet by mouth after meals and at bedtime. [facility] simethicone 80 mg chewable tablet 2019-09 00:00: 00 Yes 80mg Take 1 tablet by mouth after meals and at bedtime. [facility] simethicone 80 mg chewable tablet 2019-09 00:00: 00 Yes 80mg Take 1 tablet by mouth after meals and at bedtime. [facility] simethicone 80 mg chewable tablet 2019-09 00:00: 00 Yes 80mg Take 1 tablet by mouth after meals and at bedtime. [facility] simethicone 80 mg chewable tablet 2019-09 00:00: 00 Yes 80mg Take 1 tablet by mouth after meals and at bedtime. [facility] simethicone 80 mg chewable tablet 2019-09 00:00: 00 Yes 80mg Take 1 tablet by mouth after meals and at bedtime. [facility] simethicone 80 mg chewable tablet 2019-09 00:00: 00 Yes 80mg Take 1 tablet by mouth after meals and at bedtime. [facility] simethicone 80 mg chewable tablet 2019-09 00:00: 00 01-15 00:00 :00 No 80mg Take 1 tablet by mouth after meals and at bedtime. [facility] simethicone 80 mg chewable tablet 2019-09 00:00: 00 01-15 00:00 :00 No 80mg Take 1 tablet by mouth after meals and at bedtime. [facility] ketorolac (TORADOL) injection 30 mg 2019-09 18:00: 00 08-05 17:59 :00 No 30mg 30 mg, Slow IV Push, Q6H, 4 doses, First dose on Sat08/04/20 at 1200, Last dose on Sat08/05/20 at 0600, Routine [facility] NaCl 0.9% (NS) bolus infusion 1,000 mL 2019-09:00: 00 08-04 18:35 :00 No 1000mL at 999 mL/hr, 1,000 mL, IV Piggyback, ONCE, 1 dose, [facility] 08/04/20 at 1200, STAT [facility] ondansetron (ZOFRAN (PF)) injection 4 mg 2019-09 17:00: 00 08-04 17:17 :00 No 4mg 4 mg, Slow IV Push, ONCE, 1 dose, [facility] 08/04/20 at 1100, Routine [facility] predniSONE 10 mg tablet 04-30 00:00: 00 Yes [id number] Take 40 mg po qd x 3d, then 20 mg x 3d, then 10 mg until follow-up [facility] predniSONE 10 mg tablet 04-30 00:00: 00 Yes [id number] Take 40 mg po qd x 3d, then 20 mg x 3d, then 10 mg until follow-up [facility] predniSONE 10 mg tablet 04-30 00:00: 00 Yes [id number] Take 40 mg po qd x 3d, then 20 mg x 3d, then 10 mg until follow-up [facility] predniSONE 10 mg tablet 04-30 00:00: 00 Yes [id number] Take 40 mg po qd x 3d, then 20 mg x 3d, then 10 mg until follow-up [facility] predniSONE 10 mg tablet 04-30 00:00: 00 Yes [id number] Take 40 mg po qd x 3d, then 20 mg x 3d, then 10 mg until follow-up [facility] predniSONE 10 mg tablet 04-30 00:00: 00 Yes [id number] Take 40 mg po qd x 3d, then 20 mg x 3d, then 10 mg until follow-up [facility] predniSONE 10 mg tablet 04-30 00:00: 00 Yes [id number] Take 40 mg po qd x 3d, then 20 mg x 3d, then 10 mg until follow-up [facility] predniSONE 10 mg tablet 04-30 00:00: 00 Yes [id number] Take 40 mg po qd x 3d, then 20 mg x 3d, then 10 mg until follow-up [facility] predniSONE 10 mg tablet 04-30 00:00: 00 Yes [id number] Take 40 mg po qd x 3d, then 20 mg x 3d, then 10 mg until follow-up [facility] predniSONE 10 mg tablet 04-30 00:00: 00 Yes [id number] Take 40 mg po qd x 3d, then 20 mg x 3d, then 10 mg until follow-up [facility] predniSONE 10 mg tablet 04-30 00:00: 00 12-09 00:00 :00 No [id number] Take 40 mg po qd x 3d, then 20 mg x 3d, then 10 mg until follow-up [facility] predniSONE (DELTASONE) tablet 50 mg 04-29 16:00: 00 Yes 50mg 50 mg, Oral, DAILY, First dose on Sat04/29/20 at 1100, Until Discontinu ed, Routine [facility] sodium chloride 7% (HYPER-MEDARDO) nebulizer solution 4 mL 04-29 16:00: 00 Yes 4mL 4 mL, Inhalation , BID, First dose on Sat04/29/20 at 1100, Until Discontinu ed, Routine [facility] doxycycline hyclate (Vibramycin ) capsule 100 mg 04-29 01:00: 00 Yes 100mg 100 mg, Oral, BID, First dose on Sat04/28/20 at 2000, Until Discontinu ed, [facility]
Re ason for Anti-Infec tive: Empiric Therapy for Suspected Infection< br>Empiric Therapy Site: Respirator y
Durat ion of therapy: 72 hours [facility] sodium chloride 7% nebulizer solution 04-29 00:00: 00 Yes [id number] 4mL Inhale 4 mL 2 (two) times daily. [facility] sodium chloride 7% nebulizer solution 04-29 00:00: 00 Yes [id number] 4mL Inhale 4 mL 2 (two) times daily. [facility] sodium chloride 7% nebulizer solution 04-29 00:00: 00 Yes [id number] 4mL Inhale 4 mL 2 (two) times daily. [facility] sodium chloride 7% nebulizer solution 04-29 00:00: 00 Yes [id number] 4mL Inhale 4 mL 2 (two) times daily. [facility] chloride 7% nebulizer solution 04-29 00:00: 00 Yes [id number] 4mL Inhale 4 mL 2 (two) times daily. [facility] sodium chloride 7% nebulizer solution 04-29 00:00: 00 Yes [id number] 4mL Inhale 4 mL 2 (two) times daily. [facility] sodium chloride 7% nebulizer solution 04-29 00:00: 00 Yes [id number] 4mL Inhale 4 mL 2 (two) times daily. [facility] sodium chloride 7% nebulizer solution 04-29 00:00: 00 Yes [id number] 4mL Inhale 4 mL 2 (two) times daily. [facility] sodium chloride 7% nebulizer solution 04-29 00:00: 00 Yes [id number] 4mL Inhale 4 mL 2 (two) times daily. [facility] sodium chloride 7% nebulizer solution 04-29 00:00: 00 Yes [id number] 4mL Inhale 4 mL 2 (two) times daily. [facility] sodium chloride 7% nebulizer solution 04-29 00:00: 00 12-09 00:00 :00 No [id number] 4mL Inhale 4 mL 2 (two) times daily. [facility] clonazePAM (KLONOPIN) tablet 0.5 mg 04-28 16:55: 17 Yes .5mg 0.5 mg, Oral, BIDPRN, Starting Monse 04/28/20 at 1155, Until Discontinu ed, Routine, Anxiety [facility] enoxaparin (LOVENOX) injection 40 mg 04-28 14:00: 00 Yes 40mg 40 mg, Subcutaneo us, DAILY, First dose on Monse 04/28/20 at 0900, Until Discontinu ed, Routine [facility] nicotine (NICODERM) 14 mg/24 hr patch 1 Patch 2020-0 8-06 04:48: 00 Yes 1{patch } 1 Patch, Topical, Administer over 24 Hours, [id number], Starting Sat04/27/20 at 2348, Until Discontinu ed, Routine, smoking cessation [facility] ipratropium -albuterol (DUONEB) 0.5 mg-3 mg(2.5 mg base)/3 mL nebulizer solution 3 mL 04-28 00:00: 00 Yes 3mL 3 mL, Inhalation , Q4H, First dose on Sat04/27/20 at 1900, Until Discontinu ed, Routine [facility] methylpredn isolone sod succ (SOLU-MEDRO L) injection 60 mg 04-28 00:00: 00 04-29 15:50 :08 No 60mg 60 mg, Intravenou s, Q6H, First dose on Sat04/27/20 at 1900, Until Discontinu ed, Routine [facility] glucagon (GLUCAGEN DIAGNOSTIC KIT) injection 1 mg 04-27 23:48: 33 Yes 1mg 1 mg, Intramuscu lar, PRN, Starting Sat04/27/20 at 1848, Until Discontinu ed, GRICEL, Blood Glucose < or = 70 mg/dL and patient is unable to swallow or has mental changes. [facility] dextrose 50 % in water (D50W) injection 25 mL 04-27 23:48: 33 Yes 25mL 25 mL, Slow IV Push, PRN, Starting Sat04/27/20 at 1848, Until Discontinu ed, GRICEL, Blood Glucose < or = 70 mg/dL and patient is unable to swallow or has mental status changes. [facility] naloxone (NARCAN) injection 2 mg 04-27 23:45: 00 04-27 22:45 :00 No 2mg 2 mg, Slow IV Push, ONCE, 1 dose, Sat04/27/20 at 1845, STAT [facility] naloxone (NARCAN) injection 2 mg 04-27 22:45: 00 04-27 21:36 :00 No 2mg 2 mg, Slow IV Push, ONCE, 1 dose, Sat04/27/20 at 1745, STAT [facility] NaCl 0.9% (NS) bolus infusion 500 mL 04-27 21:00: 00 04-27 20:20 :00 No 500mL at 999 mL/hr, 500 mL, IV Infusion, ONCE, 1 dose, Sat04/27/20 at 1600, STAT [facility] naloxone (NARCAN) injection 1 mg 04-27 19:15: 00 04-27 18:10 :00 No 1mg 1 mg, Slow IV Push, ONCE, 1 dose, Sat04/27/20 at 1415, STAT [facility] naloxone (NARCAN) injection 0.4 mg 04-27 18:45: 00 04-27 17:38 :00 No .4mg 0.4 mg, Slow IV Push, ONCE, 1 dose, Sat04/27/20 at 1345, STAT [facility] naloxone (NARCAN) injection 0.4 mg 04-27 18:00: 00 04-27 17:02 :00 No .4mg 0.4 mg, Slow IV Push, ONCE, 1 dose, Sat04/27/20 at 1300, STAT [facility] ipratropium -albuterol (DUONEB) 0.5 mg-3 mg(2.5 mg base)/3 mL nebulizer solution 6 mL 04-27 17:45: 00 04-27 16:39 :00 No 6mL 6 mL, Inhalation , ONCE, 1 dose, Sat04/27/20 at 1245, Routine [facility] magnesium sulfate 4 mEq/mL (50 %) injection 16 mEq 04-27 17:45: 00 04-27 16:40 :00 No 2g 16 mEq (2 g), IV Piggyback, ONCE, 1 dose, 04/27/20 at 1245, STAT [facility] albuterol (PROAIR HFA) 90 mcg/actuati on inhaler 04-20 00:00: 00 Yes 2{puff} Inhale 2 Puffs every 6 (six) hours as needed for Wheezing or Shortness of Breath. [facility] albuterol (PROAIR HFA) 90 mcg/actuati on inhaler 04-20 00:00: 00 Yes 2{puff} Inhale 2 Puffs every 6 (six) hours as needed for Wheezing or Shortness of Breath. [facility] albuterol (PROAIR HFA) 90 mcg/actuati on inhaler 04-20 00:00: 00 Yes 2{puff} Inhale 2 Puffs every 6 (six) hours as needed for Wheezing or Shortness of Breath. [facility] albuterol (PROAIR HFA) 90 mcg/actuati on inhaler 04-20 00:00: 00 Yes 2{puff} Inhale 2 Puffs every 6 (six) hours as needed for Wheezing or Shortness of Breath. [facility] albuterol (PROAIR HFA) 90 mcg/actuati on inhaler 04-20 00:00: 00 Yes 2{puff} Inhale 2 Puffs every 6 (six) hours as needed for Wheezing or Shortness of Breath. [facility] albuterol (PROAIR HFA) 90 mcg/actuati on inhaler 04-20 00:00: 00 Yes 2{puff} Inhale 2 Puffs every 6 (six) hours as needed for Wheezing or Shortness of Breath. [facility] albuterol (PROAIR HFA) 90 mcg/actuati on inhaler 04-20 00:00: 00 Yes 2{puff} Inhale 2 Puffs every 6 (six) hours as needed for Wheezing or Shortness of Breath. [facility] albuterol (PROAIR HFA) 90 mcg/actuati on inhaler 04-20 00:00: 00 Yes 2{puff} Inhale 2 Puffs every 6 (six) hours as needed for Wheezing or Shortness of Breath. [facility] albuterol (PROAIR HFA) 90 mcg/actuati on inhaler 04-20 00:00: 00 Yes 2{puff} Inhale 2 Puffs every 6 (six) hours as needed for Wheezing or Shortness of Breath. [facility] albuterol (PROAIR HFA) 90 mcg/actuati on inhaler 04-20 00:00: 00 Yes 2{puff} Inhale 2 Puffs every 6 (six) hours as needed for Wheezing or Shortness of Breath. [facility] albuterol (PROAIR HFA) 90 mcg/actuati on inhaler 04-20 00:00: 00 Yes 2{puff} Inhale 2 Puffs every 6 (six) hours as needed for Wheezing or Shortness of Breath. [facility] albuterol (PROAIR HFA) 90 mcg/actuati on inhaler 04-20 00:00: 00 Yes 2{puff} Inhale 2 Puffs every 6 (six) hours as needed for Wheezing or Shortness of Breath. [facility] albuterol (PROAIR HFA) 90 mcg/actuati on inhaler 04-20 00:00: 00 Yes 2{puff} Inhale 2 Puffs every 6 (six) hours as needed for Wheezing or Shortness of Breath. [facility] albuterol (PROAIR HFA) 90 mcg/actuati on inhaler 04-20 00:00: 00 Yes 2{puff} Inhale 2 Puffs every 6 (six) hours as needed for Wheezing or Shortness of Breath. [facility] albuterol (PROAIR HFA) 90 mcg/actuati on inhaler 04-20 00:00: 00 Yes 2{puff} Inhale 2 Puffs every 6 (six) hours as needed for Wheezing or Shortness of Breath. [facility] albuterol (PROAIR HFA) 90 mcg/actuati on inhaler 04-20 00:00: 00 Yes 2{puff} Inhale 2 Puffs every 6 (six) hours as needed for Wheezing or Shortness of Breath. [facility] albuterol (PROAIR HFA) 90 mcg/actuati on inhaler 04-20 00:00: 00 Yes 2{puff} Inhale 2 Puffs every 6 (six) hours as needed for Wheezing or Shortness of Breath. [facility] albuterol (PROAIR HFA) 90 mcg/actuati on inhaler 04-20 00:00: 00 Yes 2{puff} Inhale 2 Puffs every 6 (six) hours as needed for Wheezing or Shortness of Breath. [facility] albuterol (PROAIR HFA) 90 mcg/actuati on inhaler 04-20 00:00: 00 Yes 2{puff} Inhale 2 Puffs every 6 (six) hours as needed for Wheezing or Shortness of Breath. [facility] albuterol (PROAIR HFA) 90 mcg/actuati on inhaler 04-20 00:00: 00 Yes 2{puff} Inhale 2 Puffs every 6 (six) hours as needed for Wheezing or Shortness of Breath. [facility] albuterol (PROAIR HFA) 90 mcg/actuati on inhaler 04-20 00:00: 00 Yes 2{puff} Inhale 2 Puffs every 6 (six) hours as needed for Wheezing or Shortness of Breath. [facility] albuterol (PROAIR HFA) 90 mcg/actuati on inhaler 04-20 00:00: 00 Yes 2{puff} Inhale 2 Puffs every 6 (six) hours as needed for Wheezing or Shortness of Breath. [facility] albuterol (PROAIR HFA) 90 mcg/actuati on inhaler 04-20 00:00: 00 Yes 2{puff} Inhale 2 Puffs every 6 (six) hours as needed for Wheezing or Shortness of Breath. [facility] albuterol (PROAIR HFA) 90 mcg/actuati on inhaler 04-20 00:00: 00 Yes 2{puff} Inhale 2 Puffs every 6 (six) hours as needed for Wheezing or Shortness of Breath. [facility] albuterol (PROAIR HFA) 90 mcg/actuati on inhaler 04-20 00:00: 00 Yes 2{puff} Inhale 2 Puffs every 6 (six) hours as needed for Wheezing or Shortness of Breath. [facility] albuterol (PROAIR HFA) 90 mcg/actuati on inhaler 04-20 00:00: 00 Yes 2{puff} Inhale 2 Puffs every 6 (six) hours as needed for Wheezing or Shortness of Breath. [facility] albuterol (PROAIR HFA) 90 mcg/actuati on inhaler 04-20 00:00: 00 Yes 2{puff} Inhale 2 Puffs every 6 (six) hours as needed for Wheezing or Shortness of Breath. [facility] albuterol (PROAIR HFA) 90 mcg/actuati on inhaler 04-20 00:00: 00 Yes 2{puff} Inhale 2 Puffs every 6 (six) hours as needed for Wheezing or Shortness of Breath. [facility] albuterol (PROAIR HFA) 90 mcg/actuati on inhaler 04-20 00:00: 00 Yes 2{puff} Inhale 2 Puffs every 6 (six) hours as needed for Wheezing or Shortness of Breath. [facility] albuterol (PROAIR HFA) 90 mcg/actuati on inhaler 04-20 00:00: 00 Yes 2{puff} Inhale 2 Puffs every 6 (six) hours as needed for Wheezing or Shortness of Breath. [facility] albuterol (PROAIR HFA) 90 mcg/actuati on inhaler 04-20 00:00: 00 Yes 2{puff} Inhale 2 Puffs every 6 (six) hours as needed for Wheezing or Shortness of Breath. [facility] albuterol (PROAIR HFA) 90 mcg/actuati on inhaler 04-20 00:00: 00 Yes 2{puff} Inhale 2 Puffs every 6 (six) hours as needed for Wheezing or Shortness of Breath. [facility] albuterol (PROAIR HFA) 90 mcg/actuati on inhaler 04-20 00:00: 00 Yes 2{puff} Inhale 2 Puffs every 6 (six) hours as needed for Wheezing or Shortness of Breath. [facility] albuterol (PROAIR HFA) 90 mcg/actuati on inhaler 04-20 00:00: 00 Yes 2{puff} Inhale 2 Puffs every 6 (six) hours as needed for Wheezing or Shortness of Breath. [facility] albuterol (PROAIR HFA) 90 mcg/actuati on inhaler 04-20 00:00: 00 Yes 2{puff} Inhale 2 Puffs every 6 (six) hours as needed for Wheezing or Shortness of Breath. [facility] albuterol (PROAIR HFA) 90 mcg/actuati on inhaler 04-20 00:00: 00 Yes 2{puff} Inhale 2 Puffs every 6 (six) hours as needed for Wheezing or Shortness of Breath. [facility] albuterol (PROAIR HFA) 90 mcg/actuati on inhaler 04-20 00:00: 00 Yes 2{puff} Inhale 2 Puffs every 6 (six) hours as needed for Wheezing or Shortness of Breath. [facility] albuterol (PROAIR HFA) 90 mcg/actuati on inhaler 04-20 00:00: 00 Yes 2{puff} Inhale 2 Puffs every 6 (six) hours as needed for Wheezing or Shortness of Breath. [facility] albuterol (PROAIR HFA) 90 mcg/actuati on inhaler 04-20 00:00: 00 Yes 2{puff} Inhale 2 Puffs every 6 (six) hours as needed for Wheezing or Shortness of Breath. [facility] albuterol (PROAIR HFA) 90 mcg/actuati on inhaler 04-20 00:00: 00 Yes 2{puff} Inhale 2 Puffs every 6 (six) hours as needed for Wheezing or Shortness of Breath. [facility] albuterol (PROAIR HFA) 90 mcg/actuati on inhaler 04-20 00:00: 00 Yes 2{puff} Inhale 2 Puffs every 6 (six) hours as needed for Wheezing or Shortness of Breath. [facility] albuterol (PROAIR HFA) 90 mcg/actuati on inhaler 04-20 00:00: 00 Yes 2{puff} Inhale 2 Puffs every 6 (six) hours as needed for Wheezing or Shortness of Breath. [facility] albuterol (PROAIR HFA) 90 mcg/actuati on inhaler 04-20 00:00: 00 Yes 2{puff} Inhale 2 Puffs every 6 (six) hours as needed for Wheezing or Shortness of Breath. [facility] albuterol (PROAIR HFA) 90 mcg/actuati on inhaler 04-20 00:00: 00 Yes 2{puff} Inhale 2 Puffs every 6 (six) hours as needed for Wheezing or Shortness of Breath. [facility] albuterol (PROAIR HFA) 90 mcg/actuati on inhaler 04-20 00:00: 00 Yes 2{puff} Inhale 2 Puffs every 6 (six) hours as needed for Wheezing or Shortness of Breath. [facility] albuterol (PROAIR HFA) 90 mcg/actuati on inhaler 04-20 00:00: 00 Yes 2{puff} Inhale 2 Puffs every 6 (six) hours as needed for Wheezing or Shortness of Breath. [facility] albuterol (PROAIR HFA) 90 mcg/actuati on inhaler 04-20 00:00: 00 Yes 2{puff} Inhale 2 Puffs every 6 (six) hours as needed for Wheezing or Shortness of Breath. [facility] albuterol (PROAIR HFA) 90 mcg/actuati on inhaler 04-20 00:00: 00 Yes 2{puff} Inhale 2 Puffs every 6 (six) hours as needed for Wheezing or Shortness of Breath. [facility] albuterol (PROAIR HFA) 90 mcg/actuati on inhaler 04-20 00:00: 00 Yes 2{puff} Inhale 2 Puffs every 6 (six) hours as needed for Wheezing or Shortness of Breath. [facility] albuterol (PROAIR HFA) 90 mcg/actuati on inhaler 04-20 00:00: 00 Yes 2{puff} Inhale 2 Puffs every 6 (six) hours as needed for Wheezing or Shortness of Breath. [facility] albuterol (PROAIR HFA) 90 mcg/actuati on inhaler 04-20 00:00: 00 Yes 2{puff} Inhale 2 Puffs every 6 (six) hours as needed for Wheezing or Shortness of Breath. [facility] albuterol (PROAIR HFA) 90 mcg/actuati on inhaler 04-20 00:00: 00 Yes 2{puff} Inhale 2 Puffs every 6 (six) hours as needed for Wheezing or Shortness of Breath. [facility] albuterol (PROAIR HFA) 90 mcg/actuati on inhaler 04-20 00:00: 00 Yes 2{puff} Inhale 2 Puffs every 6 (six) hours as needed for Wheezing or Shortness of Breath. [facility] albuterol (PROAIR HFA) 90 mcg/actuati on inhaler 04-20 00:00: 00 Yes 2{puff} Inhale 2 Puffs every 6 (six) hours as needed for Wheezing or Shortness of Breath. [facility] albuterol (PROAIR HFA) 90 mcg/actuati on inhaler 04-20 00:00: 00 Yes 2{puff} Inhale 2 Puffs every 6 (six) hours as needed for Wheezing or Shortness of Breath. [facility] albuterol (PROAIR HFA) 90 mcg/actuati on inhaler 04-20 00:00: 00 Yes 2{puff} Inhale 2 Puffs every 6 (six) hours as needed for Wheezing or Shortness of Breath. [facility] albuterol (PROAIR HFA) 90 mcg/actuati on inhaler 04-20 00:00: 00 Yes 2{puff} Inhale 2 Puffs every 6 (six) hours as needed for Wheezing or Shortness of Breath. [facility] albuterol (PROAIR HFA) 90 mcg/actuati on inhaler 04-17 00:00: 00 Yes 2{puff} Inhale 2 Puffs every 6 (six) hours as needed for Wheezing or Shortness of Breath. [facility] albuterol (PROAIR HFA) 90 mcg/actuati on inhaler 04-17 00:00: 00 Yes 2{puff} Inhale 2 Puffs every 6 (six) hours as needed for Wheezing or Shortness of Breath. [facility] albuterol (PROAIR HFA) 90 mcg/actuati on inhaler 04-17 00:00: 00 Yes 2{puff} Inhale 2 Puffs every 6 (six) hours as needed for Wheezing or Shortness of Breath. [facility] albuterol (PROAIR HFA) 90 mcg/actuati on inhaler 04-17 00:00: 00 Yes 2{puff} Inhale 2 Puffs every 6 (six) hours as needed for Wheezing or Shortness of Breath. [facility] albuterol (PROAIR HFA) 90 mcg/actuati on inhaler 04-17 00:00: 00 Yes 2{puff} Inhale 2 Puffs every 6 (six) hours as needed for Wheezing or Shortness of Breath. [facility] albuterol (PROAIR HFA) 90 mcg/actuati on inhaler 04-17 00:00: 00 Yes 2{puff} Inhale 2 Puffs every 6 (six) hours as needed for Wheezing or Shortness of Breath. [facility] albuterol (PROAIR HFA) 90 mcg/actuati on inhaler 04-17 00:00: 00 04-20 00:00 :00 No 2{puff} Inhale 2 Puffs every 6 (six) hours as needed for Wheezing or Shortness of Breath. [facility] albuterol 90 mcg/actuati on inhaler 04-15 00:00: 00 Yes [id number] 2{puff} Inhale 2 Puffs every 6 (six) hours as needed for Wheezing or Shortness of Breath. [facility] albuterol 90 mcg/actuati on inhaler 04-15 00:00: 00 Yes [id number] 2{puff} Inhale 2 Puffs every 6 (six) hours as needed for Wheezing or Shortness of Breath. [facility] albuterol 90 mcg/actuati on inhaler 04-15 00:00: 00 04-17 00:00 :00 No [id number] 2{puff} Inhale 2 Puffs every 6 (six) hours as needed for Wheezing or Shortness of Breath. [facility] clonazePAM 0.5 mg disintegrat ing tablet 04-07 00:00: 00 Yes [id number] .5mg Take 1 tablet by mouth 2 (two) times daily as needed for Anxiety. [facility] fluticasone -umeclidin- vilanter (TRELEGY ELLIPTA) 100-62.5-25 mcg DsDv 04-07 00:00: 00 Yes [id number] 1{puff} Take 1 Puff by mouth daily. [facility] predniSONE 10 mg tablet 04-07 00:00: 00 Yes [id number] 10mg Take 1 tablet by mouth daily. [facility] furosemide 20 mg tablet 04-07 00:00: 00 Yes [id number] 20mg Take 1 tablet by mouth daily. [facility] azithromyci n 250 mg tablet 04-07 00:00: 00 Yes [id number] 250mg Take 1 tablet by mouth daily. [facility] clonazePAM 0.5 mg disintegrat ing tablet 04-07 00:00: 00 Yes [id number] .5mg Take 1 tablet by mouth 2 (two) times daily as needed for Anxiety. [facility] fluticasone -umeclidin- vilanter (TRELEGY ELLIPTA) 100-62.5-25 mcg DsDv 04-07 00:00: 00 Yes [id number] 1{puff} Take 1 Puff by mouth daily. [facility] predniSONE 10 mg tablet 04-07 00:00: 00 Yes [id number] 10mg Take 1 tablet by mouth daily. [facility] furosemide 20 mg tablet 04-07 00:00: 00 Yes [id number] 20mg Take 1 tablet by mouth daily. [facility] azithromyci n 250 mg tablet 0 16 00:00: 00 Yes [id number] 250mg Take 1 tablet by mouth daily. [facility] clonazePAM 0.5 mg disintegrat ing tablet 04-07 00:00: 00 Yes [id number] .5mg Take 1 tablet by mouth 2 (two) times daily as needed for Anxiety. [facility] fluticasone -umeclidin- vilanter (TRELEGY ELLIPTA) 100-62.5-25 mcg DsDv 0 16 00:00: 00 Yes [id number] 1{puff} Take 1 Puff by mouth daily. [facility] predniSONE 10 mg tablet 04-07 00:00: 00 Yes [id number] 10mg Take 1 tablet by mouth daily. [facility] furosemide 20 mg tablet 04-07 00:00: 00 Yes [id number] 20mg Take 1 tablet by mouth daily. [facility] azithromyci n 250 mg tablet 04-07 00:00: 00 Yes [id number] 250mg Take 1 tablet by mouth daily. [facility] clonazePAM 0.5 mg disintegrat ing tablet 04-07 00:00: 00 Yes [id number] .5mg Take 1 tablet by mouth 2 (two) times daily as needed for Anxiety. [facility] fluticasone -umeclidin- vilanter (TRELEGY ELLIPTA) 100-62.5-25 mcg DsDv 0 04-07 00:00: 00 Yes [id number] 1{puff} Take 1 Puff by mouth daily. [facility] predniSONE 10 mg tablet 04-07 00:00: 00 Yes [id number] 10mg Take 1 tablet by mouth daily. [facility] furosemide 20 mg tablet 04-07 00:00: 00 Yes [id number] 20mg Take 1 tablet by mouth daily. [facility] azithromyci n 250 mg tablet 04-07 00:00: 00 Yes [id number] 250mg Take 1 tablet by mouth daily. [facility] clonazePAM 0.5 mg disintegrat ing tablet 0 16 00:00: 00 Yes [id number] .5mg Take 1 tablet by mouth 2 (two) times daily as needed for Anxiety. [facility] fluticasone -umeclidin- vilanter (TRELEGY ELLIPTA) 100-62.5-25 mcg DsDv 0 16 00:00: 00 Yes [id number] 1{puff} Take 1 Puff by mouth daily. [facility] predniSONE 10 mg tablet 04-07 00:00: 00 Yes [id number] 10mg Take 1 tablet by mouth daily. [facility] furosemide 20 mg tablet 04-07 00:00: 00 Yes [id number] 20mg Take 1 tablet by mouth daily. [facility] azithromyci n 250 mg tablet 04-07 00:00: 00 Yes [id number] 250mg Take 1 tablet by mouth daily. [facility] clonazePAM 0.5 mg disintegrat ing tablet 04-07 00:00: 00 Yes [id number] .5mg Take 1 tablet by mouth 2 (two) times daily as needed for Anxiety. [facility] fluticasone -umeclidin- vilanter (TRELEGY ELLIPTA) 100-62.5-25 mcg DsDv 04-07 00:00: 00 Yes [id number] 1{puff} Take 1 Puff by mouth daily. [facility] predniSONE 10 mg tablet 04-07 00:00: 00 Yes [id number] 10mg Take 1 tablet by mouth daily. [facility] furosemide 20 mg tablet 04-07 00:00: 00 Yes [id number] 20mg Take 1 tablet by mouth daily. [facility] azithromyci n 250 mg tablet 04-07 00:00: 00 Yes [id number] 250mg Take 1 tablet by mouth daily. [facility] clonazePAM 0.5 mg disintegrat ing tablet 0 04-07 00:00: 00 Yes [id number] .5mg Take 1 tablet by mouth 2 (two) times daily as needed for Anxiety. [facility] fluticasone -umeclidin- vilanter (TRELEGY ELLIPTA) 100-62.5-25 mcg DsDv 16 00:00: 00 Yes [id number] 1{puff} Take 1 Puff by mouth daily. [facility] predniSONE 10 mg tablet 04-07 00:00: 00 Yes [id number] 10mg Take 1 tablet by mouth daily. [facility] furosemide 20 mg tablet 04-07 00:00: 00 Yes [id number] 20mg Take 1 tablet by mouth daily. [facility] azithromyci n 250 mg tablet 04-07 00:00: 00 Yes [id number] 250mg Take 1 tablet by mouth daily. [facility] clonazePAM 0.5 mg disintegrat ing tablet 04-07 00:00: 00 Yes [id number] .5mg Take 1 tablet by mouth 2 (two) times daily as needed for Anxiety. [facility] fluticasone -umeclidin- vilanter (TRELEGY ELLIPTA) 100-62.5-25 mcg DsDv 04-07 00:00: 00 Yes [id number] 1{puff} Take 1 Puff by mouth daily. [facility] predniSONE 10 mg tablet 04-07 00:00: 00 Yes [id number] 10mg Take 1 tablet by mouth daily. [facility] furosemide 20 mg tablet 04-07 00:00: 00 Yes [id number] 20mg Take 1 tablet by mouth daily. [facility] azithromyci n 250 mg tablet 04-07 00:00: 00 Yes [id number] 250mg Take 1 tablet by mouth daily. [facility] clonazePAM 0.5 mg disintegrat ing tablet 04-07 00:00: 00 Yes [id number] .5mg Take 1 tablet by mouth 2 (two) times daily as needed for Anxiety. [facility] fluticasone -umeclidin- vilanter (TRELEGY ELLIPTA) 100-62.5-25 mcg DsDv 04-07 00:00: 00 Yes [id number] 1{puff} Take 1 Puff by mouth daily. [facility] predniSONE 10 mg tablet 04-07 00:00: 00 Yes [id number] 10mg Take 1 tablet by mouth daily. [facility] furosemide 20 mg tablet 04-07 00:00: 00 Yes [id number] 20mg Take 1 tablet by mouth daily. [facility] azithromyci n 250 mg tablet 04-07 00:00: 00 Yes [id number] 250mg Take 1 tablet by mouth daily. [facility] clonazePAM 0.5 mg disintegrat ing tablet 04-07 00:00: 00 Yes [id number] .5mg Take 1 tablet by mouth 2 (two) times daily as needed for Anxiety. [facility] fluticasone -umeclidin- vilanter (TRELEGY ELLIPTA) 100-62.5-25 mcg DsDv 04-07 00:00: 00 Yes [id number] 1{puff} Take 1 Puff by mouth daily. [facility] predniSONE 10 mg tablet 04-07 00:00: 00 Yes [id number] 10mg Take 1 tablet by mouth daily. [facility] furosemide 20 mg tablet 04-07 00:00: 00 Yes [id number] 20mg Take 1 tablet by mouth daily. [facility] azithromyci n 250 mg tablet 04-07 00:00: 00 Yes [id number] 250mg Take 1 tablet by mouth daily. [facility] clonazePAM 0.5 mg disintegrat ing tablet 04-07 00:00: 00 Yes [id number] .5mg Take 1 tablet by mouth 2 (two) times daily as needed for Anxiety. [facility] fluticasone -umeclidin- vilanter (TRELEGY ELLIPTA) 100-62.5-25 mcg DsDv 04-07 00:00: 00 Yes [id number] 1{puff} Take 1 Puff by mouth daily. [facility] predniSONE 10 mg tablet 04-07 00:00: 00 Yes [id number] 10mg Take 1 tablet by mouth daily. [facility] furosemide 20 mg tablet 04-07 00:00: 00 Yes [id number] 20mg Take 1 tablet by mouth daily. [facility] azithromyci n 250 mg tablet 04-07 00:00: 00 Yes [id number] 250mg Take 1 tablet by mouth daily. [facility] clonazePAM 0.5 mg disintegrat ing tablet 04-07 00:00: 00 Yes [id number] .5mg Take 1 tablet by mouth 2 (two) times daily as needed for Anxiety. [facility] fluticasone -umeclidin- vilanter (TRELEGY ELLIPTA) 100-62.5-25 mcg DsDv 04-07 00:00: 00 Yes [id number] 1{puff} Take 1 Puff by mouth daily. [facility] predniSONE 10 mg tablet 04-07 00:00: 00 Yes [id number] 10mg Take 1 tablet by mouth daily. [facility] furosemide 20 mg tablet 04-07 00:00: 00 Yes [id number] 20mg Take 1 tablet by mouth daily. [facility] azithromyci n 250 mg tablet 04-07 00:00: 00 Yes [id number] 250mg Take 1 tablet by mouth daily. [facility] clonazePAM 0.5 mg disintegrat ing tablet 04-07 00:00: 00 Yes [id number] .5mg Take 1 tablet by mouth 2 (two) times daily as needed for Anxiety. [facility] fluticasone -umeclidin- vilanter (TRELEGY ELLIPTA) 100-62.5-25 mcg DsDv 04-07 00:00: 00 Yes [id number] 1{puff} Take 1 Puff by mouth daily. [facility] predniSONE 10 mg tablet 04-07 00:00: 00 Yes [id number] 10mg Take 1 tablet by mouth daily. [facility] furosemide 20 mg tablet 04-07 00:00: 00 Yes [id number] 20mg Take 1 tablet by mouth daily. [facility] azithromyci n 250 mg tablet 04-07 00:00: 00 Yes [id number] 250mg Take 1 tablet by mouth daily. [facility] clonazePAM 0.5 mg disintegrat ing tablet 2019-0 16 00:00: 00 Yes [id number] .5mg Take 1 tablet by mouth 2 (two) times daily as needed for Anxiety. [facility] fluticasone -umeclidin- vilanter (TRELEGY ELLIPTA) 100-62.5-25 mcg DsDv 2019-0 7-16 00:00: 00 Yes [id number] 1{puff} Take 1 Puff by mouth daily. [facility] predniSONE 10 mg tablet 0 16 00:00: 00 Yes [id number] 10mg Take 1 tablet by mouth daily. [facility] furosemide 20 mg tablet 0 16 00:00: 00 Yes [id number] 20mg Take 1 tablet by mouth daily. [facility] azithromyci n 250 mg tablet 0 04-07 00:00: 00 Yes [id number] 250mg Take 1 tablet by mouth daily. [facility] clonazePAM 0.5 mg disintegrat ing tablet 0 04-07 00:00: 00 Yes [id number] .5mg Take 1 tablet by mouth 2 (two) times daily as needed for Anxiety. [facility] fluticasone -umeclidin- vilanter (TRELEGY ELLIPTA) 100-62.5-25 mcg DsDv 0 16 00:00: 00 Yes [id number] 1{puff} Take 1 Puff by mouth daily. [facility] predniSONE 10 mg tablet 0 16 00:00: 00 Yes [id number] 10mg Take 1 tablet by mouth daily. [facility] furosemide 20 mg tablet 0 16 00:00: 00 Yes [id number] 20mg Take 1 tablet by mouth daily. [facility] azithromyci n 250 mg tablet 0 16 00:00: 00 Yes [id number] 250mg Take 1 tablet by mouth daily. [facility] clonazePAM 0.5 mg disintegrat ing tablet 2019-0 16 00:00: 00 Yes [id number] .5mg Take 1 tablet by mouth 2 (two) times daily as needed for Anxiety. [facility] fluticasone -umeclidin- vilanter (TRELEGY ELLIPTA) 100-62.5-25 mcg DsDv 16 00:00: 00 Yes [id number] 1{puff} Take 1 Puff by mouth daily. [facility] predniSONE 10 mg tablet 04-07 00:00: 00 Yes [id number] 10mg Take 1 tablet by mouth daily. [facility] furosemide 20 mg tablet 0 04-07 00:00: 00 Yes [id number] 20mg Take 1 tablet by mouth daily. [facility] azithromyci n 250 mg tablet 0 04-07 00:00: 00 Yes [id number] 250mg Take 1 tablet by mouth daily. [facility] clonazePAM 0.5 mg disintegrat ing tablet 04-07 00:00: 00 Yes [id number] .5mg Take 1 tablet by mouth 2 (two) times daily as needed for Anxiety. [facility] fluticasone -umeclidin- vilanter (TRELEGY ELLIPTA) 100-62.5-25 mcg DsDv 0 04-07 00:00: 00 Yes [id number] 1{puff} Take 1 Puff by mouth daily. [facility] predniSONE 10 mg tablet 04-07 00:00: 00 Yes [id number] 10mg Take 1 tablet by mouth daily. [facility] furosemide 20 mg tablet 04-07 00:00: 00 Yes [id number] 20mg Take 1 tablet by mouth daily. [facility] azithromyci n 250 mg tablet 0 04-07 00:00: 00 Yes [id number] 250mg Take 1 tablet by mouth daily. [facility] clonazePAM 0.5 mg disintegrat ing tablet 04-07 00:00: 00 Yes [id number] .5mg Take 1 tablet by mouth 2 (two) times daily as needed for Anxiety. [facility] fluticasone -umeclidin- vilanter (TRELEGY ELLIPTA) 100-62.5-25 mcg DsDv 04-07 00:00: 00 Yes [id number] 1{puff} Take 1 Puff by mouth daily. [facility] predniSONE 10 mg tablet 04-07 00:00: 00 Yes [id number] 10mg Take 1 tablet by mouth daily. [facility] furosemide 20 mg tablet 04-07 00:00: 00 Yes [id number] 20mg Take 1 tablet by mouth daily. [facility] azithromyci n 250 mg tablet 04-07 00:00: 00 Yes [id number] 250mg Take 1 tablet by mouth daily. [facility] clonazePAM 0.5 mg disintegrat ing tablet 04-07 00:00: 00 Yes [id number] .5mg Take 1 tablet by mouth 2 (two) times daily as needed for Anxiety. [facility] fluticasone -umeclidin- vilanter (TRELEGY ELLIPTA) 100-62.5-25 mcg DsDv 04-07 00:00: 00 Yes [id number] 1{puff} Take 1 Puff by mouth daily. [facility] predniSONE 10 mg tablet 04-07 00:00: 00 Yes [id number] 10mg Take 1 tablet by mouth daily. [facility] furosemide 20 mg tablet 04-07 00:00: 00 Yes [id number] 20mg Take 1 tablet by mouth daily. [facility] azithromyci n 250 mg tablet 04-07 00:00: 00 Yes [id number] 250mg Take 1 tablet by mouth daily. [facility] clonazePAM 0.5 mg disintegrat ing tablet 04-07 00:00: 00 Yes [id number] .5mg Take 1 tablet by mouth 2 (two) times daily as needed for Anxiety. [facility] fluticasone -umeclidin- vilanter (TRELEGY ELLIPTA) 100-62.5-25 mcg DsDv 04-07 00:00: 00 Yes [id number] 1{puff} Take 1 Puff by mouth daily. [facility] predniSONE 10 mg tablet 04-07 00:00: 00 Yes [id number] 10mg Take 1 tablet by mouth daily. [facility] furosemide 20 mg tablet 04-07 00:00: 00 Yes [id number] 20mg Take 1 tablet by mouth daily. [facility] azithromyci n 250 mg tablet 04-07 00:00: 00 Yes [id number] 250mg Take 1 tablet by mouth daily. [facility] clonazePAM 0.5 mg disintegrat ing tablet 04-07 00:00: 00 Yes [id number] .5mg Take 1 tablet by mouth 2 (two) times daily as needed for Anxiety. [facility] fluticasone -umeclidin- vilanter (TRELEGY ELLIPTA) 100-62.5-25 mcg DsDv 04-07 00:00: 00 Yes [id number] 1{puff} Take 1 Puff by mouth daily. [facility] predniSONE 10 mg tablet 04-07 00:00: 00 Yes [id number] 10mg Take 1 tablet by mouth daily. [facility] furosemide 20 mg tablet 04-07 00:00: 00 Yes [id number] 20mg Take 1 tablet by mouth daily. [facility] azithromyci n 250 mg tablet 04-07 00:00: 00 Yes [id number] 250mg Take 1 tablet by mouth daily. [facility] clonazePAM 0.5 mg disintegrat ing tablet 04-07 00:00: 00 Yes [id number] .5mg Take 1 tablet by mouth 2 (two) times daily as needed for Anxiety. [facility] fluticasone -umeclidin- vilanter (TRELEGY ELLIPTA) 100-62.5-25 mcg DsDv 04-07 00:00: 00 Yes [id number] 1{puff} Take 1 Puff by mouth daily. [facility] predniSONE 10 mg tablet 04-07 00:00: 00 Yes [id number] 10mg Take 1 tablet by mouth daily. [facility] furosemide 20 mg tablet 04-07 00:00: 00 Yes [id number] 20mg Take 1 tablet by mouth daily. [facility] azithromyci n 250 mg tablet 0 16 00:00: 00 Yes [id number] 250mg Take 1 tablet by mouth daily. [facility] clonazePAM 0.5 mg disintegrat ing tablet 04-07 00:00: 00 Yes [id number] .5mg Take 1 tablet by mouth 2 (two) times daily as needed for Anxiety. [facility] fluticasone -umeclidin- vilanter (TRELEGY ELLIPTA) 100-62.5-25 mcg DsDv 0 16 00:00: 00 Yes [id number] 1{puff} Take 1 Puff by mouth daily. [facility] predniSONE 10 mg tablet 04-07 00:00: 00 Yes [id number] 10mg Take 1 tablet by mouth daily. [facility] furosemide 20 mg tablet 04-07 00:00: 00 Yes [id number] 20mg Take 1 tablet by mouth daily. [facility] azithromyci n 250 mg tablet 04-07 00:00: 00 Yes [id number] 250mg Take 1 tablet by mouth daily. [facility] clonazePAM 0.5 mg disintegrat ing tablet 04-07 00:00: 00 Yes [id number] .5mg Take 1 tablet by mouth 2 (two) times daily as needed for Anxiety. [facility] fluticasone -umeclidin- vilanter (TRELEGY ELLIPTA) 100-62.5-25 mcg DsDv 0 04-07 00:00: 00 Yes [id number] 1{puff} Take 1 Puff by mouth daily. [facility] predniSONE 10 mg tablet 04-07 00:00: 00 Yes [id number] 10mg Take 1 tablet by mouth daily. [facility] furosemide 20 mg tablet 04-07 00:00: 00 Yes [id number] 20mg Take 1 tablet by mouth daily. [facility] azithromyci n 250 mg tablet 04-07 00:00: 00 Yes [id number] 250mg Take 1 tablet by mouth daily. [facility] clonazePAM 0.5 mg disintegrat ing tablet 04-07 00:00: 00 Yes [id number] .5mg Take 1 tablet by mouth 2 (two) times daily as needed for Anxiety. [facility] fluticasone -umeclidin- vilanter (TRELEGY ELLIPTA) 100-62.5-25 mcg DsDv 04-07 00:00: 00 Yes [id number] 1{puff} Take 1 Puff by mouth daily. [facility] predniSONE 10 mg tablet 04-07 00:00: 00 Yes [id number] 10mg Take 1 tablet by mouth daily. [facility] furosemide 20 mg tablet 04-07 00:00: 00 Yes [id number] 20mg Take 1 tablet by mouth daily. [facility] azithromyci n 250 mg tablet 04-07 00:00: 00 Yes [id number] 250mg Take 1 tablet by mouth daily. [facility] clonazePAM 0.5 mg disintegrat ing tablet 04-07 00:00: 00 Yes [id number] .5mg Take 1 tablet by mouth 2 (two) times daily as needed for Anxiety. [facility] fluticasone -umeclidin- vilanter (TRELEGY ELLIPTA) 100-62.5-25 mcg DsDv 04-07 00:00: 00 Yes [id number] 1{puff} Take 1 Puff by mouth daily. [facility] furosemide 20 mg tablet 04-07 00:00: 00 Yes [id number] 20mg Take 1 tablet by mouth daily. [facility] azithromyci n 250 mg tablet 04-07 00:00: 00 Yes [id number] 250mg Take 1 tablet by mouth daily. [facility] clonazePAM 0.5 mg disintegrat ing tablet 04-07 00:00: 00 Yes [id number] .5mg Take 1 tablet by mouth 2 (two) times daily as needed for Anxiety. [facility] fluticasone -umeclidin- vilanter (TRELEGY ELLIPTA) 100-62.5-25 mcg DsDv 04-07 00:00: 00 Yes [id number] 1{puff} Take 1 Puff by mouth daily. [facility] furosemide 20 mg tablet 04-07 00:00: 00 Yes [id number] 20mg Take 1 tablet by mouth daily. [facility] azithromyci n 250 mg tablet 04-07 00:00: 00 Yes [id number] 250mg Take 1 tablet by mouth daily. [facility] clonazePAM 0.5 mg disintegrat ing tablet 04-07 00:00: 00 Yes [id number] .5mg Take 1 tablet by mouth 2 (two) times daily as needed for Anxiety. [facility] fluticasone -umeclidin- vilanter (TRELEGY ELLIPTA) 100-62.5-25 mcg DsDv 04-07 00:00: 00 Yes [id number] 1{puff} Take 1 Puff by mouth daily. [facility] furosemide 20 mg tablet 04-07 00:00: 00 Yes [id number] 20mg Take 1 tablet by mouth daily. [facility] azithromyci n 250 mg tablet 04-07 00:00: 00 Yes [id number] 250mg Take 1 tablet by mouth daily. [facility] clonazePAM 0.5 mg disintegrat ing tablet 04-07 00:00: 00 Yes [id number] .5mg Take 1 tablet by mouth 2 (two) times daily as needed for Anxiety. [facility] fluticasone -umeclidin- vilanter (TRELEGY ELLIPTA) 100-62.5-25 mcg DsDv 04-07 00:00: 00 Yes [id number] 1{puff} Take 1 Puff by mouth daily. [facility] furosemide 20 mg tablet 04-07 00:00: 00 Yes [id number] 20mg Take 1 tablet by mouth daily. [facility] azithromyci n 250 mg tablet 04-07 00:00: 00 Yes [id number] 250mg Take 1 tablet by mouth daily. [facility] clonazePAM 0.5 mg disintegrat ing tablet 04-07 00:00: 00 Yes [id number] .5mg Take 1 tablet by mouth 2 (two) times daily as needed for Anxiety. [facility] fluticasone -umeclidin- vilanter (TRELEGY ELLIPTA) 100-62.5-25 mcg DsDv 04-07 00:00: 00 Yes [id number] 1{puff} Take 1 Puff by mouth daily. [facility] furosemide 20 mg tablet 04-07 00:00: 00 Yes [id number] 20mg Take 1 tablet by mouth daily. [facility] azithromyci n 250 mg tablet 04-07 00:00: 00 Yes [id number] 250mg Take 1 tablet by mouth daily. [facility] clonazePAM 0.5 mg disintegrat ing tablet 04-07 00:00: 00 Yes [id number] .5mg Take 1 tablet by mouth 2 (two) times daily as needed for Anxiety. [facility] fluticasone -umeclidin- vilanter (TRELEGY ELLIPTA) 100-62.5-25 mcg DsDv 04-07 00:00: 00 Yes [id number] 1{puff} Take 1 Puff by mouth daily. [facility] furosemide 20 mg tablet 04-07 00:00: 00 Yes [id number] 20mg Take 1 tablet by mouth daily. [facility] azithromyci n 250 mg tablet 04-07 00:00: 00 Yes [id number] 250mg Take 1 tablet by mouth daily. [facility] clonazePAM 0.5 mg disintegrat ing tablet 04-07 00:00: 00 Yes [id number] .5mg Take 1 tablet by mouth 2 (two) times daily as needed for Anxiety. [facility] fluticasone -umeclidin- vilanter (TRELEGY ELLIPTA) 100-62.5-25 mcg DsDv 04-07 00:00: 00 Yes [id number] 1{puff} Take 1 Puff by mouth daily. [facility] furosemide 20 mg tablet 04-07 00:00: 00 Yes [id number] 20mg Take 1 tablet by mouth daily. [facility] azithromyci n 250 mg tablet 04-07 00:00: 00 Yes [id number] 250mg Take 1 tablet by mouth daily. [facility] clonazePAM 0.5 mg disintegrat ing tablet 04-07 00:00: 00 Yes [id number] .5mg Take 1 tablet by mouth 2 (two) times daily as needed for Anxiety. [facility] fluticasone -umeclidin- vilanter (TRELEGY ELLIPTA) 100-62.5-25 mcg DsDv 04-07 00:00: 00 Yes [id number] 1{puff} Take 1 Puff by mouth daily. [facility] furosemide 20 mg tablet 04-07 00:00: 00 Yes [id number] 20mg Take 1 tablet by mouth daily. [facility] azithromyci n 250 mg tablet 04-07 00:00: 00 Yes [id number] 250mg Take 1 tablet by mouth daily. [facility] clonazePAM 0.5 mg disintegrat ing tablet 04-07 00:00: 00 Yes [id number] .5mg Take 1 tablet by mouth 2 (two) times daily as needed for Anxiety. [facility] fluticasone -umeclidin- vilanter (TRELEGY ELLIPTA) 100-62.5-25 mcg DsDv 04-07 00:00: 00 Yes [id number] 1{puff} Take 1 Puff by mouth daily. [facility] furosemide 20 mg tablet 04-07 00:00: 00 Yes [id number] 20mg Take 1 tablet by mouth daily. [facility] azithromyci n 250 mg tablet 04-07 00:00: 00 Yes [id number] 250mg Take 1 tablet by mouth daily. [facility] clonazePAM 0.5 mg disintegrat ing tablet 04-07 00:00: 00 Yes [id number] .5mg Take 1 tablet by mouth 2 (two) times daily as needed for Anxiety. [facility] fluticasone -umeclidin- vilanter (TRELEGY ELLIPTA) 100-62.5-25 mcg DsDv 04-07 00:00: 00 Yes [id number] 1{puff} Take 1 Puff by mouth daily. [facility] furosemide 20 mg tablet 04-07 00:00: 00 Yes [id number] 20mg Take 1 tablet by mouth daily. [facility] azithromyci n 250 mg tablet 04-07 00:00: 00 Yes [id number] 250mg Take 1 tablet by mouth daily. [facility] clonazePAM 0.5 mg disintegrat ing tablet 04-07 00:00: 00 Yes [id number] .5mg Take 1 tablet by mouth 2 (two) times daily as needed for Anxiety. [facility] fluticasone -umeclidin- vilanter (TRELEGY ELLIPTA) 100-62.5-25 mcg DsDv 04-07 00:00: 00 Yes [id number] 1{puff} Take 1 Puff by mouth daily. [facility] azithromyci n 250 mg tablet 04-07 00:00: 00 Yes [id number] 250mg Take 1 tablet by mouth daily. [facility] clonazePAM 0.5 mg disintegrat ing tablet 04-07 00:00: 00 Yes [id number] .5mg Take 1 tablet by mouth 2 (two) times daily as needed for Anxiety. [facility] fluticasone -umeclidin- vilanter (TRELEGY ELLIPTA) 100-62.5-25 mcg DsDv 04-07 00:00: 00 Yes [id number] 1{puff} Take 1 Puff by mouth daily. [facility] azithromyci n 250 mg tablet 04-07 00:00: 00 Yes [id number] 250mg Take 1 tablet by mouth daily. [facility] clonazePAM 0.5 mg disintegrat ing tablet 04-07 00:00: 00 Yes [id number] .5mg Take 1 tablet by mouth 2 (two) times daily as needed for Anxiety. [facility] fluticasone -umeclidin- vilanter (TRELEGY ELLIPTA) 100-62.5-25 mcg DsDv 04-07 00:00: 00 Yes [id number] 1{puff} Take 1 Puff by mouth daily. [facility] azithromyci n 250 mg tablet 04-07 00:00: 00 Yes [id number] 250mg Take 1 tablet by mouth daily. [facility] clonazePAM 0.5 mg disintegrat ing tablet 04-07 00:00: 00 Yes [id number] .5mg Take 1 tablet by mouth 2 (two) times daily as needed for Anxiety. [facility] fluticasone -umeclidin- vilanter (TRELEGY ELLIPTA) 100-62.5-25 mcg DsDv 04-07 00:00: 00 Yes [id number] 1{puff} Take 1 Puff by mouth daily. [facility] azithromyci n 250 mg tablet 04-07 00:00: 00 Yes [id number] 250mg Take 1 tablet by mouth daily. [facility] fluticasone -umeclidin- vilanter (TRELEGY ELLIPTA) 100-62.5-25 mcg DsDv 04-07 00:00: 00 Yes [id number] 1{puff} Take 1 Puff by mouth daily. [facility] fluticasone -umeclidin- vilanter (TRELEGY ELLIPTA) 100-62.5-25 mcg DsDv 04-07 00:00: 00 Yes [id number] 1{puff} Take 1 Puff by mouth daily. [facility] fluticasone -umeclidin- vilanter (TRELEGY ELLIPTA) 100-62.5-25 mcg DsDv 04-07 00:00: 00 Yes [id number] 1{puff} Take 1 Puff by mouth daily. [facility] fluticasone -umeclidin- vilanter (TRELEGY ELLIPTA) 100-62.5-25 mcg DsDv 04-07 00:00: 00 Yes [id number] 1{puff} Take 1 Puff by mouth daily. [facility] fluticasone -umeclidin- vilanter (TRELEGY ELLIPTA) 100-62.5-25 mcg DsDv 2020-0 7-16 00:00: 00 Yes [id number] 1{puff} Take 1 Puff by mouth daily. [facility] fluticasone -umeclidin- vilanter (TRELEGY ELLIPTA) 100-62.5-25 mcg DsDv 2020-0 7-16 00:00: 00 Yes [id number] 1{puff} Take 1 Puff by mouth daily. [facility] fluticasone -umeclidin- vilanter (TRELEGY ELLIPTA) 100-62.5-25 mcg DsDv 2020-0 7-16 00:00: 00 Yes [id number] 1{puff} Take 1 Puff by mouth daily. [facility] fluticasone -umeclidin- vilanter (TRELEGY ELLIPTA) 100-62.5-25 mcg DsDv 2020-0 7-16 00:00: 00 Yes [id number] 1{puff} Take 1 Puff by mouth daily. [facility] fluticasone -umeclidin- vilanter (TRELEGY ELLIPTA) 100-62.5-25 mcg DsDv 2020-0 7-16 00:00: 00 Yes [id number] 1{puff} Take 1 Puff by mouth daily. [facility] fluticasone -umeclidin- vilanter (TRELEGY ELLIPTA) 100-62.5-25 mcg DsDv 2020-0 7-16 00:00: 00 Yes [id number] 1{puff} Take 1 Puff by mouth daily. [facility] fluticasone -umeclidin- vilanter (TRELEGY ELLIPTA) 100-62.5-25 mcg DsDv 2020-0 7-16 00:00: 00 Yes [id number] 1{puff} Take 1 Puff by mouth daily. [facility] fluticasone -umeclidin- vilanter (TRELEGY ELLIPTA) 100-62.5-25 mcg DsDv 2020-0 7-16 00:00: 00 Yes [id number] 1{puff} Take 1 Puff by mouth daily. [facility] fluticasone -umeclidin- vilanter (TRELEGY ELLIPTA) 100-62.5-25 mcg DsDv 2020-0 7-16 00:00: 00 Yes [id number] 1{puff} Take 1 Puff by mouth daily. [facility] fluticasone -umeclidin- vilanter (TRELEGY ELLIPTA) 100-62.5-25 mcg DsDv 2020-0 7-16 00:00: 00 Yes [id number] 1{puff} Take 1 Puff by mouth daily. [facility] fluticasone -umeclidin- vilanter (TRELEGY ELLIPTA) 100-62.5-25 mcg DsDv 2020-0 7-16 00:00: 00 Yes [id number] 1{puff} Take 1 Puff by mouth daily. [facility] fluticasone -umeclidin- vilanter (TRELEGY ELLIPTA) 100-62.5-25 mcg DsDv 2020-0 7-16 00:00: 00 Yes [id number] 1{puff} Take 1 Puff by mouth daily. [facility] fluticasone -umeclidin- vilanter (TRELEGY ELLIPTA) 100-62.5-25 mcg DsDv 2020-0 7-16 00:00: 00 Yes [id number] 1{puff} Take 1 Puff by mouth daily. [facility] fluticasone -umeclidin- vilanter (TRELEGY ELLIPTA) 100-62.5-25 mcg DsDv 2020-0 7-16 00:00: 00 Yes [id number] 1{puff} Take 1 Puff by mouth daily. [facility] fluticasone -umeclidin- vilanter (TRELEGY ELLIPTA) 100-62.5-25 mcg DsDv 2020-0 7-16 00:00: 00 Yes [id number] 1{puff} Take 1 Puff by mouth daily. [facility] fluticasone -umeclidin- vilanter (TRELEGY ELLIPTA) 100-62.5-25 mcg DsDv 2020-0 7-16 00:00: 00 Yes [id number] 1{puff} Take 1 Puff by mouth daily. [facility] fluticasone -umeclidin- vilanter (TRELEGY ELLIPTA) 100-62.5-25 mcg DsDv 2020-0 716 00:00: 00 Yes [id number] 1{puff} Take 1 Puff by mouth daily. [facility] fluticasone -umeclidin- vilanter (TRELEGY ELLIPTA) 100-62.5-25 mcg DsDv 2020-0 7-16 00:00: 00 Yes [id number] 1{puff} Take 1 Puff by mouth daily. [facility] fluticasone -umeclidin- vilanter (TRELEGY ELLIPTA) 100-62.5-25 mcg DsDv 2020-0 716 00:00: 00 Yes [id number] 1{puff} Take 1 Puff by mouth daily. [facility] fluticasone -umeclidin- vilanter (TRELEGY ELLIPTA) 100-62.5-25 mcg DsDv 2020-0 7-16 00:00: 00 Yes [id number] 1{puff} Take 1 Puff by mouth daily. [facility] fluticasone -umeclidin- vilanter (TRELEGY ELLIPTA) 100-62.5-25 mcg DsDv 2020-0 716 00:00: 00 Yes [id number] 1{puff} Take 1 Puff by mouth daily. [facility] fluticasone -umeclidin- vilanter (TRELEGY ELLIPTA) 100-62.5-25 mcg DsDv 2020-0 7-16 00:00: 00 Yes [id number] 1{puff} Take 1 Puff by mouth daily. [facility] fluticasone -umeclidin- vilanter (TRELEGY ELLIPTA) 100-62.5-25 mcg DsDv 2020-0 716 00:00: 00 Yes [id number] 1{puff} Take 1 Puff by mouth daily. [facility] fluticasone -umeclidin- vilanter (TRELEGY ELLIPTA) 100-62.5-25 mcg DsDv 2020-0 7-16 00:00: 00 Yes [id number] 1{puff} Take 1 Puff by mouth daily. [facility] fluticasone -umeclidin- vilanter (TRELEGY ELLIPTA) 100-62.5-25 mcg DsDv 04-07 00:00: 00 Yes [id number] 1{puff} Take 1 Puff by mouth daily. [facility] fluticasone -umeclidin- vilanter (TRELEGY ELLIPTA) 100-62.5-25 mcg DsDv 04-07 00:00: 00 Yes [id number] 1{puff} Take 1 Puff by mouth daily. [facility] fluticasone -umeclidin- vilanter (TRELEGY ELLIPTA) 100-62.5-25 mcg DsDv 04-07 00:00: 00 01-15 00:00 :00 No [id number] 1{puff} Take 1 Puff by mouth daily. [facility] fluticasone -umeclidin- vilanter (TRELEGY ELLIPTA) 100-62.5-25 mcg DsDv 04-07 00:00: 00 01-15 00:00 :00 No [id number] 1{puff} Take 1 Puff by mouth daily. [facility] clonazePAM 0.5 mg disintegrat ing tablet 04-07 00:00: 00 06-15 00:00 :00 No [id number] .5mg Take 1 tablet by mouth 2 (two) times daily as needed for Anxiety. [facility] azithromyci n 250 mg tablet 04-07 00:00: 00 06-15 00:00 :00 No [id number] 250mg Take 1 tablet by mouth daily. [facility] clonazePAM 0.5 mg disintegrat ing tablet 04-07 00:00: 00 06-15 00:00 :00 No [id number] .5mg Take 1 tablet by mouth 2 (two) times daily as needed for Anxiety. [facility] azithromyci n 250 mg tablet 04-07 00:00: 00 06-15 00:00 :00 No [id number] 250mg Take 1 tablet by mouth daily. [facility] clonazePAM 0.5 mg disintegrat ing tablet 04-07 00:00: 00 06-15 00:00 :00 No [id number] .5mg Take 1 tablet by mouth 2 (two) times daily as needed for Anxiety. [facility] azithromyci n 250 mg tablet 04-07 00:00: 00 06-15 00:00 :00 No [id number] 250mg Take 1 tablet by mouth daily. [facility] furosemide 20 mg tablet 04-07 00:00: 00 12-09 00:00 :00 No [id number] 20mg Take 1 tablet by mouth daily. [facility] predniSONE 10 mg tablet 04-07 00:00: 00 04-30 00:00 :00 No [id number] 10mg Take 1 tablet by mouth daily. [facility] azithromyci n 250 mg tablet 03-24 00:00: 00 04-07 00:00 :00 No 1{tbl} Take 1 tablet by mouth daily. [facility] azithromyci n 250 mg tablet 03-24 00:00: 00 04-07 00:00 :00 No 1{tbl} Take 1 tablet by mouth daily. [facility] azithromyci n 250 mg tablet 03-24 00:00: 00 04-07 00:00 :00 No 1{tbl} Take 1 tablet by mouth daily. [facility] azithromyci n 250 mg tablet 03-24 00:00: 00 04-07 00:00 :00 No 1{tbl} Take 1 tablet by mouth daily. [facility] azithromyci n 250 mg tablet 03-24 00:00: 00 04-07 00:00 :00 No 1{tbl} Take 1 tablet by mouth daily. [facility] azithromyci n 250 mg tablet 03-24 00:00: 04-07 00:00 :00 No 1{tbl} Take 1 tablet by mouth daily. [facility] azithromyci n 250 mg tablet 03-24 00:00: 04-07 00:00 :00 No 1{tbl} Take 1 tablet by mouth daily. [facility] azithromyci n 250 mg tablet 03-24 00:00: 04-07 00:00 :00 No 1{tbl} Take 1 tablet by mouth daily. [facility] TRELEGY ELLIPTA 100-62.5-25 mcg DsDv 03-14 00:00: 00 04-07 00:00 :00 No 1{puff} Take 1 Puff by mouth daily. [facility] TRELEGY ELLIPTA 100-62.5-25 mcg DsDv 03-14 00:00: 00 04-07 00:00 :00 No 1{puff} Take 1 Puff by mouth daily. [facility] TRELEGY ELLIPTA 100-62.5-25 mcg DsDv 03-14 00:00: 00 04-07 00:00 :00 No 1{puff} Take 1 Puff by mouth daily. [facility] TRELEGY ELLIPTA 100-62.5-25 mcg DsDv 03-14 00:00: 00 04-07 00:00 :00 No 1{puff} Take 1 Puff by mouth daily. [facility] TRELEGY ELLIPTA 100-62.5-25 mcg DsDv 03-14 00:00: 00 04-07 00:00 :00 No 1{puff} Take 1 Puff by mouth daily. [facility] TRELEGY ELLIPTA 100-62.5-25 mcg DsDv 03-14 00:00: 00 04-07 00:00 :00 No 1{puff} Take 1 Puff by mouth daily. [facility] TRELEGY ELLIPTA 100-62.5-25 mcg DsDv 03-14 00:00: 00 04-07 00:00 :00 No 1{puff} Take 1 Puff by mouth daily. [facility] TRELEELIAN ELLIPTA 100-62.5-25 mcg DsDv 03-14 00:00: 00 04-07 00:00 :00 No 1{puff} Take 1 Puff by mouth daily. [facility] acetaZOLAMI DE 250 mg tablet 03-11 00:00: 00 Yes 1{tbl} Take 1 tablet by mouth daily. [facility] acetaZOLAMI DE 250 mg tablet 03-11 00:00: 00 Yes 1{tbl} Take 1 tablet by mouth daily. [facility] acetaZOLAMI DE 250 mg tablet 03-11 00:00: 00 Yes 1{tbl} Take 1 tablet by mouth daily. [facility] acetaZOLAMI DE 250 mg tablet 03-11 00:00: 00 Yes 1{tbl} Take 1 tablet by mouth daily. [facility] acetaZOLAMI DE 250 mg tablet 03-11 00:00: 00 Yes 1{tbl} Take 1 tablet by mouth daily. [facility] acetaZOLAMI DE 250 mg tablet 03-11 00:00: 00 Yes 1{tbl} Take 1 tablet by mouth daily. [facility] acetaZOLAMI DE 250 mg tablet 03-11 00:00: 00 Yes 1{tbl} Take 1 tablet by mouth daily. [facility] acetaZOLAMI DE 250 mg tablet 03-11 00:00: 00 Yes 1{tbl} Take 1 tablet by mouth daily. [facility] acetaZOLAMI DE 250 mg tablet 0 03-11 00:00: 00 Yes 1{tbl} Take 1 tablet by mouth daily. [facility] acetaZOLAMI DE 250 mg tablet 0 03-11 00:00: 00 Yes 1{tbl} Take 1 tablet by mouth daily. [facility] acetaZOLAMI DE 250 mg tablet 03-11 00:00: 00 Yes 1{tbl} Take 1 tablet by mouth daily. [facility] acetaZOLAMI DE 250 mg tablet 2019-0 19 00:00: 00 Yes 1{tbl} Take 1 tablet by mouth daily. [facility] acetaZOLAMI DE 250 mg tablet 2019-0 03-11 00:00: 00 Yes 1{tbl} Take 1 tablet by mouth daily. [facility] acetaZOLAMI DE 250 mg tablet 2019-0 19 00:00: 00 Yes 1{tbl} Take 1 tablet by mouth daily. [facility] acetaZOLAMI DE 250 mg tablet 2019-0 03-11 00:00: 00 Yes 1{tbl} Take 1 tablet by mouth daily. [facility] acetaZOLAMI DE 250 mg tablet 2019-0 03-11 00:00: 00 Yes 1{tbl} Take 1 tablet by mouth daily. [facility] acetaZOLAMI DE 250 mg tablet 2019-0 03-11 00:00: 00 Yes 1{tbl} Take 1 tablet by mouth daily. [facility] acetaZOLAMI DE 250 mg tablet 2019-0 03-11 00:00: 00 Yes 1{tbl} Take 1 tablet by mouth daily. [facility] acetaZOLAMI DE 250 mg tablet 2019-0 03-11 00:00: 00 Yes 1{tbl} Take 1 tablet by mouth daily. [facility] acetaZOLAMI DE 250 mg tablet 2019-0 03-11 00:00: 00 Yes 1{tbl} Take 1 tablet by mouth daily. [facility] acetaZOLAMI DE 250 mg tablet 2019-0 03-11 00:00: 00 Yes 1{tbl} Take 1 tablet by mouth daily. [facility] acetaZOLAMI DE 250 mg tablet 2019-0 03-11 00:00: 00 Yes 1{tbl} Take 1 tablet by mouth daily. [facility] acetaZOLAMI DE 250 mg tablet 2019-0 03-11 00:00: 00 Yes 1{tbl} Take 1 tablet by mouth daily. [facility] acetaZOLAMI DE 250 mg tablet 2019-0 19 00:00: 00 Yes 1{tbl} Take 1 tablet by mouth daily. [facility] acetaZOLAMI DE 250 mg tablet 2020-0 19 00:00: 00 Yes 1{tbl} Take 1 tablet by mouth daily. [facility] acetaZOLAMI DE 250 mg tablet 2019-0 19 00:00: 00 Yes 1{tbl} Take 1 tablet by mouth daily. [facility] acetaZOLAMI DE 250 mg tablet 2019-0 19 00:00: 00 Yes 1{tbl} Take 1 tablet by mouth daily. [facility] acetaZOLAMI DE 250 mg tablet 2019-0 -19 00:00: 00 Yes 1{tbl} Take 1 tablet by mouth daily. [facility] acetaZOLAMI DE 250 mg tablet 2019-0 19 00:00: 00 Yes 1{tbl} Take 1 tablet by mouth daily. [facility] acetaZOLAMI DE 250 mg tablet 2019-0 19 00:00: 00 Yes 1{tbl} Take 1 tablet by mouth daily. [facility] acetaZOLAMI DE 250 mg tablet 2019-0 19 00:00: 00 Yes 1{tbl} Take 1 tablet by mouth daily. [facility] acetaZOLAMI DE 250 mg tablet 2019-0 19 00:00: 00 Yes 1{tbl} Take 1 tablet by mouth daily. [facility] acetaZOLAMI DE 250 mg tablet 2019-0 03-11 00:00: 00 Yes 1{tbl} Take 1 tablet by mouth daily. [facility] acetaZOLAMI DE 250 mg tablet 2019-0 19 00:00: 00 Yes 1{tbl} Take 1 tablet by mouth daily. [facility] acetaZOLAMI DE 250 mg tablet 2019-0 19 00:00: 00 Yes 1{tbl} Take 1 tablet by mouth daily. [facility] acetaZOLAMI DE 250 mg tablet 2019-0 -19 00:00: 00 Yes 1{tbl} Take 1 tablet by mouth daily. [facility] acetaZOLAMI DE 250 mg tablet 2020-0 -19 00:00: 00 Yes 1{tbl} Take 1 tablet by mouth daily. [facility] acetaZOLAMI DE 250 mg tablet 2020-0 6-19 00:00: 00 Yes 1{tbl} Take 1 tablet by mouth daily. [facility] acetaZOLAMI DE 250 mg tablet 03-11 00:00: 00 Yes 1{tbl} Take 1 tablet by mouth daily. [facility] acetaZOLAMI DE 250 mg tablet 03-11 00:00: 00 06-15 00:00 :00 No 1{tbl} Take 1 tablet by mouth daily. [facility] acetaZOLAMI DE 250 mg tablet 03-11 00:00: 00 06-15 00:00 :00 No 1{tbl} Take 1 tablet by mouth daily. [facility] acetaZOLAMI DE 250 mg tablet 03-11 00:00: 00 06-15 00:00 :00 No 1{tbl} Take 1 tablet by mouth daily. [facility] predniSONE 10 mg tablet 03-11 00:00: 00 04-07 00:00 :00 No 10mg Take 10 mg by mouth daily. [facility] predniSONE 10 mg tablet 03-11 00:00: 00 04-07 00:00 :00 No 10mg Take 10 mg by mouth daily. [facility] predniSONE 10 mg tablet 03-11 00:00: 00 04-07 00:00 :00 No 10mg Take 10 mg by mouth daily. [facility] predniSONE 10 mg tablet 03-11 00:00: 00 04-07 00:00 :00 No 10mg Take 10 mg by mouth daily. [facility] predniSONE 10 mg tablet 03-11 00:00: 00 04-07 00:00 :00 No 10mg Take 10 mg by mouth daily. [facility] predniSONE 10 mg tablet 03-11 00:00: 00 04-07 00:00 :00 No 10mg Take 10 mg by mouth daily. [facility] predniSONE 10 mg tablet 03-11 00:00: 00 04-07 00:00 :00 No 10mg Take 10 mg by mouth daily. [facility] predniSONE 10 mg tablet 2019-0 6-19 00:00: 00 16 00:00 :00 No 10mg Take 10 mg by mouth daily. [facility] nicotine (NICODERM) 14 mg/24 hr patch 1 Patch 2019-0 6-15 02:00: 00 16 02:06 :00 No 1{patch } 1 Patch, Topical, Administer over 24 Hours, ONCE, 1 dose, 03/06/20 at 2100, Routine [facility] doxycycline hyclate 100 mg capsule 2019-0 6-15 00:00: 00 Yes [id number] 100mg Take 1 capsule by mouth 2 (two) times daily. [facility] ALPRAZolam 0.5 mg tablet 2019-0 6-15 00:00: 00 Yes [id number] .5mg Take 1 tablet by mouth 2 (two) times daily as needed (anxiety). [facility] doxycycline hyclate 100 mg capsule 2019-0 6-15 00:00: 00 Yes [id number] 100mg Take 1 capsule by mouth 2 (two) times daily. [facility] ALPRAZolam 0.5 mg tablet 2019-0 6-15 00:00: 00 Yes [id number] .5mg Take 1 tablet by mouth 2 (two) times daily as needed (anxiety). [facility] doxycycline hyclate 100 mg capsule 2019-0 6-15 00:00: 00 Yes [id number] 100mg Take 1 capsule by mouth 2 (two) times daily. [facility] ALPRAZolam 0.5 mg tablet 2019-0 6-15 00:00: 00 Yes [id number] .5mg Take 1 tablet by mouth 2 (two) times daily as needed (anxiety). [facility] doxycycline hyclate 100 mg capsule 2019-0 6-15 00:00: 00 Yes [id number] 100mg Take 1 capsule by mouth 2 (two) times daily. [facility] ALPRAZolam 0.5 mg tablet 2020-0 6-15 00:00: 00 Yes [id number] .5mg Take 1 tablet by mouth 2 (two) times daily as needed (anxiety). [facility] doxycycline hyclate 100 mg capsule 2020-0 6-15 00:00: 00 Yes [id number] 100mg Take 1 capsule by mouth 2 (two) times daily. [facility] mg tablet 2020-0 6-15 00:00: 00 Yes [id number] .5mg Take 1 tablet by mouth 2 (two) times daily as needed (anxiety). [facility] do[facility] hyclate 100 mg capsule 2020-0 6-15 00:00: 00 Yes [id number] 100mg Take 1 capsule by mouth 2 (two) times daily. [facility] ALPRAZolam 0.5 mg tablet 2020-0 6-15 00:00: 00 Yes [id number] .5mg Take 1 tablet by mouth 2 (two) times daily as needed (anxiety). [facility] doxycycline hyclate 100 mg capsule 2020-0 6-15 00:00: 00 Yes [id number] 100mg Take 1 capsule by mouth 2 (two) times daily. [facility] ALPRAZolam 0.5 mg tablet 2020-0 6-15 00:00: 00 Yes [id number] .5mg Take 1 tablet by mouth 2 (two) times daily as needed (anxiety). [facility] doxycycline hyclate 100 mg capsule 2020-0 6-15 00:00: 00 Yes [id number] 100mg Take 1 capsule by mouth 2 (two) times daily. [facility] ALPRAZ[facility]am 0.5 mg tablet 2020-0 6-15 00:00: 00 Yes [id number] .5mg Take 1 tablet by mouth 2 (two) times daily as needed (anxiety). [facility] doxycycline hyclate 100 mg capsule 2020-0 6-15 00:00: 00 Yes [id number] 100mg Take 1 capsule by mouth 2 (two) times daily. [facility] ALPRAZolam 0.5 mg tablet 2020-0 6-15 00:00: 00 Yes [id number] .5mg Take 1 tablet by mouth 2 (two) times daily as needed (anxiety). [facility] doxycycline hyclate 100 mg capsule 2020-0 6-15 00:00: 00 Yes [id number] 100mg Take 1 capsule by mouth 2 (two) times daily. [facility] ALPRAZolam 0.5 mg tablet 2020-0 6-15 00:00: 00 Yes [id number] .5mg Take 1 tablet by mouth 2 (two) times daily as needed (anxiety). [facility] doxycycline hyclate 100 mg capsule 2020-0 6-15 00:00: 00 Yes [id number] 100mg Take 1 capsule by mouth 2 (two) times daily. [facility] ALPRAZolam 0.5 mg tablet 2020-0 6-15 00:00: 00 Yes [id number] .5mg Take 1 tablet by mouth 2 (two) times daily as needed (anxiety). [facility] doxycycline hyclate 100 mg capsule 2020-0 6-15 00:00: 00 Yes [id number] 100mg Take 1 capsule by mouth 2 (two) times daily. [facility] ALPRAZolam 0.5 mg tablet 2020-0 6-15 00:00: 00 Yes [id number] .5mg Take 1 tablet by mouth 2 (two) times daily as needed (anxiety). [facility] doxycycline hyclate 100 mg capsule 2020-0 6-15 00:00: 00 Yes [id number] 100mg Take 1 capsule by mouth 2 (two) times daily. [facility] ALPRAZolam 0.5 mg tablet 2020-0 6-15 00:00: 00 Yes [id number] .5mg Take 1 tablet by mouth 2 (two) times daily as needed (anxiety). [facility] doxycycline hyclate 100 mg capsule 2020-0 6-15 00:00: 00 Yes [id number] 100mg Take 1 capsule by mouth 2 (two) times daily. [facility] ALPRAZolam 0.5 mg tablet 2020-0 6-15 00:00: 00 Yes [id number] .5mg Take 1 tablet by mouth 2 (two) times daily as needed (anxiety). [facility] doxycycline hyclate 100 mg capsule 2020-0 6-15 00:00: 00 Yes [id number] 100mg Take 1 capsule by mouth 2 (two) times daily. [facility] ALPRAZ[facility]am 0.5 mg tablet 2020-0 6-15 00:00: 00 Yes [id number] .5mg Take 1 tablet by mouth 2 (two) times daily as needed (anxiety). [facility] doxycycline hyclate 100 mg capsule 2020-0 6-15 00:00: 00 Yes [id number] 100mg Take 1 capsule by mouth 2 (two) times daily. [facility] ALPR[facility]am 0.5 mg tablet 2020-0 6-15 00:00: 00 Yes [id number] .5mg Take 1 tablet by mouth 2 (two) times daily as needed (anxiety). [facility] doxycycline hyclate 100 mg capsule 2020-0 6-15 00:00: 00 Yes [id number] 100mg Take 1 capsule by mouth 2 (two) times daily. [facility] ALPRAZolam 0.5 mg tablet 2020-0 6-15 00:00: 00 Yes [id number] .5mg Take 1 tablet by mouth 2 (two) times daily as needed (anxiety). [facility] doxycycline hyclate 100 mg capsule 2020-0 6-15 00:00: 00 Yes [id number] 100mg Take 1 capsule by mouth 2 (two) times daily. [facility] ALPRAZolam 0.5 mg tablet 2020-0 6-15 00:00: 00 Yes [id number] .5mg Take 1 tablet by mouth 2 (two) times daily as needed (anxiety). [facility] doxycycline hyclate 100 mg capsule 2020-0 6-15 00:00: 00 Yes [id number] 100mg Take 1 capsule by mouth 2 (two) times daily. [facility] ALPRAZolam 0.5 mg tablet 2020-0 6-15 00:00: 00 Yes [id number] .5mg Take 1 tablet by mouth 2 (two) times daily as needed (anxiety). [facility] doxycycline hyclate 100 mg capsule 2020-0 6-15 00:00: 00 Yes [id number] 100mg Take 1 capsule by mouth 2 (two) times daily. [facility] ALPRAZolam 0.5 mg tablet 2020-0 6-15 00:00: 00 Yes [id number] .5mg Take 1 tablet by mouth 2 (two) times daily as needed (anxiety). [facility] doxycycline hyclate 100 mg capsule 2019-0 6-15 00:00: 00 Yes [id number] 100mg Take 1 capsule by mouth 2 (two) times daily. [facility] ALPRAZolam 0.5 mg tablet 2019-0 6-15 00:00: 00 Yes [id number] .5mg Take 1 tablet by mouth 2 (two) times daily as needed (anxiety). [facility] doxycycline hyclate 100 mg capsule 2020-0 6-15 00:00: 00 Yes [id number] 100mg Take 1 capsule by mouth 2 (two) times daily. [facility] ALPRAZolam 0.5 mg tablet 2019-0 6-15 00:00: 00 Yes [id number] .5mg Take 1 tablet by mouth 2 (two) times daily as needed (anxiety). [facility] doxycycline hyclate 100 mg capsule 2019-0 6-15 00:00: 00 04-07 00:00 :00 No [id number] 100mg Take 1 capsule by mouth 2 (two) times daily. [facility] ALPRAZolam 0.5 mg tablet 2019-0 6-15 00:00: 00 04-07 00:00 :00 No [id number] .[id number] Take 1 tablet by mouth 2 (two) times daily as needed (anxiety). [facility] doxycycline hyclate 100 mg capsule 2019-0 6-15 00:00: 00 04-07 00:00 :00 No [id number] 100mg Take 1 capsule by mouth 2 (two) times daily. [facility] ALPRAZolam 0.5 mg tablet 2019-0 6-15 00:00: 00 04-07 00:00 :00 No [id number] .[id number] Take 1 tablet by mouth 2 (two) times daily as needed (anxiety). [facility] doxycycline hyclate 100 mg capsule 2019-0 6-15 00:00: 00 04-07 00:00 :00 No [id number] 100mg Take 1 capsule by mouth 2 (two) times daily. [facility] ALPRAZolam 0.5 mg tablet 2019-0 6-15 00:00: 04-07 00:00 :00 No [id number] .5mg Take 1 tablet by mouth 2 (two) times daily as needed (anxiety). [facility] doxycycline hyclate 100 mg capsule 2019-0 6-15 00:00: 00 04-07 00:00 :00 No [id number] 100mg Take 1 capsule by mouth 2 (two) times daily. [facility] ALPRAZolam 0.5 mg tablet 2019-0 6-15 00:00: 00 04-07 00:00 :00 No [id number] .5mg Take 1 tablet by mouth 2 (two) times daily as needed (anxiety). [facility] doxycycline hyclate 100 mg capsule 2019-0 6-15 00:00: 04-07 00:00 :00 No [id number] 100mg Take 1 capsule by mouth 2 (two) times daily. [facility] ALPRAZolam 0.5 mg tablet 2019-0 6-15 00:00: 00 04-07 00:00 :00 No [id number] .5mg Take 1 tablet by mouth 2 (two) times daily as needed (anxiety). [facility] doxycycline hyclate 100 mg capsule 2019-0 6-15 00:00: 00 04-07 00:00 :00 No [id number] 100mg Take 1 capsule by mouth 2 (two) times daily. [facility] ALPRAZolam 0.5 mg tablet 2019-0 6-15 00:00: 00 04-07 00:00 :00 No [id number] .5mg Take 1 tablet by mouth 2 (two) times daily as needed (anxiety). [facility] doxycycline hyclate 100 mg capsule 2019-0 6-15 00:00: 00 04-07 00:00 :00 No [id number] 100mg Take 1 capsule by mouth 2 (two) times daily. [facility] ALPRAZolam 0.5 mg tablet 03-07 00:00: 00 04-07 00:00 :00 No [id number] .5mg Take 1 tablet by mouth 2 (two) times daily as needed (anxiety). [facility] doxycycline hyclate 100 mg capsule 03-07 00:00: 00 04-07 00:00 :00 No [id number] 100mg Take 1 capsule by mouth 2 (two) times daily. [facility] ALPRAZolam 0.5 mg tablet 03-07 00:00: 00 04-07 00:00 :00 No [id number] .5mg Take 1 tablet by mouth 2 (two) times daily as needed (anxiety). [facility] doxycycline hyclate (Vibramycin ) capsule 100 mg 03-06 18:45: 00 Yes 100mg 100 mg, Oral, BID, First dose on 03/06/20 at 1345, Until Discontinu ed, GRICEL
Re ason for Anti-Infec tive: Empiric Therapy for Suspected Infection< br>Empiric Therapy Site: Respirator y
Durat ion of therapy: 72 hours [facility] furosemide (LASIX) tablet 20 mg 03-06 14:00: 00 Yes 20mg 20 mg, Oral, DAILY, First dose on 03/06/20 at 0900, Until Discontinu ed, Routine [facility] buPROPion XL (WELLBUTRIN XL) tablet 150 mg 03-06 14:00: 00 Yes 150mg 150 mg, Oral, DAILY, First dose on 03/06/20 at 0900, Until Discontinu ed, Routine [facility] predniSONE (DELTASONE) tablet 40 mg 03-06 14:00: 00 Yes 40mg 40 mg, Oral, DAILY, First dose on 03/06/20 at 0900, Until Discontinu ed, Routine [facility] ALPRAZolam (XANAX) tablet 0.5 mg 03-05 21:32: 07 Yes .5mg 0.5 mg, Oral, BIDPRN, Starting 03/05/20 at 1632, Until Discontinu ed, Routine, anxiety [facility] NaCl 0.9% (NS) IV infusion 1,000 mL 03-05 19:45: 00 03-06 02:44 :00 No 1000mL at 75 mL/hr, IV Infusion, CONTINUOUS , Starting 03/05/20 at 1445, Until 03/05/20 at 2144, Routine [facility] levalbutero l (XOPENEX) nebulizer solution 0.63 mg 03-05 14:00: 00 Yes .63mg 0.63 mg, Inhalation , Q2HPRN, Starting 03/05/20 at 0900, Until Discontinu ed, Routine, Wheezing, Shortness of Breath
Approved by: [employer] PROVIDER [facility] ipratropium -albuterol (DUONEB) 0.5 mg-3 mg(2.5 mg base)/3 mL nebulizer solution 3 mL 03-05 14:00: 00 Yes 3mL 3 mL, Inhalation , Q4H, First dose on [facility] 03/05/20 at 0900, Until Discontinu ed, Routine [facility] sodium chloride 7% (HYPER-MEDARDO) nebulizer solution 4 mL 03-05 14:00: 00 Yes 4mL 4 mL, Inhalation , BID, First dose on [facility] 03/05/20 at 0900, Until Discontinu ed, Routine [facility] enoxaparin (LOVENOX) injection 30 mg 03-05 14:00: 00 Yes 30mg 30 mg, Subcutaneo us, DAILY, First dose on [facility] 03/05/20 at 0900, Until Discontinu ed, Routine [facility] budesonide (PULMICORT RESPULE) nebulizer solution 0.25 mg 03-05 13:00: 00 Yes .25mg 0.25 mg, Inhalation , BID, First dose on 03/05/20 at 0800, Until Discontinu ed, Routine
[employer] member approving Restricted medication : MEGADC [facility] methylpredn isolone sod succ (SOLU-MEDRO L) injection 60 mg 03-05 05:00: 00 03-05 21:31 :22 No 60mg 60 mg, Slow IV Push, Q6H, First dose on Sat03/05/20 at 0000, Until Discontinu ed, Routine [facility] NaCl 0.9% (NS) IV infusion 1,000 mL 03-05 03:00: 00 03-05 19:39 :51 No 1000mL at 75 mL/hr, IV Infusion, CONTINUOUS , Starting Sat03/04/20 at 2200, Until Sat03/05/20 at 1439, Routine [facility] nicotine (NICODERM) 14 mg/24 hr patch 1 Patch 03-05 02:45: 00 03-06 02:50 :00 No 1{patch } 1 Patch, Topical, Administer over 24 Hours, ONCE, 1 dose, Sat03/04/20 at 2145, Routine [facility] budesonide (PULMICORT RESPULE) nebulizer solution 0.25 mg 03-05 01:15: 00 03-05 12:03 :45 No .25mg 0.25 mg, Inhalation , BID, First dose on Sat03/04/20 at 2014, Until Discontinu ed, Routine
[employer] member approving Restricted medication : MEGADC [facility] levalbutero l (XOPENEX) nebulizer solution 0.63 mg 03-05 01:15: 00 03-05 13:57 :55 No .63mg 0.63 mg, Inhalation , QID, First dose on Sat03/04/20 at 2014, Until Discontinu ed, Routine
Approved by: [employer] PROVIDER [facility] ipratropium (ATROVENT) 0.02 % nebulizer solution 0.5 mg 03-05 01:15: 00 03-05 13:57 :23 No .5mg 0.5 mg, Inhalation , QID, First dose on Sat03/04/20 at 2014, Until Discontinu ed, Routine [facility] glucagon (GLUCAGEN DIAGNOSTIC KIT) injection 1 mg 03-05 00:49: 46 Yes 1mg 1 mg, Intramuscu lar, PRN, Starting Sat03/04/20 at 1949, Until Discontinu ed, GRICEL, Blood Glucose < or = 70 mg/dL and patient is unable to swallow or has mental changes. [facility] dextrose 50 % in water (D50W) injection 25 mL 03-05 00:49: 46 Yes 25mL 25 mL, Slow IV Push, PRN, Starting Sat03/04/20 at 1949, Until Discontinu ed, GRICEL, Blood Glucose < or = 70 mg/dL and patient is unable to swallow or has mental status changes. [facility] methylpredn isolone sod succ (SOLU-MEDRO L) injection 125 mg 03-04 22:15: 00 03-04 21:13 :00 No 125mg 125 mg, Slow IV Push, ONCE NOW, 1 dose, Sat03/04/20 at 1715, GRICEL [facility] ipratropium -albuterol (DUONEB) 0.5 mg-3 mg(2.5 mg base)/3 mL nebulizer solution 3 mL 03-04 21:15: 00 03-04 21:07 :00 No 3mL 3 mL, Inhalation , ONCE NOW, 1 dose, Sat03/04/20 at 1615, Routine [facility] predniSONE 20 mg tablet 03-04 00:00: 00 03-07 00:00 :00 No [id number] 20mg Take 1 tablet by mouth daily. [facility] sodium chloride 0.9 % nebulizer solution 03-02 00:00: 00 04-07 00:00 :00 No 1{each} 1 Each by Nebulizati on route every 6 (six) hours as needed. [facility] sodium chloride 0.9 % nebulizer solution 03-02 00:00: 00 04-07 00:00 :00 No 1{each} 1 Each by Nebulizati on route every 6 (six) hours as needed. [facility] sodium chloride 0.9 % nebulizer solution 03-02 00:00: 00 04-07 00:00 :00 No 1{each} 1 Each by Nebulizati on route every 6 (six) hours as needed. [facility] sodium chloride 0.9 % nebulizer solution 03-02 00:00: 04-07 00:00 :00 No 1{each} 1 Each by Nebulizati on route every 6 (six) hours as needed. [facility] sodium chloride 0.9 % nebulizer solution 03-02 00:00: 04-07 00:00 :00 No 1{each} 1 Each by Nebulizati on route every 6 (six) hours as needed. [facility] sodium chloride 0.9 % nebulizer solution 03-02 00:00: 04-07 00:00 :00 No 1{each} 1 Each by Nebulizati on route every 6 (six) hours as needed. [facility] sodium chloride 0.9 % nebulizer solution 03-02 00:00: 04-07 00:00 :00 No 1{each} 1 Each by Nebulizati on route every 6 (six) hours as needed. [facility] sodium chloride 0.9 % nebulizer solution 03-02 00:00: 04-07 00:00 :00 No 1{each} 1 Each by Nebulizati on route every 6 (six) hours as needed. [facility] buPROPion XL (WELLBUTRIN XL) 150 mg 24 hr tablet 03-01 00:00: 00 Yes [id number] 150mg Take 1 tablet by mouth daily. [facility] sodium chloride 0.9 % nebulizer solution 03-01 00:00: 00 Yes [id number] 3mL Use 3 mL as directed every 6 (six) hours as needed for Wheezing (cough/con gestion). [facility] ALPRAZolam 0.5 mg tablet 03-01 00:00: 00 Yes [id number] .5mg Take 1 tablet by mouth 2 (two) times daily as needed (anxiety). [facility] fluticasone furoate-telma anterol (BREO ELLIPTA) 200-25 mcg/dose DsDv 03-01 00:00: 00 Yes [id number] 200ug Inhale 200 mcg daily. [facility] ipratropium 0.02 % nebulizer solution 03-01 00:00: 00 Yes [id number] .5mg Inhale 2.5 mL every 6 (six) hours as needed for Wheezing or Shortness of Breath. [facility] levalbutero l 0.63 mg/3 mL nebulizer solution 03-01 00:00: 00 Yes [id number] .63mg Inhale 0.63 mg every 6 (six) hours as needed for Wheezing or Shortness of Breath. [facility] buPROPion XL (WELLBUTRIN XL) 150 mg 24 hr tablet 03-01 00:00: 00 Yes [id number] 150mg Take 1 tablet by mouth daily. [facility] sodium chloride 0.9 % nebulizer solution 03-01 00:00: 00 Yes [id number] 3mL Use 3 mL as directed every 6 (six) hours as needed for Wheezing (cough/con gestion). [facility] ALPRAZolam 0.5 mg tablet 03-01 00:00: 00 Yes [id number] .5mg Take 1 tablet by mouth 2 (two) times daily as needed (anxiety). [facility] fluticasone furoate-telma anterol (BREO ELLIPTA) 200-25 mcg/dose DsDv 03-01 00:00: 00 Yes [id number] 200ug Inhale 200 mcg daily. [facility] ipratropium 0.02 % nebulizer solution 03-01 00:00: 00 Yes [id number] .5mg Inhale 2.5 mL every 6 (six) hours as needed for Wheezing or Shortness of Breath. [facility] levalbutero l 0.63 mg/3 mL nebulizer solution 03-01 00:00: 00 Yes [id number] .63mg Inhale 0.63 mg every 6 (six) hours as needed for Wheezing or Shortness of Breath. [facility] buPROPion XL (WELLBUTRIN XL) 150 mg 24 hr tablet 03-01 00:00: 00 Yes [id number] 150mg Take 1 tablet by mouth daily. [facility] sodium chloride 0.9 % nebulizer solution 03-01:00: 00 Yes [id number] 3mL Use 3 mL as directed every 6 (six) hours as needed for Wheezing (cough/con gestion). [facility] fluticasone furoate-telma anterol (BREO ELLIPTA) 200-25 mcg/dose DsDv 03-01 00:00: 00 Yes [id number] 200ug Inhale 200 mcg daily. [facility] ipratropium 0.02 % nebulizer solution 03-01 00:00: 00 Yes [id number] .5mg Inhale 2.5 mL every 6 (six) hours as needed for Wheezing or Shortness of Breath. [facility] levalbutero l 0.63 mg/3 mL nebulizer solution 03-01 00:00: 00 Yes [id number] .63mg Inhale 0.63 mg every 6 (six) hours as needed for Wheezing or Shortness of Breath. [facility] buPROPion XL (WELLBUTRIN XL) 150 mg 24 hr tablet 03-01 00:00: 00 Yes [id number] 150mg Take 1 tablet by mouth daily. [facility] sodium chloride 0.9 % nebulizer solution 03-01 00:00: 00 Yes [id number] 3mL Use 3 mL as directed every 6 (six) hours as needed for Wheezing (cough/con gestion). [facility] fluticasone furoate-telma anterol (BREO ELLIPTA) 200-25 mcg/dose DsDv 03-01 00:00: 00 Yes [id number] 200ug Inhale 200 mcg daily. [facility] ipratropium 0.02 % nebulizer solution 03-01 00:00: 00 Yes [id number] .5mg Inhale 2.5 mL every 6 (six) hours as needed for Wheezing or Shortness of Breath. [facility] levalbutero l 0.63 mg/3 mL nebulizer solution 03-01 00:00: 00 Yes [id number] .63mg Inhale 0.63 mg every 6 (six) hours as needed for Wheezing or Shortness of Breath. [facility] buPROPion XL (WELLBUTRIN XL) 150 mg 24 hr tablet 03-01 00:00: 00 Yes [id number] 150mg Take 1 tablet by mouth daily. [facility] sodium chloride 0.9 % nebulizer solution 03-01 00:00: 00 Yes [id number] 3mL Use 3 mL as directed every 6 (six) hours as needed for Wheezing (cough/con gestion). [facility] fluticasone furoate-telma anterol (BREO ELLIPTA) 200-25 mcg/dose DsDv 03-01 00:00: 00 Yes [id number] 200ug Inhale 200 mcg daily. [facility] ipratropium 0.02 % nebulizer solution 03-01 00:00: 00 Yes [id number] .5mg Inhale 2.5 mL every 6 (six) hours as needed for Wheezing or Shortness of Breath. [facility] levalbutero l 0.63 mg/3 mL nebulizer solution 03-01 00:00: 00 Yes [id number] .63mg Inhale 0.63 mg every 6 (six) hours as needed for Wheezing or Shortness of Breath. [facility] buPROPion XL (WELLBUTRIN XL) 150 mg 24 hr tablet 03-01 00:00: 00 Yes [id number] 150mg Take 1 tablet by mouth daily. [facility] sodium chloride 0.9 % nebulizer solution 03-01 00:00: 00 Yes [id number] 3mL Use 3 mL as directed every 6 (six) hours as needed for Wheezing (cough/con gestion). [facility] fluticasone furoate-telma anterol (BREO ELLIPTA) 200-25 mcg/dose DsDv 03-01 00:00: 00 Yes [id number] 200ug Inhale 200 mcg daily. [facility] ipratropium 0.02 % nebulizer solution 03-01 00:00: 00 Yes [id number] .5mg Inhale 2.5 mL every 6 (six) hours as needed for Wheezing or Shortness of Breath. [facility] levalbutero l 0.63 mg/3 mL nebulizer solution 03-01 00:00: 00 Yes [id number] .63mg Inhale 0.63 mg every 6 (six) hours as needed for Wheezing or Shortness of Breath. [facility] buPROPion XL (WELLBUTRIN XL) 150 mg 24 hr tablet 03-01 00:00: 00 Yes [id number] 150mg Take 1 tablet by mouth daily. [facility] sodium chloride 0.9 % nebulizer solution 03-01 00:00: 00 Yes [id number] 3mL Use 3 mL as directed every 6 (six) hours as needed for Wheezing (cough/con gestion). [facility] fluticasone furoate-telma anterol (BREO ELLIPTA) 200-25 mcg/dose DsDv 03-01 00:00: 00 Yes [id number] 200ug Inhale 200 mcg daily. [facility] ipratropium 0.02 % nebulizer solution 03-01 00:00: 00 Yes [id number] .5mg Inhale 2.5 mL every 6 (six) hours as needed for Wheezing or Shortness of Breath. [facility] levalbutero l 0.63 mg/3 mL nebulizer solution 03-01 00:00: 00 Yes [id number] .63mg Inhale 0.63 mg every 6 (six) hours as needed for Wheezing or Shortness of Breath. [facility] buPROPion XL (WELLBUTRIN XL) 150 mg 24 hr tablet 03-01 00:00: 00 Yes [id number] 150mg Take 1 tablet by mouth daily. [facility] sodium chloride 0.9 % nebulizer solution 03-01 00:00: 00 Yes [id number] 3mL Use 3 mL as directed every 6 (six) hours as needed for Wheezing (cough/con gestion). [facility] fluticasone furoate-telma anterol (BREO ELLIPTA) 200-25 mcg/dose DsDv 03-01 00:00: 00 Yes [id number] 200ug Inhale 200 mcg daily. [facility] ipratropium 0.02 % nebulizer solution 03-01 00:00: 00 Yes [id number] .5mg Inhale 2.5 mL every 6 (six) hours as needed for Wheezing or Shortness of Breath. [facility] levalbutero l 0.63 mg/3 mL nebulizer solution 03-01 00:00: 00 Yes [id number] .63mg Inhale 0.63 mg every 6 (six) hours as needed for Wheezing or Shortness of Breath. [facility] buPROPion XL (WELLBUTRIN XL) 150 mg 24 hr tablet 03-01 00:00: 00 Yes [id number] 150mg Take 1 tablet by mouth daily. [facility] sodium chloride 0.9 % nebulizer solution 03-01 00:00: 00 Yes [id number] 3mL Use 3 mL as directed every 6 (six) hours as needed for Wheezing (cough/con gestion). [facility] fluticasone furoate-telma anterol (BREO ELLIPTA) 200-25 mcg/dose DsDv 03-01 00:00: 00 Yes [id number] 200ug Inhale 200 mcg daily. [facility] ipratropium 0.02 % nebulizer solution 03-01 00:00: 00 Yes [id number] .5mg Inhale 2.5 mL every 6 (six) hours as needed for Wheezing or Shortness of Breath. [facility] levalbutero l 0.63 mg/3 mL nebulizer solution 03-01 00:00: 00 Yes [id number] .63mg Inhale 0.63 mg every 6 (six) hours as needed for Wheezing or Shortness of Breath. [facility] buPROPion XL (WELLBUTRIN XL) 150 mg 24 hr tablet 03-01 00:00: 00 Yes [id number] 150mg Take 1 tablet by mouth daily. [facility] sodium chloride 0.9 % nebulizer solution 03-01 00:00: 00 Yes [id number] 3mL Use 3 mL as directed every 6 (six) hours as needed for Wheezing (cough/con gestion). [facility] fluticasone furoate-telma anterol (BREO ELLIPTA) 200-25 mcg/dose DsDv 03-01 00:00: 00 Yes [id number] 200ug Inhale 200 mcg daily. [facility] ipratropium 0.02 % nebulizer solution 03-01 00:00: 00 Yes [id number] .5mg Inhale 2.5 mL every 6 (six) hours as needed for Wheezing or Shortness of Breath. [facility] levalbutero l 0.63 mg/3 mL nebulizer solution 03-01 00:00: 00 Yes [id number] .63mg Inhale 0.63 mg every 6 (six) hours as needed for Wheezing or Shortness of Breath. [facility] buPROPion XL (WELLBUTRIN XL) 150 mg 24 hr tablet 03-01 00:00: 00 Yes [id number] 150mg Take 1 tablet by mouth daily. [facility] sodium chloride 0.9 % nebulizer solution 03-01 00:00: 00 Yes [id number] 3mL Use 3 mL as directed every 6 (six) hours as needed for Wheezing (cough/con gestion). [facility] fluticasone furoate-telma anterol (BREO ELLIPTA) 200-25 mcg/dose DsDv 03-01 00:00: 00 Yes [id number] 200ug Inhale 200 mcg daily. [facility] ipratropium 0.02 % nebulizer solution 03-01 00:00: 00 Yes [id number] .5mg Inhale 2.5 mL every 6 (six) hours as needed for Wheezing or Shortness of Breath. [facility] levalbutero l 0.63 mg/3 mL nebulizer solution 03-01 00:00: 00 Yes [id number] .63mg Inhale 0.63 mg every 6 (six) hours as needed for Wheezing or Shortness of Breath. [facility] buPROPion XL (WELLBUTRIN XL) 150 mg 24 hr tablet 03-01 00:00: 00 Yes [id number] 150mg Take 1 tablet by mouth daily. [facility] sodium chloride 0.9 % nebulizer solution 03-01 00:00: 00 Yes [id number] 3mL Use 3 mL as directed every 6 (six) hours as needed for Wheezing (cough/con gestion). [facility] fluticasone furoate-telma anterol (BREO ELLIPTA) 200-25 mcg/dose DsDv 03-01 00:00: 00 Yes [id number] 200ug Inhale 200 mcg daily. [facility] ipratropium 0.02 % nebulizer solution 03-01 00:00: 00 Yes [id number] .5mg Inhale 2.5 mL every 6 (six) hours as needed for Wheezing or Shortness of Breath. [facility] levalbutero l 0.63 mg/3 mL nebulizer solution 03-01 00:00: 00 Yes [id number] .63mg Inhale 0.63 mg every 6 (six) hours as needed for Wheezing or Shortness of Breath. [facility] buPROPion XL (WELLBUTRIN XL) 150 mg 24 hr tablet 03-01 00:00: 00 Yes [id number] 150mg Take 1 tablet by mouth daily. [facility] sodium chloride 0.9 % nebulizer solution 03-01 00:00: 00 Yes [id number] 3mL Use 3 mL as directed every 6 (six) hours as needed for Wheezing (cough/con gestion). [facility] fluticasone furoate-telma anterol (BREO ELLIPTA) 200-25 mcg/dose DsDv 03-01 00:00: 00 Yes [id number] 200ug Inhale 200 mcg daily. [facility] ipratropium 0.02 % nebulizer solution 03-01 00:00: 00 Yes [id number] .5mg Inhale 2.5 mL every 6 (six) hours as needed for Wheezing or Shortness of Breath. [facility] levalbutero l 0.63 mg/3 mL nebulizer solution 03-01 00:00: 00 Yes [id number] .63mg Inhale 0.63 mg every 6 (six) hours as needed for Wheezing or Shortness of Breath. [facility] buPROPion XL (WELLBUTRIN XL) 150 mg 24 hr tablet 03-01 00:00: 00 Yes [id number] 150mg Take 1 tablet by mouth daily. [facility] sodium chloride 0.9 % nebulizer solution 03-01 00:00: 00 Yes [id number] 3mL Use 3 mL as directed every 6 (six) hours as needed for Wheezing (cough/con gestion). [facility] fluticasone furoate-telma anterol (BREO ELLIPTA) 200-25 mcg/dose DsDv 03-01 00:00: 00 Yes [id number] 200ug Inhale 200 mcg daily. [facility] ipratropium 0.02 % nebulizer solution 03-01 00:00: 00 Yes [id number] .5mg Inhale 2.5 mL every 6 (six) hours as needed for Wheezing or Shortness of Breath. [facility] levalbutero l 0.63 mg/3 mL nebulizer solution 03-01 00:00: 00 Yes [id number] .63mg Inhale 0.63 mg every 6 (six) hours as needed for Wheezing or Shortness of Breath. [facility] buPROPion XL (WELLBUTRIN XL) 150 mg 24 hr tablet 03-01 00:00: 00 Yes [id number] 150mg Take 1 tablet by mouth daily. [facility] sodium chloride 0.9 % nebulizer solution 03-01 00:00: 00 Yes [id number] 3mL Use 3 mL as directed every 6 (six) hours as needed for Wheezing (cough/con gestion). [facility] fluticasone furoate-telma anterol (BREO ELLIPTA) 200-25 mcg/dose DsDv 03-01 00:00: 00 Yes [id number] 200ug Inhale 200 mcg daily. [facility] ipratropium 0.02 % nebulizer solution 03-01 00:00: 00 Yes [id number] .5mg Inhale 2.5 mL every 6 (six) hours as needed for Wheezing or Shortness of Breath. [facility] levalbutero l 0.63 mg/3 mL nebulizer solution 03-01 00:00: 00 Yes [id number] .63mg Inhale 0.63 mg every 6 (six) hours as needed for Wheezing or Shortness of Breath. [facility] buPROPion XL (WELLBUTRIN XL) 150 mg 24 hr tablet 03-01 00:00: 00 Yes [id number] 150mg Take 1 tablet by mouth daily. [facility] sodium chloride 0.9 % nebulizer solution 03-01 00:00: 00 Yes [id number] 3mL Use 3 mL as directed every 6 (six) hours as needed for Wheezing (cough/con gestion). [facility] fluticasone furoate-telma anterol (BREO ELLIPTA) 200-25 mcg/dose DsDv 03-01 00:00: 00 Yes [id number] 200ug Inhale 200 mcg daily. [facility] ipratropium 0.02 % nebulizer solution 03-01 00:00: 00 Yes [id number] .5mg Inhale 2.5 mL every 6 (six) hours as needed for Wheezing or Shortness of Breath. [facility] levalbutero l 0.63 mg/3 mL nebulizer solution 03-01 00:00: 00 Yes [id number] .63mg Inhale 0.63 mg every 6 (six) hours as needed for Wheezing or Shortness of Breath. [facility] buPROPion XL (WELLBUTRIN XL) 150 mg 24 hr tablet 03-01 00:00: 00 Yes [id number] 150mg Take 1 tablet by mouth daily. [facility] sodium chloride 0.9 % nebulizer solution 03-01 00:00: 00 Yes [id number] 3mL Use 3 mL as directed every 6 (six) hours as needed for Wheezing (cough/con gestion). [facility] fluticasone furoate-telma anterol (BREO ELLIPTA) 200-25 mcg/dose DsDv 03-01 00:00: 00 Yes [id number] 200ug Inhale 200 mcg daily. [facility] ipratropium 0.02 % nebulizer solution 03-01 00:00: 00 Yes [id number] .5mg Inhale 2.5 mL every 6 (six) hours as needed for Wheezing or Shortness of Breath. [facility] levalbutero l 0.63 mg/3 mL nebulizer solution 03-01 00:00: 00 Yes [id number] .63mg Inhale 0.63 mg every 6 (six) hours as needed for Wheezing or Shortness of Breath. [facility] buPROPion XL (WELLBUTRIN XL) 150 mg 24 hr tablet 03-01 00:00: 00 Yes [id number] 150mg Take 1 tablet by mouth daily. [facility] sodium chloride 0.9 % nebulizer solution 03-01 00:00: 00 Yes [id number] 3mL Use 3 mL as directed every 6 (six) hours as needed for Wheezing (cough/con gestion). [facility] fluticasone furoate-telma anterol (BREO ELLIPTA) 200-25 mcg/dose DsDv 03-01 00:00: 00 Yes [id number] 200ug Inhale 200 mcg daily. [facility] ipratropium 0.02 % nebulizer solution 03-01 00:00: 00 Yes [id number] .5mg Inhale 2.5 mL every 6 (six) hours as needed for Wheezing or Shortness of Breath. [facility] levalbutero l 0.63 mg/3 mL nebulizer solution 03-01 00:00: 00 Yes [id number] .63mg Inhale 0.63 mg every 6 (six) hours as needed for Wheezing or Shortness of Breath. [facility] buPROPion XL (WELLBUTRIN XL) 150 mg 24 hr tablet 03-01 00:00: 00 Yes [id number] 150mg Take 1 tablet by mouth daily. [facility] sodium chloride 0.9 % nebulizer solution 03-01 00:00: 00 Yes [id number] 3mL Use 3 mL as directed every 6 (six) hours as needed for Wheezing (cough/con gestion). [facility] fluticasone furoate-telma anterol (BREO ELLIPTA) 200-25 mcg/dose DsDv 03-01 00:00: 00 Yes [id number] 200ug Inhale 200 mcg daily. [facility] ipratropium 0.02 % nebulizer solution 03-01 00:00: 00 Yes [id number] .5mg Inhale 2.5 mL every 6 (six) hours as needed for Wheezing or Shortness of Breath. [facility] levalbutero l 0.63 mg/3 mL nebulizer solution 03-01 00:00: 00 Yes [id number] .63mg Inhale 0.63 mg every 6 (six) hours as needed for Wheezing or Shortness of Breath. [facility] buPROPion XL (WELLBUTRIN XL) 150 mg 24 hr tablet 03-01 00:00: 00 Yes [id number] 150mg Take 1 tablet by mouth daily. [facility] sodium chloride 0.9 % nebulizer solution 03-01 00:00: 00 Yes [id number] 3mL Use 3 mL as directed every 6 (six) hours as needed for Wheezing (cough/con gestion). [facility] fluticasone furoate-telma anterol (BREO ELLIPTA) 200-25 mcg/dose DsDv 03-01 00:00: 00 Yes [id number] 200ug Inhale 200 mcg daily. [facility] ipratropium 0.02 % nebulizer solution 03-01 00:00: 00 Yes [id number] .5mg Inhale 2.5 mL every 6 (six) hours as needed for Wheezing or Shortness of Breath. [facility] levalbutero l 0.63 mg/3 mL nebulizer solution 03-01 00:00: 00 Yes [id number] .63mg Inhale 0.63 mg every 6 (six) hours as needed for Wheezing or Shortness of Breath. [facility] buPROPion XL (WELLBUTRIN XL) 150 mg 24 hr tablet 03-01 00:00: 00 Yes [id number] 150mg Take 1 tablet by mouth daily. [facility] sodium chloride 0.9 % nebulizer solution 03-01 00:00: 00 Yes [id number] 3mL Use 3 mL as directed every 6 (six) hours as needed for Wheezing (cough/con gestion). [facility] fluticasone furoate-telma anterol (BREO ELLIPTA) 200-25 mcg/dose DsDv 03-01 00:00: 00 Yes [id number] 200ug Inhale 200 mcg daily. [facility] ipratropium 0.02 % nebulizer solution 03-01 00:00: 00 Yes [id number] .5mg Inhale 2.5 mL every 6 (six) hours as needed for Wheezing or Shortness of Breath. [facility] levalbutero l 0.63 mg/3 mL nebulizer solution 03-01 00:00: 00 Yes [id number] .63mg Inhale 0.63 mg every 6 (six) hours as needed for Wheezing or Shortness of Breath. [facility] buPROPion XL (WELLBUTRIN XL) 150 mg 24 hr tablet 03-01 00:00: 00 Yes [id number] 150mg Take 1 tablet by mouth daily. [facility] sodium chloride 0.9 % nebulizer solution 03-01 00:00: 00 Yes [id number] 3mL Use 3 mL as directed every 6 (six) hours as needed for Wheezing (cough/con gestion). [facility] fluticasone furoate-telma anterol (BREO ELLIPTA) 200-25 mcg/dose DsDv 03-01 00:00: 00 Yes [id number] 200ug Inhale 200 mcg daily. [facility] ipratropium 0.02 % nebulizer solution 03-01 00:00: 00 Yes [id number] .5mg Inhale 2.5 mL every 6 (six) hours as needed for Wheezing or Shortness of Breath. [facility] levalbutero l 0.63 mg/3 mL nebulizer solution 03-01 00:00: 00 Yes [id number] .63mg Inhale 0.63 mg every 6 (six) hours as needed for Wheezing or Shortness of Breath. [facility] buPROPion XL (WELLBUTRIN XL) 150 mg 24 hr tablet 03-01 00:00: 00 Yes [id number] 150mg Take 1 tablet by mouth daily. [facility] sodium chloride 0.9 % nebulizer solution 03-01 00:00: 00 Yes [id number] 3mL Use 3 mL as directed every 6 (six) hours as needed for Wheezing (cough/con gestion). [facility] fluticasone furoate-telma anterol (BREO ELLIPTA) 200-25 mcg/dose DsDv 03-01 00:00: 00 Yes [id number] 200ug Inhale 200 mcg daily. [facility] ipratropium 0.02 % nebulizer solution 03-01 00:00: 00 Yes [id number] .5mg Inhale 2.5 mL every 6 (six) hours as needed for Wheezing or Shortness of Breath. [facility] levalbutero l 0.63 mg/3 mL nebulizer solution 03-01 00:00: 00 Yes [id number] .63mg Inhale 0.63 mg every 6 (six) hours as needed for Wheezing or Shortness of Breath. [facility] buPROPion XL (WELLBUTRIN XL) 150 mg 24 hr tablet 03-01 00:00: 00 Yes [id number] 150mg Take 1 tablet by mouth daily. [facility] sodium chloride 0.9 % nebulizer solution 03-01 00:00: 00 Yes [id number] 3mL Use 3 mL as directed every 6 (six) hours as needed for Wheezing (cough/con gestion). [facility] fluticasone furoate-telma anterol (BREO ELLIPTA) 200-25 mcg/dose DsDv 03-01 00:00: 00 Yes [id number] 200ug Inhale 200 mcg daily. [facility] ipratropium 0.02 % nebulizer solution 03-01 00:00: 00 Yes [id number] .5mg Inhale 2.5 mL every 6 (six) hours as needed for Wheezing or Shortness of Breath. [facility] levalbutero l 0.63 mg/3 mL nebulizer solution 03-01 00:00: 00 Yes [id number] .63mg Inhale 0.63 mg every 6 (six) hours as needed for Wheezing or Shortness of Breath. [facility] buPROPion XL (WELLBUTRIN XL) 150 mg 24 hr tablet 03-01 00:00: 00 Yes [id number] 150mg Take 1 tablet by mouth daily. [facility] sodium chloride 0.9 % nebulizer solution 03-01 00:00: 00 Yes [id number] 3mL Use 3 mL as directed every 6 (six) hours as needed for Wheezing (cough/con gestion). [facility] fluticasone furoate-telma anterol (BREO ELLIPTA) 200-25 mcg/dose DsDv 03-01 00:00: 00 Yes [id number] 200ug Inhale 200 mcg daily. [facility] ipratropium 0.02 % nebulizer solution 03-01 00:00: 00 Yes [id number] .5mg Inhale 2.5 mL every 6 (six) hours as needed for Wheezing or Shortness of Breath. [facility] levalbutero l 0.63 mg/3 mL nebulizer solution 03-01 00:00: 00 Yes [id number] .63mg Inhale 0.63 mg every 6 (six) hours as needed for Wheezing or Shortness of Breath. [facility] buPROPion XL (WELLBUTRIN XL) 150 mg 24 hr tablet 03-01 00:00: 00 Yes [id number] 150mg Take 1 tablet by mouth daily. [facility] sodium chloride 0.9 % nebulizer solution 03-01 00:00: 00 Yes [id number] 3mL Use 3 mL as directed every 6 (six) hours as needed for Wheezing (cough/con gestion). [facility] ipratropium 0.02 % nebulizer solution 03-01 00:00: 00 Yes [id number] .5mg Inhale 2.5 mL every 6 (six) hours as needed for Wheezing or Shortness of Breath. [facility] levalbutero l 0.63 mg/3 mL nebulizer solution 03-01 00:00: 00 Yes [id number] .63mg Inhale 0.63 mg every 6 (six) hours as needed for Wheezing or Shortness of Breath. [facility] buPROPion XL (WELLBUTRIN XL) 150 mg 24 hr tablet 03-01 00:00: 00 Yes [id number] 150mg Take 1 tablet by mouth daily. [facility] sodium chloride 0.9 % nebulizer solution 03-01 00:00: 00 Yes [id number] 3mL Use 3 mL as directed every 6 (six) hours as needed for Wheezing (cough/con gestion). [facility] ipratropium 0.02 % nebulizer solution 03-01 00:00: 00 Yes [id number] .5mg Inhale 2.5 mL every 6 (six) hours as needed for Wheezing or Shortness of Breath. [facility] levalbutero l 0.63 mg/3 mL nebulizer solution 03-01 00:00: 00 Yes [id number] .63mg Inhale 0.63 mg every 6 (six) hours as needed for Wheezing or Shortness of Breath. [facility] buPROPion XL (WELLBUTRIN XL) 150 mg 24 hr tablet 03-01 00:00: 00 Yes [id number] 150mg Take 1 tablet by mouth daily. [facility] sodium chloride 0.9 % nebulizer solution 03-01 00:00: 00 Yes [id number] 3mL Use 3 mL as directed every 6 (six) hours as needed for Wheezing (cough/con gestion). [facility] ipratropium 0.02 % nebulizer solution 03-01 00:00: 00 Yes [id number] .5mg Inhale 2.5 mL every 6 (six) hours as needed for Wheezing or Shortness of Breath. [facility] levalbutero l 0.63 mg/3 mL nebulizer solution 03-01 00:00: 00 Yes [id number] .63mg Inhale 0.63 mg every 6 (six) hours as needed for Wheezing or Shortness of Breath. [facility] buPROPion XL (WELLBUTRIN XL) 150 mg 24 hr tablet 03-01 00:00: 00 Yes [id number] 150mg Take 1 tablet by mouth daily. [facility] sodium chloride 0.9 % nebulizer solution 03-01 00:00: 00 Yes [id number] 3mL Use 3 mL as directed every 6 (six) hours as needed for Wheezing (cough/con gestion). [facility] ipratropium 0.02 % nebulizer solution 03-01 00:00: 00 Yes [id number] .5mg Inhale 2.5 mL every 6 (six) hours as needed for Wheezing or Shortness of Breath. [facility] levalbutero l 0.63 mg/3 mL nebulizer solution 03-01 00:00: 00 Yes [id number] .63mg Inhale 0.63 mg every 6 (six) hours as needed for Wheezing or Shortness of Breath. [facility] buPROPion XL (WELLBUTRIN XL) 150 mg 24 hr tablet 03-01 00:00: 00 Yes [id number] 150mg Take 1 tablet by mouth daily. [facility] sodium chloride 0.9 % nebulizer solution 03-01 00:00: 00 Yes [id number] 3mL Use 3 mL as directed every 6 (six) hours as needed for Wheezing (cough/con gestion). [facility] ipratropium 0.02 % nebulizer solution 03-01 00:00: 00 Yes [id number] .5mg Inhale 2.5 mL every 6 (six) hours as needed for Wheezing or Shortness of Breath. [facility] levalbutero l 0.63 mg/3 mL nebulizer solution 03-01 00:00: 00 Yes [id number] .63mg Inhale 0.63 mg every 6 (six) hours as needed for Wheezing or Shortness of Breath. [facility] buPROPion XL (WELLBUTRIN XL) 150 mg 24 hr tablet 03-01 00:00: 00 Yes [id number] 150mg Take 1 tablet by mouth daily. [facility] sodium chloride 0.9 % nebulizer solution 03-01 00:00: 00 Yes [id number] 3mL Use 3 mL as directed every 6 (six) hours as needed for Wheezing (cough/con gestion). [facility] ipratropium 0.02 % nebulizer solution 03-01 00:00: 00 Yes [id number] .5mg Inhale 2.5 mL every 6 (six) hours as needed for Wheezing or Shortness of Breath. [facility] levalbutero l 0.63 mg/3 mL nebulizer solution 03-01 00:00: 00 Yes [id number] .63mg Inhale 0.63 mg every 6 (six) hours as needed for Wheezing or Shortness of Breath. [facility] buPROPion XL (WELLBUTRIN XL) 150 mg 24 hr tablet 03-01 00:00: 00 Yes [id number] 150mg Take 1 tablet by mouth daily. [facility] sodium chloride 0.9 % nebulizer solution 03-01 00:00: 00 Yes [id number] 3mL Use 3 mL as directed every 6 (six) hours as needed for Wheezing (cough/con gestion). [facility] ipratropium 0.02 % nebulizer solution 03-01 00:00: 00 Yes [id number] .5mg Inhale 2.5 mL every 6 (six) hours as needed for Wheezing or Shortness of Breath. [facility] levalbutero l 0.63 mg/3 mL nebulizer solution 03-01 00:00: 00 Yes [id number] .63mg Inhale 0.63 mg every 6 (six) hours as needed for Wheezing or Shortness of Breath. [facility] buPROPion XL (WELLBUTRIN XL) 150 mg 24 hr tablet 03-01 00:00: 00 Yes [id number] 150mg Take 1 tablet by mouth daily. [facility] sodium chloride 0.9 % nebulizer solution 03-01 00:00: 00 Yes [id number] 3mL Use 3 mL as directed every 6 (six) hours as needed for Wheezing (cough/con gestion). [facility] ipratropium 0.02 % nebulizer solution 03-01 00:00: 00 Yes [id number] .5mg Inhale 2.5 mL every 6 (six) hours as needed for Wheezing or Shortness of Breath. [facility] levalbutero l 0.63 mg/3 mL nebulizer solution 03-01 00:00: 00 Yes [id number] .63mg Inhale 0.63 mg every 6 (six) hours as needed for Wheezing or Shortness of Breath. [facility] buPROPion XL (WELLBUTRIN XL) 150 mg 24 hr tablet 03-01 00:00: 00 Yes [id number] 150mg Take 1 tablet by mouth daily. [facility] sodium chloride 0.9 % nebulizer solution 03-01 00:00: 00 Yes [id number] 3mL Use 3 mL as directed every 6 (six) hours as needed for Wheezing (cough/con gestion). [facility] ipratropium 0.02 % nebulizer solution 03-01 00:00: 00 Yes [id number] .5mg Inhale 2.5 mL every 6 (six) hours as needed for Wheezing or Shortness of Breath. [facility] levalbutero l 0.63 mg/3 mL nebulizer solution 03-01 00:00: 00 Yes [id number] .63mg Inhale 0.63 mg every 6 (six) hours as needed for Wheezing or Shortness of Breath. [facility] buPROPion XL (WELLBUTRIN XL) 150 mg 24 hr tablet 03-01 00:00: 00 Yes [id number] 150mg Take 1 tablet by mouth daily. [facility] sodium chloride 0.9 % nebulizer solution 03-01 00:00: 00 Yes [id number] 3mL Use 3 mL as directed every 6 (six) hours as needed for Wheezing (cough/con gestion). [facility] ipratropium 0.02 % nebulizer solution 03-01 00:00: 00 Yes [id number] .5mg Inhale 2.5 mL every 6 (six) hours as needed for Wheezing or Shortness of Breath. [facility] levalbutero l 0.63 mg/3 mL nebulizer solution 03-01 00:00: 00 Yes [id number] .63mg Inhale 0.63 mg every 6 (six) hours as needed for Wheezing or Shortness of Breath. [facility] buPROPion XL (WELLBUTRIN XL) 150 mg 24 hr tablet 03-01 00:00: 00 Yes [id number] 150mg Take 1 tablet by mouth daily. [facility] sodium chloride 0.9 % nebulizer solution 03-01 00:00: 00 Yes [id number] 3mL Use 3 mL as directed every 6 (six) hours as needed for Wheezing (cough/con gestion). [facility] ipratropium 0.02 % nebulizer solution 03-01 00:00: 00 Yes [id number] .5mg Inhale 2.5 mL every 6 (six) hours as needed for Wheezing or Shortness of Breath. [facility] levalbutero l 0.63 mg/3 mL nebulizer solution 03-01 00:00: 00 Yes [id number] .63mg Inhale 0.63 mg every 6 (six) hours as needed for Wheezing or Shortness of Breath. [facility] buPROPion XL (WELLBUTRIN XL) 150 mg 24 hr tablet 03-01 00:00: 00 Yes [id number] 150mg Take 1 tablet by mouth daily. [facility] sodium chloride 0.9 % nebulizer solution 03-01 00:00: 00 Yes [id number] 3mL Use 3 mL as directed every 6 (six) hours as needed for Wheezing (cough/con gestion). [facility] ipratropium 0.02 % nebulizer solution 03-01 00:00: 00 Yes [id number] .5mg Inhale 2.5 mL every 6 (six) hours as needed for Wheezing or Shortness of Breath. [facility] levalbutero l 0.63 mg/3 mL nebulizer solution 03-01 00:00: 00 Yes [id number] .63mg Inhale 0.63 mg every 6 (six) hours as needed for Wheezing or Shortness of Breath. [facility] buPROPion XL (WELLBUTRIN XL) 150 mg 24 hr tablet 03-01 00:00: 00 Yes [id number] 150mg Take 1 tablet by mouth daily. [facility] sodium chloride 0.9 % nebulizer solution 03-01 00:00: 00 Yes [id number] 3mL Use 3 mL as directed every 6 (six) hours as needed for Wheezing (cough/con gestion). [facility] ipratropium 0.02 % nebulizer solution 03-01 00:00: 00 Yes [id number] .5mg Inhale 2.5 mL every 6 (six) hours as needed for Wheezing or Shortness of Breath. [facility] levalbutero l 0.63 mg/3 mL nebulizer solution 03-01 00:00: 00 Yes [id number] .63mg Inhale 0.63 mg every 6 (six) hours as needed for Wheezing or Shortness of Breath. [facility] buPROPion XL (WELLBUTRIN XL) 150 mg 24 hr tablet 03-01 00:00: 00 Yes [id number] 150mg Take 1 tablet by mouth daily. [facility] sodium chloride 0.9 % nebulizer solution 03-01 00:00: 00 Yes [id number] 3mL Use 3 mL as directed every 6 (six) hours as needed for Wheezing (cough/con gestion). [facility] ipratropium 0.02 % nebulizer solution 03-01 00:00: 00 Yes [id number] .5mg Inhale 2.5 mL every 6 (six) hours as needed for Wheezing or Shortness of Breath. [facility] levalbutero l 0.63 mg/3 mL nebulizer solution 03-01 00:00: 00 Yes [id number] .63mg Inhale 0.63 mg every 6 (six) hours as needed for Wheezing or Shortness of Breath. [facility] buPROPion XL (WELLBUTRIN XL) 150 mg 24 hr tablet 03-01 00:00: 00 Yes [id number] 150mg Take 1 tablet by mouth daily. [facility] sodium chloride 0.9 % nebulizer solution 03-01 00:00: 00 Yes [id number] 3mL Use 3 mL as directed every 6 (six) hours as needed for Wheezing (cough/con gestion). [facility] ipratropium 0.02 % nebulizer solution 03-01 00:00: 00 Yes [id number] .5mg Inhale 2.5 mL every 6 (six) hours as needed for Wheezing or Shortness of Breath. [facility] levalbutero l 0.63 mg/3 mL nebulizer solution 03-01 00:00: 00 Yes [id number] .63mg Inhale 0.63 mg every 6 (six) hours as needed for Wheezing or Shortness of Breath. [facility] buPROPion XL (WELLBUTRIN XL) 150 mg 24 hr tablet 03-01 00:00: 00 Yes [id number] 150mg Take 1 tablet by mouth daily. [facility] sodium chloride 0.9 % nebulizer solution 03-01 00:00: 00 Yes [id number] 3mL Use 3 mL as directed every 6 (six) hours as needed for Wheezing (cough/con gestion). [facility] ipratropium 0.02 % nebulizer solution 03-01 00:00: 00 Yes [id number] .5mg Inhale 2.5 mL every 6 (six) hours as needed for Wheezing or Shortness of Breath. [facility] levalbutero l 0.63 mg/3 mL nebulizer solution 03-01 00:00: 00 Yes [id number] .63mg Inhale 0.63 mg every 6 (six) hours as needed for Wheezing or Shortness of Breath. [facility] buPROPion XL (WELLBUTRIN XL) 150 mg 24 hr tablet 03-01 00:00: 00 Yes [id number] 150mg Take 1 tablet by mouth daily. [facility] sodium chloride 0.9 % nebulizer solution 03-01 00:00: 00 Yes [id number] 3mL Use 3 mL as directed every 6 (six) hours as needed for Wheezing (cough/con gestion). [facility] ipratropium 0.02 % nebulizer solution 03-01 00:00: 00 Yes [id number] .5mg Inhale 2.5 mL every 6 (six) hours as needed for Wheezing or Shortness of Breath. [facility] levalbutero l 0.63 mg/3 mL nebulizer solution 03-01 00:00: 00 Yes [id number] .63mg Inhale 0.63 mg every 6 (six) hours as needed for Wheezing or Shortness of Breath. [facility] buPROPion XL (WELLBUTRIN XL) 150 mg 24 hr tablet 03-01 00:00: 00 Yes [id number] 150mg Take 1 tablet by mouth daily. [facility] sodium chloride 0.9 % nebulizer solution 03-01 00:00: 00 Yes [id number] 3mL Use 3 mL as directed every 6 (six) hours as needed for Wheezing (cough/con gestion). [facility] ipratropium 0.02 % nebulizer solution 03-01 00:00: 00 Yes [id number] .5mg Inhale 2.5 mL every 6 (six) hours as needed for Wheezing or Shortness of Breath. [facility] levalbutero l 0.63 mg/3 mL nebulizer solution 03-01 00:00: 00 Yes [id number] .63mg Inhale 0.63 mg every 6 (six) hours as needed for Wheezing or Shortness of Breath. [facility] buPROPion XL (WELLBUTRIN XL) 150 mg 24 hr tablet 03-01 00:00: 00 Yes [id number] 150mg Take 1 tablet by mouth daily. [facility] sodium chloride 0.9 % nebulizer solution 03-01 00:00: 00 Yes [id number] 3mL Use 3 mL as directed every 6 (six) hours as needed for Wheezing (cough/con gestion). [facility] ipratropium 0.02 % nebulizer solution 03-01 00:00: 00 Yes [id number] .5mg Inhale 2.5 mL every 6 (six) hours as needed for Wheezing or Shortness of Breath. [facility] levalbutero l 0.63 mg/3 mL nebulizer solution 03-01 00:00: 00 Yes [id number] .63mg Inhale 0.63 mg every 6 (six) hours as needed for Wheezing or Shortness of Breath. [facility] buPROPion XL (WELLBUTRIN XL) 150 mg 24 hr tablet 03-01 00:00: 00 Yes [id number] 150mg Take 1 tablet by mouth daily. [facility] sodium chloride 0.9 % nebulizer solution 03-01 00:00: 00 Yes [id number] 3mL Use 3 mL as directed every 6 (six) hours as needed for Wheezing (cough/con gestion). [facility] ipratropium 0.02 % nebulizer solution 03-01 00:00: 00 Yes [id number] .5mg Inhale 2.5 mL every 6 (six) hours as needed for Wheezing or Shortness of Breath. [facility] levalbutero l 0.63 mg/3 mL nebulizer solution 03-01 00:00: 00 Yes [id number] .63mg Inhale 0.63 mg every 6 (six) hours as needed for Wheezing or Shortness of Breath. [facility] buPROPion XL (WELLBUTRIN XL) 150 mg 24 hr tablet 03-01 00:00: 00 Yes [id number] 150mg Take 1 tablet by mouth daily. [facility] sodium chloride 0.9 % nebulizer solution 03-01 00:00: 00 Yes [id number] 3mL Use 3 mL as directed every 6 (six) hours as needed for Wheezing (cough/con gestion). [facility] ipratropium 0.02 % nebulizer solution 03-01 00:00: 00 Yes [id number] .5mg Inhale 2.5 mL every 6 (six) hours as needed for Wheezing or Shortness of Breath. [facility] levalbutero l 0.63 mg/3 mL nebulizer solution 03-01 00:00: 00 Yes [id number] .63mg Inhale 0.63 mg every 6 (six) hours as needed for Wheezing or Shortness of Breath. [facility] buPROPion XL (WELLBUTRIN XL) 150 mg 24 hr tablet 03-01 00:00: 00 Yes [id number] 150mg Take 1 tablet by mouth daily. [facility] sodium chloride 0.9 % nebulizer solution 03-01 00:00: 00 Yes [id number] 3mL Use 3 mL as directed every 6 (six) hours as needed for Wheezing (cough/con gestion). [facility] ipratropium 0.02 % nebulizer solution 03-01 00:00: 00 Yes [id number] .5mg Inhale 2.5 mL every 6 (six) hours as needed for Wheezing or Shortness of Breath. [facility] levalbutero l 0.63 mg/3 mL nebulizer solution 03-01 00:00: 00 Yes [id number] .63mg Inhale 0.63 mg every 6 (six) hours as needed for Wheezing or Shortness of Breath. [facility] buPROPion XL (WELLBUTRIN XL) 150 mg 24 hr tablet 03-01 00:00: 00 Yes [id number] 150mg Take 1 tablet by mouth daily. [facility] sodium chloride 0.9 % nebulizer solution 03-01 00:00: 00 Yes [id number] 3mL Use 3 mL as directed every 6 (six) hours as needed for Wheezing (cough/con gestion). [facility] ipratropium 0.02 % nebulizer solution 03-01 00:00: 00 Yes [id number] .5mg Inhale 2.5 mL every 6 (six) hours as needed for Wheezing or Shortness of Breath. [facility] levalbutero l 0.63 mg/3 mL nebulizer solution 03-01 00:00: 00 Yes [id number] .63mg Inhale 0.63 mg every 6 (six) hours as needed for Wheezing or Shortness of Breath. [facility] buPROPion XL (WELLBUTRIN XL) 150 mg 24 hr tablet 03-01 00:00: 00 Yes [id number] 150mg Take 1 tablet by mouth daily. [facility] sodium chloride 0.9 % nebulizer solution 03-01 00:00: 00 Yes [id number] 3mL Use 3 mL as directed every 6 (six) hours as needed for Wheezing (cough/con gestion). [facility] ipratropium 0.02 % nebulizer solution 03-01 00:00: 00 Yes [id number] .5mg Inhale 2.5 mL every 6 (six) hours as needed for Wheezing or Shortness of Breath. [facility] levalbutero l 0.63 mg/3 mL nebulizer solution 03-01 00:00: 00 Yes [id number] .63mg Inhale 0.63 mg every 6 (six) hours as needed for Wheezing or Shortness of Breath. [facility] buPROPion XL (WELLBUTRIN XL) 150 mg 24 hr tablet 03-01 00:00: 00 Yes [id number] 150mg Take 1 tablet by mouth daily. [facility] sodium chloride 0.9 % nebulizer solution 03-01 00:00: 00 Yes [id number] 3mL Use 3 mL as directed every 6 (six) hours as needed for Wheezing (cough/con gestion). [facility] ipratropium 0.02 % nebulizer solution 03-01 00:00: 00 Yes [id number] .5mg Inhale 2.5 mL every 6 (six) hours as needed for Wheezing or Shortness of Breath. [facility] levalbutero l 0.63 mg/3 mL nebulizer solution 03-01 00:00: 00 Yes [id number] .63mg Inhale 0.63 mg every 6 (six) hours as needed for Wheezing or Shortness of Breath. [facility] buPROPion XL (WELLBUTRIN XL) 150 mg 24 hr tablet 03-01 00:00: 00 Yes [id number] 150mg Take 1 tablet by mouth daily. [facility] sodium chloride 0.9 % nebulizer solution 03-01 00:00: 00 Yes [id number] 3mL Use 3 mL as directed every 6 (six) hours as needed for Wheezing (cough/con gestion). [facility] ipratropium 0.02 % nebulizer solution 03-01 00:00: 00 Yes [id number] .5mg Inhale 2.5 mL every 6 (six) hours as needed for Wheezing or Shortness of Breath. [facility] levalbutero l 0.63 mg/3 mL nebulizer solution 03-01 00:00: 00 Yes [id number] .63mg Inhale 0.63 mg every 6 (six) hours as needed for Wheezing or Shortness of Breath. [facility] buPROPion XL (WELLBUTRIN XL) 150 mg 24 hr tablet 03-01 00:00: 00 Yes [id number] 150mg Take 1 tablet by mouth daily. [facility] sodium chloride 0.9 % nebulizer solution 03-01 00:00: 00 Yes [id number] 3mL Use 3 mL as directed every 6 (six) hours as needed for Wheezing (cough/con gestion). [facility] ipratropium 0.02 % nebulizer solution 03-01 00:00: 00 Yes [id number] .5mg Inhale 2.5 mL every 6 (six) hours as needed for Wheezing or Shortness of Breath. [facility] levalbutero l 0.63 mg/3 mL nebulizer solution 03-01 00:00: 00 Yes [id number] .63mg Inhale 0.63 mg every 6 (six) hours as needed for Wheezing or Shortness of Breath. [facility] buPROPion XL (WELLBUTRIN XL) 150 mg 24 hr tablet 03-01 00:00: 00 Yes [id number] 150mg Take 1 tablet by mouth daily. [facility] sodium chloride 0.9 % nebulizer solution 03-01 00:00: 00 Yes [id number] 3mL Use 3 mL as directed every 6 (six) hours as needed for Wheezing (cough/con gestion). [facility] ipratropium 0.02 % nebulizer solution 03-01:00: 00 Yes [id number] .5mg Inhale 2.5 mL every 6 (six) hours as needed for Wheezing or Shortness of Breath. [facility] levalbutero l 0.63 mg/3 mL nebulizer solution 03-01 00:00: 00 Yes [id number] .63mg Inhale 0.63 mg every 6 (six) hours as needed for Wheezing or Shortness of Breath. [facility] buPROPion XL (WELLBUTRIN XL) 150 mg 24 hr tablet 03-01 00:00: 00 Yes [id number] 150mg Take 1 tablet by mouth daily. [facility] sodium chloride 0.9 % nebulizer solution 03-01 00:00: 00 Yes [id number] 3mL Use 3 mL as directed every 6 (six) hours as needed for Wheezing (cough/con gestion). [facility] ipratropium 0.02 % nebulizer solution 03-01 00:00: 00 Yes [id number] .5mg Inhale 2.5 mL every 6 (six) hours as needed for Wheezing or Shortness of Breath. [facility] levalbutero l 0.63 mg/3 mL nebulizer solution 03-01 00:00: 00 Yes [id number] .63mg Inhale 0.63 mg every 6 (six) hours as needed for Wheezing or Shortness of Breath. [facility] buPROPion XL (WELLBUTRIN XL) 150 mg 24 hr tablet 03-01 00:00: 00 Yes [id number] 150mg Take 1 tablet by mouth daily. [facility] sodium chloride 0.9 % nebulizer solution 03-01 00:00: 00 Yes [id number] 3mL Use 3 mL as directed every 6 (six) hours as needed for Wheezing (cough/con gestion). [facility] ipratropium 0.02 % nebulizer solution 03-01 00:00: 00 Yes [id number] .5mg Inhale 2.5 mL every 6 (six) hours as needed for Wheezing or Shortness of Breath. [facility] levalbutero l 0.63 mg/3 mL nebulizer solution 03-01 00:00: 00 Yes [id number] .63mg Inhale 0.63 mg every 6 (six) hours as needed for Wheezing or Shortness of Breath. [facility] buPROPion XL (WELLBUTRIN XL) 150 mg 24 hr tablet 03-01 00:00: 00 Yes [id number] 150mg Take 1 tablet by mouth daily. [facility] sodium chloride 0.9 % nebulizer solution 03-01 00:00: 00 Yes [id number] 3mL Use 3 mL as directed every 6 (six) hours as needed for Wheezing (cough/con gestion). [facility] ipratropium 0.02 % nebulizer solution 03-01 00:00: 00 Yes [id number] .5mg Inhale 2.5 mL every 6 (six) hours as needed for Wheezing or Shortness of Breath. [facility] levalbutero l 0.63 mg/3 mL nebulizer solution 03-01 00:00: 00 Yes [id number] .63mg Inhale 0.63 mg every 6 (six) hours as needed for Wheezing or Shortness of Breath. [facility] buPROPion XL (WELLBUTRIN XL) 150 mg 24 hr tablet 03-01 00:00: 00 Yes [id number] 150mg Take 1 tablet by mouth daily. [facility] sodium chloride 0.9 % nebulizer solution 03-01 00:00: 00 Yes [id number] 3mL Use 3 mL as directed every 6 (six) hours as needed for Wheezing (cough/con gestion). [facility] ipratropium 0.02 % nebulizer solution 03-01 00:00: 00 Yes [id number] .5mg Inhale 2.5 mL every 6 (six) hours as needed for Wheezing or Shortness of Breath. [facility] levalbutero l 0.63 mg/3 mL nebulizer solution 03-01 00:00: 00 Yes [id number] .63mg Inhale 0.63 mg every 6 (six) hours as needed for Wheezing or Shortness of Breath. [facility] buPROPion XL (WELLBUTRIN XL) 150 mg 24 hr tablet 03-01 00:00: 00 Yes [id number] 150mg Take 1 tablet by mouth daily. [facility] sodium chloride 0.9 % nebulizer solution 03-01 00:00: 00 Yes [id number] 3mL Use 3 mL as directed every 6 (six) hours as needed for Wheezing (cough/con gestion). [facility] ipratropium 0.02 % nebulizer solution 03-01 00:00: 00 Yes [id number] .5mg Inhale 2.5 mL every 6 (six) hours as needed for Wheezing or Shortness of Breath. [facility] levalbutero l 0.63 mg/3 mL nebulizer solution 03-01 00:00: 00 Yes [id number] .63mg Inhale 0.63 mg every 6 (six) hours as needed for Wheezing or Shortness of Breath. [facility] buPROPion XL (WELLBUTRIN XL) 150 mg 24 hr tablet 03-01 00:00: 00 Yes [id number] 150mg Take 1 tablet by mouth daily. [facility] sodium chloride 0.9 % nebulizer solution 03-01 00:00: 00 Yes [id number] 3mL Use 3 mL as directed every 6 (six) hours as needed for Wheezing (cough/con gestion). [facility] ipratropium 0.02 % nebulizer solution 03-01 00:00: 00 Yes [id number] .5mg Inhale 2.5 mL every 6 (six) hours as needed for Wheezing or Shortness of Breath. [facility] levalbutero l 0.63 mg/3 mL nebulizer solution 03-01 00:00: 00 Yes [id number] .63mg Inhale 0.63 mg every 6 (six) hours as needed for Wheezing or Shortness of Breath. [facility] buPROPion XL (WELLBUTRIN XL) 150 mg 24 hr tablet 03-01 00:00: 00 Yes [id number] 150mg Take 1 tablet by mouth daily. [facility] sodium chloride 0.9 % nebulizer solution 03-01 00:00: 00 Yes [id number] 3mL Use 3 mL as directed every 6 (six) hours as needed for Wheezing (cough/con gestion). [facility] ipratropium 0.02 % nebulizer solution 03-01 00:00: 00 Yes [id number] .5mg Inhale 2.5 mL every 6 (six) hours as needed for Wheezing or Shortness of Breath. [facility] levalbutero l 0.63 mg/3 mL nebulizer solution 03-01 00:00: 00 Yes [id number] .63mg Inhale 0.63 mg every 6 (six) hours as needed for Wheezing or Shortness of Breath. [facility] buPROPion XL (WELLBUTRIN XL) 150 mg 24 hr tablet 03-01 00:00: 00 Yes [id number] 150mg Take 1 tablet by mouth daily. [facility] sodium chloride 0.9 % nebulizer solution 03-01 00:00: 00 Yes [id number] 3mL Use 3 mL as directed every 6 (six) hours as needed for Wheezing (cough/con gestion). [facility] ipratropium 0.02 % nebulizer solution 03-01 00:00: 00 Yes [id number] .5mg Inhale 2.5 mL every 6 (six) hours as needed for Wheezing or Shortness of Breath. [facility] levalbutero l 0.63 mg/3 mL nebulizer solution 03-01 00:00: 00 Yes [id number] .63mg Inhale 0.63 mg every 6 (six) hours as needed for Wheezing or Shortness of Breath. [facility] buPROPion XL (WELLBUTRIN XL) 150 mg 24 hr tablet 03-01 00:00: 00 Yes [id number] 150mg Take 1 tablet by mouth daily. [facility] sodium chloride 0.9 % nebulizer solution 03-01 00:00: 00 Yes [id number] 3mL Use 3 mL as directed every 6 (six) hours as needed for Wheezing (cough/con gestion). [facility] ipratropium 0.02 % nebulizer solution 03-01 00:00: 00 Yes [id number] .5mg Inhale 2.5 mL every 6 (six) hours as needed for Wheezing or Shortness of Breath. [facility] levalbutero l 0.63 mg/3 mL nebulizer solution 03-01 00:00: 00 Yes [id number] .63mg Inhale 0.63 mg every 6 (six) hours as needed for Wheezing or Shortness of Breath. [facility] buPROPion XL (WELLBUTRIN XL) 150 mg 24 hr tablet 03-01 00:00: 00 Yes [id number] 150mg Take 1 tablet by mouth daily. [facility] sodium chloride 0.9 % nebulizer solution 03-01 00:00: 00 Yes [id number] 3mL Use 3 mL as directed every 6 (six) hours as needed for Wheezing (cough/con gestion). [facility] ipratropium 0.02 % nebulizer solution 03-01 00:00: 00 Yes [id number] .5mg Inhale 2.5 mL every 6 (six) hours as needed for Wheezing or Shortness of Breath. [facility] levalbutero l 0.63 mg/3 mL nebulizer solution 03-01 00:00: 00 Yes [id number] .63mg Inhale 0.63 mg every 6 (six) hours as needed for Wheezing or Shortness of Breath. [facility] buPROPion XL (WELLBUTRIN XL) 150 mg 24 hr tablet 03-01 00:00: 00 Yes [id number] 150mg Take 1 tablet by mouth daily. [facility] sodium chloride 0.9 % nebulizer solution 03-01 00:00: 00 Yes [id number] 3mL Use 3 mL as directed every 6 (six) hours as needed for Wheezing (cough/con gestion). [facility] ipratropium 0.02 % nebulizer solution 03-01 00:00: 00 Yes [id number] .5mg Inhale 2.5 mL every 6 (six) hours as needed for Wheezing or Shortness of Breath. [facility] levalbutero l 0.63 mg/3 mL nebulizer solution 03-01 00:00: 00 Yes [id number] .63mg Inhale 0.63 mg every 6 (six) hours as needed for Wheezing or Shortness of Breath. [facility] buPROPion XL (WELLBUTRIN XL) 150 mg 24 hr tablet 03-01 00:00: 00 Yes [id number] 150mg Take 1 tablet by mouth daily. [facility] sodium chloride 0.9 % nebulizer solution 03-01 00:00: 00 Yes [id number] 3mL Use 3 mL as directed every 6 (six) hours as needed for Wheezing (cough/con gestion). [facility] ipratropium 0.02 % nebulizer solution 03-01 00:00: 00 Yes [id number] .5mg Inhale 2.5 mL every 6 (six) hours as needed for Wheezing or Shortness of Breath. [facility] levalbutero l 0.63 mg/3 mL nebulizer solution 03-01 00:00: 00 Yes [id number] .63mg Inhale 0.63 mg every 6 (six) hours as needed for Wheezing or Shortness of Breath. [facility] buPROPion XL (WELLBUTRIN XL) 150 mg 24 hr tablet 03-01 00:00: 00 Yes [id number] 150mg Take 1 tablet by mouth daily. [facility] sodium chloride 0.9 % nebulizer solution 03-01 00:00: 00 Yes [id number] 3mL Use 3 mL as directed every 6 (six) hours as needed for Wheezing (cough/con gestion). [facility] ipratropium 0.02 % nebulizer solution 03-01 00:00: 00 Yes [id number] .5mg Inhale 2.5 mL every 6 (six) hours as needed for Wheezing or Shortness of Breath. [facility] levalbutero l 0.63 mg/3 mL nebulizer solution 03-01 00:00: 00 Yes [id number] .63mg Inhale 0.63 mg every 6 (six) hours as needed for Wheezing or Shortness of Breath. [facility] buPROPion XL (WELLBUTRIN XL) 150 mg 24 hr tablet 03-01 00:00: 00 Yes [id number] 150mg Take 1 tablet by mouth daily. [facility] sodium chloride 0.9 % nebulizer solution 03-01 00:00: 00 Yes [id number] 3mL Use 3 mL as directed every 6 (six) hours as needed for Wheezing (cough/con gestion). [facility] ipratropium 0.02 % nebulizer solution 03-01 00:00: 00 Yes [id number] .5mg Inhale 2.5 mL every 6 (six) hours as needed for Wheezing or Shortness of Breath. [facility] levalbutero l 0.63 mg/3 mL nebulizer solution 03-01 00:00: 00 Yes [id number] .63mg Inhale 0.63 mg every 6 (six) hours as needed for Wheezing or Shortness of Breath. [facility] buPROPion XL (WELLBUTRIN XL) 150 mg 24 hr tablet 03-01 00:00: 00 Yes [id number] 150mg Take 1 tablet by mouth daily. [facility] sodium chloride 0.9 % nebulizer solution 03-01 00:00: 00 Yes [id number] 3mL Use 3 mL as directed every 6 (six) hours as needed for Wheezing (cough/con gestion). [facility] ipratropium 0.02 % nebulizer solution 03-01 00:00: 00 Yes [id number] .5mg Inhale 2.5 mL every 6 (six) hours as needed for Wheezing or Shortness of Breath. [facility] levalbutero l 0.63 mg/3 mL nebulizer solution 03-01 00:00: 00 Yes [id number] .63mg Inhale 0.63 mg every 6 (six) hours as needed for Wheezing or Shortness of Breath. [facility] buPROPion XL (WELLBUTRIN XL) 150 mg 24 hr tablet 03-01 00:00: 00 Yes [id number] 150mg Take 1 tablet by mouth daily. [facility] sodium chloride 0.9 % nebulizer solution 03-01 00:00: 00 Yes [id number] 3mL Use 3 mL as directed every 6 (six) hours as needed for Wheezing (cough/con gestion). [facility] ipratropium 0.02 % nebulizer solution 03-01 00:00: 00 Yes [id number] .5mg Inhale 2.5 mL every 6 (six) hours as needed for Wheezing or Shortness of Breath. [facility] levalbutero l 0.63 mg/3 mL nebulizer solution 03-01 00:00: 00 Yes [id number] .63mg Inhale 0.63 mg every 6 (six) hours as needed for Wheezing or Shortness of Breath. [facility] buPROPion XL (WELLBUTRIN XL) 150 mg 24 hr tablet 03-01 00:00: 00 Yes [id number] 150mg Take 1 tablet by mouth daily. [facility] sodium chloride 0.9 % nebulizer solution 03-01 00:00: 00 Yes [id number] 3mL Use 3 mL as directed every 6 (six) hours as needed for Wheezing (cough/con gestion). [facility] ipratropium 0.02 % nebulizer solution 03-01 00:00: 00 Yes [id number] .5mg Inhale 2.5 mL every 6 (six) hours as needed for Wheezing or Shortness of Breath. [facility] levalbutero l 0.63 mg/3 mL nebulizer solution 03-01 00:00: 00 Yes [id number] .63mg Inhale 0.63 mg every 6 (six) hours as needed for Wheezing or Shortness of Breath. [facility] buPROPion XL (WELLBUTRIN XL) 150 mg 24 hr tablet 03-01 00:00: 00 Yes [id number] 150mg Take 1 tablet by mouth daily. [facility] sodium chloride 0.9 % nebulizer solution 03-01 00:00: 00 Yes [id number] 3mL Use 3 mL as directed every 6 (six) hours as needed for Wheezing (cough/con gestion). [facility] ipratropium 0.02 % nebulizer solution 03-01 00:00: 00 Yes [id number] .5mg Inhale 2.5 mL every 6 (six) hours as needed for Wheezing or Shortness of Breath. [facility] levalbutero l 0.63 mg/3 mL nebulizer solution 03-01 00:00: 00 Yes [id number] .63mg Inhale 0.63 mg every 6 (six) hours as needed for Wheezing or Shortness of Breath. [facility] buPROPion XL (WELLBUTRIN XL) 150 mg 24 hr tablet 03-01 00:00: 00 Yes [id number] 150mg Take 1 tablet by mouth daily. [facility] sodium chloride 0.9 % nebulizer solution 03-01 00:00: 00 Yes [id number] 3mL Use 3 mL as directed every 6 (six) hours as needed for Wheezing (cough/con gestion). [facility] ipratropium 0.02 % nebulizer solution 03-01 00:00: 00 Yes [id number] .5mg Inhale 2.5 mL every 6 (six) hours as needed for Wheezing or Shortness of Breath. [facility] levalbutero l 0.63 mg/3 mL nebulizer solution 03-01 00:00: 00 Yes [id number] .63mg Inhale 0.63 mg every 6 (six) hours as needed for Wheezing or Shortness of Breath. [facility] buPROPion XL (WELLBUTRIN XL) 150 mg 24 hr tablet 03-01 00:00: 00 Yes [id number] 150mg Take 1 tablet by mouth daily. [facility] sodium chloride 0.9 % nebulizer solution 03-01 00:00: 00 Yes [id number] 3mL Use 3 mL as directed every 6 (six) hours as needed for Wheezing (cough/con gestion). [facility] ipratropium 0.02 % nebulizer solution 03-01 00:00: 00 Yes [id number] .5mg Inhale 2.5 mL every 6 (six) hours as needed for Wheezing or Shortness of Breath. [facility] levalbutero l 0.63 mg/3 mL nebulizer solution 03-01 00:00: 00 Yes [id number] .63mg Inhale 0.63 mg every 6 (six) hours as needed for Wheezing or Shortness of Breath. [facility] buPROPion XL (WELLBUTRIN XL) 150 mg 24 hr tablet 03-01 00:00: 00 Yes [id number] 150mg Take 1 tablet by mouth daily. [facility] sodium chloride 0.9 % nebulizer solution 03-01 00:00: 00 Yes [id number] 3mL Use 3 mL as directed every 6 (six) hours as needed for Wheezing (cough/con gestion). [facility] ipratropium 0.02 % nebulizer solution 03-01 00:00: 00 Yes [id number] .5mg Inhale 2.5 mL every 6 (six) hours as needed for Wheezing or Shortness of Breath. [facility] levalbutero l 0.63 mg/3 mL nebulizer solution 03-01 00:00: 00 Yes [id number] .63mg Inhale 0.63 mg every 6 (six) hours as needed for Wheezing or Shortness of Breath. [facility] buPROPion XL (WELLBUTRIN XL) 150 mg 24 hr tablet 03-01 00:00: 00 Yes [id number] 150mg Take 1 tablet by mouth daily. [facility] sodium chloride 0.9 % nebulizer solution 03-01 00:00: 00 Yes [id number] 3mL Use 3 mL as directed every 6 (six) hours as needed for Wheezing (cough/con gestion). [facility] ipratropium 0.02 % nebulizer solution 03-01 00:00: 00 Yes [id number] .5mg Inhale 2.5 mL every 6 (six) hours as needed for Wheezing or Shortness of Breath. [facility] levalbutero l 0.63 mg/3 mL nebulizer solution 03-01 00:00: 00 Yes [id number] .63mg Inhale 0.63 mg every 6 (six) hours as needed for Wheezing or Shortness of Breath. [facility] buPROPion XL (WELLBUTRIN XL) 150 mg 24 hr tablet 03-01 00:00: 00 Yes [id number] 150mg Take 1 tablet by mouth daily. [facility] sodium chloride 0.9 % nebulizer solution 03-01 00:00: 00 Yes [id number] 3mL Use 3 mL as directed every 6 (six) hours as needed for Wheezing (cough/con gestion). [facility] ipratropium 0.02 % nebulizer solution 03-01 00:00: 00 Yes [id number] .5mg Inhale 2.5 mL every 6 (six) hours as needed for Wheezing or Shortness of Breath. [facility] levalbutero l 0.63 mg/3 mL nebulizer solution 03-01 00:00: 00 Yes [id number] .63mg Inhale 0.63 mg every 6 (six) hours as needed for Wheezing or Shortness of Breath. [facility] buPROPion XL (WELLBUTRIN XL) 150 mg 24 hr tablet 03-01 00:00: 00 Yes [id number] 150mg Take 1 tablet by mouth daily. [facility] sodium chloride 0.9 % nebulizer solution 03-01 00:00: 00 Yes [id number] 3mL Use 3 mL as directed every 6 (six) hours as needed for Wheezing (cough/con gestion). [facility] ipratropium 0.02 % nebulizer solution 03-01 00:00: 00 Yes [id number] .5mg Inhale 2.5 mL every 6 (six) hours as needed for Wheezing or Shortness of Breath. [facility] levalbutero l 0.63 mg/3 mL nebulizer solution 03-01 00:00: 00 Yes [id number] .63mg Inhale 0.63 mg every 6 (six) hours as needed for Wheezing or Shortness of Breath. [facility] buPROPion XL (WELLBUTRIN XL) 150 mg 24 hr tablet 03-01 00:00: 00 Yes [id number] 150mg Take 1 tablet by mouth daily. [facility] sodium chloride 0.9 % nebulizer solution 03-01 00:00: 00 Yes [id number] 3mL Use 3 mL as directed every 6 (six) hours as needed for Wheezing (cough/con gestion). [facility] ipratropium 0.02 % nebulizer solution 03-01 00:00: 00 Yes [id number] .5mg Inhale 2.5 mL every 6 (six) hours as needed for Wheezing or Shortness of Breath. [facility] levalbutero l 0.63 mg/3 mL nebulizer solution 03-01 00:00: 00 Yes [id number] .63mg Inhale 0.63 mg every 6 (six) hours as needed for Wheezing or Shortness of Breath. [facility] buPROPion XL (WELLBUTRIN XL) 150 mg 24 hr tablet 03-01 00:00: 00 Yes [id number] 150mg Take 1 tablet by mouth daily. [facility] sodium chloride 0.9 % nebulizer solution 03-01 00:00: 00 Yes [id number] 3mL Use 3 mL as directed every 6 (six) hours as needed for Wheezing (cough/con gestion). [facility] ipratropium 0.02 % nebulizer solution 03-01 00:00: 00 Yes [id number] .5mg Inhale 2.5 mL every 6 (six) hours as needed for Wheezing or Shortness of Breath. [facility] levalbutero l 0.63 mg/3 mL nebulizer solution 03-01 00:00: 00 Yes [id number] .63mg Inhale 0.63 mg every 6 (six) hours as needed for Wheezing or Shortness of Breath. [facility] buPROPion XL (WELLBUTRIN XL) 150 mg 24 hr tablet 03-01 00:00: 00 Yes [id number] 150mg Take 1 tablet by mouth daily. [facility] sodium chloride 0.9 % nebulizer solution 03-01 00:00: 00 Yes [id number] 3mL Use 3 mL as directed every 6 (six) hours as needed for Wheezing (cough/con gestion). [facility] ipratropium 0.02 % nebulizer solution 03-01 00:00: 00 Yes [id number] .5mg Inhale 2.5 mL every 6 (six) hours as needed for Wheezing or Shortness of Breath. [facility] levalbutero l 0.63 mg/3 mL nebulizer solution 03-01 00:00: 00 Yes [id number] .63mg Inhale 0.63 mg every 6 (six) hours as needed for Wheezing or Shortness of Breath. [facility] buPROPion XL (WELLBUTRIN XL) 150 mg 24 hr tablet 03-01 00:00: 00 Yes [id number] 150mg Take 1 tablet by mouth daily. [facility] sodium chloride 0.9 % nebulizer solution 03-01 00:00: 00 Yes [id number] 3mL Use 3 mL as directed every 6 (six) hours as needed for Wheezing (cough/con gestion). [facility] ipratropium 0.02 % nebulizer solution 03-01 00:00: 00 Yes [id number] .5mg Inhale 2.5 mL every 6 (six) hours as needed for Wheezing or Shortness of Breath. [facility] levalbutero l 0.63 mg/3 mL nebulizer solution 03-01 00:00: 00 Yes [id number] .63mg Inhale 0.63 mg every 6 (six) hours as needed for Wheezing or Shortness of Breath. [facility] buPROPion XL (WELLBUTRIN XL) 150 mg 24 hr tablet 03-01 00:00: 00 Yes [id number] 150mg Take 1 tablet by mouth daily. [facility] sodium chloride 0.9 % nebulizer solution 03-01 00:00: 00 Yes [id number] 3mL Use 3 mL as directed every 6 (six) hours as needed for Wheezing (cough/con gestion). [facility] ipratropium 0.02 % nebulizer solution 03-01 00:00: 00 Yes [id number] .5mg Inhale 2.5 mL every 6 (six) hours as needed for Wheezing or Shortness of Breath. [facility] levalbutero l 0.63 mg/3 mL nebulizer solution 03-01 00:00: 00 Yes [id number] .63mg Inhale 0.63 mg every 6 (six) hours as needed for Wheezing or Shortness of Breath. [facility] buPROPion XL (WELLBUTRIN XL) 150 mg 24 hr tablet 03-01 00:00: 00 Yes [id number] 150mg Take 1 tablet by mouth daily. [facility] sodium chloride 0.9 % nebulizer solution 03-01 00:00: 00 Yes [id number] 3mL Use 3 mL as directed every 6 (six) hours as needed for Wheezing (cough/con gestion). [facility] ipratropium 0.02 % nebulizer solution 03-01 00:00: 00 Yes [id number] .5mg Inhale 2.5 mL every 6 (six) hours as needed for Wheezing or Shortness of Breath. [facility] levalbutero l 0.63 mg/3 mL nebulizer solution 03-01 00:00: 00 Yes [id number] .63mg Inhale 0.63 mg every 6 (six) hours as needed for Wheezing or Shortness of Breath. [facility] buPROPion XL (WELLBUTRIN XL) 150 mg 24 hr tablet 03-01 00:00: 00 Yes [id number] 150mg Take 1 tablet by mouth daily. [facility] sodium chloride 0.9 % nebulizer solution 03-01 00:00: 00 Yes [id number] 3mL Use 3 mL as directed every 6 (six) hours as needed for Wheezing (cough/con gestion). [facility] ipratropium 0.02 % nebulizer solution 03-01 00:00: 00 Yes [id number] .5mg Inhale 2.5 mL every 6 (six) hours as needed for Wheezing or Shortness of Breath. [facility] levalbutero l 0.63 mg/3 mL nebulizer solution 03-01 00:00: 00 Yes [id number] .63mg Inhale 0.63 mg every 6 (six) hours as needed for Wheezing or Shortness of Breath. [facility] buPROPion XL (WELLBUTRIN XL) 150 mg 24 hr tablet 03-01 00:00: 00 Yes [id number] 150mg Take 1 tablet by mouth daily. [facility] sodium chloride 0.9 % nebulizer solution 03-01 00:00: 00 Yes [id number] 3mL Use 3 mL as directed every 6 (six) hours as needed for Wheezing (cough/con gestion). [facility] ipratropium 0.02 % nebulizer solution 03-01 00:00: 00 Yes [id number] .5mg Inhale 2.5 mL every 6 (six) hours as needed for Wheezing or Shortness of Breath. [facility] levalbutero l 0.63 mg/3 mL nebulizer solution 03-01 00:00: 00 Yes [id number] .63mg Inhale 0.63 mg every 6 (six) hours as needed for Wheezing or Shortness of Breath. [facility] buPROPion XL (WELLBUTRIN XL) 150 mg 24 hr tablet 03-01 00:00: 00 Yes [id number] 150mg Take 1 tablet by mouth daily. [facility] sodium chloride 0.9 % nebulizer solution 03-01 00:00: 00 Yes [id number] 3mL Use 3 mL as directed every 6 (six) hours as needed for Wheezing (cough/con gestion). [facility] ipratropium 0.02 % nebulizer solution 03-01 00:00: 00 Yes [id number] .5mg Inhale 2.5 mL every 6 (six) hours as needed for Wheezing or Shortness of Breath. [facility] levalbutero l 0.63 mg/3 mL nebulizer solution 03-01 00:00: 00 Yes [id number] .63mg Inhale 0.63 mg every 6 (six) hours as needed for Wheezing or Shortness of Breath. [facility] buPROPion XL (WELLBUTRIN XL) 150 mg 24 hr tablet 03-01 00:00: 00 Yes [id number] 150mg Take 1 tablet by mouth daily. [facility] sodium chloride 0.9 % nebulizer solution 03-01 00:00: 00 Yes [id number] 3mL Use 3 mL as directed every 6 (six) hours as needed for Wheezing (cough/con gestion). [facility] ipratropium 0.02 % nebulizer solution 03-01 00:00: 00 Yes [id number] .5mg Inhale 2.5 mL every 6 (six) hours as needed for Wheezing or Shortness of Breath. [facility] levalbutero l 0.63 mg/3 mL nebulizer solution 03-01 00:00: 00 Yes [id number] .63mg Inhale 0.63 mg every 6 (six) hours as needed for Wheezing or Shortness of Breath. [facility] buPROPion XL (WELLBUTRIN XL) 150 mg 24 hr tablet 03-01 00:00: 00 Yes [id number] 150mg Take 1 tablet by mouth daily. [facility] sodium chloride 0.9 % nebulizer solution 03-01 00:00: 00 Yes [id number] 3mL Use 3 mL as directed every 6 (six) hours as needed for Wheezing (cough/con gestion). [facility] ipratropium 0.02 % nebulizer solution 03-01 00:00: 00 Yes [id number] .5mg Inhale 2.5 mL every 6 (six) hours as needed for Wheezing or Shortness of Breath. [facility] levalbutero l 0.63 mg/3 mL nebulizer solution 03-01 00:00: 00 Yes [id number] .63mg Inhale 0.63 mg every 6 (six) hours as needed for Wheezing or Shortness of Breath. [facility] buPROPion XL (WELLBUTRIN XL) 150 mg 24 hr tablet 03-01 00:00: 00 Yes [id number] 150mg Take 1 tablet by mouth daily. [facility] sodium chloride 0.9 % nebulizer solution 03-01 00:00: 00 Yes [id number] 3mL Use 3 mL as directed every 6 (six) hours as needed for Wheezing (cough/con gestion). [facility] ipratropium 0.02 % nebulizer solution 03-01 00:00: 00 Yes [id number] .5mg Inhale 2.5 mL every 6 (six) hours as needed for Wheezing or Shortness of Breath. [facility] levalbutero l 0.63 mg/3 mL nebulizer solution 03-01 00:00: 00 Yes [id number] .63mg Inhale 0.63 mg every 6 (six) hours as needed for Wheezing or Shortness of Breath. [facility] buPROPion XL (WELLBUTRIN XL) 150 mg 24 hr tablet 03-01 00:00: 00 Yes [id number] 150mg Take 1 tablet by mouth daily. [facility] sodium chloride 0.9 % nebulizer solution 03-01 00:00: 00 Yes [id number] 3mL Use 3 mL as directed every 6 (six) hours as needed for Wheezing (cough/con gestion). [facility] ipratropium 0.02 % nebulizer solution 03-01 00:00: 00 Yes [id number] .5mg Inhale 2.5 mL every 6 (six) hours as needed for Wheezing or Shortness of Breath. [facility] levalbutero l 0.63 mg/3 mL nebulizer solution 03-01 00:00: 00 Yes [id number] .63mg Inhale 0.63 mg every 6 (six) hours as needed for Wheezing or Shortness of Breath. [facility] buPROPion XL (WELLBUTRIN XL) 150 mg 24 hr tablet 03-01 00:00: 00 Yes [id number] 150mg Take 1 tablet by mouth daily. [facility] sodium chloride 0.9 % nebulizer solution 03-01 00:00: 00 Yes [id number] 3mL Use 3 mL as directed every 6 (six) hours as needed for Wheezing (cough/con gestion). [facility] ipratropium 0.02 % nebulizer solution 03-01 00:00: 00 Yes [id number] .5mg Inhale 2.5 mL every 6 (six) hours as needed for Wheezing or Shortness of Breath. [facility] levalbutero l 0.63 mg/3 mL nebulizer solution 03-01 00:00: 00 Yes [id number] .63mg Inhale 0.63 mg every 6 (six) hours as needed for Wheezing or Shortness of Breath. [facility] buPROPion XL (WELLBUTRIN XL) 150 mg 24 hr tablet 03-01 00:00: 00 Yes [id number] 150mg Take 1 tablet by mouth daily. [facility] sodium chloride 0.9 % nebulizer solution 03-01 00:00: 00 Yes [id number] 3mL Use 3 mL as directed every 6 (six) hours as needed for Wheezing (cough/con gestion). [facility] ipratropium 0.02 % nebulizer solution 03-01 00:00: 00 Yes [id number] .5mg Inhale 2.5 mL every 6 (six) hours as needed for Wheezing or Shortness of Breath. [facility] levalbutero l 0.63 mg/3 mL nebulizer solution 03-01 00:00: 00 Yes [id number] .63mg Inhale 0.63 mg every 6 (six) hours as needed for Wheezing or Shortness of Breath. [facility] buPROPion XL (WELLBUTRIN XL) 150 mg 24 hr tablet 03-01 00:00: 00 Yes [id number] 150mg Take 1 tablet by mouth daily. [facility] sodium chloride 0.9 % nebulizer solution 03-01 00:00: 00 Yes [id number] 3mL Use 3 mL as directed every 6 (six) hours as needed for Wheezing (cough/con gestion). [facility] ipratropium 0.02 % nebulizer solution 03-01 00:00: 00 Yes [id number] .5mg Inhale 2.5 mL every 6 (six) hours as needed for Wheezing or Shortness of Breath. [facility] levalbutero l 0.63 mg/3 mL nebulizer solution 03-01 00:00: 00 Yes [id number] .63mg Inhale 0.63 mg every 6 (six) hours as needed for Wheezing or Shortness of Breath. [facility] buPROPion XL (WELLBUTRIN XL) 150 mg 24 hr tablet 03-01 00:00: 00 Yes [id number] 150mg Take 1 tablet by mouth daily. [facility] sodium chloride 0.9 % nebulizer solution 03-01 00:00: 00 Yes [id number] 3mL Use 3 mL as directed every 6 (six) hours as needed for Wheezing (cough/con gestion). [facility] ipratropium 0.02 % nebulizer solution 03-01 00:00: 00 Yes [id number] .5mg Inhale 2.5 mL every 6 (six) hours as needed for Wheezing or Shortness of Breath. [facility] levalbutero l 0.63 mg/3 mL nebulizer solution 03-01 00:00: 00 Yes [id number] .63mg Inhale 0.63 mg every 6 (six) hours as needed for Wheezing or Shortness of Breath. [facility] buPROPion XL (WELLBUTRIN XL) 150 mg 24 hr tablet 03-01 00:00: 00 Yes [id number] 150mg Take 1 tablet by mouth daily. [facility] sodium chloride 0.9 % nebulizer solution 03-01 00:00: 00 Yes [id number] 3mL Use 3 mL as directed every 6 (six) hours as needed for Wheezing (cough/con gestion). [facility] ipratropium 0.02 % nebulizer solution 03-01 00:00: 00 Yes [id number] .5mg Inhale 2.5 mL every 6 (six) hours as needed for Wheezing or Shortness of Breath. [facility] levalbutero l 0.63 mg/3 mL nebulizer solution 03-01 00:00: 00 Yes [id number] .63mg Inhale 0.63 mg every 6 (six) hours as needed for Wheezing or Shortness of Breath. [facility] buPROPion XL (WELLBUTRIN XL) 150 mg 24 hr tablet 03-01 00:00: 00 Yes [id number] 150mg Take 1 tablet by mouth daily. [facility] sodium chloride 0.9 % nebulizer solution 03-01 00:00: 00 Yes [id number] 3mL Use 3 mL as directed every 6 (six) hours as needed for Wheezing (cough/con gestion). [facility] ipratropium 0.02 % nebulizer solution 03-01 00:00: 00 Yes [id number] .5mg Inhale 2.5 mL every 6 (six) hours as needed for Wheezing or Shortness of Breath. [facility] levalbutero l 0.63 mg/3 mL nebulizer solution 03-01 00:00: 00 Yes [id number] .63mg Inhale 0.63 mg every 6 (six) hours as needed for Wheezing or Shortness of Breath. [facility] buPROPion XL (WELLBUTRIN XL) 150 mg 24 hr tablet 03-01 00:00: 00 Yes [id number] 150mg Take 1 tablet by mouth daily. [facility] sodium chloride 0.9 % nebulizer solution 03-01 00:00: 00 Yes [id number] 3mL Use 3 mL as directed every 6 (six) hours as needed for Wheezing (cough/con gestion). [facility] ipratropium 0.02 % nebulizer solution 03-01 00:00: 00 Yes [id number] .5mg Inhale 2.5 mL every 6 (six) hours as needed for Wheezing or Shortness of Breath. [facility] levalbutero l 0.63 mg/3 mL nebulizer solution 03-01 00:00: 00 Yes [id number] .63mg Inhale 0.63 mg every 6 (six) hours as needed for Wheezing or Shortness of Breath. [facility] buPROPion XL (WELLBUTRIN XL) 150 mg 24 hr tablet 03-01 00:00: 00 01-15 00:00 :00 No [id number] 150mg Take 1 tablet by mouth daily. [facility] sodium chloride 0.9 % nebulizer solution 03-01 00:00: 01-15 00:00 :00 No [id number] 3mL Use 3 mL as directed every 6 (six) hours as needed for Wheezing (cough/con gestion). [facility] ipratropium 0.02 % nebulizer solution 03-01 00:00: 01-15 00:00 :00 No [id number] .5mg Inhale 2.5 mL every 6 (six) hours as needed for Wheezing or Shortness of Breath. [facility] levalbutero l 0.63 mg/3 mL nebulizer solution 03-01 00:00: 00 01-15 00:00 :00 No [id number] .63mg Inhale 0.63 mg every 6 (six) hours as needed for Wheezing or Shortness of Breath. [facility] buPROPion XL (WELLBUTRIN XL) 150 mg 24 hr tablet 03-01 00:00: 01-15 00:00 :00 No [id number] 150mg Take 1 tablet by mouth daily. [facility] sodium chloride 0.9 % nebulizer solution 03-01 00:00: 00 01-15 00:00 :00 No [id number] 3mL Use 3 mL as directed every 6 (six) hours as needed for Wheezing (cough/con gestion). [facility] ipratropium 0.02 % nebulizer solution 03-01 00:00: 01-15 00:00 :00 No [id number] .5mg Inhale 2.5 mL every 6 (six) hours as needed for Wheezing or Shortness of Breath. [facility] levalbutero l 0.63 mg/3 mL nebulizer solution 03-01 00:00: 00 01-15 00:00 :00 No [id number] .63mg Inhale 0.63 mg every 6 (six) hours as needed for Wheezing or Shortness of Breath. [facility] fluticasone furoate-telma anterol (BREO ELLIPTA) 200-25 mcg/dose DsDv 6- 00:00: 04-07 00:00 :00 No [id number] 200ug Inhale 200 mcg daily. [facility] fluticasone furoate-telma anterol (BREO ELLIPTA) 200-25 mcg/dose DsDv 6- 00:00: 00 04-07 00:00 :00 No [id number] 200ug Inhale 200 mcg daily. [facility] fluticasone furoate-telma anterol (BREO ELLIPTA) 200-25 mcg/dose DsDv 6 00:00: 00 04-07 00:00 :00 No [id number] 200ug Inhale 200 mcg daily. [facility] fluticasone furoate-telma anterol (BREO ELLIPTA) 200-25 mcg/dose DsDv 03-01 00:00: 00 04-07 00:00 :00 No [id number] 200ug Inhale 200 mcg daily. [facility] fluticasone furoate-telma anterol (BREO ELLIPTA) 200-25 mcg/dose DsDv 03-01 00:00: 00 04-07 00:00 :00 No [id number] 200ug Inhale 200 mcg daily. [facility] fluticasone furoate-telma anterol (BREO ELLIPTA) 200-25 mcg/dose DsDv 03-01 00:00: 00 04-07 00:00 :00 No [id number] 200ug Inhale 200 mcg daily. [facility] fluticasone furoate-telma anterol (BREO ELLIPTA) 200-25 mcg/dose DsDv 6 00:00: 04-07 00:00 :00 No [id number] 200ug Inhale 200 mcg daily. [facility] fluticasone furoate-telma anterol (BREO ELLIPTA) 200-25 mcg/dose DsDv 6- 00:00: 00 04-07 00:00 :00 No [id number] 200ug Inhale 200 mcg daily. [facility] furosemide 20 mg tablet 03-01 00:00: 04-01 04:59 :00 No [id number] 20mg Take 1 tablet by mouth daily for 30 days. [facility] furosemide 20 mg tablet 03-01 00:00: 04-01 04:59 :00 No [id number] 20mg Take 1 tablet by mouth daily for 30 days. [facility] furosemide 20 mg tablet 03-01 00:00: 04-01 04:59 :00 No [id number] 20mg Take 1 tablet by mouth daily for 30 days. [facility] furosemide 20 mg tablet 03-01 00:00: 04-01 04:59 :00 No [id number] 20mg Take 1 tablet by mouth daily for 30 days. [facility] furosemide 20 mg tablet 03-01 00:00: 04-01 04:59 :00 No [id number] 20mg Take 1 tablet by mouth daily for 30 days. [facility] furosemide 20 mg tablet 03-01 00:00: 04-01 04:59 :00 No [id number] 20mg Take 1 tablet by mouth daily for 30 days. [facility] furosemide 20 mg tablet 03-01 00:00: 04-01 04:59 :00 No [id number] 20mg Take 1 tablet by mouth daily for 30 days. [facility] furosemide 20 mg tablet 03-01 00:00: 04-01 04:59 :00 No [id number] 20mg Take 1 tablet by mouth daily for 30 days. [facility] furosemide 20 mg tablet 03-01 00:00: 04-01 04:59 :00 No [id number] 20mg Take 1 tablet by mouth daily for 30 days. [facility] furosemide 20 mg tablet 03-01 00:00: 04-01 04:59 :00 No [id number] 20mg Take 1 tablet by mouth daily for 30 days. [facility] furosemide 20 mg tablet 03-01 00:00: 04-01 04:59 :00 No [id number] 20mg Take 1 tablet by mouth daily for 30 days. [facility] ity [facility] furosemide 20 mg tablet 03-01 00:00: 04-01 04:59 :00 No [id number] 20mg Take 1 tablet by mouth daily for 30 days. [facility]-01 00:00: 04-01 04:59 :00 No [id number] 20mg Take 1 tablet by mouth daily for 30 days. [facility] furosemide 20 mg tablet 03-01 00:00: 04-01 04:59 :00 No [id number] 20mg Take 1 tablet by mouth daily for 30 days. [facility] furosemide 20 mg tablet 03-01 00:00: 04-01 04:59 :00 No [id number] 20mg Take 1 tablet by mouth daily for 30 days. [facility] furosemide 20 mg tablet 03-01 00:00: 04-01 04:59 :00 No [id number] 20mg Take 1 tablet by mouth daily for 30 days. [facility] furosemide 20 mg tablet 03-01 00:00: 04-01 04:59 :00 No [id number] 20mg Take 1 tablet by mouth daily for 30 days. [facility] furosemide 20 mg tablet 03-01 00:00: 04-01 04:59 :00 No [id number] 20mg Take 1 tablet by mouth daily for 30 days. [facility] furosemide 20 mg tablet 03-01 00:00: 04-01 04:59 :00 No [id number] 20mg Take 1 tablet by mouth daily for 30 days. [facility] furosemide 20 mg tablet 03-01 00:00: 00 04-01 04:59 :00 No [id number] 20mg Take 1 tablet by mouth daily for 30 days. [facility] furosemide 20 mg tablet 03-01 00:00: 04-01 04:59 :00 No [id number] 20mg Take 1 tablet by mouth daily for 30 days. [facility] furosemide 20 mg tablet 03-01 00:00: 00 04-01 04:59 :00 No [id number] 20mg Take 1 tablet by mouth daily for 30 days. [facility] ALPRAZolam 0.5 mg tablet 03-01 00:00: 03-07 00:00 :00 No [id number] .5mg Take 1 tablet by mouth 2 (two) times daily as needed (anxiety). [facility] furosemide (LASIX) tablet 20 mg 02-28 14:00: 00 Yes 20mg 20 mg, Oral, DAILY, First dose on Sat02/29/20 at 0900, Until Discontinu ed, Routine [facility] predniSONE 10 mg tablet 02-28 00:00: 00 Yes [id number] Take 40 mg po qd x 3d, then 30 mg qd x 3d, 20 mg qd x 3d, 10 mg qd x 3d, 5 mg qd x 3d [facility] ALPRAZolam 0.5 mg tablet 02-28 00:00: 00 Yes [id number] .5mg Take 1 tablet by mouth 2 (two) times daily as needed (anxiety). [facility] predniSONE 10 mg tablet 02-28 00:00: 00 Yes [id number] Take 40 mg po qd x 3d, then 30 mg qd x 3d, 20 mg qd x 3d, 10 mg qd x 3d, 5 mg qd x 3d [facility] ALPRAZolam 0.5 mg tablet 02-28 00:00: 00 Yes [id number] .5mg Take 1 tablet by mouth 2 (two) times daily as needed (anxiety). [facility] predniSONE 10 mg tablet 02-28 00:00: 00 Yes [id number] Take 40 mg po qd x 3d, then 30 mg qd x 3d, 20 mg qd x 3d, 10 mg qd x 3d, 5 mg qd x 3d [facility] predniSONE 10 mg tablet 02-28 00:00: 00 Yes [id number] Take 40 mg po qd x 3d, then 30 mg qd x 3d, 20 mg qd x 3d, 10 mg qd x 3d, 5 mg qd x 3d [facility] furosemide 20 mg tablet 02-28 00:00: 00 04-07 00:00 :00 No 1{tbl} Take 1 tablet by mouth daily. [facility] furosemide 20 mg tablet 02-28 00:00: 04-07 00:00 :00 No 1{tbl} Take 1 tablet by mouth daily. [facility] furosemide 20 mg tablet 02-28 00:00: 00 04-07 00:00 :00 No 1{tbl} Take 1 tablet by mouth daily. [facility] furosemide 20 mg tablet 02-28 00:00: 00 04-07 00:00 :00 No 1{tbl} Take 1 tablet by mouth daily. [facility] furosemide 20 mg tablet 02-28 00:00: 04-07 00:00 :00 No 1{tbl} Take 1 tablet by mouth daily. [facility] furosemide 20 mg tablet 02-28 00:00: 00 04-07 00:00 :00 No 1{tbl} Take 1 tablet by mouth daily. [facility] furosemide 20 mg tablet 02-28 00:00: 00 04-07 00:00 :00 No 1{tbl} Take 1 tablet by mouth daily. [facility] furosemide 20 mg tablet 02-28 00:00: 00 04-07 00:00 :00 No 1{tbl} Take 1 tablet by mouth daily. [facility] predniSONE 10 mg tablet 02-28 00:00: 00 03-07 00:00 :00 No [id number] Take 40 mg po qd x 3d, then 30 mg qd x 3d, 20 mg qd x 3d, 10 mg qd x 3d, 5 mg qd x 3d [facility] KCL (KLOR-CON M20) tablet 40 mEq 02-27 21:30: 00 02-28 01:30 :00 No 40meq 40 mEq, Oral, ONCE, 1 dose, 02/28/20 at 1630, Routine [facility] melatonin (MELATIN) tablet 6 mg 02-26 06:52: 00 02-26 07:00 :00 No 6mg 6 mg, Oral, ONCE, 1 dose, 02/27/20 at 0200, Routine [facility] predniSONE (DELTASONE) tablet 40 mg 02-25 14:00: 00 02-28 13:28 :00 No 40mg 40 mg, Oral, DAILY, 4 doses, First dose on Sat02/26/20 at 0900, Last dose on Sat02/29/20 at 0900, Routine [facility] methylpredn isolone sod succ (SOLU-MEDRO L) injection 60 mg 02-25 01:00: 00 02-25 01:30 :00 No 60mg 60 mg, Slow IV Push, BID, 1 dose, First dose on Sat02/25/20 at 2000, Routine [facility] levalbutero l (XOPENEX) nebulizer solution 1.25 mg 02-24 23:00: 00 Yes 1.25mg 1.25 mg, Inhalation , Q6H, First dose on Sat02/25/20 at 1800, Until Discontinu ed, Routine
Approved by: [employer] PROVIDER [facility] ipratropium (ATROVENT) 0.02 % nebulizer solution 0.5 mg 02-24 23:00: 00 Yes .5mg 0.5 mg, Inhalation , Q6H, First dose on Sat02/25/20 at 1800, Until Discontinu ed, Routine [facility] ALPRAZolam (XANAX) tablet 0.5 mg 02-24 18:47: 31 Yes .5mg 0.5 mg, Oral, TIDPRN, Starting Sat02/25/20 at 1347, Until Discontinu ed, Routine, anxiety [facility] levalbutero l (XOPENEX) nebulizer solution 1.25 mg 02-24 17:00: 00 02-24 18:19 :59 No 1.25mg 1.25 mg, Inhalation , Q4H, First dose on Monse 02/25/20 at 1200, Until Discontinu ed, Routine
Approved by: [employer] PROVIDER [facility] ipratropium (ATROVENT) 0.02 % nebulizer solution 0.5 mg 02-24 17:00: 00 02-24 18:19 :59 No .5mg 0.5 mg, Inhalation , Q4H, First dose on Monse 02/25/20 at 1200, Until Discontinu ed, Routine [facility] enoxaparin (LOVENOX) injection 40 mg 02-24 14:00: 00 Yes 40mg 40 mg, Subcutaneo us, DAILY, First dose on Monse 02/25/20 at 0900, Until Discontinu ed, Routine [facility] methylpredn isolone sod succ (SOLU-MEDRO L) injection 60 mg 02-24 13:00: 00 02-24 18:00 :37 No 60mg 60 mg, Slow IV Push, BID, First dose on Monse 02/25/20 at 0800, Until Discontinu ed, Routine [facility] doxycycline (VIBRAMYCIN ) 100 mg in NaCl 0.9% (NS) 100 mL MINI-BAG 02-24 06:30: 00 Yes 100mg 100 mg, IV Piggyback, Q12H ABX, First dose on Monse 02/25/20 at 0130, Until Discontinu ed, 100 mL
Reas on for Anti-Infec tive: Empiric Therapy for Suspected Infection< br>Empiric Therapy Site: Respirator y
Durat ion of therapy: 7 days [facility] furosemide (LASIX) injection 20 mg 02-24 06:30: 00 02-24 05:53 :00 No 20mg 20 mg, Slow IV Push, ONCE, 1 dose, Monse 02/25/20 at 0130, GRICEL [facility] ipratropium (ATROVENT) 0.02 % nebulizer solution 0.5 mg 02-24 05:30: 00 02-24 15:11 :42 No .5mg 0.5 mg, Inhalation , Q2H, First dose on Sat02/25/20 at 0030, Until Discontinu ed, Routine [facility] levalbutero l (XOPENEX) nebulizer solution 1.25 mg 02-24 05:30: 00 02-24 15:11 :42 No 1.25mg 1.25 mg, Inhalation , Q2H, First dose on Sat02/25/20 at 0030, Until Discontinu ed, Routine
Approved by: [facility] PROVID[facility] ipratropium (ATROVENT) 0.02 % nebulizer solution 0.5 mg 02-24 05:00: 00 02-24 05:19 :10 No .5mg 0.5 mg, Inhalation , Q4H, First dose on Sat02/25/20 at 0000, Until Discontinu ed, Routine [facility] levalbutero l (XOPENEX) nebulizer solution 1.25 mg 02-24 05:00: 00 02-24 05:19 :10 No 1.25mg 1.25 mg, Inhalation , Q4H, First dose on Sat02/25/20 at 0000, Until Discontinu ed, Routine
Approved by: [facility] PROVID[facility] nicotine (NICODERM) 14 mg/24 hr patch 1 Patch 02-24 04:15: 00 Yes 1{patch } 1 Patch, Topical, Administer over 24 Hours, Q24H, First dose on Sat02/24/20 at 2315, Until Discontinu ed, Routine [facility] docusate (COLACE) capsule 100 mg 02-24 03:15: 00 Yes 100mg 100 mg, Oral, BID, First dose on Sat02/24/20 at 2215, Until Discontinu ed, Routine [facility] furosemide (LASIX) injection 20 mg 02-24 03:15: 00 02-27 20:13 :52 No 20mg 20 mg, Slow IV Push, Q12H, First dose on Sat02/24/20 at 2215, Until Discontinu ed, Routine [facility] budesonide (PULMICORT RESPULE) nebulizer solution 0.5 mg 02-24 03:15: 00 02-24 17:57 :20 No .5mg 0.5 mg, Inhalation , BID, First dose on Sat02/24/20 at 2215, Until Discontinu ed, Routine
[employer] member approving Restricted medication : MEGADC [facility] LORazepam (ATIVAN) injection 0.25 mg 02-24 03:12: 09 02-24 18:47 :20 No .25mg 0.25 mg, Slow IV Push, BIDPRN, Starting Sat02/24/20 at 2212, Until Monse 02/25/20 at 1347, Routine, Anxiety, Agitation [facility] ondansetron (ZOFRAN (PF)) injection 4 mg 02-24 03:10: 49 Yes 4mg 4 mg, Slow IV Push, Q6HPRN, Starting Sat02/24/20 at 2210, Until Discontinu ed, Routine, Nausea and Vomiting (N/V) [facility] albuterol (VENTOLIN) inhaler 2 Puff 02-24 01:00: 00 02-24 00:00 :00 No 2{puff} 2 Puff, Inhalation , ONCE, 1 dose, Sat02/24/20 at 2000, GRICEL
Is this order for a patient with suspected or confirmed COVID-19 infection? Yes [facility] methylpredn isolone sod succ (SOLU-MEDRO L) injection 125 mg 02-24 01:00: 00 02-23 23:53 :00 No 125mg 125 mg, Slow IV Push, ONCE NOW, 1 dose, Sat02/24/20 at 2000, GRICEL [facility] sodium chloride (OCEAN MIST NASAL) 0.65 % nasal spray 1 [place] 02-11 22:25: 08 Yes 1{spray } 1 [place], Nasal, PRN, Starting Sat02/12/20 at 1725, Until Discontinu ed, Routine, Dry/stuffy nose [facility] hydrOXYzine (ATARAX) tablet 10 mg 02-11 20:06: 51 Yes 10mg 10 mg, Oral, Q6HPRN, Starting Sat02/12/20 at 1506, Until Discontinu ed, Routine, Anxiety [facility] LORazepam (ATIVAN) injection 0.5 mg 02-11 02:00: 00 02-11 00:56 :00 No .5mg 0.5 mg, Slow IV Push, ONCE, 1 dose, Monse 02/11/20 at 2100, Routine [facility] doxycycline hyclate (Vibramycin ) capsule 100 mg 02-09 23:00: 00 02-12 13:34 :37 No 100mg 100 mg, Oral, Q12HA2, First dose on Sat02/10/20 at 1800, Until Discontinu ed, GRICEL
Re ason for Anti-Infec tive: Documented Infection< br>Documen lise Infection Site: Respirator y
Durat ion of Therapy: 7 days [facility] predniSONE (DELTASONE) tablet 50 mg 02-09 20:30: 00 Yes 50mg 50 mg, Oral, DAILY, First dose on Sat02/10/20 at 1530, Until Discontinu ed, Routine [facility] enoxaparin (LOVENOX) injection 40 mg 02-09 14:00: 00 Yes 40mg 40 mg, Subcutaneo us, DAILY, First dose on Sat02/10/20 at 0900, Until Discontinu ed, Routine [facility] budesonide (PULMICORT RESPULE) nebulizer solution 0.5 mg 02-09 13:00: 00 Yes .5mg 0.5 mg, Inhalation , BID, First dose on Sat02/10/20 at 0800, Until Discontinu ed, Routine
[employer] member approving Restricted medication : BARBARA BARLOW [facility] ipratropium -albuterol (DUONEB) 0.5 mg-3 mg(2.5 mg base)/3 mL nebulizer solution 3 mL 02-09 13:00: 00 Yes 3mL 3 mL, Inhalation , QID, First dose on Sat02/10/20 at 0800, Until Discontinu ed, Routine [facility] LORazepam (ATIVAN) injection 0.5 mg 02-09 06:33: 49 02-10 14:03 :00 No .5mg 0.5 mg, Slow IV Push, PRN, 2 doses, Starting Sat02/10/20 at 0133, Until Discontinu ed, Routine, Agitation [facility] ipratropium -albuterol (DUONEB) 0.5 mg-3 mg(2.5 mg base)/3 mL nebulizer solution 3 mL 02-09 04:41: 08 Yes 3mL 3 mL, Inhalation , QIDPRN, Starting Sat02/09/20 at 2341, Until Discontinu ed, Routine, Wheezing, Shortness of Breath, Bronchospa sm, Chest tightness [facility] ondansetron (ZOFRAN (PF)) injection 4 mg 02-09 04:40: 54 Yes 4mg 4 mg, Slow IV Push, Q6HPRN, Starting Sat02/09/20 at 2340, Until Discontinu ed, Routine, Nausea and Vomiting (N/V) [facility] acetaminoph en (TYLENOL) tablet 650 mg 02-09 04:40: 49 Yes 650mg 650 mg, Oral, Q6HPRN, Starting Sat02/09/20 at 2340, Until Discontinu ed, Routine, Pain (scale 1-3) [facility] nicotine (NICODERM) 21 mg/24 hr patch 1 Patch 02-09 03:30: 00 Yes 1{patch } 1 Patch, Topical, Administer over 24 Hours, Q24H, First dose on Sat02/09/20 at 2230, Until Discontinu ed, Routine [facility] iohexol (OMNIPAQUE 350 BULK-75 mL) injection 75 mL 02-09 02:15: 00 02-09 02:10 :00 No 75mL 75 mL, Intravenou s, ONCE, 1 dose, Sat02/09/20 at 2130, Routine [facility] albuterol (VENTOLIN) inhaler 2 Puff 02-09 01:15: 00 02-09 00:27 :00 No 2{puff} 2 Puff, Inhalation , ONCE, 1 dose, Sat02/09/20 at 2014, GRICEL
Is this order for a patient with suspected or confirmed COVID-19 infection? Yes [facility] methylpredn isolone sod succ (SOLU-MEDRO L) injection 125 mg 02-09 01:15: 00 02-09 00:40 :00 No 125mg 125 mg, Slow IV Push, ONCE NOW, 1 dose, Sat02/09/20 at 2015, GRICEL [facility] nicotine 14 mg/24 hr patch 02-02 00:00: 00 Yes [id number] 1{patch } Apply 1 Patch to area(s) every 24 (twenty-fo ur) hours. [facility] nicotine 14 mg/24 hr patch 02-02 00:00: 00 Yes [id number] 1{patch } Apply 1 Patch to area(s) every 24 (twenty-fo ur) hours. [facility] nicotine 14 mg/24 hr patch 02-02 00:00: 00 Yes [id number] 1{patch } Apply 1 Patch to area(s) every 24 (twenty-fo ur) hours. [facility] nicotine 14 mg/24 hr patch 02-02 00:00: 00 Yes [id number] 1{patch } Apply 1 Patch to area(s) every 24 (twenty-fo ur) hours. [facility] nicotine 14 mg/24 hr patch 02-02 00:00: 00 Yes [id number] 1{patch } Apply 1 Patch to area(s) every 24 (twenty-fo ur) hours. [facility] nicotine 14 mg/24 hr patch 0 02-02 00:00: 00 Yes [id number] 1{patch } Apply 1 Patch to area(s) every 24 (twenty-fo ur) hours. [facility] nicotine 14 mg/24 hr patch 0 02-02 00:00: 00 Yes [id number] 1{patch } Apply 1 Patch to area(s) every 24 (twenty-fo ur) hours. [facility] nicotine 14 mg/24 hr patch 2020-0 5-13 00:00: 00 Yes [id number] 1{patch } Apply 1 Patch to area(s) every 24 (twenty-fo ur) hours. [facility] nicotine 14 mg/24 hr patch 2020-0 5-13 00:00: 00 Yes [id number] 1{patch } Apply 1 Patch to area(s) every 24 (twenty-fo ur) hours. [facility] nicotine 14 mg/24 hr patch 2020-0 5-13 00:00: 00 Yes [id number] 1{patch } Apply 1 Patch to area(s) every 24 (twenty-fo ur) hours. [facility] nicotine 14 mg/24 hr patch 2020-0 5-13 00:00: 00 Yes [id number] 1{patch } Apply 1 Patch to area(s) every 24 (twenty-fo ur) hours. [facility] nicotine 14 mg/24 hr patch 2020-0 5-13 00:00: 00 Yes [id number] 1{patch } Apply 1 Patch to area(s) every 24 (twenty-fo ur) hours. [facility] nicotine 14 mg/24 hr patch 2020-0 5-13 00:00: 00 Yes [id number] 1{patch } Apply 1 Patch to area(s) every 24 (twenty-fo ur) hours. [facility] nicotine 14 mg/24 hr patch 2020-0 5-13 00:00: 00 Yes [id number] 1{patch } Apply 1 Patch to area(s) every 24 (twenty-fo ur) hours. [facility] nicotine 14 mg/24 hr patch 2020-0 5-13 00:00: 00 Yes [id number] 1{patch } Apply 1 Patch to area(s) every 24 (twenty-fo ur) hours. [facility] nicotine 14 mg/24 hr patch 2020-0 5-13 00:00: 00 Yes [id number] 1{patch } Apply 1 Patch to area(s) every 24 (twenty-fo ur) hours. [facility] nicotine 14 mg/24 hr patch 2020-0 5-13 00:00: 00 Yes [id number] 1{patch } Apply 1 Patch to area(s) every 24 (twenty-fo ur) hours. [facility] nicotine 14 mg/24 hr patch 02-02 00:00: 00 Yes [id number] 1{patch } Apply 1 Patch to area(s) every 24 (twenty-fo ur) hours. [facility] nicotine 14 mg/24 hr patch 02-02 00:00: 00 Yes [id number] 1{patch } Apply 1 Patch to area(s) every 24 (twenty-fo ur) hours. [facility] nicotine 14 mg/24 hr patch 02-02 00:00: 00 Yes [id number] 1{patch } Apply 1 Patch to area(s) every 24 (twenty-fo ur) hours. [facility] nicotine 14 mg/24 hr patch 02-02 00:00: 00 03-01 00:00 :00 No [id number] 1{patch } Apply 1 Patch to area(s) every 24 (twenty-fo ur) hours. [facility] predniSONE (DELTASONE) tablet 50 mg 02-01 14:00: 00 Yes 50mg 50 mg, Oral, DAILY, First dose on Sat02/02/20 at 0900, Until Discontinu ed, Routine [facility] lactobacill us acidophilus 25 million cell -100 mg captab 02-01 00:00: 00 Yes [id number] 1{tbl} Take 1 tablet by mouth 2 (two) times daily. [facility] hydrOXYzine 25 mg tablet 02-01 00:00: 00 Yes [id number] 25mg Take 1 tablet by mouth every 6 (six) hours as needed for Anxiety. [facility] predniSONE 10 mg tablet 02-01 00:00: 00 Yes [id number] Take 40 mg po qd x 3d, then 30 mg qd x 3d, 20 mg qd x 3d, 10 mg qd x 3d, 5 mg qd x 3d [facility] lactobacill us acidophilus 25 million cell -100 mg captab 02-01 00:00: 00 Yes [id number] 1{tbl} Take 1 tablet by mouth 2 (two) times daily. [facility] hydrOXYzine 25 mg tablet 02-01 00:00: 00 Yes [id number] 25mg Take 1 tablet by mouth every 6 (six) hours as needed for Anxiety. [facility] predniSONE 10 mg tablet 02-01 00:00: 00 Yes [id number] Take 40 mg po qd x 3d, then 30 mg qd x 3d, 20 mg qd x 3d, 10 mg qd x 3d, 5 mg qd x 3d [facility] lactobacill us acidophilus 25 million cell -100 mg captab 02-01 00:00: 00 Yes [id number] 1{tbl} Take 1 tablet by mouth 2 (two) times daily. [facility] hydrOXYzine 25 mg tablet 02-01 00:00: 00 Yes [id number] 25mg Take 1 tablet by mouth every 6 (six) hours as needed for Anxiety. [facility] predniSONE 10 mg tablet 02-01 00:00: 00 Yes [id number] Take 40 mg po qd x 3d, then 30 mg qd x 3d, 20 mg qd x 3d, 10 mg qd x 3d, 5 mg qd x 3d [facility] lactobacill us acidophilus 25 million cell -100 mg captab 02-01 00:00: 00 Yes [id number] 1{tbl} Take 1 tablet by mouth 2 (two) times daily. [facility] hydrOXYzine 25 mg tablet 02-01 00:00: 00 Yes [id number] 25mg Take 1 tablet by mouth every 6 (six) hours as needed for Anxiety. [facility] predniSONE 10 mg tablet 02-01 00:00: 00 Yes [id number] Take 40 mg po qd x 3d, then 30 mg qd x 3d, 20 mg qd x 3d, 10 mg qd x 3d, 5 mg qd x 3d [facility] lactobacill us acidophilus 25 million cell -100 mg captab 02-01 00:00: 00 Yes [id number] 1{tbl} Take 1 tablet by mouth 2 (two) times daily. [facility] hydrOXYzine 25 mg tablet 02-01 00:00: 00 Yes [id number] 25mg Take 1 tablet by mouth every 6 (six) hours as needed for Anxiety. [facility] predniSONE 10 mg tablet 2019-0 -12 00:00: 00 Yes [id number] Take 40 mg po qd x 3d, then 30 mg qd x 3d, 20 mg qd x 3d, 10 mg qd x 3d, 5 mg qd x 3d [facility] lactobacill us acidophilus 25 million cell -100 mg captab 2019-0 -12 00:00: 00 Yes [id number] 1{tbl} Take 1 tablet by mouth 2 (two) times daily. [facility] hydrOXYzine 25 mg tablet 2019-0 12 00:00: 00 Yes [id number] 25mg Take 1 tablet by mouth every 6 (six) hours as needed for Anxiety. [facility] predniSONE 10 mg tablet 2019-0 12 00:00: 00 Yes [id number] Take 40 mg po qd x 3d, then 30 mg qd x 3d, 20 mg qd x 3d, 10 mg qd x 3d, 5 mg qd x 3d [facility] lactobacill us acidophilus 25 million cell -100 mg captab 0 02-01 00:00: 00 Yes [id number] 1{tbl} Take 1 tablet by mouth 2 (two) times daily. [facility] hydrOXYzine 25 mg tablet 0 12 00:00: 00 Yes [id number] 25mg Take 1 tablet by mouth every 6 (six) hours as needed for Anxiety. [facility] predniSONE 10 mg tablet 2019-0 12 00:00: 00 Yes [id number] Take 40 mg po qd x 3d, then 30 mg qd x 3d, 20 mg qd x 3d, 10 mg qd x 3d, 5 mg qd x 3d [facility] lactobacill us acidophilus 25 million cell -100 mg captab 2019-0 12 00:00: 00 Yes [id number] 1{tbl} Take 1 tablet by mouth 2 (two) times daily. [facility] hydrOXYzine 25 mg tablet 2019-0 -12 00:00: 00 Yes [id number] 25mg Take 1 tablet by mouth every 6 (six) hours as needed for Anxiety. [facility] predniSONE 10 mg tablet 2019-0 12 00:00: 00 Yes [id number] Take 40 mg po qd x 3d, then 30 mg qd x 3d, 20 mg qd x 3d, 10 mg qd x 3d, 5 mg qd x 3d [facility] lactobacill us acidophilus 25 million cell -100 mg captab 2020-0 12 00:00: 00 Yes [id number] 1{tbl} Take 1 tablet by mouth 2 (two) times daily. [facility] hydrOXYzine 25 mg tablet 2019-0 12 00:00: 00 Yes [id number] 25mg Take 1 tablet by mouth every 6 (six) hours as needed for Anxiety. [facility] predniSONE 10 mg tablet 0 02-01 00:00: 00 Yes [id number] Take 40 mg po qd x 3d, then 30 mg qd x 3d, 20 mg qd x 3d, 10 mg qd x 3d, 5 mg qd x 3d [facility] lactobacill us acidophilus 25 million cell -100 mg captab 0 02-01 00:00: 00 Yes [id number] 1{tbl} Take 1 tablet by mouth 2 (two) times daily. [facility] hydrOXYzine 25 mg tablet 2019-0 02-01 00:00: 00 Yes [id number] 25mg Take 1 tablet by mouth every 6 (six) hours as needed for Anxiety. [facility] predniSONE 10 mg tablet 0 12 00:00: 00 Yes [id number] Take 40 mg po qd x 3d, then 30 mg qd x 3d, 20 mg qd x 3d, 10 mg qd x 3d, 5 mg qd x 3d [facility] lactobacill us acidophilus 25 million cell -100 mg captab 2019-0 12 00:00: 00 Yes [id number] 1{tbl} Take 1 tablet by mouth 2 (two) times daily. [facility] hydrOXYzine 25 mg tablet 2019-0 12 00:00: 00 Yes [id number] 25mg Take 1 tablet by mouth every 6 (six) hours as needed for Anxiety. [facility] predniSONE 10 mg tablet 2019-0 12 00:00: 00 Yes [id number] Take 40 mg po qd x 3d, then 30 mg qd x 3d, 20 mg qd x 3d, 10 mg qd x 3d, 5 mg qd x 3d [facility] lactobacill us acidophilus 25 million cell -100 mg captab 02-01 00:00: 00 Yes [id number] 1{tbl} Take 1 tablet by mouth 2 (two) times daily. [facility] hydrOXYzine 25 mg tablet 02-01 00:00: 00 Yes [id number] 25mg Take 1 tablet by mouth every 6 (six) hours as needed for Anxiety. [facility] predniSONE 10 mg tablet 02-01 00:00: 00 Yes [id number] Take 40 mg po qd x 3d, then 30 mg qd x 3d, 20 mg qd x 3d, 10 mg qd x 3d, 5 mg qd x 3d [facility] lactobacill us acidophilus 25 million cell -100 mg captab 02-01 00:00: 00 Yes [id number] 1{tbl} Take 1 tablet by mouth 2 (two) times daily. [facility] hydrOXYzine 25 mg tablet 02-01 00:00: 00 Yes [id number] 25mg Take 1 tablet by mouth every 6 (six) hours as needed for Anxiety. [facility] predniSONE 10 mg tablet 02-01 00:00: 00 Yes [id number] Take 40 mg po qd x 3d, then 30 mg qd x 3d, 20 mg qd x 3d, 10 mg qd x 3d, 5 mg qd x 3d [facility] lactobacill us acidophilus 25 million cell -100 mg captab 02-01 00:00: 00 Yes [id number] 1{tbl} Take 1 tablet by mouth 2 (two) times daily. [facility] hydrOXYzine 25 mg tablet 02-01 00:00: 00 Yes [id number] 25mg Take 1 tablet by mouth every 6 (six) hours as needed for Anxiety. [facility] predniSONE 10 mg tablet 12 00:00: 00 Yes [id number] Take 40 mg po qd x 3d, then 30 mg qd x 3d, 20 mg qd x 3d, 10 mg qd x 3d, 5 mg qd x 3d [facility] lactobacill us acidophilus 25 million cell -100 mg captab 0 02-01 00:00: 00 Yes [id number] 1{tbl} Take 1 tablet by mouth 2 (two) times daily. [facility] hydrOXYzine 25 mg tablet 0 02-01 00:00: 00 Yes [id number] 25mg Take 1 tablet by mouth every 6 (six) hours as needed for Anxiety. [facility] predniSONE 10 mg tablet 02-01 00:00: 00 Yes [id number] Take 40 mg po qd x 3d, then 30 mg qd x 3d, 20 mg qd x 3d, 10 mg qd x 3d, 5 mg qd x 3d [facility] lactobacill us acidophilus 25 million cell -100 mg captab 02-01 00:00: 00 Yes [id number] 1{tbl} Take 1 tablet by mouth 2 (two) times daily. [facility] hydrOXYzine 25 mg tablet 02-01 00:00: 00 Yes [id number] 25mg Take 1 tablet by mouth every 6 (six) hours as needed for Anxiety. [facility] predniSONE 10 mg tablet 02-01 00:00: 00 Yes [id number] Take 40 mg po qd x 3d, then 30 mg qd x 3d, 20 mg qd x 3d, 10 mg qd x 3d, 5 mg qd x 3d [facility] lactobacill us acidophilus 25 million cell -100 mg captab 02-01 00:00: 00 Yes [id number] 1{tbl} Take 1 tablet by mouth 2 (two) times daily. [facility] hydrOXYzine 25 mg tablet 02-01 00:00: 00 Yes [id number] 25mg Take 1 tablet by mouth every 6 (six) hours as needed for Anxiety. [facility] predniSONE 10 mg tablet 02-01 00:00: 00 Yes [id number] Take 40 mg po qd x 3d, then 30 mg qd x 3d, 20 mg qd x 3d, 10 mg qd x 3d, 5 mg qd x 3d [facility] lactobacill us acidophilus 25 million cell -100 mg captab 02-01 00:00: 00 Yes [id number] 1{tbl} Take 1 tablet by mouth 2 (two) times daily. [facility] hydrOXYzine 25 mg tablet 02-01 00:00: 00 Yes [id number] 25mg Take 1 tablet by mouth every 6 (six) hours as needed for Anxiety. [facility] predniSONE 10 mg tablet 02-01 00:00: 00 Yes [id number] Take 40 mg po qd x 3d, then 30 mg qd x 3d, 20 mg qd x 3d, 10 mg qd x 3d, 5 mg qd x 3d [facility] lactobacill us acidophilus 25 million cell -100 mg captab 02-01 00:00: 00 02-28 00:00 :00 No [id number] 1{tbl} Take 1 tablet by mouth 2 (two) times daily. [facility] hydrOXYzine 25 mg tablet 02-01 00:00: 02-28 00:00 :00 No [id number] 25mg Take 1 tablet by mouth every 6 (six) hours as needed for Anxiety. [facility] predniSONE 10 mg tablet 02-01 00:00: 00 02-28 00:00 :00 No [id number] Take 40 mg po qd x 3d, then 30 mg qd x 3d, 20 mg qd x 3d, 10 mg qd x 3d, 5 mg qd x 3d [facility] lactobacill us acidophilus 25 million cell -100 mg captab 02-01 00:00: 00 02-28 00:00 :00 No [id number] 1{tbl} Take 1 tablet by mouth 2 (two) times daily. [facility] hydrOXYzine 25 mg tablet 02-01 00:00: 00 02-28 00:00 :00 No [id number] 25mg Take 1 tablet by mouth every 6 (six) hours as needed for Anxiety. [facility] predniSONE 10 mg tablet 02-01 00:00: 02-28 00:00 :00 No [id number] Take 40 mg po qd x 3d, then 30 mg qd x 3d, 20 mg qd x 3d, 10 mg qd x 3d, 5 mg qd x 3d [facility] doxycycline hyclate 100 mg capsule 2019-0 5-12 00:00: 02-11 00:00 :00 No [id number] 100mg Take 1 capsule by mouth every 12 (twelve) hours for 7 days. [facility] doxycycline hyclate 100 mg capsule 2019-0 5-12 00:00: 02-09 04:59 :00 No [id number] 100mg Take 1 capsule by mouth every 12 (twelve) hours for 7 days. [facility] doxycycline hyclate 100 mg capsule 2019-0 5-12 00:00: 00 02-09 04:59 :00 No [id number] 100mg Take 1 capsule by mouth every 12 (twelve) hours for 7 days. [facility] doxycycline hyclate 100 mg capsule 2019-0 5-12 00:00: 02-09 04:59 :00 No [id number] 100mg Take 1 capsule by mouth every 12 (twelve) hours for 7 days. [facility] doxycycline hyclate 100 mg capsule 2019-0 5-12 00:00: 02-09 04:59 :00 No [id number] 100mg Take 1 capsule by mouth every 12 (twelve) hours for 7 days. [facility] doxycycline hyclate 100 mg capsule 2019-0 5-12 00:00: 00 02-09 04:59 :00 No [id number] 100mg Take 1 capsule by mouth every 12 (twelve) hours for 7 days. [facility] doxycycline hyclate 100 mg capsule 2019-0 5-12 00:00: 00 02-09 04:59 :00 No [id number] 100mg Take 1 capsule by mouth every 12 (twelve) hours for 7 days. [facility] doxycycline hyclate 100 mg capsule 2020-0 5-12 00:00: 00 02-09 04:59 :00 No [id number] 100mg Take 1 capsule by mouth every 12 (twelve) hours for 7 days. [facility] doxycycline hyclate (Vibramycin ) capsule 100 mg 01-31 17:00: 00 Yes 100mg 100 mg, Oral, Q12H, First dose on 02/01/20 at 1200, Until Discontinu ed, GRICEL
Re ason for Anti-Infec tive: Empiric Therapy for Suspected Infection< br>Empiric Therapy Site: Respirator y
Durat ion of therapy: 7 days [facility] traMADol (ULTRAM) tablet 50 mg 01-30 21:02: 59 Yes 50mg 50 mg, Oral, Q8HPRN, Starting [place] 01/31/20 at 1602, Until Discontinu ed, Routine, Pain (scale 4-6) [facility] methylPREDN ISolone sod succ (SOLU-MEDRO L (PF)) injection 40 mg 01-30 13:00: 00 01-31 16:47 :12 No 40mg 40 mg, Slow IV Push, BID, First dose on Sat01/31/20 at 0800, Until Discontinu ed, Routine [facility] furosemide (LASIX) injection 20 mg 01-30 00:30: 00 01-30 01:01 :00 No 20mg 20 mg, Slow IV Push, ONCE, 1 dose, 01/30/20 at 1930, Routine [facility] methylPREDN ISolone sod succ (SOLU-MEDRO L (PF)) injection 40 mg 01-28 22:00: 00 01-29 23:13 :51 No 40mg 40 mg, Slow IV Push, Q6H, First dose on Sat01/29/20 at 1700, Until Discontinu ed, Routine [facility] LORazepam (ATIVAN) injection 0.25 mg 01-28 20:49: 07 Yes .25mg 0.25 mg, Slow IV Push, TIDPRN, Starting Sat01/29/20 at 1549, Until Discontinu ed, Routine, Anxiety [facility] azithromyci n (ZITHROMAX) 500 mg in NaCl 0.9% (NS) 250 mL VIAL-MATE IV piggyback 01-28 17:30: 00 2020- 05-11 16:47 :12 No 500mg 500 mg, IV Piggyback, Q24H ABX, 7 doses, First dose on Sat01/29/20 at 1230, Last dose on Sat02/04/20 at 1230, 250 mL
Reas on for Anti-Infec tive: Empiric Therapy for Suspected Infection< br>Empi david Therapy Site: Respirator y
Durat ion of therapy: 7 days [facility] ipratropium (ATROVENT) 0.02 % nebulizer solution 0.5 mg 01-28 17:00: 00 Yes .5mg 0.5 mg, Inhalation , Q4H, First dose on Sat01/29/20 at 1200, Until Discontinu ed, Routine [facility] levalbutero l (XOPENEX) nebulizer solution 1.25 mg 01-28 17:00: 00 Yes 1.25mg 1.25 mg, Inhalation , Q4H, First dose on Sat01/29/20 at 1200, Until Discontinu ed, Routine
Approved by: [employer] PROVIDER [facility] lactobacill us acidophilus (ACIDOPHILL US) 25 million cell -100 mg captab 1 tablet 01-28 16:30: 00 Yes 1{tbl} 1 tablet, Oral, BID, First dose on Sat01/29/20 at 1130, Until Discontinu ed, Routine [facility] sodium chloride 7% (HYPER-MEDARDO) nebulizer solution 4 mL 01-28 16:30: 00 01-29 23:13 :51 No 4mL 4 mL, Inhalation , DAILY, First dose on Sat01/29/20 at 1130, Until Discontinu ed, Routine [facility] enoxaparin (LOVENOX) injection 40 mg 01-28 14:00: 00 Yes 40mg 40 mg, Subcutaneo us, DAILY, First dose on Sat01/29/20 at 0900, Until Discontinu ed, Routine [facility] budesonide (PULMICORT RESPULE) nebulizer solution 0.5 mg 01-28 13:00: 00 Yes .5mg 0.5 mg, Inhalation , BID, First dose on Sat01/29/20 at 0800, Until Discontinu ed, Routine
[employer] member approving Restricted medication : BARBARA BARLOW [facility] fluticasone propion-medardo meterol (ADVAIR) 250-50 mcg/dose inhalation disk 1 Puff 01-28 13:00: 00 01-29 23:13 :56 No 1{puff} 1 Puff, Inhalation , Q12H, First dose on Sat01/29/20 at 0800, Until Discontinu ed
Use approved by (Faculty and pager): [facility] PROVID[facility] ipratropium (ATROVENT) 0.02 % nebulizer solution 0.5 mg 01-28 13:00: 00 01-28 16:21 :52 No .5mg 0.5 mg, Inhalation , TID, First dose on Sat01/29/20 at 0800, Until Discontinu ed, Routine [facility] levalbutero l (XOPENEX) nebulizer solution 1.25 mg 01-28 13:00: 01-28 16:21 :52 No 1.25mg 1.25 mg, Inhalation , TID, First dose on Sat01/29/20 at 0800, Until Discontinu ed, Routine
Approved by: [facility] PROVID[facility] nicotine (NICODERM) 14 mg/24 hr patch 1 Patch 01-28 11:45: 00 Yes 1{patch } 1 Patch, Topical, Administer over 24 Hours, Q24H, First dose on Sat01/29/20 at 0645, Until Discontinu ed, Routine [facility] methylpredn isolone sod succ (SOLU-MEDRO L) injection 125 mg 01-28 10:30: 00 01-28 11:23 :00 No 125mg 125 mg, Slow IV Push, ONCE NOW, 1 dose, Sat01/29/20 at 0530, Routine [facility] levalbutero l (XOPENEX) nebulizer solution 1.25 mg 01-28 09:29: 53 Yes 1.25mg 1.25 mg, Inhalation , TIDPRN, Starting Sat01/29/20 at 0429, Until Discontinu ed, Routine, Wheezing, Shortness of Breath
Approved by: [employer] PROVIDER [facility] ondansetron (ZOFRAN (PF)) injection 4 mg 01-28 08:50: 32 Yes 4mg 4 mg, Slow IV Push, Q6HPRN, Starting Sat01/29/20 at 0350, Until Discontinu ed, Routine, Nausea and Vomiting (N/V) [facility] acetaminoph en (TYLENOL) tablet 650 mg 01-28 08:50: 13 Yes 650mg 650 mg, Oral, Q6HPRN, Starting Sat01/29/20 at 0350, Until Discontinu ed, Routine, Pain (scale 1-3) [facility] magnesium sulfate in water 2 gram/50 mL (4 %) infusion 2 g 01-28 07:00: 00 01-28 08:12 :00 No 2g 2 g, IV Piggyback, ONCE, 1 dose, Sat01/29/20 at 0200, STAT [facility] predniSONE 50 mg tablet 01-15 00:00: 00 Yes [id number] 50mg Take 1 tablet by mouth daily. [facility] predniSONE 50 mg tablet 01-15 00:00: 00 Yes [id number] 50mg Take 1 tablet by mouth daily. [facility] predniSONE 50 mg tablet 01-15 00:00: 00 01-28 00:00 :00 No [id number] 50mg Take 1 tablet by mouth daily. [facility] nicotine 14 mg/24 hr patch 12-31 00:00: 00 Yes [id number] 1{patch } Apply 1 Patch to area(s) every 24 (twenty-fo ur) hours. [facility] nicotine 7 mg/24 hr patch 12-31 00:00: 00 Yes [id number] 1{patch } Apply 1 Patch to area(s) every 24 (twenty-fo ur) hours. [facility] CHRIS ASPIRIN 325 mg tablet 12-31 00:00: 00 Yes [id number] 325mg Take 1 tablet by mouth every 6 (six) hours as needed (HEADACHE) . [facility] nicotine 14 mg/24 hr patch 2020-0 4-10 00:00: 00 Yes [id number] 1{patch } Apply 1 Patch to area(s) every 24 (twenty-fo ur) hours. [facility] nicotine 7 mg/24 hr patch 2020-0 4-10 00:00: 00 Yes [id number] 1{patch } Apply 1 Patch to area(s) every 24 (twenty-fo ur) hours. [facility] CHRIS ASPIRIN 325 mg tablet 2019-0 4-10 00:00: 00 Yes [id number] 325mg Take 1 tablet by mouth every 6 (six) hours as needed (HEADACHE) . [facility] nicotine 14 mg/24 hr patch 2020-0 4-10 00:00: 00 Yes [id number] 1{patch } Apply 1 Patch to area(s) every 24 (twenty-fo ur) hours. [facility] nicotine 7 mg/24 hr patch 2019-0 4-10 00:00: 00 Yes [id number] 1{patch } Apply 1 Patch to area(s) every 24 (twenty-fo ur) hours. [facility] CHRIS ASPIRIN 325 mg tablet 2020-0 4-10 00:00: 00 Yes [id number] 325mg Take 1 tablet by mouth every 6 (six) hours as needed (HEADACHE) . [facility] nicotine 14 mg/24 hr patch 2019-0 4-10 00:00: 00 Yes [id number] 1{patch } Apply 1 Patch to area(s) every 24 (twenty-fo ur) hours. [facility] nicotine 7 mg/24 hr patch 2020-0 4-10 00:00: 00 Yes [id number] 1{patch } Apply 1 Patch to area(s) every 24 (twenty-fo ur) hours. [facility] CHRIS ASPIRIN 325 mg tablet 2020-0 4-10 00:00: 00 Yes [id number] 325mg Take 1 tablet by mouth every 6 (six) hours as needed (HEADACHE) . [facility] nicotine 14 mg/24 hr patch 2020-0 4-10 00:00: 00 202008 00:00 :00 No [id number] 1{patch } Apply 1 Patch to area(s) every 24 (twenty-fo ur) hours. [facility] nicotine 7 mg/24 hr patch 12-31 00:00: 00 01-28 00:00 :00 No [id number] 1{patch } Apply 1 Patch to area(s) every 24 (twenty-fo ur) hours. [facility] CHRIS ASPIRIN 325 mg tablet 12-31 00:00: 00 01-28 00:00 :00 No [id number] 325mg Take 1 tablet by mouth every 6 (six) hours as needed (HEADACHE) . [facility] Nebulizer & Compressor For Neb Therese 2019-0 - 00:00: 00 10-14 00:00 :00 No [id number] Nebulizer device and accessorie s. For use every 3 hours as needed for Dx J44.9, R09.02. Length of need: 99 months. [facility] Nebulizer & Compressor For Neb Therese 2019-0 - 00:00: 00 10-14 00:00 :00 No [id number] Nebulizer device and accessorie s. For use every 3 hours as needed for Dx J44.9, R09.02. Length of need: 99 months. [facility] Nebulizer & Compressor For Neb Therese 2019-0 - 00:00: 00 10-14 00:00 :00 No [id number] Nebulizer device and accessorie s. For use every 3 hours as needed for Dx J44.9, R09.02. Length of need: 99 months. [facility] flu vaccine 6 months and up (FLUZONE QUAD (PF)) syringe 0.5 mL 10-07 22:15: 00 10-07 21:18 :00 No .5mL 0.5 mL, Intramuscu lar, ONCE, 1 dose, 10/07/19 at 1615, Routine [facility] predniSONE 10 mg tablet 10-07 00:00: 00 Yes [id number] 4 tablets po daily for 2 days, then 3 tablets po daily for 2 days, then 2 tablets po daily for 2 days, then 1 tablets po daily for 2 days, then stop [facility] levalbutero l 0.63 mg/3 mL nebulizer solution 0 15 00:00: 00 Yes [id number] .63mg Inhale 0.63 mg every 6 (six) hours as needed for Wheezing or Shortness of Breath. [facility] ipratropium 0.02 % nebulizer solution 0 15 00:00: 00 Yes [id number] .5mg Inhale 2.5 mL every 6 (six) hours as needed for Wheezing or Shortness of Breath. [facility] predniSONE 10 mg tablet 0 15 00:00: 00 Yes [id number] 4 tablets po daily for 2 days, then 3 tablets po daily for 2 days, then 2 tablets po daily for 2 days, then 1 tablets po daily for 2 days, then stop [facility] levalbutero l 0.63 mg/3 mL nebulizer solution 10-07 00:00: 00 Yes [id number] .63mg Inhale 0.63 mg every 6 (six) hours as needed for Wheezing or Shortness of Breath. [facility] ipratropium 0.02 % nebulizer solution 0 10-07 00:00: 00 Yes [id number] .5mg Inhale 2.5 mL every 6 (six) hours as needed for Wheezing or Shortness of Breath. [facility] predniSONE 10 mg tablet 0 15 00:00: 00 Yes [id number] 4 tablets po daily for 2 days, then 3 tablets po daily for 2 days, then 2 tablets po daily for 2 days, then 1 tablets po daily for 2 days, then stop [facility] levalbutero l 0.63 mg/3 mL nebulizer solution 0 10-07 00:00: 00 Yes [id number] .63mg Inhale 0.63 mg every 6 (six) hours as needed for Wheezing or Shortness of Breath. [facility] ipratropium 0.02 % nebulizer solution 15 00:00: 00 Yes [id number] .5mg Inhale 2.5 mL every 6 (six) hours as needed for Wheezing or Shortness of Breath. [facility] predniSONE 10 mg tablet 2020-0 1-15 00:00: 00 Yes [id number] 4 tablets po daily for 2 days, then 3 tablets po daily for 2 days, then 2 tablets po daily for 2 days, then 1 tablets po daily for 2 days, then stop [facility] levalbutero l 0.63 mg/3 mL nebulizer solution 2020-0 -15 00:00: 00 Yes [id number] .63mg Inhale 0.63 mg every 6 (six) hours as needed for Wheezing or Shortness of Breath. [facility] ipratropium 0.02 % nebulizer solution 0 -15 00:00: 00 Yes [id number] .5mg Inhale 2.5 mL every 6 (six) hours as needed for Wheezing or Shortness of Breath. [facility] predniSONE 10 mg tablet 2020-0 1-15 00:00: 00 Yes [id number] 4 tablets po daily for 2 days, then 3 tablets po daily for 2 days, then 2 tablets po daily for 2 days, then 1 tablets po daily for 2 days, then stop [facility] levalbutero l 0.63 mg/3 mL nebulizer solution 0 15 00:00: 00 Yes [id number] .63mg Inhale 0.63 mg every 6 (six) hours as needed for Wheezing or Shortness of Breath. [facility] ipratropium 0.02 % nebulizer solution 0 15 00:00: 00 Yes [id number] .5mg Inhale 2.5 mL every 6 (six) hours as needed for Wheezing or Shortness of Breath. [facility] predniSONE 10 mg tablet 2020-0 1-15 00:00: 00 Yes [id number] 4 tablets po daily for 2 days, then 3 tablets po daily for 2 days, then 2 tablets po daily for 2 days, then 1 tablets po daily for 2 days, then stop [facility] levalbutero l 0.63 mg/3 mL nebulizer solution 0 15 00:00: 00 Yes [id number] .63mg Inhale 0.63 mg every 6 (six) hours as needed for Wheezing or Shortness of Breath. [facility] ipratropium 0.02 % nebulizer solution 10-07 00:00: 00 Yes [id number] .5mg Inhale 2.5 mL every 6 (six) hours as needed for Wheezing or Shortness of Breath. [facility] levalbutero l 0.63 mg/3 mL nebulizer solution 10-07 00:00: 00 Yes [id number] .63mg Inhale 0.63 mg every 6 (six) hours as needed for Wheezing or Shortness of Breath. [facility] ipratropium 0.02 % nebulizer solution 10-07 00:00: 00 Yes [id number] .5mg Inhale 2.5 mL every 6 (six) hours as needed for Wheezing or Shortness of Breath. [facility] levalbutero l 0.63 mg/3 mL nebulizer solution 10-07 00:00: 00 Yes [id number] .63mg Inhale 0.63 mg every 6 (six) hours as needed for Wheezing or Shortness of Breath. [facility] ipratropium 0.02 % nebulizer solution 10-07 00:00: 00 Yes [id number] .5mg Inhale 2.5 mL every 6 (six) hours as needed for Wheezing or Shortness of Breath. [facility] levalbutero l 0.63 mg/3 mL nebulizer solution 10-07 00:00: 00 Yes [id number] .63mg Inhale 0.63 mg every 6 (six) hours as needed for Wheezing or Shortness of Breath. [facility] ipratropium 0.02 % nebulizer solution 10-07 00:00: 00 Yes [id number] .5mg Inhale 2.5 mL every 6 (six) hours as needed for Wheezing or Shortness of Breath. [facility] levalbutero l 0.63 mg/3 mL nebulizer solution 10-07 00:00: 00 Yes [id number] .63mg Inhale 0.63 mg every 6 (six) hours as needed for Wheezing or Shortness of Breath. [facility] ipratropium 0.02 % nebulizer solution 10-07 00:00: 00 Yes [id number] .5mg Inhale 2.5 mL every 6 (six) hours as needed for Wheezing or Shortness of Breath. [facility] levalbutero l 0.63 mg/3 mL nebulizer solution 10-07 00:00: 00 Yes [id number] .63mg Inhale 0.63 mg every 6 (six) hours as needed for Wheezing or Shortness of Breath. [facility] ipratropium 0.02 % nebulizer solution 10-07 00:00: 00 Yes [id number] .5mg Inhale 2.5 mL every 6 (six) hours as needed for Wheezing or Shortness of Breath. [facility] levalbutero l 0.63 mg/3 mL nebulizer solution 10-07 00:00: 00 Yes [id number] .63mg Inhale 0.63 mg every 6 (six) hours as needed for Wheezing or Shortness of Breath. [facility] ipratropium 0.02 % nebulizer solution 10-07 00:00: 00 Yes [id number] .5mg Inhale 2.5 mL every 6 (six) hours as needed for Wheezing or Shortness of Breath. [facility] levalbutero l 0.63 mg/3 mL nebulizer solution 10-07 00:00: 00 Yes [id number] .63mg Inhale 0.63 mg every 6 (six) hours as needed for Wheezing or Shortness of Breath. [facility] ipratropium 0.02 % nebulizer solution 10-07 00:00: 00 Yes [id number] .5mg Inhale 2.5 mL every 6 (six) hours as needed for Wheezing or Shortness of Breath. [facility] levalbutero l 0.63 mg/3 mL nebulizer solution 10-07 00:00: 00 Yes [id number] .63mg Inhale 0.63 mg every 6 (six) hours as needed for Wheezing or Shortness of Breath. [facility] ipratropium 0.02 % nebulizer solution 10-07 00:00: 00 Yes [id number] .5mg Inhale 2.5 mL every 6 (six) hours as needed for Wheezing or Shortness of Breath. [facility] levalbutero l 0.63 mg/3 mL nebulizer solution 10-07 00:00: 00 Yes [id number] .63mg Inhale 0.63 mg every 6 (six) hours as needed for Wheezing or Shortness of Breath. [facility] ipratropium 0.02 % nebulizer solution 10-07 00:00: 00 Yes [id number] .5mg Inhale 2.5 mL every 6 (six) hours as needed for Wheezing or Shortness of Breath. [facility] levalbutero l 0.63 mg/3 mL nebulizer solution 10-07 00:00: 00 Yes [id number] .63mg Inhale 0.63 mg every 6 (six) hours as needed for Wheezing or Shortness of Breath. [facility] ipratropium 0.02 % nebulizer solution 10-07 00:00: 00 Yes [id number] .5mg Inhale 2.5 mL every 6 (six) hours as needed for Wheezing or Shortness of Breath. [facility] levalbutero l 0.63 mg/3 mL nebulizer solution 10-07 00:00: 00 Yes [id number] .63mg Inhale 0.63 mg every 6 (six) hours as needed for Wheezing or Shortness of Breath. [facility] ipratropium 0.02 % nebulizer solution 10-07 00:00: 00 Yes [id number] .5mg Inhale 2.5 mL every 6 (six) hours as needed for Wheezing or Shortness of Breath. [facility] levalbutero l 0.63 mg/3 mL nebulizer solution 10-07 00:00: 00 Yes [id number] .63mg Inhale 0.63 mg every 6 (six) hours as needed for Wheezing or Shortness of Breath. [facility] ipratropium 0.02 % nebulizer solution 10-07 00:00: 00 Yes [id number] .5mg Inhale 2.5 mL every 6 (six) hours as needed for Wheezing or Shortness of Breath. [facility] levalbutero l 0.63 mg/3 mL nebulizer solution 10-07 00:00: 00 Yes [id number] .63mg Inhale 0.63 mg every 6 (six) hours as needed for Wheezing or Shortness of Breath. [facility] ipratropium 0.02 % nebulizer solution 10-07 00:00: 00 Yes [id number] .5mg Inhale 2.5 mL every 6 (six) hours as needed for Wheezing or Shortness of Breath. [facility] levalbutero l 0.63 mg/3 mL nebulizer solution 10-07 00:00: 00 Yes [id number] .63mg Inhale 0.63 mg every 6 (six) hours as needed for Wheezing or Shortness of Breath. [facility] ipratropium 0.02 % nebulizer solution 10-07 00:00: 00 Yes [id number] .5mg Inhale 2.5 mL every 6 (six) hours as needed for Wheezing or Shortness of Breath. [facility] levalbutero l 0.63 mg/3 mL nebulizer solution 10-07 00:00: 00 Yes [id number] .63mg Inhale 0.63 mg every 6 (six) hours as needed for Wheezing or Shortness of Breath. [facility] ipratropium 0.02 % nebulizer solution 10-07 00:00: 00 Yes [id number] .5mg Inhale 2.5 mL every 6 (six) hours as needed for Wheezing or Shortness of Breath. [facility] levalbutero l 0.63 mg/3 mL nebulizer solution 10-07 00:00: 00 Yes [id number] .63mg Inhale 0.63 mg every 6 (six) hours as needed for Wheezing or Shortness of Breath. [facility] ipratropium 0.02 % nebulizer solution 10-07 00:00: 00 Yes [id number] .5mg Inhale 2.5 mL every 6 (six) hours as needed for Wheezing or Shortness of Breath. [facility] levalbutero l 0.63 mg/3 mL nebulizer solution 0 15 00:00: 00 Yes [id number] .63mg Inhale 0.63 mg every 6 (six) hours as needed for Wheezing or Shortness of Breath. [facility] ipratropium 0.02 % nebulizer solution 0 10-07 00:00: 00 Yes [id number] .5mg Inhale 2.5 mL every 6 (six) hours as needed for Wheezing or Shortness of Breath. [facility] levalbutero l 0.63 mg/3 mL nebulizer solution 0 10-07 00:00: 00 Yes [id number] .63mg Inhale 0.63 mg every 6 (six) hours as needed for Wheezing or Shortness of Breath. [facility] ipratropium 0.02 % nebulizer solution 0 10-07 00:00: 00 Yes [id number] .5mg Inhale 2.5 mL every 6 (six) hours as needed for Wheezing or Shortness of Breath. [facility] levalbutero l 0.63 mg/3 mL nebulizer solution 0 10-07 00:00: 00 Yes [id number] .63mg Inhale 0.63 mg every 6 (six) hours as needed for Wheezing or Shortness of Breath. [facility] ipratropium 0.02 % nebulizer solution 0 10-07 00:00: 00 Yes [id number] .5mg Inhale 2.5 mL every 6 (six) hours as needed for Wheezing or Shortness of Breath. [facility] levalbutero l 0.63 mg/3 mL nebulizer solution 15 00:00: 00 Yes [id number] .63mg Inhale 0.63 mg every 6 (six) hours as needed for Wheezing or Shortness of Breath. [facility] ipratropium 0.02 % nebulizer solution 15 00:00: 00 Yes [id number] .5mg Inhale 2.5 mL every 6 (six) hours as needed for Wheezing or Shortness of Breath. [facility] predniSONE 10 mg tablet 2020-0 1-15 00:00: 00 Yes [id number] 4 tablets po daily for 2 days, then 3 tablets po daily for 2 days, then 2 tablets po daily for 2 days, then 1 tablets po daily for 2 days, then stop [facility] levalbutero l 0.63 mg/3 mL nebulizer solution 2020-0 -15 00:00: 00 Yes [id number] .63mg Inhale 0.63 mg every 6 (six) hours as needed for Wheezing or Shortness of Breath. [facility] ipratropium 0.02 % nebulizer solution 2020-0 -15 00:00: 00 Yes [id number] .5mg Inhale 2.5 mL every 6 (six) hours as needed for Wheezing or Shortness of Breath. [facility] predniSONE 10 mg tablet 2020-0 1-15 00:00: 00 Yes [id number] 4 tablets po daily for 2 days, then 3 tablets po daily for 2 days, then 2 tablets po daily for 2 days, then 1 tablets po daily for 2 days, then stop [facility] levalbutero l 0.63 mg/3 mL nebulizer solution 0 15 00:00: 00 Yes [id number] .63mg Inhale 0.63 mg every 6 (six) hours as needed for Wheezing or Shortness of Breath. [facility] ipratropium 0.02 % nebulizer solution 0 15 00:00: 00 Yes [id number] .5mg Inhale 2.5 mL every 6 (six) hours as needed for Wheezing or Shortness of Breath. [facility] predniSONE 10 mg tablet 2020-0 1-15 00:00: 00 Yes [id number] 4 tablets po daily for 2 days, then 3 tablets po daily for 2 days, then 2 tablets po daily for 2 days, then 1 tablets po daily for 2 days, then stop [facility] levalbutero l 0.63 mg/3 mL nebulizer solution 20200 -15 00:00: 00 Yes [id number] .63mg Inhale 0.63 mg every 6 (six) hours as needed for Wheezing or Shortness of Breath. [facility] ipratropium 0.02 % nebulizer solution 0 15 00:00: 00 Yes [id number] .5mg Inhale 2.5 mL every 6 (six) hours as needed for Wheezing or Shortness of Breath. [facility] predniSONE 10 mg tablet 15 00:00: 00 Yes [id number] 4 tablets po daily for 2 days, then 3 tablets po daily for 2 days, then 2 tablets po daily for 2 days, then 1 tablets po daily for 2 days, then stop [facility] levalbutero l 0.63 mg/3 mL nebulizer solution 10-07 00:00: 00 Yes [id number] .63mg Inhale 0.63 mg every 6 (six) hours as needed for Wheezing or Shortness of Breath. [facility] ipratropium 0.02 % nebulizer solution 10-07 00:00: 00 Yes [id number] .5mg Inhale 2.5 mL every 6 (six) hours as needed for Wheezing or Shortness of Breath. [facility] predniSONE 10 mg tablet 10-07 00:00: 00 Yes [id number] 4 tablets po daily for 2 days, then 3 tablets po daily for 2 days, then 2 tablets po daily for 2 days, then 1 tablets po daily for 2 days, then stop [facility] levalbutero l 0.63 mg/3 mL nebulizer solution 10-07 00:00: 00 Yes [id number] .63mg Inhale 0.63 mg every 6 (six) hours as needed for Wheezing or Shortness of Breath. [facility] ipratropium 0.02 % nebulizer solution 10-07 00:00: 00 Yes [id number] .5mg Inhale 2.5 mL every 6 (six) hours as needed for Wheezing or Shortness of Breath. [facility] predniSONE 10 mg tablet 15 00:00: 00 Yes [id number] 4 tablets po daily for 2 days, then 3 tablets po daily for 2 days, then 2 tablets po daily for 2 days, then 1 tablets po daily for 2 days, then stop [facility] levalbutero l 0.63 mg/3 mL nebulizer solution 10-07 00:00: 00 Yes [id number] .63mg Inhale 0.63 mg every 6 (six) hours as needed for Wheezing or Shortness of Breath. [facility] ipratropium 0.02 % nebulizer solution 10-07 00:00: 00 Yes [id number] .5mg Inhale 2.5 mL every 6 (six) hours as needed for Wheezing or Shortness of Breath. [facility] predniSONE 10 mg tablet 10-07 00:00: 00 Yes [id number] 4 tablets po daily for 2 days, then 3 tablets po daily for 2 days, then 2 tablets po daily for 2 days, then 1 tablets po daily for 2 days, then stop [facility] levalbutero l 0.63 mg/3 mL nebulizer solution 10-07 00:00: 00 Yes [id number] .63mg Inhale 0.63 mg every 6 (six) hours as needed for Wheezing or Shortness of Breath. [facility] ipratropium 0.02 % nebulizer solution 10-07 00:00: 00 Yes [id number] .5mg Inhale 2.5 mL every 6 (six) hours as needed for Wheezing or Shortness of Breath. [facility] predniSONE 10 mg tablet 10-07 00:00: 00 Yes [id number] 4 tablets po daily for 2 days, then 3 tablets po daily for 2 days, then 2 tablets po daily for 2 days, then 1 tablets po daily for 2 days, then stop [facility] levalbutero l 0.63 mg/3 mL nebulizer solution 10-07 00:00: 00 Yes [id number] .63mg Inhale 0.63 mg every 6 (six) hours as needed for Wheezing or Shortness of Breath. [facility] ipratropium 0.02 % nebulizer solution 10-07 00:00: 00 Yes [id number] .5mg Inhale 2.5 mL every 6 (six) hours as needed for Wheezing or Shortness of Breath. [facility] predniSONE 10 mg tablet 10-07 00:00: 00 Yes [id number] 4 tablets po daily for 2 days, then 3 tablets po daily for 2 days, then 2 tablets po daily for 2 days, then 1 tablets po daily for 2 days, then stop [facility] levalbutero l 0.63 mg/3 mL nebulizer solution 10-07 00:00: 00 Yes [id number] .63mg Inhale 0.63 mg every 6 (six) hours as needed for Wheezing or Shortness of Breath. [facility] ipratropium 0.02 % nebulizer solution 10-07 00:00: 00 Yes [id number] .5mg Inhale 2.5 mL every 6 (six) hours as needed for Wheezing or Shortness of Breath. [facility] predniSONE 10 mg tablet 10-07 00:00: 00 Yes [id number] tablets po daily for 2 days, then 3 tablets po daily for 2 days, then 2 tablets po daily for 2 days, then 1 tablets po daily for 2 days, then stop [facility] levalbutero l 0.63 mg/3 mL nebulizer solution 10-07 00:00: 00 Yes [id number] .63mg Inhale 0.63 mg every 6 (six) hours as needed for Wheezing or Shortness of Breath. [facility] ipratropium 0.02 % nebulizer solution 10-07 00:00: 00 Yes [id number] .5mg Inhale 2.5 mL every 6 (six) hours as needed for Wheezing or Shortness of Breath. [facility] predniSONE 10 mg tablet 10-07 00:00: 00 Yes [id number] tablets po daily for 2 days, then 3 tablets po daily for 2 days, then 2 tablets po daily for 2 days, then 1 tablets po daily for 2 days, then stop [facility] levalbutero l 0.63 mg/3 mL nebulizer solution 10-07 00:00: 00 Yes [id number] .63mg Inhale 0.63 mg every 6 (six) hours as needed for Wheezing or Shortness of Breath. [facility] ipratropium 0.02 % nebulizer solution 10-07 00:00: 00 Yes [id number] .5mg Inhale 2.5 mL every 6 (six) hours as needed for Wheezing or Shortness of Breath. [facility] predniSONE 10 mg tablet 10-07 00:00: 00 Yes [id number] tablets po daily for 2 days, then 3 tablets po daily for 2 days, then 2 tablets po daily for 2 days, then 1 tablets po daily for 2 days, then stop [facility] levalbutero l 0.63 mg/3 mL nebulizer solution 10-07 00:00: 00 Yes [id number] .63mg Inhale 0.63 mg every 6 (six) hours as needed for Wheezing or Shortness of Breath. [facility] ipratropium 0.02 % nebulizer solution 10-07 00:00: 00 Yes [id number] .5mg Inhale 2.5 mL every 6 (six) hours as needed for Wheezing or Shortness of Breath. [facility] predniSONE 10 mg tablet 10-07 00:00: 00 Yes [id number] 4 tablets po daily for 2 days, then 3 tablets po daily for 2 days, then 2 tablets po daily for 2 days, then 1 tablets po daily for 2 days, then stop [facility] levalbutero l 0.63 mg/3 mL nebulizer solution 10-07 00:00: 00 Yes [id number] .63mg Inhale 0.63 mg every 6 (six) hours as needed for Wheezing or Shortness of Breath. [facility] ipratropium 0.02 % nebulizer solution 10-07 00:00: 00 Yes [id number] .5mg Inhale 2.5 mL every 6 (six) hours as needed for Wheezing or Shortness of Breath. [facility] predniSONE 10 mg tablet 10-07 00:00: 00 Yes [id number] 4 tablets po daily for 2 days, then 3 tablets po daily for 2 days, then 2 tablets po daily for 2 days, then 1 tablets po daily for 2 days, then stop [facility] levalbutero l 0.63 mg/3 mL nebulizer solution 10-07 00:00: 00 Yes [id number] .63mg Inhale 0.63 mg every 6 (six) hours as needed for Wheezing or Shortness of Breath. [facility] ipratropium 0.02 % nebulizer solution 10-07 00:00: 00 Yes [id number] .5mg Inhale 2.5 mL every 6 (six) hours as needed for Wheezing or Shortness of Breath. [facility] predniSONE 10 mg tablet 10-07 00:00: 00 Yes [id number] tablets po daily for 2 days, then 3 tablets po daily for 2 days, then 2 tablets po daily for 2 days, then 1 tablets po daily for 2 days, then stop [facility] levalbutero l 0.63 mg/3 mL nebulizer solution 10-07 00:00: 00 Yes [id number] .63mg Inhale 0.63 mg every 6 (six) hours as needed for Wheezing or Shortness of Breath. [facility] ipratropium 0.02 % nebulizer solution 10-07 00:00: 00 Yes [id number] .5mg Inhale 2.5 mL every 6 (six) hours as needed for Wheezing or Shortness of Breath. [facility] predniSONE 10 mg tablet 10-07 00:00: 00 Yes [id number] 4 tablets po daily for 2 days, then 3 tablets po daily for 2 days, then 2 tablets po daily for 2 days, then 1 tablets po daily for 2 days, then stop [facility] levalbutero l 0.63 mg/3 mL nebulizer solution 10-07 00:00: 00 Yes [id number] .63mg Inhale 0.63 mg every 6 (six) hours as needed for Wheezing or Shortness of Breath. [facility] ipratropium 0.02 % nebulizer solution 10-07 00:00: 00 Yes [id number] .5mg Inhale 2.5 mL every 6 (six) hours as needed for Wheezing or Shortness of Breath. [facility] predniSONE 10 mg tablet 10-07 00:00: 00 Yes [id number] 4 tablets po daily for 2 days, then 3 tablets po daily for 2 days, then 2 tablets po daily for 2 days, then 1 tablets po daily for 2 days, then stop [facility] levalbutero l 0.63 mg/3 mL nebulizer solution 10-07 00:00: 00 Yes [id number] .63mg Inhale 0.63 mg every 6 (six) hours as needed for Wheezing or Shortness of Breath. [facility] ipratropium 0.02 % nebulizer solution 10-07 00:00: 00 Yes [id number] .5mg Inhale 2.5 mL every 6 (six) hours as needed for Wheezing or Shortness of Breath. [facility] predniSONE 10 mg tablet 10-07 00:00: 00 Yes [id number] 4 tablets po daily for 2 days, then 3 tablets po daily for 2 days, then 2 tablets po daily for 2 days, then 1 tablets po daily for 2 days, then stop [facility] levalbutero l 0.63 mg/3 mL nebulizer solution 10-07 00:00: 00 Yes [id number] .63mg Inhale 0.63 mg every 6 (six) hours as needed for Wheezing or Shortness of Breath. [facility] ipratropium 0.02 % nebulizer solution 10-07 00:00: 00 Yes [id number] .5mg Inhale 2.5 mL every 6 (six) hours as needed for Wheezing or Shortness of Breath. [facility] predniSONE 10 mg tablet 10-07 00:00: 00 Yes [id number] tablets po daily for 2 days, then 3 tablets po daily for 2 days, then 2 tablets po daily for 2 days, then 1 tablets po daily for 2 days, then stop [facility] levalbutero l 0.63 mg/3 mL nebulizer solution 10-07 00:00: 00 Yes [id number] .63mg Inhale 0.63 mg every 6 (six) hours as needed for Wheezing or Shortness of Breath. [facility] ipratropium 0.02 % nebulizer solution 10-07 00:00: 00 Yes [id number] .5mg Inhale 2.5 mL every 6 (six) hours as needed for Wheezing or Shortness of Breath. [facility] predniSONE 10 mg tablet 10-07 00:00: 00 Yes [id number] 4 tablets po daily for 2 days, then 3 tablets po daily for 2 days, then 2 tablets po daily for 2 days, then 1 tablets po daily for 2 days, then stop [facility] levalbutero l 0.63 mg/3 mL nebulizer solution 10-07 00:00: 00 Yes [id number] .63mg Inhale 0.63 mg every 6 (six) hours as needed for Wheezing or Shortness of Breath. [facility] ipratropium 0.02 % nebulizer solution 10-07 00:00: 00 Yes [id number] .5mg Inhale 2.5 mL every 6 (six) hours as needed for Wheezing or Shortness of Breath. [facility] predniSONE 10 mg tablet 10-07 00:00: 00 Yes [id number] 4 tablets po daily for 2 days, then 3 tablets po daily for 2 days, then 2 tablets po daily for 2 days, then 1 tablets po daily for 2 days, then stop [facility] levalbutero l 0.63 mg/3 mL nebulizer solution 10-07 00:00: 00 Yes [id number] .63mg Inhale 0.63 mg every 6 (six) hours as needed for Wheezing or Shortness of Breath. [facility] ipratropium 0.02 % nebulizer solution 10-07 00:00: 00 Yes [id number] .5mg Inhale 2.5 mL every 6 (six) hours as needed for Wheezing or Shortness of Breath. [facility] predniSONE 10 mg tablet 10-07 00:00: 00 Yes [id number] 4 tablets po daily for 2 days, then 3 tablets po daily for 2 days, then 2 tablets po daily for 2 days, then 1 tablets po daily for 2 days, then stop [facility] levalbutero l 0.63 mg/3 mL nebulizer solution 10-07 00:00: 00 Yes [id number] .63mg Inhale 0.63 mg every 6 (six) hours as needed for Wheezing or Shortness of Breath. [facility] ipratropium 0.02 % nebulizer solution 10-07 00:00: 00 Yes [id number] .5mg Inhale 2.5 mL every 6 (six) hours as needed for Wheezing or Shortness of Breath. [facility] predniSONE 10 mg tablet 10-07 00:00: 00 Yes [id number] 4 tablets po daily for 2 days, then 3 tablets po daily for 2 days, then 2 tablets po daily for 2 days, then 1 tablets po daily for 2 days, then stop [facility] levalbutero l 0.63 mg/3 mL nebulizer solution 10-07 00:00: 00 Yes [id number] .63mg Inhale 0.63 mg every 6 (six) hours as needed for Wheezing or Shortness of Breath. [facility] ipratropium 0.02 % nebulizer solution 10-07 00:00: 00 Yes [id number] .5mg Inhale 2.5 mL every 6 (six) hours as needed for Wheezing or Shortness of Breath. [facility] predniSONE 10 mg tablet 10-07 00:00: 00 Yes [id number] 4 tablets po daily for 2 days, then 3 tablets po daily for 2 days, then 2 tablets po daily for 2 days, then 1 tablets po daily for 2 days, then stop [facility] levalbutero l 0.63 mg/3 mL nebulizer solution 10-07 00:00: 00 Yes [id number] .63mg Inhale 0.63 mg every 6 (six) hours as needed for Wheezing or Shortness of Breath. [facility] ipratropium 0.02 % nebulizer solution 10-07 00:00: 00 Yes [id number] .5mg Inhale 2.5 mL every 6 (six) hours as needed for Wheezing or Shortness of Breath. [facility] levalbutero l 0.63 mg/3 mL nebulizer solution 10-07 00:00: 03-01 00:00 :00 No [id number] .63mg Inhale 0.63 mg every 6 (six) hours as needed for Wheezing or Shortness of Breath. [facility] ipratropium 0.02 % nebulizer solution 10-07 00:00: 03-01 00:00 :00 No [id number] .5mg Inhale 2.5 mL every 6 (six) hours as needed for Wheezing or Shortness of Breath. [facility] predniSONE 10 mg tablet 10-07 00:00: 01-28 00:00 :00 No [id number] 4 tablets po daily for 2 days, then 3 tablets po daily for 2 days, then 2 tablets po daily for 2 days, then 1 tablets po daily for 2 days, then stop [facility] FLUoxetine 10 mg capsule 10-07 00:00: 11-07 05:59 :00 No [id number] 10mg Take 1 capsule by mouth daily for 30 days. [facility] FLUoxetine 10 mg capsule 10-07 00:00: 11-07 05:59 :00 No [id number] 10mg Take 1 capsule by mouth daily for 30 days. [facility] FLUoxetine 10 mg capsule 10-07 00:00: 11-07 05:59 :00 No [id number] 10mg Take 1 capsule by mouth daily for 30 days. [facility] FLUoxetine 10 mg capsule 10-07 00:00: 11-07 05:59 :00 No [id number] 10mg Take 1 capsule by mouth daily for 30 days. [facility] FLUoxetine 10 mg capsule 10-07 00:00: 00 11-07 05:59 :00 No [id number] 10mg Take 1 capsule by mouth daily for 30 days. [facility] FLUoxetine 10 mg capsule 10-07 00:00: 11-07 05:59 :00 No [id number] 10mg Take 1 capsule by mouth daily for 30 days. [facility] FLUoxetine 10 mg capsule 10-07 00:00: 11-07 05:59 :00 No [id number] 10mg Take 1 capsule by mouth daily for 30 days. [facility] FLUoxetine 10 mg capsule 2020-0 1-15 00:00: 00 11-07 05:59 :00 No [id number] 10mg Take 1 capsule by mouth daily for 30 days. [facility] FLUoxetine 10 mg capsule 2020-0 1-15 00:00: 00 11-07 05:59 :00 No [id number] 10mg Take 1 capsule by mouth daily for 30 days. [facility] FLUoxetine 10 mg capsule 2019-0 1-15 00:00: 00 11-07 05:59 :00 No [id number] 10mg Take 1 capsule by mouth daily for 30 days. [facility] FLUoxetine 10 mg capsule 2019-0 1-15 00:00: 00 11-07 05:59 :00 No [id number] 10mg Take 1 capsule by mouth daily for 30 days. [facility] FLUoxetine 10 mg capsule 2019-0 1-15 00:00: 00 11-07 05:59 :00 No [id number] 10mg Take 1 capsule by mouth daily for 30 days. [facility] FLUoxetine 10 mg capsule 2019-0 1-15 00:00: 00 11-07 05:59 :00 No [id number] 10mg Take 1 capsule by mouth daily for 30 days. [facility] FLUoxetine 10 mg capsule 2019-0 1-15 00:00: 00 11-07 05:59 :00 No [id number] 10mg Take 1 capsule by mouth daily for 30 days. [facility] FLUoxetine 10 mg capsule 2020-0 1-15 00:00: 00 11-07 05:59 :00 No [id number] 10mg Take 1 capsule by mouth daily for 30 days. [facility] FLUoxetine 10 mg capsule 2020-0 1-15 00:00: 00 11-07 05:59 :00 No [id number] 10mg Take 1 capsule by mouth daily for 30 days. [facility] FLUoxetine 10 mg capsule 2020-0 1-15 00:00: 00 11-07 05:59 :00 No [id number] 10mg Take 1 capsule by mouth daily for 30 days. [facility] FLUoxetine 10 mg capsule 10-07 00:00: 00 11-07 05:59 :00 No [id number] 10mg Take 1 capsule by mouth daily for 30 days. [facility] azithromyci n 250 mg tablet 10-07 00:00: 00 10-11 05:59 :00 No [id number] 250mg Take 1 tablet by mouth daily for 3 days. Take 500 mg day 1, then 250 mg days 2 to 5. [facility] azithromyci n 250 mg tablet 10-07 00:00: 00 10-11 05:59 :00 No [id number] 250mg Take 1 tablet by mouth daily for 3 days. Take 500 mg day 1, then 250 mg days 2 to 5. [facility] predniSONE (DELTASONE) tablet 50 mg 10-06 15:00: 00 Yes 50mg 50 mg, Oral, DAILY, First dose on Sat10/06/19 at 0900, Until Discontinu ed, Routine [facility] budesonide (PULMICORT RESPULE) nebulizer solution 0.5 mg 10-06 14:00: 00 Yes .5mg 0.5 mg, Inhalation , BID, First dose on Sat10/06/19 at 0800, Until Discontinu ed, Routine
[employer] member approving Restricted medication : SANTINO DIOP [facility] nicotine (NICODERM) 21 mg/24 hr patch 1 Patch 10-06 06:00: 00 Yes 1{patch } 1 Patch, Topical, Administer over 24 Hours, Q24H, First dose on Sat10/06/19 at 0000, Until Discontinu ed, Routine [facility] azithromyci n (ZITHROMAX) 500 mg in NaCl 0.9% (NS) 250 mL VIAL-MATE IV piggyback 10-06 06:00: 00 Yes 500mg 500 mg, IV Piggyback, Q24H ABX, First dose on Sat10/06/19 at 0000, Until Discontinu ed, 250 mL
Reas on for Anti-Infec tive: Empiric Therapy for Suspected Infection< br>Empiric Therapy Site: Respirator y
Durat ion of therapy: 7 days [facility] ipratropium (ATROVENT) 0.02 % nebulizer solution 0.5 mg 10-06 06:00: 00 Yes .5mg 0.5 mg, Inhalation , Q4H, First dose on Sat10/06/19 at 0000, Until Discontinu ed, Routine [facility] levalbutero l (XOPENEX) nebulizer solution 0.63 mg 10-06 06:00: 00 Yes .63mg 0.63 mg, Inhalation , Q4H, First dose on Sat10/06/19 at 0000, Until Discontinu ed, Routine
Approved by: [employer] PROVID[employer] [facility] budesonide (PULMICORT RESPULE) nebulizer solution 0.5 mg 10-06 05:00: 00 10-06 13:07 :00 No .5mg 0.5 mg, Inhalation , BID, First dose on Sat10/05/19 at 2300, Until Discontinu ed, Routine
[employer] member approving Restricted medication : [facility] ondansetron (ZOFRAN (PF)) injection 4 mg 10-06 04:58: 15 Yes 4mg 4 mg, Slow IV Push, Q6HPRN, Starting Sat10/05/19 at 2258, Until Discontinu ed, Routine, Nausea and Vomiting (N/V) [facility] ipratropium -albuterol (DUONEB) 0.5 mg-3 mg(2.5 mg base)/3 mL nebulizer solution 3 mL 10-06 02:15: 00 10-06 01:27 :00 No 3mL 3 mL, Inhalation , ONCE, 1 dose, Sat10/05/19 at 2015, [facility] methylpredn isolone sod succ (SOLU-MEDRO L) injection 125 mg 10-06 02:15: 00 10-06 01:20 :00 No 125mg 125 mg, Slow IV Push, ONCE NOW, 1 dose, Sat10/05/19 at 2015, [facility] ipratropium -albuterol (DUONEB) 0.5 mg-3 mg(2.5 mg base)/3 mL nebulizer solution 3 mL 10-06 02:15: 00 10-06 01:27 :00 No 3mL 3 mL, Inhalation , ONCE, 1 dose, 10/05/19 at 2015, [facility] PROAIR HFA 90 mcg/actuati on inhaler 2018-09 00:00: 00 Yes [id number] 2{puff} Inhale 2 Puffs every 6 (six) hours as needed for Wheezing or Shortness of Breath. [facility] PROAIR HFA 90 mcg/actuati on inhaler 2018-09 00:00: 00 10-07 00:00 :00 No [id number] 2{puff} Inhale 2 Puffs every 6 (six) hours as needed for Wheezing or Shortness of Breath. [facility] budesonide 0.5 mg/2 mL nebulizer solution 2018-09 00:00: 00 Yes [id number] .5mg Inhale 2 mL 2 (two) times daily. [facility] budesonide 0.5 mg/2 mL nebulizer solution 2018-09 00:00: 00 Yes [id number] .5mg Inhale 2 mL 2 (two) times daily. [facility] budesonide 0.5 mg/2 mL nebulizer solution 2018-09 00:00: 00 Yes [id number] .5mg Inhale 2 mL 2 (two) times daily. [facility] budesonide 0.5 mg/2 mL nebulizer solution 2018-09 00:00: 00 Yes [id number] .5mg Inhale 2 mL 2 (two) times daily. [facility] budesonide 0.5 mg/2 mL nebulizer solution 2018-09 00:00: 00 Yes [id number] .5mg Inhale 2 mL 2 (two) times daily. [facility] budesonide 0.5 mg/2 mL nebulizer solution 2018-09 00:00: 00 Yes [id number] .5mg Inhale 2 mL 2 (two) times daily. [facility] budesonide 0.5 mg/2 mL nebulizer solution 2018-09 00:00: 00 Yes [id number] .5mg Inhale 2 mL 2 (two) times daily. [facility] budesonide 0.5 mg/2 mL nebulizer solution 2018-09 00:00: 00 Yes [id number] .5mg Inhale 2 mL 2 (two) times daily. [facility] budesonide 0.5 mg/2 mL nebulizer solution 2018-09 00:00: 00 Yes [id number] .5mg Inhale 2 mL 2 (two) times daily. [facility] budesonide 0.5 mg/2 mL nebulizer solution 2018-09 00:00: 00 Yes [id number] .5mg Inhale 2 mL 2 (two) times daily. [facility] 0.5 mg/2 mL nebulizer solution 2018-09 00:00: 00 Yes [id number] .5mg Inhale 2 mL 2 (two) times daily. [facility] bud[facility] 0.5 mg/2 mL nebulizer solution 2018-09 00:00: 00 Yes [id number] .5mg Inhale 2 mL 2 (two) times daily. [facility] bud[facility]ide 0.5 mg/2 mL nebulizer solution 2018-09 00:00: 00 Yes [id number] .5mg Inhale 2 mL 2 (two) times daily. [facility] budesonide 0.5 mg/2 mL nebulizer solution 2018-09 00:00: 00 Yes [id number] .5mg Inhale 2 mL 2 (two) times daily. [facility] budesonide 0.5 mg/2 mL nebulizer solution 2018-09 00:00: 00 Yes [id number] .5mg Inhale 2 mL 2 (two) times daily. [facility] budesonide 0.5 mg/2 mL nebulizer solution 2018-09 00:00: 00 Yes [id number] .5mg Inhale 2 mL 2 (two) times daily. [facility] budesonide 0.5 mg/2 mL nebulizer solution 2018-09 00:00: 00 Yes [id number] .5mg Inhale 2 mL 2 (two) times daily. [facility] budesonide 0.5 mg/2 mL nebulizer solution 2018-09 00:00: 00 Yes [id number] .5mg Inhale 2 mL 2 (two) times daily. [facility] budesonide 0.5 mg/2 mL nebulizer solution 2018-09 00:00: 00 Yes [id number] .5mg Inhale 2 mL 2 (two) times daily. [facility] budesonide 0.5 mg/2 mL nebulizer solution 2018-09 00:00: 00 Yes [id number] .5mg Inhale 2 mL 2 (two) times daily. [facility] 0.5 mg/2 mL nebulizer solution 2018-09 00:00: 00 Yes [id number] .5mg Inhale 2 mL 2 (two) times daily. [facility] bud[facility]ide 0.5 mg/2 mL nebulizer solution 2018-09 00:00: 00 Yes [id number] .5mg Inhale 2 mL 2 (two) times daily. [facility] bud[facility]ide 0.5 mg/2 mL nebulizer solution 2018-09 00:00: 00 Yes [id number] .5mg Inhale 2 mL 2 (two) times daily. [facility] [facility] budesonide 0.5 mg/2 mL nebulizer solution 2018-09 00:00: 00 Yes [id number] .5mg Inhale 2 mL 2 (two) times daily. [facility] budesonide 0.5 mg/2 mL nebulizer solution 2018-09 00:00: 00 Yes [id number] .5mg Inhale 2 mL 2 (two) times daily. [facility] budesonide 0.5 mg/2 mL nebulizer solution 2018-09 00:00: 00 Yes [id number] .5mg Inhale 2 mL 2 (two) times daily. [facility] budesonide 0.5 mg/2 mL nebulizer solution 2018-09 00:00: 00 Yes [id number] .5mg Inhale 2 mL 2 (two) times daily. [facility] budesonide 0.5 mg/2 mL nebulizer solution 2018-09 00:00: 00 Yes [id number] .5mg Inhale 2 mL 2 (two) times daily. [facility] budesonide 0.5 mg/2 mL nebulizer solution 2018-09 00:00: 00 Yes [id number] .5mg Inhale 2 mL 2 (two) times daily. [facility] budesonide 0.5 mg/2 mL nebulizer solution 2018-09 00:00: 00 Yes [id number] .5mg Inhale 2 mL 2 (two) times daily. [facility]/2 mL nebulizer solution 2018-09 00:00: 00 Yes [id number] .5mg Inhale 2 mL 2 (two) times daily. [facility]/2 mL nebulizer solution 2018-09 00:00: 00 Yes [id number] .5mg Inhale 2 mL 2 (two) times daily. [facility]5 [facility]/2 mL nebulizer solution 2018-09 00:00: 00 Yes [id number] .5mg Inhale 2 mL 2 (two) times daily. [facility] budesonide 0.5 mg/2 mL nebulizer solution 2018-09 00:00: 00 Yes [id number] .5mg Inhale 2 mL 2 (two) times daily. [facility] budesonide 0.5 mg/2 mL nebulizer solution 2018-09 00:00: 00 Yes [id number] .5mg Inhale 2 mL 2 (two) times daily. [facility] budesonide 0.5 mg/2 mL nebulizer solution 2018-09 00:00: 00 Yes [id number] .5mg Inhale 2 mL 2 (two) times daily. [facility] budesonide 0.5 mg/2 mL nebulizer solution 2018-09 00:00: 00 Yes [id number] .5mg Inhale 2 mL 2 (two) times daily. [facility] budesonide 0.5 mg/2 mL nebulizer solution 2018-09 00:00: 00 Yes [id number] .5mg Inhale 2 mL 2 (two) times daily. [facility] budesonide 0.5 mg/2 mL nebulizer solution 2018-09 00:00: 00 Yes [id number] .5mg Inhale 2 mL 2 (two) times daily. [facility] budesonide 0.5 mg/2 mL nebulizer solution 2018-09 00:00: 00 Yes [id number] .5mg Inhale 2 mL 2 (two) times daily. [facility] budesonide 0.5 mg/2 mL nebulizer solution 2018-09 00:00: 00 Yes [id number] .5mg Inhale 2 mL 2 (two) times daily. [facility] budesonide 0.5 mg/2 mL nebulizer solution 2018-09 00:00: 00 02-12 00:00 :00 No [id number] .5mg Inhale 2 mL 2 (two) times daily. [facility] fluticasone furoate-telma anterol (BREO ELLIPTA) 200-25 mcg/dose DsDv 06-09 00:00: 00 Yes [id number] 200ug Inhale 200 mcg daily. [facility] fluticasone furoate-telma anterol (BREO ELLIPTA) 200-25 mcg/dose DsDv 06-09 00:00: 00 Yes [id number] 200ug Inhale 200 mcg daily. [facility] fluticasone furoate-telma anterol (BREO ELLIPTA) 200-25 mcg/dose DsDv 06-09 00:00: 00 Yes [id number] 200ug Inhale 200 mcg daily. [facility] fluticasone furoate-telma anterol (BREO ELLIPTA) 200-25 mcg/dose DsDv 06-09 00:00: 00 Yes [id number] 200ug Inhale 200 mcg daily. [facility] fluticasone furoate-telma anterol (BREO ELLIPTA) 200-25 mcg/dose DsDv 06-09 00:00: 00 Yes [id number] 200ug Inhale 200 mcg daily. [facility] fluticasone furoate-telma anterol (BREO ELLIPTA) 200-25 mcg/dose DsDv 06-09 00:00: 00 Yes [id number] 200ug Inhale 200 mcg daily. [facility] fluticasone furoate-telma anterol (BREO ELLIPTA) 200-25 mcg/dose DsDv 06-09 00:00: 00 Yes [id number] 200ug Inhale 200 mcg daily. [facility] fluticasone furoate-telma anterol (BREO ELLIPTA) 200-25 mcg/dose DsDv 06-09 00:00: 00 Yes [id number] 200ug Inhale 200 mcg daily. [facility] fluticasone furoate-telma anterol (BREO ELLIPTA) 200-25 mcg/dose DsDv 06-09 00:00: 00 Yes [id number] 200ug Inhale 200 mcg daily. [facility] fluticasone furoate-telma anterol (BREO ELLIPTA) 200-25 mcg/dose DsDv 06-09 00:00: 00 Yes [id number] 200ug Inhale 200 mcg daily. [facility] fluticasone furoate-telma anterol (BREO ELLIPTA) 200-25 mcg/dose DsDv 06-09 00:00: 00 Yes [id number] 200ug Inhale 200 mcg daily. [facility] fluticasone furoate-telma anterol (BREO ELLIPTA) 200-25 mcg/dose DsDv 06-09 00:00: 00 Yes [id number] 200ug Inhale 200 mcg daily. [facility] fluticasone furoate-telma anterol (BREO ELLIPTA) 200-25 mcg/dose DsDv 06-09 00:00: 00 Yes [id number] 200ug Inhale 200 mcg daily. [facility] fluticasone furoate-telma anterol (BREO ELLIPTA) 200-25 mcg/dose DsDv 06-09 00:00: 00 Yes [id number] 200ug Inhale 200 mcg daily. [facility] fluticasone furoate-telma anterol (BREO ELLIPTA) 200-25 mcg/dose DsDv 06-09 00:00: 00 Yes [id number] 200ug Inhale 200 mcg daily. [facility] fluticasone furoate-telma anterol (BREO ELLIPTA) 200-25 mcg/dose DsDv 06-09 00:00: 00 Yes [id number] 200ug Inhale 200 mcg daily. [facility] fluticasone furoate-telma anterol (BREO ELLIPTA) 200-25 mcg/dose DsDv 06-09 00:00: 00 Yes [id number] 200ug Inhale 200 mcg daily. [facility] fluticasone furoate-telma anterol (BREO ELLIPTA) 200-25 mcg/dose DsDv 06-09 00:00: 00 Yes [id number] 200ug Inhale 200 mcg daily. [facility] fluticasone furoate-telma anterol (BREO ELLIPTA) 200-25 mcg/dose DsDv 06-09 00:00: 00 Yes [id number] 200ug Inhale 200 mcg daily. [facility] fluticasone furoate-telma anterol (BREO ELLIPTA) 200-25 mcg/dose DsDv 06-09 00:00: 00 Yes [id number] 200ug Inhale 200 mcg daily. [facility] fluticasone furoate-telma anterol (BREO ELLIPTA) 200-25 mcg/dose DsDv 06-09 00:00: 00 Yes [id number] 200ug Inhale 200 mcg daily. [facility] fluticasone furoate-telma anterol (BREO ELLIPTA) 200-25 mcg/dose DsDv 06-09 00:00: 00 Yes [id number] 200ug Inhale 200 mcg daily. [facility] fluticasone furoate-telma anterol (BREO ELLIPTA) 200-25 mcg/dose DsDv 06-09 00:00: 00 Yes [id number] 200ug Inhale 200 mcg daily. [facility] fluticasone furoate-telma anterol (BREO ELLIPTA) 200-25 mcg/dose DsDv 06-09 00:00: 00 Yes [id number] 200ug Inhale 200 mcg daily. [facility] fluticasone furoate-telma anterol (BREO ELLIPTA) 200-25 mcg/dose DsDv 06-09 00:00: 00 Yes [id number] 200ug Inhale 200 mcg daily. [facility] fluticasone furoate-telma anterol (BREO ELLIPTA) 200-25 mcg/dose DsDv 06-09 00:00: 00 Yes [id number] 200ug Inhale 200 mcg daily. [facility] fluticasone furoate-telma anterol (BREO ELLIPTA) 200-25 mcg/dose DsDv 06-09 00:00: 00 Yes [id number] 200ug Inhale 200 mcg daily. [facility] tiotropium (SPIRIVA WITH HANDIHALER) 18 mcg inhalation 06-09 00:00: 00 Yes [id number] 18ug Inhale 1 capsule daily. [facility] albuterol 90 mcg/actuati on inhaler 06-09 00:00: 00 Yes [id number] 2{puff} Inhale 2 Puffs every 4 (four) hours as needed for Wheezing or Shortness of Breath. [facility] albuterol 2.5 mg /3 mL (0.083 %) nebulizer solution 06-09 00:00: 00 Yes [id number] 2.5mg Inhale 3 mL every 4 (four) hours. [facility] FLUoxetine 10 mg capsule 06-09 00:00: 00 Yes [id number] 10mg Take 1 capsule by mouth daily. [facility] fluticasone furoate-telma anterol (BREO ELLIPTA) 200-25 mcg/dose DsDv 06-09 00:00: 00 Yes [id number] 200ug Inhale 200 mcg daily. [facility] tiotropium (SPIRIVA WITH HANDIHALER) 18 mcg inhalation 06-09 00:00: 00 Yes [id number] 18ug Inhale 1 capsule daily. [facility]actu[facility] inhaler 06-09 00:00: 00 Yes [id number] 2{puff} Inhale 2 Puffs every 4 (four) hours as needed for Wheezing or Shortness of Breath. [facility] albuterol 2.5 mg /3 mL (0.083 %) nebulizer solution 06-09 00:00: 00 Yes [id number] 2.5mg Inhale 3 mL every 4 (four) hours. [facility] FLUoxetine 10 mg capsule 06-09 00:00: 00 Yes [id number] 10mg Take 1 capsule by mouth daily. [facility] fluticasone furoate-telma anterol (BREO ELLIPTA) 200-25 mcg/dose DsDv 06-09 00:00: 00 Yes [id number] 200ug Inhale 200 mcg daily. [facility] tiotropium (SPIRIVA WITH HANDIHALER) 18 mcg inhalation 06-09 00:00: 00 Yes [id number] 18ug Inhale 1 capsule daily. [facility] albuterol 90 mcg/actuati on inhaler 06-09 00:00: 00 Yes [id number] 2{puff} Inhale 2 Puffs every 4 (four) hours as needed for Wheezing or Shortness of Breath. [facility] albuterol 2.5 mg /3 mL (0.083 %) nebulizer solution 06-09 00:00: 00 Yes [id number] 2.5mg Inhale 3 mL every 4 (four) hours. [facility] FLUoxetine 10 mg capsule 06-09 00:00: 00 Yes [id number] 10mg Take 1 capsule by mouth daily. [facility] fluticasone furoate-telma anterol (BREO ELLIPTA) 200-25 mcg/dose DsDv 06-09 00:00: 00 Yes [id number] 200ug Inhale 200 mcg daily. [facility] tiotropium (SPIRIVA WITH HANDIHALER) 18 mcg inhalation 06-09 00:00: 00 Yes [id number] 18ug Inhale 1 capsule daily. [facility] albuterol 90 mcg/actuati on inhaler 06-09 00:00: 00 Yes [id number] 2{puff} Inhale 2 Puffs every 4 (four) hours as needed for Wheezing or Shortness of Breath. [facility] albuterol 2.5 mg /3 mL (0.083 %) nebulizer solution 06-09 00:00: 00 Yes [id number] 2.5mg Inhale 3 mL every 4 (four) hours. [facility] FLUoxetine 10 mg capsule 06-09 00:00: 00 Yes [id number] 10mg Take 1 capsule by mouth daily. [facility] fluticasone furoate-telma anterol (BREO ELLIPTA) 200-25 mcg/dose DsDv 06-09 00:00: 00 Yes [id number] 200ug Inhale 200 mcg daily. [facility] tiotropium (SPIRIVA WITH HANDIHALER) 18 mcg inhalation 06-09 00:00: 00 Yes [id number] 18ug Inhale 1 capsule daily. [facility] albuterol 2.5 mg /3 mL (0.083 %) nebulizer solution 06-09 00:00: 00 Yes [id number] 2.5mg Inhale 3 mL every 4 (four) hours. [facility] FLUoxetine 10 mg capsule 06-09 00:00: 00 Yes [id number] 10mg Take 1 capsule by mouth daily. [facility] fluticasone furoate-telma anterol (BREO ELLIPTA) 200-25 mcg/dose DsDv 06-09 00:00: 00 Yes [id number] 200ug Inhale 200 mcg daily. [facility] tiotropium (SPIRIVA WITH HANDIHALER) 18 mcg inhalation 06-09 00:00: 00 Yes [id number] 18ug Inhale 1 capsule daily. [facility] fluticasone furoate-telma anterol (BREO ELLIPTA) 200-25 mcg/dose DsDv 06-09 00:00: 00 Yes [id number] 200ug Inhale 200 mcg daily. [facility] tiotropium (SPIRIVA WITH HANDIHALER) 18 mcg inhalation 06-09 00:00: 00 Yes [id number] 18ug Inhale 1 capsule daily. [facility] fluticasone furoate-telma anterol (BREO ELLIPTA) 200-25 mcg/dose DsDv 06-09 00:00: 00 Yes [id number] 200ug Inhale 200 mcg daily. [facility] tiotropium (SPIRIVA WITH HANDIHALER) 18 mcg inhalation 06-09 00:00: 00 Yes [id number] 18ug Inhale 1 capsule daily. [facility] fluticasone furoate-telma anterol (BREO ELLIPTA) 200-25 mcg/dose DsDv 06-09 00:00: 00 Yes [id number] 200ug Inhale 200 mcg daily. [facility] tiotropium (SPIRIVA WITH HANDIHALER) 18 mcg inhalation 06-09 00:00: 00 Yes [id number] 18ug Inhale 1 capsule daily. [facility] fluticasone furoate-telma anterol (BREO ELLIPTA) 200-25 mcg/dose DsDv 06-09 00:00: 00 Yes [id number] 200ug Inhale 200 mcg daily. [facility] tiotropium (SPIRIVA WITH HANDIHALER) 18 mcg inhalation 06-09 00:00: 00 Yes [id number] 18ug Inhale 1 capsule daily. [facility] fluticasone furoate-telma anterol (BREO ELLIPTA) 200-25 mcg/dose DsDv 06-09 00:00: 00 Yes [id number] 200ug Inhale 200 mcg daily. [facility] tiotropium (SPIRIVA WITH HANDIHALER) 18 mcg inhalation 06-09 00:00: 00 Yes [id number] 18ug Inhale 1 capsule daily. [facility] fluticasone furoate-telma anterol (BREO ELLIPTA) 200-25 mcg/dose DsDv 06-09 00:00: 00 Yes [id number] 200ug Inhale 200 mcg daily. [facility] tiotropium (SPIRIVA WITH HANDIHALER) 18 mcg inhalation 06-09 00:00: 00 Yes [id number] 18ug Inhale 1 capsule daily. [facility] fluticasone furoate-telma anterol (BREO ELLIPTA) 200-25 mcg/dose DsDv 06-09 00:00: 00 Yes [id number] 200ug Inhale 200 mcg daily. [facility] tiotropium (SPIRIVA WITH HANDIHALER) 18 mcg inhalation 06-09 00:00: 00 Yes [id number] 18ug Inhale 1 capsule daily. [facility] fluticasone furoate-telma anterol (BREO ELLIPTA) 200-25 mcg/dose DsDv 06-09 00:00: 00 Yes [id number] 200ug Inhale 200 mcg daily. [facility] tiotropium (SPIRIVA WITH HANDIHALER) 18 mcg inhalation 06-09 00:00: 00 Yes [id number] 18ug Inhale 1 capsule daily. [facility] fluticasone furoate-telma anterol (BREO ELLIPTA) 200-25 mcg/dose DsDv 06-09 00:00: 00 Yes [id number] 200ug Inhale 200 mcg daily. [facility] fluticasone furoate-telma anterol (BREO ELLIPTA) 200-25 mcg/dose DsDv 06-09 00:00: 00 Yes [id number] 200ug Inhale 200 mcg daily. [facility] fluticasone furoate-telma anterol (BREO ELLIPTA) 200-25 mcg/dose DsDv 06-09 00:00: 00 Yes [id number] 200ug Inhale 200 mcg daily. [facility] fluticasone furoate-telma anterol (BREO ELLIPTA) 200-25 mcg/dose DsDv 06-09 00:00: 00 Yes [id number] 200ug Inhale 200 mcg daily. [facility] fluticasone furoate-telma anterol (BREO ELLIPTA) 200-25 mcg/dose DsDv 06-09 00:00: 00 Yes [id number] 200ug Inhale 200 mcg daily. [facility] fluticasone furoate-telma anterol (BREO ELLIPTA) 200-25 mcg/dose DsDv 06-09 00:00: 00 Yes [id number] 200ug Inhale 200 mcg daily. [facility] fluticasone furoate-telma anterol (BREO ELLIPTA) 200-25 mcg/dose DsDv 06-09 00:00: 00 Yes [id number] 200ug Inhale 200 mcg daily. [facility] fluticasone furoate-telma anterol (BREO ELLIPTA) 200-25 mcg/dose DsDv 06-09 00:00: 00 Yes [id number] 200ug Inhale 200 mcg daily. [facility] fluticasone furoate-telma anterol (BREO ELLIPTA) 200-25 mcg/dose DsDv 06-09 00:00: 00 Yes [id number] 200ug Inhale 200 mcg daily. [facility] fluticasone furoate-telma anterol (BREO ELLIPTA) 200-25 mcg/dose DsDv 06-09 00:00: 00 Yes [id number] 200ug Inhale 200 mcg daily. [facility] fluticasone furoate-telma anterol (BREO ELLIPTA) 200-25 mcg/dose DsDv 06-09 00:00: 00 Yes [id number] 200ug Inhale 200 mcg daily. [facility] fluticasone furoate-telma anterol (BREO ELLIPTA) 200-25 mcg/dose DsDv 06-09 00:00: 00 Yes [id number] 200ug Inhale 200 mcg daily. [facility] fluticasone furoate-telma anterol (BREO ELLIPTA) 200-25 mcg/dose DsDv 06-09 00:00: 00 Yes [id number] 200ug Inhale 200 mcg daily. [facility] fluticasone furoate-telma anterol (BREO ELLIPTA) 200-25 mcg/dose DsDv 06-09 00:00: 00 Yes [id number] 200ug Inhale 200 mcg daily. [facility] fluticasone furoate-telma anterol (BREO ELLIPTA) 200-25 mcg/dose DsDv 06-09 00:00: 00 Yes [id number] 200ug Inhale 200 mcg daily. [facility] fluticasone furoate-telma anterol (BREO ELLIPTA) 200-25 mcg/dose DsDv 06-09 00:00: 00 03-01 00:00 :00 No [id number] 200ug Inhale 200 mcg daily. [facility] tiotropium (SPIRIVA WITH HANDIHALER) 18 mcg inhalation 06-09 00:00: 00 10-20 00:00 :00 No [id number] 18ug Inhale 1 capsule daily. [facility] tiotropium (SPIRIVA WITH HANDIHALER) 18 mcg inhalation 06-09 00:00: 00 10-20 00:00 :00 No [id number] 18ug Inhale 1 capsule daily. [facility] albuterol 2.5 mg /3 mL (0.083 %) nebulizer solution 06-09 00:00: 00 10-07 00:00 :00 No [id number] 2.5mg Inhale 3 mL every 4 (four) hours. [facility] FLUoxetine 10 mg capsule 06-09 00:00: 00 10-07 00:00 :00 No [id number] 10mg Take 1 capsule by mouth daily. [facility] fluticasone -vilanterol (BREO ELLIPTA) 200-25 mcg/dose DsDv 05-31 00:00: 00 Yes 200ug Inhale 200 mcg daily. [facility] fluticasone -vilanterol (BREO ELLIPTA) 200-25 mcg/dose Dv 05-31 00:00: 00 06-09 00:00 :00 No 200ug Inhale 200 mcg daily. [facility] fluticasone -vilanterol (BREO ELLIPTA) 200-25 mcg/dose DsDv 05-31 00:00: 00 06-09 00:00 :00 No 200ug Inhale 200 mcg daily. [facility] fluticasone -vilanterol (BREO ELLIPTA) 200-25 mcg/dose DsDv 05-31 00:00: 00 06-09 00:00 :00 No 200ug Inhale 200 mcg daily. [facility] calcium-vit cooper D 500 mg(1,250mg) -200 unit per tablet 04-11 00:00: 00 Yes 1{tbl} Take 1 tablet by mouth daily. [facility] Nicotine 21-14-7 mg/24 hr PTDS 04-11 00:00: 00 Yes Use 21 for 30 days and 14 for next 30 days [facility] calcium-vit cooper D 500 mg(1,250mg) -200 unit per tablet 04-11 00:00: 00 Yes 1{tbl} Take 1 tablet by mouth daily. [facility] Nicotine 21-14-7 mg/24 hr PTDS 04-11 00:00: 00 Yes Use 21 for 30 days and 14 for next 30 days [facility] calcium-vit cooper D 500 mg(1,250mg) -200 unit per tablet 04-11 00:00: 00 Yes 1{tbl} Take 1 tablet by mouth daily. [facility] calcium-vit cooper D 500 mg(1,250mg) -200 unit per tablet 04-11 00:00: 00 Yes 1{tbl} Take 1 tablet by mouth daily. [facility] calcium-vit cooper D 500 mg(1,250mg) -200 unit per tablet 04-11 00:00: 00 Yes 1{tbl} Take 1 tablet by mouth daily. [facility] calcium-vit cooper D 500 mg(1,250mg) -200 unit per tablet 04-11 00:00: 00 Yes 1{tbl} Take 1 tablet by mouth daily. [facility] calcium-vit cooper D 500 mg(1,250mg) -200 unit per tablet 04-11 00:00: 00 Yes 1{tbl} Take 1 tablet by mouth daily. [facility] calcium-vit cooper D 500 mg(1,250mg) -200 unit per tablet 04-11 00:00: 00 Yes 1{tbl} Take 1 tablet by mouth daily. [facility] calcium-vit cooper D 500 mg(1,250mg) -200 unit per tablet 04-11 00:00: 00 Yes 1{tbl} Take 1 tablet by mouth daily. [facility] calcium-vit cooper D 500 mg(1,250mg) -200 unit per tablet 04-11 00:00: 00 Yes 1{tbl} Take 1 tablet by mouth daily. [facility] calcium-vit cooper D 500 mg(1,250mg) -200 unit per tablet 04-11 00:00: 00 Yes 1{tbl} Take 1 tablet by mouth daily. [facility] calcium-vit cooper D 500 mg(1,250mg) -200 unit per tablet 04-11 00:00: 00 Yes 1{tbl} Take 1 tablet by mouth daily. [facility] calcium-vit cooper D 500 mg(1,250mg) -200 unit per tablet 04-11 00:00: 00 Yes 1{tbl} Take 1 tablet by mouth daily. [facility] calcium-vit cooper D 500 mg(1,250mg) -200 unit per tablet 04-11 00:00: 00 Yes 1{tbl} Take 1 tablet by mouth daily. [facility] calcium-vit cooper D 500 mg(1,250mg) -200 unit per tablet 04-11 00:00: 00 Yes 1{tbl} Take 1 tablet by mouth daily. [facility] calcium-vit cooper D 500 mg(1,250mg) -200 unit per tablet 04-11 00:00: 00 Yes 1{tbl} Take 1 tablet by mouth daily. [facility] calcium-vit cooper D 500 mg(1,250mg) -200 unit per tablet 04-11 00:00: 00 Yes 1{tbl} Take 1 tablet by mouth daily. [facility] calcium-vit cooper D 500 mg(1,250mg) -200 unit per tablet 04-11 00:00: 00 Yes 1{tbl} Take 1 tablet by mouth daily. [facility] calcium-vit cooper D 500 mg(1,250mg) -200 unit per tablet 04-11 00:00: 00 Yes 1{tbl} Take 1 tablet by mouth daily. [facility] calcium-vit cooper D 500 mg(1,250mg) -200 unit per tablet 04-11 00:00: 00 Yes 1{tbl} Take 1 tablet by mouth daily. [facility] calcium-vit cooper D 500 mg(1,250mg) -200 unit per tablet 04-11 00:00: 00 Yes 1{tbl} Take 1 tablet by mouth daily. [facility] calcium-vit cooper D 500 mg(1,250mg) -200 unit per tablet 04-11 00:00: 00 Yes 1{tbl} Take 1 tablet by mouth daily. [facility] calcium-vit cooper D 500 mg(1,250mg) -200 unit per tablet 04-11 00:00: 00 Yes 1{tbl} Take 1 tablet by mouth daily. [facility] calcium-vit cooper D 500 mg(1,250mg) -200 unit per tablet 04-11 00:00: 00 Yes 1{tbl} Take 1 tablet by mouth daily. [facility] calcium-vit cooper D 500 mg(1,250mg) -200 unit per tablet 04-11 00:00: 00 Yes 1{tbl} Take 1 tablet by mouth daily. [facility] calcium-vit cooper D 500 mg(1,250mg) -200 unit per tablet 04-11 00:00: 00 Yes 1{tbl} Take 1 tablet by mouth daily. [facility] calcium-vit cooper D 500 mg(1,250mg) -200 unit per tablet 04-11 00:00: 00 Yes 1{tbl} Take 1 tablet by mouth daily. [facility] calcium-vit cooper D 500 mg(1,250mg) -200 unit per tablet 04-11 00:00: 00 Yes 1{tbl} Take 1 tablet by mouth daily. [facility] calcium-vit cooper D 500 mg(1,250mg) -200 unit per tablet 04-11 00:00: 00 Yes 1{tbl} Take 1 tablet by mouth daily. [facility] calcium-vit cooper D 500 mg(1,250mg) -200 unit per tablet 04-11 00:00: 00 Yes 1{tbl} Take 1 tablet by mouth daily. [facility] calcium-vit cooper D 500 mg(1,250mg) -200 unit per tablet 04-11 00:00: 00 Yes 1{tbl} Take 1 tablet by mouth daily. [facility] calcium-vit cooper D 500 mg(1,250mg) -200 unit per tablet 04-11 00:00: 00 Yes 1{tbl} Take 1 tablet by mouth daily. [facility] calcium-vit cooper D 500 mg(1,250mg) -200 unit per tablet 04-11 00:00: 00 Yes 1{tbl} Take 1 tablet by mouth daily. [facility] calcium-vit cooper D 500 mg(1,250mg) -200 unit per tablet 04-11 00:00: 00 Yes 1{tbl} Take 1 tablet by mouth daily. [facility] calcium-vit cooper D 500 mg(1,250mg) -200 unit per tablet 04-11 00:00: 00 Yes 1{tbl} Take 1 tablet by mouth daily. [facility] calcium-vit cooper D 500 mg(1,250mg) -200 unit per tablet 04-11 00:00: 00 Yes 1{tbl} Take 1 tablet by mouth daily. [facility] calcium-vit cooper D 500 mg(1,250mg) -200 unit per tablet 04-11 00:00: 00 Yes 1{tbl} Take 1 tablet by mouth daily. [facility] mg(1,250mg) -200 unit per tablet 04-11 00:00: 00 Yes 1{tbl} Take 1 tablet by mouth daily. [facility] calcium-vit cooper D 500 mg(1,250mg) -200 unit per tablet 04-11 00:00: 00 Yes 1{tbl} Take 1 tablet by mouth daily. [facility] calcium-vit cooper D 500 mg(1,250mg) -200 unit per tablet 04-11 00:00: 00 Yes 1{tbl} Take 1 tablet by mouth daily. [facility] calcium-vit cooper D 500 mg(1,250mg) -200 unit per tablet 04-11 00:00: 00 Yes 1{tbl} Take 1 tablet by mouth daily. [facility] calcium-vit cooper D 500 mg(1,250mg) -200 unit per tablet 04-11 00:00: 00 Yes 1{tbl} Take 1 tablet by mouth daily. [facility] calcium-vit cooper D 500 mg(1,250mg) -200 unit per tablet 04-11 00:00: 00 Yes 1{tbl} Take 1 tablet by mouth daily. [facility] calcium-vit cooper D 500 mg(1,250mg) -200 unit per tablet 04-11 00:00: 00 Yes 1{tbl} Take 1 tablet by mouth daily. [facility] calcium-vit cooper D 500 mg(1,250mg) -200 unit per tablet 04-11 00:00: 00 Yes 1{tbl} Take 1 tablet by mouth daily. [facility] calcium-vit cooper D 500 mg(1,250mg) -200 unit per tablet 04-11 00:00: 00 Yes 1{tbl} Take 1 tablet by mouth daily. [facility] calcium-vit cooper D 500 mg(1,250mg) -200 unit per tablet 04-11 00:00: 00 Yes 1{tbl} Take 1 tablet by mouth daily. [facility] calcium-vit cooper D 500 mg(1,250mg) -200 unit per tablet 04-11 00:00: 00 Yes 1{tbl} Take 1 tablet by mouth daily. [facility] [facility] calcium-vit cooper D 500 mg(1,250mg) -200 unit per tablet 04-11 00:00: 00 Yes 1{tbl} Take 1 tablet by mouth daily. [facility] calcium-vit cooper D 500 mg(1,250mg) -200 unit per tablet 04-11 00:00: 00 Yes 1{tbl} Take 1 tablet by mouth daily. [facility] calcium-vit cooper D 500 mg(1,250mg) -200 unit per tablet 04-11 00:00: 00 Yes 1{tbl} Take 1 tablet by mouth daily. [facility] calcium-vit cooper D 500 mg(1,250mg) -200 unit per tablet 04-11 00:00: 00 Yes 1{tbl} Take 1 tablet by mouth daily. [facility] calcium-vit cooepr D 500 mg(1,250mg) -200 unit per tablet 04-11 00:00: 00 Yes 1{tbl} Take 1 tablet by mouth daily. [facility] calcium-vit cooper D 500 mg(1,250mg) -200 unit per tablet 04-11 00:00: 00 Yes 1{tbl} Take 1 tablet by mouth daily. [facility] calcium-vit cooper D 500 mg(1,250mg) -200 unit per tablet 04-11 00:00: 00 Yes 1{tbl} Take 1 tablet by mouth daily. [facility] calcium-vit cooper D 500 mg(1,250mg) -200 unit per tablet 04-11 00:00: 00 Yes 1{tbl} Take 1 tablet by mouth daily. [facility] calcium-vit cooper D 500 mg(1,250mg) -200 unit per tablet 04-11 00:00: 00 Yes 1{tbl} Take 1 tablet by mouth daily. [facility] calcium-vit cooper D 500 mg(1,250mg) -200 unit per tablet 04-11 00:00: 00 Yes 1{tbl} Take 1 tablet by mouth daily. [facility] calcium-vit cooper D 500 mg(1,250mg) -200 unit per tablet 04-11 00:00: 00 Yes 1{tbl} Take 1 tablet by mouth daily. [facility] calcium-vit cooper D 500 mg(1,250mg) -200 unit per tablet 04-11 00:00: 00 Yes 1{tbl} Take 1 tablet by mouth daily. [facility] calcium-vit cooper D 500 mg(1,250mg) -200 unit per tablet 04-11 00:00: 00 Yes 1{tbl} Take 1 tablet by mouth daily. [facility] calcium-vit cooper D 500 mg(1,250mg) -200 unit per tablet 04-11 00:00: 00 Yes 1{tbl} Take 1 tablet by mouth daily. [facility] calcium-vit cooper D 500 mg(1,250mg) -200 unit per tablet 04-11 00:00: 00 Yes 1{tbl} Take 1 tablet by mouth daily. [facility] calcium-vit cooper D 500 mg(1,250mg) -200 unit per tablet 04-11 00:00: 00 Yes 1{tbl} Take 1 tablet by mouth daily. [facility] calcium-vit cooper D 500 mg(1,250mg) -200 unit per tablet 04-11 00:00: 00 Yes 1{tbl} Take 1 tablet by mouth daily. [facility] calcium-vit cooper D 500 mg(1,250mg) -200 unit per tablet 04-11 00:00: 00 Yes 1{tbl} Take 1 tablet by mouth daily. [facility] calcium-vit cooper D 500 mg(1,250mg) -200 unit per tablet 04-11 00:00: 00 Yes 1{tbl} Take 1 tablet by mouth daily. [facility] calcium-vit cooper D 500 mg(1,250mg) -200 unit per tablet 04-11 00:00: 00 Yes 1{tbl} Take 1 tablet by mouth daily. [facility] calcium-vit cooper D 500 mg(1,250mg) -200 unit per tablet 04-11 00:00: 00 Yes 1{tbl} Take 1 tablet by mouth daily. [facility] calcium-vit cooper D 500 mg(1,250mg) -200 unit per tablet 04-11 00:00: 00 Yes 1{tbl} Take 1 tablet by mouth daily. [facility] calcium-vit cooper D 500 mg(1,250mg) -200 unit per tablet 04-11 00:00: 00 Yes 1{tbl} Take 1 tablet by mouth daily. [facility] calcium-vit cooper D 500 mg(1,250mg) -200 unit per tablet 04-11 00:00: 00 Yes 1{tbl} Take 1 tablet by mouth daily. [facility] calcium-vit cooper D 500 mg(1,250mg) -200 unit per tablet 04-11 00:00: 00 Yes 1{tbl} Take 1 tablet by mouth daily. [facility] calcium-vit cooper D 500 mg(1,250mg) -200 unit per tablet 04-11 00:00: 00 Yes 1{tbl} Take 1 tablet by mouth daily. [facility] calcium-vit cooper D 500 mg(1,250mg) -200 unit per tablet 04-11 00:00: 00 Yes 1{tbl} Take 1 tablet by mouth daily. [facility] calcium-vit cooper D 500 mg(1,250mg) -200 unit per tablet 04-11 00:00: 00 Yes 1{tbl} Take 1 tablet by mouth daily. [facility] calcium-vit cooper D 500 mg(1,250mg) -200 unit per tablet 04-11 00:00: 00 Yes 1{tbl} Take 1 tablet by mouth daily. [facility] calcium-vit cooper D 500 mg(1,250mg) -200 unit per tablet 04-11 00:00: 00 Yes 1{tbl} Take 1 tablet by mouth daily. [facility] calcium-vit cooper D 500 mg(1,250mg) -200 unit per tablet 04-11 00:00: 00 Yes 1{tbl} Take 1 tablet by mouth daily. [facility] calcium-vit cooper D 500 mg(1,250mg) -200 unit per tablet 04-11 00:00: 00 Yes 1{tbl} Take 1 tablet by mouth daily. [facility] calcium-vit cooper D 500 mg(1,250mg) -200 unit per tablet 04-11 00:00: 00 Yes 1{tbl} Take 1 tablet by mouth daily. [facility] calcium-vit cooper D 500 mg(1,250mg) -200 unit per tablet 04-11 00:00: 00 Yes 1{tbl} Take 1 tablet by mouth daily. [facility] calcium-vit cooper D 500 mg(1,250mg) -200 unit per tablet 04-11 00:00: 00 Yes 1{tbl} Take 1 tablet by mouth daily. [facility] calcium-vit cooper D 500 mg(1,250mg) -200 unit per tablet 04-11 00:00: 00 Yes 1{tbl} Take 1 tablet by mouth daily. [facility] calcium-vit cooper D 500 mg(1,250mg) -200 unit per tablet 04-11 00:00: 00 Yes 1{tbl} Take 1 tablet by mouth daily. [facility] calcium-vit cooper D 500 mg(1,250mg) -200 unit per tablet 04-11 00:00: 00 Yes 1{tbl} Take 1 tablet by mouth daily. [facility] calcium-vit cooper D 500 mg(1,250mg) -200 unit per tablet 04-11 00:00: 00 Yes 1{tbl} Take 1 tablet by mouth daily. [facility] calcium-vit cooper D 500 mg(1,250mg) -200 unit per tablet 04-11 00:00: 00 Yes 1{tbl} Take 1 tablet by mouth daily. [facility] calcium-vit cooper D 500 mg(1,250mg) -200 unit per tablet 04-11 00:00: 00 Yes 1{tbl} Take 1 tablet by mouth daily. [facility] calcium-vit cooper D 500 mg(1,250mg) -200 unit per tablet 04-11 00:00: 00 Yes 1{tbl} Take 1 tablet by mouth daily. [facility] calcium-vit cooper D 500 mg(1,250mg) -200 unit per tablet 04-11 00:00: 00 Yes 1{tbl} Take 1 tablet by mouth daily. [facility] FLUoxetine 10 mg capsule 04-11 00:00: 00 Yes 20mg Take 2 capsules by mouth daily. [facility] Nicotine 21-14-7 mg/24 hr PTDS 04-11 00:00: 00 Yes Use 21 for 30 days and 14 for next 30 days [facility] calcium-vit cooper D 500 mg(1,250mg) -200 unit per tablet 04-11 00:00: 00 Yes 1{tbl} Take 1 tablet by mouth daily. [facility] Nicotine 21-14-7 mg/24 hr PTDS 04-11 00:00: 00 Yes Use 21 for 30 days and 14 for next 30 days [facility] calcium-vit cooper D 500 mg(1,250mg) -200 unit per tablet 04-11 00:00: 00 Yes 1{tbl} Take 1 tablet by mouth daily. [facility] Nicotine 21-14-7 mg/24 hr PTDS 04-11 00:00: 00 Yes Use 21 for 30 days and 14 for next 30 days [facility] calcium-vit cooper D 500 mg(1,250mg) -200 unit per tablet 04-11 00:00: 00 Yes 1{tbl} Take 1 tablet by mouth daily. [facility] Nicotine 21-14-7 mg/24 hr PTDS 04-11 00:00: 00 Yes Use 21 for 30 days and 14 for next 30 days [facility] calcium-vit cooper D 500 mg(1,250mg) -200 unit per tablet 04-11 00:00: 00 Yes 1{tbl} Take 1 tablet by mouth daily. [facility] Nicotine 21-14-7 mg/24 hr PTDS 04-11 00:00: 00 Yes Use 21 for 30 days and 14 for next 30 days [facility] calcium-vit cooper D 500 mg(1,250mg) -200 unit per tablet 04-11 00:00: 00 Yes 1{tbl} Take 1 tablet by mouth daily. [facility] Nic[facility] 21-14-7 mg/24 hr PTDS 04-11 00:00: 00 Yes Use 21 for 30 days and 14 for next 30 days [facility] calcium-vit cooper D 500 mg(1,250mg) -200 unit per tablet 04-11 00:00: 00 Yes 1{tbl} Take 1 tablet by mouth daily. [facility] Nic[facility] 21-14-7 mg/24 hr PTDS 04-11 00:00: 00 Yes Use 21 for 30 days and 14 for next 30 days [facility] calcium-vit cooper D 500 mg(1,250mg) -200 unit per tablet 04-11 00:00: 00 Yes 1{tbl} Take 1 tablet by mouth daily. [facility] Nic[facility] 21-14-7 mg/24 hr PTDS 04-11 00:00: 00 Yes Use 21 for 30 days and 14 for next 30 days [facility] calcium-vit cooper D 500 mg(1,250mg) -200 unit per tablet 04-11 00:00: 00 Yes 1{tbl} Take 1 tablet by mouth daily. [facility] Nicotine 21-14-7 mg/24 hr PTDS 04-11 00:00: 00 Yes Use 21 for 30 days and 14 for next 30 days [facility] calcium-vit cooper D 500 mg(1,250mg) -200 unit per tablet 04-11 00:00: 00 Yes 1{tbl} Take 1 tablet by mouth daily. [facility] Nicotine 21-14-7 mg/24 hr PTDS 04-11 00:00: 00 Yes Use 21 for 30 days and 14 for next 30 days [facility] calcium-vit cooper D 500 mg(1,250mg) -200 unit per tablet 04-11 00:00: 00 Yes 1{tbl} Take 1 tablet by mouth daily. [facility] Nicotine 21-14-7 mg/24 hr PTDS 04-11 00:00: 00 Yes Use 21 for 30 days and 14 for next 30 days [facility] 500 mg(1,250mg) -200 unit per tablet 04-11 00:00: 00 Yes 1{tbl} Take 1 tablet by mouth daily. [facility] Nicotine 21-14-7 mg/24 hr PTDS 04-11 00:00: 00 Yes Use 21 for 30 days and 14 for next 30 days [facility]-vit [facility] D 500 mg(1,250mg) -200 unit per tablet 04-11 00:00: 00 Yes 1{tbl} Take 1 tablet by mouth daily. [facility] Nicotine 21-14-7 mg/24 hr PTDS 04-11 00:00: 00 Yes Use 21 for 30 days and 14 for next 30 days [facility]vit [facility] D 500 mg(1,250mg) -200 unit per tablet 04-11 00:00: 00 Yes 1{tbl} Take 1 tablet by mouth daily. [facility] Nicotine 21-14-7 mg/24 hr PTDS 04-11 00:00: 00 Yes Use 21 for 30 days and 14 for next 30 days [facility] D 500 mg(1,250mg) -200 unit per tablet 04-11 00:00: 00 Yes 1{tbl} Take 1 tablet by mouth daily. [facility] Nicotine 21-14-7 mg/24 hr PTDS 04-11 00:00: 00 Yes Use 21 for 30 days and 14 for next 30 days [facility] calcium-vit cooper D 500 mg(1,250mg) -200 unit per tablet 04-11 00:00: 00 Yes 1{tbl} Take 1 tablet by mouth daily. [facility] Nicotine 21-14-7 mg/24 hr PTDS 04-11 00:00: 00 Yes Use 21 for 30 days and 14 for next 30 days [facility] calcium-vit cooper D 500 mg(1,250mg) -200 unit per tablet 04-11 00:00: 00 Yes 1{tbl} Take 1 tablet by mouth daily. [facility] Nicotine 21-14-7 mg/24 hr PTDS 04-11 00:00: 00 Yes Use 21 for 30 days and 14 for next 30 days [facility] calcium-vit cooper D 500 mg(1,250mg) -200 unit per tablet 04-11 00:00: 00 Yes 1{tbl} Take 1 tablet by mouth daily. [facility] Nic[facility] 21-14-7 mg/24 hr PTDS 04-11 00:00: 00 Yes Use 21 for 30 days and 14 for next 30 days [facility] calcium-vit cooper D 500 mg(1,250mg) -200 unit per tablet 04-11 00:00: 00 Yes 1{tbl} Take 1 tablet by mouth daily. [facility] Nic[facility] 21-14-7 mg/24 hr PTDS 04-11 00:00: 00 Yes Use 21 for 30 days and 14 for next 30 days [facility] calcium-vit cooper D 500 mg(1,250mg) -200 unit per tablet 04-11 00:00: 00 Yes 1{tbl} Take 1 tablet by mouth daily. [facility] Nicotine 21-14-7 mg/24 hr PTDS 04-11 00:00: 00 Yes Use 21 for 30 days and 14 for next 30 days [facility] calcium-vit cooper D 500 mg(1,250mg) -200 unit per tablet 04-11 00:00: 00 Yes 1{tbl} Take 1 tablet by mouth daily. [facility] Nicotine 21-14-7 mg/24 hr PTDS 04-11 00:00: 00 Yes Use 21 for 30 days and 14 for next 30 days [facility] calcium-vit cooper D 500 mg(1,250mg) -200 unit per tablet 04-11 00:00: 00 Yes 1{tbl} Take 1 tablet by mouth daily. [facility] Nicotine 21-14-7 mg/24 hr PTDS 04-11 00:00: 00 Yes Use 21 for 30 days and 14 for next 30 days [facility] 500 mg(1,250mg) -200 unit per tablet 04-11 00:00: 00 Yes 1{tbl} Take 1 tablet by mouth daily. [facility] Nicotine 21-14-7 mg/24 hr PTDS 04-11 00:00: 00 Yes Use 21 for 30 days and 14 for next 30 days [facility] 500 mg(1,250mg) -200 unit per tablet 04-11 00:00: 00 Yes 1{tbl} Take 1 tablet by mouth daily. [facility] Nicotine 21-14-7 mg/24 hr PTDS 04-11 00:00: 00 Yes Use 21 for 30 days and 14 for next 30 days [facility]-vit [facility] D 500 mg(1,250mg) -200 unit per tablet 04-11 00:00: 00 Yes 1{tbl} Take 1 tablet by mouth daily. [facility] Nicotine 21-14-7 mg/24 hr PTDS 04-11 00:00: 00 Yes Use 21 for 30 days and 14 for next 30 days [facility]-vit [facility] D 500 mg(1,250mg) -200 unit per tablet 04-11 00:00: 00 Yes 1{tbl} Take 1 tablet by mouth daily. [facility] Nicotine 21-14-7 mg/24 hr PTDS 04-11 00:00: 00 Yes Use 21 for 30 days and 14 for next 30 days [facility] calcium-vit cooper D 500 mg(1,250mg) -200 unit per tablet 04-11 00:00: 00 Yes 1{tbl} Take 1 tablet by mouth daily. [facility] Nicotine 21-14-7 mg/24 hr PTDS 04-11 00:00: 00 Yes Use 21 for 30 days and 14 for next 30 days [facility] calcium-vit cooper D 500 mg(1,250mg) -200 unit per tablet 04-11 00:00: 00 Yes 1{tbl} Take 1 tablet by mouth daily. [facility] Nic[facility] 21-14-7 mg/24 hr PTDS 04-11 00:00: 00 Yes Use 21 for 30 days and 14 for next 30 days [facility] calcium-vit cooper D 500 mg(1,250mg) -200 unit per tablet 04-11 00:00: 00 Yes 1{tbl} Take 1 tablet by mouth daily. [facility] Nicotine 21-14-7 mg/24 hr PTDS 04-11 00:00: 00 Yes Use 21 for 30 days and 14 for next 30 days [facility] calcium-vit cooper D 500 mg(1,250mg) -200 unit per tablet 04-11 00:00: 00 Yes 1{tbl} Take 1 tablet by mouth daily. [facility] Nic[facility] 21-14-7 mg/24 hr PTDS 04-11 00:00: 00 Yes Use 21 for 30 days and 14 for next 30 days [facility] calcium-vit cooper D 500 mg(1,250mg) -200 unit per tablet 04-11 00:00: 00 12-09 00:00 :00 No 1{tbl} Take 1 tablet by mouth daily. [facility] Nic[facility] 21-14-7 mg/24 hr PTDS 04-11 00:00: 00 12-31 00:00 :00 No Use 21 for 30 days and 14 for next 30 days [facility] FLUoxetine 10 mg capsule 04-11 00:00: 00 06-09 00:00 :00 No 20mg Take 2 capsules by mouth daily. [facility] FLUoxetine 10 mg capsule 04-11 00:00: 00 06-09 00:00 :00 No 20mg Take 2 capsules by mouth daily. [facility] FLUoxetine 10 mg capsule 04-11 00:00: 00 06-09 00:00 :00 No 20mg Take 2 capsules by mouth daily. [facility] anastrozole 1 mg tablet 02-12 00:00: 00 Yes 1mg Take 1 tablet by mouth daily. [facility] anastrozole 1 mg tablet 02-12 00:00: 00 Yes 1mg Take 1 tablet by mouth daily. [facility] anastrozole 1 mg tablet 02-12 00:00: 00 Yes 1mg Take 1 tablet by mouth daily. [facility] anastrozole 1 mg tablet 02-12 00:00: 00 Yes 1mg Take 1 tablet by mouth daily. [facility] anastrozole 1 mg tablet 02-12 00:00: 00 Yes 1mg Take 1 tablet by mouth daily. [facility] anastrozole 1 mg tablet 02-12 00:00: 00 Yes 1mg Take 1 tablet by mouth daily. [facility] anastrozole 1 mg tablet 02-12 00:00: 00 Yes 1mg Take 1 tablet by mouth daily. [facility] anastrozole 1 mg tablet 02-12 00:00: 00 Yes 1mg Take 1 tablet by mouth daily. [facility] anastrozole 1 mg tablet 02-12 00:00: 00 Yes 1mg Take 1 tablet by mouth daily. [facility] anastrozole 1 mg tablet 02-12 00:00: 00 Yes 1mg Take 1 tablet by mouth daily. [facility] anastrozole 1 mg tablet 02-12 00:00: 00 Yes 1mg Take 1 tablet by mouth daily. [facility] anastrozole 1 mg tablet 02-12 00:00: 00 Yes 1mg Take 1 tablet by mouth daily. [facility] anastrozole 1 mg tablet 02-12 00:00: 00 Yes 1mg Take 1 tablet by mouth daily. [facility] anastrozole 1 mg tablet 02-12 00:00: 00 Yes 1mg Take 1 tablet by mouth daily. [facility] anastrozole 1 mg tablet 02-12 00:00: 00 Yes 1mg Take 1 tablet by mouth daily. [facility] anastrozole 1 mg tablet 02-12 00:00: 00 Yes 1mg Take 1 tablet by mouth daily. [facility] anastrozole 1 mg tablet 02-12 00:00: 00 Yes 1mg Take 1 tablet by mouth daily. [facility] anastrozole 1 mg tablet 02-12 00:00: 00 Yes 1mg Take 1 tablet by mouth daily. [facility] anastrozole 1 mg tablet 02-12 00:00: 00 Yes 1mg Take 1 tablet by mouth daily. [facility] anastrozole 1 mg tablet 02-12 00:00: 00 Yes 1mg Take 1 tablet by mouth daily. [facility] anastrozole 1 mg tablet 02-12 00:00: 00 Yes 1mg Take 1 tablet by mouth daily. [facility] anastrozole 1 mg tablet 02-12 00:00: 00 Yes 1mg Take 1 tablet by mouth daily. [facility] anastrozole 1 mg tablet 02-12 00:00: 00 Yes 1mg Take 1 tablet by mouth daily. [facility] anastrozole 1 mg tablet 02-12 00:00: 00 Yes 1mg Take 1 tablet by mouth daily. [facility] anastrozole 1 mg tablet 02-12 00:00: 00 Yes 1mg Take 1 tablet by mouth daily. [facility] anastrozole 1 mg tablet 02-12 00:00: 00 Yes 1mg Take 1 tablet by mouth daily. [facility] anastrozole 1 mg tablet 02-12 00:00: 00 Yes 1mg Take 1 tablet by mouth daily. [facility] anastrozole 1 mg tablet 02-12 00:00: 00 Yes 1mg Take 1 tablet by mouth daily. [facility] anastrozole 1 mg tablet 02-12 00:00: 00 Yes 1mg Take 1 tablet by mouth daily. [facility] anastrozole 1 mg tablet 02-12 00:00: 00 Yes 1mg Take 1 tablet by mouth daily. [facility] anastrozole 1 mg tablet 02-12 00:00: 00 Yes 1mg Take 1 tablet by mouth daily. [facility] anastrozole 1 mg tablet 02-12 00:00: 00 Yes 1mg Take 1 tablet by mouth daily. [facility] anastrozole 1 mg tablet 02-12 00:00: 00 Yes 1mg Take 1 tablet by mouth daily. [facility] anastrozole 1 mg tablet 02-12 00:00: 00 Yes 1mg Take 1 tablet by mouth daily. [facility] anastrozole 1 mg tablet 02-12 00:00: 00 Yes 1mg Take 1 tablet by mouth daily. [facility] anastrozole 1 mg tablet 02-12 00:00: 00 Yes 1mg Take 1 tablet by mouth daily. [facility] anastrozole 1 mg tablet 02-12 00:00: 00 01-28 00:00 :00 No 1mg Take 1 tablet by mouth daily. [facility] tiotropium (SPIRIVA WITH HANDIHALER) 18 mcg inhalation 02-04 00:00: 00 Yes [id number] 18ug Inhale 1 capsule daily. [facility] tiotropium (SPIRIVA WITH HANDIHALER) 18 mcg inhalation 02-04 00:00: 00 06-09 00:00 :00 No [id number] 18ug Inhale 1 capsule daily. [facility] tiotropium (SPIRIVA WITH HANDIHALER) 18 mcg inhalation 02-04 00:00: 00 06-09 00:00 :00 No [id number] 18ug Inhale 1 capsule daily. [facility] tiotropium (SPIRIVA WITH HANDIHALER) 18 mcg inhalation 02-04 00:00: 00 06-09 00:00 :00 No [id number] 18ug Inhale 1 capsule daily. [facility] albuterol 90 mcg/actuati on inhaler 11-22 00:00: 00 Yes [id number] 2{puff} Inhale 2 Puffs every 4 (four) hours as needed for Wheezing or Shortness of Breath. [facility] albuterol 90 mcg/actuati on inhaler 11-22 00:00: 00 06-09 00:00 :00 No [id number] 2{puff} Inhale 2 Puffs every 4 (four) hours as needed for Wheezing or Shortness of Breath. [facility] albuterol 90 mcg/actuati on inhaler 11-22 00:00: 00 06-09 00:00 :00 No [id number] 2{puff} Inhale 2 Puffs every 4 (four) hours as needed for Wheezing or Shortness of Breath. [facility] albuterol 90 mcg/actuati on inhaler 11-22 00:00: 00 06-09 00:00 :00 No [id number] 2{puff} Inhale 2 Puffs every 4 (four) hours as needed for Wheezing or Shortness of Breath. [facility] ipratropium 0.02 % nebulizer solution 10-10 00:00: 00 Yes .5mg Inhale 2.5 mL every 4 (four) hours. [facility] albuterol 2.5 mg /3 mL (0.083 %) nebulizer solution 10-10 00:00: 00 Yes 2.5mg Inhale 3 mL every 4 (four) hours. [facility] ipratropium 0.02 % nebulizer solution 10-10 00:00: 00 06-09 00:00 :00 No .5mg Inhale 2.5 mL every 4 (four) hours. [facility] albuterol 2.5 mg /3 mL (0.083 %) nebulizer solution 10-10 00:00: 00 06-09 00:00 :00 No 2.5mg Inhale 3 mL every 4 (four) hours. [facility] ipratropium 0.02 % nebulizer solution 10-10 00:00: 00 06-09 00:00 :00 No .5mg Inhale 2.5 mL every 4 (four) hours. [facility] albuterol 2.5 mg /3 mL (0.083 %) nebulizer solution 10-10 00:00: 00 06-09 00:00 :00 No 2.5mg Inhale 3 mL every 4 (four) hours. [facility] ipratropium 0.02 % nebulizer solution 10-10 00:00: 00 06-09 00:00 :00 No .5mg Inhale 2.5 mL every 4 (four) hours. [facility] albuterol 2.5 mg /3 mL (0.083 %) nebulizer solution 10-10 00:00: 00 06-09 00:00 :00 No 2.5mg Inhale 3 mL every 4 (four) hours. [facility] Immunizations Ordered Immunization Name Filled Immunization Name Date Status Comments Source Influenza Virus Vaccine Quad .5 mL IM 6+ MO 2019-10-07 00:00:00 Completed [facility] Influenza Virus Vaccine Quad .5 mL IM 6+ MO 2019-10-07 00:00:00 Completed [facility] Influenza Virus Vaccine Quad .5 mL IM 6+ MO 2019-10-07 00:00:00 Completed [facility] Influenza Virus Vaccine Quad .5 mL IM 6+ MO 2019-10-07 00:00:00 Completed [facility] Influenza Virus Vaccine Quad .5 mL IM 6+ MO 2019-10-07 00:00:00 Completed [facility] Influenza Virus Vaccine Quad .5 mL IM 6+ MO 2019-10-07 00:00:00 Completed [facility] Influenza Virus Vaccine Quad .5 mL IM 6+ MO 2019-10-07 00:00:00 Completed [facility] Influenza Virus Vaccine Quad .5 mL IM 6+ MO 2019-10-07 00:00:00 Completed [facility] Influenza Virus Vaccine Quad .5 mL IM 6+ MO 2019-10-07 00:00:00 Completed [facility] Influenza Virus Vaccine Quad .5 mL IM 6+ MO 2019-10-07 00:00:00 Completed [facility] Influenza Virus Vaccine Quad .5 mL IM 6+ MO 2019-10-07 00:00:00 Completed [facility] Influenza Virus Vaccine Quad .5 mL IM 6+ MO 2019-10-07 00:00:00 Completed [facility] Influenza Virus Vaccine Quad .5 mL IM 6+ MO 2019-10-07 00:00:00 Completed [facility] Influ[employer] Virus Vaccine Quad .5 mL IM 6+ MO 2019-10-07 00:00:00 Completed [facility] Influenza Virus Vaccine Quad .5 mL IM 6+ MO 2019-10-07 00:00:00 Completed [facility] Influenza Virus Vaccine Quad .5 mL IM 6+ MO 2019-10-07 00:00:00 Completed [facility] Influenza Virus Vaccine Quad .5 mL IM 6+ MO 2019-10-07 00:00:00 Completed [facility] Influenza Virus Vaccine Quad .5 mL IM 6+ MO 2019-10-07 00:00:00 Completed [facility] Influenza Virus Vaccine Quad .5 mL IM 6+ MO 2019-10-07 00:00:00 Completed [facility] Influenza Virus Vaccine Quad .5 mL IM 6+ MO 2019-10-07 00:00:00 Completed [facility] Influenza Virus Vaccine Quad .5 mL IM 6+ MO 2019-10-07 00:00:00 Completed [facility] Influenza Virus Vaccine Quad .5 mL IM 6+ MO 2019-10-07 00:00:00 Completed [facility] Influenza Virus Vaccine Quad .5 mL IM 6+ MO 2019-10-07 00:00:00 Completed [facility] Influenza Virus Vaccine Quad .5 mL IM 6+ MO 2019-10-07 00:00:00 Completed [facility] Influenza Virus Vaccine Quad .5 mL IM 6+ MO 2019-10-07 00:00:00 Completed [facility] Influenza Virus Vaccine Quad .5 mL IM 6+ MO 2019-10-07 00:00:00 Completed [facility] Influenza Virus Vaccine Quad .5 mL IM 6+ MO 2019-10-07 00:00:00 Completed [facility] Influenza Virus Vaccine Quad .5 mL IM 6+ MO 2019-10-07 00:00:00 Completed [facility] Influenza Virus Vaccine Quad .5 mL IM 6+ MO 2019-10-07 00:00:00 Completed [facility] Influenza Virus Vaccine Quad .5 mL IM 6+ MO 2019-10-07 00:00:00 Completed [facility] Influenza Virus Vaccine Quad .5 mL IM 6+ MO 2019-10-07 00:00:00 Completed [facility] Influenza Virus Vaccine Quad .5 mL IM 6+ MO 2019-10-07 00:00:00 Completed [facility] Influenza Virus Vaccine Quad .5 mL IM 6+ MO 2019-10-07 00:00:00 Completed [facility] Influenza Virus Vaccine Quad .5 mL IM 6+ MO 2019-10-07 00:00:00 Completed [facility] Influenza Virus Vaccine Quad .5 mL IM 6+ MO 2019-10-07 00:00:00 Completed [facility] Influenza Virus Vaccine Quad .5 mL IM 6+ MO 2019-10-07 00:00:00 Completed [facility] Influenza Virus Vaccine Quad .5 mL IM 6+ MO 2019-10-07 00:00:00 Completed [facility] Influenza Virus Vaccine Quad .5 mL IM 6+ MO 2019-10-07 00:00:00 Completed [facility] Influenza Virus Vaccine Quad .5 mL IM 6+ MO 2019-10-07 00:00:00 Completed [facility] Influenza Virus Vaccine Quad .5 mL IM 6+ MO 2019-10-07 00:00:00 Completed [facility] Influenza Virus Vaccine Quad .5 mL IM 6+ MO 2019-10-07 00:00:00 Completed [facility] Influenza Virus Vaccine Quad .5 mL IM 6+ MO 2019-10-07 00:00:00 Completed [facility] Influenza Virus Vaccine Quad .5 mL IM 6+ MO 2019-10-07 00:00:00 Completed [facility] Influenza Virus Vaccine Quad .5 mL IM 6+ MO 2019-10-07 00:00:00 Completed [facility] Influenza Virus Vaccine Quad .5 mL IM 6+ MO 2019-10-07 00:00:00 Completed [facility] Influenza Virus Vaccine Quad .5 mL IM 6+ MO 2019-10-07 00:00:00 Completed [facility] Influenza Virus Vaccine Quad .5 mL IM 6+ MO 2019-10-07 00:00:00 Completed [facility] Influenza Virus Vaccine Quad .5 mL IM 6+ MO 2019-10-07 00:00:00 Completed [facility] Influenza Virus Vaccine Quad .5 mL IM 6+ MO 2019-10-07 00:00:00 Completed [facility] Influenza Virus Vaccine Quad .5 mL IM 6+ MO 2019-10-07 00:00:00 Completed [facility] Influenza Virus Vaccine Quad .5 mL IM 6+ MO 2019-10-07 00:00:00 Completed [facility] Influenza Virus Vaccine Quad .5 mL IM 6+ MO 2019-10-07 00:00:00 Completed [facility] Influenza Virus Vaccine Quad .5 mL IM 6+ MO 2019-10-07 00:00:00 Completed [facility] Influenza Virus Vaccine Quad .5 mL IM 6+ MO 2019-10-07 00:00:00 Completed [facility] Influenza Virus Vaccine Quad .5 mL IM 6+ MO 2019-10-07 00:00:00 Completed [facility] Influenza Virus Vaccine Quad .5 mL IM 6+ MO 2019-10-07 00:00:00 Completed [facility] Influenza Virus Vaccine Quad .5 mL IM 6+ MO 2019-10-07 00:00:00 Completed [facility] Influenza Virus Vaccine Quad .5 mL IM 6+ MO 2019-10-07 00:00:00 Completed [facility] Influenza Virus Vaccine Quad .5 mL IM 6+ MO 2019-10-07 00:00:00 Completed [facility] Influenza Virus Vaccine Quad .5 mL IM 6+ MO 2019-10-07 00:00:00 Completed [facility] Influenza Virus Vaccine Quad .5 mL IM 6+ MO 2019-10-07 00:00:00 Completed [facility] Influenza Virus Vaccine Quad .5 mL IM 6+ MO 2019-10-07 00:00:00 Completed [facility] Influenza Virus Vaccine Quad .5 mL IM 6+ MO 2019-10-07 00:00:00 Completed [facility] Influenza Virus Vaccine Quad .5 mL IM 6+ MO 2019-10-07 00:00:00 Completed [facility] Influenza Virus Vaccine Quad .5 mL IM 6+ MO 2019-10-07 00:00:00 Completed [facility] Influenza Virus Vaccine Quad .5 mL IM 6+ MO 2019-10-07 00:00:00 Completed [facility] Influenza Virus Vaccine Quad .5 mL IM 6+ MO 2019-10-07 00:00:00 Completed [facility] Influenza Virus Vaccine Quad .5 mL IM 6+ MO 2019-10-07 00:00:00 Completed [facility] Influenza Virus Vaccine Quad .5 mL IM 6+ MO 2019-10-07 00:00:00 Completed [facility] Influenza Virus Vaccine Quad .5 mL IM 6+ MO 2019-10-07 00:00:00 Completed [facility] Influenza Virus Vaccine Quad .5 mL IM 6+ MO 2019-10-07 00:00:00 Completed [facility] Influenza Virus Vaccine Quad .5 mL IM 6+ MO 2019-10-07 00:00:00 Completed [facility] Influenza Virus Vaccine Quad .5 mL IM 6+ MO 2019-10-07 00:00:00 Completed [facility] Influenza Virus Vaccine Quad .5 mL IM 6+ MO 2019-10-07 00:00:00 Completed [facility] Influenza Virus Vaccine Quad .5 mL IM 6+ MO 2019-10-07 00:00:00 Completed [facility] Influenza Virus Vaccine Quad .5 mL IM 6+ MO 2019-10-07 00:00:00 Completed [facility] Influenza Virus Vaccine Quad .5 mL IM 6+ MO 2019-10-07 00:00:00 Completed [facility] Influenza Virus Vaccine Quad .5 mL IM 6+ MO 2019-10-07 00:00:00 Completed [facility] Influenza Virus Vaccine Quad .5 mL IM 6+ MO 2019-10-07 00:00:00 Completed [facility] Influenza Virus Vaccine Quad .5 mL IM 6+ MO 2019-10-07 00:00:00 Completed [facility] Influenza Virus Vaccine Quad .5 mL IM 6+ MO 2019-10-07 00:00:00 Completed [facility] Influenza Virus Vaccine Quad .5 mL IM 6+ MO 2019-10-07 00:00:00 Completed [facility] Influenza Virus Vaccine Quad .5 mL IM 6+ MO 2019-10-07 00:00:00 Completed [facility] Influenza Virus Vaccine Quad .5 mL IM 6+ MO 2019-10-07 00:00:00 Completed [facility] Influenza Virus Vaccine Quad .5 mL IM 6+ MO 2019-10-07 00:00:00 Completed [facility] Influenza Virus Vaccine Quad .5 mL IM 6+ MO 2019-10-07 00:00:00 Completed [facility] Influenza Virus Vaccine Quad .5 mL IM 6+ MO 2019-10-07 00:00:00 Completed [facility] Influenza Virus Vaccine Quad .5 mL IM 6+ MO 2019-10-07 00:00:00 Completed [facility] Influenza Virus Vaccine Quad .5 mL IM 6+ MO 2019-10-07 00:00:00 Completed [facility] Influenza Virus Vaccine Quad .5 mL IM 6+ MO 2019-10-07 00:00:00 Completed [facility] Influenza Virus Vaccine Quad .5 mL IM 6+ MO 2019-10-07 00:00:00 Completed [facility] Influenza Virus Vaccine Quad .5 mL IM 6+ MO 2019-10-07 00:00:00 Completed [facility] Influenza Virus Vaccine Quad .5 mL IM 6+ MO 2019-10-07 00:00:00 Completed [facility] Influenza Virus Vaccine Quad .5 mL IM 6+ MO 2019-10-07 00:00:00 Completed [facility] Influenza Virus Vaccine Quad .5 mL IM 6+ MO 2019-10-07 00:00:00 Completed [facility] Influenza Virus Vaccine Quad .5 mL IM 6+ MO 2019-10-07 00:00:00 Completed [facility] Influenza Virus Vaccine Quad .5 mL IM 6+ MO 2019-10-07 00:00:00 Completed [facility] Influenza Virus Vaccine Quad .5 mL IM 6+ MO 2019-10-07 00:00:00 Completed [facility] Influenza Virus Vaccine Quad .5 mL IM 6+ MO 2019-10-07 00:00:00 Completed [facility] Influenza Virus Vaccine Quad .5 mL IM 6+ MO 2019-10-07 00:00:00 Completed [facility] Influenza Virus Vaccine Quad .5 mL IM 6+ MO 2019-10-07 00:00:00 Completed [facility] Influenza Virus Vaccine Quad .5 mL IM 6+ MO 2019-10-07 00:00:00 Completed [facility] Influenza Virus Vaccine Quad .5 mL IM 6+ MO 2019-10-07 00:00:00 Completed [facility] Influenza Virus Vaccine Quad .5 mL IM 6+ MO 2019-10-07 00:00:00 Completed [facility] Influenza Virus Vaccine Quad .5 mL IM 6+ MO 2019-10-07 00:00:00 Completed [facility] Influenza Virus Vaccine Quad .5 mL IM 6+ MO 2019-10-07 00:00:00 Completed [facility] Influenza Virus Vaccine Quad .5 mL IM 6+ MO 2019-10-07 00:00:00 Completed [facility] Influenza Virus Vaccine Quad .5 mL IM 6+ MO 2019-10-07 00:00:00 Completed [facility] Influenza Virus Vaccine Quad .5 mL IM 6+ MO 2019-10-07 00:00:00 Completed [facility] Influenza Virus Vaccine Quad .5 mL IM 6+ MO 2019-10-07 00:00:00 Completed [facility] Influenza Virus Vaccine Quad .5 mL IM 6+ MO 2019-10-07 00:00:00 Completed [facility] Influenza Virus Vaccine Quad .5 mL IM 6+ MO 2019-10-07 00:00:00 Completed [facility] Influenza Virus Vaccine Quad .5 mL IM 6+ MO 2019-10-07 00:00:00 Completed [facility] Influenza Virus Vaccine Quad .5 mL IM 6+ MO 2019-10-07 00:00:00 Completed [facility] Influenza Virus Vaccine Quad .5 mL IM 6+ MO 2019-10-07 00:00:00 Completed [facility] Influenza Virus Vaccine Quad .5 mL IM 6+ MO 2019-10-07 00:00:00 Completed [facility] Influenza Virus Vaccine Quad .5 mL IM 6+ MO 2019-10-07 00:00:00 Completed [facility] Influenza Virus Vaccine Quad .5 mL IM 6+ MO 2019-10-07 00:00:00 Completed [facility] Influenza Virus Vaccine Quad .5 mL IM 6+ MO 2019-10-07 00:00:00 Completed [facility] Influenza Virus Vaccine Quad .5 mL IM 6+ MO 2019-10-07 00:00:00 Completed [facility] Influenza Virus Vaccine Quad .5 mL IM 6+ MO 2019-10-07 00:00:00 Completed [facility] Influenza Virus Vaccine Quad .5 mL IM 6+ MO 2019-10-07 00:00:00 Completed [facility] Influenza Virus Vaccine Quad .5 mL IM 6+ MO 2019-10-07 00:00:00 Completed [facility] Influenza Virus Vaccine Quad .5 mL IM 6+ MO 2019-10-07 00:00:00 Completed [facility] Influenza Virus Vaccine Quad .5 mL IM 6+ MO 2019-10-07 00:00:00 Completed [facility] Influenza Virus Vaccine Quad .5 mL IM 6+ MO 2019-10-07 00:00:00 Completed [facility] Influenza Virus Vaccine Quad .5 mL IM 6+ MO 2019-10-07 00:00:00 Completed [facility] Influenza Virus Vaccine Quad .5 mL IM 6+ MO 2019-10-07 00:00:00 Completed [facility] Influenza Virus Vaccine Quad .5 mL IM 6+ MO 2019-10-07 00:00:00 Completed [facility] Influenza Virus Vaccine Quad .5 mL IM 6+ MO 2019-10-07 00:00:00 Completed [facility] Influenza Virus Vaccine Quad .5 mL IM 6+ MO 2019-10-07 00:00:00 Completed [facility] Influenza Virus Vaccine Quad .5 mL IM 6+ MO 2019-10-07 00:00:00 Completed [facility] Influenza Virus Vaccine Quad .5 mL IM 6+ MO 2019-10-07 00:00:00 Completed [facility] Influenza Virus Vaccine Quad .5 mL IM 6+ MO 2019-10-07 00:00:00 Completed [facility] Influenza Virus Vaccine Quad .5 mL IM 6+ MO 2019-10-07 00:00:00 Completed [facility] Influenza Virus Vaccine Quad .5 mL IM 6+ MO 2019-10-07 00:00:00 Completed [facility] Influenza Virus Vaccine Quad .5 mL IM 6+ MO 2019-10-07 00:00:00 Completed [facility] Influenza Virus Vaccine Quad .5 mL IM 6+ MO 2019-10-07 00:00:00 Completed [facility] Influenza Virus Vaccine Quad .5 mL IM 6+ MO 2019-10-07 00:00:00 Completed [facility] Influenza Virus Vaccine Quad .5 mL IM 6+ MO 2019-10-07 00:00:00 Completed [facility] Influenza Virus Vaccine Quad .5 mL IM 6+ MO 2019-10-07 00:00:00 Completed [facility] Influenza Virus Vaccine Quad .5 mL IM 6+ MO 2019-10-07 00:00:00 Completed [facility] Influenza Virus Vaccine Quad .5 mL IM 6+ MO 2019-10-07 00:00:00 Completed [facility] Influenza Virus Vaccine Quad .5 mL IM 6+ MO 2019-10-07 00:00:00 Completed [facility] Influenza Virus Vaccine Quad .5 mL IM 6+ MO 2019-10-07 00:00:00 Completed [facility] Influenza Virus Vaccine Quad .5 mL IM 6+ MO 2019-10-07 00:00:00 Completed [facility] Influenza Virus Vaccine Quad .5 mL IM 6+ MO 2019-10-07 00:00:00 Completed [facility] Influenza Virus Vaccine Quad .5 mL IM 6+ MO 2019-10-07 00:00:00 Completed [facility] Influenza Virus Vaccine Quad .5 mL IM 6+ MO 2019-10-07 00:00:00 Completed [facility] Influenza Virus Vaccine Quad .5 mL IM 6+ MO 2019-10-07 00:00:00 Completed [facility] Influenza Virus Vaccine Quad .5 mL IM 6+ MO 2019-10-07 00:00:00 Completed [facility] Influenza Virus Vaccine Quad .5 mL IM 6+ MO 2019-10-07 00:00:00 Completed [facility] Influenza Virus Vaccine Quad .5 mL IM 6+ MO 2019-10-07 00:00:00 Completed [facility] Influenza Virus Vaccine Quad .5 mL IM 6+ MO 2019-10-07 00:00:00 Completed [facility] Influenza Virus Vaccine Quad .5 mL IM 6+ MO 2019-10-07 00:00:00 Completed [facility] Influenza Virus Vaccine Quad .5 mL IM 6+ MO 2019-10-07 00:00:00 Completed [facility] Influenza Virus Vaccine Quad .5 mL IM 6+ MO 2019-10-07 00:00:00 Completed [facility] Influenza Virus Vaccine Quad IM 3+ YRS 2016-10-10 00:00:00 Completed [facility] Pneumococcal Polysaccharide, PPSV23 (PNEUMOVAX) 2016-10-10 00:00:00 Completed [facility] Influenza Virus Vaccine Quad IM 3+ YRS 2016-10-10 00:00:00 Completed [facility] Pneumococcal Polysaccharide, PPSV23 (PNEUMOVAX) 2016-10-10 00:00:00 Completed [facility] Influenza Virus Vaccine Quad IM 3+ YRS 2016-10-10 00:00:00 Completed [facility] Pneumococcal Polysaccharide, PPSV23 (PNEUMOVAX) 2016-10-10 00:00:00 Completed [facility] Influenza Virus Vaccine Quad IM 3+ YRS 2016-10-10 00:00:00 Completed [facility] Pneumococcal Polysaccharide, PPSV23 (PNEUMOVAX) 2016-10-10 00:00:00 Completed [facility] Influenza Virus Vaccine Quad IM 3+ YRS 2016-10-10 00:00:00 Completed [facility] Pneumococcal Polysaccharide, PPSV23 (PNEUMOVAX) 2016-10-10 00:00:00 Completed [facility] Influenza Virus Vaccine Quad IM 3+ YRS 2016-10-10 00:00:00 Completed [facility] Pneumococcal Polysaccharide, PPSV23 (PNEUMOVAX) 2016-10-10 00:00:00 Completed [facility] Influenza Virus Vaccine Quad IM 3+ YRS 2016-10-10 00:00:00 Completed [facility] Pneumococcal Polysaccharide, PPSV23 (PNEUMOVAX) 2016-10-10 00:00:00 Completed [facility] Influenza Virus Vaccine Quad IM 3+ YRS 2016-10-10 00:00:00 Completed [facility] Pneumococcal Polysaccharide, PPSV23 (PNEUMOVAX) 2016-10-10 00:00:00 Completed [facility] Influenza Virus Vaccine Quad IM 3+ YRS 2016-10-10 00:00:00 Completed [facility] Pneumococcal Polysaccharide, PPSV23 (PNEUMOVAX) 2016-10-10 00:00:00 Completed [facility] Influenza Virus Vaccine Quad IM 3+ YRS 2016-10-10 00:00:00 Completed [facility] Pneumococcal Polysaccharide, PPSV23 (PNEUMOVAX) 2016-10-10 00:00:00 Completed [facility] Influenza Virus Vaccine Quad IM 3+ YRS 2016-10-10 00:00:00 Completed [facility] Pneumococcal Polysaccharide, PPSV23 (PNEUMOVAX) 2016-10-10 00:00:00 Completed [facility] Influenza Virus Vaccine Quad IM 3+ YRS 2016-10-10 00:00:00 Completed [facility] Pneumococcal Polysaccharide, PPSV23 (PNEUMOVAX) 2016-10-10 00:00:00 Completed [facility] Influenza Virus Vaccine Quad IM 3+ YRS 2016-10-10 00:00:00 Completed [facility] Pneumococcal Polysaccharide, PPSV23 (PNEUMOVAX) 2016-10-10 00:00:00 Completed [facility] Influenza Virus Vaccine Quad IM 3+ YRS 2016-10-10 00:00:00 Completed [facility] Pneumococcal Polysaccharide, PPSV23 (PNEUMOVAX) 2016-10-10 00:00:00 Completed [facility] Influenza Virus Vaccine Quad IM 3+ YRS 2016-10-10 00:00:00 Completed [facility] Pneumococcal Polysaccharide, PPSV23 (PNEUMOVAX) 2016-10-10 00:00:00 Completed [facility] Influenza Virus Vaccine Quad IM 3+ YRS 2016-10-10 00:00:00 Completed [facility] Pneumococcal Polysaccharide, PPSV23 (PNEUMOVAX) 2016-10-10 00:00:00 Completed [facility] Influenza Virus Vaccine Quad IM 3+ YRS 2016-10-10 00:00:00 Completed [facility] Pneumococcal Polysaccharide, PPSV23 (PNEUMOVAX) 2016-10-10 00:00:00 Completed [facility] Influenza Virus Vaccine Quad IM 3+ YRS 2016-10-10 00:00:00 Completed [facility] Pneumococcal Polysaccharide, PPSV23 (PNEUMOVAX) 2016-10-10 00:00:00 Completed [facility] Influenza Virus Vaccine Quad IM 3+ YRS 2016-10-10 00:00:00 Completed [facility] Pneumococcal Polysaccharide, PPSV23 (PNEUMOVAX) 2016-10-10 00:00:00 Completed [facility] Influenza Virus Vaccine Quad IM 3+ YRS 2016-10-10 00:00:00 Completed [facility] Pneumococcal Polysaccharide, PPSV23 (PNEUMOVAX) 2016-10-10 00:00:00 Completed [facility] Influenza Virus Vaccine Quad IM 3+ YRS 2016-10-10 00:00:00 Completed [facility] Pneumococcal Polysaccharide, PPSV23 (PNEUMOVAX) 2016-10-10 00:00:00 Completed [facility] Influenza Virus Vaccine Quad IM 3+ YRS 2016-10-10 00:00:00 Completed [facility] Pneumococcal Polysaccharide, PPSV23 (PNEUMOVAX) 2016-10-10 00:00:00 Completed [facility] Influenza Virus Vaccine Quad IM 3+ YRS 2016-10-10 00:00:00 Completed [facility] Pneumococcal Polysaccharide, PPSV23 (PNEUMOVAX) 2016-10-10 00:00:00 Completed [facility] Influenza Virus Vaccine Quad IM 3+ YRS 2016-10-10 00:00:00 Completed [facility] Pneumococcal Polysaccharide, PPSV23 (PNEUMOVAX) 2016-10-10 00:00:00 Completed [facility] Influenza Virus Vaccine Quad IM 3+ YRS 2016-10-10 00:00:00 Completed [facility] Pneumococcal Polysaccharide, PPSV23 (PNEUMOVAX) 2016-10-10 00:00:00 Completed [facility] Influenza Virus Vaccine Quad IM 3+ YRS 2016-10-10 00:00:00 Completed [facility] Pneumococcal Polysaccharide, PPSV23 (PNEUMOVAX) 2016-10-10 00:00:00 Completed [facility] Influenza Virus Vaccine Quad IM 3+ YRS 2016-10-10 00:00:00 Completed [facility] Pneumococcal Polysaccharide, PPSV23 (PNEUMOVAX) 2016-10-10 00:00:00 Completed [facility] Influenza Virus Vaccine Quad IM 3+ YRS 2016-10-10 00:00:00 Completed [facility] Pneumococcal Polysaccharide, PPSV23 (PNEUMOVAX) 2016-10-10 00:00:00 Completed [facility] Influenza Virus Vaccine Quad IM 3+ YRS 2016-10-10 00:00:00 Completed [facility] Pneumococcal Polysaccharide, PPSV23 (PNEUMOVAX) 2016-10-10 00:00:00 Completed [facility] Influenza Virus Vaccine Quad IM 3+ YRS 2016-10-10 00:00:00 Completed [facility] Pneumococcal Polysaccharide, PPSV23 (PNEUMOVAX) 2016-10-10 00:00:00 Completed [facility] Influenza Virus Vaccine Quad IM 3+ YRS 2016-10-10 00:00:00 Completed [facility] Pneumococcal Polysaccharide, PPSV23 (PNEUMOVAX) 2016-10-10 00:00:00 Completed [facility] Influenza Virus Vaccine Quad IM 3+ YRS 2016-10-10 00:00:00 Completed [facility] Pneumococcal Polysaccharide, PPSV23 (PNEUMOVAX) 2016-10-10 00:00:00 Completed [facility] Influenza Virus Vaccine Quad IM 3+ YRS 2016-10-10 00:00:00 Completed [facility] Pneumococcal Polysaccharide, PPSV23 (PNEUMOVAX) 2016-10-10 00:00:00 Completed [facility] Influenza Virus Vaccine Quad IM 3+ YRS 2016-10-10 00:00:00 Completed [facility] Pneumococcal Polysaccharide, PPSV23 (PNEUMOVAX) 2016-10-10 00:00:00 Completed [facility] Influenza Virus Vaccine Quad IM 3+ YRS 2016-10-10 00:00:00 Completed [facility] Pneumococcal Polysaccharide, PPSV23 (PNEUMOVAX) 2016-10-10 00:00:00 Completed [facility] Influenza Virus Vaccine Quad IM 3+ YRS 2016-10-10 00:00:00 Completed [facility] Pneumococcal Polysaccharide, PPSV23 (PNEUMOVAX) 2016-10-10 00:00:00 Completed [facility] Influenza Virus Vaccine Quad IM 3+ YRS 2016-10-10 00:00:00 Completed [facility] Pneumococcal Polysaccharide, PPSV23 (PNEUMOVAX) 2016-10-10 00:00:00 Completed [facility] Influenza Virus Vaccine Quad IM 3+ YRS 2016-10-10 00:00:00 Completed [facility] Pneumococcal Polysaccharide, PPSV23 (PNEUMOVAX) 2016-10-10 00:00:00 Completed [facility] Influenza Virus Vaccine Quad IM 3+ YRS 2016-10-10 00:00:00 Completed [facility] Pneumococcal Polysaccharide, PPSV23 (PNEUMOVAX) 2016-10-10 00:00:00 Completed [facility] Influenza Virus Vaccine Quad IM 3+ YRS 2016-10-10 00:00:00 Completed [facility] Pneumococcal Polysaccharide, PPSV23 (PNEUMOVAX) 2016-10-10 00:00:00 Completed [facility] Influenza Virus Vaccine Quad IM 3+ YRS 2016-10-10 00:00:00 Completed [facility] Pneumococcal Polysaccharide, PPSV23 (PNEUMOVAX) 2016-10-10 00:00:00 Completed [facility] Influenza Virus Vaccine Quad IM 3+ YRS 2016-10-10 00:00:00 Completed [facility] Pneumococcal Polysaccharide, PPSV23 (PNEUMOVAX) 2016-10-10 00:00:00 Completed [facility] Influenza Virus Vaccine Quad IM 3+ YRS 2016-10-10 00:00:00 Completed [facility] Pneumococcal Polysaccharide, PPSV23 (PNEUMOVAX) 2016-10-10 00:00:00 Completed [facility] Influenza Virus Vaccine Quad IM 3+ YRS 2016-10-10 00:00:00 Completed [facility] Pneumococcal Polysaccharide, PPSV23 (PNEUMOVAX) 2016-10-10 00:00:00 Completed [facility] Influenza Virus Vaccine Quad IM 3+ YRS 2016-10-10 00:00:00 Completed [facility] Pneumococcal Polysaccharide, PPSV23 (PNEUMOVAX) 2016-10-10 00:00:00 Completed [facility] Influenza Virus Vaccine Quad IM 3+ YRS 2016-10-10 00:00:00 Completed [facility] Pneumococcal Polysaccharide, PPSV23 (PNEUMOVAX) 2016-10-10 00:00:00 Completed [facility] Influenza Virus Vaccine Quad IM 3+ YRS 2016-10-10 00:00:00 Completed [facility] Pneumococcal Polysaccharide, PPSV23 (PNEUMOVAX) 2016-10-10 00:00:00 Completed [facility] Influenza Virus Vaccine Quad IM 3+ YRS 2016-10-10 00:00:00 Completed [facility] Pneumococcal Polysaccharide, PPSV23 (PNEUMOVAX) 2016-10-10 00:00:00 Completed [facility] Influenza Virus Vaccine Quad IM 3+ YRS 2016-10-10 00:00:00 Completed [facility] Pneumococcal Polysaccharide, PPSV23 (PNEUMOVAX) 2016-10-10 00:00:00 Completed [facility] Influenza Virus Vaccine Quad IM 3+ YRS 2016-10-10 00:00:00 Completed [facility] Pneumococcal Polysaccharide, PPSV23 (PNEUMOVAX) 2016-10-10 00:00:00 Completed [facility] Influenza Virus Vaccine Quad IM 3+ YRS 2016-10-10 00:00:00 Completed [facility] Pneumococcal Polysaccharide, PPSV23 (PNEUMOVAX) 2016-10-10 00:00:00 Completed [facility] Influenza Virus Vaccine Quad IM 3+ YRS 2016-10-10 00:00:00 Completed [facility] Pneumococcal Polysaccharide, PPSV23 (PNEUMOVAX) 2016-10-10 00:00:00 Completed [facility] Influenza Virus Vaccine Quad IM 3+ YRS 2016-10-10 00:00:00 Completed [facility] Pneumococcal Polysaccharide, PPSV23 (PNEUMOVAX) 2016-10-10 00:00:00 Completed [facility] Influenza Virus Vaccine Quad IM 3+ YRS 2016-10-10 00:00:00 Completed [facility] Pneumococcal Polysaccharide, PPSV23 (PNEUMOVAX) 2016-10-10 00:00:00 Completed [facility] Influenza Virus Vaccine Quad IM 3+ YRS 2016-10-10 00:00:00 Completed [facility] Pneumococcal Polysaccharide, PPSV23 (PNEUMOVAX) 2016-10-10 00:00:00 Completed [facility] Influenza Virus Vaccine Quad IM 3+ YRS 2016-10-10 00:00:00 Completed [facility] Pneumococcal Polysaccharide, PPSV23 (PNEUMOVAX) 2016-10-10 00:00:00 Completed [facility] Influenza Virus Vaccine Quad IM 3+ YRS 2016-10-10 00:00:00 Completed [facility] Pneumococcal Polysaccharide, PPSV23 (PNEUMOVAX) 2016-10-10 00:00:00 Completed [facility] Influenza Virus Vaccine Quad IM 3+ YRS 2016-10-10 00:00:00 Completed [facility] Pneumococcal Polysaccharide, PPSV23 (PNEUMOVAX) 2016-10-10 00:00:00 Completed [facility] Influenza Virus Vaccine Quad IM 3+ YRS 2016-10-10 00:00:00 Completed [facility] Pneumococcal Polysaccharide, PPSV23 (PNEUMOVAX) 2016-10-10 00:00:00 Completed [facility] Influenza Virus Vaccine Quad IM 3+ YRS 2016-10-10 00:00:00 Completed [facility] Pneumococcal Polysaccharide, PPSV23 (PNEUMOVAX) 2016-10-10 00:00:00 Completed [facility] Influenza Virus Vaccine Quad IM 3+ YRS 2016-10-10 00:00:00 Completed [facility] Pneumococcal Polysaccharide, PPSV23 (PNEUMOVAX) 2016-10-10 00:00:00 Completed [facility] Influenza Virus Vaccine Quad IM 3+ YRS 2016-10-10 00:00:00 Completed [facility] Pneumococcal Polysaccharide, PPSV23 (PNEUMOVAX) 2016-10-10 00:00:00 Completed [facility] Influenza Virus Vaccine Quad IM 3+ YRS 2016-10-10 00:00:00 Completed [facility] Pneumococcal Polysaccharide, PPSV23 (PNEUMOVAX) 2016-10-10 00:00:00 Completed [facility] Influenza Virus Vaccine Quad IM 3+ YRS 2016-10-10 00:00:00 Completed [facility] Pneumococcal Polysaccharide, PPSV23 (PNEUMOVAX) 2016-10-10 00:00:00 Completed [facility] Influenza Virus Vaccine Quad IM 3+ YRS 2016-10-10 00:00:00 Completed [facility] Pneumococcal Polysaccharide, PPSV23 (PNEUMOVAX) 2016-10-10 00:00:00 Completed [facility] Influenza Virus Vaccine Quad IM 3+ YRS 2016-10-10 00:00:00 Completed [facility] Pneumococcal Polysaccharide, PPSV23 (PNEUMOVAX) 2016-10-10 00:00:00 Completed [facility] Influenza Virus Vaccine Quad IM 3+ YRS 2016-10-10 00:00:00 Completed [facility] Pneumococcal Polysaccharide, PPSV23 (PNEUMOVAX) 2016-10-10 00:00:00 Completed [facility] Influenza Virus Vaccine Quad IM 3+ YRS 2016-10-10 00:00:00 Completed [facility] Pneumococcal Polysaccharide, PPSV23 (PNEUMOVAX) 2016-10-10 00:00:00 Completed [facility] Influenza Virus Vaccine Quad IM 3+ YRS 2016-10-10 00:00:00 Completed [facility] Pneumococcal Polysaccharide, PPSV23 (PNEUMOVAX) 2016-10-10 00:00:00 Completed [facility] Influenza Virus Vaccine Quad IM 3+ YRS 2016-10-10 00:00:00 Completed [facility] Pneumococcal Polysaccharide, PPSV23 (PNEUMOVAX) 2016-10-10 00:00:00 Completed [facility] Influenza Virus Vaccine Quad IM 3+ YRS 2016-10-10 00:00:00 Completed [facility] Pneumococcal Polysaccharide, PPSV23 (PNEUMOVAX) 2016-10-10 00:00:00 Completed [facility] Influenza Virus Vaccine Quad IM 3+ YRS 2016-10-10 00:00:00 Completed [facility] Pneumococcal Polysaccharide, PPSV23 (PNEUMOVAX) 2016-10-10 00:00:00 Completed [facility] Influenza Virus Vaccine Quad IM 3+ YRS 2016-10-10 00:00:00 Completed [facility] Pneumococcal Polysaccharide, PPSV23 (PNEUMOVAX) 2016-10-10 00:00:00 Completed [facility] Influenza Virus Vaccine Quad IM 3+ YRS 2016-10-10 00:00:00 Completed [facility] Pneumococcal Polysaccharide, PPSV23 (PNEUMOVAX) 2016-10-10 00:00:00 Completed [facility] Influenza Virus Vaccine Quad IM 3+ YRS 2016-10-10 00:00:00 Completed [facility] Pneumococcal Polysaccharide, PPSV23 (PNEUMOVAX) 2016-10-10 00:00:00 Completed [facility] Influenza Virus Vaccine Quad IM 3+ YRS 2016-10-10 00:00:00 Completed [facility] Pneumococcal Polysaccharide, PPSV23 (PNEUMOVAX) 2016-10-10 00:00:00 Completed [facility] Influenza Virus Vaccine Quad IM 3+ YRS 2016-10-10 00:00:00 Completed [facility] Pneumococcal Polysaccharide, PPSV23 (PNEUMOVAX) 2016-10-10 00:00:00 Completed [facility] Influenza Virus Vaccine Quad IM 3+ YRS 2016-10-10 00:00:00 Completed [facility] Pneumococcal Polysaccharide, PPSV23 (PNEUMOVAX) 2016-10-10 00:00:00 Completed [facility] Influenza Virus Vaccine Quad IM 3+ YRS 2016-10-10 00:00:00 Completed [facility] Pneumococcal Polysaccharide, PPSV23 (PNEUMOVAX) 2016-10-10 00:00:00 Completed [facility] Influenza Virus Vaccine Quad IM 3+ YRS 2016-10-10 00:00:00 Completed [facility] Pneumococcal Polysaccharide, PPSV23 (PNEUMOVAX) 2016-10-10 00:00:00 Completed [facility] Influenza Virus Vaccine Quad IM 3+ YRS 2016-10-10 00:00:00 Completed [facility] Pneumococcal Polysaccharide, PPSV23 (PNEUMOVAX) 2016-10-10 00:00:00 Completed [facility] Influenza Virus Vaccine Quad IM 3+ YRS 2016-10-10 00:00:00 Completed [facility] Pneumococcal Polysaccharide, PPSV23 (PNEUMOVAX) 2016-10-10 00:00:00 Completed [facility] Influenza Virus Vaccine Quad IM 3+ YRS 2016-10-10 00:00:00 Completed [facility] Pneumococcal Polysaccharide, PPSV23 (PNEUMOVAX) 2016-10-10 00:00:00 Completed [facility] Influenza Virus Vaccine Quad IM 3+ YRS 2016-10-10 00:00:00 Completed [facility] Pneumococcal Polysaccharide, PPSV23 (PNEUMOVAX) 2016-10-10 00:00:00 Completed [facility] Influenza Virus Vaccine Quad IM 3+ YRS 2016-10-10 00:00:00 Completed [facility] Pneumococcal Polysaccharide, PPSV23 (PNEUMOVAX) 2016-10-10 00:00:00 Completed [facility] Influenza Virus Vaccine Quad IM 3+ YRS 2016-10-10 00:00:00 Completed [facility] Pneumococcal Polysaccharide, PPSV23 (PNEUMOVAX) 2016-10-10 00:00:00 Completed [facility] Influenza Virus Vaccine Quad IM 3+ YRS 2016-10-10 00:00:00 Completed [facility] Pneumococcal Polysaccharide, PPSV23 (PNEUMOVAX) 2016-10-10 00:00:00 Completed [facility] Influenza Virus Vaccine Quad IM 3+ YRS 2016-10-10 00:00:00 Completed [facility] Pneumococcal Polysaccharide, PPSV23 (PNEUMOVAX) 2016-10-10 00:00:00 Completed [facility] Influenza Virus Vaccine Quad IM 3+ YRS 2016-10-10 00:00:00 Completed [facility] Pneumococcal Polysaccharide, PPSV23 (PNEUMOVAX) 2016-10-10 00:00:00 Completed [facility] Influenza Virus Vaccine Quad IM 3+ YRS 2016-10-10 00:00:00 Completed [facility] Pneumococcal Polysaccharide, PPSV23 (PNEUMOVAX) 2016-10-10 00:00:00 Completed [facility] Influenza Virus Vaccine Quad IM 3+ YRS 2016-10-10 00:00:00 Completed [facility] Pneumococcal Polysaccharide, PPSV23 (PNEUMOVAX) 2016-10-10 00:00:00 Completed [facility] Influenza Virus Vaccine Quad IM 3+ YRS 2016-10-10 00:00:00 Completed [facility] Pneumococcal Polysaccharide, PPSV23 (PNEUMOVAX) 2016-10-10 00:00:00 Completed [facility] Influenza Virus Vaccine Quad IM 3+ YRS 2016-10-10 00:00:00 Completed [facility] Pneumococcal Polysaccharide, PPSV23 (PNEUMOVAX) 2016-10-10 00:00:00 Completed [facility] Influenza Virus Vaccine Quad IM 3+ YRS 2016-10-10 00:00:00 Completed [facility] Pneumococcal Polysaccharide, PPSV23 (PNEUMOVAX) 2016-10-10 00:00:00 Completed [facility] Influenza Virus Vaccine Quad IM 3+ YRS 2016-10-10 00:00:00 Completed [facility] Pneumococcal Polysaccharide, PPSV23 (PNEUMOVAX) 2016-10-10 00:00:00 Completed [facility] Influenza Virus Vaccine Quad IM 3+ YRS 2016-10-10 00:00:00 Completed [facility] Pneumococcal Polysaccharide, PPSV23 (PNEUMOVAX) 2016-10-10 00:00:00 Completed [facility] Influenza Virus Vaccine Quad IM 3+ YRS 2016-10-10 00:00:00 Completed [facility] Pneumococcal Polysaccharide, PPSV23 (PNEUMOVAX) 2016-10-10 00:00:00 Completed [facility] Influenza Virus Vaccine Quad IM 3+ YRS 2016-10-10 00:00:00 Completed [facility] Pneumococcal Polysaccharide, PPSV23 (PNEUMOVAX) 2016-10-10 00:00:00 Completed [facility] Influenza Virus Vaccine Quad IM 3+ YRS 2016-10-10 00:00:00 Completed [facility] Pneumococcal Polysaccharide, PPSV23 (PNEUMOVAX) 2016-10-10 00:00:00 Completed [facility] Influenza Virus Vaccine Quad IM 3+ YRS 2016-10-10 00:00:00 Completed [facility] Pneumococcal Polysaccharide, PPSV23 (PNEUMOVAX) 2016-10-10 00:00:00 Completed [facility] Influenza Virus Vaccine Quad IM 3+ YRS 2016-10-10 00:00:00 Completed [facility] Pneumococcal Polysaccharide, PPSV23 (PNEUMOVAX) 2016-10-10 00:00:00 Completed [facility] Influenza Virus Vaccine Quad IM 3+ YRS 2016-10-10 00:00:00 Completed [facility] Pneumococcal Polysaccharide, PPSV23 (PNEUMOVAX) 2016-10-10 00:00:00 Completed [facility] Influenza Virus Vaccine Quad IM 3+ YRS 2016-10-10 00:00:00 Completed [facility] Pneumococcal Polysaccharide, PPSV23 (PNEUMOVAX) 2016-10-10 00:00:00 Completed [facility] Influenza Virus Vaccine Quad IM 3+ YRS 2016-10-10 00:00:00 Completed [facility] Pneumococcal Polysaccharide, PPSV23 (PNEUMOVAX) 2016-10-10 00:00:00 Completed [facility] Influenza Virus Vaccine Quad IM 3+ YRS 2016-10-10 00:00:00 Completed [facility] Pneumococcal Polysaccharide, PPSV23 (PNEUMOVAX) 2016-10-10 00:00:00 Completed [facility] Influenza Virus Vaccine Quad IM 3+ YRS 2016-10-10 00:00:00 Completed [facility] Pneumococcal Polysaccharide, PPSV23 (PNEUMOVAX) 2016-10-10 00:00:00 Completed [facility] Influenza Virus Vaccine Quad IM 3+ YRS 2016-10-10 00:00:00 Completed [facility] Pneumococcal Polysaccharide, PPSV23 (PNEUMOVAX) 2016-10-10 00:00:00 Completed [facility] Influenza Virus Vaccine Quad IM 3+ YRS 2016-10-10 00:00:00 Completed [facility] Pneumococcal Polysaccharide, PPSV23 (PNEUMOVAX) 2016-10-10 00:00:00 Completed [facility] Influenza Virus Vaccine Quad IM 3+ YRS 2016-10-10 00:00:00 Completed [facility] Pneumococcal Polysaccharide, PPSV23 (PNEUMOVAX) 2016-10-10 00:00:00 Completed [facility] Influenza Virus Vaccine Quad IM 3+ YRS 2016-10-10 00:00:00 Completed [facility] Pneumococcal Polysaccharide, PPSV23 (PNEUMOVAX) 2016-10-10 00:00:00 Completed [facility] Influenza Virus Vaccine Quad IM 3+ YRS 2016-10-10 00:00:00 Completed [facility] Pneumococcal Polysaccharide, PPSV23 (PNEUMOVAX) 2016-10-10 00:00:00 Completed [facility] Influenza Virus Vaccine Quad IM 3+ YRS 2016-10-10 00:00:00 Completed [facility] Pneumococcal Polysaccharide, PPSV23 (PNEUMOVAX) 2016-10-10 00:00:00 Completed [facility] Influenza Virus Vaccine Quad IM 3+ YRS 2016-10-10 00:00:00 Completed [facility] Pneumococcal Polysaccharide, PPSV23 (PNEUMOVAX) 2016-10-10 00:00:00 Completed [facility] Influenza Virus Vaccine Quad IM 3+ YRS 2016-10-10 00:00:00 Completed [facility] Pneumococcal Polysaccharide, PPSV23 (PNEUMOVAX) 2016-10-10 00:00:00 Completed [facility] Influenza Virus Vaccine Quad IM 3+ YRS 2016-10-10 00:00:00 Completed [facility] Pneumococcal Polysaccharide, PPSV23 (PNEUMOVAX) 2016-10-10 00:00:00 Completed [facility] Influenza Virus Vaccine Quad IM 3+ YRS 2016-10-10 00:00:00 Completed [facility] Pneumococcal Polysaccharide, PPSV23 (PNEUMOVAX) 2016-10-10 00:00:00 Completed [facility] Influenza Virus Vaccine Quad IM 3+ YRS 2016-10-10 00:00:00 Completed [facility] Pneumococcal Polysaccharide, PPSV23 (PNEUMOVAX) 2016-10-10 00:00:00 Completed [facility] Influenza Virus Vaccine Quad IM 3+ YRS 2016-10-10 00:00:00 Completed [facility] Pneumococcal Polysaccharide, PPSV23 (PNEUMOVAX) 2016-10-10 00:00:00 Completed [facility] Influenza Virus Vaccine Quad IM 3+ YRS 2016-10-10 00:00:00 Completed [facility] Pneumococcal Polysaccharide, PPSV23 (PNEUMOVAX) 2016-10-10 00:00:00 Completed [facility] Influenza Virus Vaccine Quad IM 3+ YRS 2016-10-10 00:00:00 Completed [facility] Pneumococcal Polysaccharide, PPSV23 (PNEUMOVAX) 2016-10-10 00:00:00 Completed [facility] Influenza Virus Vaccine Quad IM 3+ YRS 2016-10-10 00:00:00 Completed [facility] Pneumococcal Polysaccharide, PPSV23 (PNEUMOVAX) 2016-10-10 00:00:00 Completed [facility] Influenza Virus Vaccine Quad IM 3+ YRS 2016-10-10 00:00:00 Completed [facility] Pneumococcal Polysaccharide, PPSV23 (PNEUMOVAX) 2016-10-10 00:00:00 Completed [facility] Influenza Virus Vaccine Quad IM 3+ YRS 2016-10-10 00:00:00 Completed [facility] Pneumococcal Polysaccharide, PPSV23 (PNEUMOVAX) 2016-10-10 00:00:00 Completed [facility] Influenza Virus Vaccine Quad IM 3+ YRS 2016-10-10 00:00:00 Completed [facility] Pneumococcal Polysaccharide, PPSV23 (PNEUMOVAX) 2016-10-10 00:00:00 Completed [facility] Influenza Virus Vaccine Quad IM 3+ YRS 2016-10-10 00:00:00 Completed [facility] Pneumococcal Polysaccharide, PPSV23 (PNEUMOVAX) 2016-10-10 00:00:00 Completed [facility] Influenza Virus Vaccine Quad IM 3+ YRS 2016-10-10 00:00:00 Completed [facility] Pneumococcal Polysaccharide, PPSV23 (PNEUMOVAX) 2016-10-10 00:00:00 Completed [facility] Influenza Virus Vaccine Quad IM 3+ YRS 2016-10-10 00:00:00 Completed [facility] Pneumococcal Polysaccharide, PPSV23 (PNEUMOVAX) 2016-10-10 00:00:00 Completed [facility] Influenza Virus Vaccine Quad IM 3+ YRS 2016-10-10 00:00:00 Completed [facility] Pneumococcal Polysaccharide, PPSV23 (PNEUMOVAX) 2016-10-10 00:00:00 Completed [facility] Influenza Virus Vaccine Quad IM 3+ YRS 2016-10-10 00:00:00 Completed [facility] Pneumococcal Polysaccharide, PPSV23 (PNEUMOVAX) 2016-10-10 00:00:00 Completed [facility] Influenza Virus Vaccine Quad IM 3+ YRS 2016-10-10 00:00:00 Completed [facility] Pneumococcal Polysaccharide, PPSV23 (PNEUMOVAX) 2016-10-10 00:00:00 Completed [facility] Influenza Virus Vaccine Quad IM 3+ YRS 2016-10-10 00:00:00 Completed [facility] Pneumococcal Polysaccharide, PPSV23 (PNEUMOVAX) 2016-10-10 00:00:00 Completed [facility] Influenza Virus Vaccine Quad IM 3+ YRS 2016-10-10 00:00:00 Completed [facility] Pneumococcal Polysaccharide, PPSV23 (PNEUMOVAX) 2016-10-10 00:00:00 Completed [facility] Influenza Virus Vaccine Quad IM 3+ YRS 2016-10-10 00:00:00 Completed [facility] Pneumococcal Polysaccharide, PPSV23 (PNEUMOVAX) 2016-10-10 00:00:00 Completed [facility] Influenza Virus Vaccine Quad IM 3+ YRS 2016-10-10 00:00:00 Completed [facility] Pneumococcal Polysaccharide, PPSV23 (PNEUMOVAX) 2016-10-10 00:00:00 Completed [facility] Influenza Virus Vaccine Quad IM 3+ YRS 2016-10-10 00:00:00 Completed [facility] Pneumococcal Polysaccharide, PPSV23 (PNEUMOVAX) 2016-10-10 00:00:00 Completed [facility] Influenza Virus Vaccine Quad IM 3+ YRS 2016-10-10 00:00:00 Completed [facility] Pneumococcal Polysaccharide, PPSV23 (PNEUMOVAX) 2016-10-10 00:00:00 Completed [facility] Influenza Virus Vaccine Quad IM 3+ YRS 2016-10-10 00:00:00 Completed [facility] Pneumococcal Polysaccharide, PPSV23 (PNEUMOVAX) 2016-10-10 00:00:00 Completed [facility] Influenza Virus Vaccine Quad IM 3+ YRS 2016-10-10 00:00:00 Completed [facility] Pneumococcal Polysaccharide, PPSV23 (PNEUMOVAX) 2016-10-10 00:00:00 Completed [facility] Influenza Virus Vaccine Quad IM 3+ YRS 2016-10-10 00:00:00 Completed [facility] Pneumococcal Polysaccharide, PPSV23 (PNEUMOVAX) 2016-10-10 00:00:00 Completed [facility] Influenza Virus Vaccine Quad IM 3+ YRS 2016-10-10 00:00:00 Completed [facility] Pneumococcal Polysaccharide, PPSV23 (PNEUMOVAX) 2016-10-10 00:00:00 Completed [facility] Influenza Virus Vaccine Quad IM 3+ YRS 2016-10-10 00:00:00 Completed [facility] Pneumococcal Polysaccharide, PPSV23 (PNEUMOVAX) 2016-10-10 00:00:00 Completed [facility] Influenza Virus Vaccine Quad IM 3+ YRS 2016-10-10 00:00:00 Completed [facility] Pneumococcal Polysaccharide, PPSV23 (PNEUMOVAX) 2016-10-10 00:00:00 Completed [facility] Influenza Virus Vaccine Quad IM 3+ YRS 2016-10-10 00:00:00 Completed [facility] Pneumococcal Polysaccharide, PPSV23 (PNEUMOVAX) 2016-10-10 00:00:00 Completed [facility] Influenza Virus Vaccine Quad IM 3+ YRS 2016-10-10 00:00:00 Completed [facility] Pneumococcal Polysaccharide, PPSV23 (PNEUMOVAX) 2016-10-10 00:00:00 Completed [facility] Influenza Virus Vaccine Quad IM 3+ YRS 2016-10-10 00:00:00 Completed [facility] Pneumococcal Polysaccharide, PPSV23 (PNEUMOVAX) 2016-10-10 00:00:00 Completed [facility] Influenza Virus Vaccine Quad IM 3+ YRS 2016-10-10 00:00:00 Completed [facility] Pneumococcal Polysaccharide, PPSV23 (PNEUMOVAX) 2016-10-10 00:00:00 Completed [facility] Influenza Virus Vaccine Quad IM 3+ YRS 2016-10-10 00:00:00 Completed [facility] Pneumococcal Polysaccharide, PPSV23 (PNEUMOVAX) 2016-10-10 00:00:00 Completed [facility] Influenza Virus Vaccine Quad IM 3+ YRS 2016-10-10 00:00:00 Completed [facility] Pneumococcal Polysaccharide, PPSV23 (PNEUMOVAX) 2016-10-10 00:00:00 Completed [facility] Influenza Virus Vaccine Quad IM 3+ YRS 2016-10-10 00:00:00 Completed [facility] Pneumococcal Polysaccharide, PPSV23 (PNEUMOVAX) 2016-10-10 00:00:00 Completed [facility] Influenza Virus Vaccine Quad IM 3+ YRS 2016-10-10 00:00:00 Completed [facility] Pneumococcal Polysaccharide, PPSV23 (PNEUMOVAX) 2016-10-10 00:00:00 Completed [facility] Influenza Virus Vaccine Quad IM 3+ YRS 2016-10-10 00:00:00 Completed [facility] Pneumococcal Polysaccharide, PPSV23 (PNEUMOVAX) 2016-10-10 00:00:00 Completed [facility] Influenza Virus Vaccine Quad IM 3+ YRS 2016-10-10 00:00:00 Completed [facility] Pneumococcal Polysaccharide, PPSV23 (PNEUMOVAX) 2016-10-10 00:00:00 Completed [facility] Influenza Virus Vaccine Quad IM 3+ YRS 2016-10-10 00:00:00 Completed [facility] Pneumococcal Polysaccharide, PPSV23 (PNEUMOVAX) 2016-10-10 00:00:00 Completed [facility] Influenza Virus Vaccine Quad IM 3+ YRS 2016-10-10 00:00:00 Completed [facility] Pneumococcal Polysaccharide, PPSV23 (PNEUMOVAX) 2016-10-10 00:00:00 Completed [facility] Influenza Virus Vaccine Quad IM 3+ YRS 2016-10-10 00:00:00 Completed [facility] Pneumococcal Polysaccharide, PPSV23 (PNEUMOVAX) 2016-10-10 00:00:00 Completed [facility] Influenza Virus Vaccine Quad IM 3+ YRS 2016-10-10 00:00:00 Completed [facility] Pneumococcal Polysaccharide, PPSV23 (PNEUMOVAX) 2016-10-10 00:00:00 Completed [facility] Influenza Virus Vaccine Quad IM 3+ YRS 2016-10-10 00:00:00 Completed [facility] Pneumococcal Polysaccharide, PPSV23 (PNEUMOVAX) 2016-10-10 00:00:00 Completed [facility] Influenza Virus Vaccine Quad IM 3+ YRS 2016-10-10 00:00:00 Completed [facility] Pneumococcal Polysaccharide, PPSV23 (PNEUMOVAX) 2016-10-10 00:00:00 Completed [facility] Influenza Virus Vaccine Quad IM 3+ YRS 2016-10-10 00:00:00 Completed [facility] Pneumococcal Polysaccharide, PPSV23 (PNEUMOVAX) 2016-10-10 00:00:00 Completed [facility] Influenza Virus Vaccine Quad IM 3+ YRS 2016-10-10 00:00:00 Completed [facility] Pneumococcal Polysaccharide, PPSV23 (PNEUMOVAX) 2016-10-10 00:00:00 Completed [facility] Influenza Virus Vaccine Quad IM 3+ YRS 2016-10-10 00:00:00 Completed [facility] Pneumococcal Polysaccharide, PPSV23 (PNEUMOVAX) 2016-10-10 00:00:00 Completed [facility] Influenza Virus Vaccine Quad IM 3+ YRS 2016-10-10 00:00:00 Completed [facility] Pneumococcal Polysaccharide, PPSV23 (PNEUMOVAX) 2016-10-10 00:00:00 Completed [facility] Influenza Virus Vaccine Quad IM 3+ YRS 2016-10-10 00:00:00 Completed [facility] Pneumococcal Polysaccharide, PPSV23 (PNEUMOVAX) 2016-10-10 00:00:00 Completed [facility] Influenza Virus Vaccine Quad IM 3+ YRS Unknown Completed [facility] Pneumococcal Polysaccharide, PPSV23 (PNEUMOVAX) Unknown [facility] Quad .5 mL IM 6+ MO (FLUZONE/FLULAVAL/F LUARIX) Unknown Completed [facility] Influenza Virus Vaccine Quad IM 3+ YRS Unknown Completed [facility] Pneumococcal Polysaccharide, PPSV23 (PNEUMOVAX) Unknown Com[facility] Influenza Virus Vaccine Quad .5 mL IM 6+ MO (FLUZONE/FLULAVAL/F LUARIX) Unknown Completed [facility] Vital Signs Vital Name Observation Time Observation Value Comments S ource Systolic blood pressure 2023-01-15 20:05:00 163 mm[Hg] [facility] Diastolic blood pressure 2023-01-15 20:05:00 100 mm[Hg] [facility] Heart rate 2023-01-15 19:43:00 93 /min [facility] Body temperature 2023-01-15 19:43:00 36.56 [facility] Respiratory rate 2023-01-15 19:43:00 20 /min [facility] Body height 2023-01-15 19:43:00 157.5 cm [facility] Body weight 2023-01-15 19:43:00 50.077 kg [facility] BMI 2023-01-15 19:43:00 20.19 kg/m2 [facility] Oxygen saturation in Arterial blood by Pulse oximetry 2023-01-15 19:43:00 98 /min 4L O2 [facility] Systolic blood pressure 2022-07-24 11:00:00 144 mm[Hg] [facility] Diastolic blood pressure 2022-07-24 11:00:00 95 mm[Hg] [facility] Heart rate 2022-07-24 11:00:00 81 /min [facility] Respiratory rate 2022-07-24 11:00:00 18 /min [facility] Oxygen saturation in Arterial blood by Pulse oximetry 2022-07-24 11:00:00 97 /min [facility] Body temperature 2022-07-24 05:25:00 36.06 Barbara [facility] Body height 2022-07-24 05:25:00 147.3 cm [facility] Body weight 2022-07-24 05:25:00 57.153 kg [facility] BMI 2022-07-24 05:25:00 26.33 kg/m2 [facility] [facility] Systolic blood pressure 2022-07-22 12:05:00 128 mm[Hg] [facility] Diastolic blood pressure 2022-07-22 12:05:00 75 mm[Hg] [facility] Respiratory rate 2022-07-22 12:05:00 13 /min [facility] Oxygen saturation in Arterial blood by Pulse oximetry 2022-07-22 12:05:00 96 /min [facility] Heart rate 2022-07-22 11:00:00 119 /min [facility] Body temperature 2022-07-22 08:59:00 36.83 Barbara [facility] Body height 2022-07-22 08:59:00 147.3 cm [facility] Body weight 2022-07-22 08:59:00 57.153 kg [facility] BMI 2022-07-22 08:59:00 26.33 kg/m2 [facility] Systolic blood pressure 2021-06-15 19:28:00 119 mm[Hg] [facility] Diastolic blood pressure 2021-06-15 19:28:00 71 mm[Hg] [facility] Heart rate 2021-06-15 19:28:00 103 /min [facility] Body temperature 2021-06-15 19:28:00 36.89 Barbara [facility] Respiratory rate 2021-06-15 19:28:00 20 /min [facility] Body height 2021-06-15 19:28:00 158.1 cm [facility] Body weight 2021-06-15 19:28:00 55.929 kg [facility] BMI 2021-06-15 19:28:00 22.37 kg/m2 [facility] Oxygen saturation in Arterial blood by Pulse oximetry 2021-06-15 19:28:00 99 /min [facility] Systolic blood pressure 2021-06-15 19:28:00 119 mm[Hg] [facility] Diastolic blood pressure 2021-06-15 19:28:00 71 mm[Hg] [facility] Heart rate 2021-06-15 19:28:00 103 /min [facility] Body temperature 2021-06-15 19:28:00 36.89 Barbara [facility] Respiratory rate 2021-06-15 19:28:00 20 /min [facility] Body height 2021-06-15 19:28:00 158.1 cm [facility] Body weight 2021-06-15 19:28:00 55.929 kg [facility] BMI 2021-06-15 19:28:00 22.37 kg/m2 [facility] Oxygen saturation in Arterial blood by Pulse oximetry 2021-06-15 19:28:00 99 /min [facility] Respiratory rate 2020-12-09 16:54:00 20 /min [facility] Oxygen saturation in Arterial blood by Pulse oximetry 2020-12-09 16:54:00 97 /min [facility] Systolic blood pressure 2020-12-09 16:00:00 133 mm[Hg] [facility] Diastolic blood pressure 2020-12-09 16:00:00 80 mm[Hg] [facility] Heart rate 2020-12-09 16:00:00 109 /min [facility] Body temperature 2020-12-09 16:00:00 37.06 Barbara [facility] Body weight 2020-12-09 09:00:00 57.471 kg [facility] BMI 2020-12-09 09:00:00 23.17 kg/m2 [facility] Systolic blood pressure 2020-08-09 20:42:00 136 mm[Hg] [facility] Diastolic blood pressure 2020-08-09 20:42:00 73 mm[Hg] [facility] Heart rate 2020-08-09 20:42:00 100 /min [facility] Body temperature 2020-08-09 20:42:00 36.33 Barbara [facility] Respiratory rate 2020-08-09 20:42:00 18 /min [facility] Body height 2020-08-09 20:42:00 157.5 cm [facility] Body weight 2020-08-09 20:42:00 57.153 kg [facility] BMI 2020-08-09 20:42:00 23.05 kg/m2 [facility] Oxygen saturation in Arterial blood by Pulse oximetry 2020-08-09 20:42:00 98 /min [facility] Systolic blood pressure 2020-08-04 17:30:00 160 mm[Hg] [facility] Diastolic blood pressure 2020-08-04 17:30:00 97 mm[Hg] [facility] Heart rate 2020-08-04 17:30:00 96 /min [facility] Respiratory rate 2020-08-04 17:30:00 18 /min [facility] Oxygen saturation in Arterial blood by Pulse oximetry 2020-08-04 17:30:00 99 /min [facility] Body temperature 2020-08-04 16:24:00 37.83 Barbara [facility] Body height 2020-08-04 16:24:00 157.5 cm [facility] Body weight 2020-08-04 16:24:00 57.153 kg [facility] BMI 2020-08-04 16:24:00 23.05 kg/m2 [facility] Respiratory rate 2020-04-30 16:19:00 20 /min [facility] Oxygen saturation in Arterial blood by Pulse oximetry 2020-04-30 16:19:00 96 /min [facility] Systolic blood pressure 2020-04-30 13:00:00 140 mm[Hg] [facility] Diastolic blood pressure 2020-04-30 13:00:00 84 mm[Hg] [facility] Heart rate 2020-04-30 13:00:00 109 /min [facility] Body temperature 2020-04-30 13:00:00 37.11 Barbara [facility] Body weight 2020-04-28 09:00:00 56.246 kg [facility] BMI 2020-04-28 09:00:00 22.68 kg/m2 [facility] Body height 2020-04-27 16:34:00 157.5 cm [facility] Systolic blood pressure 2020-04-07 16:27:00 135 mm[Hg] [facility] Diastolic blood pressure 2020-04-07 16:27:00 81 mm[Hg] [facility] Heart rate 2020-04-07 16:27:00 112 /min [facility] Body temperature 2020-04-07 16:27:00 36.83 Barbara [facility] Respiratory rate 2020-04-07 16:27:00 18 /min [facility] Body height 2020-04-07 16:27:00 157.5 cm [facility] Body weight 2020-04-07 16:27:00 58.627 kg [facility] BMI 2020-04-07 16:27:00 23.64 kg/m2 [facility] Oxygen saturation in Arterial blood by Pulse oximetry 2020-04-07 16:27:00 99 /min [facility] Systolic blood pressure 2020-03-07 16:24:00 120 mm[Hg] [facility] Diastolic blood pressure 2020-03-07 16:24:00 75 mm[Hg] [facility] Heart rate 2020-03-07 16:24:00 107 /min [facility] Body temperature 2020-03-07 16:24:00 36.5 Barbara [facility] Respiratory rate 2020-03-07 16:24:00 20 /min [facility] Oxygen saturation in Arterial blood by Pulse oximetry 2020-03-07 16:24:00 90 /min [facility] Body weight 2020-03-07 10:00:00 58.968 kg [facility] BMI 2020-03-07 10:00:00 23.78 kg/m2 [facility] Body height 2020-03-05 01:28:00 157.5 cm [facility] Respiratory rate 2020-02-29 18:42:00 18 /min [facility] Oxygen saturation in Arterial blood by Pulse oximetry 2020-02-29 18:42:00 94 /min [facility] Systolic blood pressure 2020-02-29 17:35:00 123 mm[Hg] [facility] Diastolic blood pressure 2020-02-29 17:35:00 93 mm[Hg] [facility] Heart rate 2020-02-29 17:35:00 107 /min [facility] Body temperature 2020-02-29 17:35:00 36.94 Barbara [facility] Body weight 2020-02-29 13:25:00 55.475 kg [facility] BMI 2020-02-29 13:25:00 22.37 kg/m2 [facility] Body height 2020-02-25 02:05:00 157.5 cm [facility] Systolic blood pressure 2020-02-13 20:36:00 96 mm[Hg] [facility] Diastolic blood pressure 2020-02-13 20:36:00 79 mm[Hg] [facility] Heart rate 2020-02-13 20:36:00 80 /min [facility] Body temperature 2020-02-13 20:36:00 36.17 Barbara [facility] Respiratory rate 2020-02-13 20:36:00 20 /min [facility] Oxygen saturation in Arterial blood by Pulse oximetry 2020-02-13 20:36:00 95 /min [facility] Body weight 2020-02-13 11:00:00 58.968 kg [facility] BMI 2020-02-13 11:00:00 23.78 kg/m2 [facility] Body height 2020-02-09 23:55:00 157.5 cm [facility] Respiratory rate 2020-02-02 16:23:00 20 /min [facility] Oxygen saturation in Arterial blood by Pulse oximetry 2020-02-02 16:23:00 98 /min [facility] Systolic blood pressure 2020-02-02 15:45:00 100 mm[Hg] [facility] Diastolic blood pressure 2020-02-02 15:45:00 67 mm[Hg] [facility] Heart rate 2020-02-02 15:45:00 88 /min [facility] Body temperature 2020-02-02 15:45:00 36.56 Barbara [facility] Body weight 2020-01-30 09:00:00 51.982 kg [facility] BMI 2020-01-30 09:00:00 20.96 kg/m2 [facility] Body height 2020-01-29 08:38:00 157.5 cm [facility] Systolic blood pressure 2019-10-14 17:46:00 130 mm[Hg] [facility] Diastolic blood pressure 2019-10-14 17:46:00 76 mm[Hg] [facility] Heart rate 2019-10-14 17:46:00 106 /min [facility] Body temperature 2019-10-14 17:46:00 36.94 Barbara [facility] Respiratory rate 2019-10-14 17:46:00 18 /min [facility] Body height 2019-10-14 17:46:00 157.5 cm [facility] Body weight 2019-10-14 17:46:00 56.898 kg [facility] BMI 2019-10-14 17:46:00 22.94 kg/m2 [facility] Oxygen saturation in Arterial blood by Pulse oximetry 2019-10-14 17:46:00 97 /min [facility] Systolic blood pressure 2019-10-07 18:00:00 99 mm[Hg] [facility] Diastolic blood pressure 2019-10-07 18:00:00 55 mm[Hg] [facility] Heart rate 2019-10-07 18:00:00 66 /min [facility] Body temperature 2019-10-07 18:00:00 37.28 Barbara [facility] Respiratory rate 2019-10-07 18:00:00 16 /min [facility] Oxygen saturation in Arterial blood by Pulse oximetry 2019-10-07 18:00:00 96 /min [facility] Body height 2019-10-06 03:43:00 157.5 cm [facility] Body weight 2019-10-06 03:43:00 53.978 kg [facility] BMI 2019-10-06 03:43:00 21.77 kg/m2 [facility] Systolic blood pressure 2019-06-09 19:07:00 130 mm[Hg] [facility] Diastolic blood pressure 2019-06-09 19:07:00 70 mm[Hg] [facility] Heart rate 2019-06-09 19:07:00 96 /min [facility] Body temperature 2019-06-09 19:07:00 37.06 Barbara [facility] Respiratory rate 2019-06-09 19:07:00 18 /min [facility] Body height 2019-06-09 19:07:00 157.5 cm [facility] Body weight 2019-06-09 19:07:00 56.444 kg [facility] BMI 2019-06-09 19:07:00 22.76 kg/m2 [facility] Oxygen saturation in Arterial blood by Pulse oximetry 2019-06-09 19:07:00 94 /min Boyd o f [facility] Procedures Procedure Date / Time Performed Performing Clinician Source ASSIGNMENT OF BENEFITS 2023-01-15 19:03:46 Jeni miramontes Unassigned, [place] [facility] CT CHEST PULMONARY ANGIOGRAM 2022-07-24 08:12:35 Yanni Jim [facility] AC PANEL 20 + LACTIC ACID 2022-07-24 07:25:00 Yanni Jim [facility] COMP. METABOLIC PANEL ([id number]) 2022-07-24 07:05:00 Yanni Jim [facility] CBC WITH DIFF 2022-07-24 06:19:00 Yanni Jim [facility] N-TERMINAL PRO-BNP 2022-07-24 06:19:00 Yanni Jim [facility] EMERGENCY DEPARTMENT DOCUMENTS 2022-07-23 05:01:00 Doctor Unassigned, [place] [facility] XR CHEST 1 VW 2022-07-22 11:01:00 Yanni Jim [facility] XR RIBS 3 VW LEFT 2022-07-22 11:01:00 Yanni Jim [facility] ASSIGNMENT OF BENEFITS 2021-06-15 19:19:18 Jeni miramontes Unassigned, [place] [facility] EXTERNAL PROVIDER RECORDS 2021-05-24 05:01:00 Do ctor Unassigned, [place] [facility] MAGNESIUM 2020-12-09 09:07:00 Raul Campos [facility] BASIC METABOLIC PANEL (NA, K, CL, CO2, GLUCOSE, BUN, CREATININE, CA) 2020-12-09 09:07:00 Cain [facility] CBC WITH DIFF 2020-12-09 09:07[facility]-12[facility]08 08[facility]47[facility] (NA, K, CL, CO2, GLUCOSE, BUN, CREATININE, CA) 2020-12-08 08:47:00 Cain [facility] CBC WITH DIFF 2020-12-08 08:47:[facility]. METABOLIC PANEL ([id number]) 2020-12-07 09:16:00 [facility] 2020-12-07 09:16[facility] ARTERIAL BLOOD GAS 2020-12-06 17:16:00 Kareem Sheikh [facility] ACUTE CARE ARTERIAL BLOOD GAS 2020-12-06 14:07:00 Cain [facility] ACUTE CARE ARTERIAL BLOOD GAS 2020-12-06 10:50:[facility] 2020-12-06 06:28:00 Yanni Jim [facility] ACUTE CARE ARTERIAL BLOOD GAS 2020-12-06 04:10:00 Yanni Jim [facility] XR CHEST 1 VW 2020-12-06 03:45:40 Yanni Jim [facility] MAGNESIUM 2020-12-06 03:36:00 Yanni Jim [facility] TROPONIN I 2020-12-06 03:36:00 Yanni Jim [facility] COMP. METABOLIC PANEL ([id number]) 2020-12-06 03:36:00 Yanni Jim [facility] CBC WITH DIFF 2020-12-06 03:36:00 Yanni Jim [facility] COVID-19 (ID NOW RAPID TESTING) 2020-12-06 03:36:00 Yanni Jim [facility] CT ABDOMEN PELVIS WO CONTRAST 2020-08-04 17:27:10 Singer [facility] URINALYSIS 2020-08-04 17:17:00 Singer [facility] COMP. METABOLIC PANEL ([id number]) 2020-08-04 17:00:00 Singer [facility] CBC WITH DIFF 2020-08-04 17:00:00 Singer [facility] HOME HEALTH - OTHER 2020-08-02 06:01:00 Doctor Mckenzie harden, [place] [facility] COMP. METABOLIC PANEL ([id number]) 2020-04-28 09:32:00 Kori [facility] CBC WITH DIFF 2020-04-28 09:32:00 Kori [facility] PNEUMOCOCCAL ANTIGEN 2020-04-28 01:52:00 Kori [facility] PROCALCITONIN 2020-04-28 01:49:00 Kori [facility] ACUTE CARE ARTERIAL BLOOD GAS 2020-04-28 01:46:00 Kori [facility] RESPIRATORY PANEL BY PCR 2020-04-28 01:45:00 Kori [facility] COVID-19 (PCR MOLECULAR TESTING) 2020-04-28 01:45:00 Kori [facility] AC ABG + LACTIC ACID 2020-04-27 22:57:00 Singer [facility] URINALYSIS 2020-04-27 20:07:00 Singer [facility] XR CHEST 1 VW 2020-04-27 17:26:37 [facility] TROPONIN I 2020-04-27 16:40:00 Singer [facility] COMP. METABOLIC PANEL ([id number]) 2020-04-27 16:40:00 Singer [facility] CBC WITH DIFF 2020-04-27 16:40:00 Mariscal, [facility] N-TERMINAL PRO-BNP 2020-04-27 16:40:00 Singer [facility] COVID-19 (ID NOW RAPID TESTING) 2020-04-27 16:40:00 Singer [facility] EMERGENCY DEPARTMENT DOCUMENTS 2020-04-27 05:01:00 Doctor Unassigned, [place] [facility] OTHER 2020-04-01 05:01:00 Doctor U nassigned, [place] [facility] 2020-03-23 05:01:00 Doctor U nassigned, [place] [facility] 2020-03-08 05:01:00 Doctor U nassigned, [place] [facility] BASIC METABOLIC PANEL (NA, K, CL, CO2, GLUCOSE, BUN, CREATININE, CA) 2020-03-05 17:54:00 Manisha [facility] CORTISOL AM 2020-03-05 17:53:00 Manisha Michael [facility] ACUTE CARE ARTERIAL BLOOD GAS 2020-03-05 13:49:00 [facility] 2020-03-05 09:55:00 Genoveva Ahn [facility] ACUTE CARE ARTERIAL BLOOD GAS 2020-03-05 07:30:00 [facility] TR[facility] 2020-03-05 05:50:00 Genoveva Ahn [facility] FREE T4 2020-03-05 05:50:00 K[facility]em [facility] THYROID STIMULATING HORMONE 2020-03-05 05:50:00 [facility] FREE T[facility] 2020-03-05 05:50:00 Kareem [facility] PROCALCITONIN 2020-03-05 05:50:00 Genoveva Ahn [facility] ACUTE CARE ARTERIAL BLOOD GAS 2020-03-05 01:34:00 Kareem Sheikh [facility] CRITICAL CARE 2020-03-04 23:14:49 Bianka Hernandez [facility] ADC / LCC - DRUG SCREEN TRIAGE 2020-03-04 23:09:00 Bianka Hernandez [facility] AC PANEL 20 + LACTIC ACID 2020-03-04 23:05:00 Bianka Hernandez [facility] POCT GLUCOSE (AUTOMATED) 2020-03-04 22:57:00 Philip Hernandez [facility] EKG-12 LEAD 2020-03-04 21:23:23 Bianka Hernandez [facility] XR CHEST 1 VW 2020-03-04 21:23:15 Bianka Hernandez [facility] COVID-19 (ID NOW RAPID TESTING) 2020-03-04 21:15:00 [facility] 2020-03-04 21:11:00 Bianka [facility] HEPATIC FUNCTION PANEL ([id number]) (ALB,T.PRO,BILI T,BU/BC,ALT,AST,ALK PHOS) 2020-03-04 21:11:00 Bianka Hernandez [facility] BASIC METABOLIC PANEL (NA, K, CL, CO2, GLUCOSE, BUN, CREATININE, CA) 2020-03-04 21:11:00 Bianka Hernandez [facility] CBC WITH DIFFERENTIAL 2020-03-04 21:11:00 Ulysses Hernandez [facility] PROTHROMBIN TIME / INR 2020-03-04 21:11:00 Zachary Hernandez [facility] ACTIVATED PARTIAL THRMPLAS LO 2020-03-04 21:11:00 [facility]-BNP 2020-03-04 21:11:00 Bianka Hernandez [facility] EKG-12 LEAD 2020-03-04 21:03:07 Bianka Hernandez [facility] HOME HEALTH 485 2020-03-03 05:01:00 Doctor Unass igned, [place] [facility] HOME HEALTH - OTHER 2020-03-02 05:01:00 Doctor U nassigned, [place] [facility] MAGNESIUM 2020-02-28 10:52:00 Rafiq Tucker [facility] BASIC METABOLIC PANEL (NA, K, CL, CO2, GLUCOSE, BUN, CREATININE, CA) 2020-02-28 10:52:00 Rafiq Tucker [facility] CBC WITH DIFFERENTIAL 2020-02-28 10:52:00 Garrett [facility] COMP. METABOLIC PANEL ([id number]) 2020-02-26 07:45:00 Vivian [facility] CBC WITH DIFFERENTIAL 2020-02-26 07:45:00 Cristiano Diop [facility] N-TERMINAL PRO-BNP 2020-02-26 07:45:00 Vivian [facility] ACUTE CARE VENOUS BLOOD GAS 2020-02-26 07:44:00 Vivian [facility] ACUTE CARE ARTERIAL BLOOD GAS 2020-02-25 18:33:00 Garrett [facility] TROPONIN I 2020-02-25 10:20:00 Vivian you [facility] COMP. METABOLIC PANEL ([id number]) 2020-02-25 10:20:00 Vivian [facility] CBC WITH DIFFERENTIAL 2020-02-25 10:20:00 Cristiano Diop [facility] N-TERMINAL PRO-BNP 2020-02-25 10:20:00 Vivian [facility] ACUTE CARE VENOUS BLOOD GAS 2020-02-25 10:19:00 Vivian [facility] ACUTE CARE ARTERIAL BLOOD GAS 2020-02-25 07:08:00 Vivian [facility] PNEUMOCOCCAL ANTIGEN 2020-02-25 06:18:00 Lexx Diop [facility] ACUTE CARE ARTERIAL BLOOD GAS 2020-02-25 05:02:00 Vivian [facility] PROCALCITONIN 2020-02-25 04:41:00 Santino Diop [facility] RESPIRATORY PANEL BY PCR 2020-02-25 04:39:00 Vivian [facility] COVID-19 (PCR MOLECULAR TESTING) 2020-02-25 04:39:00 Vivian [facility] XR CHEST 1 VW COVID 2020-02-25 00:20:02 Alfred Hernandez [facility] AC PANEL 20 + LACTIC ACID 2020-02-25 00:05:00 Bianka Hernandez [facility] EKG-12 LEAD 2020-02-25 00:04:12 Bianka [facility] TROPONIN I 2020-02-24 23:52:00 Bianka Hernandez [facility] HEPATIC FUNCTION PANEL ([id number]) (ALB,T.PRO,BILI T,BU/BC,ALT,AST,ALK PHOS) 2020-02-24 23:52:00 Bianka Hernandez [facility] BASIC METABOLIC PANEL (NA, K, CL, CO2, GLUCOSE, BUN, CREATININE, CA) 2020-02-24 23:52:00 Bianka Hernandez [facility] CBC WITH DIFFERENTIAL 2020-02-24 23:52:00 Ulysses Hernandez [facility] PROTHROMBIN TIME / INR 2020-02-24 23:52:00 Zachary Hernandez [facility] ACTIVATED PARTIAL THRMPLAS LO 2020-02-24 23:52:00 [facility] 2020-02-24 23:52:00 Bianka Hernandez [facility] COVID-19 (PCR MOLECULAR TESTING) 2020-02-24 23:52:00 Bianka Hernandez [facility] EKG-12 LEAD 2020-02-24 23:42:12 Bianka Hernandez [facility] BASIC METABOLIC PANEL (NA, K, CL, CO2, GLUCOSE, BUN, CREATININE, CA) 2020-02-13 10:03:00 Cain [facility] CBC WITH DIFFERENTIAL 2020-02-13 10:03:00 Julianne Barlow [facility] BASIC METABOLIC PANEL (NA, K, CL, CO2, GLUCOSE, BUN, CREATININE, CA) 2020-02-12 09:15:00 Cain [facility] CBC WITH DIFFERENTIAL 2020-02-12 09:15:00 Julianne Barlow [facility] BASIC METABOLIC PANEL (NA, K, CL, CO2, GLUCOSE, BUN, CREATININE, CA) 2020-02-11 08:26:00 Cain [facility] CBC WITH DIFFERENTIAL 2020-02-11 08:26:00 Julianne Barlow [facility] BASIC METABOLIC PANEL (NA, K, CL, CO2, GLUCOSE, BUN, CREATININE, CA) 2020-02-10 08:25:00 Barbara Barlow [facility] CBC WITH DIFFERENTIAL 2020-02-10 08:25:00 Julianne Barlow [facility] CT CHEST PULMONARY ANGIOGRAM 2020-02-10 02:14:40 Bianka Hernandez [facility] XR CHEST 1 VW COVID 2020-02-10 01:22:55 Alfred Hernandez [facility] TROPONIN I 2020-02-10 00:24:00 Bianka Hernandez [facility] HEPATIC FUNCTION PANEL ([id number]) (ALB,T.PRO,BILI T,BU/BC,ALT,AST,ALK PHOS) 2020-02-10 00:24:00 Bianka eHrnandez [facility] BASIC METABOLIC PANEL (NA, K, CL, CO2, GLUCOSE, BUN, CREATININE, CA) 2020-02-10 00:24:00 Bianka Hernandez [facility] CBC WITH DIFFERENTIAL 2020-02-10 00:24:00 Ulysses Hernandez [facility] PROTHROMBIN TIME / INR 2020-02-10 00:24:00 Zachary Hernandez [facility] ACTIVATED PARTIAL THRMPLAS LO 2020-02-10 00:24:00 Bianka Hernandez [facility] N-TERMINAL PRO-BNP 2020-02-10 00:24:00 Bianka Hernandez [facility] COVID-19 (PCR MOLECULAR TESTING) 2020-02-10 00:24:00 Bianka Hernandez [facility] EKG-12 LEAD 2020-02-10 00:15:29 Bianka Hernandez [facility] EKG-12 LEAD 2020-02-09 23:59:26 Bian[facility] BASIC METABOLIC PANEL (NA, K, CL, CO2, GLUCOSE, BUN, CREATININE, CA) 2020-02-02 08:56:00 Barbara Barlow [facility] CBC WITH DIFFERENTIAL 2020-02-02 08:56:00 Julianne Barlow [facility] BASIC METABOLIC PANEL (NA, K, CL, CO2, GLUCOSE, BUN, CREATININE, CA) 2020-02-01 11:18:00 [facility] CBC WITH DIFFERENTIAL 2020-02-01 11:18:00 Julianne Barlow [facility] HEPATIC FUNCTION PANEL ([id number]) (ALB,T.PRO,BILI T,BU/BC,ALT,AST,ALK PHOS) 2020-01-31 10:30:00 Vivian [facility] BASIC METABOLIC PANEL (NA, K, CL, CO2, GLUCOSE, BUN, CREATININE, CA) 2020-01-31 10:30:00 Cain [facility] CBC WITH DIFFERENTIAL 2020-01-31 10:30:00 Julianne Barlow [facility] N-TERMINAL PRO-BNP 2020-01-31 10:30:00 Vivian [facility] ACUTE CARE VENOUS BLOOD GAS 2020-01-31 10:24:00 Vivian [facility] BASIC METABOLIC PANEL (NA, K, CL, CO2, GLUCOSE, BUN, CREATININE, CA) 2020-01-30 09:37:00 Cain [facility] CBC WITH DIFFERENTIAL 2020-01-30 09:37:00 Julianne Barlow [facility] ACUTE CARE VENOUS BLOOD GAS 2020-01-30 09:28:00 Vivian [facility] SPUTUM CULTURE 2020-01-30 01:43:00 Vivian [facility] LEGIONELLA URINARY ANTIGEN TST 2020-01-30 01:34:00 Vivian [facility] RESPIRATORY PANEL BY PCR 2020-01-30 01:32:00 Vivian [facility] ECHO ROUTINE W/DOPPLER COLOR 2020-01-29 20:33:11 Vivian [facility] AC PANEL 20 + LACTIC ACID 2020-01-29 20:12:00 Vivian [facility] VITAMIN B12, LEVEL 2020-01-29 18:41:00 Vivian [facility] FOLATE 2020-01-29 18:41:00 Vivian [facility] TROPONIN I 2020-01-29 18:41:00 Cain [facility] FREE T4 2020-01-29 18:41:00 Vivian, Adnan [facility] MYCOPLASMA PNEUMONIAE ANTIBODY, IGM 2020-01-29 18:41:00 Santino Diop [facility] FREE T3 2020-01-29 18:41:00 Santino Diop [facility] TROPONIN I 2020-01-29 13:45:00 Cain [facility] THYROID STIMULATING HORMONE 2020-01-29 13:45:00 Santino Diop [facility] LIPID PANEL (21983)(TOTAL CHOLESTEROL, TRIGLYCERIDES, HDL) 2020-01-29 13:45:00 Saray Almaguer [facility] ACUTE CARE VENOUS BLOOD GAS 2020-01-29 13:45:00 Santino Diop [facility] N-TERMINAL PRO-BNP 2020-01-29 13:45:00 Saray Almaguer [facility] PROCALCITONIN 2020-01-29 13:45:00 Santino Diop [facility] CREATINE KINASE 2020-01-29 09:26:00 Santino Diop [facility] TROPONIN I 2020-01-29 09:26:00 Cain [facility] CORONAVIRUS COVID-19 TESTING 2020-01-29 06:36:00 Yanni Jim [facility] XR CHEST 1 VW 2020-01-29 05:40:58 Yanni Jim [facility] LIPASE 2020-01-29 05:33:00 Yanni Jim [facility] TROPONIN I 2020-01-29 05:33:00 Yanni Jim [facility] COMP. METABOLIC PANEL (65863) 2020-01-29 05:33:00 Yanni Jim [facility] CBC WITH DIFFERENTIAL 2020-01-29 05:33:00 Chi Jim [facility] GLYCOSYLATED HEMOGLOBIN (A1C) 2020-01-29 05:33:00 Santino Diop [facility] PROTHROMBIN TIME / INR 2020-01-29 05:33:00 Selin Jim [facility] ACTIVATED PARTIAL THRMPLAS LO 2020-01-29 05:33:00 Yanni Jim [facility] N-TERMINAL PRO-BNP 2020-01-29 05:33:00 Yanni Jim [facility] EKG-12 LEAD 2020-01-29 05:27:24 [facility] 2020-01-29 05:02:16 Yanni [facility] MEDICATION CORRESPONDENCE 2019-10-30 06:01:00 Do ctor Unassigned, [place] [facility] HOME HEALTH - OTHER 2019-10-22 06:01:00 Doctor Mckenzie harden, [place] [facility] PHOSPHORUS 2019-10-06 10:00:00 Vivian you [facility] MAGNESIUM 2019-10-06 10:00:00 Vivian [facility] TROPONIN I 2019-10-06 10:00:00 Vivian [facility] THYROID STIMULATING HORMONE 2019-10-06 10:00:00 Victor Hugo Mckeon [facility] BASIC METABOLIC PANEL (NA, K, CL, CO2, GLUCOSE, BUN, CREATININE, CA) 2019-10-06 10:00:00 Vivian [facility] CBC WITH DIFFERENTIAL 2019-10-06 10:00:00 Cristiano Diop [facility] N-TERMINAL PRO-BNP 2019-10-06 10:00:00 Santino Diop [facility] EXTERNAL PROVIDER RECORDS 2019-10-06 06:01:00 Do ctor Unassigned, [place] [facility] PROCALCITONIN 2019-10-06 05:16:00 Santino Diop [facility] CRITICAL CARE 2019-10-06 02:03:05 Bianka Hernandez [facility] XR CHEST 1 VW 2019-10-06 01:40:37 Bianka Hernandez [facility] TROPONIN I 2019-10-06 01:19:00 [facility] HEPATIC FUNCTION PANEL (31756) (ALB,T.PRO,BILI T,BU/BC,ALT,AST,ALK PHOS) 2019-10-06 01:19:00 Bianka Hernandez [facility] BASIC METABOLIC PANEL (NA, K, CL, CO2, GLUCOSE, BUN, CREATININE, CA) 2019-10-06 01:19:00 Bianka Hernandez [facility] CBC WITH DIFFERENTIAL 2019-10-06 01:19:00 Ulysses Hernandez [facility] PROTHROMBIN TIME / INR 2019-10-06 01:19:00 Zachary Hernandez [facility] ACTIVATED PARTIAL THRMPLAS LO 2019-10-06 01:19:00 Bianka Hernandez [facility] N-TERMINAL PRO-BNP 2019-10-06 01:19:00 Bianka Hernandez [facility] EKG-12 LEAD 2019-10-06 01:14:51 Bianka Hernandez [facility] COMP. METABOLIC PANEL (13444) 2019-06-09 20:14:00 Yasemin Dietrich [facility] LIPID PANEL (55657)(TOTAL CHOLESTEROL, TRIGLYCERIDES, HDL) 2019-06-09 20:14:00 Yasemin Dietrich [facility] CBC WITH DIFFERENTIAL 2019-06-09 20:14:00 Yasemin Rowe [facility] ASSIGNMENT OF BENEFITS 2019-06-09 18:58:05 Docto r Unassigned, [place] [facility] Encounters Start Date/Time End Date/Time Encounter Type Admission Type Attending [facility] Care Facility Care Department Encounter ID Source 2021-10-19 09:52:11 Outpatient 3 Ying [facility] [id number] [facility] 2021-10-19 09:51:42 Outpatient 3 [id number] [facility] REF [id number] [facility] [place] [facility] 2021-07-22 05:03:33 Emergency [facility] [id number] [facility] 2021-07-21 10:43:04 Emergency [facility] [id number] [facility] 2023-09-05 00:00:00 2023-09-05 00:00:00 Telephone Yasemin Dietrich Cherise [facility] 1.2840.114 350.1.13.10 4.2.7.2.686 [id number] [facility] 2023-05-08 00:00:00 2023-05-08 00:00:00 Patient Outreach Beau Valenzuela 1.2.840.114 350.1.13.10 4.2.7.2.686 [id number] [facility] 2023-04-24 00:00:00 2023-04-24 00:00:00 Patient Outreach Beau Valenzuela 1.2.840.114 350.1.13.10 4.2.7.2.686 [id number] [facility] 2023-04-10 00:00:00 2023-04-10 00:00:00 Patient Outreach Beau Valenzuela 1.2.840.114 350.1.13.10 4.2.7.2.686 [id number] [facility] 2023-02-20 00:00:00 2023-02-20 00:00:00 Patient Outreach Beau Valenzuela 1.2.840.114 350.1.13.10 4.2.7.2.686 [id number] [facility] 2023-01-15 15:00:00 2023-01-15 15:50:26 Outpatient R YASEMIN DIETRICH [facility] [id number] [facility] 2023-01-15 15:00:00 2023-01-15 15:50:26 Office Visit Yasemin Dietrich [facility] 1.2840.114 350.1.13.10 4.2.7.2.686 [id number] [facility] 2023-01-15 00:00:00 2023-01-15 00:00:00 Orders Only Doctor Unassigned, [place] [facility] 1.2840.114 350.1.13.10 4.2.7.2.686 [id number] [facility] 2023-01-15 00:00:00 2023-01-15 00:00:00 Patient Outreach Claudia Gutierrez [facility] 1.840.114 350.1.13.10 4.2.7.2.686 [id number] [facility] 2023-01-15 00:00:00 2023-01-15 00:00:00 Telephone Yasemin Dietrich [facility] 1.840.114 350.1.13.10 4.2.7.2.686 [id number] [facility] 2023-01-11 00:00:00 2023-01-11 00:00:00 Telephone Yasemin Dietrich [facility] 1.840.114 350.1.13.10 4.2.7.2.686 [id number] [facility] 2023-01-10 00:00:00 2023-01-10 00:00:00 Telephone Yasemin Dietrich [facility] 1.2840.114 350.1.13.10 4.2.7.2.686 [id number] [facility] 2023-01-10 00:00:00 2023-01-10 00:00:00 Patient Outreach Marge Hurst [facility] 1.20.114 350.1.13.10 4.2.7.2.686 [id number] [facility] 2023-01-09 00:00:00 2023-01-09 00:00:00 Telephone Karlo , Yasemin M [facility] 1.2840.114 350.1.13.10 4.2.7.2.686 [id number] [facility] 2022-07-24 00:21:00 2022-07-24 07:04:00 Emergency X HERNÁN [facility] E[facility] [id number] [facility] 2022-07-24 00:21:00 2022-07-24 07:04:00 Emergency Hernán [facility] 1.2840.114 350.1.13.10 4.2.7.2.686 [id number] [facility] 2022-07-23 00:00:00 2022-07-23 00:00:00 Orders Only Doctor Unassigned, [place] [facility] 1.0.114 350.1.13.10 4.2.7.2.686 [id number] [facility] 2022-07-22 04:09:00 2022-07-22 07:11:00 [facility] E[facility] [id number] [facility] 2022-07-22 04:09:00 2022-07-22 07:11:00 Emergency Sayrainyvan [facility] 1.2840.114 350.1.13.10 4.2.7.2.686 [id number] [facility] 2022-06-01 00:00:00 2022-06-01 00:00:00 Patient Outreach Beau Valenzuela 1.20.114 350.1.13.10 4.2.7.2.686 [id number] [facility] 2022-04-23 00:00:00 2022-04-23 00:00:00 Patient Outreach Beau Valenzuela 1.2.840.114 350.1.13.10 4.2.7.2.686 [id number] [facility] 2022-03-30 00:00:00 2022-03-30 00:00:00 Patient Outreach Beau Valenzuela 1.2.840.114 350.1.13.10 4.2.7.2.686 [id number] [facility] 2022-03-28 00:00:00 2022-03-28 00:00:00 Patient Outreach Beau Valenzuela 1.2840.114 350.1.13.10 4.2.7.2.686 [id number] [facility] 2021-07-04 14:30:00 2021-07-04 14:30:00 Outpatient R YASEMIN DIETRICH [facility] [id number] [facility] 2021-06-19 00:00:00 2021-06-19 00:00:00 Patient Outreach Beau Valenzuela 1.2840.114 350.1.13.10 4.2.7.2.686 [id number] [facility] 2021-06-19 00:00:00 2021-06-19 00:00:00 Patient Outreach Beau Valenzuela 1.2840.114 350.1.13.10 4.2.7.2.686 [id number] [facility] 2021-06-19 00:00:00 2021-06-19 00:00:00 Telephone Yasemin Dietrich [facility] 1.2.840.114 350.1.13.10 4.2.7.2.686 [id number] [facility] 2021-06-15 14:20:02 2021-06-15 16:28:47 Office Visit Yasemin Dietrich [facility] 1..114 350.1.13.10 4.2.7.2.686 [id number] [facility] 2021-06-15 14:20:02 2021-06-15 16:28:47 Office Visit Yasemin Dietrich [facility] 1.114 350.1.13.10 4.2.7.2.686 [id number] [facility] 2021-06-15 14:30:00 2021-06-15 14:30:00 Outpatient R YASEMIN DIETRICH [facility] [id number] [facility] 2021-06-15 14:30:00 2021-06-15 14:30:00 Outpatient R YASEMIN DIETRICH [facility] [id number] [facility] 2021-06-15 00:00:00 2021-06-15 00:00:00 Orders Only Doctor Unassigned, [place] [facility] 1.114 350.1.13.10 4.2.7.2.686 [id number] [facility] 2021-06-15 00:00:00 2021-06-15 00:00:00 Patient Outreach Claudia Gutierrez [facility] 1.114 350.1.13.10 4.2.7.2.686 [id number] [facility] 2021-06-15 00:00:00 2021-06-15 00:00:00 Patient Outreach Claudia Gutierrez [facility] 1..114 350.1.13.10 4.2.7.2.686 [id number] [facility] 2021-06-15 00:00:00 2021-06-15 00:00:00 Orders Only Doctor Unassigned, [place] [facility] 1.2.840.114 350.1.13.10 4.2.7.2.686 [id number] [facility] 2021-06-15 00:00:00 2021-06-15 00:00:00 Telephone Yasemin Dietrich [facility] 1..840.114 350.1.13.10 4.2.7.2.686 [id number] [facility] 2021-06-15 00:00:00 2021-06-15 00:00:00 Telephone Yasemin Dietrich [facility] 1.2.840.114 350.1.13.10 4.2.7.2.686 [id number] [facility] 2021-06-15 00:00:00 2021-06-15 00:00:00 Telephone Yasemin Dietrich [facility] 1.2.840.114 350.1.13.10 4.2.7.2.686 [id number] [facility] 2021-06-15 00:00:00 2021-06-15 00:00:00 Patient Outreach Claudia Gutierrez [facility] 1.2840.114 350.1.13.10 4.2.7.2.686 [id number] [facility] 2021-05-24 00:00:00 2021-05-24 00:00:00 Orders Only Doctor Unassigned, [place] [facility] 1.2.840.114 350.1.13.10 4.2.7.2.686 [id number] [facility] 2021-05-24 00:00:00 2021-05-24 00:00:00 Orders Only Doctor Unassigned, [place] [facility] 1.2.114 350.1.13.10 4.2.7.2.686 [id number] [facility] 2020-12-12 00:00:00 2020-12-12 00:00:00 Transition of Care Ernestina Rutherfordkeyana Beckman [place] 1..114 350.1.13.10 4.2.7.2.686 [id number] [facility] 2020-12-05 22:28:00 2020-12-09 14:05:00 Hospital Encounter Yanni Jim [facility] 1.114 350.1.13.10 4.2.7.2.686 [id number] [facility] 2020-12-05 22:28:00 2020-12-09 14:05:00 Inpatient X YANNI JIM [facility] [id number] [facility] 2020-09-09 00:00:00 2020-09-09 00:00:00 Patient Outreach Beau Valenzuela 1.114 350.1.13.10 4.2.7.2.686 [id number] [facility] 2020-08-09 13:54:39 2020-08-09 15:25:13 Office Visit Amy Gates [facility] 1.114 350.1.13.10 4.2.7.2.686 [id number] [facility] 2020-08-09 14:00:00 2020-08-09 14:00:00 Outpatient R AMY GATES [facility] [id number] [facility] 2020-08-04 10:21:00 2020-08-04 13:04:00 Emergency Shmuel Mariscal [facility] 1.20.114 350.1.13.10 4.2.7.2.686 [id number] [facility] 2020-08-02 11:15:00 2020-08-02 11:15:00 Outpatient JAVY NEWMAN [facility] [id number] [facility] 2020-08-02 10:53:53 2020-08-02 11:08:53 Nutrition Services Aide Visit Pob, Adc Lab Main Javy Joshi [facility] 1.2.114 350.1.13.10 4.2.7.2.686 [id number] [facility] 2020-08-02 00:00:00 2020-08-02 00:00:00 Orders Only Doctor Unassigned, [place] [facility] 1.2840.114 350.1.13.10 4.2.7.2.686 [id number] [facility] 2020-07-27 00:00:00 2020-07-27 00:00:00 Patient Outreach Beau Valenzuela 1.2.840.114 350.1.13.10 4.2.7.2.686 [id number] [facility] 2020-07-22 00:00:00 2020-07-22 00:00:00 Patient Outreach Beau Valenzuela 1.2840.114 350.1.13.10 4.2.7.2.686 [id number] [facility] 2020-07-21 10:20:00 2020-07-21 10:20:00 Outpatient BIMAL DICK SHIWAN [facility] [id number] [facility] 2020-05-06 15:20:00 2020-05-06 15:20:00 Outpatient R KLEIN BIMAL KLEIN HODAANAID [facility] [id number] [facility] 2020-04-27 11:34:00 2020-04-30 11:49:00 Hospital Encounter Shmuel Mariscal, Barbara [facility] 1.2840.114 350.1.13.10 4.2.7.2.686 [id number] [facility] 2020-04-29 10:20:00 2020-04-29 10:20:00 Outpatient R LATOYA BIMAL KLEIN HAZELKeyana [facility] [id number] [facility] 2020-04-29 00:00:00 2020-04-29 00:00:00 Telephone Yasemin Dietrich [facility] 1.840.114 350.1.13.10 4.2.7.2.686 [id number] [facility] 2020-04-20 00:00:00 2020-04-20 00:00:00 Patient Outreach Gisel Beebe [facility] 1.20.114 350.1.13.10 4.2.7.2.686 [id number] [facility] 2020-04-20 00:00:00 2020-04-20 00:00:00 Telephone Bimal Klein [facility] 1.2840.114 350.1.13.10 4.2.7.2.686 [id number] [facility] 2020-04-20 00:00:00 2020-04-20 00:00:00 Patient Outreach Beau Valenzuela 1.2840.114 350.1.13.10 4.2.7.2.686 [id number] [facility] 2020-04-07 11:05:46 2020-04-19 14:36:30 Office Visit Yasemin Dietrich [facility] 1.2.840.114 350.1.13.10 4.2.7.2.686 [id number] [facility] 2020-04-19 00:00:00 2020-04-19 00:00:00 Patient Outreach Gisel Beebe Jean [facility] 1.2.840.114 350.1.13.10 4.2.7.2.686 [id number] [facility] 2020-04-18 00:00:00 2020-04-18 00:00:00 Refill Yasemin Dietrich [facility] 1.2.840.114 350.1.13.10 4.2.7.2.686 [id number] [facility] 2020-04-18 00:00:00 2020-04-18 00:00:00 Telephone Yasemin Dietrich [facility] 1.2.840.114 350.1.13.10 4.2.7.2.686 [id number] [facility] 2020-04-17 00:00:00 2020-04-17 00:00:00 Nurse Triage [facility] 1.2.840.114 350.1.13.10 4.2.7.2.686 [id number] [facility] 2020-04-17 00:00:00 2020-04-17 00:00:00 [facility] 1.2.840.114 350.1.13.10 4.2.7.2.686 [id number] [facility] 2020-04-15 15:40:00 2020-04-15 15:40:00 Outpatient R BIMAL KLEIN SHIWAN NJTAVO [facility] [id number] [facility] 2020-04-15 15:40:00 2020-04-15 15:40:00 Outpatient R BIMAL KLEIN SHIWAN [facility] [id number] [facility] 2020-04-15 12:05:22 2020-04-15 12:25:22 Telemedici ne Visit Bimal Klein [facility] Imelda Ventura [facility] 1..114 350.1.13.10 4.2.7.2.686 [id number] [facility] 2020-04-13 00:00:00 2020-04-13 00:00:00 Patient Outreach Beau Valenzuela 1..114 350.1.13.10 4.2.7.2.686 [id number] [facility] 2020-04-13 00:00:00 2020-04-13 00:00:00 Telephone Yasemin Dietrich [facility] 1..114 350.1.13.10 4.2.7.2.686 [id number] [facility] 2020-04-11 00:00:00 2020-04-11 00:00:00 Patient Outreach Beau Valenzuela 1.840.114 350.1.13.10 4.2.7.2.686 [id number] [facility] 2020-04-11 00:00:00 2020-04-11 00:00:00 Telephone Joan Smith [facility] 1.84.114 350.1.13.10 4.2.7.2.686 [id number] [facility] 2020-04-08 13:00:00 2020-04-08 13:00:00 Outpatient R BIMAL KLEIN SHIWVKeyana [facility] [id number] [facility] 2020-04-08 00:00:00 2020-04-08 00:00:00 Telephone Yasemin Dietrich [facility] 1.2.840.114 350.1.13.10 4.2.7.2.686 [id number] [facility] 2020-04-08 00:00:00 2020-04-08 00:00:00 Patient Outreach Beau Valenzuela [facility] 1.2.840.114 350.1.13.10 4.2.7.2.686 [id number] [facility] 2020-04-07 11:30:00 2020-04-07 11:30:00 Outpatient R YASEMIN DIETRICH [facility] [id number] [facility] 2020-04-06 00:00:00 2020-04-06 00:00:00 Telephone Yasemin Dietrich [facility] 1.2.840.114 350.1.13.10 4.2.7.2.686 [id number] [facility] 2020-04-05 00:00:00 2020-04-05 00:00:00 Patient Outreach Manda Pederson [facility] 1.2.840.114 350.1.13.10 4.2.7.2.686 [id number] [facility] 2020-04-05 00:00:00 2020-04-05 00:00:00 Telephone Yasemin Dietrich [facility] 1.2.840.114 350.1.13.10 4.2.7.2.686 [id number] [facility] 2020-04-01 00:00:00 2020-04-01 00:00:00 Telephone Yasemin Dietrich [facility] 1.2.840.114 350.1.13.10 4.2.7.2.686 [id number] [facility] 2020-04-01 00:00:00 2020-04-01 00:00:00 Telephone Yasemin Dietrich [facility] 1.2840.114 350.1.13.10 4.2.7.2.686 [id number] [facility] 2020-04-01 00:00:00 2020-04-01 00:00:00 Orders Only Doctor Unassigned, [place] [facility] 1.2840.114 350.1.13.10 4.2.7.2.686 [id number] [facility] 2020-03-31 00:00:00 2020-03-31 00:00:00 Telephone Yasemin Dietrich [facility] 1.2840.114 350.1.13.10 4.2.7.2.686 [id number] [facility] 2020-03-29 11:00:00 2020-03-29 11:00:00 Outpatient R YASEMIN DIETRICH [facility] [id number] [facility] 2020-03-29 00:00:00 2020-03-29 00:00:00 Patient Outreach Manda Pederson [facility] 1.840.114 350.1.13.10 4.2.7.2.686 [id number] [facility] 2020-03-25 00:00:00 2020-03-25 00:00:00 Patient Outreach BgManda Frank Nichols 1.2840.114 350.1.13.10 4.2.7.2.686 [id number] [facility] 2020-03-25 00:00:00 2020-03-25 00:00:00 Patient Outreach BgManda Frank Nichols 1.2840.114 350.1.13.10 4.2.7.2.686 [id number] [facility] 2020-03-24 00:00:00 2020-03-24 00:00:00 Telephone [facility] 1.2840.114 350.1.13.10 4.2.7.2.686 [id number] [facility] 2020-03-24 00:00:00 2020-03-24 00:00:00 Telephone [facility] 1.2.840.114 350.1.13.10 4.2.7.2.686 [id number] [facility] 2020-03-23 00:00:00 2020-03-23 00:00:00 Orders Only Doctor Unassigned, [place] [facility] 1.840.114 350.1.13.10 4.2.7.2.686 [id number] [facility] 2020-03-18 00:00:00 2020-03-18 00:00:00 Telephone [facility] 1.840.114 350.1.13.10 4.2.7.2.686 [id number] [facility] 2020-03-18 00:00:00 2020-03-18 00:00:00 Telephone [facility] 1.2840.114 350.1.13.10 4.2.7.2.686 [id number] [facility] 2020-03-18 00:00:00 2020-03-18 00:00:00 Telephone [facility] 1.2.840.114 350.1.13.10 4.2.7.2.686 [id number] 2020-03-15 00:00:00 2020-03-15 00:00:00 Telephone [facility] 1.2.840.114 350.1.13.10 4.2.7.2.686 [id number] [facility] 2020-03-15 00:00:00 2020-03-15 00:00:00 Telephone [facility] 1.2.840.114 350.1.13.10 4.2.7.2.686 [id number] 2020-03-10 00:00:00 2020-03-10 00:00:00 Patient Outreach Manda Pederson Frank Nichols 1.2.840.114 350.1.13.10 4.2.7.2.686 [id number] 403 [id number] [facility] 2020-03-10 00:00:00 2020-03-10 00:00:00 Patient Outreach Manda Pederson Frank Nichols 1.2.840.114 350.1.13.10 4.2.7.2.686 [id number] 403 [id number] 2020-03-09 00:00:00 2020-03-09 00:00:00 Transition of Care Ernestina Rutherford 1.2.840.114 350.1.13.10 4.2.7.2.686 [id number] 403 [id number] [facility] 2020-03-08 00:00:00 2020-03-08 00:00:00 Telephone [facility] 1.2.840.114 350.1.13.10 4.2.7.2.686 [id number] [facility] 2020-03-08 00:00:00 2020-03-08 00:00:00 Orders Only Doctor Unassigned, [place] [facility] 1.2.840.114 350.1.13.10 4.2.7.2.686 [id number] [id number] [facility] 2020-03-08 00:00:2020-03-08 00:00:00 Orders Only Doctor Unassigned, [place] [facility] 1.840.114 350.1.13.10 4.2.7.2.686 [id number] [id number] 2020-03-04 15:52:31 2020-03-07 14:13:00 Hospital Encounter Bianka Hernandez Kareem Sheikh [facility] 1.840.114 350.1.13.10 4.2.7.2.686 [id number] [facility] 2020-03-04 15:52:31 2020-03-07 14:13:00 Inpatient X KORIKAREEM [facility] [id number] [facility] 2020-03-07 00:00:00 2020-03-07 00:00:00 Case Management Kael Jackson [facility] 1.840.114 350.1.13.10 4.2.7.2.686 [id number] [facility] 2020-03-07 00:00:00 2020-03-07 00:00:00 Telephone [facility] 1.840.114 350.1.13.10 4.2.7.2.686 [id number] [facility] 2020-03-03 00:00:00 2020-03-03 00:00:00 Orders Only Doctor Unassigned, [place] [facility] 1.2840.114 350.1.13.10 4.2.7.2.686 [id number] [id number] [facility] 2020-03-02 00:00:00 2020-03-02 00:00:00 Transition of Care Ernestina Rutherford 1.2840.114 350.1.13.10 4.2.7.2.686 [id number] [facility] 2020-03-02 00:00:00 2020-03-02 00:00:00 Telephone [facility] 1..114 350.1.13.10 4.2.7.2.686 [id number] [facility] 2020-03-02 00:00:00 2020-03-02 00:00:00 Orders Only Doctor Unassigned, [place] [facility] 1.2840.114 350.1.13.10 4.2.7.2.686 [id number] [id number] [facility] 2020-03-01 11:30:00 2020-03-01 11:30:00 Outpatient R YASEMIN DIETRICH [facility] [id number] [facility] 2020-03-01 00:00:00 2020-03-01 00:00:00 Patient Outreach Manda Pederson 1.84.114 350.1.13.10 4.2.7.2.686 [id number] [facility] 2020-02-24 18:42:56 2020-02-29 16:00:00 Hospital Encounter Bianka Hernandez Wakili S Lakhani, Adnan [facility] 1.84.114 350.1.13.10 4.2.7.2.686 [id number] [facility] 2020-02-24 18:42:56 2020-02-29 16:00:00 Inpatient X SANTINO DIOP [facility] [id number] [facility] 2020-02-25 00:00:00 2020-02-25 00:00:00 Patient Outreach Manda Pederson 1.284.114 350.1.13.10 4.2.7.2.686 [id number] [facility] 2020-02-24 00:00:00 2020-02-24 00:00:00 Patient Outreach Manda Pederson 1.2.840.114 350.1.13.10 4.2.7.2.686 [id number] [facility] 2020-02-19 00:00:00 2020-02-19 00:00:00 Patient Outreach Beau Valenzuela 1.2.840.114 350.1.13.10 4.2.7.2.686 [id number] [facility] 2020-02-19 00:00:00 2020-02-19 00:00:00 Telephone [facility] 1.2.840.114 350.1.13.10 4.2.7.2.686 [id number] [facility] 2020-02-18 00:00:00 2020-02-18 00:00:00 Patient Outreach Beau Valenzuela 1.2.840.114 350.1.13.10 4.2.7.2.686 [id number] 403 [id number] [facility] 2020-02-16 00:00:00 2020-02-16 00:00:00 Patient Outreach Beau Valenzuela 1.2.840.114 350.1.13.10 4.2.7.2.686 [id number] [facility] 2020-02-09 18:49:59 2020-02-13 16:37:00 Emergency Bianka Hernandez [facility] 1.2.840.114 350.1.13.10 4.2.7.2.686 [id number] 081 [id number] [facility] 2020-02-09 18:49:59 2020-02-13 16:37:00 Outpatient X [facility] [id number] [facility] 2020-02-12 00:00:00 2020-02-12 00:00:00 Telephone [facility] 1.2.840.114 350.1.13.10 4.2.7.2.686 [id number] [facility] 2020-02-11 00:00:00 2020-02-11 00:00:00 Telephone [facility]emin [facility] 1.2.840.114 350.1.13.10 4.2.7.2.686 [id number] 314 [id number] [facility] 2020-02-10 00:00:00 2020-02-10 00:00:00 Patient Outreach Beau Valenzuela 1.2.840.114 350.1.13.10 4.2.7.2.686 [id number] [facility] 2020-02-10 00:00:00 2020-02-10 00:00:00 Patient Outreach Manda Pederson Frank Nichols 1.2.840.114 350.1.13.10 4.2.7.2.686 [id number] [facility] 2020-02-09 00:00:00 2020-02-09 00:00:00 Patient Outreach Manda Pederson Frank Nichols 1.2.840.114 350.1.13.10 4.2.7.2.686 [id number] [facility] 2020-02-09 00:00:00 2020-02-09 00:00:00 Telephone [facility] 1.2.840.114 350.1.13.10 4.2.7.2.686 [id number] [facility] 2020-02-04 00:00:00 2020-02-04 00:00:00 Transition of Care Ernestina Rutherford 1.2.840.114 350.1.13.10 4.2.7.2.686 [id number] [facility] 2020-01-28 23:59:20 2020-02-02 14:00:00 Hospital Encounter Yanni Jim [facility] 1.114 350.1.13.10 4.2.7.2.686 [id number] [id number] [facility] 2020-01-28 23:59:20 2020-02-02 14:00:00 Inpatient X BARBARA BARLOW [facility] [id number] [facility] 2020-02-02 00:00:00 2020-02-02 00:00:00 Patient Outreach Manda Pederson 1.114 350.1.13.10 4.2.7.2.686 [id number] [facility] 2020-02-02 00:00:00 2020-02-02 00:00:00 Telephone [facility] 1..114 350.1.13.10 4.2.7.2.686 [id number] [facility] 2020-02-02 00:00:00 2020-02-02 00:00:00 Telephone [facility]emin [facility] 1.114 350.1.13.10 4.2.7.2.686 [id number] [facility] 2020-01-28 00:00:00 2020-01-28 00:00:00 Patient Outreach Beau Valenzuela 1.114 350.1.13.10 4.2.7.2.686 [id number] [facility] 2020-01-20 00:00:00 2020-01-20 00:00:00 Telephone [facility] 1.2.840.114 350.1.13.10 4.2.7.2.686 [id number] [facility] 2020-01-16 02:15:54 2020-01-16 06:30:00 Emergency X YANNI JIM [facility] ERT [id number] [facility] 2020-01-12 00:00:00 2020-01-12 00:00:00 Telephone Joan Smith [facility] 1.0.114 350.1.13.10 4.2.7.2.686 [id number] [facility] 2020-01-01 15:20:00 2020-01-01 15:20:00 Outpatient R BIMAL KLEIN SHIWVKeyana [facility] [id number] [facility] 2020-01-01 08:27:30 2020-01-01 08:47:30 Telemedici ne [facility] 1..114 350.1.13.10 4.2.7.2.686 [id number] [facility] 2019-12-28 00:00:00 2019-12-28 00:00:00 Patient Outreach Ivana Paulson 1.2840.114 350.1.13.10 4.2.7.2.686 [id number] [facility] 2019-12-22 00:00:00 2019-12-22 00:00:00 Patient Outreach Beau Valenzuela 1.2840.114 350.1.13.10 4.2.7.2.686 [id number] 403 [id number] [facility] 2019-11-17 00:00:00 2019-11-17 00:00:00 Telephone [facility] 1..114 350.1.13.10 4.2.7.2.686 [id number] [facility] 2019-11-16 00:00:00 2019-11-16 00:00:00 Patient Outreach Manda Pederson Frank Nichols 1.2840.114 350.1.13.10 4.2.7.2.686 [id number] [facility] 2019-11-12 10:00:00 2019-11-12 10:00:00 Outpatient Ned KLEIN, BIMAL BRYAN [facility] [id number] [facility] 2019-11-03 00:00:00 2019-11-03 00:00:00 Telephone [facility] 1.840.114 350.1.13.10 4.2.7.2.686 [id number] [facility] 2019-10-30 00:00:00 2019-10-30 00:00:00 Orders Only Doctor Unassigned, [place] [facility] 1.2840.114 350.1.13.10 4.2.7.2.686 [id number] [id number] [facility] 2019-10-27 00:00:00 2019-10-27 00:00:00 Patient Outreach Beau Valenzuela 1.840.114 350.1.13.10 4.2.7.2.686 [id number] [facility] 2019-10-27 00:00:00 2019-10-27 00:00:00 Telephone Yaseimn Dietrich [facility] 1.0.114 350.1.13.10 4.2.7.2.686 [id number] [facility] 2019-10-22 00:00:00 2019-10-22 00:00:00 Patient Outreach Beau Valenzuela 1.0.114 350.1.13.10 4.2.7.2.686 [id number] [facility] 2019-10-22 00:00:00 2019-10-22 00:00:00 Orders Only Doctor Unassigned, [place] [facility] 1.2.840.114 350.1.13.10 4.2.7.2.686 [id number] [id number] [facility] 2019-10-21 00:00:00 2019-10-21 00:00:00 Patient Outreach Bianca Beau Archer Frank Beck[place] 1.2.840.114 350.1.13.10 4.2.7.2.686 [id number] [facility] 2019-10-21 00:00:00 2019-10-21 00:00:00 Telephone [facility] 1.0.114 350.1.13.10 4.2.7.2.686 [id number] [facility] 2019-10-19 00:00:00 2019-10-19 00:00:00 Patient Outreach Beau Val[address] 1.2840.114 350.1.13.10 4.2.7.2.686 [id number] [facility] 2019-10-16 00:00:00 2019-10-16 00:00:00 Telephone [facility]emin [facility] 1.2840.114 350.1.13.10 4.2.7.2.686 [id number] [facility] 2019-10-15 11:20:00 2019-10-15 11:20:00 Outpatient BIMAL DICK SHIWAN [facility] [id number] [facility] 2019-10-14 11:38:07 2019-10-14 12:01:10 Office Visit [facility]emin [facility] 1.2.114 350.1.13.10 4.2.7.2.686 [id number] [facility] 2019-10-09 00:00:00 2019-10-09 00:00:00 Telephone Yasemin [facility] 1.2.840.114 350.1.13.10 4.2.7.2.686 [id number] [facility] 2019-10-09 00:00:00 2019-10-09 00:00:00 Telephone Yasemin [facility] 1.2.840.114 350.1.13.10 4.2.7.2.686 [id number] [facility] 2019-10-08 00:00:00 2019-10-08 00:00:00 Patient Outreach Beau Valenzuela 1.2.840.114 350.1.13.10 4.2.7.2.686 [id number] [facility] 2019-10-08 00:00:00 2019-10-08 00:00:00 Transition of Care Priscilla Alvarado 1.2.840.114 350.1.13.10 4.2.7.2.686 [id number] [facility] 2019-10-05 18:53:17 2019-10-07 15:30:00 Outpatient X SANTINO DIOP [facility] [id number] [facility] 2019-10-05 18:53:17 2019-10-07 15:30:00 Emergency Bianka Hernandez Adnan [facility] 1.2.840.114 350.1.13.10 4.2.7.2.686 [id number] [facility] 2019-10-06 00:00:00 2019-10-06 00:00:00 Patient Outreach Beau Valenzuela 1.2840.114 350.1.13.10 4.2.7.2.686 [id number] [facility] 2019-06-09 14:01:23 2019-06-10 13:19:23 Office Visit [facility]emin [facility] 1.2840.114 350.1.13.10 4.2.7.2.686 [id number] [facility] 2019-06-10 00:00:00 2019-06-10 00:00:00 Patient Outreach Marge Hurst [facility] 1.2840.114 350.1.13.10 4.2.7.2.686 [id number] [facility] 2019-06-09 00:00:00 2019-06-09 00:00:00 Orders Only Doctor Unassigned, [place] [facility] 1.2840.114 350.1.13.10 4.2.7.2.686 [id number] [id number] [facility] Results Test Description Test Time Test Comments Results Result Co [facility] (NA, K, CL, CO2, GLUCOSE, BUN, CREATININE, CA)2020-12-09 13:56:17* Test Item Value Reference Range Interpretation Comme nts NA (test code = 9497066648) 138 mmol/L 135-145 K (test code = 4001960380) 3.6 mmol/L 3.5-5.0 CL (test code = 4218058201) 107 mmol/L 98-108 CO2 TOTAL (test code = 3586579923) 27 mmol/L 23-31 AGAP (test code = 8749852500) 2-16 BUN (test code = 6255403892) 22 mg/dL 7-23 GLUCOSE (test code = 8438547008) 99 mg/dL 70-110 CREATININE (test code = 0311051403) 0.81 mg/dL 0.50-1.04 CALCIUM (test code = 5842903631) 9.2 mg/dL 8.6-10.6 eGFR Calculation (Non-) (test code = 8435044836) mL/min/1.73m2 eGFR Calculation () (test code = 7991904094) mL/min/1.73m2 DAO (test code = DAO) Association of Glomerular Filtration Rate (GFR) and Staging of Kidney Disease* + -+ + ---+| GFR (mL/min/1.73 m2) ?| With Kidney Damage ?| ?Without Kidney Damage+ -------+ ------+ ---------+| ?>90 ?| ?Stage one ?| ? Normal ?+ --+ -+ ----+| ?60-89 ?| ?Stage two ?| ? Decreased GFR ? + -+ + ---+| ?30-59 ?| ?Stage three ?| ? Stage three ? + -+ + ---+| ?15-29 ?| ?Stage four ? | ? Stage four ?+ --+ -+ ----+| ?<15 (or dialysis) ? ?| ?Stage five ? | ? Stage five ?+ --+ -+ ----+ *Each stage assumes the associated GFR level has been in effect for at least three months. ?Stages 1 to 5, with or without kidney disease, indicate chronic kidney disease. Notes: Determination of stages one and two (with eGFR >59mL/min/1.73 m2) requires estimation of kidney damage for at least three months as defined by structural or functional abnormalities of the kidney, manifested by either:Pathological abnormalities or Markers of kidney damage (including abnormalities in the composition of the blood or urine or abnormalities in imaging tests). [facility] with Aspbbccxpevy8135-27-37 12:46:10* Test Item Value Reference Range Interpretation Comme nts WBC (test code = 6690-2) See_Comment H [Automated message] The system which generated this result transmitted reference range: 4.30 - 11.10 10*3/?L. The reference range was not used to interpret this result as normal/abnormal. RBC (test code = 789-8) See_Comment [Automated message] The system which generated this result transmitted reference range: 3.93 - 5.25 10*6/?L. The reference range was not used to interpret this result as normal/abnormal. HGB (test code = 718-7) 13.4 g/dL 11.6-15.0 HCT (test code = 4544-3) 41.3 % 35.7-45.2 MCV (test code = 787-2) 94.1 fL 80.6-95.5 MCH (test code = 785-6) 30.5 pg 25.9-32.8 MCHC (test code = 786-4) 32.4 g/dL 31.6-35.1 RDW-SD (test code = 88953-8) 45.7 fL 39.0-49.9 RDW-CV (test code = 788-0) 13.2 % 12.0-15.5 PLT (test code = 777-3) See_Comment H [Automated message] The system which generated this result transmitted reference range: 166 - 358 10*3/?L. The reference range was not used to interpret this result as normal/abnormal. MPV (test code = 11843-9) 9.4 fL 9.5-12.9 L NRBC/100 WBC (test code = 0998497831) See_Comment [Automated message] The system which generated this result transmitted reference range: 0.0 - 10.0 /100 WBCs. The reference range was not used to interpret this result as normal/abnormal. NRBC x10^3 (test code = 2616367592) <0.01 See_Comment [Automated message] The system which generated this result transmitted reference range: 10*3/?L. The reference range was not used to interpret this result as normal/abnormal. SEG % (test code = 75105-6) 66 % 33-76 LYMPH % (test code = 93094-9) 18 % 14-54 MONO % (test code = 96885-7) 16 % 0-4 H ANC (test code = 6400733446) 10.71 10*3/uL 1.88-7.09 H GIANT PLATELETS (test code = 5908-9) Present See_Comment A [Automated message] The system which generated this result transmitted reference range: (none). The reference range was not used to interpret this result as normal/abnormal. Lab Interpretation (test code = 30640-2) [facility]52* Test Item Value Reference Range Interpretation Comme nts MAGNESIUM (test code = 0715938828) 2.2 mg/dL 1.7-2.4 Lab Interpretation (test cod e = 35552-5) Normal [facility]2021-03-18 21:05:46* Test Item Value Reference Range Interpretation Comme nts MAGNESIUM (test code = 5554615508) 2.2 mg/dL 1.7-2.4 Lab Interpretation (test cod e = 67014-1) Normal [facility] Metabolic Panel (NA, K, CL, CO2, GLUCOSE, BUN, CREATININE, CA)2020-12-08 12:05:06* Test Item Value Reference Range Interpretation Comme nts NA (test code = 1096234549) 139 mmol/L 135-145 K (test code = 6824330357) 2.8 mmol/L 3.5-5.0 LL CL (test code = 8416885937) 104 mmol/L 98-108 CO2 TOTAL (test code = 1144248976) 33 mmol/L 23-31 H AGAP (test code = 9124049946) 2-16 BUN (test code = 7264013744) 24 mg/dL 7-23 H GLUCOSE (test code = 3820766121) 93 mg/dL 70-110 CREATININE (test code = 3696478215) 0.70 mg/dL 0.50-1.04 CALCIUM (test code = 9719176987) 8.5 mg/dL 8.6-10.6 L eGFR Calculation (Non-) (test code = 5849239874) mL/min/1.73m2 eGFR Calculation () (test code = 1646973011) mL/min/1.73m2 DOA (test code = DAO) Association of Glomerular Filtration Rate (GFR) and Staging of Kidney Disease* + --+ --+ ------+| GFR (mL/min/1.73 m2) ?| With Kidney Damage ?| ?Without Kidney Damage+ --------+ --------+ +| ?>90 ?| ?Stage one ?| ? Normal ?+ ---+ ---+ -------+| ?60-89 ?| ?Stage two ?| ? Decreased GFR ? + --+ --+ ------+| ?30-59 ?| ?Stage three ?| ? Stage three ? + --+ --+ ------+| ?15-29 ?| ?Stage four ? | ? Stage four ?+ ---+ ---+ -------+| ?<15 (or dialysis) ? ?| ?Stage five ? | ? Stage five ?+ ---+ ---+ -------+ *Each stage assumes the associated GFR level has been in effect for at least three months. ?Stages 1 to 5, with or without kidney disease, indicate chronic kidney disease. Notes: Determination of stages one and two (with eGFR >59mL/min/1.73 m2) requires estimation of kidney damage for at least three months as defined by structural or functional abnormalities of the kidney, manifested by either:Pathological abnormalities or Markers of kidney damage (including abnormalities in the composition of the blood or urine or abnormalities in imaging tests). Lab Interpretation (test code = 43289-3) Abnormal [facility] with Licvcwyuisrx6989-68-82 11:28:29* Test Item Value Reference Range Interpretation Comme nts WBC (test code = 6690-2) See_Comment H [Automated message] The system which generated this result transmitted reference range: 4.30 - 11.10 10*3/?L. The reference range was not used to interpret this result as normal/abnormal. RBC (test code = 789-8) See_Comment [Automated message] The system which generated this result transmitted reference range: 3.93 - 5.25 10*6/?L. The reference range was not used to interpret this result as normal/abnormal. HGB (test code = 718-7) 12.7 g/dL 11.6-15.0 HCT (test code = 4544-3) 38.1 % 35.7-45.2 MCV (test code = 787-2) 94.8 fL 80.6-95.5 MCH (test code = 785-6) 31.6 pg 25.9-32.8 MCHC (test code = 786-4) 33.3 g/dL 31.6-35.1 RDW-SD (test code = 93109-0) 46.2 fL 39.0-49.9 RDW-CV (test code = 788-0) 13.1 % 12.0-15.5 PLT (test code = 777-3) See_Comment [Automated message] The system which generated this result transmitted reference range: 166 - 358 10*3/?L. The reference range was not used to interpret this result as normal/abnormal. MPV (test code = 19405-2) 9.6 fL 9.5-12.9 NRBC/100 WBC (test code = 9503971842) See_Comment [Automated message] The system which generated this result transmitted reference range: 0.0 - 10.0 /100 WBCs. The reference range was not used to interpret this result as normal/abnormal. NRBC x10^3 (test code = 3480907275) <0.01 See_Comment [Automated message] The system which generated this result transmitted reference range: 10*3/?L. The reference range was not used to interpret this result as normal/abnormal. GRAN MAT (NEUT) % (test code = 770-8) 79.8 % IMM GRAN % (test code = 7548332379) 0.60 % LYMPH % (test code = 736-9) 11.1 % MONO % (test code = 5905-5) 8.4 % EOS % (test code = 713-8) 0.0 % BASO % (test code = 706-2) 0.1 % GRAN MAT x10^3(ANC) (test code = 8300433542) 12.70 10*3/uL 1.88-7.09 H IMM GRAN x10^3 (test code = 9080630195) 0.09 10*3/uL 0.00-0.06 H LYMPH x10^3 (test code = 731-0) 1.77 10*3/uL 1.32-3.29 MONO x10^3 (test code = 742-7) 1.33 10*3/uL 0.33-0.92 H EOS x10^3 (test code = 711-2) <0.03 0.03-0.39 L BASO x10^3 (test code = 704-7) <0.03 0.01-0.07 Lab Interpretation (test code = 36243-5) Abnormal [facility] with Zvexbbwckwuj3545-30-09 12:44:50* Test Item Value Reference Range Interpretation Comme nts WBC (test code = 6690-2) See_Comment H [Automated message] The system which generated this result transmitted reference range: 4.30 - 11.10 10*3/?L. The reference range was not used to interpret this result as normal/abnormal. RBC (test code = 789-8) See_Comment [Automated message] The system which generated this result transmitted reference range: 3.93 - 5.25 10*6/?L. The reference range was not used to interpret this result as normal/abnormal. HGB (test code = 718-7) 12.8 g/dL 11.6-15.0 HCT (test code = 4544-3) 40.3 % 35.7-45.2 MCV (test code = 787-2) 97.1 fL 80.6-95.5 H MCH (test code = 785-6) 30.8 pg 25.9-32.8 MCHC (test code = 786-4) 31.8 g/dL 31.6-35.1 RDW-SD (test code = 65477-8) 47.3 fL 39.0-49.9 RDW-CV (test code = 788-0) 13.2 % 12.0-15.5 PLT (test code = 777-3) See_Comment H [Automated message] The system which generated this result transmitted reference range: 166 - 358 10*3/?L. The reference range was not used to interpret this result as normal/abnormal. MPV (test code = 05516-0) 9.7 fL 9.5-12.9 NRBC/100 WBC (test code = 2844832189) See_Comment [Automated message] The system which generated this result transmitted reference range: 0.0 - 10.0 /100 WBCs. The reference range was not used to interpret this result as normal/abnormal. NRBC x10^3 (test code = 8661520984) <0.01 See_Comment [Automated message] The system which generated this result transmitted reference range: 10*3/?L. The reference range was not used to interpret this result as normal/abnormal. SEG % (test code = 91015-8) 90 % 33-76 H BAND % (test code = 93355-1) 4 % 0-1 H LYMPH % (test code = 31967-3) 6 % 14-54 L ANC (test code = 1803349609) 17.44 10*3/uL 1.88-7.09 H Lab Interpretation (test code = 46318-8) [id number]2020-[facility]-07 11:24:22* Test Item Value Reference Range Interpretation Comme nts NA (test code = 0092451768) 140 mmol/L 135-145 K (test code = 1109029376) 4.9 mmol/L 3.5-5.0 CL (test code = 2779033902) 92 mmol/L 98-108 L CO2 TOTAL (test code = 8862276728) 40 mmol/L 23-31 H AGAP (test code = 0339111318) 2-16 BUN (test code = 5573115513) 29 mg/dL 7-23 H GLUCOSE (test code = 4303854464) 140 mg/dL 70-110 H CREATININE (test code = 5278226604) 0.67 mg/dL 0.50-1.04 TOTAL BILI (test code = 1630724728) 0.5 mg/dL 0.1-1.1 CALCIUM (test code = 6499734364) 9.3 mg/dL 8.6-10.6 T PROTEIN (test code = 4060695475) 6.1 g/dL 6.3-8.2 L ALBUMIN (test code = 9785609646) 3.9 g/dL 3.5-5.0 ALK PHOS (test code = 1372381472) 45 U/L 34-122 ALTv (test code = 1742-6) 19 U/L 5-35 AST(SGOT) (test code = 5939776019) 35 U/L 13-40 eGFR Calculation (Non-) (test code = 8810052249) mL/min/1.73m2 eGFR Calculation () (test code = 7619472941) mL/min/1.73m2 DAO (test code = DAO) Association of Glomerular Filtration Rate (GFR) and Staging of Kidney Disease* + --+ --+ ------+| GFR (mL/min/1.73 m2) ?| With Kidney Damage ?| ?Without Kidney Damage+ --------+ --------+ +| ?>90 ?| ?Stage one ?| ? Normal ?+ ---+ ---+ -------+| ?60-89 ?| ?Stage two ?| ? Decreased GFR ? + --+ --+ ------+| ?30-59 ?| ?Stage three ?| ? Stage three ? + --+ --+ ------+| ?15-29 ?| ?Stage four ? | ? Stage four ?+ ---+ ---+ -------+| ?<15 (or dialysis) ? ?| ?Stage five ? | ? Stage five ?+ ---+ ---+ -------+ *Each stage assumes the associated GFR level has been in effect for at least three months. ?Stages 1 to 5, with or without kidney disease, indicate chronic kidney disease. Notes: Determination of stages one and two (with eGFR >59mL/min/1.73 m2) requires estimation of kidney damage for at least three months as defined by structural or functional abnormalities of the kidney, manifested by either:Pathological abnormalities or Markers of kidney damage (including abnormalities in the composition of the blood or urine or abnormalities in imaging tests). Lab Interpretation (test code = 33091-4) [facility].2020-12-06 17:23:22* Test Item Value Reference Range Interpretation Comme nts PH (test code = 2) 7.35-7.45 PCO2 (test code = 3413223332) See_Comment H [Automated messa ge] The system which generated this result transmitted reference range: 35 - 45 mmHg. The reference range was not used to interpret this result as normal/abnormal. PO2 (test code = 9448275962) See_Comment L [Automated messa ge] The system which generated this result transmitted reference range: 80 - 100 mmHg. The reference range was not used to interpret this result as normal/abnormal. HCO3 (test code = 3132951202) See_Comment H [Automated messa ge] The system which generated this result transmitted reference range: 22 - 26 mEq/L. The reference range was not used to interpret this result as normal/abnormal. BE (test code = 9052788752) See_Comment H [Automated messa ge] The system which generated this result transmitted reference range: -3.0 - 3.0 mEq/L. The reference range was not used to interpret this result as normal/abnormal. Lab Interpretation (test code = 27822-6) Abnormal [facility] Arterial Blood Gas.2020-12-06 14:16:33* Test Item Value Reference Range Interpretation Comme nts PH (test code = 2) 7.35-7.45 L PCO2 (test code = 3305214544) See_Comment H [Automated messa ge] The system which generated this result transmitted reference range: 35 - 45 mmHg. The reference range was not used to interpret this result as normal/abnormal. PO2 (test code = 8959206020) See_Comment [Automated messa ge] The system which generated this result transmitted reference range: 80 - 100 mmHg. The reference range was not used to interpret this result as normal/abnormal. HCO3 (test code = 5540871095) See_Comment H [Automated messa ge] The system which generated this result transmitted reference range: 22 - 26 mEq/L. The reference range was not used to interpret this result as normal/abnormal. BE (test code = 4418275194) See_Comment H [Automated messa ge] The system which generated this result transmitted reference range: -3.0 - 3.0 mEq/L. The reference range was not used to interpret this result as normal/abnormal. Lab Interpretation (test code = 94065-7) Abnormal [facility] Arterial Blood Gas.2020-12-06 10:52:41* Test Item Value Reference Range Interpretation Comme nts PH (test code = 2) 7.35-7.45 L PCO2 (test code = 9966800743) See_Comment H [Automated messa ge] The system which generated this result transmitted reference range: 35 - 45 mmHg. The reference range was not used to interpret this result as normal/abnormal. PO2 (test code = 9813857512) See_Comment L [Automated messa ge] The system which generated this result transmitted reference range: 80 - 100 mmHg. The reference range was not used to interpret this result as normal/abnormal. HCO3 (test code = 7613921668) See_Comment H [Automated messa ge] The system which generated this result transmitted reference range: 22 - 26 mEq/L. The reference range was not used to interpret this result as normal/abnormal. BE (test code = 1052252740) See_Comment H [Automated messa ge] The system which generated this result transmitted reference range: -3.0 - 3.0 mEq/L. The reference range was not used to interpret this result as normal/abnormal. Lab Interpretation (test code = 97304-4) Abnormal [facility] Arterial Blood Gas.2020-12-06 06:30:18* Test Item Value Reference Range Interpretation Comme nts PH (test code = 2) 7.35-7.45 PCO2 (test code = 7403088570) See_Comment H [Automated messa ge] The system which generated this result transmitted reference range: 35 - 45 mmHg. The reference range was not used to interpret this result as normal/abnormal. PO2 (test code = 4795307564) See_Comment H [Automated messa ge] The system which generated this result transmitted reference range: 80 - 100 mmHg. The reference range was not used to interpret this result as normal/abnormal. HCO3 (test code = 9164285837) See_Comment H [Automated messa ge] The system which generated this result transmitted reference range: 22 - 26 mEq/L. The reference range was not used to interpret this result as normal/abnormal. BE (test code = 3670569673) See_Comment H [Automated messa ge] The system which generated this result transmitted reference range: -3.0 - 3.0 mEq/L. The reference range was not used to interpret this result as normal/abnormal. Lab Interpretation (test code = 00861-7) [id number] 04:42:30* Test Item Value Reference Range Interpretation Comme nts WBC (test code = 6690-2) See_Comment H [Automated messa ge] The system which generated this result transmitted reference range: 4.30 - 11.10 10*3/?L. The reference range was not used to interpret this result as normal/abnormal. RBC (test code = 789-8) See_Comment [Automated messa ge] The system which generated this result transmitted reference range: 3.93 - 5.25 10*6/?L. The reference range was not used to interpret this result as normal/abnormal. HGB (test code = 718-7) 13.0 g/dL 11.6-15.0 HCT (test code = 4544-3) 41.5 % 35.7-45.2 MCV (test code = 787-2) 97.9 fL 80.6-95.5 H MCH (test code = 785-6) 30.7 pg 25.9-32.8 MCHC (test code = 786-4) 31.3 g/dL 31.6-35.1 L RDW-SD (test code = 92320-1) 47.8 fL 39.0-49.9 RDW-CV (test code = 788-0) 13.3 % 12.0-15.5 PLT (test code = 777-3) See_Comment H [Automated messa ge] The system which generated this result transmitted reference range: 166 - 358 10*3/?L. The reference range was not used to interpret this result as normal/abnormal. MPV (test code = 48163-0) 8.9 fL 9.5-12.9 L NRBC/100 WBC (test code = 0366881915) See_Comment [Automated [email or web address] ssage] The system which generated this result transmitted reference range: 0.0 - 10.0 /100 WBCs. The reference range was not used to interpret this result as normal/abnormal. NRBC x10^3 (test code = 1910180371) <0.01 See_Comment [Automated messa ge] The system which generated this result transmitted reference range: 10*3/?L. The reference range was not used to interpret this result as normal/abnormal. GRAN MAT (NEUT) % (test code = 770-8) 59.5 % IMM GRAN % (test code = 9070728090) 0.70 % LYMPH % (test code = 736-9) 21.1 % MONO % (test code = 5905-5) 14.9 % EOS % (test code = 713-8) 3.3 % BASO % (test code = 706-2) 0.5 % GRAN MAT x10^3(ANC) (test code = 5938366294) 7.83 10*3/uL 1.88-7.09 H IMM GRAN x10^3 (test code = 7644482713) 0.09 10*3/uL 0.00-0.06 H LYMPH x10^3 (test code = 731-0) 2.77 10*3/uL 1.32-3.29 MONO x10^3 (test code = 742-7) 1.95 10*3/uL 0.33-0.92 H EOS x10^3 (test code = 711-2) 0.43 10*3/uL 0.03-0.39 H BASO x10^3 (test code = 704-7) 0.06 10*3/uL 0.01-0.07 Lab Interpretation (test code = 94995-3) [facility] [id number] 04:32:22No acute intrathoracic abnormality. Preliminary Report Dictated by Resident: Harish Brasher MD., have reviewed this study and agree withthe above report.PROCEDURE: XRCHEST 1 VW CLINICAL INDICATION: SOB. HX of lung CA, COPD COMPARISON: Chest radiograph dated 04/27/2020. FINDINGS: Multiple surgical clips projects over the right hilum. Changes of COPD. Nofocal consolid ation is identified. No pleural effusion or pneumothorax isseen. The cardiomediastinal silhouette is unchanged.No acute bony abnormality. [facility], Radiant Results Inft User - 12/05/2020 11:33 PM CDTPROCEDURE: XR CHEST 1 VWCLINICAL INDICATION: SOB. HX of lung CA, COPD COMPARISON: Chest radiograph dated04/27/2020.FINDINGS:Multiple surgical clips projects over the right hilum. Changes of COPD. Nofocal consolidation is identified. No pleural effusion or pneumothorax isseen. The cardiomediastinal silhouette is unchanged.No acute bony abnormality.IMPRESSIONNo acute intrathoracic abnormality.PreliminaryReport Dictated by Resident: Harish Rivas MD., have reviewed this study and agree withthe above report.[facility].2020-12-06 04:13:17* Test Item Value Reference Range Interpretation Comme nts PH (test code = 2) 7.35-7.45 L PCO2 (test code = 8564940634) See_Comment H [Automated messa ge] The system which generated this result transmitted reference range: 35 - 45 mmHg. The reference range was not used to interpret this result as normal/abnormal. PO2 (test code = 4357062549) See_Comment H [Automated messa ge] The system which generated this result transmitted reference range: 80 - 100 mmHg. The reference range was not used to interpret this result as normal/abnormal. HCO3 (test code = 6737073249) See_Comment H [Automated messa ge] The system which generated this result transmitted reference range: 22 - 26 mEq/L. The reference range was not used to interpret this result as normal/abnormal. BE (test code = 9576419888) See_Comment H [Automated messa ge] The system which generated this result transmitted reference range: -3.0 - 3.0 mEq/L. The reference range was not used to interpret this result as normal/abnormal. Lab Interpretation (test code = 09355-7) Abnormal [facility] [id number] 04:09:01* Test Item Value Reference Range Interpretation Comme nts TROPONIN I (test code = 7731282940) <0.012 See_Comment [Automated message] The system which generated this result transmitted reference range: <=0.034 ng/mL. The reference range was not used to interpret this result as normal/abnormal. DAO (test code = DAO) Equal or Less than 0.034 ng/ml---Normal ?Note: Cardiac troponin begins to rise 3-4 hours after the onset of ischemia. Repeat in 4-6 hours if the sample was drawn within 3-4 hours of the onset of the symptom and found normal. Between 0.035 and 0.120 ng/mL--- Borderline. Questionable myocardial injury or necrosis ? ?Note: Serial measurement may be necessary to confirm or exclude the diagnosis of myocardial injury or necrosis; Clinical correlation (symptoms, EKGs, imaging studies, and others) required; Repeat in 4-6 hours if clinically indicated. ? Equal or Higher than 0.121 ng/mL---Abnormal. Myocardial Injury or Necrosis Likely ? Biotin has been reported to cause a negative bias, interpret results relative to patient's use of biotin. ? Lab Interpretation (test code = 10094-2) [facility] ([id number])2020-12-06 04:03:24* Test Item Value Reference Range Interpretation Comme nts NA (test code = 8683043644) 131 mmol/L 135-145 L K (test code = 8372033635) 4.4 mmol/L 3.5-5.0 CL (test code = 8545651720) 85 mmol/L 98-108 L CO2 TOTAL (test code = 8184813802) 39 mmol/L 23-31 H AGAP (test code = 2896960449) 2-16 BUN (test code = 3142133278) 26 mg/dL 7-23 H GLUCOSE (test code = 4254157124) 107 mg/dL 70-110 CREATININE (test code = 8094719183) 0.85 mg/dL 0.50-1.04 TOTAL BILI (test code = 9406606042) 0.5 mg/dL 0.1-1.1 CALCIUM (test code = 9285111786) 9.1 mg/dL 8.6-10.6 T PROTEIN (test code = 5817755216) 7.1 g/dL 6.3-8.2 ALBUMIN (test code = 6023794994) 4.5 g/dL 3.5-5.0 ALK PHOS (test code = 0550633611) 46 U/L 34-122 ALTv (test code = 1742-6) 18 U/L 5-35 AST(SGOT) (test code = 7091164308) 28 U/L 13-40 eGFR Calculation (Non-) (test code = 6036901885) mL/min/1.73m2 eGFR Calculation () (test code = 8107251223) mL/min/1.73m2 DAO (test code = DAO) Association of Glomerular Filtration Rate (GFR) and Staging of Kidney Disease* + --+ --+ ------+| GFR (mL/min/1.73 m2) ?| With Kidney Damage ?| ?Without Kidney Damage+ --------+ --------+ +| ?>90 ?| ?Stage one ?| ? Normal ?+ ---+ ---+ -------+| ?60-89 ?| ?Stage two ?| ? Decreased GFR ? + --+ --+ ------+| ?30-59 ?| ?Stage three ?| ? Stage three ? + --+ --+ ------+| ?15-29 ?| ?Stage four ? | ? Stage four ?+ ---+ ---+ -------+| ?<15 (or dialysis) ? ?| ?Stage five ? | ? Stage five ?+ ---+ ---+ -------+ *Each stage assumes the associated GFR level has been in effect for at least three months. ?Stages 1 to 5, with or without kidney disease, indicate chronic kidney disease. Notes: Determination of stages one and two (with eGFR >59mL/min/1.73 m2) requires estimation of kidney damage for at least three months as defined by structural or functional abnormalities of the kidney, manifested by either:Pathological abnormalities or Markers of kidney damage (including abnormalities in the composition of the blood or urine or abnormalities in imaging tests). Lab Interpretation (test code = 73662-1) [facility] NOW RAPID TESTING)2020-12-06 03:59:20* Test Item Value Reference Range Interpretation Comme nts SARS-CoV-2 Rapid ID NOW (test code = 56526-2) Not Detected Not Detected DAO (test code = DAO) ID NOW COVID-19 As say is an isothermal nucleic acid amplification test intended for the qualitative detection of nucleic acid from SARS-CoV-2 viral RNA in nasopharyngeal (DISTRICT COURT REPORTER) specimens. It is used under Emergency Use Authorization (EUA) by FDA. The limit of detection (LOD) of the assay is 125 Genome Equivalents/mL. A positive result is indicative of the presence of SARS-CoV-2 RNA. ?Clinical correlation with patient history and other diagnostic [...] for repeat patient testing if clinically indicated. Lab Interpretation (test code = 03997-0) [facility] 03:57:39* Test Item Value Reference Range Interpretation Comme nts MAGNESIUM (test code = 2778310075) 2.0 mg/dL 1.7-2.4 Lab Interpretation (test cod e = 19923-7) Normal [facility] ([id number])2020-08-04 17:53:00* Test Item Value Reference Range Interpretation Comme nts NA (test code = 2170349050) 133 mmol/L 135-145 L K (test code = 1913591388) 4.5 mmol/L 3.5-5 CL (test code = 9808609175) 95 mmol/L 98-108 L CO2 TOTAL (test code = 2021638352) 35 mmol/L 23-31 H AGAP (test code = 8252206785) 2-16 BUN (test code = 3092898342) 12 mg/dL 7-23 GLUCOSE (test code = 9285170679) 86 mg/dL 70-110 CREATININE (test code = 8040953250) 0.67 mg/dL 0.5-1.04 TOTAL BILI (test code = 7806103241) 0.7 mg/dL 0.1-1.1 CALCIUM (test code = 9498186784) 9.7 mg/dL 8.6-10.6 T PROTEIN (test code = 1779164186) 6.5 g/dL 6.3-8.2 ALBUMIN (test code = 9857494173) 4.3 g/dL 3.5-5 ALK PHOS (test code = 2158790589) 68 U/L 34-122 ALTv (test code = 1742-6) 19 U/L 5-35 AST(SGOT) (test code = 1998030953) 26 U/L 13-40 eGFR Calculation (Non-) (test code = 9511179375) mL/min/1.73m2 eGFR Calculation () (test code = 3108973907) mL/min/1.73m2 DAO (test code = DAO) Association of Glomerular Filtration Rate (GFR) and Staging of Kidney Disease* + --+ --+ ------+| GFR (mL/min/1.73 m2) ?| With Kidney Damage ?| ?Without Kidney Damage+ --------+ --------+ +| ?>90 ?| ?Stage one ?| ? Normal ?+ ---+ ---+ -------+| ?60-89 ?| ?Stage two ?| ? Decreased GFR ? + --+ --+ ------+| ?30-59 ?| ?Stage three ?| ? Stage three ? + --+ --+ ------+| ?15-29 ?| ?Stage four ? | ? Stage four ?+ ---+ ---+ -------+| ?<15 (or dialysis) ? ?| ?Stage five ? | ? Stage five ?+ ---+ ---+ -------+ *Each stage assumes the associated GFR level has been in effect for at least three months. ?Stages 1 to 5, with or without kidney disease, indicate chronic kidney disease. Notes: Determination of stages one and two (with eGFR >59mL/min/1.73 m2) requires estimation of kidney damage for at least three months as defined by structural or functional abnormalities of the kidney, manifested by either:Pathological abnormalities or Markers of kidney damage (including abnormalities in the composition of the blood or urine or abnormalities in imaging tests). Lab Interpretation (test code = 55408-5) [facility]2020-[facility] 17:42:00* Test Item Value Reference Range Interpretation Comme nts APPEARANCE (test code = 0998669421) Clear Clear COLOR (test code = 1069254314) Yellow Yellow PH (test code = 1575539168) 4.8-8.0 SP GRAVITY (test code = 7329022911) 1.003-1.030 GLU U QUAL (test code = 3186769364) Normal Normal BLOOD (test code = 3171576937) Negative Negative KETONES (test code = 6174237513) Negative Negative PROTEIN (test code = 2887-8) Negative Negative UROBILIN (test code = 4518524820) Normal Normal BILIRUBIN (test code = 9130785850) Negative Negative NITRITE (test code = 2254723256) Negative Negative LEUK DAISHA (test code = 2992114359) Negative Negative RBC/HPF (test code = 4023678179) See_Comment [[employer]] The system which generated this result transmitted reference range: 0 - 3 HPF. The reference range was not used to interpret this result as normal/abnormal. WBC/HPF (test code = 2890248892) See_Comment [Automated [employer]] The system which generated this result transmitted reference range: 0 - 5 HPF. The reference range was not used to interpret this result as normal/abnormal. BACTERIA (test code = 2885753839) Negative Negative MUCOUS (test code = 6799708019) Slight Negative LPF A SQ EPITH (test code = 9791558498) HPF HYAL CAST (test code = 8672659865) See_Comment [Automated [employer]] The system which generated this result transmitted reference range: <=2 LPF. The reference range was not used to interpret this result as normal/abnormal. Lab Interpretation (test code = 96681-5) [facility] [id number] 17:36:08CT Abdomen and Pelvis without contrast. CLINICAL HISTORY: ?FLANK PAIN WITH HEMATURIA. R/O RENAL STONES. TECHNIQUE: Multidetector helical CT acquisition was obtained from the lungbases to the greater trochanters without oral and IV contrast. ?The imageswere reviewed in lung, bone, and soft tissue windows. FINDINGS: ?Absence of intravenous contrast limits evaluation of the solidorgans. Evaluation of the bowel is also limited by lack of oral contrast. Lower lungs: Clear. No pleural effusion or pericardial effusion. Liver, Gallbladder and Spleen: Multiple gallstones without any signs ofacute jim cystitis. A 13 mm low-density lesion in the right lobe of theliver, likely incidental cyst (segment#8). Liver is 12.5 cm and spleenmeasures approximately 7.8 x 4 cm. Peritoneum: ?No free air or freefluid. No lymphadenopathy. Pancreas and Adrenals: ?Unremarkable pancreas and adrenal glands. Kidneys and Ureters: ?No visible calculi in the renal collecting systems. No hydroureter or hydronephrosis. ? Vessels: Atherosclerosis. No AAA. Retroperitoneum: No abnormal fluid or lymphadenopathy. Bowel: No acute findings. Normal appendix is visualized. Constipation notedalthough most of the retained fecal material is located in the right sideof large bowel. Bladder ?and Reproductive Organs: No gross pathology in the uterus oradnexa. Urinary bladder is collapsed and showed no gross pathology. Bones:Fracture of a plate of L5 with loss of 40% of its height. Fractureis probably old.Multilevel degenerative disc disease. Diffuse sclerosis is noted involvingright and left femur without any collapse of the articular surface.Bilateral sacroiliac joint arthritis is noted. Soft tissues: 5 cm size midline supraumbilical abdominal wall hernia withfat and blood vessels in it without any apparent complications. CONCLUSION:1. No acute intra-abdominal or pelvic abnormalities detected. Specificallyno kidney stones or hydronephrosis.2. Gallstones without any acute changes. [facility], Radiant Results Inft User- 08/04/2020 11:37 AM CSTCT Abdomen and Pelvis without contrast.CLINICAL HISTORY: FLANK PAIN WITH HEMATURIA. R/O RENAL STONES.TECHNIQUE: Multidetector helical CT acquisition was obtained from the lungbases to the greater trochanters without oral and IV contrast. The imageswere reviewed in lung, bone, and soft tissue windows.FINDINGS: Absence of intravenous contrast limits evaluation of the solidorgans. Evaluation of the bowel is also limited by lack of oral contrast. Lower lungs: Clear. No pleural effusion or pericardial effusion.Liver, Gallbladder and Spleen: Multiple gallstones without any signs ofacute cholecystitis. A 13 mm low-density lesion in the right lobe of theliver, likely incidental cyst (segment #8). Liver is 12.5 cm and spleenmeasures approximately 7.8 x 4 cm.Peritoneum: No free air or free fluid. No lymphadenopathy.Pancreas and Adrenals: Unremarkable pancreas and adrenal glands.Kidneys and Ureters: No visible calculi in the renal collecting systems. No hydroureter or hydronephrosis. Vessels: Atherosclerosis. No AAA.Retroperitoneum: No abnormal fluid or lymphadenopathy.Bowel: No acute findings. Normal appendix is visualized. Constipation notedalthough most of the retained fecal material is located in the right sideof large bowel.Bladder and Reproductive Organs: No gross pathology in the uterus oradnexa. Urinary bladder is collapsed and showed no gross pathology. Bones: Fracture of a plate of L5 with loss of 40% of its height. Fractureis probably old.Multilevel degenerative disc disease. Diffuse sclerosis is noted involvingright and left femur without any collapse of the articular surface.Bilateral sacroiliac joint arthritis is noted.Soft tissues: 5 cm size midline supraumbilical abdominal wall hernia withfat and blood vessels in it without any apparent complications.CONCLUSION:1. No acute intra-abdominal or pelvic abnormalities detected. Specificallyno kidney stones or hydronephrosis.2. Gallstones without any acute changes.[facility] WITH [id number] 17:30:00* Test Item Value Reference Range Interpretation Comme nts WBC (test code = 6690-2) See_Comment H [Automated messa ge] The system which generated this result transmitted reference range: 4.30 - 11.10 10*3/?L. The reference range was not used to interpret this result as normal/abnormal. RBC (test code = 789-8) See_Comment [Automated messa ge] The system which generated this result transmitted reference range: 3.93 - 5.25 10*6/?L. The reference range was not used to interpret this result as normal/abnormal. HGB (test code = 718-7) 13.7 g/dL 11.6-15 HCT (test code = 4544-3) 41.5 % 35.7-45.2 MCV (test code = 787-2) 92.8 fL 80.6-95.5 MCH (test code = 785-6) 30.6 pg 25.9-32.8 MCHC (test code = 786-4) 33.0 g/dL 31.6-35.1 RDW-SD (test code = 54849-5) 46.5 fL 39-49.9 RDW-CV (test code = 788-0) 13.5 % 12-15.5 PLT (test code = 777-3) See_Comment [Automated messa ge] The system which generated this result transmitted reference range: 166 - 358 10*3/?L. The reference range was not used to interpret this result as normal/abnormal. MPV (test code = 19859-0) 8.4 fL 9.5-12.9 L NRBC/100 WBC (test code = 1306853977) See_Comment [Automated [email or web address] ssage] The system which generated this result transmitted reference range: 0.0 - 10.0 /100 WBCs. The reference range was not used to interpret this result as normal/abnormal. NRBC x10^3 (test code = 6583162687) <0.01 See_Comment [Automated messa ge] The system which generated this result transmitted reference range: 10*3/?L. The reference range was not used to interpret this result as normal/abnormal. GRAN MAT (NEUT) % (test code = 770-8) 59.9 % IMM GRAN % (test code = 0094780597) 0.80 % LYMPH % (test code = 736-9) 27.4 % MONO % (test code = 5905-5) 10.2 % EOS % (test code = 713-8) 1.1 % BASO % (test code = 706-2) 0.6 % GRAN MAT x10^3(ANC) (test code = 7646488630) 7.14 10*3/uL 1.88-7.09 H IMM GRAN x10^3 (test code = 7193657812) 0.09 10*3/uL 0-0.06 H LYMPH x10^3 (test code = 731-0) 3.27 10*3/uL 1.32-3.29 MONO x10^3 (test code = 742-7) 1.22 10*3/uL 0.33-0.92 H EOS x10^3 (test code = 711-2) 0.13 10*3/uL 0.03-0.39 BASO x10^3 (test code = 704-7) 0.07 10*3/uL 0.01-0.07 Lab Interpretation (test code = 51255-3) [facility] [id number] 16:14:00* Test Item Value Reference Range Interpretation Comme nts Adenovirus (test code = 30699-7) Negative Negative Coronavirus HKU1 (test code = 92064-4) Negative Negative Coronavirus NL63 (test code = 96817-1) Negative Negative Coronavirus 229E (test code = 35470-2) Negative Negative Coronavirus OC43 (test code = 04222-1) Negative Negative Human Metapneumovirus (test code = 04580-7) Negative Negative Human Rhinovirus/Enterovirus (test code = 92245-2) Negative Negative Influenza A (test code = 54216-3) Negative Negative Influenza B (test code = 23624-3) Negative Negative Parainfluenza Virus 1 (test code = 51863-9) Negative Negative Parainfluenza Virus 2 (test code = 64563-6) Negative Negative Parainfluenza Virus 3 (test code = 05630-0) Negative Negative Parainfluenza Virus 4 (test code = 56752-1) Negative Negative Respiratory Syncytial Virus (test code = 69893-2) Negative Negative Bordetella parapertussis (test code = 31678-6) Negative Negative Bordetella pertussis (test code = 92426-5) Negative Negative Chlamydia pneumoniae (test code = 67637-4) Negative Negative Mycoplasma pneumoniae (test code = 01247-8) Negative Negative DAO (test code = DAO) Negative:A negativ e result does not rule-out infection. ?This assay does not test for all potential infectious agents. ? Positive:A positive test result does not necessarily indicate the presence of viable organism. ? Lab Interpretation (test code = 20112-9) [facility] [id number] 14:48:00* Test Item Value Reference Range Interpretation Comme nts SARS-CoV-2 PCR (test code = 68654-6) Not Detected Not Detected DAO (test code = DAO) CepPoly Adaptive Xpert ?Xpr ess SARS-CoV-2 Assay is a rapid, real-time RT-PCR test intended for the qualitative detection of nucleic acid from the SARS-CoV-2 in nasopharyngeal ([address] REPORTER) specimens. It is used under Emergency Use Authorization (EUA) by FDA. A positive result is indicative of the presence of SARS-CoV-2 RNA. ?Clinical correlation with patient history and other diagnostic information is necessary to determine patient infection status. A negative (Not Detected) result does not preclude SARS-CoV-2 infection. A negative result does not rule out the presence of PCR inhibitors in the patient specimen or SARS-CoV-2 virus RNA concentrations below the limit of detection by the assay. Clinical correlation with patient history and other diagnostic information should be used in patient management decisions. Invalid: Please collect a new specimen for repeat patient testing if clinically indicated. Lab Interpretation (test code = 69216-1) Normal [facility]PNE[facility]OCCAL [id number] 14:11:00* Test Item Value Reference Range Interpretation Comme nts S. pneumoniae antigen (test code = 7088486116) Negative Negative Lab Interpretation (test cod e = 98989-1) Normal [facility]LEGIONELLA URINARY ANTIGEN [id number] 14:08:00* Test Item Value Reference Range Interpretation Comme nts Legionella Urinary Antigen (test code = 1903313281) Negative Negative DAO (test code = DAO) Negative for L. pneumophilia serogroup I antigen in urine suggesting no recent or current infection. Infection due to Legionella cannot be ruled out since other serogroups and species may cause disease. Furthermore, antigens may not be present in urine during early stage of infection, or the level of antigen present in urine may be below the detection limit of the test. Lab Interpretation (test code = 26548-7) Normal [facility] HospitalPROCALCITONIN2020-08-06 13:44:00* Test Item Value Reference Range Interpretation Comme nts Procalcitonin (test code = 5818510942) 0.04 ng/mL <0.07 DAO (test code = DAO) INTERPRETATION OF PROCALCITONIN RESULTS IN ADULTS >= 18 YEARS OF AGE Initiation and discontinuation of antibiotics on patients with suspected or confirmed Lower Respiratory Tract Infection in Adults >= 18 years of age. + +-------- --------+ + -----+|Procalcitonin |Interpretation ?|Antibiotic ? ? |Considerations ? |ng/mL ? | ?|recommendation | ? + +-------- --------+ + -----+| <0.1 ? | Bacterial ? ? ?| Strongly ? ? ?| ? | ?| infection very | discouraged ? | Overruling: ? | ?| unlikely ? ? ? | ? | ? Clinically unstable ? ? ? + +-------- --------+ + ? High risk for adverse ? ? | <0.25 ?| Bacterial ? ? ?| Discouraged ? | ? outcome ? | ?| infection ? ? ?| ? | ? SEE IMPORTANT NOTE ?| ?| unlikely ? ? ? | ? | ? + +-------- --------+ + -----+| >=0.25 ? ? ? | Bacterial ? ? ?| Encouraged ? ?| ? | ?| infection ? ? ?| ? | ? | ?| likely ? | ? | Consider treatment failure ?+ +------- ---------+ -+ if levels does not decrease | >0.5 ? | Bacterial ? ? ?| Strongly ? ? ?| appropriately ? | ?| infection very | encouraged ? ?| ? | ?| likely ? | ? | ? + +-------- --------+ + -----+ Discontinuation of antibiotics in high-acuity patients with suspected or confirmed sepsis in Adults >= 18 years of age. + +-------- --------+ + -----+|Procalcitonin |Interpretation ?|Antibiotic ? ? |Considerations ? |ng/mL ? | ?|recommendation | ? + +-------- --------+ + -----+| <0.25 ?| Bacterial ? ? ?| Strongly ? ? ?| ? | ?| infection very | discouraged ? | Overruling: ? | ?| unlikely ? ? ? | ? | ? Clinically unstable ? ? ? + +-------- --------+ + ? High risk for adverse ? ? | <0.5 or drop | Bacterial ? ? ?| Discouraged ? | ? outcome ? | >80% from ? ?| infection ? ? ?| ? | ? SEE IMPORTANT NOTE ?| highest PCT ?| unlikely ? ? ? | ? | ? | level ?| ?| ? | ? + +-------- --------+ + -----+| >=0.5 ?| Bacterial ? ? ?| Encouraged ? ?| ? | ?| infection ? ? ?| ? | ? | ?| likely ? | ? | Consider treatment failure ?+ +------- ---------+ -+ if levels does not decrease | >1.0 ? | Bacterial ? ? ?| Strongly ? ? ?| appropriately ? | ?| infection very | encouraged ? ?| ? | ?| likely ? | ? | ? + +-------- --------+ + -----+ Percentage of drop of Procalcitonin calculation for Discontinuation of antibiotics in high-acuity patients with suspected or confirmed sepsis in Adults >= 18 years of age. ? Procalcitonin highest{}-Procalcitonin current{}Delta Procalcitonin = x100% ? Procalcitonin current {} IMPORTANT NOTE: Procalcitonin may be elevated without bacterial infection by physiologic stress related to trauma, ortiz, chronic dialysis, metastatic cancer, surgery in the past seven days, malaria, some fungal infections, and some forms of vasculitis. The interpretation algorithm may not apply to patients with immunosuppression (equivalent of >10 mg of prednisone daily), HIV with CD4 cell count < 350 cells/mm3, active malignancy on systemic chemotherapy, solid organ transplant or hematopoietic stem cell transplantation, or hospital acquired pneumonia. Additionally, some clinical trials of procalcitonin have excluded patients with shock requiring vasopressor use, acute respiratory failure requiring mechanical ventilation, or those with known lung abscess/empyema. For further information please refer to:[email or web address] Lab Interpretation (test code = 90861-9) Normal [facility] HospitalCOMP. METABOLIC PANEL (48123)2020-04-28 11:21:00* Test Item Value Reference Range Interpretation Comme nts NA (test code = 6269694851) 132 mmol/L 135-145 L K (test code = 6012468203) 4.7 mmol/L 3.5-5 CL (test code = 9089856926) 90 mmol/L 98-108 L CO2 TOTAL (test code = 6673503951) 39 mmol/L 23-31 H AGAP (test code = 8964849410) 2-16 BUN (test code = 9738556578) 15 mg/dL 7-23 GLUCOSE (test code = 7348145383) 144 mg/dL 70-110 H CREATININE (test code = 3673171110) 0.54 mg/dL 0.5-1.04 TOTAL BILI (test code = 3612937234) 0.4 mg/dL 0.1-1.1 CALCIUM (test code = 3557178043) 8.8 mg/dL 8.6-10.6 T PROTEIN (test code = 2703267883) 6.4 g/dL 6.3-8.2 ALBUMIN (test code = 8442496500) 3.6 g/dL 3.5-5 ALK PHOS (test code = 9116542385) 40 U/L 34-122 ALTv (test code = 1742-6) 22 U/L 5-35 AST(SGOT) (test code = 2706034235) 30 U/L 13-40 eGFR Calculation (Non-) (test code = 8162355885) mL/min/1.73m2 eGFR Calculation () (test code = 6337327515) mL/min/1.73m2 DAO (test code = DAO) Association of Glomerular Filtration Rate (GFR) and Staging of Kidney Disease* + --+ --+ ------+| GFR (mL/min/1.73 m2) ?| With Kidney Damage ?| ?Without Kidney Damage+ --------+ --------+ +| ?>90 ?| ?Stage one ?| ? Normal ?+ ---+ ---+ -------+| ?60-89 ?| ?Stage two ?| ? Decreased GFR ? + --+ --+ ------+| ?30-59 ?| ?Stage three ?| ? Stage three ? + --+ --+ ------+| ?15-29 ?| ?Stage four ? | ? Stage four ?+ ---+ ---+ -------+| ?<15 (or dialysis) ? ?| ?Stage five ? | ? Stage five ?+ ---+ ---+ -------+ *Each stage assumes the associated GFR level has been in effect for at least three months. ?Stages 1 to 5, with or without kidney disease, indicate chronic kidney disease. Notes: Determination of stages one and two (with eGFR >59mL/min/1.73 m2) requires estimation of kidney damage for at least three months as defined by structural or functional abnormalities of the kidney, manifested by either:Pathological abnormalities or Markers of kidney damage (including abnormalities in the composition of the blood or urine or abnormalities in imaging tests). Lab Interpretation (test code = 50773-5) Abnormal [facility] WITH [id number] 10:16:00* Test Item Value Reference Range Interpretation Comme nts WBC (test code = 6690-2) See_Comment [Automated messa ge] The system which generated this result transmitted reference range: 4.30 - 11.10 10*3/?L. The reference range was not used to interpret this result as normal/abnormal. RBC (test code = 789-8) See_Comment [Automated messa ge] The system which generated this result transmitted reference range: 3.93 - 5.25 10*6/?L. The reference range was not used to interpret this result as normal/abnormal. HGB (test code = 718-7) 12.7 g/dL 11.6-15 HCT (test code = 4544-3) 40.2 % 35.7-45.2 MCV (test code = 787-2) 99.3 fL 80.6-95.5 H MCH (test code = 785-6) 31.4 pg 25.9-32.8 MCHC (test code = 786-4) 31.6 g/dL 31.6-35.1 RDW-SD (test code = 72394-3) 51.8 fL 39-49.9 H RDW-CV (test code = 788-0) 14.2 % 12-15.5 PLT (test code = 777-3) See_Comment [Automated messa ge] The system which generated this result transmitted reference range: 166 - 358 10*3/?L. The reference range was not used to interpret this result as normal/abnormal. MPV (test code = 58355-1) 9.6 fL 9.5-12.9 NRBC/100 WBC (test code = 9610488222) See_Comment [Automated [email or web address] ssage] The system which generated this result transmitted reference range: 0.0 - 10.0 /100 WBCs. The reference range was not used to interpret this result as normal/abnormal. NRBC x10^3 (test code = 0962816390) <0.01 See_Comment [Automated messa ge] The system which generated this result transmitted reference range: 10*3/?L. The reference range was not used to interpret this result as normal/abnormal. GRAN MAT (NEUT) % (test code = 770-8) 86.5 % IMM GRAN % (test code = 2348393542) 0.50 % LYMPH % (test code = 736-9) 10.7 % MONO % (test code = 5905-5) 2.1 % EOS % (test code = 713-8) 0.0 % BASO % (test code = 706-2) 0.2 % GRAN MAT x10^3(ANC) (test code = 4113207067) 4.86 10*3/uL 1.88-7.09 IMM GRAN x10^3 (test code = 2191506242) 0.03 10*3/uL 0-0.06 LYMPH x10^3 (test code = 731-0) 0.60 10*3/uL 1.32-3.29 L MONO x10^3 (test code = 742-7) 0.12 10*3/uL 0.33-0.92 L EOS x10^3 (test code = 711-2) <0.03 0.03-0.39 L BASO x10^3 (test code = 704-7) <0.03 0.01-0.07 Lab Interpretation (test code = 85367-6) Abnormal [facility] Arterial Blood Gas.2020-04-28 02:46:00* Test Item Value Reference Range Interpretation Comme nts PH (test code = 2) 7.35-7.45 L PCO2 (test code = 3515476459) See_Comment H [Automated messa ge] The system which generated this result transmitted reference range: 35 - 45 mmHg. The reference range was not used to interpret this result as normal/abnormal. PO2 (test code = 5904568145) See_Comment L [Automated messa ge] The system which generated this result transmitted reference range: 80 - 100 mmHg. The reference range was not used to interpret this result as normal/abnormal. HCO3 (test code = 9139020435) See_Comment H [Automated messa ge] The system which generated this result transmitted reference range: 22 - 26 mEq/L. The reference range was not used to interpret this result as normal/abnormal. BE (test code = 6253740851) See_Comment H [Automated messa ge] The system which generated this result transmitted reference range: -3.0 - 3.0 mEq/L. The reference range was not used to interpret this result as normal/abnormal. Lab Interpretation (test code = 54712-0) [facility]normal [facility] + LACTIC [id number] 23:01:00* Test Item Value Reference Range Interpretation Comme nts PH (test code = 2) 7.35-7.45 L PCO2 (test code = 3607248227) See_Comment H [Automated messa ge] The system which generated this result transmitted reference range: 35 - 45 mmHg. The reference range was not used to interpret this result as normal/abnormal. PO2 (test code = 3059680538) See_Comment H [Automated messa ge] The system which generated this result transmitted reference range: 80 - 100 mmHg. The reference range was not used to interpret this result as normal/abnormal. HCO3 (test code = 5764121684) See_Comment H [Automated messa ge] The system which generated this result transmitted reference range: 22 - 26 mEq/L. The reference range was not used to interpret this result as normal/abnormal. BE (test code = 7873247311) See_Comment H [Automated messa ge] The system which generated this result transmitted reference range: -3.0 - 3.0 mEq/L. The reference range was not used to interpret this result as normal/abnormal. LACTIC ACID (test code = 1941941545) 0.71 mmol/L Lab Interpretation (test code = 35065-2) [facility] 20:37:00* Test Item Value Reference Range Interpretation Comme nts APPEARANCE (test code = 3723405875) Clear Clear COLOR (test code = 3425157719) Yellow Yellow PH (test code = 3085936841) 4.8-8.0 SP GRAVITY (test code = 0171696652) 1.003-1.030 GLU U QUAL (test code = 4111263268) Normal Normal BLOOD (test code = 3770561287) Negative Negative KETONES (test code = 9589968766) Negative Negative PROTEIN (test code = 2887-8) Negative Negative UROBILIN (test code = 8624643971) Normal Normal BILIRUBIN (test code = 2809190039) Negative Negative NITRITE (test code = 4471650638) Negative Negative LEUK DAISHA (test code = 3617784635) Negative Negative RBC/HPF (test code = 2377479664) See_Comment [Automated messa ge] The system which generated this result transmitted reference range: 0 - 3 HPF. The reference range was not used to interpret this result as normal/abnormal. WBC/HPF (test code = 0525412271) See_Comment [Automated messa ge] The system which generated this result transmitted reference range: 0 - 5 HPF. The reference range was not used to interpret this result as normal/abnormal. BACTERIA (test code = 8405327097) Negative Negative MUCOUS (test code = 8497422581) Slight Negative LPF A HYAL CAST (test code = 1129212872) See_Comment H [Automated messa ge] The system which generated this result transmitted reference range: <=2 LPF. The reference range was not used to interpret this result as normal/abnormal. Lab Interpretation (test code = 07121-1) Abnormal [facility]. METABOLIC PANEL (68055)2020-04-27 17:30:00* Test Item Value Reference Range Interpretation Comme nts NA (test code = 0798419172) 130 mmol/L 135-145 L K (test code = 3955329418) 3.9 mmol/L 3.5-5 CL (test code = 1879437871) 83 mmol/L 98-108 L CO2 TOTAL (test code = 7634763426) 41 mmol/L 23-31 H AGAP (test code = 1750161683) 2-16 BUN (test code = 7465666851) 9 mg/dL 7-23 GLUCOSE (test code = 2240412860) 109 mg/dL 70-110 CREATININE (test code = 2960106595) 0.55 mg/dL 0.5-1.04 TOTAL BILI (test code = 1123490875) 0.5 mg/dL 0.1-1.1 CALCIUM (test code = 1594316830) 9.2 mg/dL 8.6-10.6 T PROTEIN (test code = 4946772731) 7.5 g/dL 6.3-8.2 ALBUMIN (test code = 6499456294) 4.4 g/dL 3.5-5 ALK PHOS (test code = 3369921045) 53 U/L 34-122 ALTv (test code = 1742-6) 28 U/L 5-35 AST(SGOT) (test code = 8922603868) 42 U/L 13-40 H eGFR Calculation (Non-) (test code = 8700507037) mL/min/1.73m2 eGFR Calculation () (test code = 2231647479) mL/min/1.73m2 DAO (test code = DAO) Association of Glomerular Filtration Rate (GFR) and Staging of Kidney Disease* + --+ --+ ------+| GFR (mL/min/1.73 m2) ?| With Kidney Damage ?| ?Without Kidney Damage+ --------+ --------+ +| ?>90 ?| ?Stage one ?| ? Normal ?+ ---+ ---+ -------+| ?60-89 ?| ?Stage two ?| ? Decreased GFR ? + --+ --+ ------+| ?30-59 ?| ?Stage three ?| ? Stage three ? + --+ --+ ------+| ?15-29 ?| ?Stage four ? | ? Stage four ?+ ---+ ---+ -------+| ?<15 (or dialysis) ? ?| ?Stage five ? | ? Stage five ?+ ---+ ---+ -------+ *Each stage assumes the associated GFR level has been in effect for at least three months. ?Stages 1 to 5, with or without kidney disease, indicate chronic kidney disease. Notes: Determination of stages one and two (with eGFR >59mL/min/1.73 m2) requires estimation of kidney damage for at least three months as defined by structural or functional abnormalities of the kidney, manifested by either:Pathological abnormalities or Markers of kidney damage (including abnormalities in the composition of the blood or urine or abnormalities in imaging tests). Lab Interpretation (test code = 50720-8) [facility]normal [facility] 1 [id number] 17:28:55HISTORY: Shortness of breath. TECHNIQUE: Portable AP erect view of the chest is obtained. Comparison madewith 03/04/2020 study. FINDINGS: Mild generalized obstructive lung disease noted. No acutepneumonia. No pneumothorax or pleural effusion or pulmonary congestiondetected. Cardiac size is within normal limits. Right mastectomy noted. CONCLUSIONS: No signs of acute cardiopulmonary disease.[facility], Radiant Results Inft User - 04/27/2020 12:29 PM CDTHISTORY: Shortness of breath.TECHNIQUE: Portable APerect view of the chest is obtained. Comparison madewith 03/04/2020 study.FINDINGS: Mild generalizedobstructive lung disease noted. No acutepneumonia. No pneumothorax or pleural effusion or pulmonary congestiondetected. Cardiac size is within normal limits.Right mastectomy noted.CONCLUSIONS: No signs of acute cardiopulmonary disease.[facility] HospitalTROPONIN [id number] 17:20:00* Test Item Value Reference Range Interpretation Comme nts TROPONIN I (test code = 9611116617) 0.014 ng/mL See_Comment [Automated message] The system which generated this result transmitted reference range: <=0.034. The reference range was not used to interpret this result as normal/abnormal. DAO (test code = DAO) Equal or Less than 0.034 ng/ml---Normal ?Note: Cardiac troponin begins to rise 3-4 hours after the onset of ischemia. Repeat in 4-6 hours if the sample was drawn within 3-4 hours of the onset of the symptom and found normal. Between 0.035 and 0.120 ng/mL--- Borderline. Questionable myocardial injury or necrosis ? ?Note: Serial measurement may be necessary to confirm or exclude the diagnosis of myocardial injury or necrosis; Clinical correlation (symptoms, EKGs, imaging studies, and others) required; Repeat in 4-6 hours if clinically indicated. ? Equal or Higher than 0.121 ng/mL---Abnormal. Myocardial Injury or Necrosis Likely ? Biotin has been reported to cause a negative bias, interpret results relative to patient's use of biotin. ? Lab Interpretation (test code = 61935-2) Normal [facility]N-TERMINAL [id number] 17:17:00* Test Item Value Reference Range Interpretation Comme nts NT-proBNP (test code = 3669840956) 562 pg/mL See_Comment H [Automated message] The system which generated this result transmitted reference range: <=125. The reference range was not used to interpret this result as normal/abnormal. DAO (test code = DAO) Biotin has been reported to cause a negative bias, interpret results relative to patient's use of biotin. Lab Interpretation (test code = 09478-2) Abnormal [facility] HospitalCOVID[facility] (ID NOW RAPID TESTING)2020-04-27 17:11:00* Test Item Value Reference Range Interpretation Comme nts SARS-CoV-2 Rapid ID NOW (test code = 95167-7) Not Detected Not Detected DAO (test code = DAO) ID NOW COVID-19 As say is an isothermal nucleic acid amplification test intended for the qualitative detection of nucleic acid from SARS-CoV-2 viral RNA in nasopharyngeal (DISTRICT [facility] REPORTER) specimens. It is used under Emergency Use Authorization (EUA) by FDA. The limit of detection (LOD) of the assay is 125 Genome Equivalents/mL. A positive result is indicative of the presence of SARS-CoV-2 RNA. ?Clinical correlation with patient history and other diagnostic [...] for repeat patient testing if clinically indicated. Lab Interpretation (test code = 82838-4) Normal [facility] HospitalCB WITH [id number] 17:07:00* Test Item Value Reference Range Interpretation Comme nts WBC (test code = 6690-2) See_Comment H [Automated [employer]] The system which generated this result transmitted reference range: 4.30 - 11.10 10*3/?L. The reference range was not used to interpret this result as normal/abnormal. RBC (test code = 789-8) See_Comment [Automated [employer]] The system which generated this result transmitted reference range: 3.93 - 5.25 10*6/?L. The reference range was not used to interpret this result as normal/abnormal. HGB (test code = 718-7) 14.1 g/dL 11.6-15 HCT (test code = 4544-3) 43.1 % 35.7-45.2 MCV (test code = 787-2) 98.0 fL 80.6-95.5 H MCH (test code = 785-6) 32.0 pg 25.9-32.8 MCHC (test code = 786-4) 32.7 g/dL 31.6-35.1 RDW-SD (test code = 98287-8) 51.9 fL 39-49.9 H RDW-CV (test code = 788-0) 14.4 % 12-15.5 PLT (test code = 777-3) See_Comment [Automated messa ge] The system which generated this result transmitted reference range: 166 - 358 10*3/?L. The reference range was not used to interpret this result as normal/abnormal. MPV (test code = 43348-6) 9.0 fL 9.5-12.9 L NRBC/100 WBC (test code = 9358968119) See_Comment [Automated [email or web address] ssage] The system which generated this result transmitted reference range: 0.0 - 10.0 /100 WBCs. The reference range was not used to interpret this result as normal/abnormal. NRBC x10^3 (test code = 3623512299) See_Comment [Automated messa ge] The system which generated this result transmitted reference range: 10*3/?L. The reference range was not used to interpret this result as normal/abnormal. GRAN MAT (NEUT) % (test code = 770-8) 49.0 % IMM GRAN % (test code = 0038840992) 0.80 % LYMPH % (test code = 736-9) 37.4 % MONO % (test code = 5905-5) 11.0 % EOS % (test code = 713-8) 1.2 % BASO % (test code = 706-2) 0.6 % GRAN MAT x10^3(ANC) (test code = 7834738900) 6.10 10*3/uL 1.88-7.09 IMM GRAN x10^3 (test code = 4524383731) 0.10 10*3/uL 0-0.06 H LYMPH x10^3 (test code = 731-0) 4.66 10*3/uL 1.32-3.29 H MONO x10^3 (test code = 742-7) 1.37 10*3/uL 0.33-0.92 H EOS x10^3 (test code = 711-2) 0.15 10*3/uL 0.03-0.39 BASO x10^3 (test code = 704-7) 0.08 10*3/uL 0.01-0.07 H Lab Interpretation (test code = 85876-1) Abnormal [facility] HospitalCORTISOL [id number] 23:04:00* Test Item Value Reference Range Interpretation Comme nts THEA AM (test code = 1486593534) 10.0 ug/dL 4.5-23 DAO (test code = DAO) Biotin has been reported to cause a positive bias, interpret results relative to patient's use of biotin. Lab Interpretation (test code = 04556-3) Normal [facility] (NA, K, CL, CO2, GLUCOSE, BUN, CREATININE, CA)2020-03-05 18:25:00* Test Item Value Reference Range Interpretation Comme nts NA (test code = 5288393800) 133 mmol/L 135-145 L K (test code = 6135884578) 4.8 mmol/L 3.5-5 CL (test code = 7570396427) 90 mmol/L 98-108 L CO2 TOTAL (test code = 3260186784) 40 mmol/L 23-31 H AGAP (test code = 7353675824) 2-16 BUN (test code = 8779309313) 15 mg/dL 7-23 GLUCOSE (test code = 7278286852) 211 mg/dL 70-110 H CREATININE (test code = 3949262657) 0.47 mg/dL 0.5-1.04 L CALCIUM (test code = 8451695259) 8.6 mg/dL 8.6-10.6 eGFR Calculation (Non-) (test code = 7157742092) mL/min/1.73m2 eGFR Calculation () (test code = 5388902128) mL/min/1.73m2 DAO (test code = DAO) Association of Glomerular Filtration Rate (GFR) and Staging of Kidney Disease* + --+ --+ ------+| GFR (mL/min/1.73 m2) ?| With Kidney Damage ?| ?Without Kidney Damage+ --------+ --------+ +| ?>90 ?| ?Stage one ?| ? Normal ?+ ---+ ---+ -------+| ?60-89 ?| ?Stage two ?| ? Decreased GFR ? + --+ --+ ------+| ?30-59 ?| ?Stage three ?| ? Stage three ? + --+ --+ ------+| ?15-29 ?| ?Stage four ? | ? Stage four ?+ ---+ ---+ -------+| ?<15 (or dialysis) ? ?| ?Stage five ? | ? Stage five ?+ ---+ ---+ -------+ *Each stage assumes the associated GFR level has been in effect for at least three months. ?Stages 1 to 5, with or without kidney disease, indicate chronic kidney disease. Notes: Determination of stages one and two (with eGFR >59mL/min/1.73 m2) requires estimation of kidney damage for at least three months as defined by structural or functional abnormalities of the kidney, manifested by either:Pathological abnormalities or Markers of kidney damage (including abnormalities in the composition of the blood or urine or abnormalities in imaging tests). Lab Interpretation (test code = 09691-5) [facility] [id number] 17:21:23 FINDINGS/IMPRESSION: Hyperinflated lungs with flattening of bilateral hemidiaphragms and upperlung predominant emphysematous changes. Left lower lobe subsegmental atelectasis/scarring, unchanged is noted. Thelungs are otherwise clear. No pleural effusion or pneumothorax is seen. The heart is normalin size.Surgical clips project over the right chest wall and over the mediastinum. Preliminary Report Dictated by Resident: Moo Dang MD., have reviewed this studyand agree with theabove report.XR CHEST 1 VW HISTORY: dyspnea COMPARISON: X-ray dated 01/29/2020 Technique: AP view of the chest. [facility], Radiant Results Inft User - 03/05/2020 12:22 PM CDTXR CHEST 1 VWHISTORY: dyspnea COMPARISON: X-ray dated 01/29/2020Technique: AP view of the chest.IMPRESSIONFINDINGS/IMPRESSION:Hyperinflated lungs with flattening of bilateral hemidiaphragms and upperlung predominant emphysematous changes.Left lower lobe subsegmental atelectasis/scarring, unchanged is noted. Thelungs are otherwise clear. No pleural effusion or pneumothorax is seen. The heart is normal in size.Surgical clips project over the right chest wall and over the mediastinum.Preliminary Report Dictated byResident: Mary Tello, Moo Stewart MD., have reviewed this study and agree with theabove report. [facility] [id number] 16:48:00* Test Item Value Reference Range Interpretation Comme nts FREE T3 (test code = 8808541167) 3.87 pg/mL 2.77-5.27 Lab Interpretation (test cod e = 40932-6) Normal [facility] [id number] 14:18:00* Test Item Value Reference Range Interpretation Comme nts FREE T4 (test code = 4670324632) See_Comment [Automated messa ge] The system which generated this result transmitted reference range: 0.78 - 2.20 ng/dL:. The reference range was not used to interpret this result as normal/abnormal. Lab Interpretation (test code = 95620-2) Normal [facility] Arterial Blood Gas.2020-03-05 13:53:00* Test Item Value Reference Range Interpretation Comme nts PH (test code = 2) 7.35-7.45 PCO2 (test code = 7367496590) See_Comment H [Automated messa ge] The system which generated this result transmitted reference range: 35 - 45 mmHg. The reference range was not used to interpret this result as normal/abnormal. PO2 (test code = 1066315607) See_Comment L [Automated messa ge] The system which generated this result transmitted reference range: 80 - 100 mmHg. The reference range was not used to interpret this result as normal/abnormal. HCO3 (test code = 1137242354) See_Comment H [Automated messa ge] The system which generated this result transmitted reference range: 22 - 26 mEq/L. The reference range was not used to interpret this result as normal/abnormal. BE (test code = 7808047320) See_Comment H [Automated messa ge] The system which generated this result transmitted reference range: -3.0 - 3.0 mEq/L. The reference range was not used to interpret this result as normal/abnormal. Lab Interpretation (test code = 29772-2) [facility] [id number] 11:44:00* Test Item Value Reference Range Interpretation Comme nts TROPONIN I (test code = 9560445793) <0.012 See_Comment [Automated message] The system which generated this result transmitted reference range: <=0.034 ng/mL. The reference range was not used to interpret this result as normal/abnormal. DAO (test code = DAO) Equal or Less than 0.034 ng/ml---Normal ?Note: Cardiac troponin begins to rise 3-4 hours after the onset of ischemia. Repeat in 4-6 hours if the sample was drawn within 3-4 hours of the onset of the symptom and found normal. Between 0.035 and 0.120 ng/mL--- Borderline. Questionable myocardial injury or necrosis ? ?Note: Serial measurement may be necessary to confirm or exclude the diagnosis of myocardial injury or necrosis; Clinical correlation (symptoms, EKGs, imaging studies, and others) required; Repeat in 4-6 hours if clinically indicated. ? Equal or Higher than 0.121 ng/mL---Abnormal. Myocardial Injury or Necrosis Likely ? Biotin has been reported to cause a negative bias, interpret results relative to patient's use of biotin. ? Lab Interpretation (test code = 52047-1) [facility] 10:17:00* Test Item Value Reference Range Interpretation Comme nts Procalcitonin (test code = 4157179671) 0.02 ng/mL <0.07 DAO (test code = DAO) INTERPRETATION OF PROCALCITONIN RESULTS IN ADULTS >= 18 YEARS OF AGE Initiation and discontinuation of antibiotics on patients with suspected or confirmed Lower Respiratory Tract Infection in Adults >= 18 years of age. + +-------- --------+ + -----+|Procalcitonin |Interpretation ?|Antibiotic ? ? |Considerations ? |ng/mL ? | ?|recommendation | ? + +-------- --------+ + -----+| <0.1 ? | Bacterial ? ? ?| Strongly ? ? ?| ? | ?| infection very | discouraged ? | Overruling: ? | ?| unlikely ? ? ? | ? | ? Clinically unstable ? ? ? + +-------- --------+ + ? High risk for adverse ? ? | <0.25 ?| Bacterial ? ? ?| Discouraged ? | ? outcome ? | ?| infection ? ? ?| ? | ? SEE IMPORTANT NOTE ?| ?| unlikely ? ? ? | ? | ? + +-------- --------+ + -----+| >=0.25 ? ? ? | Bacterial ? ? ?| Encouraged ? ?| ? | ?| infection ? ? ?| ? | ? | ?| likely ? | ? | Consider treatment failure ?+ +------- ---------+ -+ if levels does not decrease | >0.5 ? | Bacterial ? ? ?| Strongly ? ? ?| appropriately ? | ?| infection very | encouraged ? ?| ? | ?| likely ? | ? | ? + +-------- --------+ + -----+ Discontinuation of antibiotics in high-acuity patients with suspected or confirmed sepsis in Adults >= 18 years of age. + +-------- --------+ + -----+|Procalcitonin |Interpretation ?|Antibiotic ? ? |Considerations ? |ng/mL ? | ?|recommendation | ? + +-------- --------+ + -----+| <0.25 ?| Bacterial ? ? ?| Strongly ? ? ?| ? | ?| infection very | discouraged ? | Overruling: ? | ?| unlikely ? ? ? | ? | ? Clinically unstable ? ? ? + +-------- --------+ + ? High risk for adverse ? ? | <0.5 or drop | Bacterial ? ? ?| Discouraged ? | ? outcome ? | >80% from ? ?| infection ? ? ?| ? | ? SEE IMPORTANT NOTE ?| highest PCT ?| unlikely ? ? ? | ? | ? | level ?| ?| ? | ? + +-------- --------+ + -----+| >=0.5 ?| Bacterial ? ? ?| Encouraged ? ?| ? | ?| infection ? ? ?| ? | ? | ?| likely ? | ? | Consider treatment failure ?+ +------- ---------+ -+ if levels does not decrease | >1.0 ? | Bacterial ? ? ?| Strongly ? ? ?| appropriately ? | ?| infection very | encouraged ? ?| ? | ?| likely ? | ? | ? + +-------- --------+ + -----+ Percentage of drop of Procalcitonin calculation for Discontinuation of antibiotics in high-acuity patients with suspected or confirmed sepsis in Adults >= 18 years of age. ? Procalcitonin highest{}-Procalcitonin current{}Delta Procalcitonin = x100% ? Procalcitonin current {} IMPORTANT NOTE: Procalcitonin may be elevated without bacterial infection by physiologic stress related to trauma, ortiz, chronic dialysis, metastatic cancer, surgery in the past seven days, malaria, some fungal infections, and some forms of vasculitis. The interpretation algorithm may not apply to patients with immunosuppression (equivalent of >10 mg of prednisone daily), HIV with CD4 cell count < 350 cells/mm3, active malignancy on systemic chemotherapy, solid organ transplant or hematopoietic stem cell transplantation, or hospital acquired pneumonia. Additionally, some clinical trials of procalcitonin have excluded patients with shock requiring vasopressor use, acute respiratory failure requiring mechanical ventilation, or those with known lung abscess/empyema. For further information please refer to:[email or web address] Lab Interpretation (test code = 15159-5) Normal [facility] Arterial Blood Gas.2020-03-05 07:40:00* Test Item Value Reference Range Interpretation Comme nts PH (test code = 2) 7.35-7.45 L PCO2 (test code = 8507878401) See_Comment H [Automated messa ge] The system which generated this result transmitted reference range: 35 - 45 mmHg. The reference range was not used to interpret this result as normal/abnormal. PO2 (test code = 4427770621) See_Comment L [Automated messa ge] The system which generated this result transmitted reference range: 80 - 100 mmHg. The reference range was not used to interpret this result as normal/abnormal. HCO3 (test code = 8527767150) See_Comment H [Automated messa ge] The system which generated this result transmitted reference range: 22 - 26 mEq/L. The reference range was not used to interpret this result as normal/abnormal. BE (test code = 8938599945) See_Comment H [Automated messa ge] The system which generated this result transmitted reference range: -3.0 - 3.0 mEq/L. The reference range was not used to interpret this result as normal/abnormal. Lab Interpretation (test code = 54268-4) [facility]normal [facility] [id number] 07:34:00 * Test Item Value Reference Range Interpretation Comme nts TSH (test code = 7851981332) See_Comment L [Automated messa ge] The system which generated this result transmitted reference range: 0.45 - 4.70 mIU/L. The reference range was not used to interpret this result as normal/abnormal. Lab Interpretation (test code = 72306-6) [facility]normal [facility]roponin [id number] 07:15:00* Test Item Value Reference Range Interpretation Comme nts TROPONIN I (test code = 0025463398) <0.012 See_Comment [Automated message] The system which generated this result transmitted reference range: <=0.034 ng/mL. The reference range was not used to interpret this result as normal/abnormal. DAO (test code = DAO) Equal or Less than 0.034 ng/ml---Normal ?Note: Cardiac troponin begins to rise 3-4 hours after the onset of ischemia. Repeat in 4-6 hours if the sample was drawn within 3-4 hours of the onset of the symptom and found normal. Between 0.035 and 0.120 ng/mL--- Borderline. Questionable myocardial injury or necrosis ? ?Note: Serial measurement may be necessary to confirm or exclude the diagnosis of myocardial injury or necrosis; Clinical correlation (symptoms, EKGs, imaging studies, and others) required; Repeat in 4-6 hours if clinically indicated. ? Equal or Higher than 0.121 ng/mL---Abnormal. Myocardial Injury or Necrosis Likely ? Biotin has been reported to cause a negative bias, interpret results relative to patient's use of biotin. ? Lab Interpretation (test code = 23456-0) Normal [facility] Arterial Blood Gas.2020-03-05 01:41:00* Test Item Value Reference Range Interpretation Comme nts PH (test code = 2) 7.35-7.45 L PCO2 (test code = 8516071554) See_Comment H [Automated messa ge] The system which generated this result transmitted reference range: 35 - 45 mmHg. The reference range was not used to interpret this result as normal/abnormal. PO2 (test code = 0855031437) See_Comment L [Automated messa ge] The system which generated this result transmitted reference range: 80 - 100 mmHg. The reference range was not used to interpret this result as normal/abnormal. HCO3 (test code = 8138524065) See_Comment H [Automated messa ge] The system which generated this result transmitted reference range: 22 - 26 mEq/L. The reference range was not used to interpret this result as normal/abnormal. BE (test code = 7680939295) See_Comment H [Automated messa ge] The system which generated this result transmitted reference range: -3.0 - 3.0 mEq/L. The reference range was not used to interpret this result as normal/abnormal. Lab Interpretation (test code = 00923-3) [facility] - DRUG SCREEN [id number] 23:43:00* Test Item Value Reference Range Interpretation Comme nts BENZO U (test code = 0370503490) Presumptive Positive Negative A FLORINA U (test code = 5961035043) Negative Negative AMPHET (test code = 0831790991) Negative Negative THC (test code = 6157138714) Negative Negative METHADONE (test code = 5992626090) Negative Negative Meth U (test code = 9711939351) Negative Negative OPIATES (test code = 1327955486) Negative Negative Cocaine Metabolite (test code = 7321517765) Negative Negative PROPOXY (test code = 1938262247) Negative Negative Tric U (test code = 5204027498) Negative Negative PCP (test code = 3771461943) Negative Negative OXYCOD (test code = 8666031437) Negative Negative DAO (test code = DAO) Urine Drug Cutoff Ranges Benzodiazepines: ? ? 150 ng/mLBarbiturates: ?200 ng/mLAmphetamine: ? 500 ng/mLCannabinoids: ?50 ?ng/mLMethadone: ? 200 ng/mLMethamphetamine: ? ? 500 ng/mL Opiates: ? 100 ng/mL or 2000 ng/mLCocaine: ? 150 ng/mLPropoxyphene: ?300 ng/mLTricyclics: ?300 ng/mLOxycodone: ? 100 ng/mLPCP: ? 25 ?ng/mL The results are to be used only for medical (i.e., treatment) purposes. Unconfirmed screening results must not be used for non-medical purposes (e.g., employment testing, legal testing). Lab Interpretation (test code = 91234-4) [facility]normal [facility]2020-03-04 23:21:00* Test Item Value Reference Range Interpretation Comme nts POCT GLU (test code = 7404440578) 124 mg/dL 70-110 H Lab Interpretation (test cod e = 80735-2) Abnormal [facility] HospitalCritical [id number] 23:14:49Bianka Hernandez MD ? ? 03/04/2020 ?6:14 PMCritical CarePerformed by: Bianka Hernandez MDAuthorized by: Bianka Hernandez MD Critical care provider statement: ?Critical care time (minutes): ?45 ?Critical care was necessary to treat or prevent imminent or life-threatening deterioration of the following conditions: ?Respiratory failure ?Critical care was time spent personally by me on the following activities: ?Ordering and performing treatments and interventions, ordering and review of laboratory studies, ordering and review of radiographic studies, pulse oximetry, re-evaluation of patient's condition, blood draw for specimens, development of treatment plan with patient or surrogate, discussions with consultants, discussions with primary provider and examination of patient [facility] PAN[facility] + LACTIC [id number] 23:09:00* Test Item Value Reference Range Interpretation Comme nts PH (test code = 2) 7.35-7.45 L PCO2 (test code = 3376441170) See_Comment H [Automated messa ge] The system which generated this result transmitted reference range: 35 - 45 mmHg. The reference range was not used to interpret this result as normal/abnormal. PO2 (test code = 0583270990) See_Comment L [Automated messa ge] The system which generated this result transmitted reference range: 80 - 100 mmHg. The reference range was not used to interpret this result as normal/abnormal. HCO3 (test code = 8991380767) See_Comment H [Automated messa ge] The system which generated this result transmitted reference range: 22 - 26 mEq/L. The reference range was not used to interpret this result as normal/abnormal. BE (test code = 7174254065) See_Comment H [Automated messa ge] The system which generated this result transmitted reference range: -3.0 - 3.0 mEq/L. The reference range was not used to interpret this result as normal/abnormal. THB (test code = 1029135210) 15.1 g/dL 12-16 %O2HB (test code = 9427631643) 85.0 % 94-99 L %COHB ART (test code = 3965652617) 8.9 % 0-1.5 H %METHB ART (test code = 5323747492) 0.0 % 0.4-1.5 L VOL%O2 ART (test code = 3456020536) 18.1 % 15-23 NA (test code = 8071815627) 131 mmol/L 135-145 L K+ (test code = 1610671027) 4.7 mmol/L 3.5-5 AC CA IONZ (test code = 8490925476) 4.70 mg/dL 4.5-5.3 GLUCOSE (test code = 0482276818) 130 mg/dL 70-110 H LACTIC ACID (test code = 0860428854) 1.05 mmol/L 0.5-2.2 Lab Interpretation (test code = 18513-8) Abnormal [facility]Troponin [id number] 22:11:00* Test Item Value Reference Range Interpretation Comme nts TROPONIN I (test code = 7668333549) <0.012 See_Comment [Automated message] The system which generated this result transmitted reference range: <=0.034 ng/mL. The reference range was not used to interpret this result as normal/abnormal. DAO (test code = DAO) Equal or Less than 0.034 ng/ml---Normal ?Note: Cardiac troponin begins to rise 3-4 hours after the onset of ischemia. Repeat in 4-6 hours if the sample was drawn within 3-4 hours of the onset of the symptom and found normal. Between 0.035 and 0.120 ng/mL--- Borderline. Questionable myocardial injury or necrosis ? ?Note: Serial measurement may be necessary to confirm or exclude the diagnosis of myocardial injury or necrosis; Clinical correlation (symptoms, EKGs, imaging studies, and others) required; Repeat in 4-6 hours if clinically indicated. ? Equal or Higher than 0.121 ng/mL---Abnormal. Myocardial Injury or Necrosis Likely ? Biotin has been reported to cause a negative bias, interpret results relative to patient's use of biotin. ? Lab Interpretation (test code = 86680-1) Normal [facility]-TERMINAL [id number] 22:07:00* Test Item Value Reference Range Interpretation Comme [facility] NT-proBNP (test code = 3143620089) 316 pg/mL See_Comment H [Automated message] The system which generated this result transmitted reference range: <=125. The reference range was not used to interpret this result as normal/abnormal. DAO (test code = DAO) Biotin has been reported to cause a negative bias, interpret results relative to patient's use of biotin. Lab Interpretation (test code = 03305-7) Abnormal [facility] Metabolic Panel (NA, K, CL, CO2, GLUCOSE, BUN, CREATININE, CA)2020-03-04 22:05:00* Test Item Value Reference Range Interpretation Comme nts NA (test code = 5963072137) 127 mmol/L 135-145 L K (test code = 5196201548) 4.9 mmol/L 3.5-5 CL (test code = 1339707591) 82 mmol/L 98-108 L CO2 TOTAL (test code = 8380139162) 40 mmol/L 23-31 H AGAP (test code = 7637077696) 2-16 BUN (test code = 8357003415) 14 mg/dL 7-23 GLUCOSE (test code = 2272050630) 98 mg/dL 70-110 CREATININE (test code = 5775602526) 0.37 mg/dL 0.5-1.04 L CALCIUM (test code = 1302081501) 8.8 mg/dL 8.6-10.6 eGFR Calculation (Non-) (test code = 6284573293) mL/min/1.73m2 eGFR Calculation () (test code = 9823114866) mL/min/1.73m2 DAO (test code = DAO) Association of Glomerular Filtration Rate (GFR) and Staging of Kidney Disease* + --+ --+ ------+| GFR (mL/min/1.73 m2) ?| With Kidney Damage ?| ?Without Kidney Damage+ --------+ --------+ +| ?>90 ?| ?Stage one ?| ? Normal ?+ ---+ ---+ -------+| ?60-89 ?| ?Stage two ?| ? Decreased GFR ? + --+ --+ ------+| ?30-59 ?| ?Stage three ?| ? Stage three ? + --+ --+ ------+| ?15-29 ?| ?Stage four ? | ? Stage four ?+ ---+ ---+ -------+| ?<15 (or dialysis) ? ?| ?Stage five ? | ? Stage five ?+ ---+ ---+ -------+ *Each stage assumes the associated GFR level has been in effect for at least three months. ?Stages 1 to 5, with or without kidney disease, indicate chronic kidney disease. Notes: Determination of stages one and two (with eGFR >59mL/min/1.73 m2) requires estimation of kidney damage for at least three months as defined by structural or functional abnormalities of the kidney, manifested by either:Pathological abnormalities or Markers of kidney damage (including abnormalities in the composition of the blood or urine or abnormalities in imaging tests). Lab Interpretation (test code = 77109-0) Abnormal [facility] (ALB, T.PRO, BILI T, BU/BC, ALT, AST, ALK PHOS)2020-03-04 22:05:00* Test Item Value Reference Range Interpretation Comme nts TOTAL BILI (test code = 2104718890) 0.7 mg/dL 0.1-1.1 BILI UNCON (test code = 6860929129) 0.8 mg/dL 0.1-1.1 BILI CONJ (test code = 5044599726) 0.0 mg/dL 0-0.3 T PROTEIN (test code = 4926021843) 7.2 g/dL 6.3-8.2 ALBUMIN (test code = 6939940412) 4.2 g/dL 3.5-5 ALK PHOS (test code = 0473384277) 50 U/L 34-122 ALTv (test code = 1742-6) 39 U/L 5-35 H AST(SGOT) (test code = 8078264236) 30 U/L 13-40 Lab Interpretation (test cod e = 55216-7) Abnormal [facility] HospitalaPTT2020-06-12 21:56:00* Test Item Value Reference Range Interpretation Comme nts APTT Patient (test code = 3173-2) See_Comment [Automated message] The system which generated this result transmitted reference range: 23 - 38 Seconds. The reference range was not used to interpret this result as normal/abnormal. DAO (test code = DAO) The [facility] patient population mean normal value for aPTT is 30 seconds. Lab Interpretation (test code = 77155-5) Normal [facility]COVID[facility] (ID NOW RAPID TESTING)2020-03-04 21:55:00* Test Item Value Reference Range Interpretation Comme nts SARS-CoV-2 Rapid ID NOW (test code = 13880-8) Not Detected Not Detected DAO (test code = DAO) ID NOW COVID-19 As say is an isothermal nucleic acid amplification test intended for the qualitative detection of nucleic acid from SARS-CoV-2 viral RNA in nasopharyngeal (DISTRICT COURT REPORTER) specimens. It is used under Emergency Use Authorization (EUA) by FDA. The limit of detection (LOD) of the assay is 125 Genome Equivalents/mL. A positive result is indicative of the presence of SARS-CoV-2 RNA. ?Clinical correlation with patient history and other diagnostic [...] for repeat patient testing if clinically indicated. Lab Interpretation (test code = 29120-8) Normal [facility] HospitalProthrombin Time (PT) / [id number] 21:54:00 * Test Item Value Reference Range Interpretation Comme [facility] PROTIME PATIENT (test code = 5964-2) See_Comment L [Automated [employer] [facility]] The system which generated this result transmitted reference range: 12.0 - 14.7 Seconds. The reference range was not used to interpret this result as normal/abnormal. INR (test code = 6301-6) Normal INR <1.1; Warfarin Therapeutic range 2.0 to 3.0 or 2.5 to 3.5, depending upon the indications. Lab Interpretation (test code = 44776-7) Abnormal [facility] HospitalCBC WITH [id number] 21:36:00* Test Item Value Reference Range Interpretation Comme [facility] WBC (test code = 6690-2) See_Comment [Automated messa ge] The system which generated this result transmitted reference range: 4.30 - 11.10 10*3/?L. The reference range was not used to interpret this result as normal/abnormal. RBC (test code = 789-8) See_Comment [Automated messa ge] The system which generated this result transmitted reference range: 3.93 - 5.25 10*6/?L. The reference range was not used to interpret this result as normal/abnormal. HGB (test code = 718-7) 14.4 g/dL 11.6-15 HCT (test code = 4544-3) 43.6 % 35.7-45.2 MCV (test code = 787-2) 98.0 fL 80.6-95.5 H MCH (test code = 785-6) 32.4 pg 25.9-32.8 MCHC (test code = 786-4) 33.0 g/dL 31.6-35.1 RDW-SD (test code = 90255-2) 49.1 fL 39-49.9 RDW-CV (test code = 788-0) 13.6 % 12-15.5 PLT (test code = 777-3) See_Comment [Automated messa ge] The system which generated this result transmitted reference range: 166 - 358 10*3/?L. The reference range was not used to interpret this result as normal/abnormal. MPV (test code = 56004-1) 9.5 fL 9.5-12.9 NRBC/100 WBC (test code = 7547837084) See_Comment [Automated [email or web address] ssage] The system which generated this result transmitted reference range: 0.0 - 10.0 /100 WBCs. The reference range was not used to interpret this result as normal/abnormal. NRBC x10^3 (test code = 8730181190) <0.01 See_Comment [Automated messa ge] The system which generated this result transmitted reference range: 10*3/?L. The reference range was not used to interpret this result as normal/abnormal. GRAN MAT (NEUT) % (test code = 770-8) 62.3 % IMM GRAN % (test code = 1238147839) 0.60 % LYMPH % (test code = 736-9) 22.7 % MONO % (test code = 5905-5) 13.3 % EOS % (test code = 713-8) 0.7 % BASO % (test code = 706-2) 0.4 % GRAN MAT x10^3(ANC) (test code = 2517467877) 6.76 10*3/uL 1.88-7.09 IMM GRAN x10^3 (test code = 5192978882) 0.07 10*3/uL 0-0.06 H LYMPH x10^3 (test code = 731-0) 2.46 10*3/uL 1.32-3.29 MONO x10^3 (test code = 742-7) 1.44 10*3/uL 0.33-0.92 H EOS x10^3 (test code = 711-2) 0.08 10*3/uL 0.03-0.39 BASO x10^3 (test code = 704-7) 0.04 10*3/uL 0.01-0.07 Lab Interpretation (test code = 63953-0) [facility] (NA, K, CL, CO2, GLUCOSE, BUN, CREATININE, CA)2020-02-28 11:52:00* Test Item Value Reference Range Interpretation Comme nts NA (test code = 6539300314) 135 mmol/L 135-145 K (test code = 6278182040) 3.4 mmol/L 3.5-5 L CL (test code = 6206253299) 92 mmol/L 98-108 L CO2 TOTAL (test code = 9609918393) 43 mmol/L 23-31 H AGAP (test code = 1127751730) <1 2-16 L BUN (test code = 2194295952) 32 mg/dL 7-23 H GLUCOSE (test code = 8530465888) 86 mg/dL 70-110 CREATININE (test code = 7468300306) 0.63 mg/dL 0.5-1.04 CALCIUM (test code = 9148731008) 9.4 mg/dL 8.6-10.6 eGFR Calculation (Non-) (test code = 1957144484) mL/min/1.73m2 eGFR Calculation () (test code = 9670178916) mL/min/1.73m2 DAO (test code = DAO) Association of Glomerular Filtration Rate (GFR) and Staging of Kidney Disease* + --+ --+ ------+| GFR (mL/min/1.73 m2) ?| With Kidney Damage ?| ?Without Kidney Damage+ --------+ --------+ +| ?>90 ?| ?Stage one ?| ? Normal ?+ ---+ ---+ -------+| ?60-89 ?| ?Stage two ?| ? Decreased GFR ? + --+ --+ ------+| ?30-59 ?| ?Stage three ?| ? Stage three ? + --+ --+ ------+| ?15-29 ?| ?Stage four ? | ? Stage four ?+ ---+ ---+ -------+| ?<15 (or dialysis) ? ?| ?Stage five ? | ? Stage five ?+ ---+ ---+ -------+ *Each stage assumes the associated GFR level has been in effect for at least three months. ?Stages 1 to 5, with or without kidney disease, indicate chronic kidney disease. Notes: Determination of stages one and two (with eGFR >59mL/min/1.73 m2) requires estimation of kidney damage for at least three months as defined by structural or functional abnormalities of the kidney, manifested by either:Pathological abnormalities or Markers of kidney damage (including abnormalities in the composition of the blood or urine or abnormalities in imaging tests). Lab Interpretation (test code = 16660-7) [facility] 11:40:00* Test Item Value Reference Range Interpretation Comme nts MAGNESIUM (test code = 4061690920) 1.8 mg/dL 1.7-2.4 Lab Interpretation (test cod e = 74297-7) [facility] WITH [id number] 11:20:00* Test Item Value Reference Range Interpretation Comme nts WBC (test code = 6690-2) See_Comment H [Automated [facility]] The system which generated this result transmitted reference range: 4.30 - 11.10 10*3/?L. The reference range was not used to interpret this result as normal/abnormal. RBC (test code = 789-8) See_Comment [Automated [employer] ge] The system which generated this result transmitted reference range: 3.93 - 5.25 10*6/?L. The reference range was not used to interpret this result as normal/abnormal. HGB (test code = 718-7) 13.1 g/dL 11.6-15 HCT (test code = 4544-3) 40.0 % 35.7-45.2 MCV (test code = 787-2) 96.9 fL 80.6-95.5 H MCH (test code = 785-6) 31.7 pg 25.9-32.8 MCHC (test code = 786-4) 32.8 g/dL 31.6-35.1 RDW-SD (test code = 64501-9) 49.1 fL 39-49.9 RDW-CV (test code = 788-0) 13.9 % 12-15.5 PLT (test code = 777-3) See_Comment [Automated [facility] [facility] [facility]] The system which generated this result transmitted reference range: 166 - 358 10*3/?L. The reference range was not used to interpret this result as normal/abnormal. MPV (test code = 38760-8) 9.0 fL 9.5-12.9 L NRBC/100 WBC (test code = 0401165381) See_Comment [Automated [email or web address] ssage] The system which generated this result transmitted reference range: 0.0 - 10.0 /100 WBCs. The reference range was not used to interpret this result as normal/abnormal. NRBC x10^3 (test code = 7768321193) <0.01 See_Comment [Automated [facility] [facility] [facility]] The system which generated this result transmitted reference range: 10*3/?L. The reference range was not used to interpret this result as normal/abnormal. GRAN MAT (NEUT) % (test code = 770-8) 70.8 % IMM GRAN % (test code = 6191542130) 0.60 % LYMPH % (test code = 736-9) 19.4 % MONO % (test code = 5905-5) 8.7 % EOS % (test code = 713-8) 0.4 % BASO % (test code = 706-2) 0.1 % GRAN MAT x10^3(ANC) (test code = 8967411420) 7.94 10*3/uL 1.88-7.09 H IMM GRAN x10^3 (test code = 9584779691) 0.07 10*3/uL 0-0.06 H LYMPH x10^3 (test code = 731-0) 2.17 10*3/uL 1.32-3.29 MONO x10^3 (test code = 742-7) 0.97 10*3/uL 0.33-0.92 H EOS x10^3 (test code = 711-2) 0.04 10*3/uL 0.03-0.39 BASO x10^3 (test code = 704-7) <0.03 0.01-0.07 Lab Interpretation (test code = 19312-6) [facility] [id number] 02:42:00* Test Item Value Reference Range Interpretation Comme nts Adenovirus (test code = 53949-8) Negative Negative Coronavirus HKU1 (test code = 84565-9) Negative Negative Coronavirus NL63 (test code = 02337-4) Negative Negative Coronavirus 229E (test code = 86891-9) Negative Negative Coronavirus OC43 (test code = 42365-6) Negative Negative Human Metapneumovirus (test code = 19128-7) Negative Negative Human Rhinovirus/Enterovirus (test code = 98100-4) Negative Negative Influenza A (test code = 02483-3) Negative Negative Influenza B (test code = 79498-5) Negative Negative Parainfluenza Virus 1 (test code = 91432-4) Negative Negative Parainfluenza Virus 2 (test code = 84218-0) Negative Negative Parainfluenza Virus 3 (test code = 21227-7) Negative Negative Parainfluenza Virus 4 (test code = 39003-0) Negative Negative Respiratory Syncytial Virus (test code = 41029-1) Negative Negative Bordetella parapertussis (test code = 19675-6) Negative Negative Bordetella pertussis (test code = 05831-0) Negative Negative Chlamydia pneumoniae (test code = 13026-2) Negative Negative Mycoplasma pneumoniae (test code = 87607-4) Negative Negative DAO (test code = DAO) Negative:A negativ e result does not rule-out infection. ?This assay does not test for all potential infectious agents. ? Positive:A positive test result does not necessarily indicate the presence of viable organism. ? Lab Interpretation (test code = 62513-4) Normal [facility] WITH [id number] 10:25:00* Test Item Value Reference Range Interpretation Comme nts WBC (test code = 6690-2) See_Comment H [Automated message] The system which generated this result transmitted reference range: 4.30 - 11.10 10*3/?L. The reference range was not used to interpret this result as normal/abnormal. RBC (test code = 789-8) See_Comment L [Automated message] The system which generated this result transmitted reference range: 3.93 - 5.25 10*6/?L. The reference range was not used to interpret this result as normal/abnormal. HGB (test code = 718-7) 12.4 g/dL 11.6-15 HCT (test code = 4544-3) 38.1 % 35.7-45.2 MCV (test code = 787-2) 97.7 fL 80.6-95.5 H MCH (test code = 785-6) 31.8 pg 25.9-32.8 MCHC (test code = 786-4) 32.5 g/dL 31.6-35.1 RDW-SD (test code = 51914-0) 48.5 fL 39-49.9 RDW-CV (test code = 788-0) 13.5 % 12-15.5 PLT (test code = 777-3) See_Comment [Automated message] The system which generated this result transmitted reference range: 166 - 358 10*3/?L. The reference range was not used to interpret this result as normal/abnormal. MPV (test code = 48446-8) 9.3 fL 9.5-12.9 L NRBC/100 WBC (test code = 0289974581) See_Comment [Automated message] The system which generated this result transmitted reference range: 0.0 - 10.0 /100 WBCs. The reference range was not used to interpret this result as normal/abnormal. NRBC x10^3 (test code = 1216686612) <0.01 See_Comment [Automated message] The system which generated this result transmitted reference range: 10*3/?L. The reference range was not used to interpret this result as normal/abnormal. GRAN MAT (NEUT) % (test code = 770-8) 93.1 % IMM GRAN % (test code = 6077178715) 0.90 % LYMPH % (test code = 736-9) 2.8 % MONO % (test code = 5905-5) 3.1 % EOS % (test code = 713-8) 0.0 % BASO % (test code = 706-2) 0.1 % GRAN MAT x10^3(ANC) (test code = 3693530031) 15.86 10*3/uL 1.88-7.09 H IMM GRAN x10^3 (test code = 7798209092) 0.16 10*3/uL 0-0.06 H LYMPH x10^3 (test code = 731-0) 0.47 10*3/uL 1.32-3.29 L MONO x10^3 (test code = 742-7) 0.53 10*3/uL 0.33-0.92 EOS x10^3 (test code = 711-2) <0.03 0.03-0.39 L BASO x10^3 (test code = 704-7) <0.03 0.01-0.07 Lab Interpretation (test code = 70554-7) Abnormal [facility] METABOLIC PANEL ([id number])2020-02-26 10:00:00* Test Item Value Reference Range Interpretation Comme nts NA (test code = 6247058821) 134 mmol/L 135-145 L K (test code = 9193820629) 3.9 mmol/L 3.5-5 CL (test code = 2836989251) 89 mmol/L 98-108 L CO2 TOTAL (test code = 6755391676) 45 mmol/L 23-31 H AGAP (test code = 3567309422) <1 2-16 L BUN (test code = 3685602208) 25 mg/dL 7-23 H GLUCOSE (test code = 7373578595) 172 mg/dL 70-110 H CREATININE (test code = 3373621938) 0.59 mg/dL 0.5-1.04 TOTAL BILI (test code = 6456363360) 0.2 mg/dL 0.1-1.1 CALCIUM (test code = 8871514146) 8.7 mg/dL 8.6-10.6 T PROTEIN (test code = 8620450214) 6.0 g/dL 6.3-8.2 L ALBUMIN (test code = 9277905298) 3.5 g/dL 3.5-5 ALK PHOS (test code = 2520872972) 48 U/L 34-122 ALTv (test code = 1742-6) 21 U/L 5-35 AST(SGOT) (test code = 7947966495) 31 U/L 13-40 eGFR Calculation (Non-) (test code = 9212546691) mL/min/1.73m2 eGFR Calculation () (test code = 7694589240) mL/min/1.73m2 DAO (test code = DAO) Association of Glomerular Filtration Rate (GFR) and Staging of Kidney Disease* + --+ --+ ------+| GFR (mL/min/1.73 m2) ?| With Kidney Damage ?| ?Without Kidney Damage+ --------+ --------+ +| ?>90 ?| ?Stage one ?| ? Normal ?+ ---+ ---+ -------+| ?60-89 ?| ?Stage two ?| ? Decreased GFR ? + --+ --+ ------+| ?30-59 ?| ?Stage three ?| ? Stage three ? + --+ --+ ------+| ?15-29 ?| ?Stage four ? | ? Stage four ?+ ---+ ---+ -------+| ?<15 (or dialysis) ? ?| ?Stage five ? | ? Stage five ?+ ---+ ---+ -------+ *Each stage assumes the associated GFR level has been in effect for at least three months. ?Stages 1 to 5, with or without kidney disease, indicate chronic kidney disease. Notes: Determination of stages one and two (with eGFR >59mL/min/1.73 m2) requires estimation of kidney damage for at least three months as defined by structural or functional abnormalities of the kidney, manifested by either:Pathological abnormalities or Markers of kidney damage (including abnormalities in the composition of the blood or urine or abnormalities in imaging tests). Lab Interpretation (test code = 10891-8) [facility]normal [facility] [id number] 09:33:00* Test Item Value Reference Range Interpretation Comme nts NT-proBNP (test code = 8720283311) 335 pg/mL See_Comment H [Automated message] The system which generated this result transmitted reference range: <=125. The reference range was not used to interpret this result as normal/abnormal. DAO (test code = DAO) Biotin has been reported to cause a negative bias, interpret results relative to patient's use of biotin. Lab Interpretation (test code = 06313-9) [facility]normal [facility] [id number] 08:15:00 * Test Item Value Reference Range Interpretation Comme nts PH (test code = 6360310558) 7.32-7.42 PCO2 QUINCY (test code = 3368846890) See_Comment [Automated messa ge] The system which generated this result transmitted reference range: 41 - 51 mmHg. The reference range was not used to interpret this result as normal/abnormal. PO2 QUINCY (test code = 6999929388) See_Comment HH [Automated messa ge] The system which generated this result transmitted reference range: 25 - 40 mmHg. The reference range was not used to interpret this result as normal/abnormal. HCO3 QUINCY (test code = 5796957105) See_Comment H [Automated messa ge] The system which generated this result transmitted reference range: 24 - 28 mEq/L. The reference range was not used to interpret this result as normal/abnormal. AC VBE(BEAKER) (test code = 8878116203) mEq/L Lab Interpretation (test code = 26739-6) [facility]normal [facility] COVID-19 [id number] 04:39:00* Test Item Value Reference Range Interpretation Comme nts SARS-CoV-2 PCR (test code = 73613-9) Not Detected Not Detected DAO (test code = DAO) [employer] Aptima SARS-CoV-2 Assay is a nucleic acid amplification test intended for the qualitative detection of RNA from SARS-CoV-2 from nasopharyngeal ([address] [employer] REPORTER) specimens. ?It is used under Emergency Use Authorization (EUA) by FDA. A positive result is indicative of the presence of SARS-CoV-2 RNA. ?Clinical correlation with patient history and other diagnostic information is necessary to determine patient infection status. A negative (Not Detected) result does not preclude SARS-CoV-2 infection. ?Clinical correlation with patient history and other diagnostic information should be used in patient management decisions. Invalid: Unable to generate a valid test result on this specimen. ?Please submit a new specimen for repeat testing if clinically indicated. Lab Interpretation (test code = 00761-9) Normal [facility].2020-02-25 18:45:00* Test Item Value Reference Range Interpretation Comme nts PH (test code = 2) 7.35-7.45 PCO2 (test code = 8055896535) See_Comment H [Automated messa ge] The system which generated this result transmitted reference range: 35 - 45 mmHg. The reference range was not used to interpret this result as normal/abnormal. PO2 (test code = 2141092062) See_Comment L [Automated messa ge] The system which generated this result transmitted reference range: 80 - 100 mmHg. The reference range was not used to interpret this result as normal/abnormal. HCO3 (test code = 6133994934) See_Comment H [Automated messa ge] The system which generated this result transmitted reference range: 22 - 26 mEq/L. The reference range was not used to interpret this result as normal/abnormal. BE (test code = 3130061744) See_Comment H [Automated messa ge] The system which generated this result transmitted reference range: -3.0 - 3.0 mEq/L. The reference range was not used to interpret this result as normal/abnormal. Lab Interpretation (test code = 20021-8) [facility]normal [facility]2020-06-04 14:43:00* Test Item Value Reference Range Interpretation Comme nts Procalcitonin (test code = 0849406882) 0.03 ng/mL <0.07 DAO (test code = DAO) INTERPRETATION OF PROCALCITONIN RESULTS IN ADULTS >= 18 YEARS OF AGE Initiation and discontinuation of antibiotics on patients with suspected or confirmed Lower Respiratory Tract Infection in Adults >= 18 years of age. + +-------- --------+ + -----+|Procalcitonin |Interpretation ?|Antibiotic ? ? |Considerations ? |ng/mL ? | ?|recommendation | ? + +-------- --------+ + -----+| <0.1 ? | Bacterial ? ? ?| Strongly ? ? ?| ? | ?| infection very | discouraged ? | Overruling: ? | ?| unlikely ? ? ? | ? | ? Clinically unstable ? ? ? + +-------- --------+ + ? High risk for adverse ? ? | <0.25 ?| Bacterial ? ? ?| Discouraged ? | ? outcome ? | ?| infection ? ? ?| ? | ? SEE IMPORTANT NOTE ?| ?| unlikely ? ? ? | ? | ? + +-------- --------+ + -----+| >=0.25 ? ? ? | Bacterial ? ? ?| Encouraged ? ?| ? | ?| infection ? ? ?| ? | ? | ?| likely ? | ? | Consider treatment failure ?+ +------- ---------+ -+ if levels does not decrease | >0.5 ? | Bacterial ? ? ?| Strongly ? ? ?| appropriately ? | ?| infection very | encouraged ? ?| ? | ?| likely ? | ? | ? + +-------- --------+ + -----+ Discontinuation of antibiotics in high-acuity patients with suspected or confirmed sepsis in Adults >= 18 years of age. + +-------- --------+ + -----+|Procalcitonin |Interpretation ?|Antibiotic ? ? |Considerations ? |ng/mL ? | ?|recommendation | ? + +-------- --------+ + -----+| <0.25 ?| Bacterial ? ? ?| Strongly ? ? ?| ? | ?| infection very | discouraged ? | Overruling: ? | ?| unlikely ? ? ? | ? | ? Clinically unstable ? ? ? + +-------- --------+ + ? High risk for adverse ? ? | <0.5 or drop | Bacterial ? ? ?| Discouraged ? | ? outcome ? | >80% from ? ?| infection ? ? ?| ? | ? SEE IMPORTANT NOTE ?| highest PCT ?| unlikely ? ? ? | ? | ? | level ?| ?| ? | ? + +-------- --------+ + -----+| >=0.5 ?| Bacterial ? ? ?| Encouraged ? ?| ? | ?| infection ? ? ?| ? | ? | ?| likely ? | ? | Consider treatment failure ?+ +------- ---------+ -+ if levels does not decrease | >1.0 ? | Bacterial ? ? ?| Strongly ? ? ?| appropriately ? | ?| infection very | encouraged ? ?| ? | ?| likely ? | ? | ? + +-------- --------+ + -----+ Percentage of drop of Procalcitonin calculation for Discontinuation of antibiotics in high-acuity patients with suspected or confirmed sepsis in Adults >= 18 years of age. ? Procalcitonin highest{}-Procalcitonin current{}Delta Procalcitonin = x100% ? Procalcitonin current {} IMPORTANT NOTE: Procalcitonin may be elevated without bacterial infection by physiologic stress related to trauma, ortiz, chronic dialysis, metastatic cancer, surgery in the past seven days, malaria, some fungal infections, and some forms of vasculitis. The interpretation algorithm may not apply to patients with immunosuppression (equivalent of >10 mg of prednisone daily), HIV with CD4 cell count < 350 cells/mm3, active malignancy on systemic chemotherapy, solid organ transplant or hematopoietic stem cell transplantation, or hospital acquired pneumonia. Additionally, some clinical trials of procalcitonin have excluded patients with shock requiring vasopressor use, acute respiratory failure requiring mechanical ventilation, or those with known lung abscess/empyema. For further information please refer to:[email or web address] Lab Interpretation (test code = 61383-7) Normal [facility] HospitalLEGIONELLA URINARY ANTIGEN [id number] 13:45:00* Test Item Value Reference Range Interpretation Comme nts Legionella Urinary Antigen (test code = 2617441521) Negative Negative DAO (test code = DAO) Negative for L. pneumophilia serogroup I antigen in urine suggesting no recent or current infection. Infection due to Legionella cannot be ruled out since other serogroups and species may cause disease. Furthermore, antigens may not be present in urine during early stage of infection, or the level of antigen present in urine may be below the detection limit of the test. Lab Interpretation (test code = 30092-2) Normal [facility] HospitalPNEUM[facility]OCCAL [id number] 13:45:00* Test Item Value Reference Range Interpretation Comme nts S. pneumoniae antigen (test code = 3441590527) Negative Negative Lab Interpretation (test cod e = 43570-0) Normal [facility] METABOLIC PANEL (99550)2020-02-25 12:50:00* Test Item Value Reference Range Interpretation Comme nts NA (test code = 5134057412) 139 mmol/L 135-145 K (test code = 6080051915) 4.6 mmol/L 3.5-5 CL (test code = 0951013565) 92 mmol/L 98-108 L CO2 TOTAL (test code = 1433557060) 42 mmol/L 23-31 H AGAP (test code = 5752235094) 2-16 BUN (test code = 1382200975) 11 mg/dL 7-23 GLUCOSE (test code = 6333500230) 144 mg/dL 70-110 H CREATININE (test code = 0760335102) 0.44 mg/dL 0.5-1.04 L TOTAL BILI (test code = 8693903538) 0.5 mg/dL 0.1-1.1 CALCIUM (test code = 4980091857) 8.6 mg/dL 8.6-10.6 T PROTEIN (test code = 5412074588) 6.7 g/dL 6.3-8.2 ALBUMIN (test code = 7271587931) 3.9 g/dL 3.5-5 ALK PHOS (test code = 6721956441) 47 U/L 34-122 ALTv (test code = 1742-6) 29 U/L 5-35 AST(SGOT) (test code = 2169653203) 26 U/L 13-40 eGFR Calculation (Non-) (test code = 1796979248) mL/min/1.73m2 eGFR Calculation () (test code = 8018293797) mL/min/1.73m2 DAO (test code = DAO) Association of Glomerular Filtration Rate (GFR) and Staging of Kidney Disease* + --+ --+ ------+| GFR (mL/min/1.73 m2) ?| With Kidney Damage ?| ?Without Kidney Damage+ --------+ --------+ +| ?>90 ?| ?Stage one ?| ? Normal ?+ ---+ ---+ -------+| ?60-89 ?| ?Stage two ?| ? Decreased GFR ? + --+ --+ ------+| ?30-59 ?| ?Stage three ?| ? Stage three ? + --+ --+ ------+| ?15-29 ?| ?Stage four ? | ? Stage four ?+ ---+ ---+ -------+| ?<15 (or dialysis) ? ?| ?Stage five ? | ? Stage five ?+ ---+ ---+ -------+ *Each stage assumes the associated GFR level has been in effect for at least three months. ?Stages 1 to 5, with or without kidney disease, indicate chronic kidney disease. Notes: Determination of stages one and two (with eGFR >59mL/min/1.73 m2) requires estimation of kidney damage for at least three months as defined by structural or functional abnormalities of the kidney, manifested by either:Pathological abnormalities or Markers of kidney damage (including abnormalities in the composition of the blood or urine or abnormalities in imaging tests). Lab Interpretation (test code = 68213-6) Abnormal [facility] HospitalTRRUTH [id number] 12:19:00* Test Item Value Reference Range Interpretation Comme nts TROPONIN I (test code = 9183704165) 0.023 ng/mL See_Comment [Automated message] The system which generated this result transmitted reference range: <=0.034. The reference range was not used to interpret this result as normal/abnormal. DAO (test code = DAO) Equal or Less than 0.034 ng/ml---Normal ?Note: Cardiac troponin begins to rise 3-4 hours after the onset of ischemia. Repeat in 4-6 hours if the sample was drawn within 3-4 hours of the onset of the symptom and found normal. Between 0.035 and 0.120 ng/mL--- Borderline. Questionable myocardial injury or necrosis ? ?Note: Serial measurement may be necessary to confirm or exclude the diagnosis of myocardial injury or necrosis; Clinical correlation (symptoms, EKGs, imaging studies, and others) required; Repeat in 4-6 hours if clinically indicated. ? Equal or Higher than 0.121 ng/mL---Abnormal. Myocardial Injury or Necrosis Likely ? Biotin has been reported to cause a negative bias, interpret results relative to patient's use of biotin. ? Lab Interpretation (test code = 94054-8) Normal [facility] [id number] 12:16:00* Test Item Value Reference Range Interpretation Comme nts NT-proBNP (test code = 3360006745) 591 pg/mL See_Comment H [Automated message] The system which generated this result transmitted reference range: <=125. The reference range was not used to interpret this result as normal/abnormal. DAO (test code = DAO) Biotin has been reported to cause a negative bias, interpret results relative to patient's use of biotin. Lab Interpretation (test code = 01131-6) [facility] HospitalCBC WITH [id number] 11:50:00* Test Item Value Reference Range Interpretation Comme nts WBC (test code = 6690-2) See_Comment [Automated [employer]] The system which generated this result transmitted reference range: 4.30 - 11.10 10*3/?L. The reference range was not used to interpret this result as normal/abnormal. RBC (test code = 789-8) See_Comment [Automated [facility] [facility] [facility]] The system which generated this result transmitted reference range: 3.93 - 5.25 10*6/?L. The reference range was not used to interpret this result as normal/abnormal. HGB (test code = 718-7) 13.4 g/dL 11.6-15 HCT (test code = 4544-3) 42.1 % 35.7-45.2 MCV (test code = 787-2) 98.6 fL 80.6-95.5 H MCH (test code = 785-6) 31.4 pg 25.9-32.8 MCHC (test code = 786-4) 31.8 g/dL 31.6-35.1 RDW-SD (test code = 74211-2) 49.2 fL 39-49.9 RDW-CV (test code = 788-0) 13.5 % 12-15.5 PLT (test code = 777-3) See_Comment [Automated [employer]] The system which generated this result transmitted reference range: 166 - 358 10*3/?L. The reference range was not used to interpret this result as normal/abnormal. MPV (test code = 89002-2) 9.5 fL 9.5-12.9 NRBC/100 WBC (test code = 7586939070) See_Comment [Automated [email or web address] ssage] The system which generated this result transmitted reference range: 0.0 - 10.0 /100 WBCs. The reference range was not used to interpret this result as normal/abnormal. NRBC x10^3 (test code = 1993906772) <0.01 See_Comment [Automated [employer]] The system which generated this result transmitted reference range: 10*3/?L. The reference range was not used to interpret this result as normal/abnormal. GRAN MAT (NEUT) % (test code = 770-8) 93.7 % IMM GRAN % (test code = 1352723913) 0.70 % LYMPH % (test code = 736-9) 4.5 % MONO % (test code = 5905-5) 1.0 % EOS % (test code = 713-8) 0.0 % BASO % (test code = 706-2) 0.1 % GRAN MAT x10^3(ANC) (test code = 3166748069) 8.82 10*3/uL 1.88-7.09 H IMM GRAN x10^3 (test code = 2639455033) 0.07 10*3/uL 0-0.06 H LYMPH x10^3 (test code = 731-0) 0.42 10*3/uL 1.32-3.29 L MONO x10^3 (test code = 742-7) 0.09 10*3/uL 0.33-0.92 L EOS x10^3 (test code = 711-2) <0.03 0.03-0.39 L BASO x10^3 (test code = 704-7) <0.03 0.01-0.07 Lab Interpretation (test code = 98088-0) Abnormal [facility] VENOUS BLOOD [id number] 10:30:00 * Test Item Value Reference Range Interpretation Comme nts PH (test code = 3031537508) 7.32-7.42 PCO2 QUINCY (test code = 8421710208) See_Comment H [Automated messa ge] The system which generated this result transmitted reference range: 41 - 51 mmHg. The reference range was not used to interpret this result as normal/abnormal. PO2 QUINCY (test code = 3584434584) See_Comment HH [Automated messa ge] The system which generated this result transmitted reference range: 25 - 40 mmHg. The reference range was not used to interpret this result as normal/abnormal. HCO3 QUINCY (test code = 9818255159) See_Comment H [Automated messa ge] The system which generated this result transmitted reference range: 24 - 28 mEq/L. The reference range was not used to interpret this result as normal/abnormal. AC VBE(BEAKER) (test code = 7439342016) mEq/L Lab Interpretation (test code = 43598-9) Abnormal [facility] Arterial Blood Gas. To be drawn at [id number] 07:13:00* Test Item Value Reference Range Interpretation Comme nts PH (test code = 2) 7.35-7.45 L PCO2 (test code = 9901900396) See_Comment H [Automated messa ge] The system which generated this result transmitted reference range: 35 - 45 mmHg. The reference range was not used to interpret this result as normal/abnormal. PO2 (test code = 0410036450) See_Comment L [Automated messa ge] The system which generated this result transmitted reference range: 80 - 100 mmHg. The reference range was not used to interpret this result as normal/abnormal. HCO3 (test code = 6658619300) See_Comment H [Automated messa ge] The system which generated this result transmitted reference range: 22 - 26 mEq/L. The reference range was not used to interpret this result as normal/abnormal. BE (test code = 7522467183) See_Comment H [Automated messa ge] The system which generated this result transmitted reference range: -3.0 - 3.0 mEq/L. The reference range was not used to interpret this result as normal/abnormal. Lab Interpretation (test code = 63821-7) Abnormal [facility] Arterial Blood Gas.2020-02-25 05:09:00* Test Item Value Reference Range Interpretation Comme nts PH (test code = 2) 7.35-7.45 L PCO2 (test code = 3977928155) See_Comment H [Automated messa ge] The system which generated this result transmitted reference range: 35 - 45 mmHg. The reference range was not used to interpret this result as normal/abnormal. PO2 (test code = 3309792001) See_Comment L [Automated messa ge] The system which generated this result transmitted reference range: 80 - 100 mmHg. The reference range was not used to interpret this result as normal/abnormal. HCO3 (test code = 4214467108) See_Comment H [Automated messa ge] The system which generated this result transmitted reference range: 22 - 26 mEq/L. The reference range was not used to interpret this result as normal/abnormal. BE (test code = 4687785061) See_Comment H [Automated messa ge] The system which generated this result transmitted reference range: -3.0 - 3.0 mEq/L. The reference range was not used to interpret this result as normal/abnormal. Lab Interpretation (test code = 66214-1) [facility] [id number] 01:44:45No acute cardiopulmonary abnormality. Chronic emphysematous changes. Disclaimer: Generally, the findings on chest imaging in COVID-19 are notspecific, and overlap with other infections, including influenza, H1N1,SARS and MERS.According to the Centers for Disease Control (CDC) and recent statement ofthe [employer] [employer], viral testing remains the only specificmethod of diagnosis. Confirmation with the viral test is required, even ifradiologic findings are suggestive of COVID-[address]. Preliminary Report Dictated by Resident: Mike Bermeo MD., have reviewed this study and agree with theabove report.XR CHEST 1 VW COVID Comparison: 02/09/2020 History: dyspnea Findings: The lungs exhibit chronic emphysematous changes with prominent left apicallucency and flattening of the diaphragm. No pleural effusion, focalconsolidation, or pneumothorax is identified. The cardiomediastinal silhouette is normal in size. Surgical staplesproject over the mediastinum and right axillary soft tissues. Postsurgicalchanges of right mastectomy. No acute osseous abnormality is present. [facility], Radiant Results Inft User - 02/24/2020 8:45 PM CDTXR CHEST 1 VW COVIDComparison: 02/09/2020History: dyspnea Findings:The lungs exhibit chronic emphysematous changes with prominent left apicallucency and flattening of the diaphragm. No pleural effusion, focalconsolidation, or pneumothorax is identified. The cardiomediastinal silhouette is normal in size. Surgical staplesproject over the mediastinum and right axillary soft tissues. Postsurgicalchanges of right mastectomy.No acute osseous abnormality is present.IMPRESSIONNo acute cardiopulmonary abnormality.Chronic emphysematous changes.Disclaimer: Generally, the findings on chest imaging in COVID-19 are notspecific, and overlap with other infections, including influenza, H1N1,SARS and MERS.According to the Centers for Disease Control (CDC) and recent statement ofthe [place] [employer], viral testing remains the only specificmethod of diagnosis. Confirmation with the viral test is required, even ifradiologic findings are suggestive of COVID-[address]Preliminary Report Dictated by Resident: Mike Shipley MD., have reviewed this study and agree with theabove report. [facility] [id number] 01:06:00* Test Item Value Reference Range Interpretation Comme [facility] SARS-CoV-2 Rapid ID NOW (test code = 08369-3) Not Detected Not Detected DAO (test code = DAO) ID NOW COVID-19 As say is an isothermal nucleic acid amplification test intended for the qualitative detection of nucleic acid from SARS-CoV-2 viral RNA in nasopharyngeal (DISTRICT COURT REPORTER) specimens. It is used under Emergency Use Authorization (EUA) by FDA. The limit of detection (LOD) of the assay is 125 Genome Equivalents/mL. A positive result is indicative of the presence of SARS-CoV-2 RNA. ?Clinical correlation with patient history and other diagnostic [...] for repeat patient testing if clinically indicated. Lab Interpretation (test code = 62637-9) Normal [facility] [id number] 00:56:00* Test Item Value Reference Range Interpretation Comme [facility] TROPONIN I (test code = 5100097642) 0.028 ng/mL See_Comment [Automated message] The system which generated this result transmitted reference range: <=0.034. The reference range was not used to interpret this result as normal/abnormal. DAO (test code = DAO) Equal or Less than 0.034 ng/ml---Normal ?Note: Cardiac troponin begins to rise 3-4 hours after the onset of ischemia. Repeat in 4-6 hours if the sample was drawn within 3-4 hours of the onset of the symptom and found normal. Between 0.035 and 0.120 ng/mL--- Borderline. Questionable myocardial injury or necrosis ? ?Note: Serial measurement may be necessary to confirm or exclude the diagnosis of myocardial injury or necrosis; Clinical correlation (symptoms, EKGs, imaging studies, and others) required; Repeat in 4-6 hours if clinically indicated. ? Equal or Higher than 0.121 ng/mL---Abnormal. Myocardial Injury or Necrosis Likely ? Biotin has been reported to cause a negative bias, interpret results relative to patient's use of biotin. ? Lab Interpretation (test code = 62794-8) [facility] (NA, K, CL, CO2, GLUCOSE, BUN, CREATININE, CA)2020-02-25 00:55:00* Test Item Value Reference Range Interpretation Comme nts NA (test code = 7993726801) 133 mmol/L 135-145 L K (test code = 2486801670) 4.6 mmol/L 3.5-5 CL (test code = 5640362323) 90 mmol/L 98-108 L CO2 TOTAL (test code = 9473924882) 41 mmol/L 23-31 H AGAP (test code = 7824632695) 2-16 BUN (test code = 1299531545) 9 mg/dL 7-23 GLUCOSE (test code = 0612079418) 109 mg/dL 70-110 CREATININE (test code = 9524586071) 0.51 mg/dL 0.5-1.04 CALCIUM (test code = 0349293760) 9.0 mg/dL 8.6-10.6 eGFR Calculation (Non-) (test code = 3981886176) mL/min/1.73m2 eGFR Calculation () (test code = 4759453257) mL/min/1.73m2 DAO (test code = DAO) Association of Glomerular Filtration Rate (GFR) and Staging of Kidney Disease* + --+ --+ ------+| GFR (mL/min/1.73 m2) ?| With Kidney Damage ?| ?Without Kidney Damage+ --------+ --------+ +| ?>90 ?| ?Stage one ?| ? Normal ?+ ---+ ---+ -------+| ?60-89 ?| ?Stage two ?| ? Decreased GFR ? + --+ --+ ------+| ?30-59 ?| ?Stage three ?| ? Stage three ? + --+ --+ ------+| ?15-29 ?| ?Stage four ? | ? Stage four ?+ ---+ ---+ -------+| ?<15 (or dialysis) ? ?| ?Stage five ? | ? Stage five ?+ ---+ ---+ -------+ *Each stage assumes the associated GFR level has been in effect for at least three months. ?Stages 1 to 5, with or without kidney disease, indicate chronic kidney disease. Notes: Determination of stages one and two (with eGFR >59mL/min/1.73 m2) requires estimation of kidney damage for at least three months as defined by structural or functional abnormalities of the kidney, manifested by either:Pathological abnormalities or Markers of kidney damage (including abnormalities in the composition of the blood or urine or abnormalities in imaging tests). Lab Interpretation (test code = 07450-3) Abnormal [facility] [id number] 00:53:00* Test Item Value Reference Range Interpretation Comme nts NT-proBNP (test code = 5266276370) 231 pg/mL See_Comment H [Automated message] The system which generated this result transmitted reference range: <=125. The reference range was not used to interpret this result as normal/abnormal. DAO (test code = DAO) Biotin has been reported to cause a negative bias, interpret results relative to patient's use of biotin. Lab Interpretation (test code = 67767-2) [facility]normal [facility] (ALB, T.PRO, BILI T, BU/BC, ALT, AST, ALK PHOS)2020-02-25 00:44:00* Test Item Value Reference Range Interpretation Comme nts TOTAL BILI (test code = 0184634291) 0.5 mg/dL 0.1-1.1 BILI UNCON (test code = 0136066777) 0.5 mg/dL 0.1-1.1 BILI CONJ (test code = 9365370060) 0.0 mg/dL 0-0.3 T PROTEIN (test code = 0524011966) 7.4 g/dL 6.3-8.2 ALBUMIN (test code = 6357725236) 4.4 g/dL 3.5-5 ALK PHOS (test code = 6849995082) 47 U/L 34-122 ALTv (test code = 1742-6) 36 U/L 5-35 H AST(SGOT) (test code = 2391409478) 35 U/L 13-40 Lab Interpretation (test cod e = 14422-4) Abnormal [facility] / [id number] 00:21:00 * Test Item Value Reference Range Interpretation Comme [facility] PROTIME PATIENT (test code = 5964-2) See_Comment L [Automated messa ge] The system which generated this result transmitted reference range: 12.0 - 14.7 Seconds. The reference range was not used to interpret this result as normal/abnormal. INR (test code = 6301-6) Normal INR <1.1; Warfarin Therapeutic range 2.0 to 3.0 or 2.5 to 3.5, depending upon the indications. Lab Interpretation (test code = 39760-2) [facility]normal [facility] 00:19:00* Test Item Value Reference Range Interpretation Comme [facility] APTT Patient (test code = 3173-2) See_Comment [Automated message] The system which generated this result transmitted reference range: 23 - 38 Seconds. The reference range was not used to interpret this result as normal/abnormal. DAO (test code = DAO) The [facility] patient population mean normal value for aPTT is 30 seconds. Lab Interpretation (test code = 81401-5) Normal [facility] + LACTIC [id number] 00:10:00* Test Item Value Reference Range Interpretation Comme [facility] PH (test code = 2) 7.35-7.45 L PCO2 (test code = 6036102742) See_Comment H [Automated messa ge] The system which generated this result transmitted reference range: 35 - 45 mmHg. The reference range was not used to interpret this result as normal/abnormal. PO2 (test code = 5367623423) See_Comment L [Automated messa ge] The system which generated this result transmitted reference range: 80 - 100 mmHg. The reference range was not used to interpret this result as normal/abnormal. HCO3 (test code = 0954066621) See_Comment H [Automated messa ge] The system which generated this result transmitted reference range: 22 - 26 mEq/L. The reference range was not used to interpret this result as normal/abnormal. BE (test code = 4201424021) See_Comment H [Automated messa ge] The system which generated this result transmitted reference range: -3.0 - 3.0 mEq/L. The reference range was not used to interpret this result as normal/abnormal. THB (test code = 5981147838) 14.9 g/dL 12-16 %O2HB (test code = 9962203167) 85.5 % 94-99 L %COHB ART (test code = 8899374152) 7.2 % 0-1.5 H %METHB ART (test code = 7760101841) 0.3 % 0.4-1.5 L VOL%O2 ART (test code = 6318942269) 17.9 % 15-23 NA (test code = 1505665552) 133 mmol/L 135-145 L K+ (test code = 7033292848) 4.0 mmol/L 3.5-5 AC CA IONZ (test code = 4058458969) 4.60 mg/dL 4.5-5.3 GLUCOSE (test code = 3214847679) 118 mg/dL 70-110 H LACTIC ACID (test code = 3083041968) 1.42 mmol/L 0.5-2.2 Lab Interpretation (test code = 07873-6) Abnormal [facility] WITH [id number] 00:05:00* Test Item Value Reference Range Interpretation Comme nts WBC (test code = 6690-2) See_Comment H [Automated [employer]] The system which generated this result transmitted reference range: 4.30 - 11.10 10*3/?L. The reference range was not used to interpret this result as normal/abnormal. RBC (test code = 789-8) See_Comment [Automated [employer]] The system which generated this result transmitted reference range: 3.93 - 5.25 10*6/?L. The reference range was not used to interpret this result as normal/abnormal. HGB (test code = 718-7) 14.2 g/dL 11.6-15 HCT (test code = 4544-3) 44.0 % 35.7-45.2 MCV (test code = 787-2) 97.6 fL 80.6-95.5 H MCH (test code = 785-6) 31.5 pg 25.9-32.8 MCHC (test code = 786-4) 32.3 g/dL 31.6-35.1 RDW-SD (test code = 41574-1) 49.3 fL 39-49.9 RDW-CV (test code = 788-0) 13.6 % 12-15.5 PLT (test code = 777-3) See_Comment [Automated messa ge] The system which generated this result transmitted reference range: 166 - 358 10*3/?L. The reference range was not used to interpret this result as normal/abnormal. MPV (test code = 12468-5) 8.9 fL 9.5-12.9 L NRBC/100 WBC (test code = 2033348404) See_Comment [Automated [email or web address] ssage] The system which generated this result transmitted reference range: 0.0 - 10.0 /100 WBCs. The reference range was not used to interpret this result as normal/abnormal. NRBC x10^3 (test code = 3691091631) <0.01 See_Comment [Automated messa ge] The system which generated this result transmitted reference range: 10*3/?L. The reference range was not used to interpret this result as normal/abnormal. GRAN MAT (NEUT) % (test code = 770-8) 69.2 % IMM GRAN % (test code = 7719078066) 0.90 % LYMPH % (test code = 736-9) 19.1 % MONO % (test code = 5905-5) 8.4 % EOS % (test code = 713-8) 2.0 % BASO % (test code = 706-2) 0.4 % GRAN MAT x10^3(ANC) (test code = 2885822505) 7.85 10*3/uL 1.88-7.09 H IMM GRAN x10^3 (test code = 0377797009) 0.10 10*3/uL 0-0.06 H LYMPH x10^3 (test code = 731-0) 2.16 10*3/uL 1.32-3.29 MONO x10^3 (test code = 742-7) 0.95 10*3/uL 0.33-0.92 H EOS x10^3 (test code = 711-2) 0.23 10*3/uL 0.03-0.39 BASO x10^3 (test code = 704-7) 0.04 10*3/uL 0.01-0.07 Lab Interpretation (test code = 23706-1) [facility] (NA, K, CL, CO2, GLUCOSE, BUN, CREATININE, CA)2020-02-13 11:47:00* Test Item Value Reference Range Interpretation Comme nts NA (test code = 3528041471) 139 mmol/L 135-145 K (test code = 6051644535) 4.1 mmol/L 3.5-5 CL (test code = 8870826568) 97 mmol/L 98-108 L CO2 TOTAL (test code = 3488048170) 41 mmol/L 23-31 H AGAP (test code = 4568880637) 2-16 L BUN (test code = 8010095218) 18 mg/dL 7-23 GLUCOSE (test code = 2003297723) 88 mg/dL 70-110 CREATININE (test code = 4937809592) 0.48 mg/dL 0.5-1.04 L CALCIUM (test code = 2278093328) 8.8 mg/dL 8.6-10.6 eGFR Calculation (Non-) (test code = 5964359777) mL/min/1.73m2 eGFR Calculation () (test code = 9381101123) mL/min/1.73m2 DAO (test code = DAO) Association of Glomerular Filtration Rate (GFR) and Staging of Kidney Disease* + --+ --+ ------+| GFR (mL/min/1.73 m2) ?| With Kidney Damage ?| ?Without Kidney Damage+ --------+ --------+ +| ?>90 ?| ?Stage one ?| ? Normal ?+ ---+ ---+ -------+| ?60-89 ?| ?Stage two ?| ? Decreased GFR ? + --+ --+ ------+| ?30-59 ?| ?Stage three ?| ? Stage three ? + --+ --+ ------+| ?15-29 ?| ?Stage four ? | ? Stage four ?+ ---+ ---+ -------+| ?<15 (or dialysis) ? ?| ?Stage five ? | ? Stage five ?+ ---+ ---+ -------+ *Each stage assumes the associated GFR level has been in effect for at least three months. ?Stages 1 to 5, with or without kidney disease, indicate chronic kidney disease. Notes: Determination of stages one and two (with eGFR >59mL/min/1.73 m2) requires estimation of kidney damage for at least three months as defined by structural or functional abnormalities of the kidney, manifested by either:Pathological abnormalities or Markers of kidney damage (including abnormalities in the composition of the blood or urine or abnormalities in imaging tests). Lab Interpretation (test code = 02658-2) Abnormal [facility] WITH [id number] 11:01:00* Test Item Value Reference Range Interpretation Comme nts WBC (test code = 6690-2) See_Comment H [Automated [employer]] The system which generated this result transmitted reference range: 4.30 - 11.10 10*3/?L. The reference range was not used to interpret this result as normal/abnormal. RBC (test code = 789-8) See_Comment [Automated [employer]] The system which generated this result transmitted reference range: 3.93 - 5.25 10*6/?L. The reference range was not used to interpret this result as normal/abnormal. HGB (test code = 718-7) 12.3 g/dL 11.6-15 HCT (test code = 4544-3) 38.5 % 35.7-45.2 MCV (test code = 787-2) 97.7 fL 80.6-95.5 H MCH (test code = 785-6) 31.2 pg 25.9-32.8 MCHC (test code = 786-4) 31.9 g/dL 31.6-35.1 RDW-SD (test code = 99554-6) 51.2 fL 39-49.9 H RDW-CV (test code = 788-0) 14.2 % 12-15.5 PLT (test code = 777-3) See_Comment [Automated [employer]] The system which generated this result transmitted reference range: 166 - 358 10*3/?L. The reference range was not used to interpret this result as normal/abnormal. MPV (test code = 31315-0) 9.1 fL 9.5-12.9 L NRBC/100 WBC (test code = 1146983576) See_Comment [Automated me ssage] The system which generated this result transmitted reference range: 0.0 - 10.0 /100 WBCs. The reference range was not used to interpret this result as normal/abnormal. NRBC x10^3 (test code = 6210469017) <0.01 See_Comment [Automated messa ge] The system which generated this result transmitted reference range: 10*3/?L. The reference range was not used to interpret this result as normal/abnormal. GRAN MAT (NEUT) % (test code = 770-8) 73.4 % IMM GRAN % (test code = 8437796229) 0.40 % LYMPH % (test code = 736-9) 18.1 % MONO % (test code = 5905-5) 7.6 % EOS % (test code = 713-8) 0.4 % BASO % (test code = 706-2) 0.1 % GRAN MAT x10^3(ANC) (test code = 6354517653) 9.93 10*3/uL 1.88-7.09 H IMM GRAN x10^3 (test code = 7154263699) 0.05 10*3/uL 0-0.06 LYMPH x10^3 (test code = 731-0) 2.45 10*3/uL 1.32-3.29 MONO x10^3 (test code = 742-7) 1.03 10*3/uL 0.33-0.92 H EOS x10^3 (test code = 711-2) 0.06 10*3/uL 0.03-0.39 BASO x10^3 (test code = 704-7) <0.03 0.01-0.07 Lab Interpretation (test code = 00600-1) Abnormal [facility] Metabolic Panel (NA, K, CL, CO2, GLUCOSE, BUN, CREATININE, CA)2020-02-12 11:00:00* Test Item Value Reference Range Interpretation Comme nts NA (test code = 6243453366) 138 mmol/L 135-145 K (test code = 9947473298) 4.2 mmol/L 3.5-5 CL (test code = 2189019838) 94 mmol/L 98-108 L CO2 TOTAL (test code = 2580159353) 40 mmol/L 23-31 H AGAP (test code = 7961783249) 2-16 BUN (test code = 3777472177) 24 mg/dL 7-23 H GLUCOSE (test code = 9481820123) 98 mg/dL 70-110 CREATININE (test code = 8456722968) 0.47 mg/dL 0.5-1.04 L CALCIUM (test code = 1434389157) 8.8 mg/dL 8.6-10.6 eGFR Calculation (Non-) (test code = 5963877417) mL/min/1.73m2 eGFR Calculation () (test code = 8461006670) mL/min/1.73m2 DAO (test code = DAO) Association of Glomerular Filtration Rate (GFR) and Staging of Kidney Disease* + --+ --+ ------+| GFR (mL/min/1.73 m2) ?| With Kidney Damage ?| ?Without Kidney Damage+ --------+ --------+ +| ?>90 ?| ?Stage one ?| ? Normal ?+ ---+ ---+ -------+| ?60-89 ?| ?Stage two ?| ? Decreased GFR ? + --+ --+ ------+| ?30-59 ?| ?Stage three ?| ? Stage three ? + --+ --+ ------+| ?15-29 ?| ?Stage four ? | ? Stage four ?+ ---+ ---+ -------+| ?<15 (or dialysis) ? ?| ?Stage five ? | ? Stage five ?+ ---+ ---+ -------+ *Each stage assumes the associated GFR level has been in effect for at least three months. ?Stages 1 to 5, with or without kidney disease, indicate chronic kidney disease. Notes: Determination of stages one and two (with eGFR >59mL/min/1.73 m2) requires estimation of kidney damage for at least three months as defined by structural or functional abnormalities of the kidney, manifested by either:Pathological abnormalities or Markers of kidney damage (including abnormalities in the composition of the blood or urine or abnormalities in imaging tests). Lab Interpretation (test code = 06982-8) Abnormal [facility] WITH [id number] 10:49:00* Test Item Value Reference Range Interpretation Comme nts WBC (test code = 6690-2) See_Comment H [Automated message] The system which generated this result transmitted reference range: 4.30 - 11.10 10*3/?L. The reference range was not used to interpret this result as normal/abnormal. RBC (test code = 789-8) See_Comment L [Automated message] The system which generated this result transmitted reference range: 3.93 - 5.25 10*6/?L. The reference range was not used to interpret this result as normal/abnormal. HGB (test code = 718-7) 12.0 g/dL 11.6-15 HCT (test code = 4544-3) 38.4 % 35.7-45.2 MCV (test code = 787-2) 102.1 fL 80.6-95.5 H MCH (test code = 785-6) 31.9 pg 25.9-32.8 MCHC (test code = 786-4) 31.3 g/dL 31.6-35.1 L RDW-SD (test code = 13442-2) 53.7 fL 39-49.9 H RDW-CV (test code = 788-0) 14.1 % 12-15.5 PLT (test code = 777-3) See_Comment [Automated message] The system which generated this result transmitted reference range: 166 - 358 10*3/?L. The reference range was not used to interpret this result as normal/abnormal. MPV (test code = 61182-6) 9.3 fL 9.5-12.9 L NRBC/100 WBC (test code = 6724638505) See_Comment [Automated message] The system which generated this result transmitted reference range: 0.0 - 10.0 /100 WBCs. The reference range was not used to interpret this result as normal/abnormal. NRBC x10^3 (test code = 8067527307) <0.01 See_Comment [Automated message] The system which generated this result transmitted reference range: 10*3/?L. The reference range was not used to interpret this result as normal/abnormal. GRAN MAT (NEUT) % (test code = 770-8) 77.4 % IMM GRAN % (test code = 8383503881) 1.10 % LYMPH % (test code = 736-9) 13.5 % MONO % (test code = 5905-5) 7.6 % EOS % (test code = 713-8) 0.2 % BASO % (test code = 706-2) 0.2 % GRAN MAT x10^3(ANC) (test code = 7814973207) 10.13 10*3/uL 1.88-7.09 H IMM GRAN x10^3 (test code = 6196475245) 0.14 10*3/uL 0-0.06 H LYMPH x10^3 (test code = 731-0) 1.76 10*3/uL 1.32-3.29 MONO x10^3 (test code = 742-7) 0.99 10*3/uL 0.33-0.92 H EOS x10^3 (test code = 711-2) <0.03 0.03-0.39 L BASO x10^3 (test code = 704-7) <0.03 0.01-0.07 Lab Interpretation (test code = 30019-0) Abnormal [facility] Metabolic Panel (NA, K, CL, CO2, GLUCOSE, BUN, CREATININE, CA)2020-02-11 10:27:00* Test Item Value Reference Range Interpretation Comme nts NA (test code = 6901638572) 137 mmol/L 135-145 K (test code = 2813134881) 4.5 mmol/L 3.5-5 CL (test code = 6930891984) 94 mmol/L 98-108 L CO2 TOTAL (test code = 9576585015) 39 mmol/L 23-31 H AGAP (test code = 1248400464) 2-16 BUN (test code = 1324263532) 17 mg/dL 7-23 GLUCOSE (test code = 6165807326) 165 mg/dL 70-110 H CREATININE (test code = 1518004702) 0.42 mg/dL 0.5-1.04 L CALCIUM (test code = 8135661343) 8.7 mg/dL 8.6-10.6 eGFR Calculation (Non-) (test code = 2166014932) mL/min/1.73m2 eGFR Calculation () (test code = 3035610709) mL/min/1.73m2 DAO (test code = DAO) Association of Glomerular Filtration Rate (GFR) and Staging of Kidney Disease* + --+ --+ ------+| GFR (mL/min/1.73 m2) ?| With Kidney Damage ?| ?Without Kidney Damage+ --------+ --------+ +| ?>90 ?| ?Stage one ?| ? Normal ?+ ---+ ---+ -------+| ?60-89 ?| ?Stage two ?| ? Decreased GFR ? + --+ --+ ------+| ?30-59 ?| ?Stage three ?| ? Stage three ? + --+ --+ ------+| ?15-29 ?| ?Stage four ? | ? Stage four ?+ ---+ ---+ -------+| ?<15 (or dialysis) ? ?| ?Stage five ? | ? Stage five ?+ ---+ ---+ -------+ *Each stage assumes the associated GFR level has been in effect for at least three months. ?Stages 1 to 5, with or without kidney disease, indicate chronic kidney disease. Notes: Determination of stages one and two (with eGFR >59mL/min/1.73 m2) requires estimation of kidney damage for at least three months as defined by structural or functional abnormalities of the kidney, manifested by either:Pathological abnormalities or Markers of kidney damage (including abnormalities in the composition of the blood or urine or abnormalities in imaging tests). Lab Interpretation (test code = 33674-2) Abnormal [facility] WITH [id number] 09:47:00* Test Item Value Reference Range Interpretation Comme nts WBC (test code = 6690-2) See_Comment H [Automated message] The system which generated this result transmitted reference range: 4.30 - 11.10 10*3/?L. The reference range was not used to interpret this result as normal/abnormal. RBC (test code = 789-8) See_Comment L [Automated message] The system which generated this result transmitted reference range: 3.93 - 5.25 10*6/?L. The reference range was not used to interpret this result as normal/abnormal. HGB (test code = 718-7) 12.0 g/dL 11.6-15 HCT (test code = 4544-3) 37.7 % 35.7-45.2 MCV (test code = 787-2) 99.0 fL 80.6-95.5 H MCH (test code = 785-6) 31.5 pg 25.9-32.8 MCHC (test code = 786-4) 31.8 g/dL 31.6-35.1 RDW-SD (test code = 55800-8) 50.8 fL 39-49.9 H RDW-CV (test code = 788-0) 13.8 % 12-15.5 PLT (test code = 777-3) See_Comment [Automated message] The system which generated this result transmitted reference range: 166 - 358 10*3/?L. The reference range was not used to interpret this result as normal/abnormal. MPV (test code = 15541-9) 9.0 fL 9.5-12.9 L NRBC/100 WBC (test code = 2954346889) See_Comment [Automated message] The system which generated this result transmitted reference range: 0.0 - 10.0 /100 WBCs. The reference range was not used to interpret this result as normal/abnormal. NRBC x10^3 (test code = 6392585145) <0.01 See_Comment [Automated message] The system which generated this result transmitted reference range: 10*3/?L. The reference range was not used to interpret this result as normal/abnormal. GRAN MAT (NEUT) % (test code = 770-8) 93.5 % IMM GRAN % (test code = 7855945296) 0.60 % LYMPH % (test code = 736-9) 3.5 % MONO % (test code = 5905-5) 2.3 % EOS % (test code = 713-8) 0.0 % BASO % (test code = 706-2) 0.1 % GRAN MAT x10^3(ANC) (test code = 5665135366) 11.83 10*3/uL 1.88-7.09 H IMM GRAN x10^3 (test code = 5420016279) 0.07 10*3/uL 0-0.06 H LYMPH x10^3 (test code = 731-0) 0.44 10*3/uL 1.32-3.29 L MONO x10^3 (test code = 742-7) 0.29 10*3/uL 0.33-0.92 L EOS x10^3 (test code = 711-2) <0.03 0.03-0.39 L BASO x10^3 (test code = 704-7) <0.03 0.01-0.07 Lab Interpretation (test code = 78835-4) Abnormal [facility] WITH [id number] 10:43:00* Test Item Value Reference Range Interpretation Comme nts WBC (test code = 6690-2) See_Comment H [Automated message] The system which generated this result transmitted reference range: 4.30 - 11.10 10*3/?L. The reference range was not used to interpret this result as normal/abnormal. RBC (test code = 789-8) See_Comment [Automated message] The system which generated this result transmitted reference range: 3.93 - 5.25 10*6/?L. The reference range was not used to interpret this result as normal/abnormal. HGB (test code = 718-7) 14.2 g/dL 11.6-15 HCT (test code = 4544-3) 43.8 % 35.7-45.2 MCV (test code = 787-2) 97.8 fL 80.6-95.5 H MCH (test code = 785-6) 31.7 pg 25.9-32.8 MCHC (test code = 786-4) 32.4 g/dL 31.6-35.1 RDW-SD (test code = 41113-1) 50.7 fL 39-49.9 H RDW-CV (test code = 788-0) 14.0 % 12-15.5 PLT (test code = 777-3) See_Comment [Automated message] The system which generated this result transmitted reference range: 166 - 358 10*3/?L. The reference range was not used to interpret this result as normal/abnormal. MPV (test code = 80433-8) 9.4 fL 9.5-12.9 L NRBC/100 WBC (test code = 9075808875) See_Comment [Automated message] The system which generated this result transmitted reference range: 0.0 - 10.0 /100 WBCs. The reference range was not used to interpret this result as normal/abnormal. NRBC x10^3 (test code = 1893965699) <0.01 See_Comment [Automated message] The system which generated this result transmitted reference range: 10*3/?L. The reference range was not used to interpret this result as normal/abnormal. GRAN MAT (NEUT) % (test code = 770-8) 94.4 % IMM GRAN % (test code = 7393364206) 0.80 % LYMPH % (test code = 736-9) 4.1 % MONO % (test code = 5905-5) 0.5 % EOS % (test code = 713-8) 0.0 % BASO % (test code = 706-2) 0.2 % GRAN MAT x10^3(ANC) (test code = 6124730291) 15.87 10*3/uL 1.88-7.09 H IMM GRAN x10^3 (test code = 1352428055) 0.14 10*3/uL 0-0.06 H LYMPH x10^3 (test code = 731-0) 0.69 10*3/uL 1.32-3.29 L MONO x10^3 (test code = 742-7) 0.09 10*3/uL 0.33-0.92 L EOS x10^3 (test code = 711-2) <0.03 0.03-0.39 L BASO x10^3 (test code = 704-7) 0.03 10*3/uL 0.01-0.07 Lab Interpretation (test code = 72087-7) Abnormal [facility] Metabolic Panel (NA, K, CL, CO2, GLUCOSE, BUN, CREATININE, CA)2020-02-10 09:48:00* Test Item Value Reference Range Interpretation Comme nts NA (test code = 7238131353) 133 mmol/L 135-145 L K (test code = 3115020827) 5.2 mmol/L 3.5-5 H CL (test code = 8038820630) 89 mmol/L 98-108 L CO2 TOTAL (test code = 1131355066) 38 mmol/L 23-31 H AGAP (test code = 7154776462) 2-16 BUN (test code = 0928962016) 19 mg/dL 7-23 GLUCOSE (test code = 0706429667) 151 mg/dL 70-110 H CREATININE (test code = 6782727241) 0.41 mg/dL 0.5-1.04 L CALCIUM (test code = 9103101284) 8.8 mg/dL 8.6-10.6 eGFR Calculation (Non-) (test code = 1137041808) mL/min/1.73m2 eGFR Calculation () (test code = 1470335754) mL/min/1.73m2 DAO (test code = DAO) Association of Glomerular Filtration Rate (GFR) and Staging of Kidney Disease* + --+ --+ ------+| GFR (mL/min/1.73 m2) ?| With Kidney Damage ?| ?Without Kidney Damage+ --------+ --------+ +| ?>90 ?| ?Stage one ?| ? Normal ?+ ---+ ---+ -------+| ?60-89 ?| ?Stage two ?| ? Decreased GFR ? + --+ --+ ------+| ?30-59 ?| ?Stage three ?| ? Stage three ? + --+ --+ ------+| ?15-29 ?| ?Stage four ? | ? Stage four ?+ ---+ ---+ -------+| ?<15 (or dialysis) ? ?| ?Stage five ? | ? Stage five ?+ ---+ ---+ -------+ *Each stage assumes the associated GFR level has been in effect for at least three months. ?Stages 1 to 5, with or without kidney disease, indicate chronic kidney disease. Notes: Determination of stages one and two (with eGFR >59mL/min/1.73 m2) requires estimation of kidney damage for at least three months as defined by structural or functional abnormalities of the kidney, manifested by either:Pathological abnormalities or Markers of kidney damage (including abnormalities in the composition of the blood or urine or abnormalities in imaging tests). Lab Interpretation (test code = 95200-9) [facility] [id number] 07:18:561. No pulmonary embolism. 2. Chronic centrilobular emphysematous changes with an upper lobepredominance. Preliminary Report Dictated by Resident: Angel Bruce MD., have reviewed this study and agree with the abovereport.PROCEDURE: CT ANGIO CHEST WITH CONTRAST - PE PROTOCOL CLINICAL INDICATION: Shortness of breath ? COMPARISON: CT 10/06/2016, MR abdomen 11/13/2016, same day chest radiograph. TECHNIQUE AND FINDINGS: A helical CT scan was performed and reconstructedusing 1.25 mm slice thickness from the lung bases through the apices afterthe uncomplicated administration of 100 cc of intravenous Omnipaquecontrast. Sagittal and coronal reconstructions, and axial maximum intensityprojections were generated and reviewed to further define anatomy andpossible pathology. (DFOV = 33.8 cm) FINDINGS: PULMONARY ARTERIES: Technically adequate enhancement of the pulmonaryarteries reveals no pulmonary embolism. LINES AND TUBES: None LOWER NECK/THYROID: Streak artifact limits evaluation of the thyroid. Nodiscrete nodules are identified. LUNGS/PLEURA: Changes of upper lobe predominantcentrilobular emphysema.Linear densities in the left apex likely represents scarring. Atelectasisisnoted in the right lower lobe and lingula. No focal consolidation,pleural effusion, or pneumothorax. Calcified granuloma in the right upper lobe. CENTRAL AIRWAY: No mucous plugging or bronchial wall thickening. Minimalbronchiectasis in the bilateral lower lobes. A focus of tractionbronchiectasis inthe left lower lobe is unchanged (5:151). MEDIASTINUM: Mediastinal and hilar nodes measure up to 1.0 cm in diameter.Normal cardiac morphology. No pericardial effusion. AORTA AND GREAT VESSELS: Mild to moderate atherosclerotic calcificationsaffect the aortic arch. The visualized portions of the aorta are normal incaliber. BONES AND SOFT TISSUES: Mild spondylosis of the thoracic spine. Remotebilateral rib fractures. Changes of a right mastectomy and axillary lymph node dissection. VISUALIZED UPPER ABDOMEN: A hypoattenuating lesion in segment wasconsistent with a hemangioma on prior multiphasic imaging. Hypoattenuatingright superior pole cystic structure demonstrates attenuation higher thanexpected of simple fluid and was consistent with a simple cyst on prior MRimaging. Thickening of theleft adrenal gland without a discrete nodule. [facility], Radiant Results Inft User - 02/10/2020 2:20 AM CDTPROCEDURE: CT ANGIO CHEST WITH CONTRAST - PE PROTOCOLCLINICAL INDICATION: Shortness of breath COMPARISON: CT 10/06/2016, MR abdomen 11/13/2016, same day chest radiograph.TECHNIQUE AND FINDINGS: A helical CT scan was performed and reconstructedusing 1.25 mm slice thickness from the lung bases through the apices afterthe uncomplicated administration of 100 cc of intravenous Omnipaquecontrast. Sagittal and coronal reconstructions, and axial maximum intensityprojections were generated and reviewed to further define anatomy andpossible pathology. (DFOV = 33.8 cm)FINDINGS: PULMONARY ARTERIES: Technically adequate enhancement of the pulmonaryarteries reveals no pulmonary embolism.LINES AND TUBES: NoneLOWER NECK/THYROID: Streak artifact limits evaluation of the thyroid. Nodiscrete nodules are identified.LUNGS/PLEURA: Changes of upper lobe predominant centrilobular emphysema.Linear densities in t he left apex likely represents scarring. Atelectasisis noted in the right lower lobe and lingula. No focal consolidation,pleural effusion, or pneumothorax.Calcified granuloma in the right upper lobe.CENTRAL AIRWAY: No mucous plugging or bronchial wall thickening. Minimalbronchiectasis in the bilateral lower lobes. A focus of tractionbronchiectasis in the left lower lobe is unchanged (5:151).MEDIASTINUM: Mediastinal and hilar nodes measure up to 1.0 cm in diameter.Normal cardiac morphology. No pericardial effusion. AORTA AND GREAT VESSELS: Mild to moderate atherosclerotic calcificationsaffect the aortic arch. The visualized portions of the aorta are normal incaliber.BONES AND SOFT TISSUES: Mild spondylosis of the thoracic spine. Remotebilateral rib fractures.Changes of a right mastectomy and axillary lymph node dissection.VISUALIZED UPPER ABDOMEN: A hypoattenuating lesion in segment wa sconsistent with a hemangioma on prior multiphasic imaging. Hypoattenuatingright superior pole cystic structure demonstrates attenuation higher thanexpected of simple fluid and was consistent with a simple cyst on prior MRimaging. Thickening of the left adrenal gland without a discrete nodule.IMPRESSION1. No pulmonary embolism.2. Chronic centrilobular emphysematous changes with an upper lobepredominance.Preliminary Report Dictated by Resident: Scout Hester, Angel Garcia MD., have reviewed this study and agree with the abovereport.[facility] VW [id number] 05:37:49No findings suggestive of COVID-19 pneumonia. Disclaimer: Generally, the findings on chest imaging in COVID-19 are notspecific, and overlap with other infections, including influenza, H1N1,SARS and MERS.According to the Centers for Disease Control (CDC) and the [employer] [employer], viral testing remains the only specific method of diagnosiseven if CXR or CT findings are suggestive of COVID-19. Preliminary Report Dictated by Resident: Angel Mayo MD., have reviewed this study and agree with the abovereport.PROCEDURE: CHEST XRAY CLINICAL INDICATION: dyspnea COMPARISON: Chest radiograph 01/29/2020 FINDINGS: The lungs are emphysematous. Bibasilar subsegmental atelectasis is present.Pericardial fat is prominent. The lungs are otherwise clear. The heart is normal in size. No acute bony abnormality. Right axillarysurgical clips are unchanged. [facility], Radiant Results Inft User - 02/10/2020 12:38 AM CDTPROCEDURE: CHEST XRAYCLINICAL INDICATION: dyspnea COMPARISON: Chest radiograph 01/29/2020FINDINGS:The lungs are emphysematous. Bibasilar subsegmental atelectasis is present.Pericardial fat is prominent. The lungs are otherwise clear.The heart is normal in size. No acute bony abnormality. Right axillarysurgical clips are unchanged.IMPRESSIONNo findings suggestive of COVID-19 pneumonia.Disclaimer: Generally, the findings on chest imaging in COVID-19 are notspecific,and overlap with other infections, including influenza, H1N1,SARS and MERS.According to the Centersfor Disease Control (CDC) and the [place] [employer], viral testing remains the only specific method of diagnosiseven if CXR or CT findings are suggestive of COVID-19. Preliminary Report Dictated by Resident: Angel Adair MD., have reviewed this study and agree with the joyce sims.[facility] WITH [id number] 01:52:00* Test Item Value Reference Range Interpretation Comme nts WBC (test code = 6690-2) See_Comment H [Automated [employer]] The system which generated this result transmitted reference range: 4.30 - 11.10 10*3/?L. The reference range was not used to interpret this result as normal/abnormal. RBC (test code = 789-8) See_Comment [Automated [employer]] The system which generated this result transmitted reference range: 3.93 - 5.25 10*6/?L. The reference range was not used to interpret this result as normal/abnormal. HGB (test code = 718-7) 13.5 g/dL 11.6-15 HCT (test code = 4544-3) 40.7 % 35.7-45.2 MCV (test code = 787-2) 96.2 fL 80.6-95.5 H MCH (test code = 785-6) 31.9 pg 25.9-32.8 MCHC (test code = 786-4) 33.2 g/dL 31.6-35.1 RDW-SD (test code = 37543-3) 50.6 fL 39-49.9 H RDW-CV (test code = 788-0) 14.4 % 12-15.5 PLT (test code = 777-3) See_Comment [Automated [employer]] The system which generated this result transmitted reference range: 166 - 358 10*3/?L. The reference range was not used to interpret this result as normal/abnormal. MPV (test code = 86062-8) 9.4 fL 9.5-12.9 L IPF % (test code = 1422092683) 2.4 % 1.3-7.7 Platelet count measured by fluorescence method. NRBC/100 WBC (test code = 7926991315) See_Comment [Automated [employer]] The system which generated this result transmitted reference range: 0.0 - 10.0 /100 WBCs. The reference range was not used to interpret this result as normal/abnormal. NRBC x10^3 (test code = 7386675476) <0.01 See_Comment [Automated [employer] [facility]] The system which generated this result transmitted reference range: 10*3/?L. The reference range was not used to interpret this result as normal/abnormal. GRAN MAT (NEUT) % (test code = 770-8) 67.3 % IMM GRAN % (test code = 4257414801) 0.80 % LYMPH % (test code = 736-9) 22.2 % MONO % (test code = 5905-5) 8.4 % EOS % (test code = 713-8) 1.1 % BASO % (test code = 706-2) 0.2 % GRAN MAT x10^3(ANC) (test code = 3103847191) 9.83 10*3/uL 1.88-7.09 H IMM GRAN x10^3 (test code = 6378600432) 0.11 10*3/uL 0-0.06 H LYMPH x10^3 (test code = 731-0) 3.24 10*3/uL 1.32-3.29 MONO x10^3 (test code = 742-7) 1.22 10*3/uL 0.33-0.92 H EOS x10^3 (test code = 711-2) 0.16 10*3/uL 0.03-0.39 BASO x10^3 (test code = 704-7) 0.03 10*3/uL 0.01-0.07 HYPERSEG NEUTS (test code = 765-8) Present See_Comment A [Automated [employer] [facility]] The system which generated this result transmitted reference range: (none). The reference range was not used to interpret this result as normal/abnormal. Lab Interpretation (test code = 08710-1) Abnormal [facility]th[facility] (PT[facility] / [id number] 01:39:00 * Test Item Value Reference Range Interpretation Comme [facility] PROTIME PATIENT (test code = 5964-2) See_Comment L [Automated [employer]] The system which generated this result transmitted reference range: 12.0 - 14.7 Seconds. The reference range was not used to interpret this result as normal/abnormal. INR (test code = 6301-6) Normal INR <1.1; Warfarin Therapeutic range 2.0 to 3.0 or 2.5 to 3.5, depending upon the indications. Lab Interpretation (test code = 82922-1) [facility]normal [facility]2020-[facility] 01:37:00* Test Item Value Reference Range Interpretation Comme nts APTT Patient (test code = 3173-2) See_Comment [Automated message] The system which generated this result transmitted reference range: 23 - 38 Seconds. The reference range was not used to interpret this result as normal/abnormal. DAO (test code = DAO) The [facility] patient population mean normal value for aPTT is 30 seconds. Lab Interpretation (test code = 85750-2) Normal [facility] HospitalTroponin [id number] 01:00:00* Test Item Value Reference Range Interpretation Comme nts TROPONIN I (test code = 5203863588) <0.012 See_Comment [Automated message] The system which generated this result transmitted reference range: <=0.034 ng/mL. The reference range was not used to interpret this result as normal/abnormal. DAO (test code = DAO) Equal or Less than 0.034 ng/ml---Normal ?Note: Cardiac troponin begins to rise 3-4 hours after the onset of ischemia. Repeat in 4-6 hours if the sample was drawn within 3-4 hours of the onset of the symptom and found normal. Between 0.035 and 0.120 ng/mL--- Borderline. Questionable myocardial injury or necrosis ? ?Note: Serial measurement may be necessary to confirm or exclude the diagnosis of myocardial injury or necrosis; Clinical correlation (symptoms, EKGs, imaging studies, and others) required; Repeat in 4-6 hours if clinically indicated. ? Equal or Higher than 0.121 ng/mL---Abnormal. Myocardial Injury or Necrosis Likely ? Biotin has been reported to cause a negative bias, interpret results relative to patient's use of biotin. ? Lab Interpretation (test code = 08211-9) Normal [facility] [id number] 00:57:00* Test Item Value Reference Range Interpretation Comme nts NT-proBNP (test code = 5033344668) 227 pg/mL See_Comment H [Automated message] The system which generated this result transmitted reference range: <=125. The reference range was not used to interpret this result as normal/abnormal. DAO (test code = DAO) Biotin has been reported to cause a negative bias, interpret results relative to patient's use of biotin. Lab Interpretation (test code = 14460-6) Abnormal [facility]ON[facility] COVID-19 [id number] 00:54:00* Test Item Value Reference Range Interpretation Comme nts SARS-CoV-2 Rapid ID NOW (test code = 16636-3) Not Detected Not Detected DAO (test code = DAO) ID NOW COVID-19 As say is an isothermal nucleic acid amplification test intended for the qualitative detection of nucleic acid from SARS-CoV-2 viral RNA in nasopharyngeal (DIST[employer] REPORTER) specimens. It is used under Emergency Use Authorization (EUA) by FDA. The limit of detection (LOD) of the assay is 125 Genome Equivalents/mL. A positive result is indicative of the presence of SARS-CoV-2 RNA. ?Clinical correlation with patient history and other diagnostic information is necessary to determine patient infection status. A negative (Not Detected) result does not preclude SARS-CoV-2 infection. Clinical correlation with patient history and other diagnostic information should be used in patient management decisions. Invalid: Please collect a new specimen for repeat patient testing if clinically indicated. Lab Interpretation (test code = 57756-1) Normal [facility] (NA, K, CL, CO2, GLUCOSE, BUN, CREATININE, CA)2020-02-10 00:48:00* Test Item Value Reference Range Interpretation Comme nts NA (test code = 2748381347) 131 mmol/L 135-145 L K (test code = 8105384030) 4.4 mmol/L 3.5-5 CL (test code = 7773253623) 89 mmol/L 98-108 L CO2 TOTAL (test code = 2533216660) 38 mmol/L 23-31 H AGAP (test code = 7982615903) 2-16 BUN (test code = 5819178450) 16 mg/dL 7-23 GLUCOSE (test code = 9027220659) 103 mg/dL 70-110 CREATININE (test code = 8385600006) 0.59 mg/dL 0.5-1.04 CALCIUM (test code = 8898327236) 8.5 mg/dL 8.6-10.6 L eGFR Calculation (Non-) (test code = 9734419043) mL/min/1.73m2 eGFR Calculation () (test code = 5026294909) mL/min/1.73m2 DAO (test code = DAO) Association of Glomerular Filtration Rate (GFR) and Staging of Kidney Disease* + --+ --+ ------+| GFR (mL/min/1.73 m2) ?| With Kidney Damage ?| ?Without Kidney Damage+ --------+ --------+ +| ?>90 ?| ?Stage one ?| ? Normal ?+ ---+ ---+ -------+| ?60-89 ?| ?Stage two ?| ? Decreased GFR ? + --+ --+ ------+| ?30-59 ?| ?Stage three ?| ? Stage three ? + --+ --+ ------+| ?15-29 ?| ?Stage four ? | ? Stage four ?+ ---+ ---+ -------+| ?<15 (or dialysis) ? ?| ?Stage five ? | ? Stage five ?+ ---+ ---+ -------+ *Each stage assumes the associated GFR level has been in effect for at least three months. ?Stages 1 to 5, with or without kidney disease, indicate chronic kidney disease. Notes: Determination of stages one and two (with eGFR >59mL/min/1.73 m2) requires estimation of kidney damage for at least three months as defined by structural or functional abnormalities of the kidney, manifested by either:Pathological abnormalities or Markers of kidney damage (including abnormalities in the composition of the blood or urine or abnormalities in imaging tests). Lab Interpretation (test code = 89373-8) [facility] (ALB, T.PRO, BILI T, BU/BC, ALT, AST, ALK PHOS)2020-02-10 00:48:00* Test Item Value Reference Range Interpretation Comme nts TOTAL BILI (test code = 2632410197) 0.5 mg/dL 0.1-1.1 BILI UNCON (test code = 1904069214) 0.6 mg/dL 0.1-1.1 BILI CONJ (test code = 2492058953) 0.0 mg/dL 0-0.3 T PROTEIN (test code = 7585874211) 6.8 g/dL 6.3-8.2 ALBUMIN (test code = 0916952127) 4.2 g/dL 3.5-5 ALK PHOS (test code = 7024986868) 45 U/L 34-122 ALTv (test code = 1742-6) 50 U/L 5-35 H AST(SGOT) (test code = 2546695724) 37 U/L 13-40 Lab Interpretation (test cod e = 72365-8) [facility]ODY, [id number] 11:55:00* Test Item Value Reference Range Interpretation Comme nts Mycoplasma IGM (test code = 5256-3) 0.03 U/L See_Comment INTERPRETIVE INFORMATION: ?Mycoplasma pneumoniae Ab, IgM ?0.76 U/L or less .......... Negative: No clinically ?significant amount of ?M. pneumoniae IgM antibody ?detected. ?0.77 - 0.95 U/L ........... Low Positive: M. pneumoniae- ?specific IgM presumptively ?detected. Collection of a ?follow-up sample in 1-2 ?weeks is recommended to ?assure reactivity. ?0.96 U/L or greater ....... Positive: Highly significant ?amount of M. pneumoniae- ?specific IgM antibody ?detected. However, low levels ?of IgM antibodies may ?occasionally persist for more ?than 12 months post-infection.Performed by [email or web address],[address] [place] [address] Bren[place], [facility] [place] [address] opd.[employer], Michael Penaloza MD, Lab. Director [Automated message] The system which generated this result transmitted reference range: <=0.76. The reference range was not used to interpret this result as normal/abnormal. [facility] Metabolic Panel (NA, K, CL, CO2, GLUCOSE, BUN, CREATININE, CA)2020-02-02 10:21:00* Test Item Value Reference Range Interpretation Comme nts NA (test code = 2375960499) 136 mmol/L 135-145 K (test code = 5148028987) 4.0 mmol/L 3.5-5 CL (test code = 7063733942) 98 mmol/L 98-108 CO2 TOTAL (test code = 1246147521) 37 mmol/L 23-31 H AGAP (test code = 0538876220) 2-16 L BUN (test code = 8052503636) 21 mg/dL 7-23 GLUCOSE (test code = 0975141280) 91 mg/dL 70-110 CREATININE (test code = 8336399272) 0.55 mg/dL 0.5-1.04 CALCIUM (test code = 5109510878) 9.0 mg/dL 8.6-10.6 eGFR Calculation (Non-) (test code = 4193617099) mL/min/1.73m2 eGFR Calculation () (test code = 3136967037) mL/min/1.73m2 DAO (test code = DAO) Association of Glomerular Filtration Rate (GFR) and Staging of Kidney Disease* + --+ --+ ------+| GFR (mL/min/1.73 m2) ?| With Kidney Damage ?| ?Without Kidney Damage+ --------+ --------+ +| ?>90 ?| ?Stage one ?| ? Normal ?+ ---+ ---+ -------+| ?60-89 ?| ?Stage two ?| ? Decreased GFR ? + --+ --+ ------+| ?30-59 ?| ?Stage three ?| ? Stage three ? + --+ --+ ------+| ?15-29 ?| ?Stage four ? | ? Stage four ?+ ---+ ---+ -------+| ?<15 (or dialysis) ? ?| ?Stage five ? | ? Stage five ?+ ---+ ---+ -------+ *Each stage assumes the associated GFR level has been in effect for at least three months. ?Stages 1 to 5, with or without kidney disease, indicate chronic kidney disease. Notes: Determination of stages one and two (with eGFR >59mL/min/1.73 m2) requires estimation of kidney damage for at least three months as defined by structural or functional abnormalities of the kidney, manifested by either:Pathological abnormalities or Markers of kidney damage (including abnormalities in the composition of the blood or urine or abnormalities in imaging tests). Lab Interpretation (test code = 21658-9) Abnormal [facility] WITH [id number] 10:04:00* Test Item Value Reference Range Interpretation Comme nts WBC (test code = 6690-2) See_Comment H [Automated [employer]] The system which generated this result transmitted reference range: 4.30 - 11.10 10*3/?L. The reference range was not used to interpret this result as normal/abnormal. RBC (test code = 789-8) See_Comment L [Automated [employer]] The system which generated this result transmitted reference range: 3.93 - 5.25 10*6/?L. The reference range was not used to interpret this result as normal/abnormal. HGB (test code = 718-7) 12.3 g/dL 11.6-15 HCT (test code = 4544-3) 37.1 % 35.7-45.2 MCV (test code = 787-2) 95.1 fL 80.6-95.5 MCH (test code = 785-6) 31.5 pg 25.9-32.8 MCHC (test code = 786-4) 33.2 g/dL 31.6-35.1 RDW-SD (test code = 86924-6) 51.1 fL 39-49.9 H RDW-CV (test code = 788-0) 14.6 % 12-15.5 PLT (test code = 777-3) See_Comment [Automated [employer]] The system which generated this result transmitted reference range: 166 - 358 10*3/?L. The reference range was not used to interpret this result as normal/abnormal. MPV (test code = 92211-0) 9.5 fL 9.5-12.9 NRBC/100 WBC (test code = 3005882240) See_Comment [Automated me ssage] The system which generated this result transmitted reference range: 0.0 - 10.0 /100 WBCs. The reference range was not used to interpret this result as normal/abnormal. NRBC x10^3 (test code = 9619142022) <0.01 See_Comment [Automated messa ge] The system which generated this result transmitted reference range: 10*3/?L. The reference range was not used to interpret this result as normal/abnormal. GRAN MAT (NEUT) % (test code = 770-8) 75.4 % IMM GRAN % (test code = 5975008313) 0.70 % LYMPH % (test code = 736-9) 15.5 % MONO % (test code = 5905-5) 8.1 % EOS % (test code = 713-8) 0.2 % BASO % (test code = 706-2) 0.1 % GRAN MAT x10^3(ANC) (test code = 6140067533) 9.31 10*3/uL 1.88-7.09 H IMM GRAN x10^3 (test code = 2015274468) 0.09 10*3/uL 0-0.06 H LYMPH x10^3 (test code = 731-0) 1.91 10*3/uL 1.32-3.29 MONO x10^3 (test code = 742-7) 1.00 10*3/uL 0.33-0.92 H EOS x10^3 (test code = 711-2) <0.03 0.03-0.39 L BASO x10^3 (test code = 704-7) <0.03 0.01-0.07 Lab Interpretation (test code = 37885-4) Abnormal [facility] Metabolic Panel (NA, K, CL, CO2, GLUCOSE, BUN, CREATININE, CA)2020-02-01 11:42:00* Test Item Value Reference Range Interpretation Comme nts NA (test code = 8650410619) 139 mmol/L 135-145 K (test code = 9427179522) 4.4 mmol/L 3.5-5 CL (test code = 5335737780) 98 mmol/L 98-108 CO2 TOTAL (test code = 6155285138) 39 mmol/L 23-31 H AGAP (test code = 8467338294) 2-16 BUN (test code = 3003726447) 18 mg/dL 7-23 GLUCOSE (test code = 3765594679) 138 mg/dL 70-110 H CREATININE (test code = 9389412955) 0.47 mg/dL 0.5-1.04 L CALCIUM (test code = 6233430840) 9.3 mg/dL 8.6-10.6 eGFR Calculation (Non-) (test code = 0357484937) mL/min/1.73m2 eGFR Calculation () (test code = 5931649214) mL/min/1.73m2 DAO (test code = DAO) Association of Glomerular Filtration Rate (GFR) and Staging of Kidney Disease* + --+ --+ ------+| GFR (mL/min/1.73 m2) ?| With Kidney Damage ?| ?Without Kidney Damage+ --------+ --------+ +| ?>90 ?| ?Stage one ?| ? Normal ?+ ---+ ---+ -------+| ?60-89 ?| ?Stage two ?| ? Decreased GFR ? + --+ --+ ------+| ?30-59 ?| ?Stage three ?| ? Stage three ? + --+ --+ ------+| ?15-29 ?| ?Stage four ? | ? Stage four ?+ ---+ ---+ -------+| ?<15 (or dialysis) ? ?| ?Stage five ? | ? Stage five ?+ ---+ ---+ -------+ *Each stage assumes the associated GFR level has been in effect for at least three months. ?Stages 1 to 5, with or without kidney disease, indicate chronic kidney disease. Notes: Determination of stages one and two (with eGFR >59mL/min/1.73 m2) requires estimation of kidney damage for at least three months as defined by structural or functional abnormalities of the kidney, manifested by either:Pathological abnormalities or Markers of kidney damage (including abnormalities in the composition of the blood or urine or abnormalities in imaging tests). Lab Interpretation (test code = 95296-1) Abnormal [facility] WITH [id number] 11:29:00* Test Item Value Reference Range Interpretation Comme nts WBC (test code = 6690-2) See_Comment H [Automated message] The system which generated this result transmitted reference range: 4.30 - 11.10 10*3/?L. The reference range was not used to interpret this result as normal/abnormal. RBC (test code = 789-8) See_Comment [Automated message] The system which generated this result transmitted reference range: 3.93 - 5.25 10*6/?L. The reference range was not used to interpret this result as normal/abnormal. HGB (test code = 718-7) 12.8 g/dL 11.6-15 HCT (test code = 4544-3) 39.2 % 35.7-45.2 MCV (test code = 787-2) 97.3 fL 80.6-95.5 H MCH (test code = 785-6) 31.8 pg 25.9-32.8 MCHC (test code = 786-4) 32.7 g/dL 31.6-35.1 RDW-SD (test code = 37769-5) 52.6 fL 39-49.9 H RDW-CV (test code = 788-0) 14.6 % 12-15.5 PLT (test code = 777-3) See_Comment [Automated message] The system which generated this result transmitted reference range: 166 - 358 10*3/?L. The reference range was not used to interpret this result as normal/abnormal. MPV (test code = 93209-2) 9.1 fL 9.5-12.9 L NRBC/100 WBC (test code = 6352261370) See_Comment [Automated message] The system which generated this result transmitted reference range: 0.0 - 10.0 /100 WBCs. The reference range was not used to interpret this result as normal/abnormal. NRBC x10^3 (test code = 2131416954) <0.01 See_Comment [Automated message] The system which generated this result transmitted reference range: 10*3/?L. The reference range was not used to interpret this result as normal/abnormal. GRAN MAT (NEUT) % (test code = 770-8) 93.7 % IMM GRAN % (test code = 4999739807) 0.80 % LYMPH % (test code = 736-9) 3.8 % MONO % (test code = 5905-5) 1.6 % EOS % (test code = 713-8) 0.0 % BASO % (test code = 706-2) 0.1 % GRAN MAT x10^3(ANC) (test code = 0944146509) 10.46 10*3/uL 1.88-7.09 H IMM GRAN x10^3 (test code = 4401180424) 0.09 10*3/uL 0-0.06 H LYMPH x10^3 (test code = 731-0) 0.43 10*3/uL 1.32-3.29 L MONO x10^3 (test code = 742-7) 0.18 10*3/uL 0.33-0.92 L EOS x10^3 (test code = 711-2) <0.03 0.03-0.39 L BASO x10^3 (test code = 704-7) <0.03 0.01-0.07 Lab Interpretation (test code = 40675-0) [id number] 22:01:00* Test Item Value Reference Range Interpretation Comme nts NT-proBNP (test code = 9242180274) 532 pg/mL See_Comment H [Automated message] The system which generated this result transmitted reference range: <=125. The reference range was not used to interpret this result as normal/abnormal. DAO (test code = DAO) Biotin has been reported to cause a negative bias, interpret results relative to patient's use of biotin. Lab Interpretation (test code = 71546-9) [facility] [id number] 12:24:00 * Test Item Value Reference Range Interpretation Comme nts PH (test code = 2457077989) 7.32-7.42 PCO2 QUINCY (test code = 3402312674) See_Comment H [Automated messa ge] The system which generated this result transmitted reference range: 41 - 51 mmHg. The reference range was not used to interpret this result as normal/abnormal. PO2 QUINCY (test code = 9663618284) See_Comment H [Automated messa ge] The system which generated this result transmitted reference range: 25 - 40 mmHg. The reference range was not used to interpret this result as normal/abnormal. HCO3 QUINCY (test code = 0670477667) See_Comment H [Automated messa ge] The system which generated this result transmitted reference range: 24 - 28 mEq/L. The reference range was not used to interpret this result as normal/abnormal. AC VBE(BEAKER) (test code = 8668651323) mEq/L Lab Interpretation (test code = 94137-5) Abnormal [facility] WITH [id number] 11:51:00* Test Item Value Reference Range Interpretation Comme nts WBC (test code = 6690-2) See_Comment H [Automated message] The system which generated this result transmitted reference range: 4.30 - 11.10 10*3/?L. The reference range was not used to interpret this result as normal/abnormal. RBC (test code = 789-8) See_Comment [Automated message] The system which generated this result transmitted reference range: 3.93 - 5.25 10*6/?L. The reference range was not used to interpret this result as normal/abnormal. HGB (test code = 718-7) 12.7 g/dL 11.6-15 HCT (test code = 4544-3) 38.1 % 35.7-45.2 MCV (test code = 787-2) 95.7 fL 80.6-95.5 H MCH (test code = 785-6) 31.9 pg 25.9-32.8 MCHC (test code = 786-4) 33.3 g/dL 31.6-35.1 RDW-SD (test code = 99870-2) 50.6 fL 39-49.9 H RDW-CV (test code = 788-0) 14.3 % 12-15.5 PLT (test code = 777-3) See_Comment [Automated message] The system which generated this result transmitted reference range: 166 - 358 10*3/?L. The reference range was not used to interpret this result as normal/abnormal. MPV (test code = 76836-1) 9.4 fL 9.5-12.9 L NRBC/100 WBC (test code = 1572830856) See_Comment [Automated message] The system which generated this result transmitted reference range: 0.0 - 10.0 /100 WBCs. The reference range was not used to interpret this result as normal/abnormal. NRBC x10^3 (test code = 5777402625) <0.01 See_Comment [Automated message] The system which generated this result transmitted reference range: 10*3/?L. The reference range was not used to interpret this result as normal/abnormal. GRAN MAT (NEUT) % (test code = 770-8) 91.2 % IMM GRAN % (test code = 0235069149) 1.00 % LYMPH % (test code = 736-9) 3.1 % MONO % (test code = 5905-5) 4.6 % EOS % (test code = 713-8) 0.0 % BASO % (test code = 706-2) 0.1 % GRAN MAT x10^3(ANC) (test code = 6487864970) 18.95 10*3/uL 1.88-7.09 H IMM GRAN x10^3 (test code = 1325581433) 0.20 10*3/uL 0-0.06 H LYMPH x10^3 (test code = 731-0) 0.64 10*3/uL 1.32-3.29 L MONO x10^3 (test code = 742-7) 0.96 10*3/uL 0.33-0.92 H EOS x10^3 (test code = 711-2) <0.03 0.03-0.39 L BASO x10^3 (test code = 704-7) <0.03 0.01-0.07 Lab Interpretation (test code = 06273-2) Abnormal [facility] Metabolic Panel (NA, K, CL, CO2, GLUCOSE, BUN, CREATININE, CA)2020-01-31 11:32:00* Test Item Value Reference Range Interpretation Comme nts NA (test code = 8994441872) 139 mmol/L 135-145 K (test code = 5515143642) 4.1 mmol/L 3.5-5 CL (test code = 8029247567) 95 mmol/L 98-108 L CO2 TOTAL (test code = 8167927620) 39 mmol/L 23-31 H AGAP (test code = 5407354873) 2-16 BUN (test code = 6640342338) 18 mg/dL 7-23 GLUCOSE (test code = 6377595007) 126 mg/dL 70-110 H CREATININE (test code = 9041479511) 0.53 mg/dL 0.5-1.04 CALCIUM (test code = 4124715837) 9.6 mg/dL 8.6-10.6 eGFR Calculation (Non-) (test code = 2673253197) mL/min/1.73m2 eGFR Calculation () (test code = 6401970285) mL/min/1.73m2 DAO (test code = DAO) Association of Glomerular Filtration Rate (GFR) and Staging of Kidney Disease* + --+ --+ ------+| GFR (mL/min/1.73 m2) ?| With Kidney Damage ?| ?Without Kidney Damage+ --------+ --------+ +| ?>90 ?| ?Stage one ?| ? Normal ?+ ---+ ---+ -------+| ?60-89 ?| ?Stage two ?| ? Decreased GFR ? + --+ --+ ------+| ?30-59 ?| ?Stage three ?| ? Stage three ? + --+ --+ ------+| ?15-29 ?| ?Stage four ? | ? Stage four ?+ ---+ ---+ -------+| ?<15 (or dialysis) ? ?| ?Stage five ? | ? Stage five ?+ ---+ ---+ -------+ *Each stage assumes the associated GFR level has been in effect for at least three months. ?Stages 1 to 5, with or without kidney disease, indicate chronic kidney disease. Notes: Determination of stages one and two (with eGFR >59mL/min/1.73 m2) requires estimation of kidney damage for at least three months as defined by structural or functional abnormalities of the kidney, manifested by either:Pathological abnormalities or Markers of kidney damage (including abnormalities in the composition of the blood or urine or abnormalities in imaging tests). Lab Interpretation (test code = 47171-8) [facility] (ALB,T.PRO,BILI T,BU/BC,ALT,AST,ALK PHOS)2020-01-31 11:26:00* Test Item Value Reference Range Interpretation Comme nts TOTAL BILI (test code = 3106324941) 0.3 mg/dL 0.1-1.1 BILI UNCON (test code = 7799894928) 0.4 mg/dL 0.1-1.1 BILI CONJ (test code = 4542704393) 0.0 mg/dL 0-0.3 T PROTEIN (test code = 5585050252) 6.5 g/dL 6.3-8.2 ALBUMIN (test code = 3499809096) 4.0 g/dL 3.5-5 ALK PHOS (test code = 1119843381) 46 U/L 34-122 ALTv (test code = 1742-6) 40 U/L 5-35 H AST(SGOT) (test code = 9983232118) 42 U/L 13-40 H Lab Interpretation (test cod e = 50100-8) [facility]normal [facility] [id number] 20:41:00* Test Item Value Reference Range Interpretation Comme nts SPUTUM CULTURE (test code = 622-1) Specimen cellular elements do not represent lower respiratory tract. Specimen rejected for routine bacterial culture. Suggest reorder and recollection. Gram stain (test code = 664-3) Numerous Epithelial cells [facility] BY [id number] 14:09:00* Test Item Value Reference Range Interpretation Comme nts Adenovirus (test code = 58749-2) Negative Negative Coronavirus HKU1 (test code = 43814-2) Negative Negative Coronavirus NL63 (test code = 02383-0) Negative Negative Coronavirus 229E (test code = 61259-8) Negative Negative Coronavirus OC43 (test code = 35639-8) Negative Negative Human Metapneumovirus (test code = 57787-9) Negative Negative Human Rhinovirus/Enterovirus (test code = 23398-5) Negative Negative Influenza A (test code = 65819-8) Negative Negative Influenza B (test code = 48444-5) Negative Negative Parainfluenza Virus 1 (test code = 92923-6) Negative Negative Parainfluenza Virus 2 (test code = 44515-2) Negative Negative Parainfluenza Virus 3 (test code = 21251-1) Negative Negative Parainfluenza Virus 4 (test code = 52402-0) Negative Negative Respiratory Syncytial Virus (test code = 03213-5) Negative Negative Bordetella parapertussis (test code = 00189-6) Negative Negative Bordetella pertussis (test code = 94369-8) Negative Negative Chlamydia pneumoniae (test code = 46545-6) Negative Negative Mycoplasma pneumoniae (test code = 92299-7) Negative Negative DAO (test code = DAO) Negative:A negativ e result does not rule-out infection. ?This assay does not test for all potential infectious agents. ? Positive:A positive test result does not necessarily indicate the presence of viable organism. ? Lab Interpretation (test code = 12991-8) Normal [facility] WITH [id number] 14:05:00* Test Item Value Reference Range Interpretation Comme nts WBC (test code = 6690-2) See_Comment H [Automated message] The system which generated this result transmitted reference range: 4.30 - 11.10 10*3/?L. The reference range was not used to interpret this result as normal/abnormal. RBC (test code = 789-8) See_Comment [Automated message] The system which generated this result transmitted reference range: 3.93 - 5.25 10*6/?L. The reference range was not used to interpret this result as normal/abnormal. HGB (test code = 718-7) 13.1 g/dL 11.6-15 HCT (test code = 4544-3) 40.6 % 35.7-45.2 MCV (test code = 787-2) 97.1 fL 80.6-95.5 H MCH (test code = 785-6) 31.3 pg 25.9-32.8 MCHC (test code = 786-4) 32.3 g/dL 31.6-35.1 RDW-SD (test code = 91212-3) 51.1 fL 39-49.9 H RDW-CV (test code = 788-0) 14.2 % 12-15.5 PLT (test code = 777-3) See_Comment [Automated message] The system which generated this result transmitted reference range: 166 - 358 10*3/?L. The reference range was not used to interpret this result as normal/abnormal. MPV (test code = 97541-8) 9.7 fL 9.5-12.9 NRBC/100 WBC (test code = 7459726937) See_Comment [Automated message] The system which generated this result transmitted reference range: 0.0 - 10.0 /100 WBCs. The reference range was not used to interpret this result as normal/abnormal. NRBC x10^3 (test code = 5379697685) <0.01 See_Comment [Automated message] The system which generated this result transmitted reference range: 10*3/?L. The reference range was not used to interpret this result as normal/abnormal. GRAN MAT (NEUT) % (test code = 770-8) 94.0 % IMM GRAN % (test code = 1883698652) 1.00 % LYMPH % (test code = 736-9) 2.1 % MONO % (test code = 5905-5) 2.7 % EOS % (test code = 713-8) 0.0 % BASO % (test code = 706-2) 0.2 % GRAN MAT x10^3(ANC) (test code = 8596128124) 19.85 10*3/uL 1.88-7.09 H IMM GRAN x10^3 (test code = 6083323407) 0.21 10*3/uL 0-0.06 H LYMPH x10^3 (test code = 731-0) 0.44 10*3/uL 1.32-3.29 L MONO x10^3 (test code = 742-7) 0.58 10*3/uL 0.33-0.92 EOS x10^3 (test code = 711-2) <0.03 0.03-0.39 L BASO x10^3 (test code = 704-7) 0.04 10*3/uL 0.01-0.07 Lab Interpretation (test code = 31013-8) Abnormal [facility] Metabolic Panel (NA, K, CL, CO2, GLUCOSE, BUN, CREATININE, CA)2020-01-30 11:15:00* Test Item Value Reference Range Interpretation Comme nts NA (test code = 8273908329) 136 mmol/L 135-145 K (test code = 4588288251) 4.6 mmol/L 3.5-5 CL (test code = 7198668028) 94 mmol/L 98-108 L CO2 TOTAL (test code = 4243253063) 35 mmol/L 23-31 H AGAP (test code = 7032631206) 2-16 BUN (test code = 6639869058) 13 mg/dL 7-23 GLUCOSE (test code = 0646066161) 156 mg/dL 70-110 H CREATININE (test code = 7845986996) 0.43 mg/dL 0.5-1.04 L CALCIUM (test code = 3608202610) 9.3 mg/dL 8.6-10.6 eGFR Calculation (Non-) (test code = 7724475848) mL/min/1.73m2 eGFR Calculation () (test code = 6510429319) mL/min/1.73m2 DAO (test code = DAO) Association of Glomerular Filtration Rate (GFR) and Staging of Kidney Disease* + --+ --+ ------+| GFR (mL/min/1.73 m2) ?| With Kidney Damage ?| ?Without Kidney Damage+ --------+ --------+ +| ?>90 ?| ?Stage one ?| ? Normal ?+ ---+ ---+ -------+| ?60-89 ?| ?Stage two ?| ? Decreased GFR ? + --+ --+ ------+| ?30-59 ?| ?Stage three ?| ? Stage three ? + --+ --+ ------+| ?15-29 ?| ?Stage four ? | ? Stage four ?+ ---+ ---+ -------+| ?<15 (or dialysis) ? ?| ?Stage five ? | ? Stage five ?+ ---+ ---+ -------+ *Each stage assumes the associated GFR level has been in effect for at least three months. ?Stages 1 to 5, with or without kidney disease, indicate chronic kidney disease. Notes: Determination of stages one and two (with eGFR >59mL/min/1.73 m2) requires estimation of kidney damage for at least three months as defined by structural or functional abnormalities of the kidney, manifested by either:Pathological abnormalities or Markers of kidney damage (including abnormalities in the composition of the blood or urine or abnormalities in imaging tests). Lab Interpretation (test code = 64681-8) [facility]normal [facility] [id number] 10:42:00* Test Item Value Reference Range Interpretation Comme nts Legionella Urinary Antigen (test code = 6815349347) Negative Negative DAO (test code = DAO) Negative for L. pneumophilia serogroup I antigen in urine suggesting no recent or current infection. Infection due to Legionella cannot be ruled out since other serogroups and species may cause disease. Furthermore, antigens may not be present in urine during early stage of infection, or the level of antigen present in urine may be below the detection limit of the test. Lab Interpretation (test code = 96605-1) Normal [facility] [id number] 09:58:00 * Test Item Value Reference Range Interpretation Comme nts PH (test code = 0051047361) 7.32-7.42 PCO2 QUINCY (test code = 3665416626) See_Comment H [Automated messa ge] The system which generated this result transmitted reference range: 41 - 51 mmHg. The reference range was not used to interpret this result as normal/abnormal. PO2 QUINCY (test code = 7332242648) See_Comment [Automated messa ge] The system which generated this result transmitted reference range: 25 - 40 mmHg. The reference range was not used to interpret this result as normal/abnormal. HCO3 QUINCY (test code = 4051273171) See_Comment H [Automated messa ge] The system which generated this result transmitted reference range: 24 - 28 mEq/L. The reference range was not used to interpret this result as normal/abnormal. AC VBE(BEAKER) (test code = 5406332198) mEq/L Lab Interpretation (test code = 03146-6) [facility] 00:54:00* Test Item Value Reference Range Interpretation Comme nts FOLATE SER (test code = 0598707728) >20.0 3-20 H Biotin has been reported to cause a positive bias, interpret results relative to patient's use of biotin. Lab Interpretation (test code = 40442-8) [facility] [id number] 00:34:00* Test Item Value Reference Range Interpretation Comme nts VIT B12 (test code = 3886478330) 431 pg/mL 240-930 DAO (test code = DAO) Biotin has been reported to cause a positive bias, interpret results relative to patient's use of biotin. Lab Interpretation (test code = 35220-6) Normal [facility] [id number] 21:45:00* Test Item Value Reference Range Interpretation Comme nts FREE T3 (test code = 4695700245) 2.59 pg/mL 2.77-5.27 L Lab Interpretation (test cod e = 06711-5) Abnormal [facility] [id number] 21:45:00* Test Item Value Reference Range Interpretation Comme nts FREE T4 (test code = 4155394001) 0.78 ng/dL 0.78-2.2 Lab Interpretation (test cod e = 17851-5) [facility] + LACTIC ACID 2 [id number] 20:20:00* Test Item Value Reference Range Interpretation Comme nts PH (test code = 2) 7.35-7.45 L PCO2 (test code = 6300555474) See_Comment H [Automated messa ge] The system which generated this result transmitted reference range: 35 - 45 mmHg. The reference range was not used to interpret this result as normal/abnormal. PO2 (test code = 1154500510) See_Comment L [Automated messa ge] The system which generated this result transmitted reference range: 80 - 100 mmHg. The reference range was not used to interpret this result as normal/abnormal. HCO3 (test code = 9686260100) See_Comment H [Automated messa ge] The system which generated this result transmitted reference range: 22 - 26 mEq/L. The reference range was not used to interpret this result as normal/abnormal. BE (test code = 5685948353) See_Comment H [Automated messa ge] The system which generated this result transmitted reference range: -3.0 - 3.0 mEq/L. The reference range was not used to interpret this result as normal/abnormal. THB (test code = 7058079706) 14.5 g/dL 12-16 %O2HB (test code = 1597428448) 92.5 % 94-99 L %COHB ART (test code = 0971316425) 2.0 % 0-1.5 H %METHB ART (test code = 3620289995) 0.5 % 0.4-1.5 VOL%O2 ART (test code = 1958868035) 18.9 % 15-23 NA (test code = 8264030663) 133 mmol/L 135-145 L K+ (test code = 4768355597) 4.7 mmol/L 3.5-5 AC CA IONZ (test code = 7188108343) 4.70 mg/dL 4.5-5.3 GLUCOSE (test code = 0802662569) 249 mg/dL 70-110 H LACTIC ACID (test code = 5297412199) 1.17 mmol/L 0.5-2.2 Lab Interpretation (test code = 79268-5) [facility] [id number] 20:05:00* Test Item Value Reference Range Interpretation Comme nts TROPONIN I (test code = 4265524421) 0.013 ng/mL See_Comment [Automated message] The system which generated this result transmitted reference range: <=0.034. The reference range was not used to interpret this result as normal/abnormal. DAO (test code = DAO) Equal or Less than 0.034 ng/ml---Normal ?Note: Cardiac troponin begins to rise 3-4 hours after the onset of ischemia. Repeat in 4-6 hours if the sample was drawn within 3-4 hours of the onset of the symptom and found normal. Between 0.035 and 0.120 ng/mL--- Borderline. Questionable myocardial injury or necrosis ? ?Note: Serial measurement may be necessary to confirm or exclude the diagnosis of myocardial injury or necrosis; Clinical correlation (symptoms, EKGs, imaging studies, and others) required; Repeat in 4-6 hours if clinically indicated. ? Equal or Higher than 0.121 ng/mL---Abnormal. Myocardial Injury or Necrosis Likely ? Biotin has been reported to cause a negative bias, interpret results relative to patient's use of biotin. ? Lab Interpretation (test code = 55597-3) [facility] 20:04:00* Test Item Value Reference Range Interpretation Comme nts Procalcitonin (test code = 7583060132) 0.03 ng/mL <0.07 DAO (test code = DAO) INTERPRETATION OF PROCALCITONIN RESULTS IN ADULTS >= 18 YEARS OF AGE Initiation and discontinuation of antibiotics on patients with suspected or confirmed Lower Respiratory Tract Infection in Adults >= 18 years of age. + +-------- --------+ + -----+|Procalcitonin |Interpretation ?|Antibiotic ? ? |Considerations ? |ng/mL ? | ?|recommendation | ? + +-------- --------+ + -----+| <0.1 ? | Bacterial ? ? ?| Strongly ? ? ?| ? | ?| infection very | discouraged ? | Overruling: ? | ?| unlikely ? ? ? | ? | ? Clinically unstable ? ? ? + +-------- --------+ + ? High risk for adverse ? ? | <0.25 ?| Bacterial ? ? ?| Discouraged ? | ? outcome ? | ?| infection ? ? ?| ? | ? SEE IMPORTANT NOTE ?| ?| unlikely ? ? ? | ? | ? + +-------- --------+ + -----+| >=0.25 ? ? ? | Bacterial ? ? ?| Encouraged ? ?| ? | ?| infection ? ? ?| ? | ? | ?| likely ? | ? | Consider treatment failure ?+ +------- ---------+ -+ if levels does not decrease | >0.5 ? | Bacterial ? ? ?| Strongly ? ? ?| appropriately ? | ?| infection very | encouraged ? ?| ? | ?| likely ? | ? | ? + +-------- --------+ + -----+ Discontinuation of antibiotics in high-acuity patients with suspected or confirmed sepsis in Adults >= 18 years of age. + +-------- --------+ + -----+|Procalcitonin |Interpretation ?|Antibiotic ? ? |Considerations ? |ng/mL ? | ?|recommendation | ? + +-------- --------+ + -----+| <0.25 ?| Bacterial ? ? ?| Strongly ? ? ?| ? | ?| infection very | discouraged ? | Overruling: ? | ?| unlikely ? ? ? | ? | ? Clinically unstable ? ? ? + +-------- --------+ + ? High risk for adverse ? ? | <0.5 or drop | Bacterial ? ? ?| Discouraged ? | ? outcome ? | >80% from ? ?| infection ? ? ?| ? | ? SEE IMPORTANT NOTE ?| highest PCT ?| unlikely ? ? ? | ? | ? | level ?| ?| ? | ? + +-------- --------+ + -----+| >=0.5 ?| Bacterial ? ? ?| Encouraged ? ?| ? | ?| infection ? ? ?| ? | ? | ?| likely ? | ? | Consider treatment failure ?+ +------- ---------+ -+ if levels does not decrease | >1.0 ? | Bacterial ? ? ?| Strongly ? ? ?| appropriately ? | ?| infection very | encouraged ? ?| ? | ?| likely ? | ? | ? + +-------- --------+ + -----+ Percentage of drop of Procalcitonin calculation for Discontinuation of antibiotics in high-acuity patients with suspected or confirmed sepsis in Adults >= 18 years of age. ? Procalcitonin highest{}-Procalcitonin current{}Delta Procalcitonin = x100% ? Procalcitonin current {} IMPORTANT NOTE: Procalcitonin may be elevated without bacterial infection by physiologic stress related to trauma, ortiz, chronic dialysis, metastatic cancer, surgery in the past seven days, malaria, some fungal infections, and some forms of vasculitis. The interpretation algorithm may not apply to patients with immunosuppression (equivalent of >10 mg of prednisone daily), HIV with CD4 cell count < 350 cells/mm3, active malignancy on systemic chemotherapy, solid organ transplant or hematopoietic stem cell transplantation, or hospital acquired pneumonia. Additionally, some clinical trials of procalcitonin have excluded patients with shock requiring vasopressor use, acute respiratory failure requiring mechanical ventilation, or those with known lung abscess/empyema. For further information please refer to:[email or web address] Lab Interpretation (test code = 27294-1) [facility] [id number] 18:24:00 * Test Item Value Reference Range Interpretation Comme nts TSH (test code = 3349987869) See_Comment L Biotin has been reported to cause a negative bias, interpret results relative to patient's use of biotin. [Automated message] The system which generated this result transmitted reference range: 0.45 - 4.70 mIU/L. The reference range was not used to interpret this result as normal/abnormal. Lab Interpretation (test code = 00981-6) [facility]TR[facility] [id number] 14:42:00* Test Item Value Reference Range Interpretation Comme nts TROPONIN I (test code = 7156607097) 0.022 ng/mL See_Comment [Automated message] The system which generated this result transmitted reference range: <=0.034. The reference range was not used to interpret this result as normal/abnormal. DAO (test code = DAO) Equal or Less than 0.034 ng/ml---Normal ?Note: Cardiac troponin begins to rise 3-4 hours after the onset of ischemia. Repeat in 4-6 hours if the sample was drawn within 3-4 hours of the onset of the symptom and found normal. Between 0.035 and 0.120 ng/mL--- Borderline. Questionable myocardial injury or necrosis ? ?Note: Serial measurement may be necessary to confirm or exclude the diagnosis of myocardial injury or necrosis; Clinical correlation (symptoms, EKGs, imaging studies, and others) required; Repeat in 4-6 hours if clinically indicated. ? Equal or Higher than 0.121 ng/mL---Abnormal. Myocardial Injury or Necrosis Likely ? Biotin has been reported to cause a negative bias, interpret results relative to patient's use of biotin. ? Lab Interpretation (test code = 80267-5) Normal [facility] [id number] 14:39:00* Test Item Value Reference Range Interpretation Comme nts NT-proBNP (test code = 2551297370) 822 pg/mL See_Comment H [Automated message] The system which generated this result transmitted reference range: <=125. The reference range was not used to interpret this result as normal/abnormal. DAO (test code = DAO) Biotin has been reported to cause a negative bias, interpret results relative to patient's use of biotin. Lab Interpretation (test code = 17300-8) [facility]normal [facility] HospitalLIP[facility] PANEL (72153)(TOTAL CHOLESTEROL, TRIGLYCERIDES, HDL)2020-01-29 14:36:00* Test Item Value Reference Range Interpretation Comme nts CHOL (test code = 9925087927) 215 mg/dL 120-200 H HDL (test code = 5589767567) 122 mg/dL >50 HDLC RATIO (test code = 9920904939) See_Comment [Automated [employer]] The system which generated this result transmitted reference range: <=4.5. The reference range was not used to interpret this result as normal/abnormal. TRIG (test code = 6142132386) 61 mg/dL 30-170 LDL CHOL (test code = 29097-2) 81 mg/dL See_Comment [Automated [employer]] The system which generated this result transmitted reference range: <=160. The reference range was not used to interpret this result as normal/abnormal. VLDL (test code = 3680681285) 12 mg/dL 5-60 Lab Interpretation (test code = 77473-7) Abnormal [facility] CARE VENOUS BLOOD [id number] 14:01:00 * Test Item Value Reference Range Interpretation Comme nts PH (test code = 3440495344) 7.32-7.42 L PCO2 QUINCY (test code = 4144372504) See_Comment H [Automated messa ge] The system which generated this result transmitted reference range: 41 - 51 mmHg. The reference range was not used to interpret this result as normal/abnormal. PO2 QUINCY (test code = 9876206511) See_Comment HH [Automated messa ge] The system which generated this result transmitted reference range: 25 - 40 mmHg. The reference range was not used to interpret this result as normal/abnormal. HCO3 QUINCY (test code = 4503008540) See_Comment H [Automated messa ge] The system which generated this result transmitted reference range: 24 - 28 mEq/L. The reference range was not used to interpret this result as normal/abnormal. AC VBE(BEAKER) (test code = 1923894854) mEq/L Lab Interpretation (test code = 70688-0) [facility]normal [facility] HospitalGLYCOSYLATED HEMOGLOBIN (A1C)2020-01-29 13:53:00* Test Item Value Reference Range Interpretation Comments HGB A1C (test code = 4548-4) See_Comment [Automated message] The system which generated this result transmitted reference range: 4.0 - 6.0 % NGSP. The reference range was not used to interpret this result as normal/abnormal. DAO (test code = DAO) %A1C (NGSP) Interpretation (ADA)4.8-5.6 ? ? Normal or (Non-Diabetic Range)5.7-6.4 ? ? Increased Risk (Pre-Diabetic)>6.5 ?Diabetes Indicated Lab Interpretation (test code = 13859-2) Normal [facility] HospitalCREATINE [id number] 13:42:00* Test Item Value Reference Range Interpretation Comme nts CK (test code = 0180088671) 36 U/L 33-194 Lab Interpretation (test cod e = 63012-0) Normal [facility] HospitalXR CHEST 1 [id number] 12:53:35Mild pulmonary vascular congestion. Trace left pleural effusion. Emphysema. Preliminary Report Dictated by Resident: Von J Joceline I, Leonardo ?Lainez, MD., have reviewed this study and agree with the abovereport.EXAM: XR CHEST 1 VW HISTORY: SOB COMPARISON: Chest radiograph 10/05/2019 FINDINGS: The lungs are emphysematous. Mild pulmonary vascular congestion isidentified with trace left pleural effusi on. No pneumothorax. The heart is mildly enlarged. No acute bony abnormalities are noted. [facility], Radiant Results Inft User - 01/29/2020 7:54 AM CDTEXAM: XR CHEST 1 VWHISTORY: SOB COMPARISON: Chest radiograph 10/05/2019FINDINGS:The lungs are emphysematous. Mild pulmonary vascular congestion isidentified with trace left pleural effusion. No pneumothorax.The heart is mildly enlarged. No acute bony abnormalities are noted.IMPRESSIONMild pulmonary vascular congestion.Trace left pleural effusion.Emphysema.Preliminary Report Dictated by Resident: Von Reid, Leonardo Lainez MD., have reviewed thisstudy and agree with the abovereport.[facility] [id number] 10:59:00* Test Item Value Reference Range Interpretation Comme nts TROPONIN I (test code = 4433117958) 0.031 ng/mL See_Comment [Automated message] The system which generated this result transmitted reference range: <=0.034. The reference range was not used to interpret this result as normal/abnormal. DAO (test code = DAO) Equal or Less than 0.034 ng/ml---Normal ?Note: Cardiac troponin begins to rise 3-4 hours after the onset of ischemia. Repeat in 4-6 hours if the sample was drawn within 3-4 hours of the onset of the symptom and found normal. Between 0.035 and 0.120 ng/mL--- Borderline. Questionable myocardial injury or necrosis ? ?Note: Serial measurement may be necessary to confirm or exclude the diagnosis of myocardial injury or necrosis; Clinical correlation (symptoms, EKGs, imaging studies, and others) required; Repeat in 4-6 hours if clinically indicated. ? Equal or Higher than 0.121 ng/mL---Abnormal. Myocardial Injury or Necrosis Likely ? Biotin has been reported to cause a negative bias, interpret results relative to patient's use of biotin. ? Lab Interpretation (test code = 99237-2) Normal [facility]CORON[facility]IRUS COVID-19 [id number] 07:11:00* Test Item Value Reference Range Interpretation Comme nts SARS-CoV-2 (test code = 06079-9) Not Detected Not Detected DAO (test code = DAO) ID NOW COVID-19 As say is an isothermal nucleic acid amplification test intended for the qualitative detection of nucleic acid from SARS-CoV-2 viral RNA in nasopharyngeal (DIST[employer]PORTER) specimens. It is used under Emergency Use Authorization (EUA) by FDA. The limit of detection (LOD) of the assay is 125 Genome Equivalents/mL. A positive result is indicative of the presence of SARS-CoV-2 RNA. ?Clinical correlation with patient history and other diagnostic information is necessary to determine patient infection status. A negative (Not Detected) result does not preclude SARS-CoV-2 infection. Clinical correlation with patient history and other diagnostic information should be used in patient management decisions. Invalid: Please collect a new specimen for repeat patient testing if clinically indicated. Lab Interpretation (test code = 67104-6) Normal [facility] HospitalPROTHROMBIN TIME / [id number] 06:19:00* Test Item Value Reference Range Interpretation Comme nts PROTIME PATIENT (test code = 5964-2) See_Comment L [Automated messa ge] The system which generated this result transmitted reference range: 12.0 - 14.7 Seconds. The reference range was not used to interpret this result as normal/abnormal. INR (test code = 6301-6) Normal INR <1.1; Warfarin Therapeutic range 2.0 to 3.0 or 2.5 to 3.5, depending upon the indications. Lab Interpretation (test code = 37173-6) Abnormal [facility] HospitalTROPONIN [id number] 06:09:00* Test Item Value Reference Range Interpretation Comme nts TROPONIN I (test code = 2005224023) 0.037 ng/mL See_Comment H [Automated message] The system which generated this result transmitted reference range: <=0.034. The reference range was not used to interpret this result as normal/abnormal. DAO (test code = DAO) Equal or Less than 0.034 ng/ml---Normal ?Note: Cardiac troponin begins to rise 3-4 hours after the onset of ischemia. Repeat in 4-6 hours if the sample was drawn within 3-4 hours of the onset of the symptom and found normal. Between 0.035 and 0.120 ng/mL--- Borderline. Questionable myocardial injury or necrosis ? ?Note: Serial measurement may be necessary to confirm or exclude the diagnosis of myocardial injury or necrosis; Clinical correlation (symptoms, EKGs, imaging studies, and others) required; Repeat in 4-6 hours if clinically indicated. ? Equal or Higher than 0.121 ng/mL---Abnormal. Myocardial Injury or Necrosis Likely ? Biotin has been reported to cause a negative bias, interpret results relative to patient's use of biotin. ? Lab Interpretation (test code = 75196-2) Abnormal [facility] HospitalN-TERMINAL [id number] 06:06:00* Test Item Value Reference Range Interpretation Comme [facility] NT-proBNP (test code = 8211423447) 695 pg/mL See_Comment H [Automated message] The system which generated this result transmitted reference range: <=125. The reference range was not used to interpret this result as normal/abnormal. DAO (test code = DAO) Biotin has been reported to cause a negative bias, interpret results relative to patient's use of biotin. Lab Interpretation (test code = 79525-7) Abnormal [facility] HospitalaPTT2020-05-08 06:04:00* Test Item Value Reference Range Interpretation Comme [facility] APTT Patient (test code = 3173-2) See_Comment [Automated message] The system which generated this result transmitted reference range: 23 - 38 Seconds. The reference range was not used to interpret this result as normal/abnormal. DAO (test code = DAO) The [facility] patient population mean normal value for aPTT is 30 seconds. Lab Interpretation (test code = 81406-7) Normal [facility] HospitalCOMP. METABOLIC PANEL (96539)2020-01-29 05:59:00* Test Item Value Reference Range Interpretation Comme nts NA (test code = 5750111230) 133 mmol/L 135-145 L K (test code = 9134664909) 4.3 mmol/L 3.5-5 CL (test code = 8450741274) 91 mmol/L 98-108 L CO2 TOTAL (test code = 5338679698) 35 mmol/L 23-31 H AGAP (test code = 6917795676) 2-16 BUN (test code = 2493592787) 7 mg/dL 7-23 GLUCOSE (test code = 9752169600) 105 mg/dL 70-110 CREATININE (test code = 7512999008) 0.37 mg/dL 0.5-1.04 L TOTAL BILI (test code = 1931851266) 0.4 mg/dL 0.1-1.1 CALCIUM (test code = 8492259390) 8.8 mg/dL 8.6-10.6 T PROTEIN (test code = 5959487869) 7.3 g/dL 6.3-8.2 ALBUMIN (test code = 8608791917) 4.5 g/dL 3.5-5 ALK PHOS (test code = 0382653185) 62 U/L 34-122 ALTv (test code = 1742-6) 58 U/L 5-35 H AST(SGOT) (test code = 0525731545) 69 U/L 13-40 H eGFR Calculation (Non-) (test code = 1720854086) mL/min/1.73m2 eGFR Calculation () (test code = 2863302987) mL/min/1.73m2 DAO (test code = DAO) Association of Glomerular Filtration Rate (GFR) and Staging of Kidney Disease* + --+ --+ ------+| GFR (mL/min/1.73 m2) ?| With Kidney Damage ?| ?Without Kidney Damage+ --------+ --------+ +| ?>90 ?| ?Stage one ?| ? Normal ?+ ---+ ---+ -------+| ?60-89 ?| ?Stage two ?| ? Decreased GFR ? + --+ --+ ------+| ?30-59 ?| ?Stage three ?| ? Stage three ? + --+ --+ ------+| ?15-29 ?| ?Stage four ? | ? Stage four ?+ ---+ ---+ -------+| ?<15 (or dialysis) ? ?| ?Stage five ? | ? Stage five ?+ ---+ ---+ -------+ *Each stage assumes the associated GFR level has been in effect for at least three months. ?Stages 1 to 5, with or without kidney disease, indicate chronic kidney disease. Notes: Determination of stages one and two (with eGFR >59mL/min/1.73 m2) requires estimation of kidney damage for at least three months as defined by structural or functional abnormalities of the kidney, manifested by either:Pathological abnormalities or Markers of kidney damage (including abnormalities in the composition of the blood or urine or abnormalities in imaging tests). Lab Interpretation (test code = 84287-8) Abnormal [facility] HospitalLIPASE, [id number] 05:59:00* Test Item Value Reference Range Interpretation Comme nts LIPASE (test code = 1881024685) 33 U/L 0-220 Lab Interpretation (test cod e = 68425-5) Normal [facility] HospitalCB WITH [id number] 05:41:00* Test Item Value Reference Range Interpretation Comme nts WBC (test code = 6690-2) See_Comment [Automated [employer]] The system which generated this result transmitted reference range: 4.30 - 11.10 10*3/?L. The reference range was not used to interpret this result as normal/abnormal. RBC (test code = 789-8) See_Comment [[place]] The system which generated this result transmitted reference range: 3.93 - 5.25 10*6/?L. The reference range was not used to interpret this result as normal/abnormal. HGB (test code = 718-7) 14.2 g/dL 11.6-15 HCT (test code = 4544-3) 43.4 % 35.7-45.2 MCV (test code = 787-2) 96.7 fL 80.6-95.5 H MCH (test code = 785-6) 31.6 pg 25.9-32.8 MCHC (test code = 786-4) 32.7 g/dL 31.6-35.1 RDW-SD (test code = 05780-3) 50.6 fL 39-49.9 H RDW-CV (test code = 788-0) 14.3 % 12-15.5 PLT (test code = 777-3) See_Comment [Automated [employer]] The system which generated this result transmitted reference range: 166 - 358 10*3/?L. The reference range was not used to interpret this result as normal/abnormal. MPV (test code = 60921-1) 9.0 fL 9.5-12.9 L NRBC/100 WBC (test code = 3880570553) See_Comment [Automated [email or web address] ssage] The system which generated this result transmitted reference range: 0.0 - 10.0 /100 WBCs. The reference range was not used to interpret this result as normal/abnormal. NRBC x10^3 (test code = 4956502740) <0.01 See_Comment [Automated [employer]] The system which generated this result transmitted reference range: 10*3/?L. The reference range was not used to interpret this result as normal/abnormal. GRAN MAT (NEUT) % (test code = 770-8) 75.8 % IMM GRAN % (test code = 5505525782) 0.60 % LYMPH % (test code = 736-9) 15.7 % MONO % (test code = 5905-5) 6.5 % EOS % (test code = 713-8) 1.0 % BASO % (test code = 706-2) 0.4 % GRAN MAT x10^3(ANC) (test code = 9723841791) 7.99 10*3/uL 1.88-7.09 H IMM GRAN x10^3 (test code = 2294745111) 0.06 10*3/uL 0-0.06 LYMPH x10^3 (test code = 731-0) 1.65 10*3/uL 1.32-3.29 MONO x10^3 (test code = 742-7) 0.68 10*3/uL 0.33-0.92 EOS x10^3 (test code = 711-2) 0.10 10*3/uL 0.03-0.39 BASO x10^3 (test code = 704-7) 0.04 10*3/uL 0.01-0.07 Lab Interpretation (test code = 63761-2) [facility]PROCALCITONIN2020-01-14 16:51:00* Test Item Value Reference Range Interpretation Comme lilian Procalcitonin (test code = 7345549846) 0.04 ng/mL <0.07 DAO (test code = DAO) INTERPRETATION OF PROCALCITONIN RESULTS IN ADULTS >= 18 YEARS OF AGE Initiation and discontinuation of antibiotics on patients with suspected or confirmed Lower Respiratory Tract Infection in Adults >= 18 years of age. + +-------- --------+ + -----+|Procalcitonin |Interpretation ?|Antibiotic ? ? |Considerations ? |ng/mL ? | ?|recommendation | ? + +-------- --------+ + -----+| <0.1 ? | Bacterial ? ? ?| Strongly ? ? ?| ? | ?| infection very | discouraged ? | Overruling: ? | ?| unlikely ? ? ? | ? | ? Clinically unstable ? ? ? + +-------- --------+ + ? High risk for adverse ? ? | <0.25 ?| Bacterial ? ? ?| Discouraged ? | ? outcome ? | ?| infection ? ? ?| ? | ? SEE IMPORTANT NOTE ?| ?| unlikely ? ? ? | ? | ? + +-------- --------+ + -----+| >=0.25 ? ? ? | Bacterial ? ? ?| Encouraged ? ?| ? | ?| infection ? ? ?| ? | ? | ?| likely ? | ? | Consider treatment failure ?+ +------- ---------+ -+ if levels does not decrease | >0.5 ? | Bacterial ? ? ?| Strongly ? ? ?| appropriately ? | ?| infection very | encouraged ? ?| ? | ?| likely ? | ? | ? + +-------- --------+ + -----+ Discontinuation of antibiotics in high-acuity patients with suspected or confirmed sepsis in Adults >= 18 years of age. + +-------- --------+ + -----+|Procalcitonin |Interpretation ?|Antibiotic ? ? |Considerations ? |ng/mL ? | ?|recommendation | ? + +-------- --------+ + -----+| <0.25 ?| Bacterial ? ? ?| Strongly ? ? ?| ? | ?| infection very | discouraged ? | Overruling: ? | ?| unlikely ? ? ? | ? | ? Clinically unstable ? ? ? + +-------- --------+ + ? High risk for adverse ? ? | <0.5 or drop | Bacterial ? ? ?| Discouraged ? | ? outcome ? | >80% from ? ?| infection ? ? ?| ? | ? SEE IMPORTANT NOTE ?| highest PCT ?| unlikely ? ? ? | ? | ? | level ?| ?| ? | ? + +-------- --------+ + -----+| >=0.5 ?| Bacterial ? ? ?| Encouraged ? ?| ? | ?| infection ? ? ?| ? | ? | ?| likely ? | ? | Consider treatment failure ?+ +------- ---------+ -+ if levels does not decrease | >1.0 ? | Bacterial ? ? ?| Strongly ? ? ?| appropriately ? | ?| infection very | encouraged ? ?| ? | ?| likely ? | ? | ? + +-------- --------+ + -----+ Percentage of drop of Procalcitonin calculation for Discontinuation of antibiotics in high-acuity patients with suspected or confirmed sepsis in Adults >= 18 years of age. ? Procalcitonin highest{}-Procalcitonin current{}Delta Procalcitonin = x100% ? Procalcitonin current {} IMPORTANT NOTE: Procalcitonin may be elevated without bacterial infection by physiologic stress related to trauma, ortiz, chronic dialysis, metastatic cancer, surgery in the past seven days, malaria, some fungal infections, and some forms of vasculitis. The interpretation algorithm may not apply to patients with immunosuppression (equivalent of >10 mg of prednisone daily), HIV with CD4 cell count < 350 cells/mm3, active malignancy on systemic chemotherapy, solid organ transplant or hematopoietic stem cell transplantation, or hospital acquired pneumonia. Additionally, some clinical trials of procalcitonin have excluded patients with shock requiring vasopressor use, acute respiratory failure requiring mechanical ventilation, or those with known lung abscess/empyema. For further information please refer to:[email or web address] Lab Interpretation (test code = 37011-5) [facility] [id number] 14:16:00 * Test Item Value Reference Range Interpretation Comme nts TSH (test code = 3762255625) See_Comment Biotin has been reported to cause a negative bias, interpret results relative to patient's use of biotin. [Automated message] The system which generated this result transmitted reference range: 0.45 - 4.70 mIU/L. The reference range was not used to interpret this result as normal/abnormal. Lab Interpretation (test code = 17766-9) [facility] [id number] 11:18:00* Test Item Value Reference Range Interpretation Comme nts TROPONIN I (test code = 8230707502) 0.004 ng/mL See_Comment [Automated message] The system which generated this result transmitted reference range: <=0.034. The reference range was not used to interpret this result as normal/abnormal. DAO (test code = DAO) Equal or Less than 0.034 ng/ml---Normal ?Note: Cardiac troponin begins to rise 3-4 hours after the onset of ischemia. Repeat in 4-6 hours if the sample was drawn within 3-4 hours of the onset of the symptom and found normal. Between 0.035 and 0.120 ng/mL--- Borderline. Questionable myocardial injury or necrosis ? ?Note: Serial measurement may be necessary to confirm or exclude the diagnosis of myocardial injury or necrosis; Clinical correlation (symptoms, EKGs, imaging studies, and others) required; Repeat in 4-6 hours if clinically indicated. ? Equal or Higher than 0.121 ng/mL---Abnormal. Myocardial Injury or Necrosis Likely ? Biotin has been reported to cause a negative bias, interpret results relative to patient's use of biotin. ? Lab Interpretation (test code = 42722-2) [facility] [id number] 11:15:00* Test Item Value Reference Range Interpretation Comme nts NT-proBNP (test code = 7155501965) 294 pg/mL See_Comment H [Automated message] The system which generated this result transmitted reference range: <=125. The reference range was not used to interpret this result as normal/abnormal. DAO (test code = DAO) Biotin has been reported to cause a negative bias, interpret results relative to patient's use of biotin. Lab Interpretation (test code = 30715-3) [facility] 11:08:00* Test Item Value Reference Range Interpretation Comme nts MAGNESIUM (test code = 4695814873) 2.0 mg/dL 1.7-2.4 Lab Interpretation (test cod e = 42183-0) [facility]OS[facility]US2020-[facility] 11:08:00* Test Item Value Reference Range Interpretation Comme nts PHOSPHORUS (test code = 1261839561) 5.0 mg/dL 2.5-5 Lab Interpretation (test cod e = 47072-7) [facility] (NA, K, CL, CO2, GLUCOSE, BUN, CREATININE, CA)2019-10-06 11:08:00* Test Item Value Reference Range Interpretation Comme nts NA (test code = 3338444678) 138 mmol/L 135-145 K (test code = 4419994237) 4.4 mmol/L 3.5-5 CL (test code = 0032663039) 100 mmol/L 98-108 CO2 TOTAL (test code = 2300636586) 31 mmol/L 23-31 AGAP (test code = 7275241502) 2-16 BUN (test code = 2631200349) 18 mg/dL 7-23 GLUCOSE (test code = 6832200958) 184 mg/dL 70-110 H CREATININE (test code = 1136337213) 0.51 mg/dL 0.5-1.04 CALCIUM (test code = 6021104342) 8.9 mg/dL 8.6-10.6 eGFR Calculation (Non-) (test code = 7209063548) mL/min/1.73m2 eGFR Calculation () (test code = 7461501791) mL/min/1.73m2 DAO (test code = DAO) Association of Glomerular Filtration Rate (GFR) and Staging of Kidney Disease* + --+ --+ ------+| GFR (mL/min/1.73 m2) ?| With Kidney Damage ?| ?Without Kidney Damage+ --------+ --------+ +| ?>90 ?| ?Stage one ?| ? Normal ?+ ---+ ---+ -------+| ?60-89 ?| ?Stage two ?| ? Decreased GFR ? + --+ --+ ------+| ?30-59 ?| ?Stage three ?| ? Stage three ? + --+ --+ ------+| ?15-29 ?| ?Stage four ? | ? Stage four ?+ ---+ ---+ -------+| ?<15 (or dialysis) ? ?| ?Stage five ? | ? Stage five ?+ ---+ ---+ -------+ *Each stage assumes the associated GFR level has been in effect for at least three months. ?Stages 1 to 5, with or without kidney disease, indicate chronic kidney disease. Notes: Determination of stages one and two (with eGFR >59mL/min/1.73 m2) requires estimation of kidney damage for at least three months as defined by structural or functional abnormalities of the kidney, manifested by either:Pathological abnormalities or Markers of kidney damage (including abnormalities in the composition of the blood or urine or abnormalities in imaging tests). Lab Interpretation (test code = 76069-1) Abnormal [facility] WITH [id number] 10:47:00* Test Item Value Reference Range Interpretation Comme nts WBC (test code = 6690-2) See_Comment [Automated messa ge] The system which generated this result transmitted reference range: 4.30 - 11.10 10*3/?L. The reference range was not used to interpret this result as normal/abnormal. RBC (test code = 789-8) See_Comment [Automated messa ge] The system which generated this result transmitted reference range: 3.93 - 5.25 10*6/?L. The reference range was not used to interpret this result as normal/abnormal. HGB (test code = 718-7) 14.3 g/dL 11.6-15 HCT (test code = 4544-3) 42.8 % 35.7-45.2 MCV (test code = 787-2) 93.2 fL 80.6-95.5 MCH (test code = 785-6) 31.2 pg 25.9-32.8 MCHC (test code = 786-4) 33.4 g/dL 31.6-35.1 RDW-SD (test code = 69037-3) 47.4 fL 39-49.9 RDW-CV (test code = 788-0) 13.8 % 12-15.5 PLT (test code = 777-3) See_Comment [Automated [facility]] The system which generated this result transmitted reference range: 166 - 358 10*3/?L. The reference range was not used to interpret this result as normal/abnormal. MPV (test code = 98526-5) 9.6 fL 9.5-12.9 NRBC/100 WBC (test code = 9351460871) See_Comment [Automated [email or web address] ssage] The system which generated this result transmitted reference range: 0.0 - 10.0 /100 WBCs. The reference range was not used to interpret this result as normal/abnormal. NRBC x10^3 (test code = 1397569493) <0.01 See_Comment [Automated [facility]] The system which generated this result transmitted reference range: 10*3/?L. The reference range was not used to interpret this result as normal/abnormal. GRAN MAT (NEUT) % (test code = 770-8) 93.5 % IMM GRAN % (test code = 7936175283) 0.30 % LYMPH % (test code = 736-9) 5.4 % MONO % (test code = 5905-5) 0.7 % EOS % (test code = 713-8) 0.0 % BASO % (test code = 706-2) 0.1 % GRAN MAT x10^3(ANC) (test code = 9403357395) 6.95 10*3/uL 1.88-7.09 IMM GRAN x10^3 (test code = 9980477332) <0.03 0-0.06 LYMPH x10^3 (test code = 731-0) 0.40 10*3/uL 1.32-3.29 L MONO x10^3 (test code = 742-7) 0.05 10*3/uL 0.33-0.92 L EOS x10^3 (test code = 711-2) <0.03 0.03-0.39 L BASO x10^3 (test code = 704-7) <0.03 0.01-0.07 Lab Interpretation (test code = 58559-2) [facility]normal [facility] HospitalCritical [id number] 02:03:05Bianka Hernandez MD ? ? 10/05/2019 ?8:03 PMCritical CarePerformed by: Bianka Hernandez MDAuthorized by: Bianka Hernandez MD Critical care provider statement: ?Critical care time (minutes): ?30 ?Critical care was necessary to treat or prevent imminent or life-threatening deterioration of the following conditions: ?Respiratory failure ?Critical care was time spent personally by me on the following activities: ?Ordering and review of laboratory studies, ordering and review of radiographic studies, ordering and performing treatments and interventions, pulse oximetry, development of treatment plan with patient or surrogate, evaluation of patient's response to treatment and examination of patientUnWilson N. Jones Regional Medical CenterXR CHEST 1 [id number] 01:53:54 Emphysema without superimposed infiltrate or edema. RL: [id number]. Patient name: NABOR OBRIENB: 1955 64 years EXAMINATION: XR CHEST1 VW Ordering Physician: BIANKA HERNANDEZ CLINICAL HISTORY:dyspnea COMPARISON:None TECHNIQUE:Single frontal view of the chest was performed. FINDINGS:Increased lung volumes. No focal infiltrate or consolidation. No effusionor pneumothorax. Heart size is normal without edema. Normal aorticcontours. Noacute osseous abnormality. Postoperative clips noted along theright axilla and mediastinum. [facility], Radiant Results Inft User - 10/05/2019 7:55 PM CSTPatient name: NABOR OBRIENB: 1955 64 years EXAMINATION: XR CHEST 1 VWOrdering Physician: BIANKA HERNANDEZ CLINICAL HISTORY:dyspnea COMPARISON:NoneTECHNIQUE:Single frontal view of the chest was performed.FINDINGS:Increased lung volumes. No focal infiltrate or consolidation. No effusionor pneumothorax. Heart size is normal without edema. Normal aorticcontours. No acute osseous abnormality. Postoperative clips noted along theright axilla and mediastinum.IMPRESSIONEmphysema without superimposed infiltrate or edema.RL: [id number]. [facility] [id number] 01:51:00 * Test Item Value Reference Range Interpretation Comme nts TROPONIN I (test code = 8285246502) 0.008 ng/mL See_Comment [Automated message] The system which generated this result transmitted reference range: <=0.034. The reference range was not used to interpret this result as normal/abnormal. DAO (test code = DAO) Equal or Less than 0.034 ng/ml---Normal ?Note: Cardiac troponin begins to rise 3-4 hours after the onset of ischemia. Repeat in 4-6 hours if the sample was drawn within 3-4 hours of the onset of the symptom and found normal. Between 0.035 and 0.120 ng/mL--- Borderline. Questionable myocardial injury or necrosis ? ?Note: Serial measurement may be necessary to confirm or exclude the diagnosis of myocardial injury or necrosis; Clinical correlation (symptoms, EKGs, imaging studies, and others) required; Repeat in 4-6 hours if clinically indicated. ? Equal or Higher than 0.121 ng/mL---Abnormal. Myocardial Injury or Necrosis Likely ? Biotin has been reported to cause a negative bias, interpret results relative to patient's use of biotin. ? Lab Interpretation (test code = 72471-4) [facility]AL [id number] 01:48:00* Test Item Value Reference Range Interpretation Comme nts NT-proBNP (test code = 8201041041) 313 pg/mL See_Comment H [Automated message] The system which generated this result transmitted reference range: <=125. The reference range was not used to interpret this result as normal/abnormal. DAO (test code = DAO) Biotin has been reported to cause a negative bias, interpret results relative to patient's use of biotin. Lab Interpretation (test code = 17505-7) [facility]normal [facility] (NA, K, CL, CO2, GLUCOSE, BUN, CREATININE, CA)2019-10-06 01:40:00* Test Item Value Reference Range Interpretation Comme nts NA (test code = 2975490257) 139 mmol/L 135-145 K (test code = 2587637432) 3.9 mmol/L 3.5-5 CL (test code = 5745747546) 99 mmol/L 98-108 CO2 TOTAL (test code = 7192452468) 33 mmol/L 23-31 H AGAP (test code = 2494915568) 2-16 BUN (test code = 0643603017) 17 mg/dL 7-23 GLUCOSE (test code = 7832456080) 113 mg/dL 70-110 H CREATININE (test code = 1193567981) 0.62 mg/dL 0.5-1.04 CALCIUM (test code = 5272381480) 9.3 mg/dL 8.6-10.6 eGFR Calculation (Non-) (test code = 4112833367) mL/min/1.73m2 eGFR Calculation () (test code = 8135220502) mL/min/1.73m2 DAO (test code = DAO) Association of Glomerular Filtration Rate (GFR) and Staging of Kidney Disease* + --+ --+ ------+| GFR (mL/min/1.73 m2) ?| With Kidney Damage ?| ?Without Kidney Damage+ --------+ --------+ +| ?>90 ?| ?Stage one ?| ? Normal ?+ ---+ ---+ -------+| ?60-89 ?| ?Stage two ?| ? Decreased GFR ? + --+ --+ ------+| ?30-59 ?| ?Stage three ?| ? Stage three ? + --+ --+ ------+| ?15-29 ?| ?Stage four ? | ? Stage four ?+ ---+ ---+ -------+| ?<15 (or dialysis) ? ?| ?Stage five ? | ? Stage five ?+ ---+ ---+ -------+ *Each stage assumes the associated GFR level has been in effect for at least three months. ?Stages 1 to 5, with or without kidney disease, indicate chronic kidney disease. Notes: Determination of stages one and two (with eGFR >59mL/min/1.73 m2) requires estimation of kidney damage for at least three months as defined by structural or functional abnormalities of the kidney, manifested by either:Pathological abnormalities or Markers of kidney damage (including abnormalities in the composition of the blood or urine or abnormalities in imaging tests). Lab Interpretation (test code = 04757-3) Abnormal [facility] HospitalHep[facility] Function Panel (ALB, T.PRO, BILI T, BU/BC, ALT, AST, ALK PHOS)2019-10-06 01:40:00* Test Item Value Reference Range Interpretation Comme nts TOTAL BILI (test code = 0555002153) 0.6 mg/dL 0.1-1.1 BILI UNCON (test code = 7285235078) 0.3 mg/dL 0.1-1.1 BILI CONJ (test code = 5748193021) 0.0 mg/dL 0-0.3 T PROTEIN (test code = 8276591242) 7.7 g/dL 6.3-8.2 ALBUMIN (test code = 2215746341) 4.5 g/dL 3.5-5 ALK PHOS (test code = 7579557691) 63 U/L 34-122 ALTv (test code = 1742-6) 32 U/L 5-35 AST(SGOT) (test code = 6705164846) 44 U/L 13-40 H Lab Interpretation (test cod e = 47407-0) Abnormal [facility] HospitalaPTT2020-01-14 01:38:00* Test Item Value Reference Range Interpretation Comme [facility] APTT Patient (test code = 3173-2) See_Comment [Automated message] The system which generated this result transmitted reference range: 23 - 38 Seconds. The reference range was not used to interpret this result as normal/abnormal. DAO (test code = DAO) The [facility] patient population mean normal value for aPTT is 30 seconds. Lab Interpretation (test code = 57476-4) Normal [facility] HospitalProthrombin Time (PT) / [id number] 01:36:00 * Test Item Value Reference Range Interpretation Comme [facility] PROTIME PATIENT (test code = 5964-2) See_Comment [Automated [facility]] The system which generated this result transmitted reference range: 12.0 - 14.7 Seconds. The reference range was not used to interpret this result as normal/abnormal. INR (test code = 6301-6) Normal INR <1.1; Warfarin Therapeutic range 2.0 to 3.0 or 2.5 to 3.5, depending upon the indications. Lab Interpretation (test code = 88469-9) Normal [facility] HospitalCBC WITH [id number] 01:27:00* Test Item Value Reference Range Interpretation Comme [facility] WBC (test code = 6690-2) See_Comment H [Automated [facility]] The system which generated this result transmitted reference range: 4.30 - 11.10 10*3/?L. The reference range was not used to interpret this result as normal/abnormal. RBC (test code = 789-8) See_Comment [Automated [facility]] The system which generated this result transmitted reference range: 3.93 - 5.25 10*6/?L. The reference range was not used to interpret this result as normal/abnormal. HGB (test code = 718-7) 15.2 g/dL 11.6-15 H HCT (test code = 4544-3) 46.3 % 35.7-45.2 H MCV (test code = 787-2) 94.5 fL 80.6-95.5 MCH (test code = 785-6) 31.0 pg 25.9-32.8 MCHC (test code = 786-4) 32.8 g/dL 31.6-35.1 RDW-SD (test code = 37690-6) 47.5 fL 39-49.9 RDW-CV (test code = 788-0) 13.6 % 12-15.5 PLT (test code = 777-3) See_Comment [Automated messa ge] The system which generated this result transmitted reference range: 166 - 358 10*3/?L. The reference range was not used to interpret this result as normal/abnormal. MPV (test code = 25041-5) 9.5 fL 9.5-12.9 NRBC/100 WBC (test code = 1660912585) See_Comment [Automated [email or web address] ssage] The system which generated this result transmitted reference range: 0.0 - 10.0 /100 WBCs. The reference range was not used to interpret this result as normal/abnormal. NRBC x10^3 (test code = 4061765143) <0.01 See_Comment [Automated messa ge] The system which generated this result transmitted reference range: 10*3/?L. The reference range was not used to interpret this result as normal/abnormal. GRAN MAT (NEUT) % (test code = 770-8) 63.4 % IMM GRAN % (test code = 8961665960) 0.30 % LYMPH % (test code = 736-9) 25.1 % MONO % (test code = 5905-5) 9.7 % EOS % (test code = 713-8) 1.1 % BASO % (test code = 706-2) 0.4 % GRAN MAT x10^3(ANC) (test code = 3929444511) 7.30 10*3/uL 1.88-7.09 H IMM GRAN x10^3 (test code = 0197369675) 0.04 10*3/uL 0-0.06 LYMPH x10^3 (test code = 731-0) 2.90 10*3/uL 1.32-3.29 MONO x10^3 (test code = 742-7) 1.12 10*3/uL 0.33-0.92 H EOS x10^3 (test code = 711-2) 0.13 10*3/uL 0.03-0.39 BASO x10^3 (test code = 704-7) 0.05 10*3/uL 0.01-0.07 Lab Interpretation (test code = 08474-4) Abnormal [facility] HospitalLIPID PANEL (32156)(TOTAL CHOLESTEROL, TRIGLYCERIDES, HDL)2019-06-10 06:24:00* Test Item Value Reference Range Interpretation Comme nts CHOL (test code = 0453941481) 219 mg/dL 120-200 H HDL (test code = 1801409504) 135 mg/dL >50 HDLC RATIO (test code = 8662950672) See_Comment [Automated [employer]] The system which generated this result transmitted reference range: <=4.5. The reference range was not used to interpret this result as normal/abnormal. TRIG (test code = 7397615890) 48 mg/dL 30-170 LDL CHOL (test code = 37187-8) 74 mg/dL See_Comment [Automated [employer]] The system which generated this result transmitted reference range: <=160. The reference range was not used to interpret this result as normal/abnormal. VLDL (test code = 0900260540) 10 mg/dL 5-60 Lab Interpretation (test code = 52519-8) [facility]normal [facility] HospitalCOMP. METABOLIC PANEL (44060)2019-06-10 05:26:00* Test Item Value Reference Range Interpretation Comme nts NA (test code = 0068903711) 141 mmol/L 135-145 K (test code = 7719574497) 5.0 mmol/L 3.5-5 CL (test code = 0128587773) 98 mmol/L 98-108 CO2 TOTAL (test code = 1771136205) 37 mmol/L 23-31 H AGAP (test code = 5520825038) 2-16 BUN (test code = 9534143810) 14 mg/dL 7-23 GLUCOSE (test code = 5794886570) 118 mg/dL 70-110 H CREATININE (test code = 2769715633) 0.67 mg/dL 0.5-1.04 TOTAL BILI (test code = 0932192528) 0.6 mg/dL 0.1-1.1 CALCIUM (test code = 8999018758) 9.8 mg/dL 8.6-10.6 T PROTEIN (test code = 6250806446) 7.2 g/dL 6.3-8.2 ALBUMIN (test code = 8859325670) 4.3 g/dL 3.5-5 ALK PHOS (test code = 5627690096) 57 U/L 34-122 ALT(SGPT) (test code = 0416887237) 49 U/L 9-51 AST(SGOT) (test code = 0151450021) 47 U/L 13-40 H eGFR Calculation (Non-) (test code = 8308421277) mL/min/1.73m2 eGFR Calculation () (test code = 5838732537) mL/min/1.73m2 DAO (test code = DAO) Association of Glomerular Filtration Rate (GFR) and Staging of Kidney Disease*+ + + +| GFR (mL/min/1.73 m2)?| With Kidney Damage?|?Without Kidney Damage+ --------+ --------+ +|?>90?|?S tage one?|? Normal?+ ---------+ ---------+ +|?60-89? |?Stage two?|? Decreased GFR? + --+ --+ ------+|?30-59?|?Stage three?|? Stage three? + --+ --+ ------+|?15-29?|?Stage four? |? Stage four??+ --------+ --------+ +|?<15 (or dialysis)?|?Stage five? |? Stage five?+ -------+ -------+ +*Each stage assumes the associated GFR level has been in effect for at least three months.?Stages 1 to 5, with or without kidney disease, indicate chronic kidney disease.Notes: Determination of stages one and two (with eGFR >59mL/min/1.73 m2) requires estimation of kidney damage for at least three months as defined by structural or functional abnormalities of the kidney, manifested by either:Pathological abnormalities or Markers of kidney damage (including abnormalities in the composition of the blood or urine or abnormalities in imaging tests). Lab Interpretation (test code = 56853-5) Abnormal [facility] WITH [id number] 04:37:00* Test Item Value Reference Range Interpretation Comme nts WBC (test code = 6690-2) See_Comment [[employer]] The system which generated this result transmitted reference range: 4.30 - 11.10 10*3/?L. The reference range was not used to interpret this result as normal/abnormal. RBC (test code = 789-8) See_Comment [Automated messa ge] The system which generated this result transmitted reference range: 3.93 - 5.25 10*6/?L. The reference range was not used to interpret this result as normal/abnormal. HGB (test code = 718-7) 15.5 g/dL 11.6-15 H HCT (test code = 4544-3) 47.9 % 35.7-45.2 H MCV (test code = 787-2) 98.8 fL 80.6-95.5 H MCH (test code = 785-6) 32.0 pg 25.9-32.8 MCHC (test code = 786-4) 32.4 g/dL 31.6-35.1 RDW-SD (test code = 41701-7) 49.3 fL 39-49.9 RDW-CV (test code = 788-0) 13.5 % 12-15.5 PLT (test code = 777-3) See_Comment [Automated [facility] [facility]] The system which generated this result transmitted reference range: 166 - 358 10*3/?L. The reference range was not used to interpret this result as normal/abnormal. MPV (test code = 93851-7) 9.2 fL 9.5-12.9 L NRBC/100 WBC (test code = 4365717965) See_Comment [Automated [email or web address] ssage] The system which generated this result transmitted reference range: 0.0 - 10.0 /100 WBCs. The reference range was not used to interpret this result as normal/abnormal. NRBC x10^3 (test code = 9620633168) <0.01 See_Comment [Automated [facility] [facility]] The system which generated this result transmitted reference range: 10*3/?L. The reference range was not used to interpret this result as normal/abnormal. GRAN MAT (NEUT) % (test code = 770-8) 64.5 % IMM GRAN % (test code = 3431300197) 0.20 % LYMPH % (test code = 736-9) 22.8 % MONO % (test code = 5905-5) 11.0 % EOS % (test code = 713-8) 1.1 % BASO % (test code = 706-2) 0.4 % GRAN MAT x10^3(ANC) (test code = 2407884493) 5.89 10*3/uL 1.88-7.09 IMM GRAN x10^3 (test code = 0574672310) <0.03 0-0.06 LYMPH x10^3 (test code = 731-0) 2.08 10*3/uL 1.32-3.29 MONO x10^3 (test code = 742-7) 1.00 10*3/uL 0.33-0.92 H EOS x10^3 (test code = 711-2) 0.10 10*3/uL 0.03-0.39 BASO x10^3 (test code = 704-7) 0.04 10*3/uL 0.01-0.07 Lab Interpretation (test code = 58426-3) [facility]
[2023-09-27 19:08] LABS: Absolute Lymphocytes (CBC) 0.4 K/uL (0.7-4.9); Hematocrit 42.7 % (36.0-45.0); Lymphocytes % 3.2 % (15.3-44.8); MCV 95.2 fL (80-100); MPV 7.3 fL (7.6-11.3); Platelets 330 thou/uL (152-406); RBC Red Blood Cell Count 4.48 M/uL (3.86-4.86)
[2023-09-27 19:22] LABS: Bilirubin Total 0.4 mg/dL (0.2-1.0); Potassium 3.8 mEq/L (3.5-5.1)
[2023-09-27 19:23] LABS: Albumin 3.1 g/dL (3.4-5.0); Protein, Total 6.9 g/dL (6.4-8.2)
--- NOTE | 2023-09-27 20:16 | RAD REPORT ---
EXAM DESCRIPTION: CT - Abdomen Pelvis W Contrast - 09/27/2023 8:00 pm CLINICAL HISTORY: Abdominal pain COMPARISON: none. TECHNIQUE: Computed axial tomography of the abdomen pelvis was obtained. 100 cc Isovue-300 was admin istered intravenously. Oral contrast was not requested which limits evaluation of bowel and appendix All CT scans are performed using dose optimization technique as appropriate and may include automated exposure control or mA/KV adjustment according to patient size. FINDINGS: 2.4 centimeter peripherally enhancing lesion right lobe liver. 1.3 centimeter low to intermediate density lesion right lobe liver. Several additional tiny low-densi ty lesions. A small right renal cyst. Spleen, pancreas, adrenals and left kidney are unremarkable Fluid within nondilated large and small bowel. No adnexal mass Multiple gallstones. Gallbladder wall does not appear thickened. Avascular necrosis femoral heads Compression deformities involve several lumbar vertebral bodies. They have a more chronic than acute appearance IMPRESSION: 2.4 centimeter peripherally enhancing lesion right lobe liver may represent a hemangioma or cystic neoplasm. 1.3 centimeter low to intermediate density lesion right lobe liver may represent a benign complex cys t or neoplasm. Additional tiny low-density lesions the liver too small to characterize by CT criteria. Cholelithiasis Fluid within large and small bowel may represent an enteritis
[2023-09-27] MEDS ORDERED: ONDANSETRON 4 MG/2 ML VIAL ONE (20:38)
[2023-09-27] MEDS ORDERED: NA CHLORIDE 0.9% 500 ML ONE (20:38)
[2023-09-27 21:03] LABS: Blood Morphology Comment NOT SEEN (NOT SEEN); Platelet Estimate ADEQ; White Blood Cell Scan OK (OK)
[2023-09-27 22:07] LABS: Specific Gravity > 1.030 (1.005-1.030); Urine Bacteria None Seen /HPF (<20); Urine Bilirubin NEGATIVE (Negative); Urine Blood Negative (Negative); Urine Clarity Clear (Clear); Urine Color Yellow (Yellow); Urine Glucose NEGATIVE (Negative); Urine Mucus Slight /HPF (None Seen); Urine Protein TRACE (Negative); Urine RBC <5 /HPF (None Seen); Urine Urobilinogen Normal (Normal)
--- NOTE | 2023-09-27 22:12 | EDPHYS ---
Physician Documentation [facility] Name: Mariana Turner Age: 68 yrs Sex: Female : 1955 Arrival Date: 09/27/2023 Time: 17:46 Bed 7 Private MD: ED Physician Ronak Santos HPI: 09/27 21:55 This 68 yrs old Unknown Female presents to ER via EMS with complaints of kb Nausea/Vomiting/Diarrhea. 21:55 Patient is a 68-year-old female who was brought in by EMS for abdominal pain, vomiting, kb diarrhea that started last night. Patient denies fever. States she is currently on hospice for COPD. Patient lives with her daughter.. Historical: - Allergies: 18:14 PENICILLINS; ko1 - Home Meds: 18:14 Unable to obtain [Active]; ko1 - PMHx: 18:14 Anxiety; Cancer; CHF; COPD; ko1 - Immunization history:: Adult Immunizations unknown. - Social history:: Smoking status: Patient/guardian denies using tobacco, but has a distant history of tobacco abuse. ROS: 21:55 Constitutional: Negative for fever, chills, and weight loss, kb 21:55 Abdomen/GI: Positive for abdominal pain, nausea, vomiting, and diarrhea, 21:55 All other systems are negative, Exam: 21:55 Constitutional: This is a well developed, well nourished patient who is awake, alert, kb and in no acute distress. Head/Face: Normocephalic, atraumatic. ENT: Moist Mucous membranes Cardiovascular: Regular rate Respiratory: Respirations even and unlabored. No increased work of breathing. Talking in full sentences Skin: Warm, dry with normal turgor. Normal color. MS/ Extremity: Pulses equal, no cyanosis. Neurovascular intact. Full, normal range of motion. Neuro: Awake and alert, GCS 15, oriented to person, place, time, and situation. Moves all extremities. Normal gait. 21:55 Abdomen/GI: Inspection: abdomen appears normal, Bowel sounds: normal, Palpation: soft, in all quadrants, mild abdominal tenderness, in all quadrants, Vital Signs: 18:11 BP 137 / 89; Pulse 94; Resp 19; Temp 97; Pulse Ox 98% on 5 lpm NC; ko1 18:43 BP 129 / 91; Pulse 92; Resp 16; Pulse Ox 95% on 5 lpm NC; ko1 19:30 BP 142 / 87; Pulse 98; Resp 16 S; Pulse Ox 100% on 3 lpm NC; jw7 20:30 BP 113 / 66; Pulse 102; Resp 16 S; Pulse Ox 100% on 3 lpm NC; jw7 21:56 BP 134 / 78; Pulse 90; Resp 15 S; Pulse Ox 100% on 3 lpm NC; jw7 23:24 BP 118 / 72; Pulse 96; Resp 14 S; Pulse Ox 99% on 3 lpm NC; jw7 MDM: 17:49 Patient medically screened. kb 21:55 Differential diagnosis: Nonspecific abd pain, diverticulitis, viral gastroenteritis. kb Data reviewed: vital signs, nurses notes. 21:56 Historians other than the Patient: EMS: [facility]. kb 21:56 ED course: Discussed serum labs, CT scan with patient. Educated on lesions on the kb liver, patient states she is aware of those from previous imaging.. 22:21 Management of patient was discussed with the following: Hospitalist: Dr Frederick accepts pt for admission. ED course: Pt and daughter educated on diagnostic findings and that pt could be discharged home. Pt states she does not want to go home because she would just soil herself again. Daughter states she threw away the pt's bed so she wouldn't have anywhere to sleep except the floor. Daughter spoke to the hospice nurse and was told they would order pt a bed tomorrow. . 09/27 17:56 Order name: CBC with Diff; Complete Time: 21:04 kb 09/27 17:56 Order name: CMP; Complete Time: 19:26 kb 09/27 17:56 Order name: Lipase; Complete Time: 19:26 kb 09/27 17:56 Order name: Urinalysis w/ reflexes; Complete Time: 22:11 kb 09/27 21:03 Order name: CBC Smear Scan; Complete Time: 21:04 EDMS 09/27 23:26 Order name: Basic Metabolic Panel EDMS 09/27 23:26 Order name: Basic Metabolic Panel EDMS 09/27 23:26 Order name: CBC with Automated Diff EDMS 09/27 23:26 Order name: CBC with Automated Diff EDMS 09/27 23:26 Order name: Magnesium EDMS 09/27 23:26 Order name: Magnesium EDMS 09/27 23:26 Order name: Phosphorus EDMS 09/27 23:26 Order name: Phosphorus EDPR 09/27 17:56 Order name: CT Abd/Pelvis - IV Contrast Only; Complete Time: 20:23 kb 09/27 23:26 Order name: Social Service Consult EDPR 09/27 17:56 Order name: IV Saline Lock; Complete Time: 18:44 kb 09/27 17:56 Order name: Labs collected and sent; Complete Time: 18:44 kb 09/27 21:29 Order name: Straight Cath - Urine; Complete Time: 21:54 kb Administered Medications: 20:49 Drug: Ondansetron IVP 4 mg IVP once; over 2 minutes Route: IVP; Site: right antecubital;jw7 22:47 Follow up: Response: No adverse reaction jw7 20:49 Drug: NS 0.9% IV 500 ml IV at bolus once Route: IV; Rate: bolus; Site: right jw7 antecubital; 22:47 Follow up: Response: No adverse reaction; IV Status: Completed infusion; IV Intake: jw7 500ml Disposition Summary: 09/27/23 22:30 Hospitalization Ordered Notes: Hospitalization Status: Observation kb Provider: William Frederick Location: Telemetry/MedSurg (observation)(09/27/23 22:30) kb Condition: Stable(09/27/23 22:30) kb Problem: new kb Symptoms: are unchanged kb Bed/Room Type: Standard Room Assignment: [facility](09/27/23 23:15) Diagnosis - Enteritis kb Forms: - Medication Reconciliation Form kb - SBAR form kb - Leadership Thank You Letter kb Addendum: 09/30/2023 08:15 I was immediately available on-site in the Emergency Department for consultation in the m s3 care of the patient. Signatures: Dispatcher [employer] [facility] Galilea Seymour, FURNITURE SHAMPOOER-C FURNITURE SHAMPOOER-Erika Spears, RN RN Ronak Acevedo DO DO ms3 Omaira Burden RN RN jw7 Domonique Rao RN RN ko1 Corrections: (The following items were deleted from the chart) 09/27 18:15 18:14 PMHx: Cancer; ko1 ko1 22:29 22:11 Counseling: I had a detailed discussion with the patient and/or guardian kb regarding the historical points, exam findings, and any diagnostic results supporting the discharge/admit diagnosis, lab results, radiology results, the need for outpatient follow up, a family practitioner, to return to the emergency department if symptoms worsen or persist or if there are any questions or concerns that arise at home, kb 22:29 22:12 Home kb kb 22:29 22:12 Stable kb kb 22:29 22:12 Enteritis kb kb 23:15 22:30 kb kl
--- NOTE | 2023-09-27 22:12 | ER ---
Nurse's Notes [facility] Name: Mariana Turner Age: 68 yrs Sex: Female : 1955 Arrival Date: 09/27/2023 Time: 17:46 Bed 7 Private MD: Diagnosis: Enteritis Presentation: 09/27 18:11 Chief complaint: EMS states: patient is on hospice, family called and said patient had ko1 n/v/d last night and today. She was incontinent which is unusual for her so they called ems. Coronavirus screen: At this time, the client does not indicate any symptoms associated with coronavirus-19. Ebola Screen: No symptoms or risks identified at this time. Initial Sepsis Screen: Does the patient meet any 2 criteria? No. Patient's initial sepsis screen is negative. Does the patient have a suspected source of infection? No. Patient's initial sepsis screen is negative. Risk Assessment: Do you want to hurt yourself or someone else? Patient reports no desire to harm self or others. Onset of symptoms was September 27, 2023. 18:11 Method Of Arrival: EMS: [facility] ko1 18:11 Acuity: ANDRADE 3 ko1 Triage Assessment: 18:14 General: Appears in no apparent distress. uncomfortable, Behavior is calm, cooperative, ko1 appropriate for age. Pain: Complains of pain in abdomen. GI: Reports diarrhea, incontinence, nausea, vomiting. Historical: - Allergies: 18:14 PENICILLINS; ko1 - Home Meds: 18:14 Unable to obtain [Active]; ko1 - PMHx: 18:14 Anxiety; Cancer; CHF; COPD; ko1 - Immunization history:: Adult Immunizations unknown. - Social history:: Smoking status: Patient/guardian denies using tobacco, but has a distant history of tobacco abuse. Screenin:43 [facility] ED Fall Risk Assessment (Adult) History of falling in the last 3 months, ko1 including since admission No falls in past 3 months (0 pts) Confusion or Disorientation No (0 pts) Intoxicated or Sedated No (0 pts) Impaired Gait Yes (1 pt) Mobility Assist Device Used Yes (1 pt) Altered Elimination Yes (1 pt) Score/Fall Risk Level 3 or more points = High Risk Oriented to surroundings, Maintained a safe environment, Educated pt \T\ family on fall prevention, incl call for assistance when getting out of bed, Assessed \T\ reinforced patient's understanding of fall precautions, Provided non-skid footwear, Hourly rounding (assess needs \T\ fall precautionary measures) done, Used ambulatory aids as needed (educated on \T\ assisted with), Used gait belt as appropriate Implemented a Fall Risk Plan of Care, Remained w/in arm's length of patient and in sight while toileting, Offered frequent toileting (1:1 observation), Remained with patient while ambulating, Utilized family, sitter, or virtual recreational vehicle repairer as indicated. Abuse screen: Denies threats or abuse. Denies injuries from another. Nutritional screening: No deficits noted. Tuberculosis screening: No symptoms or risk factors identified. Assessment: 18:43 Neuro: No deficits noted. Cardiovascular: No deficits noted. Respiratory: patient on ko1 oxygen at home 5l/min. GI: Stools are reported to be diarrhea. : Reports incontinence. EENT: No deficits noted. Derm: No deficits noted. Musculoskeletal: No deficits noted. 19:30 Reassessment: Patient appears in no apparent distress at this time. No changes from jw7 previously documented assessment. Patient and/or family updated on plan of care and expected duration. Pain level reassessed. Patient is alert, oriented x 3, equal unlabored respirations, skin warm/dry/pink. 20:31 Reassessment: Patient appears in no apparent distress at this time. No changes from jw7 previously documented assessment. Patient and/or family updated on plan of care and expected duration. Pain level reassessed. Patient is alert, oriented x 3, equal unlabored respirations, skin warm/dry/pink. 20:54 General: Daughter: Inocencio Turner [phone]. jw7 21:30 Reassessment: Patient appears in no apparent distress at this time. No changes from jw7 previously documented assessment. Patient and/or family updated on plan of care and expected duration. Pain level reassessed. Patient is alert, oriented x 3, equal unlabored respirations, skin warm/dry/pink. 22:00 General: Called pt's daughter Inocencio to update her on the plan of care. jw7 22:30 Reassessment: Patient appears in no apparent distress at this time. No changes from jw7 previously documented assessment. Patient and/or family updated on plan of care and expected duration. Pain level reassessed. Patient is alert, oriented x 3, equal unlabored respirations, skin warm/dry/pink. 23:22 Reassessment: Patient appears in no apparent distress at this time. No changes from jw7 previously documented assessment. Patient and/or family updated on plan of care and expected duration. Pain level reassessed. Patient is alert, oriented x 3, equal unlabored respirations, skin warm/dry/pink. Vital Signs: 18:11 BP 137 / 89; Pulse 94; Resp 19; Temp 97; Pulse Ox 98% on 5 lpm NC; ko1 18:43 BP 129 / 91; Pulse 92; Resp 16; Pulse Ox 95% on 5 lpm NC; ko1 19:30 BP 142 / 87; Pulse 98; Resp 16 S; Pulse Ox 100% on 3 lpm NC; jw7 20:30 BP 113 / 66; Pulse 102; Resp 16 S; Pulse Ox 100% on 3 lpm NC; jw7 21:56 BP 134 / 78; Pulse 90; Resp 15 S; Pulse Ox 100% on 3 lpm NC; jw7 23:24 BP 118 / 72; Pulse 96; Resp 14 S; Pulse Ox 99% on 3 lpm NC; jw7 ED Course: 17:47 Patient arrived in ED. ra3 17:49 Galilea Seymour FNP-C [facility]. kb 17:49 Ronak Santos DO is Attending Physician. kb 18:08 Domonique Rao, KURT is Primary Nurse. ko1 18:14 Triage completed. ko1 18:14 Arm band placed on right wrist. Patient placed in an exam room, on a stretcher, on ko1 oxygen, on phototypesetting equipment monitor, on pulse oximetry, Patient notified of wait time. 18:43 Patient has correct armband on for positive identification. Placed in gown. Bed in low ko1 position. Call light in reach. Side rails up X2. Pulse ox on. NIBP on. Door closed. Noise minimized. Lights dimmed. Warm blanket given. 18:44 Initial lab(s) drawn, by me, sent to lab. Inserted saline lock: 22 gauge in right aa5 antecubital area, using aseptic technique. Blood collected. 20:01 CT Abd/Pelvis - IV Contrast Only In Process Unspecified. EDMS 21:55 Straight cath inserted, using sterile technique, 16 Fr. Specimen obtained. Returned jw7 kevan urine. Patient tolerated well. 22:30 William Frederick is Hospitalizing Provider. kb 22:42 No provider procedures requiring assistance completed. Patient admitted, IV remains in jw7 place. 22:43 Provided Education on: need for admit. jw7 Administered Medications: 20:49 Drug: Ondansetron IVP 4 mg IVP once; over 2 minutes Route: IVP; Site: right antecubital;jw7 22:47 Follow up: Response: No adverse reaction jw7 20:49 Drug: NS 0.9% IV 500 ml IV at bolus once Route: IV; Rate: bolus; Site: right jw7 antecubital; 22:47 Follow up: Response: No adverse reaction; IV Status: Completed infusion; IV Intake: jw7 500ml Medication: 22:43 VIS not applicable for this client. jw7 Intake: 22:47 IV: 500ml; Total: 500ml. jw7 Outcome: 22:12 Discharge ordered by MD. kb 22:30 Decision to Hospitalize by Provider. kb 23:20 Admitted to Med/surg accompanied by christina, via stretchvivian arcos 23:20 Condition: stable 23:20 Instructed on the need for admit, Demonstrated understanding of instructions, 23:51 Admitted to Med/surg Report called to KURT Delatorre tl4 09/28 00:24 Patient left the ED. jw7 Signatures: Dispatcher [employer] [facility] Galilea Seymour, WASTE CHOPPER-C WASTE CHOPPER-Myla Sarabia RN RN aa5 Omaira Burden RN RN jw7 Domonique Rao RN RN ko1 Todd Martinez4 Eleanor Cobb ra3 Corrections: (The following items were deleted from the chart) 09/27 18:15 18:14 PMHx: Cancer; ko1 ko1
[2023-09-27] MEDS ORDERED: ACETAMINOPHEN 325 MG TABLET PO PRN (23:11)
[2023-09-27] MEDS ORDERED: ALBUTEROL 2.5 MG/3 ML NEB SOL NEB PRN (23:11)
--- NOTE | 2023-09-27 23:30 | P.HP ---
Certification for Inpatient Patient admitted to: Observation With expected LOS: <2 Midnights Practitioner: I am a practitioner with admitting privileges, knowledge of patient current condition, hospital course, and medical plan of care. Services: Services provided to patient in accordance with Admission requirements found in Title 42 Section 412.3 of the Code of Federal Regulations Patient History Date of Service: 09/27/23 Reason for admission: Diarrhea and vomiting History of Present Illness: 68-year-old woman with a history of end-stage COPD, chronic respiratory failure on hospice brought to the emergency department due to episodes of diarrhea and vomiting stool incontinence. Family revoked hospice and brought the patient to the emergency department for medical attention. According to report patient was soiled with feces on arrival. Her respiratory status is at baseline on 3 L oxygen by nasal cannula. Blood work shows mild leukocytosis. Abdomen and pelvis demonstrated multiple cystic lesions in the liver suspicious for malignancy and fluid-filled small and large bowel. Per report, patient is on hospice for terminal COPD. She is hospitalized for further management. Allergies Penicillins Allergy (Verified 03/12/20 06:12) Rash Home Medications: Bupropion *Xl* [Wellbutrin XL*] 1 tab PO DAILY 03/08/20 Calcium Carbonate/Vitamin D3 [Calcium 500-Vit D3 10 Mcg Chew] 1 tab PO DAILY 03/08/20 Ipratropium [place] 1 inh IH Q6H PRN 03/08/20 Levalbuterol [Xopenex*] 1 inh IH Q6H PRN 03/08/20 Sodium Chloride For Inhalation [Hyper-Cristian] 3 ml IH Q6H PRN 03/08/20 Fluticasone/Umeclidin/Vilanter [Trelegy Ellipta 100-62.5-25] 1 each IH DAILY 30 Days #30 blst.w.dev 03/09/20 Nicotine [Nicoderm*] 21 mg TD DAILY #30 patch.td24 03/10/20 acetaZOLAMIDE [Diamox*] 250 mg PO DAILY #30 tab 03/10/20 Albuterol Sulfate [Proair Hfa] 1 inh IH TID PRN 03/22/20 ALPRAZolam [Xanax] 0.5 mg PO TID PRN #15 tab 03/24/20 Azithromycin Tab [Zithromax*] 250 mg PO DAILY #30 tab 07/02/20 Theophylline [Jeff-Dur*] 200 mg PO BID #120 tab 03/24/20 predniSONE [Deltasone*] 10 mg PO DAILY #30 tab 03/24/20 - Past Medical/Surgical History Diabetic: No -: COPD -: Hypertension -: CHF likely diastolic -: Depression with anxiety -: Tobacco abuse -: Alcohol abuse -: hx. of breat ca -: Right mastectomy -: back surgery Psychosocial/ Personal History: Patient lives at home alone, patient does have home health - Family History Mother -: Cancer Notes: breast Father -: Lung disease Notes: asbestosis - Social History Alcohol use: Yes CD- Drugs: No Caffeine use: Yes Review of Systems Other: Patient denies any fever, denies any abdominal pain. He denies any shortness of breath. Except as documented, all other systems reviewed and negative. Physical Examination - Studies Laboratory Data (last 24 hrs) 09/27/23 09/27/23 18:44 18:44 WBC 13.00 H Hgb 13.9 Hct 42.7 Plt Count 330 Sodium 142 Potassium 3.8 BUN 23 H Creatinine 0.97 Glucose 119 H Total Bilirubin 0.4 AST 13 L ALT 14 Alkaline Phosphatase 50 Lipase 29 Assessment and Plan - Problems (Diagnosis) (1) Enterocolitis Current Visit: Yes Status: Acute (2) Advanced chronic obstructive pulmonary disease Current Visit: Yes Status: Acute (3) Chronic respiratory failure with hypoxia Current Visit: Yes Status: Acute - Plan Admit patient to the medical floor Start IV Cipro and Flagyl for enteritis Hydrate with IV normal saline Patient has plans to go back on hospice once her diarrhea has been treated. Service consult for hospice arrangement Bronchodilators for COPD Validates, reconcile and continue other home medications. - Advance Directives Does patient have a Living Will: No Does patient have a Durable POA for Healthcare: No
[2023-09-28] MEDS: IPRATROPIUM BROM 0.5MG/2.5ML NEB SCH ×4 (00:47→19:40)
[2023-09-28 01:25] VITALS: BMI 21.2
[2023-09-28] MEDS: METRONIDAZOLE 500mg IVPB 500 MG/100 ML BAG IV SCH ×3 (01:28→16:44)
[2023-09-28] MEDS ORDERED: NA CHLORIDE 0.9% 250 ML ONE (02:08)
[2023-09-28 02:30] LABS: Absolute Lymphocytes (CBC) 0.6 K/uL (0.7-4.9); Hematocrit 39.5 % (36.0-45.0); Lymphocytes % 5.6 % (15.3-44.8); MPV 7.2 fL (7.6-11.3); Platelets 293 thou/uL (152-406); RBC Red Blood Cell Count 4.16 M/uL (3.86-4.86)
[2023-09-28 02:49] LABS: Phosphorus 2.8 mg/dL (2.5-4.9); Potassium 3.7 mEq/L (3.5-5.1)
[2023-09-28] MEDS: ENOXAPARIN 40 MG/0.4 ML SQ SCH (09:08)
[2023-09-28] MEDS: CIPROFLOXACIN 400mg IV 400 MG/200 ML BAG IV SCH ×2 (09:08→20:38)
--- NOTE | 2023-09-28 10:41 | P.PN ---
Subjective Date of Service: 09/28/23 Chief Complaint: Diarrhea and vomiting Pt is resting comfortably in bed. She appear lethargic. Pt is tolerating iv cipro and flagyl for enterocolitis. No other complaints Review of Systems Unremarkable General: Unremarkable Eyes: Unremarkable ENT: Unremarkable Respiratory: Unremarkable Cardiovascular: Unremarkable Gastrointestinal: Unremarkable Genitourinary: Unremarkable Musculoskeletal: Unremarkable Integumentary: Unremarkable Neurological: Confusion Lymphatics: Unremarkable Physical Examination - Vital Signs Temperature: 98 F Blood Pressure: 147/87 Pulse: 91 Respirations: 16 Pulse Ox (%): 97 - Studies Laboratory Data (last 24 hrs) 09/27/23 09/27/23 18:44 18:44 WBC 13.00 H Hgb 13.9 Hct 42.7 Plt Count 330 Sodium 142 Potassium 3.8 BUN 23 H Creatinine 0.97 Glucose 119 H Total Bilirubin 0.4 AST 13 L ALT 14 Alkaline Phosphatase 50 Lipase 29 Assessment And Plan - Plan Enterocolitis: Will continue IVF, cipro and flagyl. Will follow up blood cx. Hx of COPD: Will continue oxygen and prn duoneb Acute resp failure with hypoxia: It is chronic. Will continue treatment listed above. DVT ppx: heparin Dispo: Will dc pt back to hospice care.
[2023-09-28] MEDS: ONDANSETRON 4 MG/2 ML VIAL IV PRN (10:52)
[2023-09-28] MEDS: NA CHLORIDE 0.9% 1,000 ML IV SCH ×3 (15:12→19:45)
[2023-09-29] MEDS: METRONIDAZOLE 500mg IVPB 500 MG/100 ML BAG IV SCH ×3 (01:00→16:26)
[2023-09-29] MEDS: ONDANSETRON 4 MG/2 ML VIAL IV PRN (01:48)
[2023-09-29] MEDS: IPRATROPIUM BROM 0.5MG/2.5ML NEB SCH ×4 (02:10→19:41)
[2023-09-29 04:18] LABS: Absolute Lymphocytes (CBC) 1.3 K/uL (0.7-4.9); Hematocrit 35.5 % (36.0-45.0); Lymphocytes % 13.7 % (15.3-44.8); MCV 94.2 fL (80-100); MPV 7.7 fL (7.6-11.3); Platelets 287 thou/uL (152-406); RBC Red Blood Cell Count 3.77 M/uL (3.86-4.86)
[2023-09-29 04:37] LABS: Potassium 2.7 mEq/L (3.5-5.1)
[2023-09-29] MEDS: NA CHLORIDE 0.9% 1,000 ML IV SCH ×3 (05:45→15:38)
[2023-09-29] MEDS ORDERED: POTASSIUM CL SA 10 MEQ TAB PO ONE ×2 (07:24→21:00)
[2023-09-29] MEDS ORDERED: KCL 20 MEQ/100 mL IVPB 20 MEQ/100 ML BAG IV ONE (08:00)
[2023-09-29] MEDS ORDERED: POTASSIUM CL SA 10 MEQ TAB PO SCH ×2 (09:00)
[2023-09-29] MEDS: ENOXAPARIN 40 MG/0.4 ML SQ SCH (09:09)
[2023-09-29] MEDS: POTASSIUM CL SA 10 MEQ TAB PO SCH ×3 (09:09→16:26)
[2023-09-29] MEDS: CIPROFLOXACIN 400mg IV 400 MG/200 ML BAG IV SCH ×2 (09:10→20:05)
--- NOTE | 2023-09-29 10:43 | P.PN ---
Subjective Date of Service: 09/29/23 Chief Complaint: Diarrhea and vomiting Pt is resting comfortably in bed. She complains of diarrhea x2 this am. Her hospital bed was delivered yesterday. Pt is tolerating iv cipro and flagyl for enterocolitis. No other complaints Review of Systems Unremarkable General: Unremarkable Eyes: Unremarkable ENT: Unremarkable Respiratory: Unremarkable Cardiovascular: Unremarkable Gastrointestinal: Diarrhea Genitourinary: Unremarkable Musculoskeletal: Unremarkable Integumentary: Unremarkable Neurological: Unremarkable Lymphatics: Unremarkable Physical Examination - Vital Signs Temperature: 98.4 F Blood Pressure: 170/88 Pulse: 78 Respirations: 16 Pulse Ox (%): 99 - Physical Exam General: Alert, In no apparent distress, Oriented x3 HEENT: Atraumatic, Normocephalic Neck: Supple, 2+ carotid pulse no bruit Respiratory: Clear to auscultation bilaterally, Normal air movement Cardiovascular: No edema, Normal pulses, Regular rate/rhythm, Normal S1 S2 Capillary refill: <2 Seconds Gastrointestinal: Normal bowel sounds, Soft and benign, Non-distended Musculoskeletal: No clubbing, No swelling Integumentary: No rashes, No breakdown Neurological: Normal speech, Normal strength at 5/5 x4 extr, Sensation intact Lymphatics: No axilla or inguinal lymphadenopathy Assessment And Plan - Plan Enterocolitis: Will continue IVF, cipro and flagyl. Will follow up blood cx. Pt had diaarhea x 2 this am. Hypokalemia: K is 2.7. She refused IV KCL. Will replace with po KCL. Don check Mag level. Anxiety: prn xanax Hx of COPD: Will continue oxygen and prn duoneb Acute resp failure with hypoxia: It is chronic. Will continue treatment listed above. Htn; Will continue metoprolol DVT ppx: heparin Dispo: Will dc pt back to hospice care
[2023-09-29] MEDS: NICOTINE 21 MG/PAT TD SCH (10:52)
[2023-09-29] MEDS: METOPROLOL XL 25 MG TAB PO SCH (10:52)
[2023-09-29] MEDS: BUPROPION HCL XL 150 MG TAB PO SCH (10:52)
[2023-09-29] MEDS: THEOPHYLLINE SR 100 MG TAB PO SCH ×2 (11:00→20:05)
[2023-09-29] MEDS ORDERED: POTASSIUM CL 40 MEQ in NA CHLORIDE 0.9% 500 ML IV ONE (11:00)
[2023-09-29] MEDS: ALPRAZOLAM 0.5 MG TABLET PO PRN (16:26)
[2023-09-30] MEDS: METRONIDAZOLE 500mg IVPB 500 MG/100 ML BAG IV SCH ×3 (00:28→18:00)
[2023-09-30] MEDS: IPRATROPIUM BROM 0.5MG/2.5ML NEB SCH ×4 (01:32→20:43)
[2023-09-30] MEDS: NA CHLORIDE 0.9% 1,000 ML IV SCH ×5 (01:45→23:01)
[2023-09-30 03:32] LABS: Absolute Lymphocytes (CBC) 1.8 K/uL (0.7-4.9); Hematocrit 33.9 % (36.0-45.0); MCV 93.7 fL (80-100); MPV 7.6 fL (7.6-11.3); Platelets 304 thou/uL (152-406); RBC Red Blood Cell Count 3.62 M/uL (3.86-4.86)
[2023-09-30 03:41] LABS: Potassium 3.9 mEq/L (3.5-5.1)
--- NOTE | 2023-09-30 06:22 | P.PN ---
Date of Service: 09/30/23 Subjective: Physical Exam: Vitals: reviewed GEN: Alert, oriented, NAD HEENT: Normal conjunctiva, sclera anicteric CV: Regular rate & rhythm, no edema Pulm: Nonlabored respiraitons, clear bilaterally ABD: Soft, nontender, nondistended MSK: No joint tenderness Integumentary: No rashes Neuro: Normal speech, normal affect Problem List: Enterocolitis Hypokalemia Anxiety Acute on chronic respiratory failure with hypoxia h/o of COPD Hypertension Plan: Enterocolitis Diarrhea CT abdomen (09/27): Fluid within large and small bowel may represent an enteritis 2.4 cm peripherally enhancing lesion right lobe liver may represent a hemangioma or cystic neoplasm. 1.3 cm low to intermediate density lesion right lobe liver may represent a benign complex cyst or neoplasm. Additional tiny low-density lesions the liver too small to characterize by CT criteria Continue empiric cipro / flagyl Continue IV fluids check for c.diff Hypokalemia K is 2.7. She refused IV KCL. Will replace with po KCL. Don check Mag level. Anxiety xanax PRN Acute on chronic respiratory failure with hypoxia h/o of COPD continue oxygen and prn duonebs Hypertension continue metoprolol DVT ppx: lovenox Dispo: Will dc pt back to hospice care
[2023-09-30 08:06] LABS: Magnesium 1.7 mg/dL (1.6-2.4)
[2023-09-30 08:08] LABS: Phosphorus 0.9 mg/dL (2.5-4.9)
[2023-09-30] MEDS ORDERED: POTASSIUM CL SA 10 MEQ TAB PO ONE (09:00)
[2023-09-30] MEDS ORDERED: POTASSIUM PHOS 30 MM in NA CHLORIDE 0.9% 500 ML IV ONE (09:00)
[2023-09-30] MEDS: THEOPHYLLINE SR 100 MG TAB PO SCH ×2 (09:00→21:00)
[2023-09-30] MEDS: ENOXAPARIN 40 MG/0.4 ML SQ SCH (09:11)
[2023-09-30] MEDS: METOPROLOL XL 25 MG TAB PO SCH (09:12)
[2023-09-30] MEDS: BUPROPION HCL XL 150 MG TAB PO SCH (09:12)
[2023-09-30] MEDS: NICOTINE 21 MG/PAT TD SCH (09:12)
[2023-09-30] MEDS: CIPROFLOXACIN 400mg IV 400 MG/200 ML BAG IV SCH ×2 (09:13→22:14)
[2023-09-30] MEDS: ALPRAZOLAM 0.5 MG TABLET PO PRN (15:21)
[2023-09-30] MEDS ORDERED: MAGNESIUM SULFATE 1 gm IVPB 1 GM/100 ML BAG IV ONE (17:37)
[2023-10-01] MEDS: METRONIDAZOLE 500mg IVPB 500 MG/100 ML BAG IV SCH ×2 (01:12→08:54)
[2023-10-01] MEDS: IPRATROPIUM BROM 0.5MG/2.5ML NEB SCH ×2 (02:27→08:17)
[2023-10-01 03:08] LABS: Potassium 3.6 mEq/L (3.5-5.1)
[2023-10-01 06:08] LABS: Magnesium 2.1 mg/dL (1.6-2.4)
[2023-10-01] MEDS: BUPROPION HCL XL 150 MG TAB PO SCH (08:53)
[2023-10-01] MEDS: ENOXAPARIN 40 MG/0.4 ML SQ SCH (08:53)
[2023-10-01] MEDS: METOPROLOL XL 25 MG TAB PO SCH (08:53)
[2023-10-01] MEDS: CIPROFLOXACIN 400mg IV 400 MG/200 ML BAG IV SCH (08:54)
[2023-10-01] MEDS: NICOTINE 21 MG/PAT TD SCH (08:54)
[2023-10-01] MEDS ORDERED: POTASSIUM CL SA 10 MEQ TAB PO ONE (09:00)
[2023-10-01 09:06] VITALS: O2SAT 100
[2023-10-01] MEDS: ALPRAZOLAM 0.5 MG TABLET PO PRN (09:09)
[2023-10-01] MEDS: THEOPHYLLINE SR 100 MG TAB PO SCH (10:41)
[2023-10-01 12:27] VITALS: BP 142/78; TEMP 98
== END 2023-10-01 13:04 | disposition hospice, home (50) | DRG 391 ==
LOC: ER 17:46 → 2ND 23:08 → OBSVTOIN 09-30 12:58
PROVIDERS: ADMIT Internal Medicine; ATTEND Hospitalist
DX: K52.9 Noninfective gastroenteritis and colitis, unspecified (principal); J96.21 Acute and chronic respiratory failure with hypoxia; J44.1 Chronic obstructive pulmonary disease with (acute) exacerbation; I50.32 Chronic diastolic (congestive) heart failure; Z88.0 Allergy status to penicillin; I11.0 Hypertensive heart disease with heart failure; Z72.0 Tobacco use; F10.10 Alcohol abuse, uncomplicated; Z85.3 Personal history of malignant neoplasm of breast; Z99.81 Dependence on supplemental oxygen; Z90.10 Acquired absence of unspecified breast and nipple; E87.6 Hypokalemia
CPT/HCPCS: 36415; 51702; 74177; 80048; 80053; 81001; 83690; 83735; 84100; 84132; 85025; 94640; 94760; 96361; 96374; 99285; G0378; J0744; J1650; J2405; J3475; J3480; J7030; J7040; J7050; J7613; J7644; Q9967

== ENCOUNTER 2024-12-16 12:59 | Emergency (ER) | payer OTHER ==
--- OUTSIDE RECORDS SUMMARY | 2024-12-16 13:01 | XMS REPORT | Clinical Summary ---
Author Name Unknown Organization [facility] Address [address] [place] [address] Care Team Providers Care Medical Chief Technician Name Role Phone Yasemin Dietrich Unavailable [phone] Social History Tobacco Use Types Packs/Day Years Used Date Smoking Tobacco: Never Assessed Comments Unknown Sex and Gender Information Value Date Recorded Sex Assigned at Not on file Legal Sex Female 4:04 PM CDT Gender Identity Not on file Sexual Orientation Not on file Plan of Treatment Not on file Insurance MEDICARE PART A AND B MEDICARE PART A AND B MEDICARE PART A AND B Care Teams Medical Chief Technician Relationship Specialty Start Date End Date Yasemin Dietrich [email or web address] PCP - External Referring Family Practice 06/15/19
[2024-12-16] MEDS ORDERED: LIDOCAINE 1% MPF 5 ML VIAL ONE (13:33)
--- NOTE | 2024-12-16 13:53 | EDPHYS ---
Physician Documentation [facility] Name: Mariana Turner Age: 69 yrs Sex: Female : 1955 Arrival Date: 12/16/2024 Time: 12:59 Bed 2 Private MD: ED Physician Connor Dhillon HPI: 12/16 13:48 This 69 yrs old Female presents to ER via EMS with complaints of Head Injury-Adult. 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 Pt rolled out of bed and hit head per EMS. Pt has end stage COPD, on hospice with a DNR in place. EMS states pt was sent for laceration repair only. Pt is at baseline neurologically, minimally responsive. . Historical: - Allergies: 13:27 PENICILLINS; ph - PMHx: 13:27 Anxiety; Cancer; CHF; COPD; ph - Immunization history:: Adult Immunizations unknown. - Infectious Disease History:: Denies. - Social history:: Smoking status: unknown. ROS: 13:48 Constitutional: As per HPI kb Exam: 13:48 ENT: Moist Mucous membranes Respiratory: Respirations even and unlabored. No kb increased work of breathing. 13:48 Constitutional: The patient appears in no acute distress, well developed, 13:48 Head/face: Noted is no obvious of injury or deformity except a laceration(s), that is superficial, 4 cm(s), of the left side of forehead, 13:48 Cardiovascular: Rate: tachycardic, 13:48 Abdomen/GI: Palpation: abdomen is soft and non-tender, 13:48 Neuro: Exam negative for acute changes, Vital Signs: 13:24 BP 141 / 70; Pulse 105; Resp 24; Pulse Ox 95% on 6 lpm Non-rebreather mask; ph 14:30 BP 138 / 67; Pulse 100; Resp 18; Pulse Ox 98% on 6 lpm NC; ph 15:29 BP 138 / 86; Pulse 99; Resp 16; Temp 97.4; Pulse Ox 98% on 6 lpm NC; ph Laceration: 13:52 Wound Repair of 4cm ( 1.6in ) subcutaneous laceration to left side of forehead. kb Irregularly shaped.. Distal neuro/vascular/tendon intact. Anesthesia: Local anesthetic administered with 3 mls of 1% lidocaine. Wound prep: Extensive cleansing with hibiclenz by me, Wound irrigation with saline by me. Skin closed with 7 5-0 fast aborbing gut using simple sutures and sterile technique. Patient tolerated well. MDM: 13:06 Medical Screening Exam initiated 13:14 Data reviewed: vital signs, nurses notes. Management of patient was discussed with the kb following: Stella Mack (sister/POA). Discussed CT scan and laceration repair. POA requests laceration repair, but no imaging, including CT, or other interventions. Pt is on hospice and "close to the end of her life" (sister). Discussed possibility of brain injury from fall. POA states they would not want any intervention done if there was a brain injury. . Historians other than the Patient: EMS: [facility]. 13:51 Differential diagnosis: superficial laceration, tendon injury, vascular injury. Test kb considered but Not performed: CT: ct head considered but family does not want testing done . External Records Reviewed: Outpatient record: Medical record from [facility] reviewed. . Counseling: I had a detailed discussion with the patient and/or guardian regarding the historical points, exam findings, and any diagnostic results supporting the discharge/admit diagnosis, the need for outpatient follow up, a family practitioner, to return to the emergency department if symptoms worsen or persist or if there are any questions or concerns that arise at home. 12/16 13:07 Order name: Dressing - Wound; Complete Time: 13:43 kb 12/16 13:07 Order name: Gloves, Sterile; Complete Time: 13:43 kb 12/16 13:07 Order name: Prolene, Sutures; Complete Time: 13:43 kb 12/16 13:07 Order name: Setup Suture Tray; Complete Time: 13:43 kb Administered Medications: 13:43 Drug: Lidocaine Infiltration (1 %) 1 vials 5 ml Infiltration once; to bedside Volume: 5 ph ml; Route: Infiltration; 15:30 Follow up: Response: No adverse reaction ph Disposition Summary: 12/16/24 13:53 Discharge Ordered Notes: Location: Home Condition: Stable kb Diagnosis - Laceration without foreign body of other part of head - left forehead kb Followup: kb - With: Emergency Department - When: As needed - Reason: Worsening of condition Followup: kb - With: Private Physician - When: 2 - 3 days - Reason: Recheck today's complaints, Continuance of care, Re-evaluation by your physician Discharge Instructions: - Discharge Summary Sheet kb - Laceration Care, Adult, [id number] kb Forms: - Medication Reconciliation Form kb - Antibiotic Education kb - Prescription Opioid Use kb - Patient Portal Instructions kb - Leadership Thank You Letter kb Signatures: Galilea Seymour FNP-C FNP-Naima Severino RN RN ph Corrections: (The following items were deleted from the chart) 13:27 13:27 PMHx: Cancer; ph ph 13:27 13:27 PMHx: Cancer; ph ph 13:52 13:52 Wound Repair of 4cm ( 1.6in ) subcutaneous laceration to left side of forehead. kb Irregularly shaped.. Distal neuro/vascular/tendon intact. Anesthesia: Local anesthetic administered with 3 mls of 1% lidocaine. Skin closed with 7 5-0 fast aborbing gut using simple sutures and sterile technique. Patient tolerated well. kb
--- NOTE | 2024-12-16 13:53 | ER ---
Nurse's Notes [facility] Name: Mariana Turner Age: 69 yrs Sex: Female : 1955 Arrival Date: 12/16/2024 Time: 12:59 Bed 2 Private MD: Diagnosis: Laceration without foreign body of other part of head-left forehead Presentation: 12/16 13:24 Chief complaint: EMS states: Pt from [facility], fell and has head laceration, no LOC, ph pt on hospice for end stage COPD, family only wants sutures placed, no other interventions. Coronavirus screen: Vaccine status: Patient reports being unvaccinated. Ebola Screen: No symptoms or risks identified at this time. Initial Sepsis Screen: Does the patient meet any 2 criteria? No. Patient's initial sepsis screen is negative. Does the patient have a suspected source of infection?. Risk Assessment: Do you want to hurt yourself or someone else? Patient reports no desire to harm self or others. Onset of symptoms was December 16, 2024. 13:24 Method Of Arrival: EMS: [facility] ph 13:24 Acuity: ANDRADE 4 ph Historical: - Allergies: 13:27 PENICILLINS; ph - PMHx: 13:27 Anxiety; Cancer; CHF; COPD; ph - Immunization history:: Adult Immunizations unknown. - Infectious Disease History:: Denies. - Social history:: Smoking status: unknown. Screenin:49 [facility] ED Fall Risk Assessment (Adult) History of falling in the last 3 months, ph including since admission Yes- single mechanical fall (1 pt) Confusion or Disorientation Yes (5 pts) Intoxicated or Sedated Yes (3 pts) Impaired Gait No (0 pts) Mobility Assist Device Used Yes (1 pt) Altered Elimination Yes (1 pt) Score/Fall Risk Level 3 or more points = High Risk Oriented to surroundings, Maintained a safe environment, Hourly rounding (assess needs \T\ fall precautionary measures) done, Used ambulatory aids as needed (educated on \T\ assisted with). Abuse screen: Denies threats or abuse. Denies injuries from another. Nutritional screening: No deficits noted. Tuberculosis screening: No symptoms or risk factors identified. Assessment: 13:30 General: Appears in no apparent distress. comfortable, Behavior is calm, drowsy, quiet. ph Pain: Denies pain. Neuro: Level of Consciousness is awake, alert, obeys commands, Oriented to person, place, time, situation. Cardiovascular: Capillary refill < 3 seconds in bilateral fingers Patient's skin is warm and dry. Respiratory: Airway is patent Respiratory effort is even, unlabored, Respiratory pattern is regular, symmetrical. Derm: Skin is pink, warm \T\ dry. Injury Description: Laceration sustained to left side of forehead is full thickness, 2.6 to 7.5 cm long, not bleeding. 13:46 Reassessment: Report given to Sharri at [facility], awaiting EMS for transport back to facility. Vital Signs: 13:24 BP 141 / 70; Pulse 105; Resp 24; Pulse Ox 95% on 6 lpm Non-rebreather mask; ph 14:30 BP 138 / 67; Pulse 100; Resp 18; Pulse Ox 98% on 6 lpm NC; ph 15:29 BP 138 / 86; Pulse 99; Resp 16; Temp 97.4; Pulse Ox 98% on 6 lpm NC; ph ED Course: 13:06 Patient arrived in ED. bd 13:06 Galile[facility] Seym[facility]C [facility]. kb 13:06 Connor Dhillon MD is Attending Physician. kb 13:21 Naima Myers, RN is Primary Nurse. ph 13:27 Triage completed. ph 13:27 Arm band placed on Patient placed in an exam room, on a stretcher, on oxygen. ph 13:50 Patient has correct armband on for positive identification. Bed in low position. Call ph light in reach. Side rails up X 1. Pulse ox on. NIBP on. 13:50 Assist provider with laceration repair on left side of forehead that was between 2.6 to ph 7.5 cm using sutures. Set up tray. Performed by Naima Myers RN Patient tolerated well. Patient did not have IV access during this emergency room visit. Administered Medications: 13:43 Drug: Lidocaine Infiltration (1 %) 1 vials 5 ml Infiltration once; to bedside Volume: 5 ph ml; Route: Infiltration; 15:30 Follow up: Response: No adverse reaction ph Medication: 13:50 VIS not applicable for this client. ph Outcome: 13:53 Discharge ordered by . kb 15:29 Discharged to care home. ph 15:29 Condition: stable 15:29 Discharge instructions given to care home, Instructed on discharge instructions, follow up and referral plans. Demonstrated understanding of instructions, follow-up care, 15:32 Patient left the ED. ph Signatures: Galilea Seymour FNP-C FNP-Nisha Rodrigues Patricia, RN RN ph Corrections: (The following items were deleted from the chart) 13: 13:27 PMHx: Cancer; ph ph 13:27 13:27 PMHx: Cancer; ph ph
[2024-12-16 17:10] VITALS: O2SAT 98
[2024-12-16 17:12] VITALS: BP 138/86; TEMP 97.4
== END 2024-12-16 15:32 | disposition home or self-care (01) ==
LOC: ER 12:59
DX: S01.81XA Laceration without foreign body of other part of head, initial encounter (principal); W06.XXXA Fall from bed, initial encounter
CPT/HCPCS: 12052; J2003